=== PATIENT | male | born 1935 | race Caucasian/White ===

== ENCOUNTER 2019-06-16 10:59 | Day surgery (SDC) | payer MEDICARE ==
[~2019-06-16] VITALS: Ht 172.7 cm; Wt 59.6 kg
[~2019-06-16 10:59] MED LIST: ASPI-255 PO; ASPI81TA85 PO; CVS1CAP2 PO; D3 S1CAP PO; EQUALIQ7 PO; FINA5TAB2 PO; FLOM0.4C39 PO; FLUT50SP21 NARES; GABA-1171 PO; LORA-674 PO; MENSTAB PO; METO10TA2 PO; MULT1TAB10 PO; MULTCAP PO; NS 1,000 ML IV ONE; OMEP40CA2 PO; PROBCAP4 PO; RANI1TAB38 PO; SUCR1SUS PO; SUCR1TA PO; VENTAER INH; VITAE20CA PO
[2019-06-16] MEDS ORDERED: LIDOCAINE 2% INJ 100 MG/5 ML SDV (FOR ANES.) As Ordered ONE (12:08)
[2019-06-16] MEDS ORDERED: fentaNYL 100 MCG/2 ML INJECTION (J3010) As Ordered ONE (12:11)
[2019-06-16] MEDS ORDERED: PROPOFOL 200 MG/20 ML VIAL As Ordered ONE (12:11)
[2019-06-16] MEDS ORDERED: KEYT1INJ IV (12:29)
--- NOTE | 2019-06-16 12:59 | ROOR ---
Patient Name: Pablo Blum Procedure Date: 06/16/2019 12:38 PM Date of : 1935 Age: 84 Room: [facility] Gender: Male Note Status: Finalized Procedure: Upper GI endoscopy Indications: Dysphagia Providers: Joshua Delatorre Jr, MD Referring MD: Abdi Mcnulty Requesting Provider: Medicines: Propofol per Anesthesia Complications: No immediate complications. Procedure: Pre-Anesthesia Assessment: - Prior to the procedure, a History and Physical was performed, and patient medications and allergies were reviewed. The patient is competent. The risks and benefits of the procedure and the sedation options and risks were discussed with the patient. All questions were answered and informed consent was obtained. Patient identification and proposed procedure were verified by the physician and the nurse in the pre-procedure area and in the procedure room. Mental Status Examination: alert and oriented. Airway Examination: normal oropharyngeal airway and neck mobility. Respiratory Examination: clear to auscultation. CV Examination: normal. ASA Grade Assessment: II - A patient with mild systemic disease. After reviewing the risks and benefits, the patient was deemed in satisfactory condition to undergo the procedure. The anesthesia plan was to use moderate sedation / analgesia (conscious sedation). Immediately prior to administration of medications, the patient was re-assessed for adequacy to receive sedatives. The heart rate, respiratory rate, oxygen saturations, blood pressure, adequacy of pulmonary ventilation, and response to care were monitored throughout the procedure. The physical status of the patient was re-assessed after the procedure. The Endoscope was introduced through the mouth, and advanced to the second part of duodenum. The upper GI endoscopy was accomplished without difficulty. The patient tolerated the procedure well. Findings: The upper third of the esophagus was normal. An esophago-gastric anastomosis was found in the mid esophagus. A TTS dilator was passed through the scope. Dilation with a 10-11-12 mm balloon dilator was performed to 12 mm. Diffuse moderate inflammation characterized by congestion (edema), erythema, friability and granularity was found in the gastric body, in the gastric antrum and in the prepyloric region of the stomach. The duodenal bulb, first portion of the duodenum and second portion of the duodenum were normal. Impression: - Normal upper third of esophagus. - An esophago-gastric anastomosis was found. Dilated. - Gastritis. - Normal duodenal bulb, first portion of the duodenum and second portion of the duodenum. - No specimens collected. Recommendation: - Discharge patient to home (ambulatory). Joshua Delatorre MD Joshua Delatorre Jr, MD 06/16/2019 12:58:31 PM Electronically signed by Joshua Delatorre Jr, MD Number of Addenda: 0 Note Initiated On: 06/16/2019 12:38 PM Estimated Blood Loss: Estimated blood loss: none.
[2019-06-16 13:45] VITALS: BP 114/72
== END 2019-06-16 13:53 | disposition home or self-care (01) ==
LOC: M OPP 10:59
PROVIDERS: ATTEND Surgery
DX: K29.70 Gastritis, unspecified, without bleeding (principal); Z98.890 Other specified postprocedural states; R13.10 Dysphagia, unspecified; Z79.82 Long term (current) use of aspirin; Z79.899 Other long term (current) drug therapy; Z91.040 Latex allergy status; Z85.118 Personal history of other malignant neoplasm of bronchus and lung; Z92.21 Personal history of antineoplastic chemotherapy; Z87.891 Personal history of nicotine dependence
CPT/HCPCS: 43249; J3010

== ENCOUNTER → 2020-02-23 | Outpatient (REF) | payer MEDICARE ==
[~2020-02-23] MED LIST changes: +FLUT15.820 NARES; -FLUT50SP21 NARES; +KEYT1INJ IV; -NS 1,000 ML IV ONE; -OMEP40CA2 PO; +OMEP40CA97 PO; +SUCR1ORA PO; -SUCR1SUS PO
[2020-02-23 18:00] LABS: C REACTIVE PROTEIN QUANTITATIV < 0.30 MG/DL (0.00-0.30); RHEUMATOID FACTOR QUANT < 10.0 IU/ML (<15.0)
[2020-03-02 10:10] LABS: ANCA-ATYPICAL <1:20 titer (Neg:<1:20); ANGIOTENSIN 1 CONVERTING ENZYM 44 U/L (14-82); ANTINUCLEAR ANTIBODIES DIRECT Negative (Negative); ASPERGILLUS FUMIGATUS AB Negative (Negative); AUREOBASIDIUM PULLULANS Negative (Negative); CYCLIC CITRULLINATED PEPTIDE 10 units (0-19); CYTOPLASMIC NEUTROP AB ANCA-C <1:20 titer (Neg:<1:20); MICROPOLYSPORA FAENI AB Negative (Negative); PERINUCLEAR AB ANCA-P <1:20 titer (Neg:<1:20); PIGEON SERUM AB Negative (Negative); SJOGREN'S ANTI SS-A <0.2 AI (0.0-0.9); SJOGREN'S ANTI SS-B <0.2 AI (0.0-0.9); THERMOACTINOMYCES SACCHARI Negative (Negative); THERMOACTINOMYCES VULGARIS Negative (Negative)
== END ==
LOC: M LAB REF 16:39
PROVIDERS: ATTEND Internal Medicine Pulmonary Disease
DX: J84.10 Pulmonary fibrosis, unspecified (principal)

== ENCOUNTER 2020-11-05 15:57 | Emergency (ER) | payer MEDICARE ==
[~2020-11-05] VITALS: Ht 172.7 cm; Wt 54.5 kg
[~2020-11-05 15:57] MED LIST changes: -ASPI81TA85 PO; +ASPI81TA86 PO
--- OUTSIDE RECORDS SUMMARY | 2020-11-05 16:03 | CCD | Summary of Care ---
Author Author [facility] Organization [facility] Address Unknown Phone Unavailable Care Team Providers Care Fabrication Department Supervisor Name Role Phone Rody Pham MD PCP Reason for Referral * Diagnostic Radiology (Routine) Referred By Contact Referred To Contact Status Reason Specialty Diagnoses / Procedures Lianet Hatfield, [employer]PER[employer] [address] [place] [address] Email: [email or web address] Authorized Radiology Diagnoses Primary adenocarcinoma of right lung P rocedures CT Abdomen Pelvis with Contrast * Diagnostic Radiology (Routine) Referred By Contact Referred To Contact Status Reason Specialty Diagnoses / Procedures Lianet Hatfield, [employer] [address] [place] [address] Email: [email or web address] Authorized Radiology Diagnoses Primary adenocarcinoma of right lung P rocedures CT Thorax with Contrast Reason for Visit * Diagnostic Radiology (Routine) Referred By Contact Referred To Contact Status Reason Specialty Diagnoses / Procedures Lianet Hatfield, [employer] [address] [place] [address] Email: [email or web address] Authorized Radiology Diagnoses Primary adenocarcinoma of right lung P rocedures CT Abdomen Pelvis with Contrast Encounter Details Care Team Description Date Type Department Primary adenocarcinoma of ri ght lung 10/31/[address] [facility] Encounter [address] [id number] Allergies Comments Active Allergy Reactions Severity Noted Date Latex 05/03/2012 documented as of this encounter (statuses as of 11/01/2020) Medications End Date Status Medication Sig Dispensed Refills Start Date Active Tamsulosin HCl (FLOMAX) Take 0.4 mg 0 0.4 MG CAPS by mouth Two Times Daily Active Multiple Take 1 tablet 0 Vitamins-Minerals by mouth (MULTIVITAMIN WITH daily. MINERALS) tablet Active sucralfate (CARAFATE) 1 g TAKE 1 TABLET 3 tablet BY MOUTH 8 BEFORE MEALS DAILY Active finasteride (PROSCAR) 5 Take 5 mg by 3 MG tablet mouth daily 8 Active fluticasone (FLONASE) 50 1 SPRAY IN 3 08/13 MCG/ACT nasal spray EACH NOSTRIL 8 DAILY Active VENTOLIN HFA 108 (90 TAKE 1 PUFF 3 Base) MCG/ACT inhaler BY INHALATION 8 ROUTE EVERY 4 TO 6 HOURS NEEDED Active Cholecalciferol (VITAMIN Take 1 tablet 0 D3) 2000 units TABS by mouth as needed Active aspirin 81 MG tablet Take 81 mg by 0 mouth daily Active Naproxen Sodium (ALEVE) Take 1 0 220 MG CAPS capsule by mouth Two Times Daily Active lidocaine-prilocaine Apply 30 g 3 11/24 (EMLA) cream topically as 9 needed Active gabapentin (NEURONTIN) Take 200 mg 2 01 100 MG capsule by mouth 9 nightly Active loratadine (CLARITIN) 10 TAKE 1 TABLET 5 02/08 MG tablet BY MOUTH ONCE 9 EVERY DAY Active levETIRAcetam 500 MG Oral Take 1 tablet 60 tablet 3 Tablet (KEPPRA) by mouth Two 9 Times Daily Active Sodium Chloride 1 GM Oral Take 1 g by 0 Tablet mouth Three times daily documented as of this encounter (statuses as of 11/01/2020) Active Problems Problem Noted Date Left-sided weakness 10/10/2019 Hyponatremia 10/08/2019 Primary adenocarcinoma of right lung 09/27/2018 Cancer Staging: Clinical: Stage IVB (cT 4, cN3, pM1c) - Signed by Jyoti Florian MD on 10/08/2018 Mass of right lung 09/02/2018 Esophageal cancer 11/01/2013 Spasms right side with hearburn syptoms several month s 05/03/2012 documented as of this encounter (statuses as of 11/01/2020) Immunizations Name Administration Dates Next Due Influenza Quad High Dose 06/07/2020 IM Pres Free >=65YO Influenza Tri High Dose 07/29/2019, 08/04/2018, , 08/12/2016, IM Pres Free >=65YO 08/16/2015 (FLUZONE HD) Influenza, Unspecified 06/07/2020 Pneumococcal Conjugate 06/07/2020, 08/16/2015 PCV13 Pneumococcal 11/19/2004 Polysaccharide PPV23 Tdap 08/16/2015 documented as of this encounter Social History Date Tobacco Use Types Packs/Day Years Used Quit: 1999 Former Smoker Cigarettes 1 43 Smokeless Tobacco: Never Used Comments: PT States he quit smoking in 2 000 Drinks/Week oz/Week Comments Alcohol Use No Sex Assigned at Date Recorded Male 09/01/2018 12:21 PM EST Date Recorded COVID-19 Exposure Response 10/31/2020 12:38 PM EST In the last month, have you been in contact with No / Unsure someone who was confirmed or suspected to have Coronavirus / COVID-19? documented as of this encounter Last Filed Vital Signs Not on filedocumented in this encounter Plan of Treatment Care Team Description Date Type Specialty Colt Garcia MD [facility] [place] [address] [phone] 11/13/2020 Office Visit Hematology and Onco logy Date/Time Name Type Priority Associated Diag noses 10/31/2020 2:[address] Abdomen Pelvis with Imaging Routine Primary adenocarcinoma of Contrast right lung Order Schedule Name Type Priority Associated Diag noses As Needed for 1 Occurrences starting until 10/31/2020 CT Abdomen Pelvis with Imaging Routine Primary adenocarcinoma of Contrast right lung Health Maintenance Due Date Last Done Comments MMR Vaccines (1 of 1 - 1936 Standard series) Varicella Vaccines (1 of 1936 2 - 2-dose childhood series) Zoster Vaccines (1 of 2) 1987 DTaP,Tdap,and Td Vaccines 09/13/2015 08/16/2015 (2 - Td) Influenza Vaccine 07/19/2020 06/07/2020, 06/07/2020, 07/29/2019, Additional history exists Pneumococcal Vaccine: 65+ Completed 06/07/2020, Years 08/16/2015, 11/19/2004 Pneumococcal Vaccine: Completed 06/07/2020, Pediatrics (0 to 5 Years) 08/16/2015, and At-Risk Patients (6 11/19/2004 to 64 Years) HIB Vaccines Aged Out No longer eligible based on patient's age to complete this topic Hepatitis A Vaccines Aged Out No longer eligibl e based on patient's age to complete this topic Hepatitis B Vaccines Aged Out No longer eligibl e based on patient's age to complete this topic IPV Vaccines Aged Out No longer eligible based on patient's age to complete this topic documented as of this encounter Implants Device Identifier Shelf Expiration Date Model / Serial / L ot Implanted Type Area Manufactur er 03/31/2023 [id number] / / [id number] Port- Power P-A-C -10 Fr Dl Lp - Left: Chest STEVE HS [id number] Wall MEDICAL Implanted: Qty: 1 on 10/27/2018 by Zackery Leigh MD at [facility] documented as of this encounter Procedures Comments Procedure Name Priority Date/Time Associated Diag nosis CT THORAX WITH CONTRAST Routine 10/31/2020 [place] [address] 2:21 PM EST right lung documented in this encounter Results * CT Thorax with Contrast (10/31/2020 2:21 PM EST) Specimen Impressions Performed At IMPRESSION: There is an enlarging 4.7 mm in diameter nodule in the left upper [facility] lobe. There are 2 adjacent nodules one of which was not seen previously and the other which has increased in size. Ther e is a 1.1 cm in diameter nodule at the right apex. Its size is unchanged howev er it appears less dense than on the prior examination. Stable pleural-based opacities are seen in the right upper and right middle lobes. Stable prominen t mediastinal lymph nodes are identified. There are new sclerotic foci in the bod y of the sternum. They are worrisome for blastic metastases. Patient is status post esophagectomy wi th gastric pull-through. There is persistent dilatation of the residual n ative esophagus. Mild stable apparent bilateral basilar honeycombing. Narrative Performed At CT thorax. [facility] INDICATION: Primary adenocarcinoma righ t lung. Reevaluate. TECHNIQUE: A CT of the thorax was perfo rmed. 1 mm axial images were made after the intravenous administration of 100 M LO of Omnipaque 300. Comparison is made with an examination dated July 10, 2020. Automated dose reduction techniques and/or adjustment according to patient size were used. FINDINGS: Airway patency is demonstrate d through the segmental level. There is moderate centrilobular emphysema. There is stable scarring at the left yazmin ng apex. Patchy and coarse linear parenchymal densities are present in th e left upper lobe. There is a persistent wedge-shaped pleural-based opacity abut ting the aortic arch. Irregular groundglass densities are also once aga in seen in the left upper lobe. There is a 4.7 mm in nodule in the lateral aspec t of the left upper lobe. It previously measured 3.7 mm. It is currently both l arger and denser than on the prior study. Slightly caudal to this nodule are 2 ad ditional nodules. The larger measures approximately 5 mm. Previously it measu red 3.4 mm. The smaller nodule was not seen previously. There is a stable irre gular predominantly linear pleural-based opacity in the superior segment of the left lower lobe. There is stable scarring at the right l debra apex. There is a pleural-based partially cavitated 1.1 cm in diameter nodule at the right apex. It previously measured 1.1 cm as well. It is subjecti vely less dense than it was on the prior examination. There is a subjacent 6 mm in diameter nodule that previously measured 5 mm. 2 pleural-based opacitie s are identified. The more cephalad appears to be in the anterior segment o f the right upper lobe. It currently measures 1.2 cm. It previously measured 1.1 cm. Second opacity appears to be in the right middle lobe. It measures appr oximately 4 cm. It previously measured 4 cm as well. There is a small less than 5 mm in diameter roughly nodular opacity in the caudal portion of the lateral se gment of the right middle lobe. It is unchanged. A collection of small cystic spaces is seen also in the caudal portion of the right middle lobe. It al so is unchanged. There is a stable roughly triangular pleural-based opacit y in the superior segment of the right lower lobe. A second similar area of pleural-based parenchymal density is seen in the lateral aspect of the right lower lobe. There are apparent bilateral basilar ar eas of honeycombing. Right pleural thickening is noted. Ther e is no evidence of pleural effusion. There are degenerative changes in the t horacic spine. Changes in several of the posterior right ribs suggest prior trau ma and a probable right posterior thoracotomy. There is a stable T8 compression fractu re. There is a stable fracture of the T2 spinous process. There are new scleroti c foci in the body of the sternum. Prominent lymph nodes are again identif ied in the mediastinum. The patient is status post esophagectom y with gastric pull-through. There is persistent dilatation of the residual p roximal esophagus. The intrathoracic portion of the stomach is grossly unrem arkable. For discussion of findings below the diaphragm please refer to the CT ab domen and pelvis done on the same date. There are atherosclerotic changes in th e thoracic aorta and branch vessels. No filling defects are identified in the c entral opacified pulmonary artery segments. Procedure Note Interface, Received Via [employer] [facility] - 10/31/2020 3:[address] thorax. INDICATION: Primary adenocarcinoma right lung. Reevaluate. TECHNIQUE: A CT of the thorax was performed. 1 mm axial images were made after the intravenous administration of 100 MLO of Omnipaque 300. Comparison is made with an examination dated July 10, 2020. Automated dose reduction techniques and/or adjustment according to patient size were used. FINDINGS: Airway patency is demonstrated through the segmental level. There is moderate centrilobular emphysema. There is stable scarring at the left lung apex. Patchy and coarse linear parenchymal densities are present in the left upper lobe. There is a persistent wedge-shaped pleural-based opacity abutting the aortic arch. Irregular groundglass densities are also once again seen in the left upper lobe. There is a 4.7 mm in nodule in the lateral aspect of the left upper lobe. It previously measured 3.7 mm. It is currently both larger and denser than on the prior study. Slightly caudal to this nodule are 2 additional nodules. The larger measures approximately 5 mm. Previously it measured 3.4 mm. The smaller nodule was not seen previously. There is a stable irregular predominantly linear pleural-based opacity in the superior segment of the left lower lobe. There is stable scarring at the right lung apex. There is a pleural-based partially cavitated 1.1 cm in diameter nodule at the right apex. It previously measured 1.1 cm as well. It is subjectively less dense than it was on the prior examination. There is a subjacent 6 mm in diameter nodule that previously measured 5 mm. 2 pleural-based opacities are identified. The more cephalad appears to be in the anterior segment of the right upper lobe. It currently measures 1.2 cm. It previously measured 1.1 cm. Second opacity appears to be in the right middle lobe. It measures approximately 4 cm. It previously measured 4 cm as well. There is a small less than 5 mm in diameter roughly nodular opacity in the caudal portion of the lateral segment of the right middle lobe. It is unchanged. A collection of small cystic spaces is seen also in the caudal portion of the right middle lobe. It also is unchanged. There is a stable roughly triangular pleural-based opacity in the superior segment of the right lower lobe. A second similar area of pleural-based parenchymal density is seen in the lateral aspect of the right lower lobe. There are apparent bilateral basilar areas of honeycombing. Right pleural thickening is noted. There is no evidence of pleural effusion. There are degenerative changes in the thoracic spine. Changes in several of the posterior right ribs suggest prior trauma and a probable right posterior thoracotomy. There is a stable T8 compression fracture. There is a stable fracture of the T2 spinous process. There are new sclerotic foci in the body of the sternum. Prominent lymph nodes are again identified in the mediastinum. The patient is status post esophagectomy with gastric pull-through. There is persistent dilatation of the residual proximal esophagus. The intrathoracic portion of the stomach is grossly unremarkable. For discussion of findings below the diaphragm please refer to the CT abdomen and pelvis done on the same date. There are atherosclerotic changes in the thoracic aorta and branch vessels. No filling defects are identified in the central opacified pulmonary artery segments. IMPRESSION: There is an enlarging 4.7 mm in diameter nodule in the left upper lobe. There are 2 adjacent nodules one of which was not seen previously and the other which has increased in size. There is a 1.1 cm in diameter nodule at the right apex. Its size is unchanged however it appears less dense than on the prior examination. Stable pleural-based opacities are seen in the right upper and right middle lobes. Stable prominent mediastinal lymph nodes are identified. There are new sclerotic foci in the body of the sternum. They are worrisome for blastic metastases. Patient is status post esophagectomy with gastric pull-through. There is persistent dilatation of the residual [place] and [place] esophagus. Mild stable apparent bilateral basilar honeycombing. Performing Organization Address City/State/Zipcode Ph one Number [facility] [address] [place] [address] documented in this encounter Visit Diagnoses Diagnosis Primary adenocarcinoma of right lung documented in this encounter Administered Medications Action Date Dose Rate Site Medication Order [facility] 10/31/2020 1:55 PM EST 20 mLs iohexol (OMNIPAQUE) 240 MG/ML contrast Given 20 mL 20 mL, Oral, IMG once PRN, Contrast, Starting 10/31/20 at 1305, For 1 day , Imaging Protocol, Dilute before administering, Action Date Dose Rate Site Medication Order [facility] 10/31/2020 1:10 PM EST 20 mLs iohexol (OMNIPAQUE) 240 MG/ML contrast Given 20 mL 20 mL, Oral, 1 TIME IMAGING, Wed 1 at 1315, For 1 dose, Imaging Protocol, Dilute before administering, 10/31/2020 2:15 PM EST 100 mLs iohexol (OMNIPAQUE) 300 MG/ML contrast New Bag injection 100 mL 100 mL, Intravenous, 1 TIME IMAGING, We d 10/31/20 at 1330, For 1 dose, Imaging Protocol documented in this encounter
--- OUTSIDE RECORDS SUMMARY | 2020-11-05 16:03 | CCD | Summary of Care ---
Author Author [facility] Organization [facility] Address Unknown Phone Unavailable Care Team Providers Care Polymer Materials Consultant Name Role Phone Rody Pham MD PCP Reason for Visit * Reason Comments Follow-up Encounter Details Care Team Description Date Type Department Colt Garcia MD [address], [place] [id number] Primary adenocarcinoma of right lung (Pr imary Dx) 10/23/2020 Office Visit Hematology Oncology [address] [place] [phone] Allergies Comments Active Allergy Reactions Severity Noted Date Latex 05/03/2012 documented as of this encounter (statuses as of 10/28/2020) Medications End Date Status Medication Sig Dispensed [...] as of this encounter (statuses as of 10/28/2020) Active Problems Problem Noted Date Left-sided weakness 10/10/2019 Hyponatremia 10/08/2019 Primary adenocarcinoma of right lung 09/27/2018 Cancer Staging: Clinical: Stage IVB (cT 4, cN3, pM1c) - Signed by Jyoti Florian MD on 10/08/2018 Mass of right lung 09/02/2018 Esophageal cancer 11/01/2013 Spasms right side with hearburn syptoms several month s 05/03/2012 documented as of this encounter (statuses as of 10/28/2020) Immunizations Name Administration Dates Next Due Influenza Quad High Dose 06/07/2020 IM Pres Free >=65YO Influenza Tri High Dose 07/29/2019, 08/04/2018, , 08/12/2016, IM Pres Free >=65YO 08/16/2015 (FLUZONE HD) Influenza, Unspecified 06/07/2020 Pneumococcal Conjugate 06/07/2020, 08/16/2015 PCV13 Pneumococcal 11/19/2004 Polysaccharide PPV23 Tdap 08/16/2015 documented as of this encounter Social History Date Tobacco Use Types Packs/Day Years Used Quit: 2000 Former Smoker Cigarettes 1 43 Smokeless Tobacco: Never Used Comments: PT States he quit smoking in 2 000 Drinks/Week oz/Week Comments Alcohol Use No Sex Assigned at Date Recorded Male 09/01/2018 12:21 PM EST Date Recorded COVID-19 Exposure Response 10/23/2020 12:35 PM EST In the last month, have you been in contact with No / Unsure someone who was confirmed or suspected to have Coronavirus / COVID-19? documented as of this encounter Last Filed Vital Signs Reading Time Taken Comments Vital Sign 149/66 10/23/2020 3:28 PM EST Blood Pressure 82 10/23/2020 3:28 PM EST Pulse 36.9 C (98.4 F) 10/23/2020 3:28 PM EST Temperature 14 10/23/2020 3:28 PM EST Respiratory Rate 98% 10/23/2020 3:28 PM EST Oxygen Saturation - - Inhaled Oxygen Concentration 58.5 kg (129 lb) 10/23/2020 12:53 PM EST Weight - - Height 19.05 10/08/2019 2:30 AM EST Body Mass Index documented in this encounter Progress Notes * Colt Garcia MD - 10/23/2020 1:00 PM EST I reviewed, examined and discussed the history, exam findings, assessment and pl an with the advanced manager practice during the visit and agree with the diag nosis and treatment plan as documented. He continues to do well on single agent pembrolizumab. We will proceed with treatment today and see him in 3 weeks for reevaluation. He is approaching the 2-year magdiel of his pembrolizumab and if he is doing well after 2 years of therapy we will consider a treatment break. * Lianet Hatfield NP - 10/23/2020 1:00 PM EST Hematology/Oncology Follow Up Note Diagnosis: 1. Primary adenocarcinoma of right lung Date of Cancer Diagnosis: 2007 and 09/2018( Lung) Cancer Stage Primary adenocarcinoma of right lung, Clinical: Stage IVB (cT4, cN3, pM1c) Past Treatment: [No treatment plan] Current Treatment: Treatment Goal: Curative Plan Name: OP KEYTRUDA NON-SMALL CELL LUNG PEMBROLIZUMAB Status: Active Start Date: 10/27/2018 End Date: 11/17/2020 (Planned) Provider: Kathia Matamoros NP Chemotherapy: pembrolizumab (KEYTRUDA) 200 mg in sodium chloride 0.9 % 50 mL brisa mo infusion, 200 mg, Intravenous, Once, 31 of 33 cycles Administration: 200 mg (10/27/2018), 200 mg (11/24/2018), 200 mg (07/20/2019), 200 mg (12/15/2018), 200 mg (01/05/2019), 200 mg (01/26/2019), 200 mg (02/16/2019), 200 mg (03/09/2019), 200 mg (04/12/2019), 200 mg (05/05/2019), 200 mg (06/02/2019), 200 mg (06/28/2019), 200 mg (08/11/2019), 200 mg (09/01/2019), 200 mg (09/22/2019), 200 m g (10/27/2019), 200 mg (11/17/2019), 200 mg (12/13/2019), 200 mg (01/03/2020), 200 mg (01/24/2020), 200 mg (02/14/2020), 200 mg (03/08/2020), 200 mg (03/29/2020), 200 mg (04/19/2020), 200 mg (05/10/2020), 200 mg (05/31/2020), 200 mg (06/21/2020), 200 mg (), 200 mg (08/13/2020), 200 mg (09/03/2020), 200 mg (09/27/2020) ECOG Performance Status: 1- Restricted in physically strenuous activity but ambu latory and able to carry out work of a light or sedentary nature, e.g., light ho use work, office work Oncologic History: Oncologic History Pablo Blum is a 85 y.o. male who used to be a former patient of Dr. Adhikari'casper for a past medical history of esophageal carcinoma s/p neoadjuvant chemoradiati on and esophagectomy in 2007 and stage 1 adenocarcinoma s/p SBRT in 2008. In July 2018, the patient noted that he was progressively short of breath and fatigue. A CT thorax was obtained on 08/20/2018 which showed new bilateral lung field spiculated nodules with a new spiculated mass in the RLL measuring 3.5 x 4.2 x 2.9 cm. He was referred to the [facility] where it was recommended that he undergo a PET scan. A PET scan on 09/06/18 showed multiple bilateral pulmona ry nodules, mediastinal lymphadenopathy, and a T2 spinous process lytic lesion. He underwent an IR guided biopsy of the T2 lesion which came back positive for m etastatic carcinoma.PD-L1 score came back as 90%. He was started on single agent Pembrolizumab on 10/27/2018. The first interval sc an after C4 was done on 01/26/19 and it showed good response to Keytruda.We saw t he patient on 05/05/2019. At that point in time, he is overall doing well. He continued on Keytruda cycle #9.He was seen in our office on 06/02/2019, and at t hat visit, he did receive cycle #10 of Keytruda. He was also noted to be iron d eficient, for which we did need approval for Injectafer. We also did review CT scans, in which a CT of the thorax showed decrease in size and conspicuity of mu ltiple pleural-based and parenchymal nodules/masses, and a CT of the abdomen lukas wed no CT evidence to suggest intra-abdominal metastatic disease.He was seen in our office on 07/20/2019. At that point in time, he did receive his second dose of Injectafer for his iron deficiency. Also received cycle #12 of Keytruda.He was seen in our office on 09/22/2019. At that point in time, he did receive cyc le #15 of Keytruda. We did review his CT scans in which, Dr. Garcia felt they were overall stable. In regard to the new roughly nodule or spiculated opacity in the left lower lobe, the plan was to continue to monitor this. He was overall doing well until October 08, 2019, which he started experiencing slurred speech and left arm numbness. He ended up going to the ED on September. Stroke code was activated. He was evaluated by the neuro team. He had a CT of the head, which showed no acute ischemic stroke or hemorrhage. He w as given tPA in the ED. He was admitted to the hospital. While he was admitted , he was monitored closely. MRI of the brain did not disclose any acute stroke. He was found to be hyponatremic. He was repleted with sodium tablets and also IV fluids. He was eventually discharged on October 13 to rehab.He has been following in our office since that time. Had a repeat imaging on the [facility] 2019 which showed numerous stable pleural-based masses within the right lung , stable scattered prominent mediastinal lymph nodes, stable tiny subpleural nod ule within the lingula. It did show a new, although chronic appearing, moderate T8 compression fracture. Patient was asymptomatic. The plan was to continue w ith Keytruda. He was seen in our office on 03/29/2020. At that point in time we did review CT scans in which the CT of the thorax showed stable appearance of n umerous pulmonary base masses predominantly within the right lung. Mild mediast inal adenopathy without significant change. CT of the abdomen showed no evidenc e of disease progression. The plan was to continue with Keytruda. He presented to our office on 07/19/2020. On that day he did receive cycle 28 of Keytruda. We also did review his CT scan which showed no significant evidence of progressi on of disease. Dr. Sharma did review the minimal growth in the lung nodule al though this did not warrant changing patient's treatment. Plan was to get a rep eat scan in [address] of the abdomen did show cholelithiasis consi dering this he was referred to GI. He did follow-up with the GI doctor and infor ms me a cholecystectomy is not warranted at this time. Most recently was seen i n our office on 09/27/2020 and on that day he did receive cycle #31 of Keytruda. INTERVAL HISTORY: Since his last visit he has been well. He notifies me he did not have any diffi culty with treatment. Unfortunately did miss his CT scans due to weather.In reg ards to his lung cancer continues to have baseline shortness of breath on minima l activity but overall tolerable. Does wear 2 L of oxygen at night. He denies any dysphagia, odynophagia, hoarseness of the voice or hemoptysis. Denies any c ough.Denies any immune related toxicity such as colitis, rash. He comes in today to be further evaluated and assess how he is doing. 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 He reports that he quit sm oking about 21 years ago. His smoking use included cigarettes. He has a 43.00 pa ck-year smoking history. He has never used smokeless tobacco. He reports that he does not drink alcohol or use drugs. Medications and Allergies Allergies Allergen Reactions Latex Current Outpatient Medications on File Prior to Visit Medication Sig Dispense Refill aspirin 81 MG tablet Take 81 mg by mouth daily Cholecalciferol (VITAMIN D3) 2000 units TABS Take 1 tablet by mouth as ne eded finasteride (PROSCAR) 5 MG tablet Take 5 mg by mouth daily 3 fluticasone (FLONASE) 50 MCG/ACT nasal spray 1 SPRAY IN EACH NOSTRIL IMTIAZ Y 3 gabapentin (NEURONTIN) 100 MG capsule Take 200 mg by mouth nightly 2 levETIRAcetam 500 MG Oral Tablet (KEPPRA) Take 1 tablet by mouth Two Time s Daily 60 tablet 3 lidocaine-prilocaine (EMLA) cream Apply topically as needed 30 g 3 loratadine (CLARITIN) 10 MG tablet TAKE 1 TABLET BY MOUTH ONCE EVERY DAY 5 Multiple Vitamins-Minerals (MULTIVITAMIN WITH MINERALS) tablet Take 1 tab let by mouth daily. Naproxen Sodium (ALEVE) 220 MG CAPS Take 1 capsule by mouth Two Times Loni ly Sodium Chloride 1 GM Oral Tablet Take 1 g by mouth Three times daily sucralfate (CARAFATE) 1 g tablet TAKE 1 TABLET BY MOUTH BEFORE MEALS IMTIAZ Y 3 Tamsulosin HCl (FLOMAX) 0.4 MG CAPS Take 0.4 mg by mouth Two Times Daily VENTOLIN HFA 108 (90 Base) MCG/ACT inhaler TAKE 1 PUFF BY INHALATION ROUT E EVERY 4 TO 6 HOURS NEEDED 3 No current facility-administered medications on file prior to visit. Review of Systems Constitutional: Positive for fatigue. Negative for activity change, appetite didier nge, chills, diaphoresis, fever and unexpected weight change. HENT: Negative. Eyes: Negative. Respiratory: Positive for shortness of breath. Negative for apnea, cough, chokin g, chest tightness, wheezing and stridor. " My sob has been the same. I am fine at rest, I usually get sob when I do activities around the house. I still wear oxygen at night." Cardiovascular: Negative. Negative for chest pain, palpitations and leg swellin g. Gastrointestinal: Negative. Negative for abdominal distention, abdominal pain, anal bleeding, blood in stool, constipation, diarrhea, nausea, rectal pain and v omiting. Endocrine: Negative. Genitourinary: Negative. Musculoskeletal: Negative. Skin: Negative. Allergic/Immunologic: Negative. Neurological: Negative. Hematological: Negative. Psychiatric/Behavioral: Negative. All other systems reviewed and are negative. Objective: Vitals: Vitals - 1 value per visit 09/03/2020 09/27/2020 10/23/2020 SYSTOLIC 145 155 119 DIASTOLIC 69 77 68 PULSE 72 71 87 TEMPERATURE 97.3 97.5 97.9 RESPIRATIONS 16 12 12 Weight (kg) 59.058 kg 60.328 kg 58.514 kg HEIGHT - - - SPO2 96 99 95 BODY MASS INDEX 19.23 kg/m2 19.64 kg/m2 19.05 kg/m2 PAIN SCALE - SCORE 0 0 0 PAIN SCALE - LOCATION - - - Some recent data might be hidden Physical Exam Vitals signs reviewed. Constitutional: General: He is not in acute distress. Appearance: Normal appearance. He is not ill-appearing, toxic-appearing or di aphoretic. Comments: Tomiposis,accompanied by SALVADOR: Head: Normocephalic and atraumatic. Right Ear: External ear normal. Left Ear: External ear normal. Nose: Nose normal. No congestion or rhinorrhea. Mouth/Throat: Mouth: Mucous membranes are moist. Pharynx: Oropharynx is clear. No oropharyngeal exudate or posterior oropharyn geal erythema. Eyes: General: No scleral icterus. Right eye: No discharge. Left eye: No discharge. Extraocular Movements: Extraocular movements intact. Conjunctiva/sclera: Conjunctivae normal. Pupils: Pupils are equal, round, and reactive to light. Neck: Musculoskeletal: Normal range of motion and neck supple. No neck rigidity or muscular tenderness. Vascular: No carotid bruit. Cardiovascular: Rate and Rhythm: Normal rate and regular rhythm. Pulses: Normal pulses. Heart sounds: Normal heart sounds. No murmur. No friction rub. No gallop. Pulmonary: Effort: Pulmonary effort is normal. No respiratory distress. Breath sounds: Normal breath sounds. No stridor. No wheezing, rhonchi or rale s. Chest: Chest wall: No tenderness. Abdominal: General: Abdomen is flat. Bowel sounds are normal. There is no distension. Palpations: Abdomen is soft. There is no mass. Tenderness: There is no abdominal tenderness. There is no right CVA tendernes s, left CVA tenderness, guarding or rebound. Hernia: No hernia is present. Musculoskeletal: Normal range of motion. General: No swelling, tenderness, deformity or signs of injury. Right lower leg: No edema. Left lower leg: No edema. Lymphadenopathy: Cervical: No cervical adenopathy. Skin: General: Skin is warm and dry. Coloration: Skin is not jaundiced or pale. Findings: No bruising, erythema, lesion or rash. Comments: Port intact to chest wall Neurological: General: No focal deficit present. Mental Status: He is alert and oriented to person, place, and time. Psychiatric: Mood and Affect: Mood normal. Behavior: Behavior normal. Thought Content: Thought content normal. Judgment: Judgment normal. Imaging Ct Abdomen Pelvis With Contrast Result Date: 07/10/2020 IMPRESSION: No definite evidence of progression of malignancy on the current study. There is mild intrahepatic biliary duct prominence and increasing size of the co mmon bile duct. Cannot exclude filling defects within the common bile duct and c orrelation with an MRCP is suggested as clinically indicated. The liver is other clarke unchanged compared to the most recent previous study. Cholelithiasis and mild gallbladder wall thickening and enhancement. This is unc hanged since the previous study. It could be further evaluated at the time of an MRCP or an ultrasound. Calcifications in the region of the omentum and adjacent to the upper pole of th e spleen. This is most suggestive of old fat necrosis more than treated disease and this was present on the previous study dated 12/19/2008 but has since become c alcified. Status post gastric pull-up with fluid level within it. It is associated with mi ld rim enhancement and thickening which is was present on the previous CT scan. In addition there is a focal area of thickening at the level of the hiatus and t his should be further evaluated to exclude an underlying lesion or inflammation. . It is likely inflammatory in nature since it was present on the previous CT sc an since 12/19/2008 and was also seen on the most recent CT scan dated 03/26/2020. Diverticulosis without evidence of acute diverticulitis. Diffuse osteopenia and mottled appearance of the pelvic bones and proximal femur with multiple areas of lucencies throughout the bones. This could be related to diffuse osteopenia but cannot exclude multiple myeloma or metastatic disease. R ecommend correlation with an MRI and clinical findings. This is present on the m ost recent previous study. Other chronic findings as described above. Ct Thorax With Contrast Result Date: 07/10/2020 IMPRESSION: 1. A mixed solid and groundglass opacity within the left upper lobe has a solid nodular component which has been increasing in size of the past 2 years. These f indings are concerning for primary lung malignancy such as adenocarcinoma. 2. Stable predominantly pleural-based opacities throughout both lungs are noted. 3. Stable lymphadenopathy within the mediastinum. No significant lymphadenopathy within either hilar is identified. 4. No significant change in the irregular lucency and sclerosis within the T2 to the spinous process Lab Review Office Visit on 10/23/2020 Component Date Value Ref Range Status White Blood Cell 10/23/2020 7.9 4 - 10 10*3/uL Final Red Blood Cell 10/23/2020 4.01* 4.6 - 6.1 10*6/uL Final Hemoglobin 10/23/2020 12.7* 13.5 - 18 g/dL Final Hematocrit 10/23/2020 37.0* 41 - 53 % Final Mean Cell Volume 10/23/2020 92.4 80 - 96 fL Final Mean Cell Hemoglobin 10/23/2020 31.7 27 - 33 pg Final Mean Cell Hgb Conc 10/23/2020 34.3 32.0 - 36.0 g/dL Final Red Cell Dist Width 10/23/2020 13.4 11.5 - 14.5 % Final Platelet Count 10/23/2020 219 150 - 400 10*3/uL Final Differential Type 10/23/2020 Automated Diff Final Neutrophil 10/23/2020 74 % Final Lymphocyte 10/23/2020 8 % Final Monocyte 10/23/2020 10 % Final Eosinophil 10/23/2020 7 % Final Basophil 10/23/2020 1 % Final Abs Neutrophil 10/23/2020 5.87 1.8 - 7.0 10*3/uL Final Abs Lymphocyte 10/23/2020 0.60* 1.2 - 4.0 10*3/uL Final Abs Monocyte 10/23/2020 0.78 0 - 0.8 10*3/uL Final Abs Eosinophil 10/23/2020 0.56* 0 - 0.5 10*3/uL Final Abs Basophil 10/23/2020 0.07 0 - 0.2 10*3/uL Final Nucleated Red Blood Cells 10/23/2020 0 0 - 0 /100 Final ] Assessment: The patient is an 85-year-old gentleman, who has past medical history of esophageal carcinoma, status post neoadjuvant chemotherapy and radiation, and esophagectomy in 2018, and stage I adenocarcinoma, status post SBRT in 2008. In early 2017, he was diagnosed with stage IV adenocarcinoma of the lung with ri ght lower lobe mass, mediastinal adenopathy in T2 spinous lesion also, and bilat eral pulmonary nodules T4 N3 M1c, stage IV, PD-L1 expression was 90%. He was st arted on Keytruda since October 2018. He is status post 30 cycles of Keytruda. Patient's recent CT scans from June 2020 overall showed no significant evid ence of progression of disease. Dr. Garcia has reviewed the minimal growth in the lung nodule this does not warrant changing patient's treatment. Considering he is overall doing well and not significantly symptomatic besides stable sob, we will continue with Keytruda with plans to repeat a scan in 3 months time. We plan on proceeding with a total of 2 years of immunotherapy. In regards to the cholelithiasis findings on the CT of the abdomen patient did follow up with GI and informs me cholecystectomy was not warranted at this time. 1. Stage IV Lung cancer. At this present time,we will proceed with cycle #32 of Keytruda. 2. Iron deficiency anemia. S/p 1 dose of Injectafer. Recent ferritin from was 15 5.We will hold on injectafer today. 3. Fatigue/thyroid monitoring while on immunotherapy. TSH from today is pending. 4. Hyponatremia. CMP shows sodium 132. Patient is asymptomatic.No intervention w e will continue to monitor this at his next appt. 5. SOB.Stable since last visit. No further intervention is needed.Patient is on nocturnal oxygen. 6. HTN.Improved. Asymptomatic. We will continue to montior BP moving forward 7. Weight loss. Weight has minimally decreased. We will continue to trend patien t weight moving forward. 8. Cholelithiasis and mild gallbladder wall thickening.Patient informs me he has met with GI and at this point they do not recommend removing his gallbladder. We will further evaluate this on his next ct scan. Plan: Pablo Blum should return in 3 weeks for ov with and Valentino rodriguez Imaging prior to return to clinic?:yes,ct thorax,abdomen and pelvis Labs on return to clinic? yes,cbc,cmp,tsh Medication changes? no Opioid induced constipation? no Meds reconciled? yes Referrals needed? no I did notify if they develop any problems or issues prior to return, they should feel free to give our office a call immediately 24 hours a day. Pt confirms hav ing number to the CC. Certain parts of this note may have been carried over from prior Hematology/Onco logy notes to maintain accuracy of patient's pertinent medical history and kody nuity of care. The details were verified and edited as appropriate. Patient was seen discussed and examined by myself and Dr. Jose Hatfield NP-C documented in this encounter Nursing Notes * Judy Lara RN - 10/23/2020 1:00 PM EST TREATMENT ADMINISTRATION NOTE: Pablo Blum presents to infusion for Cycle 32, Day 1 of Keytruda. See Oncolo gy Nursing Assessment flowsheet for patients assessment.Port flushed easil y and blood return was confirmed before, during, and after treatment. Patient to lerated infusion well. Following infusion, Port discontinued per protocol. VS st able, and as noted below. Patient encouraged to call with any questions or yecenia rns and aware of 24 hour on-call service. AVS provided with next appointment michelle e and time. Patient discharged home, accompanied by . Visit Vitals BP 149/66 (BP Location: Left arm) Pulse 82 Temp 36.9 C (98.4 F) (Oral) Resp 14 Wt 58.5 kg (129 lb) SpO2 98% BMI 19.05 kg/m documented in this encounter Plan of Treatment Care Team Description Date Type Specialty 10/31/2020 Appointment Radiology Colt Garcia MD [facility] [place] [address] [phone] 11/13/2020 Office Visit Hematology and Onco logy Health Maintenance Due Date Last Done Comments [...] Area Manufactur er 03/31/2023 [id number] / / [id number] Port- Power P-A-C -10 Fr Dl Lp - Left: Chest STEVE HS [id number] Wall MEDICAL Implanted: Qty: 1 on 10/27/2018 by Zackery Leigh MD at [facility] documented as of this encounter Procedures Comments Procedure Name Priority Date/Time Associated Diag nosis CBC AND DIFFERENTIAL STAT 10/23/2020 Primary a denocarcinoma of 12:45 PM EST right lung TSH Routine 10/23/2020 Primary adenoca rcinoma of 12:45 PM EST right lung COMPREHENSIVE METABOLIC STAT 10/23/2020 Primar y adenocarcinoma of PANEL 12:45 PM EST right lung documented in this encounter Results * TSH (10/23/2020 12:45 PM EST) TSH 3.280 0.270 - 4.200 [facility] u[IU]/mL CLINICAL PATHOLOGY Specimen Plasma Performing Organization Address [facility] one Number [facility] CLINICAL [address] [place], [place] [address] PATHOLOGY * Comprehensive metabolic panel (10/23/2020 12:45 PM EST) Albumin 4.0 3.5 - 5.2 g/dL [facility] PATHOLOGY Bilirubin, 0.4 <1.2 mg/dL [facility] Total CLINICAL PATHOLOGY Calcium 9.1 8.8 - 10.2 mg/dL [facility] PATHOLOGY Chloride 97 (L) 98 - 107 mmol/L [facility] PATHOLOGY Creatinine 0.83 0.70 - 1.20 mg/dL [facility] Glucose 161 (H) 70 - 140 mg/dL [facility] PATHOLOGY Alkaline 82 40 - 129 U/L [facility] Phosphatase CLINICAL PATHOLOGY Potassium 4.1 3.4 - 5.1 mmol/L [facility] Total Protein 6.6 6.4 - 8.3 g/dL [facility] Sodium 132 (L) 136 - 145 mmol/L [facility] PATHOLOG[facility] AST/SGO 13 <40 U/L [facility] Blood Urea 15 8 - 23 mg/dL [facility] Nitrogen CLINICAL PATHOLOGY Osmolality, Parker 278 275 - 300 mosm/kg [facility] BUN/Cre Ratio 18 [facility] PATHOLOGY Bicarbonate 26 22 - 29 mmol/L [facility] PATHOLOGY ALT/SGP 10 <41 U/L [facility] PATHOLOGY Anion Gap 9 8 - 15 mmol/L [facility] PATHOLOGY GFR Non eGFR is not calculated in >60 mL/min/1.73m2 [facility] 2009 patients <18 or >80 years of CLINICAL CDK-EPI age. PATHOLOGY GFR eGFR is not calculated in >60 mL/min/1.73m2 [facility] 2008 patients <18 or >80 years of CLINICAL CKD-EPI age. PATHOLOGY Specimen Plasma Performing Organization Address [facility] one Number [facility] [address] [place], [place] [address] PATHOLOGY * CBC and differential (10/23/2020 12:45 PM EST) White Blood 7.9 4 - 10 10*3/uL [facility] Clin Pathology Red Blood Cell 4.01 (L) 4.6 - 6.1 10*6/uL [facility] Clin Pathology Hemoglobin 12.7 (L) 13.5 - 18 g/dL [facility] Clin Pathology Hematocrit 37.0 (L) 41 - 53 % [facility] Clin Pathology Mean Cell 92.4 80 - 96 fL [facility] Volume [facility] Clin Pathology Mean Cell 31.7 27 - 33 pg [facility] Hemoglobin [facility] Clin Pathology Mean Cell Hgb 34.3 32.0 - 36.0 g/dL [facility] Clin Pathology Red Cell Dist 13.4 11.5 - 14.5 % [facility] Width [facility] Clin Pathology Platelet Count 219 150 - 400 10*3/uL [facility] Clin Pathology Differential Automated Diff [facility] Type [facility] Clin Pathology Neutrophil 74 % [facility] Clin Pathology Lymphocyte 8 % [facility] Clin Pathology Monocyte 10 % [facility] Clin Pathology Eosinophil 7 % [facility] Clin Pathology Basophil 1 % [facility] Clin Pathology Abs Neutrophil 5.87 1.8 - 7.0 10*3/uL [facility] Clin Pathology Abs Lymphocyte 0.60 (L) 1.2 - 4.0 10*3/uL [facility] Clin Pathology Abs Monocyte 0.78 0 - 0.8 10*3/uL [facility] Clin Pathology Abs Eosinophil 0.56 (H) 0 - 0.5 10*3/uL [facility] Clin Pathology Abs Basophil 0.07 0 - 0.2 10*3/uL [facility] Clin Pathology Nucleated Red 0 0 - 0 /100{WBCs} [facility] Blood Cells [facility] Clin Pathology Specimen EDTA Whole Blood Performing Organization Address City/State/[facility] [place] Ph one Number [facility] [address] [place], [place] [address] PATHOLOGY [facility] [address] [place], [place] [address] Clin Pathology documented in this encounter Visit Diagnoses Diagnosis Primary adenocarcinoma of right lung - Primary documented in this encounter Administered Medications Action Date Dose Rate Site Medication Order MAR Action 10/23/2020 2:27 PM EST 200 mg 100 mL/hr pembrolizumab (KEYTRUDA) 200 mg in New Bag sodium chloride 0.9 % 50 mL chemo infusion 200 mg, Intravenous, Administer over 30 Minutes, Once, 10/23/20 at 1400, For 1 dose documented in this encounter
--- OUTSIDE RECORDS SUMMARY | 2020-11-05 16:03 | CCD ---
Continuity of Care Document (CCD) Created on: 10/09/2020 Pablo Blum External Reference #: [id number] : [id number] Sex: Male Author Pablo Valentine M.D. Organization Unknown Address [facility] [address] [place] [address] Phone [phone] Care Team Providers Care Edge Burnisher Name Role Phone Nenzel Zyngenia AUTM [phone] Problems Active Problems Provider Date Difficulty passing urine Joe Sanchez M.D. Onset: 04/17/20 20 Social History Type Date Description Comments Sex Unknown Tobacco Use Start: Unknown End: Unknown Quit Tobacco Use Start: Unknown Never Smoked Cigars Tobacco Use Start: Unknown Never Smoked A Pipe Smoking Status Reviewed: 06/05/20 Never Smoked A Pipe Tobacco Use Start: Unknown Never Used Smokeless Tobacco ETOH Use Consumes 2 beers per day Tobacco Use Start: Unknown End: Unknown Patient is a former smoker Recreational Drug Use Denies Drug Use Allergies, Adverse Reactions, Alerts Active Allergies Reaction Severity Comments Date NKDA 03/20/2020 Latex 03/20/2020 NKFA 03/20/2020 Medications Active Medications SIG Qnty Indications Ordering Provide r Date Finasteride 5mg Tablets Take 1 Tablet By Mouth Every Day Unknown Tamsulosin HCL 0.4mg Capsules Take 1 Capsule By Mouth Twice A Day Unknown Fluticasone Propionate 50mcg/Act Suspension [place] 1 [place] In Each Nostril Daily Unkno wn Ventolin HFA 108(90Base) mcg/Act A erosol Inhale 1 puff By Mouth Every 1 Hour as Needed Un known Ranitidine HCL 150mg Tablets Take 1 Tablet By Mouth Twice A Day as Needed Unknown 0 Gabapentin 100mg Capsules Please See Attached For Detailed Directions Unknown Loratadine 10mg Tablets Take 1 Tablet By Mouth Every Day Unknown Sodium Chloride 1gm Tablets Take 4 Tablets By Mouth Every Day Unknown Levetiracetam 500mg Tablets Take 1 Tablet By Mouth Twice A Day Unknown Keytruda 100mg/4ML Solution Unknown Richard Aspirin Ec Low Dose 81mg Tab lets DR 1 tab by mouth every day Unknown 0 000 Immunizations Description No Information Available Vital Signs Date Vital Result Comment 10/09/2020 9:42am BP Systolic 136 mmHg BP Diastolic 72 mmHg Heart Rate 60 /min Body Temperature 98.7 F O2 % BldC Oximetry 99 % Weight 148.00 lb Weight 67.133 kg Height 68 inches 5'8" BMI (Body Mass Index) 22.5 kg/m2 BSA (Body Surface Area) 1.80 m2 06/05/2020 9:21am Body Temperature 97.2 F Respiratory Rate 16 /min Weight 153.00 lb Weight 69.401 kg Results Test Acquired Date Facility Test Result H/L Range Note Inhouse Ua 10/09/2020 In Office Ua Color yellow Ua Appearance clear Spec [place] 1.000 Ua PH Test Strip 8 Leukocytes - Ua Nitrate - Ua Protein trace Inhouse Glucose normal Ua Ketones - Urobilinogen normal Ua Bilirubin - Blood - Inhouse Ua 06/05/2020 In Office Ua Color yellow Ua Appearance clear Spec [place] 1.000 Ua PH Test Strip 7 Leukocytes - Ua Nitrate - Ua Protein - Inhouse Glucose normal Ua Ketones - Urobilinogen normal Ua Bilirubin - Blood - Procedures Date Code Description Status 04/17/2020 67180 Measurement Post Voi ding Residual Urine By Ultrasound,Non-Imaging Completed Medical Devices Description No Information Available Encounters Type Date Location Provider Dx Diagnosis Office Visit 10/09/2020 10:00a [facility] Joe Sanchez M.D. N40.1 Benign prostatic hyperplasia with lower urinary tract symp R39.198 Other difficulties with mict urition Assessments Date Code Description Provider 10/09/2020 N40.1 Benign prostatic hyperplasia wit h lower urinary tract symptoms Joe Sanchez M.D. 10/09/2020 R39.198 Other difficulties with micturit ion Joe Sanchez M.D. 06/05/2020 N40.1 Benign prostatic hyperplasia wit h lower urinary tract symptoms ESPERANZA Carlson 04/17/2020 R39.198 Other difficulties with micturit ion ESPERANZA Carlson 04/17/2020 R39.198 Other difficulties with micturit sarah Sanchez M.D. Plan of Treatment 10/09/2020 - Joe Sanchez M.D.* N40.1 Benign prostatic hyperplasia with lower urinary tract symptoms* Comments:* Patient presents to the clinic today with history of BPH with LUTS for surgery discussion.Physical examination done in the office today was unremarkable from a standpoint.Anatomy and functions of male genitourinary system were reviewed with the patient.Pathophysiology of BPH with LUTS was reviewed with the patient at length.Patient is inquiring about urolift surgery. We informed him that urolift is a minimally invasive non-ablative surgical technique for BPH. Urolift holds or lifts the enlarged prostate tissue out of the way so it no longer blocks the urethra. We will also place a catheter while we perform the procedure.Patient is an appropriate candidate for urolift procedure. Pre and post procedure guidelines were explained to the patient; patient agreed to it. We will set him up for urolift procedure. Patient verbalized understanding and agreed to the care plan. All of his questions were answered. Patient was advised to call or RTC if he develops any new concerns or complaints.Follow up to be decided after the urolift is done. * R39.198 Other difficulties with micturition* Comments:* As above. Functional Status Description No Information Available Mental Status Description No Information Available Referrals Description No Information Available
--- OUTSIDE RECORDS SUMMARY | 2020-11-05 16:03 | CCD | Continuity of Care Document ---
Author Author Urology Resource Schedule, D monica Valencia Organization Unknown Address [address] [place] [address] Phone [phone] Care Team Providers Care [employer] Advanced Operator Maintainer Name Role Phone [employer] AUTM [phone] Problems Active Problems Provider Date Difficulty passing [...] A Day Unknown Fluticasone Propionate 50mcg/Act Suspension [place] 1 [place] In Each Nostril Daily Unkno wn Ventolin [...] Ua Color yellow Ua Appearance clear Spec [place] 1.000 Ua PH Test Strip 8 Leukocytes - Ua Nitrate - Ua Protein trace Inhouse Glucose normal Ua Ketones - Urobilinogen normal Ua Bilirubin - Blood - Inhouse Ua 06/05/2020 In Office Ua Color yellow Ua Appearance clear Spec [place] 1.000 Ua PH Test Strip 7 Leukocytes - Ua Nitrate - Ua Protein - Inhouse Glucose normal Ua Ketones - Urobilinogen normal Ua Bilirubin - Blood - Procedures Date Code Description Status 04/17/2020 79517 Measurement Post Voi ding Residual Urine By Ultrasound,Non-Imaging Completed Medical Devices Description No Information Available Encounters Description No Information Available Assessments Date Code Description Provider 06/05/2020 N40.1 Benign prostatic hyperplasia wit h lower urinary tract symptoms ESPERANZA Carlson 04/17/2020 R39.198 Other difficulties with micturit ion ESPERANZA Carlson 04/17/2020 R39.198 Other difficulties with micturit ion Joe Sanchez M.D. Plan of Treatment No Information Available Functional Status Description No Information Available Mental Status Description No Information Available Referrals Description No Information Available
--- OUTSIDE RECORDS SUMMARY | 2020-11-05 16:04 | CCD | Summary of Care ---
Author Author [facility] Organization [facility] Address Unknown Phone Unavailable Care Team Providers Care Bark Grinder Name Role Phone Rody Pham MD PCP Reason for Visit * Reason Comments Follow-up Encounter Details Care Team Description Date Type Department Colt Garcia MD [address], [place] [id number] Primary adenocarcinoma of right lung (Pr imary Dx) 09/03/2020 Office Visit Hematology Oncology [address] [place] [id number] Allergies Comments Active Allergy Reactions Severity Noted Date Latex 05/03/2012 documented as of this encounter (statuses as of 09/06/2020) Medications End Date Status Medication Sig Dispensed Refills Start Date Active Tamsulosin HCl (FLOMAX) Take 0.4 mg 0 0.4 MG CAPS by mouth Two Times Daily Active Multiple Take 1 tablet 0 Vitamins-Minerals by mouth (MULTIVITAMIN WITH daily. MINERALS) tablet Active sucralfate (CARAFATE) 1 g TAKE 1 TABLET 3 9/201 tablet BY MOUTH 8 BEFORE MEALS DAILY Active finasteride (PROSCAR) 5 Take 5 mg by 3 08/07/ 201 MG tablet mouth daily 8 Active fluticasone [...] as of this encounter (statuses as of 09/06/2020) Active Problems Problem Noted Date Left-sided weakness 10/10/2019 Hyponatremia 10/08/2019 Primary adenocarcinoma of right lung 09/27/2018 Cancer Staging: Clinical: Stage IVB (cT 4, cN3, pM1c) - Signed by Jyoti Florian MD on 10/08/2018 Mass of right lung 09/02/2018 Esophageal cancer 11/01/2013 Spasms right side with hearburn syptoms several month s 05/03/2012 documented as of this encounter (statuses as of 09/06/2020) Immunizations Name Administration Dates Next Due Influenza [...] PM EST Date Recorded COVID-19 Exposure Response 09/03/2020 10:58 AM EST In the last month, have you been in contact with No / Unsure someone who was confirmed or suspected to have Coronavirus / COVID-19? documented as of this encounter Last Filed Vital Signs Reading Time Taken Comments Vital Sign 145/69 09/03/2020 1:44 PM EST Blood Pressure 72 09/03/2020 1:44 PM EST Pulse 36.3 C (97.3 F) 09/03/2020 11:54 AM EST Temperature 16 09/03/2020 1:44 PM EST Respiratory Rate 96% 09/03/2020 11:54 AM EST Oxygen Saturation - - Inhaled Oxygen Concentration 59.1 kg (130 lb 3.2 oz) 09/03/2020 11:32 AM EST Weight - - Height 19.23 10/08/2019 2:30 AM EST Body Mass Index documented in this encounter Progress Notes * Colt Garcia MD - 09/03/2020 11:45 AM EST Hematology/Oncology Follow Up Note Diagnosis: 1. Primary adenocarcinoma of right lung Date of Cancer Diagnosis: 2007 and 09/2018( Lung) Cancer Stage Primary adenocarcinoma of right lung, Clinical: Stage IVB (cT4, cN3, pM1c) Past Treatment: [No treatment plan] Current Treatment: Treatment Goal: Curative Plan Name: OP KEYTRUDA NON-SMALL CELL LUNG PEMBROLIZUMAB Status: Active Start Date: 10/27/2018 End Date: 09/28/2020 (Planned) Provider: Kathia Matamoros NP Chemotherapy: pembrolizumab (KEYTRUDA) 200 mg in sodium chloride 0.9 % 50 mL brisa mo infusion, 200 mg, Intravenous, Once, 30 of 31 cycles Administration: 200 mg (10/27/2018), 200 mg [...] mg (05/31/2020), 200 mg (06/21/2020), 200 mg (1 ), 200 mg (08/13/2020), 200 mg (09/03/2020) ECOG Performance Status: 1- Restricted in physically [...] 2.9 cm. He was referred to the [facility] where it was recommended that he undergo a PET scan. A PET scan on 09/06/18 showed multiple bilateral pulmona ry nodules, mediastinal lymphadenopathy, and a T2 spinous process lytic lesion. He underwent an IR guided biopsy of the T2 lesion which came back positive for m etastatic adenocarcinoma.PD-L1 score came back as 90%. He was started on single agent Pembrolizumab on 10/27/2018. The first interval sc an after C4 was done on 01/26/19 and it showed good response to Keytruda.We saw t yuli patient on 05/05/2019. At that point in time, he is overall doing well. He continued on Keytruda cycle #9.He was seen in our office on 06/02/2019, and at t [facility] visit, he did receive cycle #10 of [...] no CT evidence to suggest intra-abdominal metastatic disease. He was seen i n our office on 07/20/2019. At that point in time, he did receive his second do se of Injectafer for his iron deficiency. He was overall doing well until October [...] Had a repeat imaging on the [facility] 2019 which showed numerous stable pleural-based masses within the right lung , stable scattered prominent mediastinal lymph nodes, stable tiny subpleural nod ule within the lingula. It did show a new, although chronic appearing, moderate T8 compression fracture. Patient was asymptomatic. He has now received a total of 29 doses of pembrolizumab last on August 13 0. He comes in today for routine reevaluation his last CT scans were done on 2019. INTERVAL HISTORY: Since I saw him last he continues to do well. His appetite is fine and weight i s stable he does have baseline dyspnea on exertion and uses oxygen at night. He denies any hemoptysis, hoarseness or dysphagia. No cough. He denies any diarr hea or rash. His energy level is good and I would rate his performance status a t 1. No headaches or areas of pain. Subjective: Past Medical History: Diagnosis Date Arthritis [...] reports that he quit sm oking about 20 years ago. His smoking use included cigarettes. [...] Take 200 mg by mouth nightly 2 lidocaine-prilocaine (EMLA) cream Apply topically as needed [...] EVERY 4 TO 6 HOURS NEEDED 3 levETIRAcetam 500 MG Oral Tablet (KEPPRA) Take 1 tablet by mouth Two Time s Daily 60 tablet 3 No current facility-administered medications on file prior to visit. Review of systems: Otherwise unremarkable Objective: Vitals: Vitals - 1 value per visit 07/19/2020 08/13/2020 09/03/2020 SYSTOLIC 126 152 145 DIASTOLIC 71 65 69 PULSE 79 72 72 TEMPERATURE 98 97.6 97.3 RESPIRATIONS 18 16 16 Weight (kg) 59.875 kg 58.968 kg 59.058 kg HEIGHT - - - SPO2 98 98 96 BODY MASS INDEX 19.49 kg/m2 19.2 kg/m2 19.23 kg/m2 PAIN SCALE - SCORE 0 0 0 PAIN SCALE - LOCATION - - - Some recent data might be hidden HEENT: No scleral icterus, No Caorl's syndrome, oral cavity is clear. Neck: no adenopathy, no cervical, supraclavicular or axillary adenopathy. Lungs are robson ar to auscultation. Cardiac exam S1 S2, no murmurs or S3. Abdominal exam soft, non-tender, no masses or hepatosplenomegaly. Extremities without clubbing or e naomi. Imaging Ct Abdomen Pelvis With Contrast Result [...] spinous process Lab Review Office Visit on 09/03/2020 Component Date Value Ref Range Status White Blood Cell 09/03/2020 8.6 4 - 10 10*3/uL Final Red Blood Cell 09/03/2020 4.10* 4.6 - 6.1 10*6/uL Final Hemoglobin 09/03/2020 13.1* 13.5 - 18 g/dL Final Hematocrit 09/03/2020 37.2* 41 - 53 % Final Mean Cell Volume 09/03/2020 90.7 80 - 96 fL Final Mean Cell Hemoglobin 09/03/2020 32.0 27 - 33 pg Final Mean Cell Hgb Conc 09/03/2020 35.3 32.0 - 36.0 g/dL Final Red Cell Dist Width 09/03/2020 13.3 11.5 - 14.5 % Final Platelet Count 09/03/2020 220 150 - 400 10*3/uL Final Differential Type 09/03/2020 Automated Diff Final Neutrophil 09/03/2020 76 % Final Lymphocyte 09/03/2020 7 % Final Monocyte 09/03/2020 9 % Final Eosinophil 09/03/2020 7 % Final Basophil 09/03/2020 1 % Final Abs Neutrophil 09/03/2020 6.53 1.8 - 7.0 10*3/uL Final Abs Lymphocyte 09/03/2020 0.58* 1.2 - 4.0 10*3/uL Final Abs Monocyte 09/03/2020 0.81* 0 - 0.8 10*3/uL Final Abs Eosinophil 09/03/2020 0.60* 0 - 0.5 10*3/uL Final Abs Basophil 09/03/2020 0.10 0 - 0.2 10*3/uL Final Nucleated Red Blood Cells 09/03/2020 0 0 - 0 /100 Final Albumin 09/03/2020 4.2 3.5 - 5.2 g/dL Final Bilirubin, Total 09/03/2020 0.6 <1.2 mg/dL Final Calcium 09/03/2020 9.1 8.8 - 10.2 mg/dL Final Chloride 09/03/2020 96* 98 - 107 mmol/L Final Creatinine 09/03/2020 0.72 0.70 - 1.20 mg/dL Final Glucose 09/03/2020 81 70 - 140 mg/dL Final Alkaline Phosphatase 09/03/2020 80 40 - 129 U/L Final Potassium 09/03/2020 4.0 3.4 - 5.1 mmol/L Final Total Protein 09/03/2020 6.7 6.4 - 8.3 g/dL Final Sodium 09/03/2020 131* 136 - 145 mmol/L Final AST/SGO 09/03/2020 19 <40 U/L Final Blood Urea Nitrogen 09/03/2020 14 8 - 23 mg/dL Final Osmolality, Parker 09/03/2020 271* 275 - 300 mosm/kg Final BUN/Cre Ratio 09/03/2020 19 Final Bicarbonate 09/03/2020 25 22 - 29 mmol/L Final ALT/SGP 09/03/2020 16 <41 U/L Final Anion Gap 09/03/2020 10 8 - 15 mmol/L Final GFR Non 2008 CDK-* 09/03/2020 eGFR is not calculated in patients <18 or >80 years of age. >60 mL/min/1.73m2 Final GFR 2008 CKD-EPI 09/03/2020 eGFR is not calculated in pa tients <18 or >80 years of age. >60 mL/min/1.73m2 Final TSH 09/03/2020 3.160 0.270 - 4.200 u[IU]/mL Final Assessment: The patient is an 85-year-old gentleman, [...] was 90%. He was st arted on pembrolizumab since October 2018. He is status post 29 cycles of Keytru da. The recent CT scans from June 2020 overall showed mild increase in a nodula r lesion in the left upper lobe but after review we did not feel this was signif icant enough to change therapy. We will continue to monitor this and we will pl an his next CAT scan in late September 2020. He continues to tolerate treatment very well with no obvious immune related side effects. We will treat him today with pembrolizumab 200 mg and he will return in 3 weeks for reevaluation. If he is doing well we will plan a total of 2 years of pembrolizumab and then put him on a surveillance schedule. We will plan scans after his next visit. 1. Stage IV Lung cancer. At this present time,we will proceed with cycle #30 of pembrolizumab. 2. Iron deficiency anemia. S/p 1 dose of Injectafer. Recent ferritin from was 15 1. 3. Fatigue/thyroid monitoring while on immunotherapy. TSH from today is 3.16 - i n normal range. 4. Hyponatremia. CMP shows sodium 131. Patient is asymptomatic.No intervention w e will continue to monitor this at his next appt. 5. SOB.Stable since last visit. No further intervention is needed.Patient is on nocturnal oxygen. 6. HTN.Today's BP is in good range. Blood pressure today is 145/69. We will co ntinue to montior BP moving forward 7. Weight loss. Weight has stabilized. We will continue to trend patient weight moving forward. 8. Cholelithiasis and mild gallbladder wall thickening. Patient informs me he h as met with GI and at this point they do not recommend removing his gallbladder. Plan: Pablo Blum should return in 3 weeks Imaging prior to return to clinic?: no, plan for September 2020 Labs on return to clinic? yes,cbc,cmp,tsh Medication changes? no Opioid induced constipation? no Meds reconciled? yes Referrals needed? GI Orders Placed This Encounter CBC and differential Comprehensive metabolic panel TSH Provider Instruction 1 Provider Instruction 2 Nursing Communication pembrolizumab (KEYTRUDA) 200 mg in sodium chloride 0.9 % 50 mL chemo infu alex documented in this encounter Nursing Notes * Krista Henley RN - 09/03/2020 11:45 AM EST TREATMENT ADMINISTRATION NOTE: Pablo Blum presents to infusion for Cycle 30, Day 1, of Keytruda . See Onco logy Nursing Assessment flowsheet for patients assessment.Port initiated w ithout incident. Port flushed easily and blood return was confirmed before, duri ng, and after treatment. Patient tolerated infusion well. Following infusion, Port discontinued per prot ocol. VS stable, and as noted below. Patient encouraged to call with any questio ns or concerns and aware of 24 hour on-call service. AVS provided with next praneeth ointment date and time. Patient discharged home, accompanied by daughter. Visit Vitals BP 145/69 (BP Location: Right arm) Pulse 72 Temp 36.3 C (97.3 F) (Oral) Resp 16 Wt 59.1 kg (130 lb 3.2 oz) SpO2 96% BMI 19.23 kg/m documented in this encounter Plan of Treatment Care Team Description Date Type Specialty Lianet Htafield, ANNETTE [address] [place] [address] [phone] 09/27/2020 Office Visit Hematology and Onco logy Health [...] Area Manufactur er 03/31/2023 [id number] / / [id number] Port- Power P-A-C -10 Fr Dl Lp - Left: Chest STEVE HS [id number] Wall MEDICAL Implanted: Qty: 1 on 10/27/2018 by Zackery Leigh MD at [facility] INPATIENT documented as of this encounter Procedures Comments Procedure Name Priority Date/Time Associated Diag nosis CBC AND DIFFERENTIAL STAT 09/03/2020 Primary a denocarcinoma of 11:03 AM EST right lung TSH Routine 09/03/2020 Primary adenoca rcinoma of 11:03 AM EST right lung COMPREHENSIVE METABOLIC STAT 09/03/2020 Primar y adenocarcinoma of PANEL 11:03 AM EST right lung documented in this encounter Results * TSH (09/03/2020 11:03 AM EST) TSH 3.160 0.270 - 4.200 [facility] u[IU]/mL CLINICAL PATHOLOGY Specimen Plasma Performing Organization Address City[place] Ph one Number [facility] [address], [place] [address] PATHOLOGY * Comprehensive metabolic panel (09/03/2020 11:03 AM EST) Albumin 4.2 3.5 - 5.2 g/dL [facility] CLINICAL PATHOLOGY Bilirubin, 0.6 <1.2 mg/dL [facility] Total CLINICAL PATHOLOGY Calcium 9.1 8.8 - 10.2 mg/dL [facility] CLINICAL PATHOLOGY Chloride 96 (L) 98 - 107 mmol/L [facility] CLINICAL PATHOLOGY Creatinine 0.72 0.70 - 1.20 mg/dL [facility] CLINICAL PATHOLOGY Glucose 81 70 - 140 mg/dL [facility] CLINICAL PATHOLOGY Alkaline 80 40 - 129 U/L [facility] Phosphatase CLINICAL PATHOLOGY Potassium 4.0 3.4 - 5.1 mmol/L [facility] CLINICAL PATHOLOGY Total Protein 6.7 6.4 - 8.3 g/dL [facility] CLINICAL PATHOLOGY Sodium 131 (L) 136 - 145 mmol/L [facility] CLINICAL PATHOLOGY AST/SGO 19 <40 U/L [facility] CLINICAL PATHOLOGY Blood Urea 14 8 - 23 mg/dL [facility] Nitrogen CLINICAL PATHOLOGY Osmolality, Parker 271 (L) 275 - 300 mosm/kg [facility] E CLINICAL PATHOLOGY BUN/Cre Ratio 19 [facility] CLINICAL PATHOLOGY Bicarbonate 25 22 - 29 mmol/L [facility] PATHOLOGY ALT/SGP 16 <41 U/L [facility] PATHOLOGY Anion Gap 10 8 - 15 mmol/L [facility] PATHOLOGY GFR Non eGFR is not calculated in >60 mL/min/1.73m2 [facility] 2009 patients <18 or >80 years of CLINICAL CDK-EPI age. PATHOLOGY GFR eGFR is not calculated in >60 mL/min/1.73m2 [facility] 2008 patients <18 or >80 years of CLINICAL CKD-EPI age. PATHOLOGY Specimen Plasma Performing Organization Address City[place]/[facility] Ph one Number [facility] [address] [place] [id number] PATHOLOGY * CBC and differential (09/03/2020 11:03 AM EST) White Blood 8.6 4 - 10 10*3/uL [facility] Clin Pathology Red Blood Cell 4.10 (L) 4.6 - 6.1 10*6/uL [facility] Clin Pathology Hemoglobin 13.1 (L) 13.5 - 18 g/dL [facility] Clin Pathology Hematocrit 37.2 (L) 41 - 53 % [facility] Clin Pathology Mean Cell 90.7 80 - 96 fL [facility] Volume [facility] Clin Pathology Mean Cell 32.0 27 - 33 pg [facility] Clin Pathology Mean Cell Hgb 35.3 32.0 - 36.0 g/dL [facility] Clin Pathology Red Cell Dist 13.3 11.5 - 14.5 % [facility] Width [facility] Clin Pathology Platelet Count 220 150 - 400 10*3/uL [facility] Clin Pathology Differential Automated Diff [facility] Type [facility] Clin Pathology Neutrophil 76 % [facility] Clin Pathology Lymphocyte 7 % [facility] Clin Pathology Monocyte 9 % [facility] Clin Pathology Eosinophil 7 % [facility] Clin Pathology Basophil 1 % [facility] Clin Pathology Abs Neutrophil 6.53 1.8 - 7.0 10*3/uL [facility] Clin Pathology Abs Lymphocyte 0.58 (L) 1.2 - 4.0 10*3/uL [facility] Clin Pathology Abs Monocyte 0.81 (H) 0 - 0.8 10*3/uL [facility] Clin Pathology Abs Eosinophil 0.60 (H) 0 - 0.5 10*3/uL [facility] Clin Pathology Abs Basophil 0.10 0 - 0.2 10*3/uL [facility] Clin Pathology Nucleated Red 0 0 - 0 /100{WBCs} [facility] Blood Cells [facility] Clin Pathology Specimen EDTA Whole Blood Performing Organization Address City/[facility] Ph one Number [facility] CLINICAL [address], [place] [address] PATHOLOGY [facility] [address], [place] [address] Clin Pathology documented in this encounter Visit Diagnoses Diagnosis Primary adenocarcinoma of right lung - Primary documented in this encounter Administered Medications Action Date Dose Rate Site Medication Order MAR Action 09/03/2020 12:50 PM EST 100 mL/hr pembrolizumab (KEYTRUDA) 200 mg in Rate/Dose sodium chloride 0.9 % 50 mL chemo Verify infusion 200 mg, Intravenous, Administer over 30 Minutes, Once, 09/03/20 at 1215, Fo r 1 dose 200 mg 100 mL/hr New Bag 09/03/2020 12:47 PM EST documented in this encounter
--- OUTSIDE RECORDS SUMMARY | 2020-11-05 16:04 | CCD ---
Author Author [facility] Organization [facility] Address [address] [place] [address] Phone Care Team Providers Care Senior Benefits Analyst Name Role Phone Nandini KIRKLAND, Joshua De La Torre Unavailable Unavailable Jose KIRKLAND, Colt Pedersen Unavailable Unavailable Anival KIRKLAND, Jyoti Valencia Unavailable Unavailable Ankit KIRKLAND, Rody Jamse PP [phone] [facility] Nurse Pract, Nancy Unavailable Unava ilable Marquise KIRKLAND, Bear Unavailable 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 02/09/2018 - 12:00AM Lorrie Mcnulty ANP-BC Active Note: parotid stone surgery Mouth Dryness (Xerostomia) 02/09/2018 - 12:00AM Lorrie Mcnulty ANP-BC Active Osteoporosis 10/06/2017 - 12:00AM Rambo martin MD Active Note: per DEXA 09/04 right f emur neck Aortic Aneurysm 08/18/2017 - 12:00AM Lorrie Mcnulty ANP -BC Active Note: 09/03 measures 3.3 cm Colonic Diverticulosis 08/12/2016 - 12:00AM Lorrie avitia ANP-BC Active Gastritis Bile-induced 02/14/2016 - 12:00AM 08/21/2020 - 1:32PM Norm MATA-C Resolved Note: EGD -, bile gastri tis, was severe gastritis in 2012, restarted Reglan and probiotics in [place] Hyponatremia 02/14/2016 - 12:00AM Lorrie Mcnulty ANP-BC Active Note: sodium is 126 in Intermittent Claudication 02/14/2016 - 12:00AM Lorrie Mcnulty ANP-BC Active Note: dx 02/01, evaluated by Dr. Pagan Neuropathy 02/14/2016 - 12:00AM Lorrie Mcnulty ANP-BC Active Note: of feet associated wit h tingling, and decreased sensation with monofilament testing. in 03/03 Dr. Pagan did not think vascular component Benign Prostatic Hypertrophy 08/16/2015 - :00AM Oj ALMANZAR-BC Active Note: sulcus not preserved, Ischemia Transient 08/16/2015 - :00AM Lorrie Mcnulty ANP-BC Active Note: with numbness left arm /hand, neurology workup, suspicious for TIA, started on aspirin 325mg Diabetes Mellitus Type 2 - Uncomplicated, Controlled B y Diet 08/16/2015 - :00AM Unknown - Unknown Abdi MATA-Madan Resolved Note: A1C 5.1 today Disturbance of Smell Anosmia 08/16/2015 - :00AM Oj ALMANZAR-BC Active Note: dx 12- after viral i llness, saw ENT, Dr Love, CT sinuses and neck was neg, has loss of taste also Esophageal Neoplasm Malignant Carcinoma Squamous Cell 08/16/2015 - 12:00AM Lorrie ALMANZAR-BC Active Note: dx -, with lympha denopathy of abd/periaortic region, rx chemotherapy and radiation 10-26, esophagectomy 12-24, annual PET in December. 5yr dx in 12-02, discharged by Dr Adhikari, now follows with Dr Delatorre, last EGD - Gout 08/16/2015 - 12:00AM 08/21/2020 - 1:33PM Abdi Caldwell Resolved Note: remote, no longer take s allopurinol Hypertension (Systemic) 08/16/2015 - 12:00AM Unknown - Unknown Abdi Mcnulty PA-C Resolved Note: no meds since weight l oss 2008 Osteopenia 08/16/2015 - 12:00AM Lorrie Mcnulty ANP-BC Active Note: DEXA 2014, endocrinolo gy recommended vit D level >50 Large Intestine Neoplasm, Benign - Adenomatous Polyp 08/16/2015 - 12:00AM Lorrie ALMANZAR-BC Active Note: colonoscopy Dr Araceli dave, none in 05/02 Lung Neoplasm Malignant Adenocarcinoma 08/16/2015 - 12:00AM Lorrie ALMANZAR-BC Active Note: incidental finding01-25 , 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 Has stable ground glass opacity lung nodules since 2010, last CT 12-02. 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 in 08-05 with mets to T2 and mediastinal adenopathy Nephrolithiasis 08/16/2015 - 12:00AM Lorrie ALMANZAR -BC Active Note: remote Carotid Artery Stenosis 08/16/2015 - 12:00AM Lorrie martinez ANP-BC Active Note: carotid ultraound-mode rate 16-49% yojana narrowing - Rhinitis 08/16/2015 - 12:00AM 08/21/2020 - 1:33PM Abdi Caldwell Resolved Note: with eating, started A trovent nasal spray in 08-02 Rosacea 08/16/2015 - 12:00AM 08/21/2020 - 1:32PM Abdi Caldwell Resolved Note: uses metronidazole cre am Plan of Treatment Pending Tests Order Diagnosis Results Due Ordering Provi robert Outside Labs CMP Hypo-osmolality and hyponatremia 11/01/19 Abdi Mcnulty PA-C Referral Route 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 1:00PM BENITA Bradford MD Findings Encounter Date Aspirin to be held for 1 week prior to the procedure Pre-op consult for surgery with Abdi Mcnulty PA-C 06/19/2020 The Preoperative History and Physical c ompleted as above. May proceed with the planned procedure. EKG shows right bundle branch block. Caution using medications with cholinergic effects or that may worsen heart block. Patient is having IV sedation, has been evaluated by cardiology as well. Pre-op consult for surgery with Abdi Mcnulty PA-C 06/19/2020 Follow-up visit date 10/25/2019 TCM appointment with Nura Mcnulty [facility] phone call- NO CHARGE with Abdi Mcnulty PA-C 10/21/2019 Transitional care management services with moderate co mplexity decision making [facility] phone call- NO CHARGE with Abdi Mcnulty PA-C 10/21/2019 Visit for: screening for cardiovascular disorders [facility] nnual Wellness SUBSEQUENT visi t(> 1yr since prev. with Lorrie Mcnulty ANP-BC 08/12/2016 Assessments Includes: Assessments for all patient encounters Findings Encounter Date Adenocarcinoma of the lung , currently h aving chemo q 3 weeks until October at which time he'll have a CT and evaluate what is next for him followup with Abdi Mcnulty PA-C 08/21/2020 Benign prostatic hypertrophy , stable flomax/finasteri de followup with Abdi Mcnulty PA-C 08/21/2020 Carotid artery stenosis , following with cardiology fo llowup with Abdi Mcnulty PA-C 08/21/2020 Hyponatremia , is taking 1 gram daily ( he isn't sure exactly how much he is taking as his handles it for him), has been stable around 129-130 followup with Abdi Mcnulty PA-C 08/21/2020 Neuropathy , hands/feet, manages on own followup with Abdi martinez PA-C 08/21/2020 Right bundle branch block , following with cardiology followup with Abdi Mcnulty PA-C 08/21/2020 Routine geriatric history and physical ( 80+ yrs) , follow up in 6 months. Much of his care is in the hands of specialists at this point. He is stable and doing well. Provided ensure shakes for him to help him nutritionally followup with Abdi Mcnulty PA-C 08/21/2020 Salivary secretion disturbance: xerostomia , uses biot in throughout day followup with Abdi Mcnulty PA-C 08/21/2020 Routine geriatric history and physical (80+ yrs) An nual Wellness SUBSEQUENT visi t(> 1yr since prev. with Abdi Mcnulty PA-C 08/21/2020 Tobacco use , quit in 1999, now has lung cancer [facility] Wellness SUBSEQUENT visi t(> 1yr since prev. with Abdi Mcnulty PA-C 08/21/2020 Benign prostatic hypertrophy with obstr uction per Dr. Sanchez's note. EKG performed today as part of pre op. Type of procedure changed so EKG required electrocardiogram with Abdi Mcnulty PA-C 07/12/2020 Right bundle branch block , refer to car diology for evaluation for shortness of breath and ekg abnormalities electrocardiogram with Abdi Mcnulty PA-C 07/12/2020 Benign prostatic hypertrophy with obstr uction per Dr. Sanchez's note. He has been cleared by pulmonology. He has labs q 3 weeks due to his cancer treatments. His labs have been stable Pre-op consult for surgery with Abdi Mcnulty PA-C 06/19/2020 Hyponatremia , most recently sodium was 133 at Oncology. Is still taking 4 sodium tablets daily, no fluid restriction Pre-op consult for surgery with Abdi Mcnulty PA-C 06/19/2020 Working diagnosis of visit for: preopera tive exam , benign prostatic hypertrophy, will be having uro lift Pre-op consult for surgery with Abdi martin PA-C 06/19/2020 Adenocarcinoma of the lung -Recurrence 09/05 bilateral lungs, with metastases to T2 and mediastinum, currently receiving Keytruda every 3 weeks. 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 Will refer to urology for further evaluation and treatment [Benign prostatic hyperplasia with lower urinary tract symptoms] telephone conversation with Rody Pham MD 02/10/2020 Dyspnea In the setting of lung adenocar cinoma and chemotherapy. Will refer to pulmonology for further evaluation and treatment [Shortness of breath] telephone conversation with Rody Pham MD 02/10/2020 Hyponatremia Stable on ensure and 4 mallorie t tabs day [Hypo-osmolality and hyponatremia] telephone conversation with Rody Pham MD 2019 Osteopenia Vitamin D level is 40, prevo iusly tried 1 dose of prolia, was intolerant and reluctant to try other medications. 2018 DEXA shows osteopenia [Other specified disorders of bone density and structure, unspecified site] telephone conversation with Rody Pham MD 02/10/2020 Adenocarcinoma of the lung , is having c hest CT's q 3 months with oncology, next is about a month out. has labs q 3 weeks at oncology as well. Is noting increased shortness of breath over the last several weeks, concerned that his CT may show worsening disease followup with Abdi Mcnulty PA-C 11/29/2019 Hyponatremia , continue ensure, continue 4 salt tabs day. Has been stable for last month with sodium up to 129/130 regularly. Will check cmp again today. Is feeling better. Is also having therapy which has helped with strength. He is scheduled for therapy twice weekly/6 weeks and then he will be re evaluated followup with Abdi Mcnulty PA-C 11/29/2019 Hyponatremia , 2 liters fluid restrictio n with 1 gram salt tabs 3 x day. Will monitor weekly CMP's and adjust fluid restriction/salt tabs accordingly. Would like to keep sodium above 128. Keep follow up with neurologist in 3 months. Will follow up with patient in 1 month to see how he is doing and have weekly labs between now and then. Will alter salt tabs/fluids as needed per labs. If he gets flu like symptoms, i recommend going to the ER. Recommend an ensure a day for nutrition Transitional Care Management HIGH comple xity with Abdi Mcnulty PA-C 10/25/2019 Adenocarcinoma of the lung , on keytruda , currently having treatments q 3 weeks at [facility] and is having a very good experience. Cancer is improving and he is feeling well on treatment followup with Abdi Mcnulty PA-C 08/09/2019 Assessment of xerostomia , uses biotin followup with Abdi avitia PA-C 08/09/2019 Benign prostatic hypertrophy , stable on flomax followup wit h Abdi Mcnulty PA-C 08/09/2019 Bile-induced gastritis , stable with sucralfate followup wit h Abdi MATA-C 08/09/2019 Colonic diverticulosis , stable followup with Abdi MATA- C 08/09/2019 Gout , no recent problems followup with Abdi MATA-C 07/20 Hyponatremia , stable followup with Abdi MATA-C 08/09/20 19 No tobacco use . quit smoking in 1999 Annual Welln ess SUBSEQUENT visi t(> 1yr since prev. with Abdi MATA-C 08/09/2019 Routine senior citizen history and physical (65-80 yrs ) Annual Wellness SUBSEQUENT visi t(> 1yr since prev. with Abdi MATA-C 08/09/2019 Adenocarcinoma of the lung -Recurrence 09/05 bilateral lungs, with metastases to T2 and mediastinum, currently receiving Keytruda every 3 weeks, PET scan was done 2 weeks ago, will retrieve results. Patient is having significant pain over upper thoracic area described as burning, will try gabapentin 100 mg at bedtime, gradually increase by 100mg in 3-5 days increments to see if this will help followup with Lorrie ALMANZAR- 02/08/2019 Aortic aneurysm Was found on Medicare w ellness visit, distal aorta 3.3 cm 09/03 . 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 Delatorre followup with Lorrie LIU 02/08/2019 Carotid artery stenosis -ultrasound 4-1 9, less than 50%, no significant stenosis, unchanged in past 2 years followup with Lorrie ALMANZAR- 02/08/2019 Hyponatremia Sodium level is 123 , this is usual baseline, may be related to cancer diagnosis followup with Lorrie ALMANZAR- 02/08/2019 Neuropathy thought possibly related to chemotherapy or diabetes, has seen in the past, not believed to be vascular in origin followup with Lorrie Darnell [facility] 02/08/2019 Osteopenia Vitamin D level is 40, DEXA worse in 2014, he took 1 dose of prolia, was intolerant and reluctant to try other medications. Will recheck DEXA followup with Lorrie Patrick [facility] 02/08/2019 Salivary secretion disturbance: xerostom ia -usingt biotene dry mouh rinse or sugar free gum which is citrus flavored, followup with Lorrie Darnell [facility] 02/08/2019 Squamous cell carcinoma of the esophagus -Esophagram completed in 12/04 with no evidence of esophagitis or neoplasm, Dr. Delatorre, last balloon dilatation for stricture was 10/03, initial diagnosis 2007 followup with Lorrie Darnell [facility] 02/08/2019 Type 2 diabetes mellitus - uncomplicated , controlled by diet Hemoglobin A1c currently is 6.0- followup with [facility] 02/08/2019 Pulmonary metastases Refer to thoracic surgery for tissue sampling and oncology, Dr. Adhikari, whom patient has followed with in the past [Secondary malignant neoplasm of right lung] sick visit with Rody Pham MD 08/25/2018 Squamous cell carcinoma of the esophagus sick visit with Nancy Pham MD 08/25/2018 Arthralgia of shoulder region s/p fall, obtain x-ray to r/o fracture [Pain in right shoulder] followup with Rody Pham MD 08/13/2018 Cervicalgia s/p fall, obtain x-ray to r /o fracture. Ice, ibuprofen, rest. Refer to PT [Cervicalgia] followup with Rody Pham MD 08/13/2018 Dyspnea Will try ventolin inhaler. Obta in PFT's and CXR. RTC in 4 weeks for follow-up [Shortness of breath] followup with Rody Pham MD 08/13/2018 Presyncope syndrome Advised caution wit h position changes, likely secondary to orthostatic hypotension. Encourage hydration. Will try PT for conditioning [Syncope and collapse] followup with Rody Pham MD 08/13/2018 No tobacco use Annual Wellness SUBSEQUEN T visi t(> 1yr since prev. with Rody Pham MD 08/13/2018 Routine senior citizen history and physi farhan (65-80 yrs) [Encounter for general adult medical examination without abnormal findings] Annual Wellness SUBSEQUENT visi t(> 1yr since prev. with Rody Pham MD 08/13/2018 Adenocarcinoma of the lung Last CT 2013, was negative followup with Lorrie Mcnulty [facility] 02/09/2018 Aortic aneurysm Was found on Medicare w ellness visit, distal aorta 3.3 cm 09/03 . 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 Delatorre, having more diarrhea, consider questran followup with Lorrie Mcnulty [facility] 02/09/2018 Carotid artery stenosis Completed 09/04 , less than 50%, no significant stenosis [facility] Hyponatremia Sodium level is 131 , he d oes not take a diuretic , he does limit water intake, tries to drink tea, Gatorade mixed with water, etc followup with Lorrie Mcnulty [facility] 02/09/2018 Neuropathy thought possibly related to chemotherapy or diabetes, has seen in the past, not believed to be vascular in origin [facility] Osteopenia Vitamin D level is 35, recen t DeXA is worsening, he took 1 dose of proliia, indicates he cannot tolerate it. He was encourages to walk some daily , will try to increase vitamin D to 45-50 followup with Lorrie Mcnulty [facility] 02/09/2018 Salivary secretion disturbance: xerostom ia -start biotene dry mouh rinse or sugar free gum which is citrus flavored, avoid sorbitol products due to diarrhea followup with Lorrie Mcnulty [facility] 02/09/2018 Squamous cell carcinoma of the esophagus -Esophagram completed in 12/04 with no evidence of esophagitis or neoplasm, Dr. Delatorre, last balloon dilatation was 10/03, initial diagnosis 2007 [facility] Type 2 diabetes mellitus - uncomplicated , controlled by diet Hemoglobin A1c currently is 6.3-, he has lost 3 pounds over the past year [facility] Adenocarcinoma of the lung Last CT 2013, was negative followup with Lorrie Patrick [facility] 08/18/2017 Aortic aneurysm Was found on Medicare w ellness visit, 3.3 cm in 09/03 Will repeat [facility] Bile-induced gastritis Patient having m ore symptoms, has seen Dr. Delatorre, barium swallow was done 12/04, no evidence of neoplasm or stenosis followup with Lorrie Patrick [facility] 08/18/2017 Carotid artery stenosis Completed 09/03, no hemodynam ic stenosis-will recheck followup with Lorrie Patrick [facility] 08/18/2017 Hyponatremia Sodium level is 127 , he d oes not take a diuretic , he does limit water intake, tries to drink tea, Gatorade mixed with water, etc followup with Lorrie Darnell [facility] 08/18/2017 Neuropathy Was seen by Dr. Pagan in 02/16 6, did not believe neuropathy had a vascular component, thought possibly related to chemotherapy or diabetes followup with Lorrie Patrick [facility] 08/18/2017 Osteopenia Vitamin D level is 41, has d ecreased from 55, states he recently restarted vitamin D after taking a holiday over the summer , patient is due for DEXA followup with Lorrie Patrick [facility] 08/18/2017 Squamous cell carcinoma of the esophagus -Esophagram completed in 12/04 with no evidence of esophagitis or neoplasm, Dr. Delatorre, last balloon dilatation was 10/03 [facility]2017 Type 2 diabetes mellitus - uncomplicated , controlled by diet Hemoglobin A1c currently is 5.7-, he has lost 3 pounds over the past year followup with Lorrie Patrick [facility] 08/18/2017 No tobacco use Annual Wellness SUBSEQUEN T visi t(> 1yr [facility]. [facility]2017 Routine senior citizen history and physical (65-80 yrs ) Annual Wellness SUBSEQUENT visi t(> 1yr since [facility]. [facility]2017 Benign prostatic hypertrophy With lower tract symptom s followup with Rambo Macario MD 02/10/2017 Carotid artery stenosis which is stable followup with Rambo Macario MD 02/10/2017 Hyponatremia which is improving followup with Rambo Macario MD 02/10/2017 Neuropathy which is stable followup with Rambo corey MD 02/10/2017 Type 2 diabetes mellitus - uncomplicated, controlled b y diet followup with Rambo Macario MD 02/10/2017 Adenocarcinoma of the lung Last CT 2013, was negative followup with Lorrie Mcnulty [facility] 08/12/2016 Bile-induced gastritis Patient having m ore symptoms, has seen Dr. Delatorre, barium swallow was done, will retrieve that report followup with Lorrie Mcnulty [facility] 08/12/2016 Carotid artery stenosis I'm unable to find report sin ce 2012, will research followup with Lorrie Mcnulty [facility] 08/12/2016 Hyponatremia Sodium level has improved to 131, he does limit water intake, tries to drink tea, Gatorade mixed with water, etc [facility]2016 Neuropathy Was seen by Dr. Pagan in 02/16 6, did not believe neuropathy had a vascular component, thought possibly related to chemotherapy or diabetes [facility]/12/2016 Osteopenia Vitamin D level is 55, recommendation was to be greater than 50 [facility]2016 Squamous cell carcinoma of the esophagus -Esophagram completed in 12/04 with no evidence of esophagitis or neoplasm, Dr. Delatorer followup with Lorrie Mcnulty [facility] 08/12/2016 Type 2 diabetes mellitus - uncomplicated, controlled b y diet followup with Lorrie Mcnulty [facility] 08/12/2016 No tobacco use Annual Wellness SUBSEQUEN T visi t(> 1yr since prev. with Lorrie Mcnulty [facility] 08/12/2016 Routine senior citizen history and physical (65-80 yrs ) Annual Wellness SUBSEQUENT visi t(> 1yr since prev. with Lorrie Mcnulty [facility] 08/12/2016 Otitis externa of the left ear sick visit with Jenny braxton 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 Symptoms have improved, not certain he is taking carafate as suggested followup with [facility] 02/14/2016 Carotid artery stenosis last carotid ul trasound was in 2012 with 16-49% stenosis, slight increase since 2005, had neurology workup for TIA symptoms 2012, now on aspirin 325 mg followup with [facility] 02/14/2016 Hyponatremia Na+ level is 126 today, un certain of cause. will limit water intake to 1000 cc per day, other fluids should be gatorade, tea, juice of soda, recheck BMP, obtain urine osmolality.urine sodium and chloride levels, TSH and free T4 in 1 week followup with [facility] 02/14/2016 Intermittent claudication and tingling of feet developed over winter months, will refer to Dr Nogueira followup with [facility] 02/14/2016 Neuropathy -is worsening, will start ga bapentin at 100mg daily and increase depending on improvement of symptom followup with [facility] 02/14/2016 Osteopenia vitamin D level is now at 55 , last DEXA 09/02, is walking more with warm weather followup with [facility] 02/14/2016 Squamous cell carcinoma of the esophagus -has passed 5yr survival, now follows with Dr Delatorre, plans next EGD in 2019 unless symptoms followup with [facility] 02/14/2016 Type 2 diabetes mellitus - uncomplicated, controlled b y diet -HAI is 6.1 followup with [facility] 02/14/2016 Anosmia -continues to take zinc which h as not really helped this symptom which was first noted in 2010, may stop new patient with Lorrie [facility] 08/16/2015 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 Having increased difficulty with balance after taking Reglan, and will discontinue Reglan for now. He developed increased GI symptoms after Reglan stopped in 2012, monitor closely, pt to call if symptoms worsen [facility] 08/16/2015 Hypertension -well controlled without meds since weig ht loss in 2007 new patient [facility] 08/16/2015 Normal routine history and physical adonis or citizen (65-80) -new patient to this office [not annual appointment] [facility] 08/16/2015 Osteopenia -increased osteopenia in 201 3, will recheck DEXA and vitamin D level [facility] 08/16/2015 Rhinitis is profuse and occurs with eating, will try atrovent nasal spray [facility] 08/16/2015 Squamous cell carcinoma of the esophagus -no longer follows with Dr Adhikari in [place] after 5 yr survival [2-14], last seen in fall 2013 new patient with Lorrie Mcnulty [facility] 08/16/2015 Type 2 diabetes mellitus - uncomplicated , 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 [facility] 08/16/2015 Instructions Instructions not supported for this document typeNo Instructions Recorded Medical Equipment - Implanted Devices Includes: Current and historical DevicesNo Medical Equipment Recorded Medications Includes: Current and historical Medications Current Medications (continue as prescribed) levETIRAcetam 500 MG Oral Tablet 07/04/2020 - 12/31/2020 Pro vider: Abdi Mcnulty PA-C Diagnosis: TAKE 1 TABLET BY MOUTH TWICE A DAY Famotidine 40 MG Oral Tablet 06/19/2020 Provider: Abdi Mcnulty PA-C Diagnosis: One PO qhs Sodium Chloride 1 GM Oral Tablet 04/02/2020 Provide r: Abdi Mcnulty PA-C Diagnosis: Hypo-osmolality and hyponatremia 4 PO QD Flonase Allergy Relief 50 MCG/ACT Nasal Suspension 0 Provider: bAdi Mcnulty PA-C Diagnosis: 1 spray each nares qd Gabapentin 100 MG Oral Capsule 02/10/2020 Provider: Rody Pham MD Diagnosis: 2 tabs daily. Loratadine 10 MG Oral Tablet 01/20/2020 Provider: Abdi Mcnulty PA-C Diagnosis: 1 PO QD Finasteride 5 MG Oral Tablet 12/06/2019 - 11/30/2020 Provide r: Abdi Mcnulty PA-C Diagnosis: 1 PO QD Flomax 0.4 MG Oral Capsule 11/29/2019 Provider: Abdi Mcnulty PA-C Diagnosis: 1 PO BID Sucralfate 1GM Oral Tablet 09/09/2019 - 09/03/2020 Provider: Abdi Mcnulty PA-C Diagnosis: Gastritis, unspecifi ed, without bleeding 1 tab before meals Keytruda 100MG/4ML Intravenous Solution 02/08/2019 Provider: Lorrie Mcnulty ANP-BC Diagnosis: given in oncology unit every 3 weeks [facility] Vitamin D 2000 UNIT Capsule, conventional 08/17/2015 Provider: Diagnosis: 1 tab twice daily Past Medications on file Flonase Allergy Relief 50 MCG/ACT Nasal Suspension 0 - 11/29/2019 Provider: Rody Pham MD Diagnosis: 1 spray each nares qd Flonase Allergy Relief 50 MCG/ACT Nasal Suspension 0 - 02/10/2020 Provider: Abdi Mcnulty PA-C Diagnosis: 1 spray each nares qd levETIRAcetam 500 MG Oral Tablet 12/20/2019 - 07/04/2020 Pro vider: Abdi Mcnulty PA-C Diagnosis: 1 PO BID Sodium Chloride 1 GM Oral Tablet 11/29/2019 - 11/29/2019 Pro vider: Abdi Mcnulty PA-C Diagnosis: Hypo-osmolality and hyponatremia 4 PO QD Sodium Chloride 1 GM Oral Tablet 11/15/2019 - 11/29/2019 Pro vider: Abdi Mcnulty PA-C Diagnosis: Hypo-osmolality and hyponatremia 4 PO QD levETIRAcetam 500 MG Oral Tablet 11/10/2019 - 11/29/2019 Pro vider: Abdi Mcnulty PA-C Diagnosis: 1 PO BID Tamiflu 75 MG Oral Capsule 10/25/2019 - 11/08/2019 Provider: Abdi Mcnulty PA-C Diagnosis: Take 1 capsule daily for 14 days Sodium Chloride 1 GM Oral Tablet 10/25/2019 - 10/25/2019 Pro vider: Abdi Mcnulty PA-C Diagnosis: Hypo-osmolality and hyponatremia one tablet 3 x day Loratadine 10MG Oral Tablet 08/17/2019 - 11/29/2019 Provider : Abdi Mcnulty PA-C Diagnosis: 1 PO QD Ventolin HFA 108 (90 Base)MCG/ACT Inhalation Aerosol S olution 08/01/2019 - 11/29/2019 Provider: Rody Pham MD Diagnosis: 1 every 4 - 6 hours as needed Flomax 0.4MG Oral Capsule 07/04/2019 - 11/29/2019 Provider: Rambo Macario MD Diagnosis: 1 PO BID Ventolin HFA 108 (90 Base)MCG/ACT Inhalation Aerosol S olution 05/23/2019 - 02/08/2019 Provider: Rody Pham MD Diagnosis: 1 every 4 - 6 hours as needed Gabapentin 100MG Oral Capsule 03/08/2019 - 02/10/2020 Provid er: Abdi Mcnulty PA-C Diagnosis: 2 tabs daily. After 5 days if needed increase to 2 in the am and 1 at bedtime Finasteride 5MG Oral Tablet 02/08/2019 - 11/29/2019 Provider : Lorrie Mcnulty ANP-BC Diagnosis: 1 PO QD Zantac 150MG Oral Tablet 02/08/2019 - 08/09/2019 Provider: Lorrie Mcnulty ANP-BC Diagnosis: 1 tab twice daily as needed Gabapentin 100MG Oral Capsule 02/08/2019 - 02/08/2019 Provid er: Lorrie Mcnulty ANP-BC Diagnosis: 1 tab at bedtime for 3 days, then increa se to 2 tabs daily. After 5 days if needed increase to 2 in the am and 1 at bedtime Loratadine 10MG Oral Tablet 02/08/2019 - 08/09/2019 Provider : Lorrie Mcnulty ANP-BC Diagnosis: 1 PO QD Flonase Allergy Relief 50MCG/ACT Nasal Suspension 11/17/2018 - 11/29/2019 Provider: Rody Pham MD Diagnosis: 1 spray each nares qd Sucralfate 1GM Oral Tablet 08/19/2018 - 08/09/2019 Provider: Rody Pham MD Diagnosis: Gastritis, unspecifi ed, without bleeding 1 tab before meals Ventolin HFA 108 (90 Base)MCG/ACT Inhalation Aerosol S olution 08/13/2018 - 08/25/2018 Provider: Rody Pham MD Diagnosis: 1 every 4 - 6 hours as needed Flonase Allergy Relief 50MCG/ACT Nasal Suspension 08/13/2018 - 08/25/2018 Provider: Rody Pham MD Diagnosis: 1 spray each nares qd Flomax 0.4MG Oral Capsule 06/08/2018 - 02/08/2019 Provider: Rambo Macario MD Diagnosis: 1 PO BID Loratadine 10MG Oral Tablet 02/23/2018 - 02/08/2019 Provider : Diagnosis: Omeprazole 40MG Oral Capsule Delayed Release 02/09/2018 - Provider: Lorrie Mcnulty ANP-BC Diagnosis: 1 tab once daily Finasteride 5MG Oral Tablet 02/09/2018 - 02/08/2019 Provider : Lorrie Mcnulty ANP-BC Diagnosis: 1 PO QD Finasteride 5MG Oral Tablet 02/08/2018 - 02/09/2018 Provider : Rambo Macario MD Diagnosis: 1 PO QD Prolia 60MG/ML Subcutaneous Solution 10/06/2017 - 02/09/2018 Provider: Lorrie Mcnulty ANP-BC Diagnosis: injection q6 months, started 10-06-17 Sucralfate 1GM Oral Tablet 08/18/2017 - 08/13/2018 Provider: Lorrie Mcnulty ANP-BC Diagnosis: Gastritis, unspecifi ed, without bleeding 1 tab before meals Metoclopramide HCl 10MG Oral Tablet 08/18/2017 - 02/09/2018 Provider: Lorrie Mcnulty ANP-BC Diagnosis: Other specified dise ases of esophagus Take 1 tab before each meal as needed Finasteride 5 MG Tablet 02/10/2017 - 10/06/2017 Provider: Rambo Macario MD Diagnosis: 1 PO QD Flomax 0.4 MG Capsule 02/10/2017 - 10/06/2017 Provider: Rambo Macario MD Diagnosis: 1 PO BID Sucralfate 1 GM Tablet 09/08/2016 - 08/18/2017 [facility]: [facility] Diagnosis: 1 tab before meals Omeprazole 40 MG Capsule Delayed Release 08/12/2016 - 2017 [facility] Diagnosis: Other specified dise ases of esophagus Take 1 tab before evening meal Aspirin 325 MG Tablet 08/12/2016 - 08/09/2019 [facility] Diagnosis: 1 PO QD Gabapentin 100 MG Capsule 08/12/2016 - 08/18/2017 Provider: Lorrie Mcnulty [facility] Diagnosis: Other specified poly neuropathies 1 tab at bedtime for 3 days then increas e to 1 tab every 12 hrs, in 7 d continued sx increase 1 tab 3 times a day Carafate 1 GM Tablet 08/12/2016 - 09/08/2016 Provider: [facility] Diagnosis: 1 tab before meals Metoclopramide HCl 10 MG Tablet 08/12/2016 - 08/18/2017 Prov ider: Lorrie Mcnulty [facility] Diagnosis: Other specified dise ases of esophagus Take 1 tab before each meal Carafate 1 GM Tablet 02/15/2016 - 08/12/2016 [facility] Diagnosis: [address] Delatorre Gabapentin 100 MG Capsule 02/14/2016 - 08/12/2016 Provider: [facility] Diagnosis: 1 tab at bedtime for 3 days then increas e to 1 tab every 12 hrs, in 7 d continued sx increase 1 tab 3 times a day Flomax 0.4 MG Capsule 02/14/2016 - 02/10/2017 Provider: Lorrie Mcnulty [facility] Diagnosis: 1 tab twice daily [facility] Zinc 50 MG Tablet 08/17/2015 - 08/12/2016 Provider: Diagnosis: Magnesium 400 MG Capsule, conventional 08/17/2015 - 08/12/20 16 Provider: Diagnosis: for leg cramps EQ Complete Multivitamin-Adult Tablet 08/17/2015 - 8 Provider: Diagnosis: Aspirin 81 MG Tablet 08/17/2015 - 08/12/2016 Provider: Diagnosis: Reglan 10 MG Tablet 08/16/2015 - 08/12/2016 Provider: Lorrie Mcnulty ANP- Diagnosis: Take 1 tab before each meal and at bedtime Omeprazole 40 MG Capsule, delayed-release 08/16/2015 - 08/12 Provider: Lorrie Mcnulty ANP-BC Diagnosis: Take 1 tab before evening meal Flomax 0.4 MG Capsule, conventional 08/16/2015 - 02/14/2016 Provider: Lorrie Mcnulty ANP-BC Diagnosis: 1 tab twice daily Atrovent 0.03 % Solution 08/16/2015 - 08/12/2016 Provider: Lorrie Mcnulty ANP-BC Diagnosis: instill 2 sprays each nostril once daily Medications Administered Includes: Administered Medications in patient's chartNo Administered Medications Recorded Vital Signs Includes: Vital Signs from 08/22/2019 through 08/22/2020 Vital Name 08/21/2020 12:57P 08/21/2020 12:56P 06/19/2020 11:03A 02/10/2020 03:40P 11/29/2019 12:32P Blood Pressure Sitting R 158/74 158/74 BP Cuff Size Regular Regular Pulse Rate-Sitting (bpm) 80 80 74 71 72 Respiration Rate (breaths/min) 20 20 24 24 Height (in) 65.75 65.75 65.75 65.75 65.75 Weight (lb) 133.25 133.25 135 129 Body Mass Index (kg/m2) 21.7 21.7 22.0 2 1.0 Body Surface Area (m2) 1.68 1.68 1.69 1. 66 Blood Pressure Sitting (mmHg) 136/60 141/76 152/70 Vital Name 10/25/2019 12:28P BP Cuff Size Regular Pulse Rate-Sitting (bpm) 80 Respiration Rate (breaths/min) 20 Height (in) 65.75 Weight (lb) 127 Body Mass Index (kg/m2) 20.7 Body Surface Area (m2) 1.64 Blood Pressure Sitting L 126/68 Results Includes: Results from 08/22/2019 through 08/22/2020 CORONAVIRUS COVID-19 [facility] Ordered by Abdi Mcnulty PA-C on 05/07/2020 Collected: 05/07/2020 Reported: 05/09/2020 14:09 SARS-CoV-2, MELODIE Not Detected (Not Detected) None Note: This test was developed and its pe rformance characteristics determinedby [employer]. This test has not been FDA cleared orapproved. This test has been authorized by FDA under an Emergency UseAuthorization (EUA). This test is only authorized for the duration oftime the declaration that circumstances exist justifying theauthorization of the emergency use of in vitro diagnostic tests fordetection of SARS-CoV-2 virus and/or diagnosis of COVID-19 infectionunder section 564(b)(1) of the Act, 21 U.S.C. 360bbb-3(b)(1), unlessthe authorization is terminated or revoked sooner.When diagnostic testing is negative, the possibility of a falsenegative result should be considered in the context of a patient'srecent exposures and the presence of clinical signs and symptomsconsistent with COVID-19. An individual without symptoms of COVID-19and who is not shedding SARS-CoV-2 virus would expect to have anegative (not detected) result in this assay.Responsible Observer: (rfl) Reviewed by Abdi Mcnulty PA-C on 0; All test results are final unless otherwise noted. Reported Physicians [facility] Ordered by Abdi Mcnulty PA-C on 05/07/2020 Collected: 05/07/2020 Reported: 05/09/2020 14:09 Reported Physicians See Note None Note: Reported Physicians:Ordering: HELIO JOVELAttending: MAURA GLASSonsulting: Mariama PHAM To: Helio Glass Reviewed by Abdi Mcnulty PA-C on 0; All test results are final unless otherwise noted. [facility] Ordered by Abdi Mcnulty PA-C on 11/29/2019 [id number] [place], [address] Collected: 11/29/2019 Reported: 11/29/2019 15:53 tel : ext. [phone] Albumin 4 g/dl (3.4-5.0) None Note: Responsible Observer: AW Alkaline Phos 86 IU/L (39-117) None Note: Responsible Observer: AW ALT 10 IU/L (4-40) None Note: Responsible Observer: AW AST 13 IU/L (4-37) None Note: Responsible Observer: AW Urea Nitrogen 12 mg/dl (6-20) None Note: Responsible Observer: AW Calcium 9.1 mg/dl (8.4-10.2) None Note: Responsible Observer: AW Chloride 95 mmol/L (96-108) L (Low) Note: Responsible Observer: AW CO2 25 mmol/L (23-31) None Note: Responsible Observer: AW Creatinine 0.6 mg/dl (0.5-1.2) None Note: Responsible Observer: AW EGFR - AfricanAm > 60 N/A (-) None Note: Responsible Observer: AW EGFR - Non AF AM > 60 N/A (-) None Note: Responsible Observer: AW Glucose 95 mg/dl (70-105) None Note: Responsible Observer: AW Potassium 3.5 mmol/L (3.2-5.4) None Note: Responsible Observer: AW Sodium 129 mmol/L (133-145) L (Low) Note: Responsible Observer: AW Total Bilirubin 0.5 mg/dl (0.0-1.2) None Note: Responsible Observer: AW Total Protein 5.7 g/dl (6.0-8.0) L (Low) Note: Responsible Observer: AW Reviewed on 11/30/2019; All test result s are final unless otherwise noted. CBC W/AUTOMATED DIFF [facility] Ordered by Rody Pham MD on 10/19/2019 Collected: 10/19/2019 Reported: 10/19/2019 07:26 #BASO 0.05 10\^3/uL (0.00 - 0.20) None Note: Responsible Observer: (CM) #EOS 0.30 10\^3/uL (0.00 - 0.70) None Note: Responsible Observer: (CM) #IG 0.06 10\^3/uL (0.00 - 0.10) None Note: Responsible Observer: (CM) #LYMPH 0.56 10\^3/uL (0.60 - 3.40) L (Low) Note: Responsible Observer: (CM) #MONO 0.76 10\^3/uL (0.00 - 0.90) None Note: Responsible Observer: (CM) #NEUT 6.01 10\^3/uL (2.00 - 6.90) None Note: Responsible Observer: (CM) #NRBC 0.00 10\^3/uL (0.00 - 0.00) None Note: Responsible Observer: (CM) %IG 0.8 % (0.0 - 0.0) H (High) Note: Responsible Observer: (CM) %NRBC 0.0 % (0.0 - 0.0) None Note: Responsible Observer: (CM) BASO 0.6 % (0.0 - 2.0) None Note: Responsible Observer: (CM) CBC W/AUTOMATED DIFF See Note None Note: COMPLETE BLOOD COUNTResponsibl e Observer: (CM) EOS 3.9 % (0.0 - 7.0) None Note: Responsible Observer: (CM) HEMATOCRIT 30.4 % (41.0 - 51.0) L (Low) Note: Responsible Observer: (CM) HEMOGLOBIN 10.3 g/dL (14.0 - 16.0) L (Low) Note: Responsible Observer: (CM) LYMPH 7.2 % (25.0 - 40.0) L (Low) Note: Responsible Observer: (CM) MANUAL DIFF NOT INDICATED None Note: Responsible Observer: (CM) MCH 31.5 pg (27.0 - 34.0) None Note: Responsible Observer: (CM) MCHC 33.9 g/dL (31.0 - 36.0) None Note: Responsible Observer: (CM) MCV 93.0 fL (80.0 - 94.0) None Note: Responsible Observer: (CM) MONO 9.8 % (3.0 - 8.0) H (High) Note: Responsible Observer: (CM) MPV 8.3 fL (7.4 - 10.4) None Note: Responsible Observer: (CM) NEUT 77.7 % (37.0 - 80.0) None Note: Responsible Observer: (CM) PLATELETS 311 10\^3/uL (150 - 450) None Note: Responsible Observer: (CM) RBC 3.27 10\^6/uL (4.50 - 6.30) L (Low) Note: Responsible Observer: (CM) RBC MORPH NOT INDICATED None Note: Responsible Observer: (CM) RDW 14.2 % (11.5 - 14.8) None Note: Responsible Observer: (CM) WBC 7.7 10\^3/uL (4.2 - 11.0) None Note: Responsible Observer: (CM) Reviewed by Rody Pham MD on 10/24; All test results are final unless otherwise noted. Reported Physicians [facility] Ordered by Rody Pham MD on 10/19/2019 Collected: 10/19/2019 Reported: 10/19/2019 07:26 Reported Physicians See Note None Note: Reported Physicians:Ordering: EVELYN STONE AAttending: VINCENT ISSAConsulting: Mariama PHAM To: Evelyn XavierCopladarius To: VINCENT ISSA Reviewed by Rody Pham MD on 10/24; All test results are final unless otherwise noted. BASIC METABOLIC PANEL [facility] Ordered by Rody Pham MD on 10/19/2019 Collected: 10/19/2019 Reported: 10/19/2019 07:57 AFR AMER GFR >60 mL/min None Note: Responsible Observer: (CM) AGE 84 yrs None Note: Responsible Observer: (CM) ANION GAP 10.0 mmol/L (8.0 - 16.0) None Note: Responsible Observer: (CM) BASIC METABOLIC PANEL See Note None Note: BASIC METABOLIC PANELResponsib le Observer: (CM) BUN 9 MG/DL (7 - 21) None Note: Responsible Observer: (CM) BUN/CREAT 11 (8 - 27) None Note: Responsible Observer: (CM) CALCIUM 9.0 MG/DL (8.4 - 10.2) None Note: Responsible Observer: (CM) CHLORIDE 97 mEq/L (98 - 107) L (Low) Note: Responsible Observer: (CM) CO2 27 MEQ/L (22 - 30) None Note: Responsible Observer: (CM) CREATININE 0.8 MG/DL (0.7 - 1.5) None Note: Responsible Observer: (CM) GLUCOSE 114 MG/DL (65 - 110) H (High) Note: Responsible Observer: (CM) NON-AA GFR >60 mL/min None Note: Male GFR Interprentation 20-49 yrs >60 mL/min Normal 50-59 yrs >56 mL/min Normal 60-69 yrs >49 mL/min Normal 70-79yrs >42 mL/min Normal 80 and above >35 mL/min Normal Female GFR Interpretation 20-39 yrs >60 mL/min Normal 40-49 yrs >58 mL/min Normal 50-59 yrs >51 mL/min Normal 60-69 yrs >45 mL/min Normal 70-79 yrs >39 mL/min Normal 80 and above >32 mL/min NormalResponsible Observer: (CM) POTASSIUM 3.9 mEq/L (3.6 - 5.0) None Note: Responsible Observer: (CM) SODIUM 134 mEq/L (134 - 153) None Note: Responsible Observer: (SHON) Reviewed by Rody Pham MD on 10/24; All test results are final unless otherwise noted. Reported Physicians [facility] Ordered by Rody Pham MD on 10/19/2019 Collected: 10/19/2019 Reported: 10/19/2019 07:57 Reported Physicians See Note None Note: Reported Physicians:Ordering: EVELYN STONE AAttending: VINCENT ISSAConsulting: Mariama PHAM To: Tong Xavier To: VINCENT ISSA Reviewed by Rody Pham MD on 10/24; All test results are final unless otherwise noted. COMPREHENSIVE METABOLIC PANEL [facility] Ordered by Jenny Brown RPA on 10/18/2019 Collected: 10/18/2019 Reported: 10/18/2019 11:58 A/G RATIO 1.8 (0.8 - 2.0) None Note: Responsible Observer: DEE DEE) AFR AMER GFR >60 mL/min None Note: Male GFR Interprentation 20- 49 yrs >60 mL/min Normal 50-59 yrs >56 mL/min Normal 60-69 yrs >49 mL/min Normal 70-79yrs >42 mL/min Normal 80 and above >35 mL/min Normal Female GFR Interpretation 20-39 yrs >60 mL/min Normal 40-49 yrs >58 mL/min Normal 50-59 yrs >51 mL/min Normal 60-69 yrs >45 mL/min Normal 70-79 yrs >39 mL/min Normal 80 and above >32 mL/min NormalResponsible Observer: DEE DEE) AGE 84 yrs None Note: Responsible Observer: DEE DEE) ALBUMIN 4.2 G/DL (3.9 - 5.0) None Note: Responsible Observer: DEE DEE) ALKALINE PHOS 112 U/L (38 - 126) None Note: Responsible Observer: DEE DEE) ANION GAP 13.0 mmol/L (8.0 - 16.0) None Note: Responsible Observer: (MD) BUN 10 MG/DL (7 - 21) None Note: Responsible Observer: (MD) BUN/CREAT 13 (8 - 27) None Note: Responsible Observer: (MD) CALCIUM 9.3 MG/DL (8.4 - 10.2) None Note: Responsible Observer: (MD) CHLORIDE 95 mEq/L (98 - 107) L (Low) Note: Responsible Observer: (MD) CO2 24 MEQ/L (22 - 30) None Note: Responsible Observer: () COMPREHENSIVE METABOLIC PANEL See Note None Note: COMPREHENSIVE METABOLIC PANELR esponsible Observer: (MD) CREATININE 0.8 MG/DL (0.7 - 1.5) None Note: Responsible Observer: (MD) GLOBULIN 2.3 GM/DL (2.4 - 3.2) L (Low) Note: Responsible Observer: (MD) GLUCOSE 165 MG/DL (65 - 110) H (High) Note: Responsible Observer: (MD) NON-AA GFR >60 mL/min None Note: Responsible Observer: (MD) POTASSIUM 4.0 mEq/L (3.6 - 5.0) None Note: Responsible Observer: (MD) SGOT/AST 14 U/L (5 - 40) None Note: Responsible Observer: (MD) SGPT/ALT 11 U/L (7 - 56) None Note: Responsible Observer: (MD) SODIUM 132 mEq/L (134 - 153) L (Low) Note: Responsible Observer: (MD) TOTAL BILI <0.7 MG/DL (0.2 - 1.3) None Note: Responsible Observer: () TOTAL PROTEIN 6.5 G/DL (6.3 - 8.2) None Note: Responsible Observer: () Reviewed by Jenny Brown RPA on 10/21; All test results are final unless otherwise noted. Reported Physicians [facility] Ordered by Jenny Brown RPA on 10/18/2019 Collected: 10/18/2019 Reported: 10/18/2019 11:59 Reported Physicians See Note None Note: Reported Physicians:Ordering: DK HANNONding: VINCENT ISSAConsulting: SEBASTIÁN PHAMYNCopladarius To: Alanis CABRERA To: VINCENT ISSA Reviewed by Jenny Brown RPA on 10/21; All test results are final unless otherwise noted. CBC NO DIFF [facility] Ordered by [facility] on 10/18/2019 Collected: 10/18/2019 Reported: 10/18/2019 10:30 CBC NO DIFF See Note None Note: COMPLETE BLOOD COUNTResponsibl e Observer: (BLD) HEMATOCRIT 31.7 % (41.0 - 51.0) L (Low) Note: Responsible Observer: (BLD) HEMOGLOBIN 11.0 g/dL (14.0 - 16.0) L (Low) Note: Responsible Observer: (BLD) MCH 31.9 pg (27.0 - 34.0) None Note: Responsible Observer: (BLD) MCHC 34.7 g/dL (31.0 - 36.0) None Note: Responsible Observer: (BLD) MCV 91.9 fL (80.0 - 94.0) None Note: Responsible Observer: (BLD) MPV 8.0 fL (7.4 - 10.4) None Note: Responsible Observer: (BLD) PLATELETS 321 10\^3/uL (150 - 450) None Note: Responsible Observer: (BLD) RBC 3.45 10\^6/uL (4.50 - 6.30) L (Low) Note: Responsible Observer: (BLD) RDW 14.2 % (11.5 - 14.8) None Note: Responsible Observer: (BLD) WBC 9.5 10\^3/uL (4.2 - 11.0) None Note: Responsible Observer: (BLD) Reviewed by Jenny Brown [facility] on 10/21; All test results are final unless otherwise noted. Reported Physicians [facility] Ordered by [facility] on 10/18/2019 Collected: 10/18/2019 Reported: 10/18/2019 10:30 Reported Physicians See Note None Note: Reported Physicians:Ordering: DK HANNON: VINCENT ISSAConsulting: Mariama PHAM To: Alanis CABRERA To: VINCENT ISSA Reviewed by Jenny Brown RPA on 10/21; All test results are final unless otherwise noted. BASIC METABOLIC PANEL [facility] Ordered by Jenny Brown RPA on 10/17/2019 Collected: 10/17/2019 Reported: 10/17/2019 08:45 AFR AMER GFR >60 mL/min None Note: Responsible Observer: DEE DEE) AGE 84 yrs None Note: Responsible Observer: DEE DEE) ANION GAP 12.0 mmol/L (8.0 - 16.0) None Note: Responsible Observer: () BASIC METABOLIC PANEL See Note None Note: BASIC METABOLIC PANELResponsib le Observer: DEE DEE) BUN 8 MG/DL (7 - 21) None Note: Responsible Observer: DEE DEE) BUN/CREAT 11 (8 - 27) None Note: Responsible Observer: () CALCIUM 9.3 MG/DL (8.4 - 10.2) None Note: Responsible Observer: DEE DEE) CHLORIDE 92 mEq/L (98 - 107) L (Low) Note: Responsible Observer: DEE DEE) CO2 28 MEQ/L (22 - 30) None Note: Responsible Observer: DEE DEE) CREATININE 0.7 MG/DL (0.7 - 1.5) None Note: Responsible Observer: DEE DEE) GLUCOSE 128 MG/DL (65 - 110) H (High) Note: Responsible Observer: () NON-AA GFR >60 mL/min None Note: Male GFR Interprentation 20-49 yrs >60 mL/min Normal 50-59 yrs >56 mL/min Normal 60-69 yrs >49 mL/min Normal 70-79yrs >42 mL/min Normal 80 and above >35 mL/min Normal Female GFR Interpretation 20-39 yrs >60 mL/min Normal 40-49 yrs >58 mL/min Normal 50-59 yrs >51 mL/min Normal 60-69 yrs >45 mL/min Normal 70-79 yrs >39 mL/min Normal 80 and above >32 mL/min NormalResponsible Observer: () POTASSIUM 3.8 mEq/L (3.6 - 5.0) None Note: Responsible Observer: DEE DEE) SODIUM 132 mEq/L (134 - 153) L (Low) Note: Responsible Observer: DEE DEE) Reviewed by Jenny Brown RPA on 10/17; All test results are final unless otherwise noted. Reported Physicians [facility] Ordered by Jenny Brown RPA on 10/17/2019 Collected: 10/17/2019 Reported: 10/17/2019 08:45 Reported Physicians See Note None Note: Reported Physicians:Ordering: EVELYN STONE AAttending: VINCENT ISSAConsulting: RODY PHAMCopladarius To: Tong Xavier To: VINCENT ISSA Reviewed by Jenny Brown RPA on 10/17; All test results are final unless otherwise noted. COMPREHENSIVE METABOLIC PANEL [facility] Ordered by Rody Pham MD on 10/14/2019 Collected: 10/14/2019 Reported: 10/14/2019 06:52 A/G RATIO 1.8 (0.8 - 2.0) None Note: Responsible Observer: (CM) AFR AMER GFR >60 mL/min None Note: Male GFR Interprentation 20- 49 yrs >60 mL/min Normal 50-59 yrs >56 mL/min Normal 60-69 yrs >49 mL/min Normal 70-79yrs >42 mL/min Normal 80 and above >35 mL/min Normal Female GFR Interpretation 20-39 yrs >60 mL/min Normal 40-49 yrs >58 mL/min Normal 50-59 yrs >51 mL/min Normal 60-69 yrs >45 mL/min Normal 70-79 yrs >39 mL/min Normal 80 and above >32 mL/min NormalResponsible Observer: (CM) AGE 84 yrs None Note: Responsible Observer: (CM) ALBUMIN 3.6 G/DL (3.9 - 5.0) L (Low) Note: Responsible Observer: (CM) ALKALINE PHOS 98 U/L (38 - 126) None Note: Responsible Observer: (CM) ANION GAP 11.0 mmol/L (8.0 - 16.0) None Note: Responsible Observer: (CM) BUN 5 MG/DL (7 - 21) L (Low) Note: Responsible Observer: (CM) BUN/CREAT 7 (8 - 27) L (Low) Note: Responsible Observer: (CM) CALCIUM 8.8 MG/DL (8.4 - 10.2) None Note: Responsible Observer: (CM) CHLORIDE 92 mEq/L (98 - 107) L (Low) Note: Responsible Observer: (CM) CO2 26 MEQ/L (22 - 30) None Note: Responsible Observer: (CM) COMPREHENSIVE METABOLIC PANEL See Note None Note: COMPREHENSIVE METABOLIC PANELR esponsible Observer: (CM) CREATININE 0.7 MG/DL (0.7 - 1.5) None Note: Responsible Observer: (CM) GLOBULIN 2.0 GM/DL (2.4 - 3.2) L (Low) Note: Responsible Observer: (CM) GLUCOSE 117 MG/DL (65 - 110) H (High) Note: Responsible Observer: (CM) NON-AA GFR >60 mL/min None Note: Responsible Observer: (CM) POTASSIUM 4.0 mEq/L (3.6 - 5.0) None Note: Responsible Observer: (CM) SGOT/AST 11 U/L (5 - 40) None Note: Responsible Observer: (CM) SGPT/ALT 12 U/L (7 - 56) None Note: Responsible Observer: (CM) SODIUM 129 mEq/L (134 - 153) L (Low) Note: Responsible Observer: (CM) TOTAL BILI <0.7 MG/DL (0.2 - 1.3) None Note: Responsible Observer: (CM) TOTAL PROTEIN 5.6 G/DL (6.3 - 8.2) L (Low) Note: Responsible Observer: (CM) Reviewed by Rody Pham MD on 10/14; All test results are final unless otherwise noted. Reported Physicians [facility] Ordered by Rody Pham MD on 10/14/2019 Collected: 10/14/2019 Reported: 10/14/2019 06:53 Reported Physicians See Note None Note: Reported Physicians:Ordering: VINCENT VALDEZ BAttending: VINCENT ISSAConsulting: Mariama PHAM To: VINCENT ISSA Reviewed by Rody Pham MD on 10/14; All test results are final unless otherwise noted. CBC W/AUTOMATED DIFF [facility] Ordered by Rody Pham MD on 10/14/2019 Collected: 10/14/2019 Reported: 10/14/2019 06:28 #BASO 0.04 10\^3/uL (0.00 - 0.20) None Note: Responsible Observer: (CM) #EOS 0.31 10\^3/uL (0.00 - 0.70) None Note: Responsible Observer: (CM) #IG 0.05 10\^3/uL (0.00 - 0.10) None Note: Responsible Observer: (CM) #LYMPH 0.46 10\^3/uL (0.60 - 3.40) L (Low) Note: Responsible Observer: (CM) #MONO 0.73 10\^3/uL (0.00 - 0.90) None Note: Responsible Observer: (CM) #NEUT 6.06 10\^3/uL (2.00 - 6.90) None Note: Responsible Observer: (CM) #NRBC 0.00 10\^3/uL (0.00 - 0.00) None Note: Responsible Observer: (CM) %IG 0.7 % (0.0 - 0.0) H (High) Note: Responsible Observer: (CM) %NRBC 0.0 % (0.0 - 0.0) None Note: Responsible Observer: (CM) BASO 0.5 % (0.0 - 2.0) None Note: Responsible Observer: (CM) CBC W/AUTOMATED DIFF See Note None Note: COMPLETE BLOOD COUNTResponsibl e Observer: (CM) EOS 4.1 % (0.0 - 7.0) None Note: Responsible Observer: (CM) HEMATOCRIT 26.3 % (41.0 - 51.0) L (Low) Note: Responsible Observer: (CM) HEMOGLOBIN 9.1 g/dL (14.0 - 16.0) L (Low) Note: Responsible Observer: (CM) LYMPH 6.0 % (25.0 - 40.0) L (Low) Note: Responsible Observer: (CM) MANUAL DIFF NOT INDICATED None Note: Responsible Observer: (CM) MCH 31.8 pg (27.0 - 34.0) None Note: Responsible Observer: (CM) MCHC 34.6 g/dL (31.0 - 36.0) None Note: Responsible Observer: (CM) MCV 92.0 fL (80.0 - 94.0) None Note: Responsible Observer: (CM) MONO 9.5 % (3.0 - 8.0) H (High) Note: Responsible Observer: (CM) MPV 8.4 fL (7.4 - 10.4) None Note: Responsible Observer: (CM) NEUT 79.2 % (37.0 - 80.0) None Note: Responsible Observer: (CM) PLATELETS 268 10\^3/uL (150 - 450) None Note: Responsible Observer: (CM) RBC 2.86 10\^6/uL (4.50 - 6.30) L (Low) Note: Responsible Observer: (CM) RBC MORPH NOT INDICATED None Note: Responsible Observer: (CM) RDW 14.6 % (11.5 - 14.8) None Note: Responsible Observer: (CM) WBC 7.7 10\^3/uL (4.2 - 11.0) None Note: Responsible Observer: (CM) Reviewed by Rody Pham MD on 10/14; All test results are final unless otherwise noted. Reported Physicians [facility] Ordered by Rody Pham MD on 10/14/2019 Collected: 10/14/2019 Reported: 10/14/2019 06:28 Reported Physicians See Note None Note: Reported Physicians:Ordering: VINCENT VALDEZtending: VINCENT ISSAConsulting: Mariama PHAM To: VINCENT ISSA Reviewed by Rody Pham MD on 10/14; All test results are final unless otherwise noted. 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 Procedures and Surgical History Includes: Procedures from 08/22/2019 through 08/22/2020 Procedures Code Diagnosis Performing Provider Service Location Service Date [facility] [address] Malignant neoplasm o f unsp part of right bronchus or lung, Pure hyperglyceridemia, Dvrtclos of lg int w/o perforation or abscess w/o bleeding, Benign prostatic hyperplasia without lower urinry tract symp Abdi Mcnulty PA-C [facility] 08/21/2020 CMP-Complete Metabolic Profile 35332 Malignant neoplasm of unsp part of right bronchus or lung, Pure hyperglyceridemia, Dvrtclos of lg int w/o perforation or abscess w/o bleeding, Benign prostatic hyperplasia without lower urinry tract symp Abdi Hamlet [facility], [facility] 020 Venipuncture (routine) 62824 Malignant neoplas m of unsp part of right bronchus or lung, Pure hyperglyceridemia, Dvrtclos of lg int w/o perforation or abscess w/o bleeding, Benign prostatic hyperplasia without lower urinry tract symp Abdiladarius Mcnulty [facility], [facility] 08/21/2020 EKG- Electrocardiogram/12 lead 89717 Malignant neoplasm of unsp part of right bronchus or lung, Pure [facility]glyceridemia [facility] 07/12/2020 EKG- Electrocardiogram/12 lead (Distinct Seperate service-) 55581 Encounter for preprocedural cardiovascular examination, Malignant neoplasm of unsp part of right bronchus or lung, Pure hyperglyceridemia Abdiladarius Mcnulty [facility], [facility] 06/19/2020 CMP-Complete Metabolic Profile 49808 Hypo-osmolality a nd hyponatremia Abdi [facility], [facility] 11/29/2019 Venipuncture (routine) 44454 Hypo-osmolality and hyponatremi a Abdi Mcnulty [facility], [facility] 11/29/2019 no charge procedure [place] Hypo-osmolality and hyponatremia T sánchez Hamlet [facility], [facility] 10/25/2019 Surgical History Last Updated Surgical / procedural history Tonsillec sebas 1942; Removal right parotid gland stone in ; left herniorrhaphy 02-18; 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 All questions answered 08/13/2018 A recent immunization for flu 08/13/2018 Family History Includes: Family History in patient's chart Description Last Updated Fraternal history of diabetes mellitus 08/17/2015 Sororal history of diabetes mellitus 08/17/2015 Brother in good health has DM and APPLE 08/17/2015 Father at age 82 of dementia 08/17/2015 First child is a son healthy 08/17/2015 Mother at age 86 CVA after coumadi n stopped, had MVA in 1978, was wheelchair bound after this 08/17/2015 Second child at age 52 of lung cancer in 2012 Second child is a son 08/17/2015 Second sister in good health has OA 08/17/2015 Sister in good health has DM 08/17/2015 Third child in good health ~ No family history of breast, ovarian, colon or prostate cancer 08/17/2015 Third child is a son 08/17/2015 Review of Systems Review of Systems not supported for this document typeNo Review of Systems Recorded Mental Status Mental Status not supported for this document typeNo Mental Status Recorded Functional Status Functional Status not supported for this document typeNo Functional Status Recorded Physical Exam Physical Exam not supported for this document typeNo Physical Exam Recorded Immunizations Includes: Immunizations in patient's chart Vaccine Dose # Date Site Reaction(s) Status Source Fluzone High Dose 1 08/16/2015 Right Arm Complete (A dministered) [facility] Fluzone High Dose 2 08/12/2016 Left Deltoid Complete (Administered) [facility] Note: VIS Given Fluzone High Dose 3 08/18/2017 Left Deltoid Complete (Administered) [facility] Fluzone High Dose 4 08/04/2018 Complete (Reported) Patient Fluzone High Dose 5 06/07/2020 Complete (Reported) Patient PCV (Pneumovax 23) 1 11/19/2004 Complete (Reported ) Patient [id number] 1 08/16/2015 Right Arm Complete (Administe red) [facility] Note: VIS Given Tdap (> 7 yrs) 1 08/16/2015 Left Arm Complete (Admi nistered) [facility] Allergies Includes: Active, inactive, and resolved Allergies Substance Type Reaction Onset Date - Time Resolved Date - Ti me Status Prolia Intolerance 03/16/2018 - 12:00AM Act juan j Note: increased muscle pain Latex Allergy 08/17/2015 - 12:00AM Acti ve Encounters Includes: Encounters from 08/22/2019 through 08/22/2020 Encounter Provider Location Date Check-In Time Check-Out Time D iagnosis Annual Wellness SUBSEQUENT visi t([facility] 1yr [facility] 12:41PM 2:07PM Routine History and Physical Geriatric (80+ Yrs), Tobacco Use followup Abdi Hamlet [facility] 0 12:41PM 2:07PM Benign Prostatic Hypertrophy, Bundle Bra nch Block Right, Carotid Artery Stenosis, Hyponatremia, Lung Neoplasm Malignant Adenocarcinoma, Neuropathy, 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, Routine History and Physical Geriatric (80+ Yrs) electrocardiogram [facility] 10:31AM 11:16AM Benign Prostatic Hypertrophy , Bundle Branch Block Right Pre-op consult for surgery Abdiladarius Mcnulty [facility] 06/19/2020 10:58AM 11:26AM Benign Prostatic Hyp ertrophy, Working Diagnosis of Visit For: Preoperative Exam, Hyponatremia telephone conversation Rody Pham MD [facility], [facility] 02/10/2020 2:49PM 3:43PM Hyponatremia, Large Intestine Neoplasm, Benign - Adenomatous Polyp, Lung Neoplasm Malignant Adenocarcinoma, Osteopenia, Benign Prostatic Hypertrophy, Difficulty Breathing (Dyspnea) [facility] 12:29PM 1:10PM Hyponatremia, Lung Neoplasm Malignant Ad enocarcinoma Transitional Care Management HIGH complexity Abdi Mcnulty [facility] 10/25/2019 12:12PM 1:30PM Hyponatremia TCMNV phone call- NO CHARGE [facility] 08/09/2019 12:09PM 08/09/2019 11:59PM Insurance Includes: Active Insurance Policies Plan Name Member ID Group # Subscriber Relationship Effective Da adeel 1 - Medicare (NGS) [id number] Pablo Blum Self 2 - [employer] [id number] D monica Navarrete Advance Directives Includes: Current Advance DirectivesNo Advance Directives Recorded Health Concerns Includes: Active Health ConcernsNo Active Health Concerns Recorded Goals Includes: Active GoalsNo Active Goals Recorded Interventions Includes: Interventions for active GoalsNo Interventions Recorded Evaluations & Outcomes Includes: Evaluations & Outcomes for active GoalsNo Outcomes Recorded
--- OUTSIDE RECORDS SUMMARY | 2020-11-05 16:04 | CCD | Summary of Care ---
Author Author [facility] Organization [facility] Address Unknown Phone Unavailable Care Team Providers Care Winch Driver Name Role Phone Rody Pham MD PCP Reason for Referral * Diagnostic Radiology (Routine) Referred By Contact Referred To Contact Status Reason Specialty Diagnoses / Procedures Lianet Hatfield NP [address] [place] [address] Email: [email or web address] Authorized Radiology Diagnoses Primary adenocarcinoma of right lung P rocedures CT Abdomen Pelvis with Contrast * Diagnostic Radiology (Routine) Referred By Contact Referred To Contact Status Reason Specialty Diagnoses / Procedures Lianet Hatfield NP [address] [place] [address] Email: [email or web address] Authorized Radiology Diagnoses Primary adenocarcinoma of right lung P rocedures CT Thorax with Contrast Reason for Visit * Reason Comments Follow-up Encounter Details Care Team Description Date Type Department Lianet Hatfield NP [address] [place] [address] [phone] Primary adenocarcinoma of right lung (Pr imary Dx); Hx of iron deficiency 09/27/2020 Office Visit Hematology Oncology [address] [place] [address] Allergies Comments Active Allergy Reactions Severity Noted Date Latex 05/03/2012 documented as of this encounter (statuses as of 09/28/2020) Medications End Date Status Medication Sig Dispensed [...] as of this encounter (statuses as of 09/28/2020) Active Problems Problem Noted Date Left-sided weakness 10/10/2019 Hyponatremia 10/08/2019 Primary adenocarcinoma of right lung 09/27/2018 Cancer Staging: Clinical: Stage IVB (cT 4, cN3, pM1c) - Signed by Jyoti Florian MD on 10/08/2018 Mass of right lung 09/02/2018 Esophageal cancer 11/01/2013 Spasms right side with hearburn syptoms several month s 05/03/2012 documented as of this encounter (statuses as of 09/28/2020) Immunizations Name Administration Dates Next Due Influenza [...] PM EST Date Recorded COVID-19 Exposure Response 09/27/2020 12:46 PM EST In the last month, have you been in contact with No / Unsure someone who was confirmed or suspected to have Coronavirus / COVID-19? documented as of this encounter Last Filed Vital Signs Reading Time Taken Comments Vital Sign 155/77 09/27/2020 3:48 PM EST Blood Pressure 71 09/27/2020 3:48 PM EST Pulse 36.4 C (97.5 F) 09/27/2020 2:44 PM EST Temperature 12 09/27/2020 1:15 PM EST Respiratory Rate 99% 09/27/2020 2:44 PM EST ra Oxygen Saturation - - Inhaled Oxygen Concentration 60.3 kg (133 lb) 09/27/2020 1:15 PM EST Weight - - Height 19.64 10/08/2019 2:30 AM EST Body Mass Index documented in this encounter Progress Notes * Lianet Hatfield NP - 09/27/2020 2:15 PM EST Hematology/Oncology Follow Up Note Diagnosis: [...] infusion, 200 mg, Intravenous, Once, 30 of 33 cycles Administration: 200 mg (10/27/2018), [...] mg (), 200 mg (08/13/2020), 200 mg (09/03/2020) ECOG Performance Status: 1- Restricted in physically strenuous activity but ambu latory and able to carry out work of a light or sedentary nature, e.g., light ho use work, office work Oncologic History: Oncologic History Pablo Blum is a 85 y.o. male who used to be a former patient of Dr. Armijo for a past medical history of esophageal [...] 2.9 cm. He was referred to the [facility] where it was recommended that he undergo [...] time. Had a repeat imaging on the [facility] 2019 which showed numerous stable pleural-based [...] consi dering this he was referred to GI.He did follow-up with the GI doctor and inform s me a cholecystectomy is not warranted at this time. Most recently was seen in our office on 09/03/2020 and on that day he did receive cycle #30 of Keytruda. INTERVAL HISTORY: Since he was last seen,He notifies me that he tolerated treatment well.He inform s me shortness of breath has been stable. He continues to have shortness of alyssa ath on exertion. He continues with nocturnal oxygen 2l. In regards to his lung cancer he denies any dysphagia, odynophagia, hoarseness of the voice or hemopty sis. Denies any cough. Denies any immune related toxicity such as colitis, jonah h. He comes in today to be further evaluated and assess how he is doing. Subjective: Past Medical History: Diagnosis Date Arthritis Bilateral lung cancer Bilateral lung cancer Blood transfusion without reported diagnosis 2007 Enlarged prostate Non-small cell lung cancer Personal history of esophageal cancer Spinal cord cancer T3 area of spine Family and Social History Pablo Annie Blum family history includes Alzheimer's disease in his [...] chokin g, chest tightness, wheezing and stridor. "I still have sob but this is not new and has not gotten any worse. I still wear oxygen at night." Cardiovascular: [...] Vitals: Vitals - 1 value per visit 08/13/2020 09/03/2020 09/27/2020 SYSTOLIC 152 145 163 DIASTOLIC 65 69 78 PULSE 72 72 76 TEMPERATURE 97.6 97.3 97.2 RESPIRATIONS 16 16 12 Weight (kg) 58.968 kg 59.058 kg 60.328 kg HEIGHT - - - SPO2 98 96 98 BODY MASS INDEX 19.2 kg/m2 19.23 kg/m2 19.64 kg/m2 PAIN SCALE - SCORE 0 0 0 PAIN SCALE - LOCATION - - - Some recent data might be hidden Physical Exam Vitals signs reviewed. Constitutional: General: He is not in acute distress. Appearance: Normal appearance. He is not ill-appearing, toxic-appearing or di aphoretic. Comments: Kyposis,accompanied by SALVADOR: Head: Normocephalic and atraumatic. Nose: Nose normal. No congestion or rhinorrhea. [...] spinous process Lab Review Office Visit on 09/27/2020 Component Date Value Ref Range Status White Blood Cell 09/27/2020 8.1 4 - 10 10*3/uL Final Red Blood Cell 09/27/2020 4.13* 4.6 - 6.1 10*6/uL Final Hemoglobin 09/27/2020 12.8* 13.5 - 18 g/dL Final Hematocrit 09/27/2020 37.7* 41 - 53 % Final Mean Cell Volume 09/27/2020 91.3 80 - 96 fL Final Mean Cell Hemoglobin 09/27/2020 31.1 27 - 33 pg Final Mean Cell Hgb Conc 09/27/2020 34.0 32.0 - 36.0 g/dL Final Red Cell Dist Width 09/27/2020 14.0 11.5 - 14.5 % Final Platelet Count 09/27/2020 220 150 - 400 10*3/uL Final Differential Type 09/27/2020 Automated Diff Final Neutrophil 09/27/2020 71 % Final Lymphocyte 09/27/2020 8 % Final Monocyte 09/27/2020 11 % Final Eosinophil 09/27/2020 9 % Final Basophil 09/27/2020 1 % Final Abs Neutrophil 09/27/2020 5.74 1.8 - 7.0 10*3/uL Final Abs Lymphocyte 09/27/2020 0.68* 1.2 - 4.0 10*3/uL Final Abs Monocyte 09/27/2020 0.89* 0 - 0.8 10*3/uL Final Abs Eosinophil 09/27/2020 0.73* 0 - 0.5 10*3/uL Final Abs Basophil 09/27/2020 0.09 0 - 0.2 10*3/uL Final Nucleated Red Blood Cells 09/27/2020 0 0 - 0 /100 Final ] Assessment: The patient is an 85-year-old gentleman, who has past medical history of esophageal carcinoma, status post neoadjuvant chemotherapy and radiation, and esophagectomy in 2018, and stage I adenocarcinoma, status post SBRT in 2009. In early 2017, he was diagnosed with [...] evid ence of progression of disease. Dr. Gacria has reviewed the minimal growth in the [...] this present time,we will proceed with cycle #31 of Keytruda. 2. Iron deficiency anemia. S/p 1 dose of Injectafer. Recent ferritin from was 15 1.We will hold on injectafer today. We will get a ferritin and tibc today to fu rther evaluate this. 3. Fatigue/thyroid monitoring while on immunotherapy. TSH from today is 3.470 wh ich is in normal range. 4. Hyponatremia. CMP shows sodium 130. Patient is asymptomatic.No intervention w e will continue to monitor this at his next appt. 5. SOB.Stable since last visit. No further intervention is needed.Patient is on nocturnal oxygen. 6. HTN.Stable. Asymptomatic. We will continue to montior BP moving forward 7. Weight loss. Weight has stabilized. We will continue to trend patient weight moving forward. 8. Cholelithiasis and mild gallbladder wall thickening.Patient informs me he has met with GI and at this point they do not recommend removing his gallbladder. I await the progress note from the GI doctor. Plan: Pablo Blum should return in 3 weeks for ov with Martini and Keytruda Imaging prior to return to clinic?:yes,ct thorax,abdomen and pelvis Labs on return to clinic? yes,cbc,cmp,tsh Medication changes? no Opioid induced constipation? no Meds reconciled? yes Referrals needed? GI I did notify if they develop any [...] details were verified and edited as appropriate. Lianet Hatfield NP-C documented in this encounter Nursing Notes * Komal Martinez RN - 09/27/2020 2:15 PM EST TREATMENT ADMINISTRATION NOTE: Pablo Blum presents to infusion for Cycle 31, Day 1, of Keytruda . See Onco logy Nursing Assessment flowsheet for patients assessment.Port initiated w ithout incident. Port flushed easily and blood return was confirmed before, duri ng, and after treatment. Patient tolerated infusion well. Following infusion, Po rt discontinued per protocol. VS stable, and as noted below. Patient encouraged to call with any questions or concerns and aware of 24 hour on-call service.AVS provided with next appointment date and time. Patient discharged home, accompani ed by . Visit Vitals BP 155/77 Pulse 71 Temp 36.4 C (97.5 F) (Oral) Resp 12 Wt 60.3 kg (133 lb) SpO2 99% Comment: ra BMI 19.64 kg/m documented in this encounter Plan of Treatment Care Team Description Date Type Specialty 10/15/2020 Appointment Radiology Colt Garcia [place] [address] [phone] 10/23/2020 Office Visit Hematology and Onco logy Order Schedule Name Type Priority Associated Diag noses Expected: 09/27/2020, Expires: 2 CT Thorax with Contrast Imaging Routine Primar y adenocarcinoma of right lung Expected: 09/27/2020, Expires: 2 CT Abdomen Pelvis with Imaging Routine Primary adenocarcinoma of Contrast right lung Expected: 09/27/2020, Expires: 1 Ferritin Lab Routine Hx of iron defi ciency Expected: 09/27/2020, Expires: 1 Iron and TIBC Lab Routine Hx of iron defi ciency Health Maintenance Due Date Last Done Comments [...] Area Manufactur er 03/31/2023 [id number] / / [id number] Port- Power P-A-C -10 Fr Dl Lp - Left: Chest STEVE [id number] Wall MEDICAL Implanted: Qty: 1 on 10/27/2018 by Zackery Leigh MD at [facility] documented as of this encounter Procedures Comments Procedure Name Priority Date/Time Associated Diag nosis TOTAL FE BINDING CAPACITY Routine 09/27/2020 1:00 PM EST CBC AND DIFFERENTIAL STAT 09/27/2020 Primary a denocarcinoma of 1:00 PM EST right lung TSH Routine 09/27/2020 Primary adenoca rcinoma of 1:00 PM EST right lung FERRITIN LEVEL Routine 09/27/2020 1:00 PM EST COMPREHENSIVE METABOLIC STAT 09/27/2020 Primar y adenocarcinoma of PANEL 1:00 PM EST right lung documented in this encounter Results * Iron and TIBC (09/27/2020 1:00 PM EST) Iron 100 59 - 158 ug/dl [facility] CLINICAL PATHOLOGY Transferrin 222 200 - 360 mg/dL [facility] Serum CLINICAL PATHOLOGY Total Fe Bind 308 228 - 428 ug/dl [facility] Cap CLINICAL PATHOLOGY % Fe Saturation 33.0 20 - 55 % [facility] CLINICAL PATHOLOGY Specimen Plasma Performing Organization Address [facility] Ph one Number [facility] CLINICAL [address] [place] [address] 1321 PATHOLOGY * Ferritin Level (09/27/2020 1:00 PM EST) Ferritin 155 30 - 400 ng/ml [facility] CLINICAL PATHOLOGY Specimen Plasma Performing Organization Address [facility] one Number [address] 1321 PATHOLOGY * TSH (09/27/2020 1:00 PM EST) TSH 3.470 0.270 - 4.200 [facility] u[IU]/mL CLINICAL PATHOLOGY Specimen Plasma Performing Organization Address [facility] Ph one Number [address] 1321 PATHOLOGY * Comprehensive metabolic panel (09/27/2020 1:00 PM EST) Albumin 4.1 3.5 - 5.2 g/dL [facility] PATHOLOGY Bilirubin, 0.5 <1.2 mg/dL [facility] Total CLINICAL PATHOLOGY Calcium 8.7 (L) 8.8 - 10.2 mg/dL [facility] CLINICAL PATHOLOGY Chloride 96 (L) 98 - 107 mmol/L [facility] CLINICAL PATHOLOG[facility] Creatinine 0.75 0.70 - 1.20 mg/dL [facility] CLINICAL PATHOLOGY Glucose 100 70 - 140 mg/dL [facility] CLINICAL PATHOLOGY Alkaline 82 40 - 129 U/L [facility] Phosphatase CLINICAL PATHOLOGY Potassium 4.0 3.4 - 5.1 mmol/L [facility] PATHOLOGY Total Protein 6.3 (L) 6.4 - 8.3 g/dL [facility] CLINICAL PATHOLOGY Sodium 130 (L) 136 - 145 mmol/L [facility] PATHOLOGY AST/SGO 14 <40 U/L [facility] PATHOLOGY Blood Urea 11 8 - 23 mg/dL [facility] Nitrogen CLINICAL PATHOLOGY Osmolality, Parker 269 (L) 275 - 300 mosm/kg [facility] UPSTAT E CLINICAL PATHOLOGY BUN/Cre Ratio 15 [facility] CLINICAL PATHOLOGY Bicarbonate 27 22 - 29 mmol/L [facility] PATHOLOGY ALT/SGP 12 <41 U/L [facility] PATHOLOGY Anion Gap 7 (L) 8 - 15 mmol/L [facility] PATHOLOGY GFR Non eGFR is not calculated in >60 mL/min/1.73m2 [place] [address] patients <18 or >80 years of CLINICAL CDK-EPI age. PATHOLOGY GFR eGFR is not calculated in >60 mL/min/1.73m2 [facility] 2008 patients <18 or >80 years of CLINICAL CKD-EPI age. PATHOLOGY Specimen Plasma Performing Organization Address City/State/[facility] Ph one Number [facility] CLINICAL [address] [place] [address] PATHOLOGY * CBC and differential (09/27/2020 1:00 PM EST) White Blood 8.1 4 - 10 10*3/uL [facility] Univ Clin Pathology Red Blood Cell 4.13 (L) 4.6 - 6.1 10*6/uL [facility] Clin Pathology Hemoglobin 12.8 (L) 13.5 - 18 g/dL [facility] Clin Pathology Hematocrit 37.7 (L) 41 - 53 % [facility] Univ Clin Pathology Mean Cell 91.3 80 - 96 fL [facility] Volume [facility] Univ Clin Pathology Mean Cell 31.1 27 - 33 pg [facility] Hemoglobin Med Univ Clin Pathology Mean Cell Hgb 34.0 32.0 - 36.0 g/dL [facility] Univ Clin Pathology Red Cell Dist 14.0 11.5 - 14.5 % [facility] Width [facility] Clin Pathology Platelet Count 220 150 - 400 10*3/uL [facility] Clin Pathology Differential Automated Diff [facility] Type [facility] Univ Clin Pathology Neutrophil 71 % [facility] Clin Pathology Lymphocyte 8 % [facility] Clin Pathology Monocyte 11 % [facility] Clin Pathology Eosinophil 9 % [facility] Clin Pathology Basophil 1 % [facility] Clin Pathology Abs Neutrophil 5.74 1.8 - 7.0 10*3/uL [facility] Clin Pathology Abs Lymphocyte 0.68 (L) 1.2 - 4.0 10*3/uL [facility] Clin Pathology Abs Monocyte 0.89 (H) 0 - 0.8 10*3/uL [facility] Clin Pathology Abs Eosinophil 0.73 (H) 0 - 0.5 10*3/uL [facility] Clin Pathology Abs Basophil 0.09 0 - 0.2 10*3/uL [facility] Clin Pathology Nucleated Red 0 0 - 0 /100{WBCs} [facility] Blood Cells [facility] Clin Pathology Specimen EDTA Whole Blood Performing Organization Address City/[facility] Ph one Number [facility] CLINICAL [address] [place], [place] 132[address] PATHOLOGY [facility] [address] [place], [place] [address] Clin Pathology documented in this encounter Visit Diagnoses Diagnosis Primary adenocarcinoma of right lung - Primary Hx of iron deficiency Personal history of diseases of blood a nd blood-forming organs documented in this encounter Administered Medications Action Date Dose Rate Site Medication Order MAR Action 09/27/2020 3:09 PM EST 200 mg 100 mL/hr pembrolizumab (KEYTRUDA) 200 mg in New Bag sodium chloride 0.9 % 50 mL chemo infusion 200 mg, Intravenous, Administer over 30 Minutes, Once, Barbara 09/27/20 at 1500, Fo r 1 dose documented in this encounter
--- OUTSIDE RECORDS SUMMARY | 2020-11-05 16:05 | CCD ---
Author Author [facility] Organization [facility] Address [address] [place] [address] Phone Care Team Providers Care Newspaper Copy Editor Name Role Phone Nandini KIRKLAND, Joshua De La Torre Unavailable Unavailable Jose KIRKLAND, Colt Pedersen Unavailable Unavailable Anival KIRKLAND, Jyoti Valencia Unavailable Unavailable Ankit KIRKLAND, Rody James PP [phone] [facility] Nurse Pract, Nancy Unavailable Unava hailee Pagan MD, Dr Sandoval Unavailable Unavailable Alcona III, Willie C Unavailable Unavailable Alysia ORDER CHECKER 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 PROCESSER, Martini A Unavailable Unavailable Reason for Referral [...] cm Colonic Diverticulosis 08/12/2016 - 12:00AM Lorrie Maxwell ser ANP-BC Active Gastritis Bile-induced 02/14/2016 - 12:00AM Lorrie Maxwell ser ANP-BC Active Note: EGD 7-, bile gastri tis, was severe gastritis in 2012, restarted Reglan and probiotics in [place] Hyponatremia 02/14/2016 - 12:00AM Lorrie Mcnulty ANP-BC [...] Benign Prostatic Hypertrophy 08/16/2015 - :00AM Oj Mcnulty ANP-BC Active Note: sulcus not preserved, Ischemia Transient 08/16/2015 - :00AM Lorrie ALMANZAR-BC Active Note: with numbness left arm /hand, neurology workup, suspicious for TIA, started on aspirin 325mg Diabetes Mellitus Type 2 - Uncomplicated, Controlled B y Diet 08/16/2015 - 12:00AM Unknown - Unknown Abdi MATA-C Resolved Note: A1C 5.1 today Disturbance of Smell Anosmia 08/16/2015 - 12:00AM Oj Mcnulty ANP-BC Active Note: dx 12-11 after viral i llness, saw ENT, Dr Love, CT sinuses and neck was neg, has loss of taste also Esophageal Neoplasm Malignant Carcinoma Squamous Cell 08/16/2015 - 12:00AM Lorrie Mcnulty ANP-BC Active Note: dx 12-, with lympha denopathy of abd/periaortic region, rx chemotherapy and radiation 10-26, esophagectomy 12-24, annual PET in December. 5yr dx in 2-, discharged by Dr Adhikari, now follows with Dr Delatorre, last EGD 7-15 Gout 08/16/2015 - 12:00AM Lorrie Mcnulty ANP-BC Active Note: remote, no longer take s allopurinol Hypertension (Systemic) 08/16/2015 - 12:00AM Unknown - Unknown Abdi Mcnulty PA-C Resolved Note: no meds since weight l oss 2007 Osteopenia 08/16/2015 - 12:00AM Lorrie Mcnulty ANP-BC Active Note: DEXA 2014, endocrinolo gy recommended vit D level >50 Large Intestine Neoplasm, Benign - Adenomatous Polyp 08/16/2015 - 12:00AM Lorrie Mcnulty ANP-BC Active Note: colonoscopy Dr Araceli dave, none in 05/02 Lung Neoplasm Malignant Adenocarcinoma 08/16/2015 - 12:00AM Lorrie Mcnulty ANP-BC Active Note: incidental finding01-25 , 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 Has stable ground glass opacity lung nodules since 2010, last CT 12-02. 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 in 08-05 with mets to T2 and mediastinal adenopathy Nephrolithiasis 08/16/2015 - 12:00AM Lorrie Mcnulty ANP -BC Active Note: remote Carotid Artery Stenosis 08/16/2015 - 12:00AM Lorrie martinez ANP-BC Active Note: carotid ultraound-mode rate 16-49% yojana narrowing - Rhinitis 08/16/2015 - 12:00AM Lorrie ALMANZAR-BC Active Note: with eating, started A trovent nasal spray in 08-02 Rosacea 08/16/2015 - 12:00AM Lorrie Mcnulty ANP-BC Active Note: uses metronidazole cre am Plan of Treatment Pending Tests Order Diagnosis Results Due Ordering Provi robert Outside Labs CMP Hypo-osmolality and hyponatremia 11/01/19 Abdi Mcnulty PA-C Lab CBC 02/05/20 Abdi Mcnulty PA-C Lab CMP 02/05/20 Abdi Mcnulty PA-C Referral Medical Office Coordinator Unspecified right bundle-branch block Abdi Mcnulty PA-C Care Programs Accountable Care [facility] [place] Findings Encounter Date Aspirin to be held [...] visit date 10/25/2019 TCM appointment with Nura SPENCENRosalinda phone call- NO CHARGE with Abdi Mcnulty PA-C 10/21/2019 Transitional care management services with moderate co mplexity decision making TCMNV phone call- NO CHARGE with Abdi Mcnulty PA-C 10/21/2019 Visit for: screening for cardiovascular disorders A nnual Wellness SUBSEQUENT visi t(> 1yr since prev. with Lorrie Mcnulty ANP-BC 08/12/2016 Assessments Includes: Assessments for all patient encounters Findings Encounter Date Routine geriatric history and physical (80+ yrs) [...] intolerant and reluctant to try other medications. 2019 DEXA shows osteopenia [Other specified disorders of [...] currently having treatments q 3 weeks at [facility] and is having a very good experience. Cancer is improving and he is feeling well on treatment followup with Abdi Mcnulty PA-C 08/09/2019 Assessment of xerostomia , uses biotin followup with Abdi avitia PA-C 08/09/2019 Benign prostatic hypertrophy , stable on flomax followup wit h Abdi Mcnulty PA-C 08/09/2019 Bile-induced gastritis , stable with sucralfate followup wit h Abdi Mcnulty PA-C 08/09/2019 Colonic diverticulosis , stable followup with Abdi Hager 08/09/2019 Gout , no recent problems followup with Abdi Mcnulty PA-C 07/20 Hyponatremia , stable followup with Abdi Mcnulty PA-C 08/09/20 19 No tobacco use . quit smoking in 1999 Annual Welln ess SUBSEQUENT visi t(> 1yr since prev. with Abdi Mcnulty PA-C 08/09/2019 Routine senior citizen history and physical (65-80 yrs ) Annual Wellness SUBSEQUENT visi t(> 1yr since prev. with Abdi Mcnulty PA-C 08/09/2019 Adenocarcinoma of the lung -Recurrence 09/05 [...] if this will help followup with Lorrie ALMANZAR-THAIS 02/08/2019 Aortic aneurysm Was found on Medicare w ellness visit, distal aorta 3.3 cm 09/03 . 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 Delatorre followup with [facility] 02/08/2019 Carotid artery stenosis -ultrasound 4-1 9, less than 50%, no significant stenosis, unchanged in past 2 years followup with [facility] 02/08/2019 Hyponatremia Sodium level is 123 , this is usual baseline, may be related to cancer diagnosis followup with [facility] 02/08/2019 Neuropathy thought possibly related to chemotherapy or diabetes, has seen in the past, not believed to be vascular in origin followup with [facility] 02/08/2019 Osteopenia Vitamin D level is 40, DEXA worse in 2014, he took 1 dose of prolia, was intolerant and reluctant to try other medications. Will recheck DEXA followup with [facility] 02/08/2019 Salivary secretion disturbance: xerostom ia -usingt biotene dry mouh rinse or sugar free gum which is citrus flavored, followup with [facility] 02/08/2019 Squamous cell carcinoma of the esophagus -Esophagram completed in 12/04 with no evidence of esophagitis or neoplasm, Dr. Delatorre, last balloon dilatation for stricture was 10/03, initial diagnosis 2007 followup with [facility] 02/08/2019 Type 2 diabetes mellitus - uncomplicated , controlled by diet Hemoglobin A1c currently is 6.0- followup with [facility] 02/08/2019 Pulmonary metastases Refer to thoracic surgery for tissue sampling and oncology, Dr. Adhikari, whom patient has followed with in the past [Secondary malignant neoplasm of right lung] sick visit with Rody Pham MD 08/25/2018 Squamous cell carcinoma of the esophagus sick visit with Pablito Pham MD 08/25/2018 Arthralgia of shoulder region [...] CT 2013, was negative [facility] Aortic aneurysm Was found on Medicare w ellness visit, distal aorta 3.3 cm 09/03 . 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 Delatorre, having more diarrhea, consider questran [facility] Carotid artery stenosis Completed 09/04 , less than 50%, no significant stenosis [facility] Hyponatremia Sodium level is 131 , he d oes not take a diuretic , he does limit water intake, tries to drink tea, Gatorade mixed with water, etc [facility] Neuropathy thought possibly related to chemotherapy or diabetes, has seen in the past, not believed to be vascular in origin [facility] Osteopenia Vitamin D level is 35, recen t DeXA is worsening, he took 1 dose of proliia, indicates he cannot tolerate it. He was encourages to walk some daily , will try to increase vitamin D to 45-50 [facility] Salivary secretion disturbance: xerostom ia -start biotene dry mouh rinse or sugar free gum which is citrus flavored, avoid sorbitol products due to diarrhea followup with Lorrie Patrick [facility] 02/09/2018 Squamous cell carcinoma of the esophagus -Esophagram completed in 12/04 with no evidence of esophagitis or neoplasm, Dr. Delatorre, last balloon dilatation was 10/03, initial diagnosis 2007 followup with Lorrie M [facility] 02/09/2018 Type 2 diabetes mellitus - uncomplicated , controlled by diet Hemoglobin A1c currently is 6.3-, he has lost 3 pounds over the past year followup with Lorrie Darnell [facility] 02/09/2018 Adenocarcinoma of the lung Last CT 2013, was negative followup with [facility] 08/18/2017 Aortic aneurysm Was found on Medicare w ellness visit, 3.3 cm in 09/03 Will repeat followup with [facility] 08/18/2017 Bile-induced gastritis Patient having m ore symptoms, has seen Dr. Delatorre, barium swallow was done 12/04, no evidence of neoplasm or stenosis followup with [facility] 08/18/2017 Carotid artery stenosis Completed 09/03, no hemodynam ic stenosis-will recheck followup with [facility] 08/18/2017 Hyponatremia Sodium level is 127 , he d oes not take a diuretic , he does limit water intake, tries to drink tea, Gatorade mixed with water, etc followup with Lebec Darnell [facility] 08/18/2017 Neuropathy Was seen by Dr. Pagan in 02/16 6, did not believe neuropathy had a vascular component, thought possibly related to chemotherapy or diabetes followup with [facility] 08/18/2017 Osteopenia Vitamin D level is 41, has d ecreased from 55, states he recently restarted vitamin D after taking a holiday over the summer , patient is due for DEXA followup with Lorrie Darnell [facility] 08/18/2017 Squamous cell carcinoma of the esophagus -Esophagram completed in 12/04 with no evidence of esophagitis or neoplasm, Dr. Delatorre, last balloon dilatation was 10/03 followup with Lorrie M [facility] 08/18/2017 Type 2 diabetes mellitus - uncomplicated , controlled by diet Hemoglobin A1c currently is 5.7-, he has lost 3 pounds over the past year followup with Lorrie D[facility]ell [facility] 08/18/2017 No tobacco use Annual Wellness SUBSEQUEN T visi t(> 1yr since prev. with Lorrie M [facility] 08/18/2017 Routine senior citizen history and physical (65-80 yrs ) Annual Wellness SUBSEQUENT visi t(> 1yr since prev. with Lorrie LIU 08/18/2017 Benign prostatic hypertrophy With lower tract [...] CT 2013, was negative followup with Lorrie [facility] 08/12/2016 Bile-induced gastritis Patient having m ore symptoms, has seen Dr. Delatorre, barium swallow was done, will retrieve that report [facility] Carotid artery stenosis I'm unable to find report sin ce 2012, will research followup with Lorrie Mcnulty [facility] 08/12/2016 Hyponatremia Sodium level has improved to 131, he does limit water intake, tries to drink tea, Gatorade mixed with water, etc [facility]/12/2016 Neuropathy Was seen by Dr. Pagan in 02/16 6, did not believe neuropathy had a vascular component, thought possibly related to chemotherapy or diabetes [facility]/12[facility]2016 Osteopenia Vitamin D level is 55, recommendation was to be greater than 50 followup with Lorrie Mcnulty [facility] 08/12/2016 Squamous cell carcinoma of the esophagus -Esophagram completed in 12/04 with no evidence of esophagitis or neoplasm, Dr. Delatorre followup with Lorrie [facility] 08/12/2016 Type 2 diabetes mellitus - uncomplicated, controlled b y diet followup with Lorrie [facility] 08/12/2016 No tobacco use Annual Wellness SUBSEQUEN T visi t(> 1yr since prev. with Lorrie Patrick [facility] 08/12/2016 Routine senior citizen history and physical (65-80 yrs ) Annual Wellness SUBSEQUENT visi t(> 1yr since prev. 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 Symptoms have improved, not certain he is taking carafate as suggested followup with [facility] 02/14/2016 Carotid artery stenosis last carotid ul trasound was in 2012 with 16-49% stenosis, slight increase since 2005, had neurology workup for TIA symptoms 2012, now on aspirin 325 mg followup with [facility] 02/14/2016 Hyponatremia Na+ level is 126 today, un certain of cause. will limit water intake to 1000 cc per day, other fluids should be gatorade, tea, juice of soda, recheck BMP, obtain urine osmolality.urine sodium and chloride levels, TSH and free T4 in 1 week followup with [facility] 02/14/2016 Intermittent claudication and tingling of feet developed over winter months, will refer to Dr Nogueira followup with [facility] 02/14/2016 Neuropathy -is worsening, will start ga bapentin at 100mg daily and increase depending on improvement of symptom followup with [facility] 02/14/2016 Osteopenia vitamin D level is now at 55 , last DEXA 09/02, is walking more with warm weather followup with [facility] 02/14/2016 Squamous cell carcinoma of the esophagus -has passed 5yr survival, now follows with Dr Delatorre, plans next EGD in 2019 unless symptoms followup with [facility] 02/14/2016 Type 2 diabetes mellitus - uncomplicated, controlled b y diet -HAI is 6.1 [facility]2016 Anosmia -continues to take zinc which h as not really helped this symptom which was first noted in 2010, may stop [facility]2015 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 Having increased difficulty with balance after taking Reglan, and will discontinue Reglan for now. He developed increased GI symptoms after Reglan stopped in 2012, monitor closely, pt to call if symptoms worsen new patient with Lorrie Mcnulty [facility] 08/16/2015 Hypertension -well controlled without meds since weig ht loss in 2007 new patient with Lorrie Mcnulty [facility] 08/16/2015 Normal routine history and physical adonis or citizen (65-80) -new patient to this office [not annual appointment] [facility] Osteopenia -increased osteopenia in 201 3, will recheck DEXA and vitamin D level [facility]/16[facility]2015 Rhinitis is profuse and occurs with eating, will try atrovent nasal spray [facility]2015 Squamous cell carcinoma of the esophagus -no longer follows with Dr Adhikari in [place] after 5 yr survival [2-14], last seen in fall 2013 [facility]/16/2015 Type 2 diabetes mellitus - uncomplicated , 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16[facility]2015 Instructions Instructions not supported for this [...] Relief 50 MCG/ACT Nasal Suspension 0 Provider: Abdi Mcnulty PA-C Diagnosis: 1 spray [...] 100MG/4ML Intravenous Solution 02/08/2019 Provider: Lorrie Mcnulty ANP- Diagnosis: given in oncology unit every 3 [...] Tablet 02/08/2019 - 08/09/2019 Provider : Lorrie ALMANZAR-BC Diagnosis: 1 PO QD Flonase Allergy Relief [...] Capsule Delayed Release 02/09/2018 - Provider: Lorrie ALMANZAR-BC Diagnosis: 1 tab once daily Finasteride 5MG Oral Tablet 02/09/2018 - 02/08/2019 Provider : Lorrie Mcnulty ANP-BC Diagnosis: 1 PO QD Finasteride 5MG Oral Tablet 02/08/2018 - 02/09/2018 Provider : Rambo Macario MD Diagnosis: 1 PO QD Prolia 60MG/ML Subcutaneous Solution 10/06/2017 - 02/09/2018 Provider: Lorrie Mcnulty ANP-BC Diagnosis: injection q6 months, started 10-06-17 Sucralfate 1GM Oral Tablet 08/18/2017 - 08/13/2018 Provider: Lorrie ALMANZAR-BC Diagnosis: Gastritis, unspecifi ed, without bleeding 1 [...] GM Tablet 09/08/2016 - 08/18/2017 Provider: Lorrie Mcnulty [facility] Diagnosis: 1 tab before meals Omeprazole 40 MG Capsule Delayed Release 08/12/2016 - 2017 Provider: Lorrie Mcnulty [facility] Diagnosis: Other specified dise ases of esophagus Take 1 tab before evening meal Aspirin 325 MG Tablet 08/12/2016 - 08/09/2019 Provider: Lorrie Mcnulty [facility] Diagnosis: 1 PO QD Gabapentin 100 MG Capsule 08/12/2016 - 08/18/2017 Provider: Lorrie Mcnulty [facility] Diagnosis: Other specified poly neuropathies 1 tab at bedtime for 3 days then increas e to 1 tab every 12 hrs, in 7 d continued sx increase 1 tab 3 times a day Carafate 1 GM Tablet 08/12/2016 - 09/08/2016 Provider: Lorrie Mcnulty [facility] Diagnosis: 1 tab before meals Metoclopramide HCl 10 MG Tablet 08/12/2016 - 08/18/2017 Prov ider: Lorrie Mcnulty [facility] Diagnosis: Other specified dise ases of esophagus Take 1 tab before each meal Carafate 1 GM Tablet 02/15/2016 - 08/12/2016 Provider: Lorrie Mcnulty [facility] Diagnosis: [address] Delatorre Gabapentin 100 MG Capsule 02/14/2016 - 08/12/2016 Provider: Lorrie Mcnulty [facility] Diagnosis: 1 tab at bedtime for 3 days then increas e to 1 tab every 12 hrs, in 7 d continued sx increase 1 tab 3 times a day Flomax 0.4 MG Capsule 02/14/2016 - 02/10/2017 Provider: Lorrie Mcnulty [facility] Diagnosis: 1 tab twice daily [facility] Zinc 50 MG Tablet 08/17/2015 - 08/12/2016 Provider: Diagnosis: Magnesium 400 MG Capsule, conventional 08/17/2015 - 08/12/20 16 Provider: Diagnosis: for leg cramps EQ Complete Multivitamin-Adult Tablet 08/17/2015 - 8 Provider: Diagnosis: Aspirin 81 MG Tablet 08/17/2015 - 08/12/2016 Provider: Diagnosis: Reglan 10 MG Tablet 08/16/2015 - 08/12/2016 Provider: Lorrie ALMANZAR-BC Diagnosis: Take 1 tab before each meal and at bedtime Omeprazole 40 MG Capsule, delayed-release 08/16/2015 - 08/12 Provider: Lorrie Mcnulty ANPMitraBC Diagnosis: Take 1 tab before evening meal Flomax 0.4 MG Capsule, conventional 08/16/2015 - 02/14/2016 Provider: Lorrie ALMANZAR-BC Diagnosis: 1 tab twice daily Atrovent 0.03 % Solution 08/16/2015 - 08/12/2016 Provider: Lorrie GEORGEBC Diagnosis: instill 2 sprays each nostril once daily Medications Administered Includes: Administered Medications in patient's chartNo Administered Medications Recorded Vital Signs Includes: Vital Signs from 08/21/2019 through 08/21/2020 Vital Name 08/21/2020 12:57P 08/21/2020 12:56P 06/19/2020 [...] Sitting L 126/68 Results Includes: Results from 08/21/2019 through 08/21/2020 CORONAVIRUS COVID-19 [facility] Ordered by Abdi Mcnulty PA-C on 05/07/2020 Collected: 05/07/2020 Reported: 05/09/2020 14:09 SARS-CoV-2, MELODIE Not Detected (Not Detected) None Note: This test was developed and its pe rformance characteristics determinedby [employer]. This test has not been FDA cleared [...] (not detected) result in this assay.Responsible Observer: (robby) Reviewed by Abdi Mcnulty PA-C on 0; All test results are final unless otherwise noted. Reported Physicians [facility] Ordered by Abdi Mcnulty PA-C on 05/07/2020 Collected: 05/07/2020 Reported: 05/09/2020 14:09 Reported Physicians See Note None Note: Reported Physicians:Ordering: HELIO JOVELAttending: MAURA GLASSonsulting: Mariama PHAM To: Helio Glass Reviewed by Abdi Mcnulty PA-C on 0; All test results are final unless otherwise noted. [facility]-house [facility] Ordered by Abdi Mcnulty PA-C on 11/29/2019 [address] [place], [address] Collected: 11/29/2019 Reported: 11/29/2019 15:53 tel : [...] result s are final unless otherwise noted. BASIC METABOLIC PANEL [facility] Ordered by Rody Pham MD on [...] (134 - 153) None Note: Responsible Observer: (CM) Reviewed by Rody Pham MD on 10/24; All test results are final unless otherwise noted. Reported Physicians [facility] Ordered by Rody Pham MD on 10/19/2019 Collected: 10/19/2019 Reported: 10/19/2019 07:57 Reported Physicians See Note None Note: Reported Physicians:Ordering: ANIKET STONE AAttending: VINCENT ISSAConsulting: Mariama PHAM To: Tong Xavier To: VINCENT ISSA Reviewed by Rody Pham MD on 10/24; All test results are final unless otherwise noted. CBC W/AUTOMATED DIFF [facility] Ordered by Rody Pham MD on [...] (4.2 - 11.0) None Note: Responsible Observer: (SHON) Reviewed by Rody Pham MD on 10/24; All test results are final unless otherwise noted. Reported Physicians [facility] Ordered by Rody Pham MD on 10/19/2019 Collected: 10/19/2019 Reported: 10/19/2019 07:26 Reported Physicians See Note None Note: Reported Physicians:Ordering: ANIKET STONE AAttending: VINCENT ISSAConsulting: RODY PHAMCopldaarius To: Tong Xavier To: VINCENT ISSA Reviewed by Rody Pham MD on 10/24; All test results are final unless otherwise noted. COMPREHENSIVE METABOLIC PANEL [facility] L ab Ordered by Jenny Brown RPA on 10/18/2019 Collected: 10/18/2019 Reported: 10/18/2019 11:58 A/G RATIO 1.8 (0.8 - 2.0) None Note: Responsible Observer: () AFR AMER GFR >60 mL/min None Note: [...] and above >32 mL/min NormalResponsible Observer: () AGE 84 yrs None Note: Responsible Observer: (MD) ALBUMIN 4.2 G/DL (3.9 - 5.0) None Note: Responsible Observer: (MD) ALKALINE PHOS 112 U/L (38 - 126) None Note: Responsible Observer: (MD) ANION GAP 13.0 mmol/L (8.0 - 16.0) None Note: Responsible Observer: (MD) BUN 10 MG/DL (7 - 21) None Note: Responsible Observer: (MD) BUN/CREAT 13 (8 - 27) None Note: Responsible Observer: (MD) CALCIUM 9.3 MG/DL (8.4 - 10.2) None Note: Responsible Observer: () CHLORIDE 95 mEq/L (98 - 107) L (Low) Note: Responsible Observer: (MD) CO2 24 MEQ/L (22 - 30) None Note: Responsible Observer: () COMPREHENSIVE METABOLIC PANEL See Note None Note: COMPREHENSIVE METABOLIC PANELR esponsible Observer: () CREATININE 0.8 MG/DL (0.7 - 1.5) None Note: Responsible Observer: (MD) GLOBULIN 2.3 GM/DL (2.4 - 3.2) L (Low) Note: Responsible Observer: () GLUCOSE 165 MG/DL (65 - 110) H (High) Note: Responsible Observer: () NON-AA GFR >60 mL/min None Note: Responsible Observer: (MD) POTASSIUM 4.0 mEq/L (3.6 - 5.0) None Note: Responsible Observer: () SGOT/AST 14 U/L (5 - 40) None Note: Responsible Observer: () SGPT/ALT 11 U/L (7 - 56) None Note: Responsible Observer: () SODIUM 132 mEq/L (134 - 153) L (Low) Note: Responsible Observer: () TOTAL BILI <0.7 MG/DL (0.2 - 1.3) None Note: Responsible Observer: () TOTAL PROTEIN 6.5 G/DL (6.3 - 8.2) None Note: Responsible Observer: () Reviewed by Jenny Brown RPA on 10/21; All test results are final unless otherwise noted. Reported Physicians [facility] Ordered by [facility] on 10/18/2019 Collected: 10/18/2019 Reported: 10/18/2019 11:59 Reported Physicians See Note None Note: Reported Physicians:Ordering: DK HANNON: VINCENT ISSAConsulting: ANKIT KATHRYNCopladarius To: Alanis CABRERA To: VINCENT ISSA Reviewed by Jenny Brown [facility] on 10/21; All test results are final unless otherwise noted. CBC NO DIFF [facility] Ordered by [facility] on 10/18/2019 Collected: 10/18/2019 Reported: 10/18/2019 10:30 [...] Responsible Observer: (BLD) Reviewed by Jenny Brown RPA on 10/21; All test results are final unless otherwise noted. Reported Physicians [facility] on 10/18/2019 Collected: 10/18/2019 Reported: 10/18/2019 10:30 Reported Physicians See Note None Note: Reported Physicians:Ordering: DK HANNONding: VINCENT ISSAConsulting: PABLITO PHAMHRYNCopladarius To: Alanis CABRERA To: VINCENT ISSA Reviewed by Jenny Brown RPA on 10/21; All test results are final unless otherwise noted. BASIC METABOLIC PANEL [facility] Ordered by Jenny Brown RPA on 10/17/2019 Collected: 10/17/2019 Reported: 10/17/2019 08:45 AFR AMER GFR >60 mL/min None Note: Responsible Observer: () AGE 84 yrs None Note: Responsible Observer: () ANION GAP 12.0 mmol/L (8.0 - 16.0) None Note: Responsible Observer: () BASIC METABOLIC PANEL See Note None Note: BASIC METABOLIC PANELResponsib le Observer: () BUN 8 MG/DL (7 - 21) None Note: Responsible Observer: () BUN/CREAT 11 (8 - 27) None Note: Responsible Observer: () CALCIUM 9.3 MG/DL (8.4 - 10.2) None Note: Responsible Observer: () CHLORIDE 92 mEq/L (98 - 107) L (Low) Note: Responsible Observer: () CO2 28 MEQ/L (22 - 30) None Note: Responsible Observer: () CREATININE 0.7 MG/DL (0.7 - 1.5) None Note: Responsible Observer: () GLUCOSE 128 MG/DL (65 - 110) H [...] (3.6 - 5.0) None Note: Responsible Observer: () SODIUM 132 mEq/L (134 - 153) L (Low) Note: Responsible Observer: () Reviewed by Jenny Brown RPA on 10/17; All test results are final unless otherwise noted. Reported Physicians [facility] Ordered by Jenny Brown RPA on 10/17/2019 Collected: 10/17/2019 Reported: 10/17/2019 08:45 Reported Physicians See Note None Note: Reported Physicians:Ordering: ANIKET STONE AAttending: VINCENT ISSAConsulting: Mariama PHAM To: Tong Xavier To: VINCENT ISSA Reviewed by Jenny Brown RPA on 10/17; All test results are final unless otherwise noted. COMPREHENSIVE METABOLIC PANEL [facility] Ordered by Rody Pham MD [...] are final unless otherwise noted. Reported Physicians [facility] Ordered by Rody Pham MD on 10/14/2019 Collected: 10/14/2019 Reported: 10/14/2019 06:53 Reported Physicians See Note None Note: Reported Physicians:Ordering: VINCENT VALDEZding: VINCENT ISSAConsulting: Mariama PHAM To: VINCENT ISSA Reviewed by Rody Pham MD on 10/14; All test results are final unless otherwise noted. CBC W/AUTOMATED DIFF [facility] Ordered by Rody Pham MD on [...] are final unless otherwise noted. 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, Pure hyperglyceridemia Abdi Mcnulty PA-C [facility], [facility] 07/12/2020 EKG- Electrocardiogram/12 lead (Distinct Seperate service-) 61573 Encounter for preprocedural cardiovascular examination, Malignant neoplasm of unsp part of right bronchus or lung, [facility] 06/19/2020 CMP-Complete Metabolic Profile 21935 Hypo-osmolality a nd hyponatremia [facility] 11/29/2019 Venipuncture (routine) 15142 Hypo-osmolality and [facility]onatremi [facility] 11/29/2019 no charge procedure [place] Hypo-osmolality and hyponatremia T sánchez [facility], [facility] 10/25/2019 Surgical History Last Updated Surgical / procedural history Tonsillec sebas 1942; Removal right parotid gland stone in ; left herniorrhaphy 02-18; 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; Repair of esophagogastric anastomosis leak with redo thoracotomy and debridement of anastomosis and ligation of thoracic duct; Dilatation esophagus in 2007 and 2-2010, 2015, EGD in -15 02/17/2019 Medical History Includes: Medical History in patient's [...] 1 08/16/2015 Right Arm Complete (A dministered) [facility] Fluzone High Dose 2 08/12/2016 Left Deltoid Complete (Administered) [facility] Note: VIS Given Fluzone High Dose 3 08/18/2017 Left Deltoid Complete (Administered) [facility] Fluzone High Dose 4 08/04/2018 Complete (Reported) Patient Fluzone High Dose 5 06/07/2020 Complete (Reported) Patient PCV (Pneumovax 23) 1 11/19/2004 Complete (Reported ) Patient [id number] 1 08/16/2015 Right Arm Complete (Administe red) [facility] Note: VIS Given Tdap (> 7 yrs) 1 08/16/2015 Left Arm Complete (Admi nistered) [facility] Allergies Includes: Active, inactive, and resolved Allergies Substance Type Reaction Onset Date - Time Resolved Date - Ti me Status Prolia Intolerance 03/16/2018 - 12:00AM Act juan j Note: increased muscle pain Latex Allergy 08/17/2015 - 12:00AM Acti ve Encounters Includes: Encounters from 08/21/2019 through 08/21/2020 Encounter Provider Location Date Check-In Time Check-Out Time D iagnosis Annual Wellness SUBSEQUENT visi t(> 1yr since prev. Abdi Mcnulty PA-C [facility], [facility] 08/21/2020 12:41PM 07/12/2020 11:59PM Karen colindres History and Physical Geriatric (80+ Yrs), Tobacco Use followup Abdi Mcnulty PA-C [facility] 0 12:41PM 07/12/2020 11:59PM electrocardiogram Abdi Hamletmario STACK [facility] 07/12/2020 10:31AM 11:16AM Benign Prostatic Hypertrophy , Bundle Branch Block Right Pre-op consult for surgery Abdi Mcnulty PA-C [facility], [facility] 06/19/2020 10:58AM 11:26AM Benign Prostatic Hyp ertrophy, Working Diagnosis of Visit For: Preoperative Exam, Hyponatremia telephone conversation Rody Pham MD [facility], [facility] 02/10/2020 2:49PM 3:43PM Hyponatremia, Large Intestine Neoplasm, Benign - Adenomatous Polyp, Lung Neoplasm Malignant Adenocarcinoma, Osteopenia, Benign Prostatic Hypertrophy, Difficulty Breathing (Dyspnea) followup Abdi Mcnulty PA-C [facility] 0 12:29PM 1:10PM Hyponatremia, Lung Neoplasm Malignant Ad enocarcinoma Transitional Care Management HIGH complexity Abdi Mcnulty PA-C [facility] 10/25/2019 12:12PM 1:30PM Hyponatremia TCMNV phone call- NO CHARGE [facility] 10/21/2019 08/09/2019 12:09PM 08/09/2019 11:59PM Insurance Includes: Active Insurance Policies Plan Name Member ID Group # Subscriber Relationship Effective Da adeel 1 - Medicare ([facility]) [id number] Pablo A Ogborn Self 2 - [employer] [employer] [id number] D onald A Ogborn Self Advance Directives Includes: Current Advance DirectivesNo Advance Directives Recorded Health Concerns Includes: Active Health ConcernsNo Active Health Concerns Recorded Goals Includes: Active GoalsNo Active Goals Recorded Interventions Includes: Interventions for active GoalsNo Interventions Recorded Evaluations & Outcomes Includes: Evaluations & Outcomes for active GoalsNo Outcomes Recorded
--- OUTSIDE RECORDS SUMMARY | 2020-11-05 16:05 | CCD ---
Author Author [facility] Organization [facility] Address [address] [place] [address] Phone Care Team Providers Care Obstetrics Technician Name Role Phone Nandini KIRKLAND, Joshua De La Torre Unavailable Unavailable Jose KIRKLAND, Colt Pedersen Unavailable Unavailable Anival KIRKLAND, Jyoti Valencia Unavailable Unavailable Ankit KIRKLAND, Rody James PP [phone] 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 Has stable ground glass opacity lung nodules since 2010, last CT 12-02. 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 in 08-05 with mets to T2 and mediastinal adenopathy Nephrolithiasis 08/16/2015 - 12:00AM Lorrie ALMANZAR -BC Active Note: remote Carotid Artery Stenosis 08/16/2015 - 12:00AM Lorrie ALMANZAR-BC Active Note: carotid ultraound-mode rate 16-49% yojana narrowing - Rhinitis 08/16/2015 - 12:00AM Lorrie GEORGEBC Active Note: with eating, started A trovent nasal spray in 08-02 Rosacea 08/16/2015 - 12:00AM Lorrie ALMANZAR-BC Active Note: uses metronidazole cre am Plan of Treatment Pending Tests Order Diagnosis Results Due Ordering Provi robert Outside Labs CMP Hypo-osmolality and hyponatremia 11/01/19 Abdi Mcnulty PA-C Referral Museum Assistant Unspecified right bundle-branch block Abdi Mcnulty PA-C Care Programs Accountable Care Organizations Future Appointments Date Time Location Provider followup 08/21/2020 1:00PM BENITA Bradford PA-C Annual Wellness SUBSEQUENT visi t(> 1yr since prev. 0 1:00PM BENITA Bradford PA-C Future Tests Order Diagnosis Results Due Ordering Provid er Lab CBC 02/05/20 Abdi Mcnulty PA-C Lab CMP 02/05/20 Abdi Mcnulty PA-C Findings Encounter Date Aspirin to be held [...] for all patient encounters Findings Encounter Date Benign prostatic hypertrophy with obstr uction per [...] currently having treatments q 3 weeks at [facility] and is having a very good experience. Cancer is improving and he is feeling well on treatment followup with Abdi Mcnulty PA-C 08/09/2019 Assessment of xerostomia , uses biotin followup with Abdi avitia PA-C 08/09/2019 Benign prostatic hypertrophy , stable on flomax followup wit h Abdi MATA-C 08/09/2019 Bile-induced gastritis , stable with sucralfate followup wit h Abdi AMTA-C 08/09/2019 Colonic diverticulosis , stable followup with Abdi MATA- C 08/09/2019 Gout , no recent problems followup with Abdi MATA-C 07/20 Hyponatremia , stable followup with Abdi MATA-C 08/09/20 19 No tobacco use . quit smoking in 1999 Annual Welln ess SUBSEQUENT visi t(> 1yr since prev. 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 Delatorre followup with [facility] 02/08/2019 Carotid artery stenosis -ultrasound 4-1 9, less than 50%, no significant stenosis, unchanged in past 2 years followup with [facility] 02/08/2019 Hyponatremia Sodium level is 123 , this is usual baseline, may be related to cancer diagnosis followup with [facility] 02/08/2019 Neuropathy thought possibly related to chemotherapy or diabetes, has seen in the past, not believed to be vascular in origin followup with [facility] 02/08/2019 Osteopenia Vitamin D level is 40, DEXA worse in 2014, he took 1 dose of prolia, was intolerant and reluctant to try other medications. 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 Delatorre, last balloon dilatation for stricture was 10/03, initial diagnosis 2007 followup with [facility] 02/08/2019 Type 2 diabetes mellitus - uncomplicated , controlled by diet Hemoglobin A1c currently is 6.0- followup with [facility] 02/08/2019 Pulmonary metastases Refer to thoracic surgery [...] CT 2013, was negative [facility] Aortic aneurysm Was found on Medicare w ellness visit, distal aorta 3.3 cm 09/03 . 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 Delatorre, having more diarrhea, consider questran [facility]2018 Carotid artery stenosis Completed 09/04 , less than 50%, no significant stenosis [facility]/09/2018 Hyponatremia Sodium level is 131 , he d oes not take a diuretic , he does limit water intake, tries to drink tea, Gatorade mixed with water, etc [facility] 02/09/2018 Neuropathy thought possibly related to chemotherapy or diabetes, has seen in the past, not believed to be vascular in origin [facility]/09/2018 Osteopenia Vitamin D level is 35, recen t DeXA is worsening, he took 1 dose of proliia, indicates he cannot tolerate it. 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 Delatorre, last balloon dilatation was 10/03, initial diagnosis 2007 followup with Lorrie [facility] 02/09/2018 Type 2 diabetes mellitus - uncomplicated , controlled by diet Hemoglobin A1c currently is 6.3-, he has lost 3 pounds over the past year followup with Lorrie [facility] 02/09/2018 Adenocarcinoma of the lung Last CT 2013, was negative followup with [facility] 08/18/2017 Aortic aneurysm Was found on Medicare w ellness visit, 3.3 cm in 09/03 Will repeat followup with Lorrie [facility] 08/18/2017 Bile-induced gastritis Patient having m ore symptoms, has seen Dr. Delatorre, barium swallow was done 12/04, no evidence of neoplasm or stenosis followup with [facility] 08/18/2017 Carotid artery stenosis Completed 09/03, no hemodynam ic stenosis-will recheck followup with [facility] 08/18/2017 Hyponatremia Sodium level is 127 , he d oes not take a diuretic , he does limit water intake, tries to drink tea, Gatorade mixed with water, etc followup with [place] [facility] 08/18/2017 Neuropathy Was seen by Dr. Pagan in 02/16 6, did not believe neuropathy had a vascular component, thought possibly related to chemotherapy or diabetes followup with [facility] 08/18/2017 Osteopenia Vitamin D level is 41, has d ecreased from 55, states he recently restarted vitamin D after taking a holiday over the summer , patient is due for DEXA followup with [facility] 08/18/2017 Squamous cell carcinoma of the esophagus -Esophagram completed in 12/04 with no evidence of esophagitis or neoplasm, Dr. Delatorre, last balloon dilatation was 10/03 followup with Lorrie [facility] 08/18/2017 Type 2 diabetes mellitus - uncomplicated , controlled by diet Hemoglobin A1c currently is 5.7-, he has lost 3 pounds over the past year followup with Lorrie GEORGE 08/18/2017 No tobacco use Annual Wellness SUBSEQUEN T visi t(> 1yr since prev. with Lorrie [facility] [place] [facility] 08/18/2017 Routine senior citizen history [...] will retrieve that report [facility]/12/2016 Carotid artery stenosis I'm unable to find report sin ce 2012, will research follow[facility] 08/12/2016 Hyponatremia Sodium level has improved to 131, he does limit water intake, tries to drink tea, Gatorade mixed with water, etc [facility] 08/12/2016 Neuropathy Was seen by Dr. Pagan in 02/16 6, did not believe neuropathy had a vascular component, thought possibly related to chemotherapy or diabetes follow[facility] 08/12/2016 Osteopenia Vitamin D level is 55, recommendation was to be greater than 50 followup with Lorrie Mcnulty [facility] 08/12/2016 Squamous cell carcinoma of the esophagus -Esophagram completed in 12/04 with no evidence of esophagitis or neoplasm, Dr. Delatorre followup with Lorrie GEORGE 08/12/2016 Type 2 diabetes mellitus - uncomplicated, controlled b y diet followup with Lorrie GEORGE 08/12/2016 No tobacco use Annual Wellness SUBSEQUEN T visi t(> 1yr since prev. with Lorrie [facility] 08/12/2016 Routine senior citizen history and physical (65-80 yrs ) Annual Wellness SUBSEQUENT visi t(> 1yr since prev. 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 Symptoms have improved, not certain he is taking carafate as suggested followup with [facility] 02/14/2016 Carotid artery stenosis last carotid ul trasound was in 2012 with 16-49% stenosis, slight increase since 2005, had neurology workup for TIA symptoms 2012, now on aspirin 325 mg followup with [facility] 02/14/2016 Hyponatremia Na+ level is 126 today, un certain of cause. will limit water intake to 1000 cc per day, other fluids should be gatorade, tea, juice of soda, recheck BMP, obtain urine osmolality.urine sodium and chloride levels, TSH and free T4 in 1 week followup with [facility] 02/14/2016 Intermittent claudication and tingling of feet developed over winter months, will refer to Dr Nogueira followup with [facility] 02/14/2016 Neuropathy -is worsening, will start ga bapentin at 100mg daily and increase depending on improvement of symptom followup with [facility] 02/14/2016 Osteopenia vitamin D level is now at 55 , last DEXA 09/02, is walking more with warm weather followup with [facility] 02/14/2016 Squamous cell carcinoma of the esophagus -has passed 5yr survival, now follows with Dr Delatorre, plans next EGD in 2019 unless symptoms followup with [facility] 02/14/2016 Type 2 diabetes mellitus - uncomplicated, controlled b y diet -[facility] is 6.1 [facility]/14/2016 Anosmia -continues to take zinc which h as not really helped this symptom which was first noted in 2010, may stop new patient [facility] 08/16/2015 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 Having increased difficulty with balance after taking Reglan, and will discontinue Reglan for now. He developed increased GI symptoms after Reglan stopped in 2012, monitor closely, pt to call if symptoms worsen [facility] 08/16/2015 Hypertension -well controlled without meds since weig ht loss in 2007 new patient with Lorrie Mcnulty [facility] 08/16/2015 Normal routine history and physical adonis or citizen (65-80) -new patient to this office [not annual appointment] [facility] 08/16/2015 Osteopenia -increased osteopenia in 201 3, will recheck DEXA and vitamin D level new patient [facility] 08/16/2015 Rhinitis is profuse and occurs with eating, will try atrovent nasal spray [facility] 08/16/2015 Squamous cell carcinoma of the esophagus -no longer follows with Dr Adhikari in [place] after 5 yr survival [2-14], last seen in fall 2013 [facility] 08/16/2015 Type 2 diabetes mellitus - uncomplicated , 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 patient [facility] 08/16/2015 Instructions Instructions not supported for this [...] Tablet 02/08/2019 - 08/09/2019 Provider : Lorrie GEORGEBC Diagnosis: 1 PO QD Flonase Allergy Relief [...] Tablet 02/09/2018 - 02/08/2019 Provider : Lorrie ALMANZAR-BC Diagnosis: 1 PO QD Finasteride 5MG Oral Tablet 02/08/2018 - 02/09/2018 Provider : Rambo Macario MD Diagnosis: 1 PO QD Prolia 60MG/ML Subcutaneous Solution 10/06/2017 - 02/09/2018 Provider: Lorrie ALMANZAR-BC Diagnosis: injection q6 months, started 10-06-17 Sucralfate 1GM Oral Tablet 08/18/2017 - 08/13/2018 Provider: Lorrie ALMANZAR-BC Diagnosis: Gastritis, unspecifi ed, without bleeding 1 tab before meals Metoclopramide HCl 10MG Oral Tablet 08/18/2017 - 02/09/2018 Provider: Lorrie ALMANZAR-BC Diagnosis: Other specified dise ases of esophagus Take 1 tab before each meal as needed Finasteride 5 MG Tablet 02/10/2017 - 10/06/2017 Provider: Rambo Macario MD Diagnosis: 1 PO QD Flomax 0.4 MG Capsule 02/10/2017 - 10/06/2017 Provider: Rambo Macario MD Diagnosis: 1 PO BID Sucralfate 1 GM Tablet 09/08/2016 - 08/18/2017 Provider: Lorrie Mcnulty [facility] Diagnosis: 1 tab before meals Omeprazole 40 MG Capsule Delayed Release 08/12/2016 - 2017 Provider: Lorrie Mcnulty [facility] Diagnosis: Other specified dise ases of esophagus Take 1 tab before evening meal Aspirin 325 MG Tablet 08/12/2016 - 08/09/2019 Provider: Lorrie Mcnulty [facility] Diagnosis: 1 PO QD Gabapentin 100 MG Capsule 08/12/2016 - 08/18/2017 Provider: Lorrie Mcnulty [facility] Diagnosis: Other specified poly neuropathies 1 tab at bedtime for 3 days then increas e to 1 tab every 12 hrs, in 7 d continued sx increase 1 tab 3 times a day Carafate 1 GM Tablet 08/12/2016 - 09/08/2016 Provider: Lorrie Mcnulty [facility] Diagnosis: 1 tab before meals Metoclopramide HCl 10 MG Tablet 08/12/2016 - 08/18/2017 Prov ider: Lorrie Mcnulty [facility] Diagnosis: Other specified dise ases of esophagus Take 1 tab before each meal Carafate 1 GM Tablet 02/15/2016 - 08/12/2016 Provider: Lorrie Mcnulty [facility] Diagnosis: [address] Delatorre Gabapentin 100 MG Capsule 02/14/2016 - 08/12/2016 Provider: Lorrie Mcnulty [facility] Diagnosis: 1 tab at bedtime for 3 days then increas e to 1 tab every 12 hrs, in 7 d continued sx increase 1 tab 3 times a day Flomax 0.4 MG Capsule 02/14/2016 - 02/10/2017 Provider: Lorrie Mcnulty [facility] Diagnosis: 1 tab twice daily [facility] Zinc 50 MG Tablet 08/17/2015 - 08/12/2016 Provider: Diagnosis: Magnesium 400 MG Capsule, conventional 08/17/2015 - 08/12/20 16 Provider: Diagnosis: for leg cramps EQ Complete Multivitamin-Adult Tablet 08/17/2015 - 02/09/201 8 Provider: Diagnosis: Aspirin 81 MG Tablet 08/17/2015 - 08/12/2016 Provider: Diagnosis: Reglan 10 MG Tablet 08/16/2015 - 08/12/2016 Provider: Lorrie Mcnulty ANP- Diagnosis: Take 1 tab before each meal and at bedtime Omeprazole 40 MG Capsule, delayed-release 08/16/2015 - 08/12 Provider: Lorrie Mcnulty ANP- Diagnosis: Take 1 tab before evening meal Flomax 0.4 MG Capsule, conventional 08/16/2015 - 02/14/2016 Provider: Lorrie Mcnulty ANP- Diagnosis: 1 tab twice daily Atrovent 0.03 % Solution 08/16/2015 - 08/12/2016 Provider: Lorrie Mcnulty ANP- Diagnosis: instill 2 sprays each nostril once daily Medications Administered Includes: Administered Medications in patient's chartNo Administered Medications Recorded Vital Signs Includes: Vital Signs from 08/16/2019 through 08/16/2020 Vital Name 06/19/2020 11:03A 02/10/2020 03:40P 11/29/2019 12:32P 10/25/2019 12:28P Blood Pressure Sitting (mmHg) 136/60 141/76 152/70 Pulse Rate-Sitting (bpm) 74 71 72 80 Respiration Rate (breaths/min) 24 24 20 Height (in) 65.75 65.75 65.75 65.75 Weight (lb) 135 129 127 Body Mass Index (kg/m2) 22.0 21.0 20.7 Body Surface Area (m2) 1.69 1.66 1.64 Blood Pressure Sitting L 126 /68 BP Cuff Size Regular Results Includes: Results from 08/16/2019 through 08/16/2020 CORONAVIRUS COVID-19 [facility] Ordered by Abdi Mcnulty PA-C on 05/07/2020 Collected: 05/07/2020 Reported: 05/09/2020 14:09 SARS-CoV-2, MELODIE Not Detected (Not Detected) None Note: This test was developed and its pe rformance characteristics determinedby [employer]. This test has not been FDA cleared [...] are final unless otherwise noted. Reported Physicians [facility] Ordered by Abdi Mcnulty PA-C on 05/07/2020 Collected: 05/07/2020 Reported: 05/09/2020 14:09 Reported Physicians See Note None Note: Reported Physicians:Ordering: HELIO JOVELAttending: MAURA GLASSonsulting: Mariama PHAM To: Helio Glass Reviewed by Abdi Mcnulty PA-C on 0; All test results are final unless otherwise noted. CMP [facility] Ordered by Abdi Mcnulty PA-C on 11/29/2019 [address] [place], [address] Collected: 11/29/2019 Reported: 11/29/2019 15:53 tel : [...] final unless otherwise noted. BASIC METABOLIC PANEL [facility] Ordered by Rody Pham MD [...] are final unless otherwise noted. Reported Physicians [facility] Ordered by Rody Pham MD on 10/19/2019 Collected: 10/19/2019 Reported: 10/19/2019 07:57 Reported Physicians See Note None Note: Reported Physicians:Ordering: EVELYN STONE AAttending: VINCENT ISSAConsulting: Mariama PHAM To: Tong Xavier To: VINCENT ISSA Reviewed by Rody Pham MD on 10/24; All test results are final unless otherwise noted. CBC W/AUTOMATED DIFF [facility] Ordered by Rody Pham MD [...] are final unless otherwise noted. Reported Physicians [facility] Ordered by Rody Pham MD on 10/19/2019 Collected: 10/19/2019 Reported: 10/19/2019 07:26 Reported Physicians See Note None Note: Reported Physicians:Ordering: EVELYN STONE AAttending: VINCENT ISSAConsulting: Mariama PHAM To: Tong Xavier To: VINCENT ISSA Reviewed by Rody Pham MD on 10/24; All test results are final unless otherwise noted. COMPREHENSIVE METABOLIC PANEL [facility] Ordered by Jenny Brown [...] - 1.5) None Note: Responsible Observer: () GLOBULIN 2.3 GM/DL (2.4 - 3.2) L (Low) Note: Responsible Observer: () GLUCOSE 165 MG/DL (65 - 110) H (High) Note: Responsible Observer: () NON-AA GFR >60 mL/min None Note: Responsible Observer: () POTASSIUM 4.0 mEq/L (3.6 - 5.0) None [...] are final unless otherwise noted. Reported Physicians [facility] Ordered by Jenny Brown RPA on 10/18/2019 Collected: 10/18/2019 Reported: 10/18/2019 11:59 Reported Physicians See Note None Note: Reported Physicians:Ordering: DK HANNON: VINCENT ISSAConsulting: PABLITO PHAMHRYNCopy To: Alanis CABRERA To: VINCENT ISSA Reviewed by Jenny Brown RPA on 10/21; All test results are final unless otherwise noted. CBC NO DIFF [facility] Ordered by Jenny Brown [facility] on 10/18/2019 Collected: 10/18/2019 Reported: 10/18/2019 10:30 [...] Responsible Observer: (BLD) Reviewed by Jenny Brown [facility] on 10/21; All test results are final unless otherwise noted. Reported Physicians [facility] Ordered by [facility] on 10/18/2019 Collected: 10/18/2019 Reported: 10/18/2019 10:30 Reported Physicians See Note None Note: Reported Physicians:Ordering: DK HANNON: VINCENT ISSAConsulting: Mariama PHAM To: Alanis CABRERA To: VINCENT ISSA Reviewed by Jenny Brown [facility] on 10/21; All test results are final unless otherwise noted. BASIC METABOLIC PANEL [facility] Ordered by Jenny Brown RPA [...] are final unless otherwise noted. Reported Physicians [facility] Ordered by Jenny Brown RPA on 10/17/2019 Collected: 10/17/2019 Reported: 10/17/2019 08:45 Reported Physicians See Note None Note: Reported Physicians:Ordering: EVELYN STONE AAttending: VINCENT ISSAConsulting: RODY PHAMCopladarius To: Evelyn XavierCopladarius To: VINCENT ISSA Reviewed by Jenny Brown RPA on 10/17; All test results are final unless otherwise noted. COMPREHENSIVE METABOLIC PANEL [facility] Ordered by Rody Pham MD on [...] are final unless otherwise noted. Reported Physicians [facility] Ordered by Rody Pham MD on 10/14/2019 Collected: 10/14/2019 Reported: 10/14/2019 06:53 Reported Physicians See Note None Note: Reported Physicians:Ordering: VINCENT VALDEZding: VINCENT ISSAConsulting: Mariama PHAM To: VINCENT ISSA Reviewed by Rody Pham MD on 10/14; All test results are final unless otherwise noted. CBC W/AUTOMATED DIFF [facility] Ordered by Rody Pham MD [...] are final unless otherwise noted. 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 Procedures and Surgical History Includes: Procedures from 08/16/2019 through 08/16/2020 Procedures Code Diagnosis Performing Provider Service Location Service Date EKG- Electrocardiogram/12 lead 51758 Malignant neoplasm of unsp part of right bronchus or lung, Pure hyperglyceridemia Abdi Mcnulty PA-C [facility], [facility] 07/12/2020 EKG- Electrocardiogram/12 lead ([facility] service- ) [id number] Encounter for preprocedural cardiovascular examination, Malignant neoplasm of unsp part of right bronchus or lung, Pure hyperglyceridemia Abdi Mcnulty PA-C [facility], [facility] 06/19/2020 CMP-Complete Metabolic Profile [id number] Hypo-osmolality a nd hyponatremia Abdi Mcnulty PA-C [facility], [facility] 11/29/2019 Venipuncture (routine) 64241 Hypo-osmolality and [facility]atremi a [facility] 11/29/2019 no charge procedure [place] Hypo-osmolality and [facility]onat[facility] 10/25/2019 Surgical History Last Updated Surgical / procedural history Tonsillec sebas 194; Removal right parotid gland stone in ; left herniorrhaphy 02-18; Assisted HOWARD-Lionel esophagectomy for SCC 12-21-2007; Repair of esophagogastric anastomosis leak with redo thoracotomy and debridement of anastomosis and ligation of thoracic duct; Dilatation esophagus in 2007 and -2015, EGD in 05-0202/17/2019 Medical History Includes: Medical History in patient's chart Description Last Updated History of colonoscopy 05/03/2015 08/09/2019 Health care proxy on file If no HCP in chart the pt was given our informational handout and FAQ sheet along with a blank HCP form to be brought back at the next visit. All questions answered 08/13/2018 A recent immunization for flu 08/13/2018 Colonoscopy 05/03/2015 08/18/2017 Family History Includes: Family History in patient's [...] 1 08/16/2015 Right Arm Complete (A dministered) [facility] Fluzone High Dose 2 08/12/2016 Left Deltoid Complete (Administered) [facility] Note: VIS Given Fluzone High Dose 3 08/18/2017 Left Deltoid Complete (Administered) [facility] Fluzone High Dose 4 08/04/2018 Complete (Reported) Patient Fluzone High Dose 5 06/07/2020 Complete (Reported) Patient PCV (Pneumovax 23) 1 11/19/2004 Complete (Reported ) Patient [id number] 1 08/16/2015 Right Arm Complete (Administe red) [facility] Note: VIS Given Tdap (> 7 yrs) 1 08/16/2015 Left Arm Complete (Admi nistered) [facility] Allergies Includes: Active, inactive, and resolved Allergies Substance Type Reaction Onset Date - Time Resolved Date - Ti me Status Prolia Intolerance 03/16/2018 - 12:00AM Act juan j Note: increased muscle pain Latex Allergy 08/17/2015 - 12:00AM Acti ve Encounters Includes: Encounters from 08/16/2019 through 08/16/2020 Encounter Provider Location Date Check-In Time Check-Out Time D iagnosis electrocardiogram Abdi Mcnulty PA-C [facility] 07/12/2020 10:31AM 11:16AM Benign Prostatic Hypertrophy , Bundle Branch Block Right Pre-op consult for surgery [facility] 10:58AM 11:26AM Benign Prostatic Hyp ertrophy, Working Diagnosis of Visit For: Preoperative Exam, Hyponatremia telephone conversation Rody Pham MD [facility] Diana parker, [facility] 02/10/2020 2:49PM 3:43PM Hyponatremia, Large Intestine Neoplasm, Benign - Adenomatous Polyp, Lung Neoplasm Malignant Adenocarcinoma, Osteopenia, Benign Prostatic Hypertrophy, Difficulty Breathing (Dyspnea) followup Abdi Mcnulty PA-C [facility], [facility] 0 12:29PM 1:10PM Hyponatremia, Lung Neoplasm Malignant Ad enocarcinoma Transitional Care Management HIGH complexity Abdi Mcnulty PA-C [facility], [facility] 10/25/2019 12:12PM 1:30PM Hyponatremia TCMNV phone call- NO CHARGE Abdiladarius MATAMary [facility] 10/21/2019 08/09/2019 12:09PM 08/09/2019 11:59PM Insurance Includes: Active Insurance Policies Plan Name Member ID Group # Subscriber Relationship Effective Da adeel 1 - Medicare ([facility]) [id number] Pablo Blum Self 2 - [employer] [id number] D monica Navarrete Advance Directives Includes: Current Advance DirectivesNo Advance Directives Recorded Health Concerns Includes: Active Health ConcernsNo Active Health Concerns Recorded Goals Includes: Active GoalsNo Active Goals Recorded Interventions Includes: Interventions for active GoalsNo Interventions Recorded Evaluations & Outcomes Includes: Evaluations & Outcomes for active GoalsNo Outcomes Recorded
--- OUTSIDE RECORDS SUMMARY | 2020-11-05 16:06 | CCD | Continuity of Care Document ---
Author Author Pablo DELATORRE MD Organization Unknown Address [address] [place] [address] Phone [phone] Care Team Providers Care Ui Developer With [employer] Name Role Phone Lorrie Mcnulty AUTM [phone] AUTM Unavailable Rody Alvarez M.D. AUTM [phone] Problems Active Problems Provider Date Sensory function status: taste and smell Justin Love MD Onset: 05/16/2013 Disturbance of salivary secretion Justin Love MD Onset: 05/16/2013 Esophageal dysphagia Justin Love MD Onset: 05/16/2013 Allergic rhinitis due to pollen Justin Love MD Onset: 0 05/16/2013 Chronic rhinitis Aristides Santos II, PA-C Onset: 11/10/2014 Head and neck swelling Aristides Santos II, PA-C Onset: 11/10/19 15 Social History Type Date Description Comments Sex Unknown Tobacco Use Start: Unknown End: Unknown Quit ETOH Use 1-2 A Day beer Recreational Drug Use Denies Drug Use Tobacco Use Start: 10/19/56 End: 10/19/99 Patient is a forme r smoker 1 ppd x's 43 years Smoking Status Reviewed: 06/11/20 Patient is a former smoker 1 ppd x's 43 years Allergies, Adverse Reactions, Alerts Active Allergies Reaction Severity Comments Date Latex 03/07/2013 Medications Active Medications SIG Qnty Indications Ordering Provide r Date Ipratropium [place]/Albuterol Sulfate 0.5-2.5(3)mg/3ML Solution Use 1 Vial Via Nebulizer 4 Times A Day 360ml J47.9 Brenda Hernandez M.D. 02/27/2020 J43.9 Vitamin B12 1000mcg Tablets ER 1 by mouth every day Unknown Levetiracetam 500mg Tablets 1 by mouth every day Unknown Famotidine 40mg Tablets 1 by mouth once a day Unknown Sodium Chloride Powder 1 tab by mouth four times a day Unknown Loratadine 10mg Capsules 1 tab by mouth every day 90caps Unknown Fluticasone Propionate Nasal [place] 24- H our 50mcg/Act Suspension 2 sprays each nostril every day at bedtime Unknown Ventolin HFA 108(90Base) mcg/Act A erosol 2 puffs qid/prn 18gm Unknown Finasteride 5mg Tablets 1 tab by mouth every day Unknown Keytruda 100mg/4ML Solution [id number] for Left Lung Cancer Unknown Carafate 1gm Tablets 1 tab by mouth before meals and at bedtime Unknown Aspirin 81mg Tablets DR 1 tab by mouth every day Unknown Gabapentin 100mg Capsules 2 caps by mouth every night 90caps Unknown Vitamin D-3 2000Unit Tablets 2 tab by mouth every day 4tabs Unknown Tamsulosin HCL 0.4mg Capsules 1 cap by mouth twice a day 90caps Unknown History Medications Anoro Ellipta 62.5-25mcg/Inh Aeros ol 1 puff inhaled every day 60units J84.10 Brenda Hernandez M.D. 05/20 - 07/24/2020 Bevespi Aerosphere 9-4.8mcg/Act Ae rosol 2 puffs by mouth twice a day 10.700gm J47.Brenda Fuentes M.D. 05/16/2020 - 06/11/2020 J84.10 J43.9 Yupelri 175mcg/3ML Solution 1 vial via nebulizer once a day 180ml J43Brenda Cheatham M.D. 2019 - 04/16/2020 Yupelri 175mcg/3ML Solution use 1 vial via nebulizer once a day 180ml J47Brenda Cheatham M.D. 2019 - 05/16/2020 J84.10 J43.9 Stiolto Respimat 2.5-2.5mcg/Act Ae rosol 2 puffs once daily 4gm Brenda Cordero M.D. 02/27/2020 - 02/27/2020 Ipratropium [place]/Albuterol Sulfate 0.5-2.5(3)mg/3ML Solution 1 vial three to four times a day 360ml Brenda Culver M.D. 02/27/2020 - 02/27/2020 Anoro Ellipta 62.5-25mcg/Inh Aeros ol 1 puff inhaled every day 60units Brenda Cordero M.D. 04/2020 - 02/27/2020 Immunizations Description No Information Available Vital Signs Date Vital Result Comment 07/25/2020 1:30pm BP Systolic 132 mmHg BP Diastolic 72 mmHg Height 68 inches 5'8" Weight 133.25 lb BMI (Body Mass Index) 20.3 kg/m2 [place] Body Weight 154 lb Weight 60.442 kg 06/11/2020 10:06am BP Systolic 130 mmHg BP Diastolic 80 mmHg Heart Rate 102 /min O2 % BldC Oximetry 100 % Body Temperature 97.9 F Height 68 inches 5'8" Weight 134.00 lb BMI (Body Mass Index) 20.4 kg/m2 [place] Body Weight 154 lb Weight 60.782 kg Results Test Acquired Date Facility Test Result H/L Range Note Interstitial Lung Disease Pane 02/23/2020 [facility] [address] [place] [address] [phone] Erythrocyte Sedimentation Rate 6 mm/hr Normal 0 -20 Angiotensin 1 Converting Enzym 44 U/L Normal 14-82 Rheumatoid Factor Quant < 10.0 IU/mL Normal <15.0 C Reactive Protein Quantitativ < 0.30 mg/dL Normal 0.00-0.30 Cyclic Citrullinated Peptide 10 units Normal 0-19 1 Antinuclear Antibodies 02/23/2020 [facility] [address] [place] [address] [phone] Antinuclear Antibodies Direct Negative Normal Ne gative Sjogren's Anti SS-A <0.2 AI Normal 0.0-0.9 Sjogren's Anti SS-B <0.2 AI Normal 0.0-0.9 Anti-Neutrophil Cytoplasmic AB 02/23/2020 [facility] [address] [place] [address] [phone] Cytoplasmic Neutrop AB Anca-C <1:20 titer Normal N eg:<1:20 Perinuclear AB Anca-P <1:20 titer Normal Neg:<1:20 2 Anca-Atypical <1:20 titer Normal Neg:<1:20 3 Hypersensitivity Pneumonitis 02/23/2020 [facility] [address] [place] [address] [phone] Aspergillus Fumigatus AB Negative Normal Negativ e Aureobasidium [place] Negative Normal Negative Micropolyspora Faeni AB Negative Normal Negative [place] Serum AB Negative Normal Negative 4 Thermoactinomyces Sacchari Negative Normal Negative Thermoactinomyces Vulgaris Negative Normal Negative FVL/[place] 02/23/2020 [employer] PDFReport SEE IMAGE FVC-Pred 3.57 L FVC-Pre 2.73 L FVC-%Pred-Pre 76 L FVC-LLN 2.69 L Fev1-Pred 2.49 L Fev1-Pre 1.95 L Fev1-%Pred-Pre 78 L Fev1-LLN 1.75 L Fev6-Pred 3.30 L Fev6-Pre 2.73 L Fev6-%Pred-Pre 82 L Fev6-LLN 2.44 L Zkv3leg-Qmqm 71 % Hmq1seh-Jmp 71 % Dwg7vrx-%Pred-Pre 100 % Dpr4nlo-NJN 61 % Yyr6env-Gove 93 % Nqr2ucl-Njf 100 % Yey1ejk-%Pred-Pre 108 % FEFMax-Pred 6.40 L/E/sec FEFMax-Pre 3.68 L/E/sec FEFMax-%Pred-Pre 57 L/E/sec FEFMax-LLN 4.21 L/E/sec Pvl8374-Apcs 1.64 L/E/sec Srj5971-Gln 1.38 L/E/sec Lua1716-%Pred-Pre 84 L/E/sec Shg6056-RTS 0.13 L/E/sec ExpTime-Pre 5.52 sec Knk8voi6-Ytgv 76 % Dzc3twz4-Goe 71 % Cbe7cpg7-%Pred-Pre 94 % Clx4nlm9-BZC 67 % 1 Negative <20 Weak positive 20 - 39 Moderate positive 40 - 59 Strong positive >59 2 The presence of positive flu orescence exhibiting P-ANCA or C-ANCA patterns alone is not specific for the diagnosis of Roberta's Granulomatosis (WG) or microscopic polyangiitis. Decisions about treatment should not be based solely on ANCA IFA results. The International ANCA Group Consensus recommends follow up testing of positive sera with both W[place]- 3 and MPO-ANCA enzyme immunoassays. As m any as 5% serum samples are positive only by EIA. Ref. AM J Clin Pathol 1999;111:507-513. 3 The atypical pANCA pattern h as been observed in a significant percentage of patients with ulcerative colitis, primary sclerosing cholangitis and autoimmune hepatitis. 4 Performed at: [facility] [id number] Track Supervisor: Srikanth Boyce MD, Phone: [phone] Performed at: [facility] [id number] Track Supervisor: Fouzia Zavala MD, Phone: [phone] Procedures Date Code Description Status 06/11/2020 81588 Aerosol Or Vapor Inhalations Com pleted 06/11/2020 67529 Spirometry Completed 04/16/2020 30116 Diffusing Capacity Completed 04/16/2020 19194 Plethysmography Determination Charu ng Volumes & Per Airway Resist Completed 04/16/2020 55756 Maximum Breathing Capacity, Maxi mal Voluntary Ventilation Completed 04/16/2020 53293 Bronchospasm Evaluation Complete d 02/23/2020 05470 Aerosol Or Vapor Inhalations Com pleted 02/23/2020 59859 Spirometry Completed Medical Devices Description No Information Available Encounters Type Date Location Provider Dx Diagnosis Office Visit 06/11/2020 10:30a [facility] Brenda Wolff M.D. 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 06/11/2020 C77.1 Secondary and unspec ified malignant neoplasm of intrathoracic lymph nodes Brenda Hernandez M.D. 06/11/2020 J47.9 Bronchiectasis, uncomplicated Brenda Perkins M.D. 06/11/2020 J43.9 Emphysema, unspecified Rosalinda Hernandez M.D. 06/11/2020 R09.02 Hypoxemia Brenda Hernandez M.D. 04/16/2020 J84.10 Pulmonary fibrosis, unspecified Pulmonary Lab 04/16/2020 C77.1 Secondary and unspec ified malignant neoplasm of intrathoracic lymph nodes Brenda Hernandez M.D. 04/16/2020 J47.9 Bronchiectasis, uncomplicated Brenda Perkins M.D. 04/16/2020 J84.10 Pulmonary fibrosis, unspecified Brenda Hernandez M.D. 04/16/2020 J43.9 Emphysema, unspecified Rosalinda Hernandez M.D. 04/16/2020 R09.02 Hypoxemia Brenda Hernandez M.D. 02/23/2020 C77.1 Secondary and unspec ified malignant neoplasm of intrathoracic lymph nodes Brenda Hernandez M.D. 02/23/2020 J47.9 Bronchiectasis, uncomplicated Brenda Perkins M.D. 02/23/2020 J84.10 Pulmonary fibrosis, unspecified Brenda Hernandez M.D. 02/23/2020 J43.9 Emphysema, unspecified Rosalinda Hernandez M.D. 02/23/2020 R09.02 Hypoxemia Brenda Hernandez M.D. Plan of Treatment Future Appointment(s):* 09/18/2020 10:00 am - Pulmonary Lab at [facility] Pulmonary/Thoracic * 09/18/2020 11:00 am - Brenda Hernandez M.D. at [facility] Pulmonary/Thoracic 07/25/2020 - Joshua Delatorre JR, MD* R10.11 Right upper quadrant pain* Comments: * Patient has some right upper quadrant pain but is not really right upper quadrant pain is really right rib pain is almost costochondritis type pain but given his see previous surgery and previous malignancy most likely this is either pleuritic type chest pain metastatic disease to the chest wall or even possibly to the ribs in this area my recommendation at this time as there is no general surgical issues. And the gallbladder issues are not related to this pain that is a persistent type pain or pain not associated with movement. He does not have any fatty food intolerance no acholic stools no bilirubinuria. * R93.2 Abnormal findings on diagnostic imaging of liver and biliary tract* Comments:* Patient has a few things that are noticed on the CAT scan one is a possibly dilated common bile duct although it's very mild they don't see any intra-biliary duct abnormalities i.e. no stones there not seeing any masses in the head of the pancreas suggesting that this is partially obstructive nor has he reportedly had any significant liver function test abnormalities more importantly the gallbladder wall has minimal thickening and that may be the "shadowing that was described earlier. A from his standpoint he has no evidence of biliary colic no evidence of cholecystitis. Once again from his overall standpoint I do feel that he has some issues which may need to be evaluated and dressed in the future however given his overall other medical issues/prognosis issues I do feel that this is lower down on the list of priorities. If he develops any right upper quadrant pain discomfort or fatty food intolerance I would be glad to reevaluate him. He understands and will contact our office if he is having any questions or concerns. Functional Status Functional Condition Comment Date Status Independent with all ADL's Activ e Independent with all IADL's Acti ve Mental Status Mental Condition Comment Date Status None Active Referrals Refer to Reason for Referral Status Appt Date Nandini GALVAN, Joshua De La Torre MD Created [address] [address] [phone]
--- OUTSIDE RECORDS SUMMARY | 2020-11-05 16:06 | CCD | Continuity of Care Document ---
Author Author Pablo YE MD Organization Unknown Address [address] [place] [address] Phone [phone] Care Team Providers Care Jordan Man Name Role Phone Abdi Mcnulty AUTM [phone] Colt Garcia MD AUTM [phone] Problems Description No Information Available Social History Type Date Description Comments Sex Unknown ETOH Use Consumes 1-2 beers per day Tobacco Use Start: Unknown End: Unknown Patient is a former smoker quit 1999 Recreational Drug Use Denies Drug Use Smoking Status Reviewed: 07/23/20 Patient is a former smoker qu it 1999 Allergies, Adverse Reactions, Alerts Active Allergies Reaction Severity Comments Date Latex 07/24/2020 Medications Active Medications SIG Qnty Indications Ordering Provide r Date Atorvastatin Calcium 20mg Tablets one tab per day 30tabs Ector Kang MD 07/24/2020 Levetiracetam 500mg Tablets Take 1 tablet by mouth Two Times Daily 60tabs Unknown 019 Gabapentin 100mg Capsules Take 200 mg by mouth nightly Unknown 02/08/2019 Loratadine 10mg Tablets Take 1 Tablet By Mouth Once Every Day Unknown 02/08/2019 Ventolin HFA 108(90Base) mcg/Act A erosol Take 1 puff By Inhalation Route Every 4 To 6 Hours as Needed Unknown 08/13/2018 Finasteride 5mg Tablets Take 5 mg by mouth daily Unknown 08/07/2018 Tamsulosin HCL 0.4mg Capsules Take 0.4 mg by mouth Two Times Daily Unknown 0 000 Vitamin D 50mcg (1999 Ut) Tablets Take 1 tablet by mouth as needed Unknown Bufferin Low Dose 81mg Tablets Take 81 mg by mouth daily Unknown Sodium Chloride 1gm Tablets Take 1 g by mouth Three times daily Unknown 00 Vitamin B12 TR 1000mcg Tablets ER 1 by mouth every day Unknown Famotidine 40mg Tablets Unknown Immunizations Description No Information Available Vital Signs Date Vital Result Comment 07/24/2020 2:33pm BP Systolic 118 mmHg BP Diastolic 70 mmHg Heart Rate 84 /min Height 67 inches 5'7" Weight 133.00 lb BMI (Body Mass Index) 20.8 kg/m2 O2 % BldC Oximetry 99 % Results Test Acquired Date Facility Test Result H/L Range Note Order 08/02/2020 [facility] Nuclear Lexiscan/Myoview <pending> Order 07/26/2020 [facility] Echocardiogram <pending> Comprehensive metabolic panel 07/19/2020 N2N/CCD Im port Albumin 4.2 g/dL 3.5 - 5.2 Bilirubin, Total 0.5 mg/dL <1.2 Calcium 9.1 mg/dL 8.8 - 10.2 Chloride 96 mmol/L Low 98 - 107 Creatinine 0.85 mg/dL 0.70 - 1.20 Glucose 227 mg/dL High 70 - 140 Alkaline Phosphatase 86 U/L 40 - 129 Potassium 3.7 mmol/L 3.4 - 5.1 Total Protein 6.7 g/dL 6.4 - 8.3 Sodium 128 mmol/L Low 136 - 145 Ast/Sgo 15 U/L <40 Blood Urea Nitrogen 8 mg/dL 8 - 23 Osmolality, Parker 271 mosm/kg Low 275 - 300 BUN/Cre Ratio 9 Bicarbonate 23 mmol/L 22 - 29 Alt/SGP 9 U/L <41 Anion Gap 9 mmol/L 8 - 15 GFR Non 2008 CDK-Epi eGFR is not calc ulated in patients <18 or >80 years of age. >60 mL/min/1.73m2 GFR 2009 CKD-Epi eGFR is not calculat ed in patients <18 or >80 years of age. >60 mL/min/1.73m2 CBC and differential 07/19/2020 N2N/CCD Import White Blood Cell 9.0 10*3/uL 4 - 10 Red Blood Cell 4.22 10*6/uL Low 4.6 - 6.1 Hemoglobin 13.7 g/dL 13.5 - 18 Hematocrit 38.6 % Low 41 - 53 Mean Cell Volume 91.5 fL 80 - 96 Mean Cell Hemoglobin 32.3 pg 27 - 33 Mean Cell Hgb Conc 35.3 g/dL 32.0 - 36.0 Red Cell Dist Width 13.3 % 11.5 - 14.5 Platelet Count 256 10*3/uL 150 - 400 Differential Type Automated Diff Neutrophil 80 % Lymphocyte 7 % Monocyte 7 % Eosinophil 5 % Basophil 1 % Abs Neutrophil 7.22 10*3/uL High 1.8 - 7.0 Abs Lymphocyte 0.66 10*3/uL Low 1.2 - 4.0 Abs Monocyte 0.64 10*3/uL 0 - 0.8 Abs Eosinophil 0.42 10*3/uL 0 - 0.5 Abs Basophil 0.08 10*3/uL 0 - 0.2 Nucleated Red Blood Cells 0 /100{WBCs} 0 - 0 Procedures Date Code Description Status 08/02/2020 38773 Cardiovascular Stress Test W/Int erpretation & Report Completed 08/02/2020 69199 Myocardial Perfusion Imaging Tomographic (Spect) Multiple Studies Completed 07/26/2020 08045 Echocardiography, Tranthoracic C omplete Image Documentation Completed Medical Devices Description No Information Available Encounters Type Date Location Provider Dx Diagnosis Office Visit 07/24/2020 2:30p [facility] Jennifer Monterroso PA-C I44 .4 Left anterior fascicular block R06.02 Shortness of breath F17.211 Nicotine dependence, cigaret adeel, in remission Assessments Date Code Description Provider 08/02/2020 R06.02 Shortness of breath Luis marvin MD 08/02/2020 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 B rio Ye MD 08/02/2020 F17.211 Nicotine dependence, cigarettes, in remission Luis Ye MD 07/26/2020 F17.211 Nicotine dependence, cigarettes, in remission Eduardo Metcalf MD 07/26/2020 R06.02 Shortness of breath Eduardo Metcalf MD 07/26/2020 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 G tere Metcalf MD 07/24/2020 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 He had a recent CT scan demonstrating coronary artery disease. He has no documented cardiac history. Given his reports of dyspnea as well as recent imaging revealing coronary atherosclerosis, further evaluation is warranted. He will be scheduled for a nuclear stress test as well as echocardiogram in order to assess for evidence of inducible ischemia and structural heart disease respectively. He will be started on Lipitor 20 mg once daily given atherosclerosis on CT scan. We will repeat a fasting lipid profile/hepatic panel in 2 months. Follow-up in one year or sooner if needed. Patient was seen and evaluated with Dr. Camarillo. Functional Status Description No Information Available Mental Status Description No Information Available Referrals Description No Information Available
--- OUTSIDE RECORDS SUMMARY | 2020-11-05 16:06 | CCD | Summary of Care ---
Author Author [facility] Organization [facility] Address Unknown Phone Unavailable Care Team Providers Care Technical System Analyst Name Role Phone Rody Pham MD PCP Reason for Visit * Reason Comments Follow-up Encounter Details Care Team Description Date Type Department Lianet Hatfield, WIRELESS TEAM MEMBER [address], [place] [id number] Primary adenocarcinoma of right lung (Pr imary Dx) 08/13/2020 Office Visit Hematology Oncology [address] [place] [phone] Allergies Comments Active Allergy Reactions Severity Noted Date Latex 05/03/2012 documented as of this encounter (statuses as of 08/17/2020) Medications End Date Status Medication Sig Dispensed [...] as of this encounter (statuses as of 08/17/2020) Active Problems Problem Noted Date Left-sided weakness 10/10/2019 Hyponatremia 10/08/2019 Primary adenocarcinoma of right lung 09/27/2018 Cancer Staging: Clinical: Stage IVB (cT 4, cN3, pM1c) - Signed by Jyoti Florian MD on 10/08/2018 Mass of right lung 09/02/2018 Esophageal cancer 11/01/2013 Spasms right side with hearburn syptoms several month s 05/03/2012 documented as of this encounter (statuses as of 08/17/2020) Immunizations Name Administration Dates Next Due Influenza [...] PM EST Date Recorded COVID-19 Exposure Response 08/13/2020 12:19 PM EDT In the last month, have you been in contact with No / Unsure someone who was confirmed or suspected to have Coronavirus / COVID-19? documented as of this encounter Last Filed Vital Signs Reading Time Taken Comments Vital Sign 152/65 08/13/2020 1:59 PM EDT Blood Pressure 72 08/13/2020 1:59 PM EDT Pulse 36.4 C (97.6 F) 08/13/2020 1:59 PM EDT Temperature 16 08/13/2020 1:59 PM EDT Respiratory Rate 98% 08/13/2020 1:59 PM EDT Oxygen Saturation - - Inhaled Oxygen Concentration 59 kg (130 lb) 08/13/2020 12:49 PM EDT Weight - - Height 19.2 10/08/2019 2:30 AM EST Body Mass Index documented in this encounter Progress Notes * Lianet Hatfield NP - 08/13/2020 1:15 PM EDT Hematology/Oncology Follow Up Note Diagnosis: 1. Primary adenocarcinoma of right lung Date of Cancer Diagnosis: 2007 and 09/2018( Lung) Cancer Stage Primary adenocarcinoma of right lung, Clinical: Stage IVB (cT4, cN3, pM1c) Past Treatment: [No treatment plan] Current Treatment: Treatment Goal: Curative Plan Name: OP KEYTRUDA NON-SMALL CELL LUNG PEMBROLIZUMAB Status: Active Start Date: 10/27/2018 End Date: 10/02/2020 (Planned) Provider: Kathia Matamoros NP Chemotherapy: pembrolizumab (KEYTRUDA) 200 mg in sodium chloride 0.9 % 50 mL brisa mo infusion, 200 mg, Intravenous, Once, 28 of 31 cycles Administration: 200 mg (10/27/2018), [...] (05/31/2020), 200 mg (06/21/2020), 200 mg (1 ) ECOG Performance Status: 1- Restricted in physically [...] 2.9 cm. He was [facility] to the [facility] where it was recommended that he undergo [...] time. Had a repeat imaging on the [facility] 2019 which showed numerous stable pleural-based masses [...] plan was to continue with Keytruda. He most rece ntly presented to our office on 07/19/2020. On that day he did receive cycle 28 of Keytruda. We also did review his CT scan which showed no significant evidenc e of progression of disease. Dr. Sharma did review the minimal growth in the lung nodule although this did not warrant changing patient's treatment. Plan wa s to get a repeat scan in [address] of the abdomen did show cholel ithiasis considering this he was referred to GI. INTERVAL HISTORY: Since he was last seen,He [...] toxicity such as colitis, jonah h. He also notifies me he did follow-up with the GI doctor and informs me a cho lecystectomy is not warranted at this time. Although I do not have the progress note from the financial operations clerk. He comes in today to be further evaluated and assess how he is doing. Subjective: Past Medical History: Diagnosis Date Arthritis Bilateral lung cancer Bilateral lung cancer Blood transfusion without reported diagnosis 2007 Enlarged prostate Non-small cell lung cancer Personal history of esophageal cancer Spinal cord cancer T3 area of spine Family and Social History Pablo Blum family history includes Alzheimer's disease in [...] chest tightness, wheezing and stridor. "I still wear oxygen at night. My sob has been the same since the last time I was here." Cardiovascular: Negative. Negative for chest pain, palpitations and leg swellin g. Gastrointestinal: Negative. Negative for abdominal distention, abdominal pain, anal bleeding, blood in stool, constipation, diarrhea, nausea, rectal pain and v omiting. Endocrine: Negative. Genitourinary: Negative. Musculoskeletal: Negative. Skin: Negative. Allergic/Immunologic: Negative. Neurological: Negative. Hematological: Negative. Psychiatric/Behavioral: Negative. All other systems reviewed and are negative. Objective: Vitals: Vitals - 1 value per visit 06/21/2020 07/19/2020 08/13/2020 SYSTOLIC 142 126 167 DIASTOLIC 74 71 75 PULSE 72 79 79 TEMPERATURE 97.7 98 98.1 RESPIRATIONS 16 18 12 Weight (kg) 59.421 kg 59.875 kg 58.968 kg HEIGHT - - - SPO2 99 98 97 BODY MASS INDEX 19.35 kg/m2 19.49 kg/m2 19.2 kg/m2 PAIN SCALE - SCORE 0 0 0 PAIN SCALE - LOCATION - - - Some recent data might be hidden Physical Exam Vitals signs reviewed. Constitutional: General: He is not in acute distress. Appearance: Normal appearance. He is not ill-appearing, toxic-appearing or di aphoretic. Comments: Augusto,accompanied by SALVADOR: Head: Normocephalic and atraumatic. Nose: [...] spinous process Lab Review Office Visit on 08/13/2020 Component Date Value Ref Range Status White Blood Cell 08/13/2020 8.1 4 - 10 10*3/uL Final Red Blood Cell 08/13/2020 4.02* 4.6 - 6.1 10*6/uL Final Hemoglobin 08/13/2020 13.0* 13.5 - 18 g/dL Final Hematocrit 08/13/2020 36.4* 41 - 53 % Final Mean Cell Volume 08/13/2020 90.5 80 - 96 fL Final Mean Cell Hemoglobin 08/13/2020 32.4 27 - 33 pg Final Mean Cell Hgb Conc 08/13/2020 35.7 32.0 - 36.0 g/dL Final Red Cell Dist Width 08/13/2020 13.4 11.5 - 14.5 % Final Platelet Count 08/13/2020 224 150 - 400 10*3/uL Final Differential Type 08/13/2020 Automated Diff Final Neutrophil 08/13/2020 75 % Final Lymphocyte 08/13/2020 8 % Final Monocyte 08/13/2020 10 % Final Eosinophil 08/13/2020 6 % Final Basophil 08/13/2020 1 % Final Abs Neutrophil 08/13/2020 6.12 1.8 - 7.0 10*3/uL Final Abs Lymphocyte 08/13/2020 0.68* 1.2 - 4.0 10*3/uL Final Abs Monocyte 08/13/2020 0.79 0 - 0.8 10*3/uL Final Abs Eosinophil 08/13/2020 0.48 0 - 0.5 10*3/uL Final Abs Basophil 08/13/2020 0.08 0 - 0.2 10*3/uL Final Nucleated Red Blood Cells 08/13/2020 0 0 - 0 /100 Final Albumin 08/13/2020 4.0 3.5 - 5.2 g/dL Final Bilirubin, Total 08/13/2020 0.4 <1.2 mg/dL Final Calcium 08/13/2020 9.2 8.8 - 10.2 mg/dL Final Chloride 08/13/2020 95* 98 - 107 mmol/L Final Creatinine 08/13/2020 0.76 0.70 - 1.20 mg/dL Final Glucose 08/13/2020 89 70 - 140 mg/dL Final Alkaline Phosphatase 08/13/2020 81 40 - 129 U/L Final Potassium 08/13/2020 3.6 3.4 - 5.1 mmol/L Final Total Protein 08/13/2020 6.6 6.4 - 8.3 g/dL Final Sodium 08/13/2020 133* 136 - 145 mmol/L Final AST/SGO 08/13/2020 16 <40 U/L Final Blood Urea Nitrogen 08/13/2020 10 8 - 23 mg/dL Final Osmolality, Parker 08/13/2020 274* 275 - 300 mosm/kg Final BUN/Cre Ratio 08/13/2020 13 Final Bicarbonate 08/13/2020 28 22 - 29 mmol/L Final ALT/SGP 08/13/2020 15 <41 U/L Final Anion Gap 08/13/2020 9 8 - 15 mmol/L Final GFR Non 2008 CDK-* 08/13/2020 eGFR is not calculated in patients <18 or >80 years of age. >60 mL/min/1.73m2 Final GFR 2008 CKD-EPI 08/13/2020 eGFR is not calculated in pa tients <18 or >80 years of age. >60 mL/min/1.73m2 Final TSH 08/13/2020 3.480 0.270 - 4.200 u[IU]/mL Final ] Assessment: The patient is an 85-year-old gentleman, who has past medical history of esophageal carcinoma, status post neoadjuvant chemotherapy and radiation, and esophagectomy in 2017, and stage I adenocarcinoma, status post SBRT in 2008. In early 2017, he was diagnosed with stage IV adenocarcinoma of the lung with ri ght lower lobe mass, mediastinal adenopathy in T2 spinous lesion also, and bilat eral pulmonary nodules T4 N3 M1c, stage IV, PD-L1 expression was 90%. He was st arted on Keytruda since October 2018. He is status post 28 cycles of Keytruda. Patient's recent CT scans [...] this present time,we will proceed with cycle #29 of Keytruda. 2. Iron deficiency anemia. S/p 1 dose of Injectafer. Recent ferritin from was 15 1.We will hold on injectafer today. 3. Fatigue/thyroid monitoring while on immunotherapy. TSH from today is 3.480 wh ich is in normal range. 4. Hyponatremia. CMP shows sodium 133. Patient is asymptomatic.No intervention w e will continue to monitor this at his next appt. 5. SOB.Stable since last visit. No further intervention is needed.Patient is on nocturnal oxygen. 6. HTN.Today's BP is in good range.Recheck BP is 143/78 We will continue to lucille ior BP moving forward 7. Weight loss. Weight [...] in 3 weeks for ov with Martini on a Thursday an d Keytruda Imaging prior to return to clinic?: no, September 2020 Labs on return to clinic? [...] details were verified and edited as appropriate. GLORIA WallsC documented in this encounter Nursing Notes * Krista Henley, RN - 08/13/2020 1:15 PM EDT TREATMENT ADMINISTRATION NOTE: Pablo Blum presents to infusion for Cycle 29, Day 1, of Keytruda . See Onco logy Nursing Assessment flowsheet for patients assessment.Port initiated w ithout incident. Port flushed easily and blood return was confirmed before, duri ng, and after treatment. Patient tolerated infusion well. Following infusion, P ort discontinued per protocol. VS stable, and as noted below. Patient encouraged to call with any questions or concerns and aware of 24 hour on-call service. A VS provided with next appointment date and time. Patient discharged home, accomp anied by family. Visit Vitals BP (P) 148/71 (BP Location: Left arm) Pulse (P) 86 Temp 36.4 C (97.6 F) (Oral) Resp (P) 16 Wt 59 kg (130 lb) SpO2 (P) 96% BMI 19.20 kg/m documented in this encounter Plan of Treatment Care Team Description Date Type Specialty Colt Garcia MD [address], [place] [id number] 09/03/2020 Office Visit Hematology and Onco logy Colt Garcia MD [address], [place] [phone] 09/24/2020 Office Visit Hematology and Onco logy Health [...] Area Manufactur er 03/31/2023 [id number] / / [id number] Port- Power P-A-C -10 Fr Dl Lp - Left: Chest STEVE HS [id number] Wall MEDICAL Implanted: Qty: 1 on 10/27/2018 by Zackery Leigh MD at [facility] INPATIENT documented as of this encounter Procedures Comments Procedure Name Priority Date/Time Associated Diag nosis CBC AND DIFFERENTIAL STAT 08/13/2020 Primary a denocarcinoma of 12:38 PM EDT right lung TSH Routine 08/13/2020 Primary adenoca rcinoma of 12:38 PM EDT right lung COMPREHENSIVE METABOLIC STAT 08/13/2020 Primar y adenocarcinoma of PANEL 12:38 PM EDT right lung documented in this encounter Results * TSH (08/13/2020 12:38 PM EDT) TSH 3.480 0.270 - 4.200 [facility] u[IU]/mL CLINICAL PATHOLOGY Specimen Plasma Performing Organization Address City/[facility] Ph one Number [facility] CLINICAL [address] [place], [place] [address] PATHOLOGY * Comprehensive metabolic panel (08/13/2020 12:38 PM EDT) Albumin 4.0 3.5 - 5.2 g/dL [facility] CLINICAL PATHOLOGY Bilirubin, 0.4 <1.2 mg/dL [facility] Total CLINICAL PATHOLOGY Calcium 9.2 8.8 - 10.2 mg/dL [facility] CLINICAL PATHOLOGY Chloride 95 (L) 98 - 107 mmol/L [facility] CLINICAL PATHOLOGY Creatinine 0.76 0.70 - 1.20 mg/dL [facility] CLINICAL PATHOLOGY Glucose 89 70 - 140 mg/dL [facility] CLINICAL PATHOLOGY Alkaline 81 40 - 129 U/L [facility] Phosphatase CLINICAL PATHOLOGY Potassium 3.6 3.4 - 5.1 mmol/L [facility] CLINICAL PATHOLOGY Total Protein 6.6 6.4 - 8.3 g/dL [facility] CLINICAL PATHOLOGY Sodium 133 (L) 136 - 145 mmol/L [facility] CLINICAL PATHOLOGY AST/SGO 16 <40 U/L [facility] CLINICAL PATHOLOGY Blood Urea 10 8 - 23 mg/dL [facility] Nitrogen CLINICAL PATHOLOGY Osmolality, Parker 274 (L) 275 - 300 mosm/kg [facility] CLINICAL PATHOLOGY BUN/Cre Ratio 13 [facility] CLINICAL PATHOLOGY Bicarbonate 28 22 - 29 mmol/L [facility] CLINICAL PATHOLOGY ALT/SGP 15 <41 U/L [facility] PATHOLOGY Anion Gap 9 8 - 15 mmol/L [facility] PATHOLOGY GFR Non eGFR is not calculated in >60 mL/min/1.73m2 [facility] 2008 patients <18 or >80 years of CLINICAL CDK-EPI age. PATHOLOGY GFR eGFR is not calculated in >60 mL/min/1.73m2 [facility] 2008 patients <18 or >80 years of CLINICAL CKD-EPI age. PATHOLOGY Specimen Plasma Performing Organization Address City/State/[facility] Ph one Number [facility] [address] [place] [address] PATHOLOGY * CBC and differential (08/13/2020 12:38 PM EDT) White Blood 8.1 4 - 10 10*3/uL [facility] Clin Pathology Red Blood Cell 4.02 (L) 4.6 - 6.1 10*6/uL [facility] Clin Pathology Hemoglobin 13.0 (L) 13.5 - 18 g/dL [facility] Clin Pathology Hematocrit 36.4 (L) 41 - 53 % [facility] Clin Pathology Mean Cell 90.5 80 - 96 fL [facility] Volume [facility] Clin Pathology Mean Cell 32.4 27 - 33 pg [facility] Clin Pathology Mean Cell Hgb 35.7 32.0 - 36.0 g/dL [facility] Clin Pathology Red Cell Dist 13.4 11.5 - 14.5 % [facility] Width [facility] Clin Pathology Platelet Count 224 150 - 400 10*3/uL [facility] Clin Pathology Differential Automated Diff [facility] Type [facility] Clin Pathology Neutrophil 75 % [facility] Clin Pathology Lymphocyte 8 % [facility] Clin Pathology Monocyte 10 % [facility] Clin Pathology Eosinophil 6 % [facility] Clin Pathology Basophil 1 % [facility] Clin Pathology Abs Neutrophil 6.12 1.8 - 7.0 10*3/uL [facility] Clin Pathology Abs Lymphocyte 0.68 (L) 1.2 - 4.0 10*3/uL [facility] Clin Pathology Abs Monocyte 0.79 0 - 0.8 10*3/uL [facility] Clin Pathology Abs Eosinophil 0.48 0 - 0.5 10*3/uL [facility] Clin Pathology Abs Basophil 0.08 0 - 0.2 10*3/uL [facility] Clin Pathology Nucleated Red 0 0 - 0 /100{WBCs} [facility] Blood Cells [facility] Clin Pathology Specimen EDTA Whole Blood Performing Organization Address City/State/[facility] Ph one Number [facility] CLINICAL [address], [place] [address] PATHOLOGY [facility] [address] [place], [place] [address] Clin Pathology documented in this encounter Visit Diagnoses Diagnosis Primary adenocarcinoma of right lung - Primary documented in this encounter Administered Medications Action Date Dose Rate Site Medication Order MAR Action 08/13/2020 2:30 PM EDT 200 mg 100 mL/hr pembrolizumab (KEYTRUDA) 200 mg in New Bag sodium chloride 0.9 % 50 mL chemo infusion 200 mg, Intravenous, Administer over 30 Minutes, Once, 08/13/20 at 1400, Fo r 1 dose documented in this encounter
--- OUTSIDE RECORDS SUMMARY | 2020-11-05 16:06 | CCD | Continuity of Care Document ---
Author Author Pablo MILLER PA-C Organization Unknown Address [address] [place] [phone] Phone [phone] Care Team Providers Care Aircraft Sheet Metal Mechanic Name Role Phone Abdi Mcnulty AUTM [phone] Colt Garcia MD AUTM [phone] Problems Description No Information Available Social History [...] 0 Procedures Date Code Description Status 08/02/2020 03337 Cardiovascular Stress Test W/Int erpretation & Report Completed 08/02/2020 37354 Myocardial Perfusion Imaging Tomographic (Spect) Multiple Studies Completed 07/26/2020 18697 Echocardiography, Tranthoracic C omplete Image Documentation Completed Medical Devices Description No Information Available Encounters Type Date Location Provider Dx Diagnosis Office Visit 07/24/2020 2:30p [facility] Jennifer Miller PA-C I44 .4 Left anterior fascicular block R06.02 Shortness of breath F17.211 Nicotine dependence, cigaret adeel, in remission Assessments Date Code Description Provider 08/02/2020 R06.02 Shortness of breath Luis marvni MD 08/02/2020 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 B rio Alfaro MD 08/02/2020 F17.211 Nicotine dependence, cigarettes, in remission Luis Alfaro MD 07/26/2020 F17.211 Nicotine dependence, cigarettes, in remission Eduardo Metcalf MD 07/26/2020 R06.02 Shortness of breath Eduardo Metcalf MD 07/26/2020 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
--- OUTSIDE RECORDS SUMMARY | 2020-11-05 16:09 | CCD ---
Author Author [facility] Organization [facility] Address Unknown Phone Unavailable Care Team Providers Care Gas Load Dispatcher Name Role Phone Suryadevara, C Taco Unavailable Unavailable Suryadevara, C Taco Unavailable Unavailable Suryadevara, C Taco Unavailable Unavailable Suryadevara, C Taco Unavailable Unavailable Suryadevara, C Taco Unavailable Unavailable Suryadevara, C Taco Unavailable Unavailable Grant, C Adelina DO Unavailable Unavailable Grant, C Adelina DO Unavailable Unavailable Grant, C Adelina DO Unavailable Unavailable Jose, C Adelina DO Unavailable Unavailable Jose, C Adelina DO Unavailable Unavailable Grant, C Adelina DO Unavailable Unavailable Jose, C Adelina DO Unavailable Unavailable Jose, C Adelina DO Unavailable Unavailable Grant, C Adelina DO Unavailable Unavailable Grant, C Adelina DO Unavailable Unavailable Grant, C Adelina DO Unavailable Unavailable Grant, C Adelina DO Unavailable Unavailable Jose, C Adelina DO Unavailable Unavailable Jose, C Adelina DO Unavailable Unavailable Grant, C Adelina DO Unavailable Unavailable Jose, C Adelina DO Unavailable Unavailable Grant, C Adelina DO Unavailable Unavailable Jose, C Adelina DO Unavailable Unavailable Jose, C Adelina DO Unavailable Unavailable Jose, C Adelina DO Unavailable Unavailable Jose, C Adelina DO Unavailable Unavailable Grant, C Adelina DO Unavailable Unavailable Jose, C Adelina DO Unavailable Unavailable Grant, C Adelina DO Unavailable Unavailable Grant, C Adelina DO Unavailable Unavailable Jose, C Adelina DO Unavailable Unavailable Jose, C Adelina DO Unavailable Unavailable Grant, C Adelina DO Unavailable Unavailable Jose, C Adelina DO Unavailable Unavailable Grant, C Adelina DO Unavailable Unavailable Grant, C Adelina DO Unavailable Unavailable Jose, C Adelina DO Unavailable Unavailable Joes, C Adelina DO Unavailable Unavailable Ankit, E Rody MD Unavailable Unavailable Ankit, E Rody MD Unavailable Unavailable Ankit, E Rody MD Unavailable Unavailable Ankit, E Rody MD Unavailable Unavailable Ankit, E Rody MD Unavailable Unavailable Ankit, E Rody MD Unavailable Unavailable Ankit, E Rody MD Unavailable Unavailable Ankit, E Rody MD Unavailable Unavailable Ankit, E Rody MD Unavailable Unavailable Ankit, E Rody MD Unavailable Unavailable Ankit, E Rody MD Unavailable Unavailable Ankit, E Rody MD Unavailable Unavailable Ankit, E Rody MD Unavailable Unavailable Ankit, E Rody MD Unavailable Unavailable Ankit, E Rody MD Unavailable Unavailable Ankit, E Rody MD Unavailable Unavailable Ankit, E Rody MD Unavailable Unavailable Ankit, E Royd MD Unavailable Unavailable Ankit, E Rody MD Unavailable Unavailable Ankit, E Rody MD Unavailable Unavailable Ankit, E Rody MD Unavailable Unavailable Ankit, E Rody MD Unavailable Unavailable Ankit, E Rody MD Unavailable Unavailable Ankit, E Rody MD Unavailable Unavailable Ankit, E Rody MD Unavailable Unavailable Ankit, E Rody MD Unavailable Unavailable Ankit, E Rody MD Unavailable Unavailable Ankit, E Rody MD Unavailable Unavailable Ankit, E Rody MD Unavailable Unavailable Ankit, E Rody MD Unavailable Unavailable Ankit, E Rody MD Unavailable Unavailable Ankit, E Rody MD Unavailable Unavailable Ankit, E Rody MD Unavailable Unavailable Ankit, E Rody MD Unavailable Unavailable Ankit, E Rody MD Unavailable Unavailable Ankit, E Rody MD Unavailable Unavailable Ankit, E Rody MD Unavailable Unavailable Ankit, E Rody MD Unavailable Unavailable Ankit, E Rody MD Unavailable Unavailable Erika Pham MD Unavailable Unavailable Erika Pham MD Unavailable Unavailable Erika Pham MD Unavailable Unavailable Erika Pham MD Unavailable Unavailable Erika Pham MD Unavailable Unavailable Erika Pham MD Unavailable Unavailable OBEN, T JOE MD Unavailable Unavailable OBEN, T JOE MD Unavailable Unavailable OBEN, T JOE MD Unavailable Unavailable OBEN, T JOE MD Unavailable Unavailable OBEN, T JOE MD Unavailable Unavailable OBEN, T JOE MD Unavailable Unavailable OBEN, T JOE MD Unavailable Unavailable OBEN, T JOE MD Unavailable Unavailable OBEN, T JOE MD Unavailable Unavailable OBEN, T JOE MD Unavailable Unavailable OBEN, T JOE MD Unavailable Unavailable OBEN, T JOE MD Unavailable Unavailable OBEN, T JOE MD Unavailable Unavailable OBEN, T JOE MD Unavailable Unavailable OBEN, T JOE MD Unavailable Unavailable OBEN, T JOE MD Unavailable Unavailable OBEN, T JOE MD Unavailable Unavailable OBEN, T JOE MD Unavailable Unavailable OBEN, T JOE MD Unavailable Unavailable OBEN, T JOE MD Unavailable Unavailable OBEN, T JOE MD Unavailable Unavailable OBEN, T JOE MD Unavailable Unavailable OBEN, T JOE MD Unavailable Unavailable OBEN, T JOE MD Unavailable Unavailable OBEN, T JOE MD Unavailable Unavailable OBEN, T JOE MD Unavailable Unavailable OBEN, T JOE MD Unavailable Unavailable OBEN, T JOE MD Unavailable Unavailable OBEN, T JOE MD Unavailable Unavailable OBEN, T JOE MD Unavailable Unavailable OBEN, T JOE MD Unavailable Unavailable OBEN, T JOE MD Unavailable Unavailable OBEN, T JOE MD Unavailable Unavailable OBEN, T JOE MD Unavailable Unavailable OBEN, T JOE MD Unavailable Unavailable OBEN, T JOE MD Unavailable Unavailable OBEN, T JOE MD Unavailable Unavailable OBEN, T JOE MD Unavailable Unavailable OBEN, T JOE MD Unavailable Unavailable OBEN, T JOE MD Unavailable Unavailable OBEN, T JOE MD Unavailable Unavailable OBEN, T JOE MD Unavailable Unavailable OBEN, T JOE MD Unavailable Unavailable OBEN, T JOE MD Unavailable Unavailable OBEN, T JOE MD Unavailable Unavailable OBEN, T JOE MD Unavailable Unavailable OBEN, T JOE MD Unavailable Unavailable OBEN, T JOE MD Unavailable Unavailable Nura BAIRD MD Unavailable Unavailable Nura BAIRD MD Unavailable Unavailable Nura BAIRD MD Unavailable Unavailable Nura BAIRD MD Unavailable Unavailable Nura BAIRD MD Unavailable Unavailable LUIS MANUEL B VINCENT Unavailable Unavailable Brenda Hernandez MD Unavailable Unavailable Brenda Hernandez MD Unavailable Unavailable Brenda Hernandez MD Unavailable Unavailable Brenda Hernandez MD Unavailable Unavailable Brenda Hernandez MD Unavailable Unavailable Brenda Hernandez MD Unavailable Unavailable Brenda Hernandez MD Unavailable Unavailable Brenda Hernandez MD Unavailable Unavailable Brenda Hernandez MD Unavailable Unavailable Brenda Hernandez MD Unavailable Unavailable Brenda Hernandez MD Unavailable Unavailable Brenda Hernandez MD Unavailable Unavailable Brenda Hernandez MD Unavailable Unavailable Brenda Hernandez MD Unavailable Unavailable Brenda Henrandez MD Unavailable Unavailable Brenda Hernandez MD Unavailable Unavailable Brenda Hernandez MD Unavailable Unavailable Brenda Hernandez MD Unavailable Unavailable Brenda Hernandez MD Unavailable Unavailable Brenda Hernandez MD Unavailable Unavailable Brenda Hernandez MD Unavailable Unavailable Brenda Hernandez MD Unavailable Unavailable Brenda Hernandez MD Unavailable Unavailable THABET, MORRIS DISPATCH SUPERVISOR Unavailable Unavailable THABET, MORRIS DISPATCH SUPERVISOR Unavailable Unavailable THABET, MORRIS DISPATCH SUPERVISOR Unavailable Unavailable THABET, MORRIS DISPATCH SUPERVISOR Unavailable Unavailable THABET, MORRIS DISPATCH SUPERVISOR Unavailable Unavailable THABET, MORRIS DISPATCH SUPERVISOR Unavailable Unavailable THABET, MORRSI DISPATCH SUPERVISOR Unavailable Unavailable THABET, MORRIS DISPATCH SUPERVISOR Unavailable Unavailable THABET, MORRIS DISPATCH SUPERVISOR Unavailable Unavailable THABET, MORRIS DISPATCH SUPERVISOR Unavailable Unavailable THABET, MORRIS DISPATCH SUPERVISOR Unavailable Unavailable THABET, MORRIS DISPATCH SUPERVISOR Unavailable Unavailable THABET, MORRIS DISPATCH SUPERVISOR Unavailable Unavailable THABET, MORRIS DISPATCH SUPERVISOR Unavailable Unavailable THABET, MORRIS DISPATCH SUPERVISOR Unavailable Unavailable THABET, MORRIS DISPATCH SUPERVISOR Unavailable Unavailable THABET, MORRIS DISPATCH SUPERVISOR Unavailable Unavailable THABET, MORRIS DISPATCH SUPERVISOR Unavailable Unavailable THABET, MORRIS DISPATCH SUPERVISOR Unavailable Unavailable THABET, MORRIS DISPATCH SUPERVISOR Unavailable Unavailable THABET, MORRIS DISPATCH SUPERVISOR Unavailable Unavailable THABET, MORRIS DISPATCH SUPERVISOR Unavailable Unavailable THABET, MORRIS DISPATCH SUPERVISOR Unavailable Unavailable THABET, MORRIS DISPATCH SUPERVISOR Unavailable Unavailable THABET, MORRIS DISPATCH SUPERVISOR Unavailable Unavailable THABET, MORRIS DISPATCH SUPERVISOR Unavailable Unavailable THABET, MORRIS DISPATCH SUPERVISOR Unavailable Unavailable THABET, MORRIS DISPATCH SUPERVISOR Unavailable Unavailable THABET, MORRIS DISPATCH SUPERVISOR Unavailable Unavailable THABET, MORRIS DISPATCH SUPERVISOR Unavailable Unavailable THABET, MORRIS DISPATCH SUPERVISOR Unavailable Unavailable THABET, MORRIS DISPATCH SUPERVISOR Unavailable Unavailable THABET, MORRIS DISPATCH SUPERVISOR Unavailable Unavailable Hamlet, D Abdi PA Unavailable Unavailable Hamlet, D Abdi PA Unavailable Unavailable Hamlet, D Abdi PA Unavailable Unavailable Hamlet, D Abdi PA Unavailable Unavailable Hamlet, D Abdi PA Unavailable Unavailable Hamlet, D Abdi PA Unavailable Unavailable Hamlet, D Abdi PA Unavailable Unavailable Hamlet, D Abdi PA Unavailable Unavailable Hamlet, D Abdi PA Unavailable Unavailable Hamlet, D Abdi PA Unavailable Unavailable Hamlet, D Abdi PA Unavailable Unavailable Hamlet, D Abdi PA Unavailable Unavailable Hamlet, D Abdi PA Unavailable Unavailable Hamlet, D Abdi PA Unavailable Unavailable Hamlet, D Abdi PA Unavailable Unavailable Hamlet, D Abdi PA Unavailable Unavailable Hamlet, D Abdi PA Unavailable Unavailable Hamlet, D Abdi PA Unavailable Unavailable Hamlet, D Abdi PA Unavailable Unavailable Hamlet, D Abdi PA Unavailable Unavailable ROHIT [id number], E LIGIA [id number] Unavailable Unavailab le ROHIT [id number], E LIGIA [id number] Unavailable Unavailab le ROHIT [id number], E LIGIA [id number] Unavailable Unavailab Annie Agudelo MD Unavailable Unavailable Annie OLGUIN MD Unavailable Unavailable nAnie OLGUIN MD Unavailable Unavailable Annie OLGUIN MD Unavailable Unavailable Annie OLGUIN MD Unavailable Unavailable Annie OLGUIN MD Unavailable Unavailable Annie OLGUIN MD Unavailable Unavailable Annie OLGUIN MD Unavailable Unavailable Erika Pham MD Unavailable Unavailable Erika Pham MD Unavailable Unavailable Erika Pham MD Unavailable Unavailable Erika Pham MD Unavailable Unavailable Erika Pham MD Unavailable Unavailable Erika Pham MD Unavailable Unavailable Erika Pham MD Unavailable Unavailable Erika Pham MD Unavailable Unavailable Erika Pham MD Unavailable Unavailable Erika Pham MD Unavailable Unavailable Erika Pham MD Unavailable Unavailable Erika Pham MD Unavailable Unavailable Ankit, E Rody MD Unavailable Unavailable Ankit, E Rody MD Unavailable Unavailable Ankit, E Rody MD Unavailable Unavailable Ankit, E Rody MD Unavailable Unavailable Ankit, E Rody MD Unavailable Unavailable Ankit, E Rody MD Unavailable Unavailable Ankit, E Rody MD Unavailable Unavailable Ankit, E Rody MD Unavailable Unavailable Ankit, E Rody MD Unavailable Unavailable Ankit, E Rody MD Unavailable Unavailable Ankit, E Rody MD Unavailable Unavailable Ankit, E Rody MD Unavailable Unavailable Ankit, E Rody MD Unavailable Unavailable Ankit, E Rody MD Unavailable Unavailable Ankit, E Rody MD Unavailable Unavailable Ankit, E Rody MD Unavailable Unavailable Ankit, E Rody MD Unavailable Unavailable Ankit, E Rody MD Unavailable Unavailable Ankit, E Rody MD Unavailable Unavailable Ankit, E Rody MD Unavailable Unavailable Ankit, E Rody MD Unavailable Unavailable Ankit, E Rody MD Unavailable Unavailable Ankit, E Rody MD Unavailable Unavailable Ankit, E Rody MD Unavailable Unavailable Ankit, E Rody MD Unavailable Unavailable Ankti, E Rody MD Unavailable Unavailable Ankit, E Rody MD Unavailable Unavailable Ankit, E Rody MD Unavailable Unavailable Ankit, E Rody MD Unavailable Unavailable Ankit, E Rody MD Unavailable Unavailable Ankit, E Rody MD Unavailable Unavailable Ankit, E Rody MD Unavailable Unavailable Ankit, E Rody MD Unavailable Unavailable Monterroso, N Jennifer PA-C Unavailable Unavailable Monterroso, N Jennifer PA-C Unavailable Unavailable Monterroso, N Jennifer PA-C Unavailable Unavailable Monterroso, N Jennifer PA-C Unavailable Unavailable Monterroso, N Jennifer PA-C Unavailable Unavailable Monterroso, N Jennifer PA-C Unavailable Unavailable Nura BAIRD MD Unavailable Unavailable Nura BAIRD MD Unavailable Unavailable Nura BAIRD MD Unavailable Unavailable Nura BAIRD MD Unavailable Unavailable Nura BAIRD MD Unavailable Unavailable Nura BAIRD MD Unavailable Unavailable Nura BAIRD MD Unavailable Unavailable Nura BAIRD MD Unavailable Unavailable Nura BAIRD MD Unavailable Unavailable Nura BAIRD MD Unavailable Unavailable Nura BAIRD MD Unavailable Unavailable Nura BAIRD MD Unavailable Unavailable OBEN, T JOE MD Unavailable Unavailable OBEN, T JOE MD Unavailable Unavailable OBEN, T JOE MD Unavailable Unavailable OBEN, T JOE MD Unavailable Unavailable OBEN, T JOE MD Unavailable Unavailable OBEN, T JOE MD Unavailable Unavailable OBEN, T JOE MD Unavailable Unavailable OBEN, T JOE MD Unavailable Unavailable OBEN, T JOE MD Unavailable Unavailable OBEN, T JOE MD Unavailable Unavailable OBEN, T JOE MD Unavailable Unavailable OBEN, T OJE MD Unavailable Unavailable OBEN, T JOE MD Unavailable Unavailable OBEN, T JOE MD Unavailable Unavailable OBEN, T JOE MD Unavailable Unavailable OBEN, T JOE MD Unavailable Unavailable OBEN, T JOE MD Unavailable Unavailable OBEN, T JOE MD Unavailable Unavailable OBEN, T JOE MD Unavailable Unavailable OBEN, T JOE MD Unavailable Unavailable OBEN, T JOE MD Unavailable Unavailable OBEN, T JOE MD Unavailable Unavailable OBEN, T JOE MD Unavailable Unavailable OBEN, T JOE MD Unavailable Unavailable OBEN, T JOE MD Unavailable Unavailable OBEN, T JOE MD Unavailable Unavailable OBEN, T JOE MD Unavailable Unavailable OBEN, T JOE MD Unavailable Unavailable OBEN, T JOE MD Unavailable Unavailable OBEN, T JOE MD Unavailable Unavailable OBEN, T JOE MD Unavailable Unavailable OBEN, T JOE MD Unavailable Unavailable OBEN, T JOE MD Unavailable Unavailable OBEN, T JOE MD Unavailable Unavailable OBEN, T JOE MD Unavailable Unavailable OBEN, T JOE MD Unavailable Unavailable OBEN, T JOE MD Unavailable Unavailable OBEN, T JOE MD Unavailable Unavailable OBEN, T JOE MD Unavailable Unavailable OBEN, T JOE MD Unavailable Unavailable OBEN, T JOE MD Unavailable Unavailable Jose, L Colt Unavailable Unavailable Jose, L Colt Unavailable Unavailable Jose, L Colt Unavailable Unavailable Jose, L Colt Unavailable Unavailable Jose, L Colt Unavailable Unavailable Jose, L Colt Unavailable Unavailable Jose, L Colt Unavailable Unavailable Jose, L Colt Unavailable Unavailable Jose, L Colt Unavailable Unavailable Jose, L Colt Unavailable Unavailable Jose, L Colt Unavailable Unavailable Jose, L Colt Unavailable Unavailable Jose, L Colt Unavailable Unavailable Jose, L Colt Unavailable Unavailable Jose, L Colt Unavailable Unavailable Jose, L Colt Unavailable Unavailable Jose, L Colt Unavailable Unavailable Jose, L Colt Unavailable Unavailable Jose, L Colt Unavailable Unavailable Jose, L Colt Unavailable Unavailable Jose, L Colt Unavailable Unavailable Jose, L Colt Unavailable Unavailable Jose, L Colt Unavailable Unavailable Jose, L Colt Unavailable Unavailable Jose, L Colt Unavailable Unavailable Jose, L Colt Unavailable Unavailable Jose, L Colt Unavailable Unavailable Jose, L Colt Unavailable Unavailable Jose, L Colt Unavailable Unavailable Jose, L Colt Unavailable Unavailable Jose, L Colt Unavailable Unavailable Jose, L Colt Unavailable Unavailable Jose, L Colt Unavailable Unavailable Jose, L Colt Unavailable Unavailable Jose, L Colt Unavailable Unavailable Jose, L Colt Unavailable Unavailable Jose, L Colt Unavailable Unavailable Jose, L Colt Unavailable Unavailable Jose, L Colt Unavailable Unavailable Jose, L Colt Unavailable Unavailable Jose, L Colt Unavailable Unavailable Jose, L Colt Unavailable Unavailable Jose, L Colt Unavailable Unavailable Jose, L Colt Unavailable Unavailable Jose, L Colt Unavailable Unavailable Jose, L Colt Unavailable Unavailable Jose, L Colt Unavailable Unavailable Jose, L Colt Unavailable Unavailable Jose, L Colt Unavailable Unavailable Jose, L Colt Unavailable Unavailable Jose, L Colt Unavailable Unavailable Jose, L Colt Unavailable Unavailable Jose, L Colt Unavailable Unavailable Jose, L Colt Unavailable Unavailable Jose, L Colt Unavailable Unavailable Jose, L Colt Unavailable Unavailable Jose, L Colt Unavailable Unavailable Jose, L Colt Unavailable Unavailable Jose, L Colt Unavailable Unavailable Jose, L Colt Unavailable Unavailable Jose, L Colt Unavailable Unavailable Jose, L Colt Unavailable Unavailable Monterroso, N Jennifer PA-C Unavailable Unavailable Monterroso, N Jennifer PA-C Unavailable Unavailable Monterroso, N Jennifer PA-C Unavailable Unavailable Monterroso, N Jennifer PA-C Unavailable Unavailable Monterroso, N Jennifer PA-C Unavailable Unavailable Monterroso, N Jennifer PA-C Unavailable Unavailable Bartoszewski, Linda Makenna MS, RPA-C Unavailable Unav ailable Bartoszewski, Linda Makenna MS, RPA-C Unavailable Unav ailable Bartoszewski, Linda Makenna MS, RPA-C Unavailable Unav ailable Bartoszewski, Linda Makenna MS, RPA-C Unavailable Unav ailable Bartoszewski, Linda Makenna MS, RPA-C Unavailable Unav ailable Bartoszewski, Linda Makenna MS, RPA-C Unavailable Unav ailable Bartoszewski, Linda Makenna MS, RPA-C Unavailable Unav ailable Bartoszewski, Linda Makenna MS, RPA-C Unavailable Unav ailable Bartoszewski, Linda Makenna MS, RPA-C Unavailable Unav ailable Bartoszewski, Linda Makenna MS, RPA-C Unavailable Unav ailable Bartoszewski, Linda Makenna MS, RPA-C Unavailable Unav ailable Bartoszewski, Linda Makenna MS, RPA-C Unavailable Unav ailable Bartoszewski, Linda Makenna MS, RPA-C Unavailable Unav ailable Bartoszewski, Linda Makenna MS, RPA-C Unavailable Unav ailable Bartoszewski, Linda Makenna MS, RPA-C Unavailable Unav ailable Bartoszewski, Linda Makenna MS, RPA-C Unavailable Unav ailable Bartoszewski, Linda Makenna MS, RPA-C Unavailable Unav ailable Bartoszewski, Linda Makenna MS, RPA-C Unavailable Unav ailable Bartoszewski, Linda Makenna MS, RPA-C Unavailable Unav ailable Bartoszewski, Linda Makenna MS, RPA-C Unavailable Unav ailable Bartoszewski, Linda Makenna MS, RPA-C Unavailable Unav ailable Bartoszewski, Linda Makenna MS, RPA-C Unavailable Unav ailable Bartoszewski, Linda Makenna MS, RPA-C Unavailable Unav ailable Bartoszewski, Linda Makenna MS, RPA-C Unavailable Unav ailable Bartoszewski, Linda Makenna MS, RPA-C Unavailable Unav ailable Bartoszewski, Linda Makenna MS, RPA-C Unavailable Unav ailable Bartoszewski, Linda Makenna MS, RPA-C Unavailable Unav ailable Bartoszewski, Linda Makenna MS, RPA-C Unavailable Unav ailable Bartoszewski, Linda Makenna MS, RPA-C Unavailable Unav ailable Brown, Jam PA Unavailable Unavailable Brown, Jam PA Unavailable Unavailable Brown, Jam PA Unavailable Unavailable Brown, Jam PA Unavailable Unavailable Brown, Jam PA Unavailable Unavailable Brown, Jam PA Unavailable Unavailable Brown, Jam PA Unavailable Unavailable Brown, Jam PA Unavailable Unavailable Brown, Jam PA Unavailable Unavailable Brown, Jam PA Unavailable Unavailable Brown, Jam PA Unavailable Unavailable Brown, Jam PA Unavailable Unavailable Brown, Jam PA Unavailable Unavailable Brown, Jam PA Unavailable Unavailable Brown, Jam PA Unavailable Unavailable Brown, Jam PA Unavailable Unavailable Brown, Jam PA Unavailable Unavailable Brown, Jam PA Unavailable Unavailable Brown, Jam PA Unavailable Unavailable Brown, Jam PA Unavailable Unavailable Brown, Jam PA Unavailable Unavailable Brown, Jam PA Unavailable Unavailable Brown, Jam PA Unavailable Unavailable Brown, Jam PA Unavailable Unavailable Brown, Jam PA Unavailable Unavailable Brown, Jam PA Unavailable Unavailable Brown, Jam PA Unavailable Unavailable Brown, Jam PA Unavailable Unavailable Brown, Jam PA Unavailable Unavailable Brown, Jam PA Unavailable Unavailable Brown, Jam PA Unavailable Unavailable Brown, Jam PA Unavailable Unavailable Brown, Jam PA Unavailable Unavailable Brown, Jam PA Unavailable Unavailable Brown, Jam PA Unavailable Unavailable Brown, Jam PA Unavailable Unavailable Brown, Jam PA Unavailable Unavailable Brown, Jam PA Unavailable Unavailable Brown, Jam PA Unavailable Unavailable Brown, Jam PA Unavailable Unavailable Brown, Jam PA Unavailable Unavailable Brown, Jam PA Unavailable Unavailable Brown, Jam PA Unavailable Unavailable Brown, Jam PA Unavailable Unavailable Brown, Jam PA Unavailable Unavailable Brown, Jam PA Unavailable Unavailable Brown, Jam PA Unavailable Unavailable Brown, Jam PA Unavailable Unavailable Re-disclosure Warning The records that you are about to access may contain information from federally-assisted alcohol or drug abuse programs. If such information is present, then the following federally mandated warning applies: This information has been disclosed to you from records protected by federal confidentiality rules (42 CFR part 2). The federal rules prohibit you from making any further disclosure of this information unless further disclosure is expressly permitted by the written consent of the person to whom it pertains or as otherwise permitted by 42 CFR part 2. A general authorization for the release of medical or other information is NOT sufficient for this purpose. The Federal rules restrict any use of the information to criminally investigate or prosecute any alcohol or drug abuse patient.The records that you are about to access may contain highly sensitive health information, the redisclosure of which is protected by Article 27-F of the [facility] Public [facility] law. If you continue you may have access to information: Regarding HIV / AIDS; Provided by facilities licensed or operated by the [facility] of Mental Health; or Provided by the [facility] Office for People With Developmental Disabilities. If such information is present, then the following [facility] mandated warning applies: This information has been disclosed to you from confidential records which are protected by state law. State law prohibits you from making any further disclosure of this information without the specific written consent of the person to whom it pertains, or as otherwise permitted by law. Any unauthorized further disclosure in violation of state law may result in a fine or long-term sentence or both. A general authorization for the release of medical or other information is NOT sufficient authorization for further disc losure. Allergies and Adverse Reactions Type Description Substance Reaction Status Data Source(s ) No Known Drug Allergies No Known Drug Allergies [facility] ENVIRONMENTAL LATEX LATEX RASH [facility] Family History Family Member Name Family Member Gender Family Member Status Date o f Status Description Data Source(s) Unknown Female Problem [facility] ([facility]) Encounters Encounter Providers Location Date Indications Data Source(s ) Outpatient Attender: Colt Garcia 11/13/2020 12:00:00 AM [facility] Outpatient Referrer: ALEXANDRA XIE NP 10/31/2020 12 :00:00 AM EST 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 [facility] 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 Outpatient Attender: Colt FritzA-ONCCACTR 10/23 12:00:00 AM EST - 10/23/2020 03:40:16 PM EST 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 [facility] 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 Outpatient Attender: Colt Garcia 10/22/2020 12:00:00 AM [facility] Outpatient Referrer: ALEXANDRA XIE NP 10/15/2020 12:00:00 AM [facility] Outpatient Attender: JOE BAIRD MDConsultant: Rody fraser MD 10/09/2020 09:40:00 AM EST - 10/09/2020 09:40:00 AM [facility] Outpatient Attender: JOE BAIRD MD Family Practice 10/09/2020 09:00:0 0 AM EST [facility] ([facility]) Outpatient Attender: ALEXANDRA XIE ANNETTE FritzA-ONCCACTR 09/18 12:00:00 AM EST - 09/27/2020 04:14:16 PM EST 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 [facility] 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 Outpatient Attender: Colt Garcia 09/24/2020 12:00:00 AM EST [facility] Outpatient Attender: Colt Huizar-ONCCACTR 09/03 12:00:00 AM EST - 09/03/2020 01:46:01 PM EST 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 [facility] 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 Outpatient Attender: Jennifer Monterroso PA-C 08/24/2020 1 1:12:00 AM EST CARDIOMYOPATHY,I42.9 [facility] CARDIOMYOPATHY,I42.9 Outpatient<td ID="encounterTypeDescripti onID1">followup</td><td>Abdi Hager</td><td>[facility], [facility]</td><td>08/21/2020</td><td>12:41PM</td><td>2:07PM</td><td><content ID="encounterDiagnosisID1-0">Benign Prostatic Hypertrophy</content>, <content ID="encounterDiagnosisID1-1">Bundle Branch Block Right</content>, <content ID="encounterDiagnosisID1-2">Carotid Artery Stenosis</content>, <content ID="encounterDiagnosisID1-3">Hyponatremia</content>, <content ID="encounterDiagnosisID1-4">Lung Neoplasm Malignant Adenocarcinoma</content>, <content ID="encounterDiagnosisID1-5">Neuropathy</content>, <content ID="encounterDiagnosisID1-6">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</content>, <content ID="encounterDiagnosisID1-7">Routine History and Physical Geriatric (80+ Yrs)</content></td> Attender: Abdi MATA [facility] 08/21/2020 12:41:00 PM EST - 08/21/2020 02:07:00 PM ES T Routine History and Physical Geriatric (80+ Yrs)Bundle Branch Block Right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NeuropathyHyponatremiaLung Neoplasm Malignant AdenocarcinomaCarotid Artery StenosisBenign Prostatic Hypertrophy [place] ([facility]) Routine History and Physical Geriatric ( 80+ Yrs) 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 Neuropathy Hyponatremia 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 Benign Prostatic Hypertrophy Outpatient<td ID="encounterTypeDescripti onID0"> Annual Wellness SUBSEQUENT visi t(> 1yr since prev.</td><td>Abdi Hong PA-C</td><td>[facility]</td><td>08/21/2020</td><td> 12:41PM</td><td>2:07PM</td><td><content ID="encounterDiagnosisID0-0">Routine History and Physical Geriatric (80+ Yrs)</content>, <content ID="encounterDiagnosisID0-1">Tobacco Use</content></td> Attender: Abdi MATA [facility] 08/21/2020 12:41:00 PM EST - 08/21/2020 02:07:00 PM EST Tobacco UseRoutine History and Physical Geriatric (80+ Yrs)Tobacco UseRoutine History and Physical Geriatric (80+ Yrs) [place] ([facility]) Tobacco Use Routine History and Physical Geriatric ( 80+ Yrs) Tobacco Use Routine History and Physical Geriatric ( 80+ Yrs) Outpatient Attender: ALEXANDRA Huizar-ONCCACTLiliana 07/20 12:00:00 AM EDT - 08/13/2020 03:34:15 PM EDT 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 [facility] 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 Outpatient Attender: Jennifer Monterroso PA-C [facility] 07/24/2020 02:30:00 PM EDT [facility] ([facility]) Outpatient Attender: ALEXANDRA Huizar-ONCCACTLiliana 10/2019 12:00:00 AM EDT - 07/19/2020 01:23:53 PM EDT 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 [facility] 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 Outpatient Attender: Colt Jose 07/17/2020 12:00:00 AM [facility] Outpatient Attender: Colt Chrisiano 07/17/2020 12:00:00 AM T [facility] Outpatient<td ID="encounterTypeDescripti onID2">electrocardiogram</td><td>Abdi Hong PA-C</td><td>[facility], [facility]</td><td>07/12/2020</td><td>10:31AM</td><td>11:16AM</td><td><content ID="encounterDiagnosisID2-0">Benign Prostatic Hypertrophy</content>, <content ID="encounterDiagnosisID2-1">Bundle Branch Block Right</content></td> Attender: Abdi MATA [facility], [facility] 07/12/2020 10:31:00 A EDT - 07/12/2020 11:16:12 AM EDT Bundle Branch Block RightBundle Branch B lock RightBundle Branch Block RightBundle Branch Block RightWorking Diagnosis of Visit For: Preoperative ExamHyponatremiaBenign Prostatic HypertrophyBenign Pro static HypertrophyBenign Prostatic HypertrophyBenign Prostatic HypertrophyBenign Prostatic HypertrophyBenign Prostatic Hypertrophy [place] ([facility]) 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 Working Diagnosis of Visit For: Preopera tive Exam Hyponatremia Benign Prostatic Hypertrophy Benign Prostatic Hypertrophy Benign Prostatic Hypertrophy Benign Prostatic Hypertrophy Benign Prostatic Hypertrophy Benign Prostatic Hypertrophy Outpatient Referrer: ALEXANDRA XIE NP 07/10/2020 12 :00:00 AM EDT 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 [facility] 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 Outpatient Referrer: ALEXANDRA XIE NP 07/10/2020 12:00:00 AM T [facility] Outpatient Attender: JOE BAIRD MDConsultant: Rody fraser MD 07/03/2020 09:28:10 AM EDT - 07/04/2020 08:14:00 AM EDT [facility] Patient discharged. Outpatient Attender: Makenna Glass MS, RPA-CC onsultant: Rody Pham MD 06/30/2020 11:19:34 AM EDT - 07/02/2020 10:56:00 AM EDT [facility] Patient discharged. Outpatient Attender: ALEXANDRA XIE NP 07A-ONCCACTR 12/2019 12:00:00 AM EDT - 06/21/2020 02:08:49 PM EDT 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 [facility] 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 Outpatient<td ID="encounterTypeDescripti onID3">Pre-op consult for surgery</td><td>Abdi Hong PA-C</td><td>[facility], [facility]</td><td>06/19/2020</td><td>10:58AM</td><td>11:26AM</td><td><content ID="encounterDiagnosisID3-0">Benign Prostatic Hypertrophy</content>, <content ID="encounterDiagnosisID3-1">Working Diagnosis of Visit For: Preoperative Exam</content>, <content ID="encounterDiagnosisID3-2">Hyponatremia</content></td> Attender: Abdi MATA [facility], [facility] 06/19/2020 10:58:00 A M EDT - 06/19/2020 11:26:00 AM EDT Working Diagnosis of Visit For: Preopera tive ExamWorking Diagnosis of Visit For: Preoperative ExamWorking Diagnosis of Visit For: Preoperative ExamWorking Diagnosis of Visit For: Preoperative ExamWorking Diagnosis of Visit For: Preoperative ExamWorking Diagnosis of Visit For: Preoperative ExamWorking Diagnosis of Visit For: Preoperative ExamHyponatremiaHyponatremiaHyponatremiaHyponatremiaHyponatremiaHyponatremiaHypo natremiaBenign Prostatic HypertrophyBenign Prostatic HypertrophyBenign Prostatic HypertrophyBenign Prostatic HypertrophyBenign Prostatic HypertrophyBenign Prostatic HypertrophyBenign Prostatic Hypertrophy [facility]) Working Diagnosis of Visit For: Preopera tive Exam Working Diagnosis of Visit For: Preopera tive Exam Working Diagnosis of Visit For: Preopera tive Exam Working Diagnosis of Visit For: Preopera tive Exam Working Diagnosis of Visit For: Preopera tive Exam Working Diagnosis of Visit For: Preopera tive Exam Working Diagnosis of Visit For: Preopera tive Exam Hyponatremia Hyponatremia Hyponatremia Hyponatremia Hyponatremia Hyponatremia Hyponatremia Benign Prostatic Hypertrophy Benign Prostatic Hypertrophy Benign Prostatic Hypertrophy Benign Prostatic Hypertrophy Benign Prostatic Hypertrophy Benign Prostatic Hypertrophy Benign Prostatic Hypertrophy Outpatient Attender: Brenda Love/Meena/Walter/Jono ndl 06/11/2020 10:30:00 AM EDT [facility] ([facility], ) Outpatient Attender: JOE BAIRD MDConsultant: Rody fraser MD 06/05/2020 09:10:00 AM EDT - 06/05/2020 09:10:00 AM EDT [facility] Outpatient Attender: ALEXANDRA QuintanaONCBIJAL 05/19 12:00:00 AM EDT - 05/31/2020 02:45:19 PM EDT 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 [facility] 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 Outpatient Attender: JOE BAIRD MDConsultant: Rody fraser MD 05/11/2020 08:30:00 AM EDT - 05/11/2020 11:49:00 AM EDT [facility] Patient discharged. Outpatient Attender: ALEXANDRA Huizar-ONCCACTLiliana 04/19 12:00:00 AM EDT - 05/10/2020 02:25:18 PM EDT 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 [facility] 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 Outpatient Attender: Makenna Glass MS, RPA-CC onsultant: Rody Pham MD 05/07/2020 10:30:00 AM EDT - 05/07/2020 11:30:00 AM EDT [facility] Patient discharged. Outpatient Attender: ALEXANDRA Huizar-ONCCACTR 11/2019 12:00:00 AM EDT - 04/19/2020 03:13:20 PM EDT Iron deficiency anemia, unspecified [facility] Iron deficiency anemia, unspecified Outpatient Attender: Makenna Turner i MS, RPA-CAttender: JOE BAIRD MDConsultant: Rody Pham MD 04/17/2020 10:58:00 AM EDT - 04/17/2020 10:58:00 AM EDT [facility] Outpatient Attender: Brenda Love/Meena/Walter/Jono ndl 04/16/2020 11:00:00 AM EDT [facility] ([facility]) Outpatient Attender: ALEXANDRA FritzA-ONCCACTLiliana 03/19 12:00:00 AM EDT - 03/29/2020 01:19:16 PM EDT 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 [facility] 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 Outpatient Attender: ALEXANDRA XIE NP 03/29/2020 12:00:00 AM EDT [facility] Outpatient Referrer: ALEXANDRA XIE NP 03/26/2020 12 :00:00 AM EDT 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 [facility] 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 Outpatient Attender: JOE BAIRD MDConsultant: Rody fraser MD 03/20/2020 01:21:00 PM EDT - 03/20/2020 01:21:00 PM EDT [facility] Outpatient Attender: ALEXANDRA FritzA-ONCCACTR 02/17 12:00:00 AM EDT - 03/08/2020 03:47:51 PM EDT 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 [facility] 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 Outpatient Attender: Brenda Love/Meena/Walter/Jono ndl 02/23/2020 01:30:00 PM EDT [facility] ([facility]) Outpatient Attender: [employer] 02/21/2020 12:00:00 AM EDT [facility] Outpatient Attender: ALEXANDRA XIE NPAttender: Colt Leonid Huizar-ONCCACTR 02/14/2020 12:00:00 AM EDT - 02/15/2020 08:32:44 AM EDT 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 [facility] 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 Outpatient<td ID="encounterTypeDescripti onID4">telephone conversation</td><td>Rody Pham MD</td><td>[facility], [facility]</td><td>02/10/2020</td><td>2:49PM</td><td>3:43PM</td><td><content ID="encounterDiagnosisID4-0">Hyponatremia</content>, <content ID="encounterDiagnosisID4-1">Large Intestine Neoplasm, Benign - Adenomatous Polyp</content>, <content ID="encounterDiagnosisID4-2">Lung Neoplasm Malignant Adenocarcinoma</content>, <content ID="encounterDiagnosisID4- 3">Osteopenia</content>, <content ID="encounterDiagnosisID4-4">Benign Prostatic Hypertrophy</content>, <content ID="encounterDiagnosisID4-5">Difficulty Breathing (Dyspnea)</content></td> Attender: Rody Pham MD [facility], [facility] 02/10/2020 02:49:00 PM EDT - 02/10/2020 03:43:55 PM ED T Difficulty Breathing (Dyspnea)Difficulty Breathing (Dyspnea)Difficulty Breathing (Dyspnea)Difficulty Breathing (Dyspnea)Difficulty Breathing (Dyspnea)Difficulty Breathing (Dyspnea)Difficulty Breathing (Dyspnea)Difficulty Breathing (dyspnea) HyponatremiaHyponatremiaHyponatremiaHyponatremiaHyponatremiaHyponatremiaHyponatr emiaHyponatremiaBenign Prostatic HypertrophyOsteopeniaLung Neoplasm Malignant AdenocarcinomaLarge Intestine Neoplasm, Benign - Adenomatous PolypBenign Prostatic HypertrophyOsteopeniaLung Neoplasm Malignant AdenocarcinomaLarge Intestine Neoplasm, Benign - Adenomatous PolypBenign Prostatic HypertrophyOsteopeniaLung Neoplasm Malignant AdenocarcinomaLarge Intestine Neoplasm, Benign - Adenomatous PolypBenign Prostatic HypertrophyOsteopeniaLung Neoplasm Malignant AdenocarcinomaLarge Intestine Neoplasm, Benign - Adenomatous PolypBenign Prostatic HypertrophyOsteopeniaLung Neoplasm Malignant AdenocarcinomaLarge Intestine Neoplasm, Benign - Adenomatous PolypBenign Prostatic HypertrophyOsteopeniaLung Neoplasm Malignant AdenocarcinomaLarge Intestine Neoplasm, Benign - Adenomatous PolypBenign Prostatic HypertrophyOsteopeniaLung Neoplasm Malignant AdenocarcinomaLarge Intestine Neoplasm, Benign - Adenomatous PolypBenign Prostatic HypertrophyOsteopeniaLung Neoplasm Malignant AdenocarcinomaLarge Intestine Neoplasm, Benign - Adenomatous Polyp [place] ([facility]) Difficulty Breathing (Dyspnea) Difficulty Breathing (Dyspnea) Difficulty Breathing (Dyspnea) Difficulty Breathing (Dyspnea) Difficulty Breathing (Dyspnea) Difficulty Breathing (Dyspnea) Difficulty Breathing (Dyspnea) Difficulty Breathing (dyspnea) Hyponatremia Hyponatremia Hyponatremia Hyponatremia Hyponatremia Hyponatremia Hyponatremia Hyponatremia Benign Prostatic Hypertrophy Osteopenia Lung Neoplasm Malignant Adenocarcinoma Large Intestine Neoplasm, Benign - Adeno matous Polyp Benign Prostatic Hypertrophy Osteopenia Lung Neoplasm Malignant Adenocarcinoma Large Intestine Neoplasm, Benign - Adeno matous Polyp Benign Prostatic Hypertrophy Osteopenia Lung Neoplasm Malignant Adenocarcinoma Large Intestine Neoplasm, Benign - Adeno matous Polyp Benign Prostatic Hypertrophy Osteopenia Lung Neoplasm Malignant Adenocarcinoma Large Intestine Neoplasm, Benign - Adeno matous Polyp Benign Prostatic Hypertrophy Osteopenia Lung Neoplasm Malignant Adenocarcinoma Large Intestine Neoplasm, Benign - Adeno matous Polyp Benign Prostatic Hypertrophy Osteopenia Lung Neoplasm Malignant Adenocarcinoma Large Intestine Neoplasm, Benign - Adeno matous Polyp Benign Prostatic Hypertrophy Osteopenia Lung Neoplasm Malignant Adenocarcinoma Large Intestine Neoplasm, Benign - Adeno matous Polyp Benign Prostatic Hypertrophy Osteopenia Lung Neoplasm Malignant Adenocarcinoma Large Intestine Neoplasm, Benign - Adeno matous Polyp Outpatient Attender: Colt Huizar-ONCCACTR 01/23 12:00:00 AM EDT - 01/24/2020 03:55:53 PM EDT 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 [facility] 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 Outpatient Attender: Colt Huizar-ONCCACTR 01/02 12:00:00 AM EDT - 01/03/2020 03:23:54 PM EDT 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 [facility] 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 Outpatient Referrer: Jam MATA 12/27/2019 12:00 :00 AM EDT 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 [facility] 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 Outpatient Referrer: Jam MATA 12/27/2019 12:00:00 AM EDT [facility] Outpatient Attender: Colt Huizar-ONCCACTR 12/13 12:00:00 AM EST - 12/13/2019 03:43:16 PM EST 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 [facility] 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 Outpatient<td ID="encounterTypeDescripti onID5">followup</td><td>Abdi Hager</td><td>[facility], [facility]</td><td>11/29/2019</td><td>12:29PM</td><td>1:10PM</td><td><content ID="encounterDiagnosisID5-0">Hyponatremia</content>, <content ID="encounterDiagnosisID5-1">Lung Neoplasm Malignant Adenocarcinoma</content></td> Attender: Abdi MATA [facility] 11/29/2019 12:29:00 PM EST - 11/29/2019 01:10:00 PM ES T HyponatremiaHyponatremiaHyponatremiaHyponatremiaHyponatremiaHyponatremiaHyponatr Neoplasm Malignant AdenocarcinomaLung Neoplasm Malignant AdenocarcinomaLung Neoplasm Malignant AdenocarcinomaLung Neoplasm Malignant AdenocarcinomaLung Neoplasm Malignant AdenocarcinomaLung Neoplasm Malignant AdenocarcinomaLung Neoplasm Malignant AdenocarcinomaLung Neoplasm Malignant AdenocarcinomaLung Neoplasm Malignant Adenocarcinoma [place] ([facility]) Hyponatremia Hyponatremia Hyponatremia Hyponatremia Hyponatremia Hyponatremia Hyponatremia Hyponatremia Hyponatremia Lung 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 Outpatient Attender: ALEXANDRA FritzA-ONCCACTR 10/21 12:00:00 AM EST - 11/17/2019 02:40:20 PM EST 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 [facility] 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 Outpatient Attender: ALEXANDRA Huizar-ONCCACTR 06/2020 12:00:00 AM EST - 10/27/2019 01:59:26 PM EST 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 [facility] 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 Outpatient<td ID="encounterTypeDescripti onID6">Transitional Care Management HIGH complexity</td><td>Abdi Hong PA-C</td><td>[facility], [facility]</td><td>10/25/2019</td><td>12:12PM</td><td>1:30PM</td><td><content ID="encounterDiagnosisID6-0">Hyponatremia</content></td> Attender: Abdi MATA [facility] 10/25/2019 12:12:00 P M EST - 10/25/2019 01:30:00 PM EST HyponatremiaHyponatremiaHyponatremiaHyponatremiaHyponatremiaHyponatremiaHyponatr emiaHyponatremiaHyponatremiaHyponatremiaHyponatremia [place] ([facility]) Hyponatremia Hyponatremia Hyponatremia Hyponatremia Hyponatremia Hyponatremia Hyponatremia Hyponatremia Hyponatremia Hyponatremia Hyponatremia Outpatient<td ID="encounterTypeDescripti onID7">TCMNV phone call- NO CHARGE</td><td>Abdi Hong PA-C</td><td>[facility]</td><td>10/21/2019</td><td>08/09/2019 12:09PM</td><td>08/09/2019 11:59PM</td><td></td> Attender: Abdi MATA [facility] 10/21/2019 12:09:00 PM EST - 08/09/2019 11:59:00 PM EDT [place] ([facility]) Outpatient Attender: ALEXANDRA Huizar-ONCCACTR 11/2019 12:00:00 AM EST - 10/20/2019 11:37:00 AM EST 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 [facility] 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 Outpatient Attender: ALEXANDRA XIE NP 10/20/2019 12:00:00 AM [facility] Outpatient Attender: ALEXANDRA XIE NP 10/20/2019 12:00:00 AM [facility] Inpatient Attender: VINCENT ISSAConsultant: Rody wiggins MD 10/13/2019 08:00:00 PM EST - 10/19/2019 02:15:00 PM EST [facility] Patient discharged. Inpatient Attender: Adelina MALHOTRA ttender: LIGIA BEE [id number]: PARVEEN OLGUIN MDAdmitter: Adelina Garcia DOReferrer: Adelina Garcia DOConsultant: LIGIA BEE [id number] 10/08/2019 12:00:00 AM EST - 10/13/2019 06:04:00 PM EST Cerebral infarction, unspecified [facility] Cerebral infarction, unspecified Patient discharged. Outpatient Attender: ALEXANDRA XIE NP [id number] 02/2019 12:00:00 AM EST - 09/22/2019 02:18:50 PM EST 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 [facility] 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 Outpatient Referrer: ALEXANDRA XIE NP 09/12/2019 12 :00:00 AM EST 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 [facility] 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 Immunizations Vaccine Date Status Description Data Source(s) Influenza, high dose seasonal 06/07/2020 12:12:00 PM EDT complet ed Fluzone High Dose 5 06/07/2020 Complete (Reported) Patient Levy SM[facility]ASH[facility] ([facility]) Influenza Quad High Dose IM Pres Free >=65YO 06/07/2020 12:0 0:00 AM EDT completed Influenza Quad High Dose IM Pres Free >=65YO 06/07/2020 [facility] This CVX code allows reporting of a vacc ination when formulation is unknown (for example, when recording a Influenza vaccination when noted on a vaccination card) 06/07/2020 12:00:00 AM EDT completed Influenza, Unspecified 06/07/[address] [place] [address] Pneumococcal conjugate PCV 13 06/07/2020 12:00:00 AM EDT complet ed Pneumococcal Conjugate PCV13 06/07/2020, 08/16/2015 [facility] Medications Medication Brand Name Start Date Product Form Dose Route Admi nistrative Instructions Pharmacy Instructions Status Indications Reaction Description Data Source(s) iohexol (OMNIPAQUE) 300 MG/ML contrast injection 100 mL [id number] 10/31/2020 01:30:00 PM EST 100 mL Intravenous completed 100 mL, Intravenous, 1 TIME IMAGING, Thu10/31/20 at 1330, For 1 dose, Imaging Protocol [facility] Medication administered onsite iohexol (OMNIPAQUE) 240 MG/ML contrast 20 mL [id number] 01:15:00 PM EST 20 mL Oral completed 20 mL, Oral, 1 TIME IMAGING, Thu10/31/20 at 1315, For 1 dose, Imaging Protocol
Dilute before administering
[facility] Medication administered onsite iohexol (OMNIPAQUE) 240 MG/ML contrast 20 mL [id number] 01:05:05 PM EST 20 mL Oral active 20 mL, Oral, IMG once PRN, Contrast, Starting Thu10/31/20 at 1305, For 1 day, Imaging Protocol
Dilute before administering
[facility] Medication administered onsite pembrolizumab (KEYTRUDA) 200 mg in sodium chloride 0.9 % 50 mL chemo infusion 10/23/2020 02:00:00 PM EST 200 mg Intravenous c ompleted Primary adenocarcinoma of right lung 200 mg, Intravenous, Admi nister over 30 Minutes, Once, 10/23/20 at 1400, For 1 dose [facility] Primary adenocarcinoma of right lung Medication administered onsite pembrolizumab (KEYTRUDA) 200 mg in sodium chloride 0.9 % 50 mL chemo infusion 09/27/2020 03:00:00 PM EST 200 mg Intravenous c ompleted Primary adenocarcinoma of right lung 200 mg, Intravenous, Admi nister over 30 Minutes, Once, Barbara 09/27/20 at 1500, For 1 dose [facility] Primary adenocarcinoma of right lung Medication administered onsite pembrolizumab (KEYTRUDA) 200 mg in sodium chloride 0.9 % 50 mL chemo infusion 09/03/2020 12:15:00 PM EST 200 mg Intravenous c ompleted Primary adenocarcinoma of right lung 200 mg, Intravenous, Admi nister over 30 Minutes, Once, 09/03/20 at 1215, For 1 dose [facility] Primary adenocarcinoma of right lung Medication administered onsite pembrolizumab (KEYTRUDA) 200 mg in sodium chloride 0.9 % 50 mL chemo infusion 08/13/2020 02:00:00 PM EDT 200 mg Intravenous c ompleted Primary adenocarcinoma of right lung 200 mg, Intravenous, Admi nister over 30 Minutes, Once, Thu08/13/20 at 1400, For 1 dose [facility] Primary adenocarcinoma of right lung Medication administered onsite atorvastatin 20 MG Oral Tablet Atorvastatin Calcium 07/24/2020 1 2:00:00 AM EDT active [facility] ( [facility]) pembrolizumab (KEYTRUDA) 200 mg in sodium chloride 0.9 % 50 mL chemo infusion 07/19/2020 12:00:00 PM EDT 200 mg Intravenous c ompleted Primary adenocarcinoma of right lung 200 mg, Intravenous, Admi nister over 30 Minutes, Once, Barbara 07/19/20 at 1200, For 1 dose [facility] Primary adenocarcinoma of right lung Medication administered onsite iohexol (OMNIPAQUE) 240 MG/ML contrast 20 mL [id number] 12:30:00 PM EDT 20 mL Oral completed 20 mL, Oral, 1 TIME IMAGING, 07/10/20 at 1230, For 1 dose, Imaging Protocol
Dilute before administering
[facility] Medication administered onsite iohexol (OMNIPAQUE) 300 MG/ML contrast injection 100 mL [id number] 1107/10/2020 12:30:00 PM EDT 100 mL Intravenous completed 100 mL, Intravenous, 1 TIME IMAGING, 07/10/20 at 1230, For 1 dose, Imaging Protocol [facility] Medication administered onsite iohexol (OMNIPAQUE) 240 MG/ML contrast 20 mL [id number] 12:20:37 PM EDT 20 mL Oral active 20 mL, Oral, IMG once PRN, Contrast, Starting 07/10/20 at 1220, For 1 day, Imaging Protocol
Dilute before administering
[facility] Medication administered onsite Levetiracetam 500 MG Oral Tablet levETIRAcetam 500 MG Oral Tablet levETIRAcetam 500 MG Oral Tablet 07/04/2020 12:00:00 AM EDT active levetiracetam 500 MG Oral Tablet [place] ([facility]) pembrolizumab (KEYTRUDA) 200 mg in sodium chloride 0.9 % 50 mL chemo infusion 06/21/2020 01:15:00 PM EDT 200 mg Intravenous c ompleted Primary adenocarcinoma of right lung 200 mg, Intravenous, Admi nister over 30 Minutes, Once, Barbara 06/21/20 at 1315, For 1 dose [facility] Primary adenocarcinoma of right lung Medication administered onsite Famotidine 40 MG Oral Tablet Famotidine 40 MG Oral Tablet 12:00:00 AM EDT active famotidine 40 MG Oral Tablet [place] ([facility]) 30 ACTUAT umeclidinium 0.0625 MG/ACTUAT / vilanterol 0.025 MG/ACTUAT Dry Powder Inhaler [Anoro] Anoro Ellipta 06/11/2020 12:00:00 AM EDT RESPIRA TORY completed [facility] ([facility]) pembrolizumab (KEYTRUDA) 200 mg in sodium chloride 0.9 % 50 mL chemo infusion 05/31/2020 01:30:00 PM EDT 200 mg Intravenous c ompleted Primary adenocarcinoma of right lung 200 mg, Intravenous, Admi nister over 30 Minutes, Once, Barbara 05/31/20 at 1330, For 1 dose [facility] Primary adenocarcinoma of right lung Medication administered onsite Bevespi Aerosphere Bevespi Aerosphere 05/16/2020 12:00:00 AM EDT ORAL completed [facility] ([facility]) pembrolizumab (KEYTRUDA) 200 mg in sodium chloride 0.9 % 50 mL chemo infusion 05/10/2020 01:00:00 PM EDT 200 mg Intravenous c ompleted Primary adenocarcinoma of right lung 200 mg, Intravenous, Admi nister over 30 Minutes, Once, Barbara 05/10/20 at 1300, For 1 dose [facility] Primary adenocarcinoma of right lung Medication administered onsite pembrolizumab (KEYTRUDA) 200 mg in sodium chloride 0.9 % 50 mL chemo infusion 04/19/2020 01:30:00 PM EDT 200 mg Intravenous c ompleted Primary adenocarcinoma of right lung 200 mg, Intravenous, Admi nister over 30 Minutes, Once, Barbara 04/19/20 at 1330, For 1 dose [facility] Primary adenocarcinoma of right lung Medication administered onsite Yupelri Yupelri 04/16/2020 12:00:00 AM EDT complet ed [facility] ([facility] ) Yupelri Yupelri 04/16/2020 12:00:00 AM EDT complet ed [facility] ([facility] ) Sodium Chloride 1000 MG Oral Tablet Sodium Chloride 1 GM Oral Tablet Sodium Chloride 1 GM Oral Tablet 04/02/2020 12:00:00 AM EDT 4 active sodium chloride 1000 MG Oral Tablet [place] ([facility]) pembrolizumab (KEYTRUDA) 200 mg in sodium chloride 0.9 % 50 mL chemo infusion 03/29/2020 12:00:00 PM EDT 200 mg Intravenous c ompleted Primary adenocarcinoma of right lung 200 mg, Intravenous, Admi nister over 30 Minutes, Once, Barbara 03/29/20 at 1200, For 1 dose [facility] Primary adenocarcinoma of right lung Medication administered onsite pembrolizumab (KEYTRUDA) 200 mg in sodium chloride 0.9 % 50 mL chemo infusion 03/08/2020 02:15:00 PM EDT 200 mg Intravenous c ompleted Primary adenocarcinoma of right lung 200 mg, Intravenous, Admi nister over 30 Minutes, Once, Barbara 03/08/20 at 1415, For 1 dose [facility] Primary adenocarcinoma of right lung Medication administered onsite Flonase Allergy Relief 50 MCG/ACT Nasal Suspension Carolyn nase Allergy Relief 50 MCG/ACT Nasal Suspension 03/07/2020 12:00:00 AM EDT active fluticasone propionate 0.05 MG/ACTUAT Metered Dose Nasal [place] [Flonase] [place] ([facility]) Flonase Allergy Relief 50 MCG/ACT Nasal Suspension Carolyn nase Allergy Relief 50 MCG/ACT Nasal Suspension 02/29/2020 12:00:00 AM EDT aborted fluticasone propionate 0.05 MG/ACTUAT Metered Dose Nasal [place] [Flonase] [place] ([facility]) Albuterol 0.833 MG/ML / Ipratropium [place] 0.167 MG/M L Inhalant Solution Ipratropium [place]/Albuterol Sulfate 02/27/2020 12:00:00 AM EDT completed [facility] ([facility] ) Stiolto Respimat Stiolto Respimat 02/27/2020 12:00:00 AM EDT RESPIRATORY completed [facility] ([facility], ) Albuterol 0.833 MG/ML / Ipratropium [place] 0.167 MG/M L Inhalant Solution Ipratropium [place]/Albuterol Sulfate 02/27/2020 12:00:00 AM EDT active [facility] ([facility] ) 30 ACTUAT umeclidinium 0.0625 MG/ACTUAT / vilanterol 0.025 MG/ACTUAT Dry Powder Inhaler [Anoro] Anoro Ellipta 02/23/2020 12:00:00 AM EDT RESPIRA TORY completed [facility] ([facility] ) pembrolizumab (KEYTRUDA) 200 mg in sodium chloride 0.9 % 50 mL chemo infusion 02/14/2020 02:00:00 PM EDT 200 mg Intravenous c ompleted Primary adenocarcinoma of right lung 200 mg, Intravenous, Admi nister over 30 Minutes, Once, e 02/14/20 at 1400, For 1 dose [facility] Primary adenocarcinoma of right lung Medication administered onsite ferric carboxymaltose (INJECTAFER) 750 m g in sodium chloride 0.9 % 250 mL infusion 02/14/2020 01:45:00 PM EDT 750 mg Intravenous completed Iron deficiency anemia, unspecified iron deficiency anemia type 750 mg, Intravenous, Administer over 16 Minutes
Once, e 02/14/20 at 1345, For 1 dose [facility] Iron deficiency anemia, unspecified iron deficiency anemia type Medication administered onsite gabapentin 100 MG Oral Capsule Gabapentin 100 MG Oral Capsule Gabapentin 100 MG Oral Capsule 02/10/2020 12:00:00 AM EDT activ e gabapentin 100 MG Oral Capsule [place] ([facility]) pembrolizumab (KEYTRUDA) 200 mg in sodium chloride 0.9 % 50 mL chemo infusion 01/24/2020 02:30:00 PM EDT 200 mg Intravenous c ompleted Primary adenocarcinoma of right lung 200 mg, Intravenous, Admi nister over 30 Minutes, Once, 01/24/20 at 1430, For 1 dose [facility] Primary adenocarcinoma of right lung Medication administered onsite Flonase Allergy Relief 50 MCG/ACT Nasal Suspension Carolyn nase Allergy Relief 50 MCG/ACT Nasal Suspension 01/20/2020 12:00:00 AM EDT aborted fluticasone propionate 0.05 MG/ACTUAT Metered Dose Nasal [place] [Flonase] [facility]) Loratadine 10 MG Oral Tablet Loratadine 10 MG Oral Tablet 12:00:00 AM EDT 1 active loratadine 10 MG Oral Tablet [facility]) pembrolizumab (KEYTRUDA) 200 mg in sodium chloride 0.9 % 50 mL chemo infusion 01/03/2020 01:45:00 PM EDT 200 mg Intravenous c ompleted Primary adenocarcinoma of right lung 200 mg, Intravenous, Admi nister over 30 Minutes, Once, 01/03/20 at 1345, For 1 dose [facility] Primary adenocarcinoma of right lung Medication administered onsite iohexol (OMNIPAQUE) 300 MG/ML contrast injection 50 mL [id number] 12/27/2019 02:45:00 PM EDT 50 mL Given by IV completed 50 mL, Given by IV, 1 TIME IMAGING, 12/27/19 at 1445, For 1 dose [facility] Medication administered onsite Levetiracetam 500 MG Oral Tablet levETIRAcetam 500 MG Oral Tablet levETIRAcetam 500 MG Oral Tablet 12/20/2019 12:00:00 AM EST 1 aborted levetiracetam 500 MG Oral Tablet [place] ([facility]) pembrolizumab (KEYTRUDA) 200 mg in sodium chloride 0.9 % 50 mL chemo infusion 12/13/2019 02:30:00 PM EST 200 mg Intravenous c ompleted Primary adenocarcinoma of right lung 200 mg, Intravenous, Admi nister over 30 Minutes, Once, 12/13/19 at 1430, For 1 dose [facility] Primary adenocarcinoma of right lung Medication administered onsite Finasteride 5 MG Oral Tablet Finasteride 5 MG Oral Tablet 12:00:00 AM EST 1 active finasteride 5 MG Oral Tablet [facility]) Sodium Chloride 1000 MG Oral Tablet Sodium Chloride 1 GM Oral Tablet Sodium Chloride 1 GM Oral Tablet 11/29/2019 12:00:00 AM EST 4 aborted sodium chloride 1000 MG Oral Tablet [place] ([facility]) Tamsulosin hydrochloride 0.4 MG Oral [place] [Flomax] Flomax 0.4 MG Oral Capsule Flomax 0.4 MG Oral Capsule 11/29/2019 12:00:00 AM EST 1 active tamsulosin hydrochloride 0.4 MG Oral Capsule [Flomax] [facility]) pembrolizumab (KEYTRUDA) 200 mg in sodium chloride 0.9 % 50 mL chemo infusion 11/17/2019 01:30:00 PM EST 200 mg Intravenous c ompleted Primary adenocarcinoma of right lung 200 mg, Intravenous, Admi nister over 30 Minutes, Once, Barbara 11/17/19 at 1330, For 1 dose [facility] Primary adenocarcinoma of right lung Medication administered onsite Sodium Chloride 1000 MG Oral Tablet Sodium Chloride 1 GM Oral Tablet Sodium Chloride 1 GM Oral Tablet 11/15/2019 12:00:00 AM EST 4 aborted sodium chloride 1000 MG Oral Tablet [facility]) Levetiracetam 500 MG Oral Tablet levETIRAcetam 500 MG Oral Tablet levETIRAcetam 500 MG Oral Tablet 11/10/2019 12:00:00 AM EST 1 aborted levetiracetam 500 MG Oral Tablet [facility]) pembrolizumab (KEYTRUDA) 200 mg in sodium chloride 0.9 % 50 mL chemo infusion 10/27/2019 12:45:00 PM EST 200 mg Intravenous c ompleted Primary adenocarcinoma of right lung 200 mg, Intravenous, Admi nister over 30 Minutes, Once, Barbara 10/27/19 at 1245, For 1 dose [facility] Primary adenocarcinoma of right lung Medication administered onsite Sodium Chloride 1000 MG Oral Tablet Sodium Chloride 1 GM Oral Tablet Sodium Chloride 1 GM Oral Tablet 10/25/2019 12:00:00 AM EST aborted sodium chloride 1000 MG Oral Tablet [facility]) Oseltamivir 75 MG Oral Capsule [Tamiflu] Tamiflu 75 MG Oral Capsule Tamiflu 75 MG Oral Capsule 10/25/2019 12:00:00 AM EST co mpleted oseltamivir 75 MG Oral Capsule [Tamiflu] [place] ([facility]) pantoprazole 40 MG Delayed Release Oral Tablet pantoprazole (PROTONIX) EC tablet 40 mg pantoprazole (PROTONIX) EC tablet 40 mg 10/14/2019 07:30:[address] 40 mg Oral active 40 mg, Ora l, Before Breakfast, First dose on Thu10/14/19 at 0730, For 28 days
Do not crush or chew
[facility] Medication administered onsite Levetiracetam 500 MG Oral Tablet Levetiracetam 10/13/2019 12:00:00 AM EST ORAL active [facility] ([facility]) Sodium Chloride 1000 MG Oral Tablet Sodium Chloride 1 GM Oral Tablet Sodium Chloride 1 GM Oral Tablet 10/13/2019 12:00:00 AM EST 2 g Oral active Take 2 tablets by mouth Three times daily with meals for 5 days [facility] Levetiracetam 500 MG Oral Tablet levETIRAcetam 500 MG Oral Tablet (KEPPRA) levETIRAcetam 500 MG Oral Tablet (KEPPRA) 10/13/2019 12:00:00 AM EST 500 mg Oral active Take 1 tablet by aileen th Two Times Daily [facility] Azithromycin 250 MG Oral Tablet azithromycin (ZITHROMA X) tablet 500 mg azithromycin (ZITHROMAX) tablet 500 mg 10/12/2019 09:00:00 AM EST 5 00 mg Oral active 500 mg, Oral, D aily Standard, First dose on Thu10/12/19 at 0900, For 3 days [facility] Medication administered onsite potassium chloride (K-DUR,KLOR-CON) dissolvable tablet 40 mE q 51400-490-80 10/12/2019 05:00:00 AM EST 40 meq Oral completed 40 mEq, Oral, 2 Times Daily, First dose on Thu10/12/19 at 0500, For 2 doses
May be dissolved in water for patients with a G-Tube or unable to swallow. If concern for clogging G-Tube, may contact Pharmacy to switch formulation to a powder packet.
[facility] Medication administered onsite pantoprazole (PROTONIX) 2 mg/mL oral suspension 40 mg 10/11/2019 07:30:00 AM EST 40 mg Oral aborted 40 mg, O ral, Before Breakfast, First dose on Thu10/11/19 at 0730, For 30 days [facility] Medication administered onsite 0.4 ML Enoxaparin sodium 100 MG/ML Prefi lled Syringe enoxaparin sodium (LOVENOX) injection 40 mg enoxaparin sodium (LOVENOX) injection 40 mg 10/10/2019 09:00:00 AM EST 40 mg Subcutaneous active 40 mg, Subcutaneous, Daily Standard, First dose on Thu10/10/19 at 0900, For 30 days [facility] Medication administered onsite Ondansetron 4 MG Disintegrating Oral Tab let ondansetron (ZOFRAN-ODT) disintegrating tablet 4 mg ondansetron (ZOFRAN-ODT) disintegrating tablet 4 mg 10/10/2019 08:30:21 AM EST 4 mg Oral active 4 mg, Oral, Every 8 hours PRN, Nausea, Vomiting, Starting Thu10/10/19 at 0830, For 30 days
Dissolve on tongue.
[facility] Medication administered onsite Sodium Chloride 1000 MG Oral Tablet sodium chloride ta blet 2 g sodium chloride tablet 2 g 10/10/2019 08:00:00 AM EST 2 g Oral active 2 g, Oral, Three Times Daily-With Meals, First dose (after last modification) on Thu10/10/19 at 0800, For 88 doses [facility] Medication administered onsite Levetiracetam 500 MG Oral Tablet levETIRAcetam (KEPPRA ) tablet 500 mg levETIRAcetam (KEPPRA) tablet 500 mg 10/09/2019 01:15:00 PM EST 500 m g Oral active 500 mg, Oral, 2 Times Daily, First dose on 10/09/19 at 1315, For 30 days [facility] Medication administered onsite Sodium Chloride 1000 MG Oral Tablet sodium chloride ta blet 1 g sodium chloride tablet 1 g 10/09/2019 01:15:00 PM EST 1 g Oral aborted 1 g, Oral, Three Times Daily-With Meals, First dose on 10/09/19 at 1315, For 30 days [facility] Medication administered onsite Tamsulosin hydrochloride 0.4 MG Oral Capsule tamsulosi n (FLOMAX) capsule 0.4 mg tamsulosin (FLOMAX) capsule 0.4 mg 10/09/2019 09:00:00 AM EST 0.4 mg Oral active 0.4 mg, Oral, Daily Standard, First dose on 10/09/19 at 0900, For 30 days
Swallow whole. Do not crush, chew or open.
[facility] Medication administered onsite atorvastatin 40 MG Oral Tablet atorvastatin (LIPITOR) tablet 40 mg atorvastatin (LIPITOR) tablet 40 mg 10/08/2019 09:00:00 PM EST 40 mg Oral active 40 mg, Oral, Every evening, First dose on 10/08/19 at 2100, For 30 days [facility] Medication administered onsite 1 ML Lorazepam 2 MG/ML Injection LORazepam (ATIVAN) in jection 1 mg LORazepam (ATIVAN) injection 1 mg 10/08/2019 07:00:00 PM EST 1 mg Intraveno us completed 1 mg, Intravenous, Once, Sat at 1900, For 1 dose [facility] Medication administered onsite Ceftriaxone 1000 MG Injection cefTRIAXone (ROCEPHIN) i nfusion 1 g (premix) cefTRIAXone (ROCEPHIN) infusion 1 g (premix) 10/08/2019 10:00:00 AM EST 1 g Intravenous aborted 1 g, Intraven ous, at 100 mL/hr, Every 24 hours, First dose on 10/08/19 at 1000, For 7 days
Discouraged Uses: Empiric treatment of post-surgical meningitis (ceftazidime preferred)
[facility] Medication administered onsite azithromycin (ZITHROMAX) 500 mg in sodium chloride 0.9 % 250 mL (2 mg/mL) IVPB 10/08/2019 10:00:00 AM EST 500 mg Intravenous aborte d 500 mg, Intravenous, at 250 mL/hr, Every 24 hours, First dose on 10/08/19 at 1000, For 5 days [facility] Medication administered onsite NaCl infusion 0.9 % [id number] 10/08/2019 09:30:00 AM EST Intravenous aborted at 75 mL/hr, Intrave nous, Continuous, Starting 10/08/19 at 0930, For 30 days [facility] Medication administered onsite pantoprazole 4 MG/ML Injectable Solution pantoprazole (PROTONIX) injection 40 mg pantoprazole (PROTONIX) injection 40 mg 10/08/2019 09:00:00 AM EST 40 mg Intravenous aborted 40 mg, Intrav enous, Daily Standard, First dose on 10/08/19 at 0900, For 30 days [facility] Medication administered onsite sodium chloride 0.9 % bolus 500 mL [id number] 10/08/2019 06:00:00 AM EST 500 mL Intravenous completed 500 mL, Intravenous, Once, 10/08/19 at 0600, For 1 dose [facility] Medication administered onsite lidocaine (XYLOCAINE) 2 % urojet 10 mL [id number] 03:15:00 AM EST 10 mL Urethral completed 10 mL, Urethr al, Once, 10/08/19 at 0315, For 1 dose [facility] Medication administered onsite 4 ML Labetalol hydrochloride 5 MG/ML [place] labetalol (NORMODYNE,TRANDATE) injection 20 mg labetalol (NORMODYNE,TRANDATE) injection 20 mg 019 02:15:00 AM EST 20 mg Intravenous completed 20 mg, Intravenous, Once, 10/08/19 at 0215, For 1 dose [facility] Medication administered onsite sodium chloride infusion 0.9 % [id number] 10/08/2019 01:45:00 AM ES T 50 mL Intravenous completed Intravenous, Once, 10/08/19 at 0145, For 1 dose
After completion of Alteplase flush line with 50 ml NS at the same rate as the Alteplase infusion.
[facility] Medication administered onsite sodium chloride 0.9 % bolus 500 mL [id number] 09/22/2019 12:15:00 PM EST 500 mL Intravenous completed Hyponatremia 500 m L, Intravenous, Once, Barbara 09/22/19 at 1215, For 1 dose
500cc over 1 hour
[facility] Hyponatremia Medication administered onsite pembrolizumab (KEYTRUDA) 200 mg in sodium chloride 0.9 % 50 mL chemo infusion 09/22/2019 12:00:00 PM EST 200 mg Intravenous c ompleted Primary adenocarcinoma of right lung 200 mg, Intravenous, Admi nister over 30 Minutes, Once, Barbara 09/22/19 at 1200, For 1 dose [facility] Primary adenocarcinoma of right lung Medication administered onsite iohexol (OMNIPAQUE) 240 MG/ML contrast 20 mL [id number] 03:30:00 PM EST 20 mL Oral completed 20 mL, Oral, 1 TIME IMAGING, Thu09/12/19 at 1530, For 1 dose, Imaging Protocol
Dilute before administering
[facility] Medication administered onsite iohexol (OMNIPAQUE) 300 MG/ML contrast injection 100 mL [id number] 09/12/2019 03:30:00 PM EST 100 mL Intravenous completed 100 mL, Intravenous, 1 TIME IMAGING, Thu09/12/19 at 1530, For 1 dose, Imaging Protocol [facility] Medication administered onsite iohexol (OMNIPAQUE) 240 MG/ML contrast 20 mL [id number] 03:15:27 PM EST 20 mL Oral active 20 mL, Oral, IMG once PRN, Contrast, Starting Thu09/12/19 at 1515, For 1 day, Imaging Protocol
Dilute before administering
[facility] Medication administered onsite Sucralfate 1000 MG Oral Tablet Sucralfate 1GM Oral Tab let Sucralfate 1GM Oral Tablet 09/09/2019 12:00:00 AM EST active sucralfate 1000 MG Oral Tablet [place] ([facility]) Loratadine 10 MG Oral Tablet Loratadine 10MG Oral Tabl et Loratadine 10MG Oral Tablet 08/17/2019 12:00:00 AM EDT 1 aborted loratadine 10 MG Oral Tablet [place] ([facility]) 200 ACTUAT Albuterol 0.09 MG/ACTUAT Mete red Dose Inhaler [Ventolin] Ventolin HFA 108 (90 Base)MCG/ACT Inhalation Aerosol Solution Ventolin HFA 108 (90 Base)MCG/ACT Inhalation Aerosol Solution 08/01/2019 12:00:00 AM EDT completed [id number] 200 ACTUAT albuterol 0.09 MG/ACTUAT Metered Dose Inhaler [Ventolin] [place] ([facility]) Tamsulosin hydrochloride 0.4 MG Oral Capsule [Flomax] Flomax 0.4MG Oral Capsule Flomax 0.4MG Oral Capsule 07/04/2019 12:00:00 AM EDT 1 aborted tamsulosin hydrochloride 0.4 MG Oral Capsule [Flomax] [place] ([facility]) gabapentin 100 MG Oral Capsule Gabapentin 100MG Oral C apsule Gabapentin 100MG Oral Capsule 03/08/2019 12:00:00 AM EDT abort ed gabapentin 100 MG Oral Capsule [place] ([facility]) Finasteride 5 MG Oral Tablet Finasteride 5MG Oral Tabl et Finasteride 5MG Oral Tablet 02/08/2019 12:00:00 AM EDT 1 aborted finasteride 5 MG Oral Tablet [place] ([facility]) Ranitidine 150 MG Oral Tablet ranitidine (ZANTAC) 150 MG tablet ranitidine (ZANTAC) 150 MG tablet 02/08/2019 12:00:00 AM EDT aborted TAKE 1 TABLET BY MOUTH TWICE A DAY NEEDED [facility] Flonase Allergy Relief 50MCG/ACT Nasal Suspension Flon ase Allergy Relief 50MCG/ACT Nasal Suspension 11/17/2018 12:00:00 AM EST aborted fluticasone propionate 0.05 MG/ACTUAT Metered Dose Nasal [place] [Flonase] [place] ([facility]) ALPHA LIPOIC ACID PO 250 mg Oral aborted Take 250 mg by mouth [facility] Insurance Providers Payer name Policy type / Coverage type Policy ID Covered libertarian ID Covered libertarian's relationship to [place] Policy [place] Plan Information MEDICARE [id number] SP [id number] V54 [employer] OPTIONS [id number] SP [id number] [facility] U [id number] Self [id number] MEDICARE A [id number] Self [id number] V54 [employer] [place] [id number] 18 [id number] MEDICARE PART A [facility] [place] [id number] 18 [id number] Medicare Part B of [facility] Other 0 Se lf 0 Medicare Part B of [facility] Other 0 Se lf 0 Medicare Part B of [facility] Other 0 Se lf 0 Medicare Part B of [facility] Other 0 Se lf 0 Medicare Part B of [facility] Other 0 Se lf 0 Medicare Part B of [facility] Other 0 Se lf 0 [employer] OPTIONS -O/P [id number] 18 [id number] MEDICARE PART A -O/P [id number] 18 [id number] Medicare Part B of [facility] 0 Se lf 0 AARP U [id number] Self [id number] Medicare Part B of [facility] 0 Se lf 0 Medicare Part B of [facility] 0 Se lf 0 Medicare Part B of [facility] 0 Se lf 0 Medicare Part B of [facility] 0 Se lf 0 MEDICARE -SWING BED [id number] 18 [id number] [employer] HE[employer] CARE OPTIONS -O [id number] 18 [id number] AARP U [id number] Self [id number] Medicare Part B of [facility] 0 Se lf 0 Medicare Part B of [facility] 0 Se lf 0 MEDICARE [id number] SP [id number] A Medicare Part B of [facility] 0 Se lf 0 AARP U [id number] Self [id number] AARP U [id number] Self [id number] Medicare Part B of [facility] 0 Se lf 0 MEDICARE C [id number] S [id number] [id number] AARP O [id number] S [id number] Medicare Part B of [facility] 0 Se lf 0 Medicare Part B of [facility] 0 Se lf 0 MEDICARE C [id number] S [id number] A Medicare Part B of [facility] 0 Se lf 0 Medicare Part B of [facility] 0 Se lf 0 Medicare Part B of [facility] 0 Se lf 0 Medicare Part B of [facility] 0 Se lf 0 Medicare Part B of [facility] 0 Se lf 0 AARP HE[employer] CARE OPTIONS [id number] SP [id number] MEDICARE [id number] SP [id number] A [facility] Medigap Part B Self Medicare [place] Medigap Part B Self BS [place] [employer] Dependent AARP HEALTH CARE OPTIONS [id number] SP [id number] MEDICARE A [id number] Self [id number] A MEDICARE OUTPATIENT M [id number] S [id number] AARP O [id number] S [id number] Problems, Conditions, and Diagnoses Code Display Name Description Problem Type Effective Dates Data Source(s) 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 Branch Block Right Pr oblem 07/18/2020 12:45:00 PM EDT [place] ([facility]) 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 Branch Block Right Pr oblem 07/18/2020 12:45:00 PM EDT [place] ([facility]) 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 Branch Block Right Pr oblem 07/18/2020 12:45:00 PM EDT [place] ([facility]) 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 Branch Block Right Pr oblem 07/18/2020 12:45:00 PM EDT [place] ([facility]) [id number] Difficulty passing urine Difficulty passing urine Prob sergio 04/17/2020 12:00:00 AM EDT [facility]) 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 Problem 02/14/2016 12:00:00 AM EDT - 08/21/2020 12:00:00 AM [facility]) 695.3 Rosacea Rosacea Problem 08/16/2015 12:0 0:00 AM EDT - 08/21/2020 12:00:00 AM [facility]) 472.0 Rhinitis Rhinitis Problem 08/16/2015 12:0 0:00 AM EDT - 08/21/2020 12:00:00 AM [facility]) 274.9 Gout Gout Problem 08/16/2015 12:00:00 AM ED T - 08/21/2020 12:00:00 AM [facility]) Z86.39 Personal history of other endocrine, nut ritional and metabolic disease Personal history of other endocrine, nutritional and metabolic disease Diagnosis 09/27/2020 12:47:26 PM [facility] R53.83 Other fatigue Other fatigue Diagnosis 07/19/2020 10:51:20 AM [facility] R99 Ill-defined and unknown cause of mortali ty Ill-defined and unknown cause of mortality Diagnosis 07/04/2020 08:14:[address] [facility] N401 Benign prostatic hyperplasia with lower urinary tract symptoms Benign prostatic hyperplasia with lower urinary tract symptoms Diagnosis 06/05/2020 09:10:00 AM EDT [facility] E16.2 Hypoglycemia, unspecified Hypoglycemia, unspecified Di agnosis 05/31/2020 12:05:56 PM [facility] [id number] Other specified disorders of bladder Other speci fied disorders of bladder Diagnosis 05/11/2020 08:30:[address] [facility] [id number] Other difficulties with micturition Other diffic ulties with micturition Diagnosis 05/11/2020 08:30:[address] [facility] Z1159 Encounter for screening for other viral diseases Encounter for screening for other viral diseases Diagnosis 05/07/2020 10:30:[address] 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 E559 Vitamin D deficiency, unspecified Vitamin D defi ciency, unspecified Diagnosis 10/13/2019 08:00:00 PM [facility] N400 Benign prostatic hyperplasia without low er urinary tract symptoms Benign prostatic hyperplasia without lower urinary tract symptoms Diagnosis 10/13/2019 08:00:00 PM [facility] R569 Unspecified convulsions Unspecified convulsions Diagno sis 10/13/2019 08:00:00 PM [facility] [id number] Personal history of nicotine dependence Personal history of nicotine dependence Diagnosis 10/13/2019 08:00:00 PM [facility] E8342 Hypomagnesemia Hypomagnesemia Diagnosis 10/13/2019 08:00: 00 PM [facility] 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 Diagnosis 10/13/2019 08:00:00 PM [facility] E871 Hypo-osmolality and hyponatremia Hypo-osmolality and hyponatremia Diagnosis 10/13/2019 08:00:00 PM [facility] M6281 Muscle weakness (generalized) Muscle weakness (general ized) Diagnosis 10/13/2019 08:00:00 PM [facility] I63.9 Cerebral infarction, unspecified Cerebral infarc tion, unspecified Diagnosis 10/11/2019 09:20:04 AM [facility] r/o stroke r/o stroke Diagnosis 10/08/2019 12:29:14 AM [facility] E87.1 Hypo-osmolality and hyponatremia Hypo-osmolality and hyponatremia Diagnosis 09/22/2019 09:56:02 AM [facility] Surgeries/Procedures Procedure Description Date Indications Data Source(s) CT THORAX W/CONTRAST MATERIAL CT THORAX WITH CONTRAST [address] [place] 10/31/2020 2:21 PM EST Primary adenocarcinoma of right lung 10/31/2020 02:21:57 PM EST Primary adenocarcinoma of right lung [facility] Primary adenocarcinoma of right lung BLOOD COUNT COMPLETE AUTO&AUTO DIFRNTL WBC COUNT CBC AND DIFFER ENTIAL STAT 10/23/2020 12:45 PM EST Primary adenocarcinoma of right lung 10/23/2020 12:45:00 PM EST Primary adenocarcinoma of right lung [facility] Primary adenocarcinoma of right lung THYROID STIMULATING HORMONE TSH TSH Routine 10/23/19 12:45 PM EST Primary adenocarcinoma of right lung 10/23/2020 12:45:00 PM EST Primary adenocarcinoma of right lung [facility] Primary adenocarcinoma of right lung COMPREHENSIVE METABOLIC PANEL COMPREHENSIVE METABOLIC PANEL STA T 10/23/2020 12:45 PM EST Primary adenocarcinoma of right lung 10/23/2020 12:45:00 PM EST Primary adenocarcinoma of right lung [facility] Primary adenocarcinoma of right lung IRON TOTAL FE BINDING CAPACITY Routine 09/27/2020 1:00 PM EST 09/27/2020 01:00:00 PM [facility] BLOOD COUNT COMPLETE AUTO&AUTO DIFRNTL WBC COUNT CBC AND DIFFER ENTIAL STAT 09/27/2020 1:00 PM EST Primary adenocarcinoma of right lung 09/27/2020 01:00:00 PM EST Primary adenocarcinoma of right lung [facility] Primary adenocarcinoma of right lung THYROID STIMULATING HORMONE TSH TSH Routine 09/27/20 20 1:00 PM EST Primary adenocarcinoma of right lung 09/27/2020 01:00:00 PM EST Primary adenocarcinoma of right lung [facility] Primary adenocarcinoma of right lung FERRITIN FERRITIN LEVEL Routine 09/27/2020 1:00 PM EST 09/27/2020 01:00:00 PM [facility] COMPREHENSIVE METABOLIC PANEL COMPREHENSIVE METABOLIC PANEL STA T 09/27/2020 1:00 PM EST Primary adenocarcinoma of right lung 09/27/2020 01:00:00 PM EST Primary adenocarcinoma of right lung [facility] Primary adenocarcinoma of right lung BLOOD COUNT COMPLETE AUTO&AUTO DIFRNTL WBC COUNT CBC AND DIFFER ENTIAL STAT 09/03/2020 11:03 AM EST Primary adenocarcinoma of right lung 09/03/2020 11:03:00 AM EST Primary adenocarcinoma of right lung [facility] Primary adenocarcinoma of right lung THYROID STIMULATING HORMONE TSH TSH Routine 09/03/20 20 11:03 AM EST Primary adenocarcinoma of right lung 09/03/2020 11:03:00 AM EST Primary adenocarcinoma of right lung [facility] Primary adenocarcinoma of right lung COMPREHENSIVE METABOLIC PANEL COMPREHENSIVE METABOLIC PANEL STA T 09/03/2020 11:03 AM EST Primary adenocarcinoma of right lung 09/03/2020 11:03:00 AM EST Primary adenocarcinoma of right lung [facility] Primary adenocarcinoma of right lung Venipuncture (routine) Venipuncture (routine) 08/21/2020 12:00:00 A M [facility] ([facility]) CMP-Complete Metabolic Profile CMP-Complete Metabolic Profil e 08/21/2020 12:00:00 AM [facility] CBC CBC 08/21/2020 12:00:00 AM EST [facility] ([facility]) BLOOD COUNT COMPLETE AUTO&AUTO DIFRNTL WBC COUNT CBC AND DIFFER ENTIAL STAT 08/13/2020 12:38 PM EDT Primary adenocarcinoma of right lung 08/13/2020 12:38:00 PM EDT Primary adenocarcinoma of right lung [facility] Primary adenocarcinoma of right lung THYROID STIMULATING HORMONE TSH TSH Routine 08/13/20 20 12:38 PM EDT Primary adenocarcinoma of right lung 08/13/2020 12:38:00 PM EDT Primary adenocarcinoma of right lung [facility] Primary adenocarcinoma of right lung COMPREHENSIVE METABOLIC PANEL COMPREHENSIVE METABOLIC PANEL STA T 08/13/2020 12:38 PM EDT Primary adenocarcinoma of right lung 08/13/2020 12:38:00 PM EDT Primary adenocarcinoma of right lung [facility] Primary adenocarcinoma of right lung Myocardial Perfusion Imaging Tomographic (Spect) Multiple St udies 08/02/2020 12:00:00 AM EDT [facility] ([facility]) Cardiovascular Stress Test W/Interpretation & Report 08/02/2020 12:00:00 AM EDT [facility] ([facility]) Echocardiography, Tranthoracic Complete Image Documentation 07/26/2020 12:00:00 AM EDT [facility] ([facility]) BLOOD COUNT COMPLETE AUTO&AUTO DIFRNTL WBC COUNT CBC AND DIFFER ENTIAL STAT 07/19/2020 10:11 AM EDT Primary adenocarcinoma of right lung 07/19/2020 10:11:00 AM EDT Primary adenocarcinoma of right lung [facility] Primary adenocarcinoma of right lung THYROID STIMULATING HORMONE TSH TSH Routine 07/19/20 20 10:11 AM EDT Primary adenocarcinoma of right lung 07/19/2020 10:11:00 AM EDT Primary adenocarcinoma of right lung [facility] Primary adenocarcinoma of right lung COMPREHENSIVE METABOLIC PANEL COMPREHENSIVE METABOLIC PANEL STA T 07/19/2020 10:11 AM EDT Primary adenocarcinoma of right lung 07/19/2020 10:11:00 AM EDT Primary adenocarcinoma of right lung [facility] Primary adenocarcinoma of right lung EKG- Electrocardiogram/12 lead EKG- Electrocardiogram/12 lois d 07/12/2020 12:00:00 AM EDT [facility]) EKG- Electrocardiogram/12 lead EKG- Electrocardiogram/12 lois d 07/12/2020 12:00:00 AM EDT [facility]) BLOOD COUNT COMPLETE AUTO&AUTO DIFRNTL WBC COUNT CBC AND DIFFER ENTIAL STAT 06/21/2020 12:30 PM EDT Primary adenocarcinoma of right lung 06/21/2020 12:30:00 PM EDT Primary adenocarcinoma of right lung [facility] Primary adenocarcinoma of right lung THYROID STIMULATING HORMONE TSH TSH Routine 06/21/20 20 12:30 PM EDT Primary adenocarcinoma of right lung 06/21/2020 12:30:00 PM EDT Primary adenocarcinoma of right lung [facility] Primary adenocarcinoma of right lung COMPREHENSIVE METABOLIC PANEL COMPREHENSIVE METABOLIC PANEL STA T 06/21/2020 12:30 PM EDT Primary adenocarcinoma of right lung 06/21/2020 12:30:00 PM EDT Primary adenocarcinoma of right lung [facility] Primary adenocarcinoma of right lung EKG- Electrocardiogram/12 lead (Distinct Seperate serv ice-same day) EKG- Electrocardiogram/12 lead (Distinct Seperate service-same day) 06/19/2020 12:00:00 AM EDT [facility]) EKG- Electrocardiogram/12 lead EKG- Electrocardiogram/12 lois d 06/19/2020 12:00:00 AM EDT [facility] ([facility]) Spirometry 06/11/2020 12:00:00 AM EDT [facility] Aerosol Or Vapor Inhalations 06/11/2020 12:00:00 AM ED T [facility] ) GLUCOSE QUANTITATIVE BLOOD XCPT REAGENT STRIP POCT GLUCOSE, DOC KED Routine 05/31/2020 1:39 PM EDT 05/31/2020 01:39:00 PM EDT [facility] GLUCOSE QUANTITATIVE BLOOD XCPT REAGENT STRIP POCT GLUCOSE, DOC KED Routine 05/31/2020 1:18 PM EDT 05/31/2020 01:18:00 PM EDT [facility] BLOOD COUNT COMPLETE AUTO&AUTO DIFRNTL WBC COUNT CBC AND DIFFER ENTIAL STAT 05/31/2020 12:20 PM EDT Primary adenocarcinoma of right lung 05/31/2020 12:20:00 PM EDT Primary adenocarcinoma of right lung [facility] Primary adenocarcinoma of right lung THYROID STIMULATING HORMONE TSH TSH Routine 05/31/20 20 12:20 PM EDT Primary adenocarcinoma of right lung 05/31/2020 12:20:00 PM EDT Primary adenocarcinoma of right lung [facility] Primary adenocarcinoma of right lung COMPREHENSIVE METABOLIC PANEL COMPREHENSIVE METABOLIC PANEL STA T 05/31/2020 12:20 PM EDT Primary adenocarcinoma of right lung 05/31/2020 12:20:00 PM EDT Primary adenocarcinoma of right lung [facility] Primary adenocarcinoma of right lung BLOOD COUNT COMPLETE AUTO&AUTO DIFRNTL WBC COUNT CBC AND DIFFER ENTIAL STAT 05/10/2020 12:10 PM EDT Primary adenocarcinoma of right lung 05/10/2020 04:10:00 PM EDT Primary adenocarcinoma of right lung [facility] Primary adenocarcinoma of right lung THYROID STIMULATING HORMONE TSH TSH Routine 05/10/20 12:10 PM EDT Primary adenocarcinoma of right lung 05/10/2020 04:10:00 PM EDT Primary adenocarcinoma of right lung [facility] Primary adenocarcinoma of right lung COMPREHENSIVE METABOLIC PANEL COMPREHENSIVE METABOLIC PANEL STA T 05/10/2020 12:10 PM EDT Primary adenocarcinoma of right lung 05/10/2020 04:10:00 PM EDT Primary adenocarcinoma of right lung [facility] Primary adenocarcinoma of right lung IRON BINDING CAPACITY TOTAL FE BINDING CAPACITY STAT 04/19 12:35 PM EDT Iron deficiency anemia, unspecified iron deficiency anemia type 04/19/2020 04:35:00 PM EDT Iron deficiency anemia, unspecified iron deficiency an emia type [facility] Iron deficiency anemia, unspecified iron deficiency anemia type BLOOD COUNT COMPLETE AUTO&AUTO DIFRNTL WBC COUNT CBC AND DIFFER ENTIAL STAT 04/19/2020 12:35 PM EDT Primary adenocarcinoma of right lung 04/19/2020 04:35:00 PM EDT Primary adenocarcinoma of right lung [facility] Primary adenocarcinoma of right lung TRIIODOTHYRONINE T3 TOTAL TT3 T3 Routine 04/19/2020 12:35 PM EDT Fatigue, unspecified type 04/19/2020 04:35:00 PM EDT Fatigue , unspecified type [facility] Fatigue, unspecified type THYROID STIMULATING HORMONE TSH TSH Routine 04/19/20 20 12:35 PM EDT Primary adenocarcinoma of right lung 04/19/2020 04:35:00 PM EDT Primary adenocarcinoma of right lung [facility] Primary adenocarcinoma of right lung THYROXINE FREE T4, FREE Routine 04/19/2020 12:35 PM EDT Fatigue, unspecified type 04/19/2020 04:35:00 PM EDT Fatigue , unspecified type [facility] Fatigue, unspecified type FERRITIN FERRITIN LEVEL STAT 04/19/2020 12:35 PM EDT Iron deficiency anemia, unspecified iron deficiency anemia type 04/19/2020 04:35:00 PM EDT Iron deficiency anemia, unspecified iron deficiency an emia type [facility] Iron deficiency anemia, unspecified iron deficiency anemia type COMPREHENSIVE METABOLIC PANEL COMPREHENSIVE METABOLIC PANEL STA T 04/19/2020 12:35 PM EDT Primary adenocarcinoma of right lung 04/19/2020 04:35:00 PM EDT Primary adenocarcinoma of right lung [facility] Primary adenocarcinoma of right lung Measurement Post Voiding Residual Urine By Ultrasound,Non-Im aging 04/17/2020 12:00:00 AM EDT [facility] ([facility]) Bronchospasm Evaluation 04/16/2020 12:00:00 AM EDT [facility] Maximum Breathing Capacity, Maximal Voluntary Ventilation 04/16/2020 12:00:00 AM EDT [facility] ([facility] ) Plethysmography Determination Lung Volumes & Per Airway Resi st 04/16/2020 12:00:00 AM EDT [facility] ([facility] ) DIFFUSING CAPACITY 04/16/2020 12:00:00 AM EDT [facility] ([facility] IRON TOTAL FE BINDING CAPACITY Routine 03/29/2020 10:15 AM EDT 03/29/2020 02:15:00 PM EDT [facility] BLOOD COUNT COMPLETE AUTO&AUTO DIFRNTL WBC COUNT CBC AND DIFFER ENTIAL STAT 03/29/2020 10:15 AM EDT Primary adenocarcinoma of right lung 03/29/2020 02:15:00 PM EDT Primary adenocarcinoma of right lung [facility] Primary adenocarcinoma of right lung THYROID STIMULATING HORMONE TSH TSH Routine 03/29/20 10:15 AM EDT Primary adenocarcinoma of right lung 03/29/2020 02:15:00 PM EDT Primary adenocarcinoma of right lung [facility] Primary adenocarcinoma of right lung FERRITIN FERRITIN LEVEL Routine 03/29/2020 10:15 AM EDT 03/29/2020 02:15:00 PM EDT [facility] COMPREHENSIVE METABOLIC PANEL COMPREHENSIVE METABOLIC PANEL STA T 03/29/2020 10:15 AM EDT Primary adenocarcinoma of right lung 03/29/2020 02:15:00 PM EDT Primary adenocarcinoma of right lung [facility] Primary adenocarcinoma of right lung BLOOD COUNT COMPLETE AUTO&AUTO DIFRNTL WBC COUNT CBC AND DIFFER ENTIAL STAT 03/08/2020 1:20 PM EDT Primary adenocarcinoma of right lung 03/08/2020 05:20:00 PM EDT Primary adenocarcinoma of right lung [facility] Primary adenocarcinoma of right lung THYROID STIMULATING HORMONE TSH TSH Routine 03/08/20 1:20 PM EDT Primary adenocarcinoma of right lung 03/08/2020 05:20:00 PM EDT Primary adenocarcinoma of right lung [facility] Primary adenocarcinoma of right lung COMPREHENSIVE METABOLIC PANEL COMPREHENSIVE METABOLIC PANEL STA T 03/08/2020 1:20 PM EDT Primary adenocarcinoma of right lung 03/08/2020 05:20:00 PM EDT Primary adenocarcinoma of right lung [facility] Primary adenocarcinoma of right lung Spirometry 02/23/2020 12:00:00 AM EDT [facility] Aerosol Or Vapor Inhalations 02/23/2020 12:00:00 AM ED T [facility] ([facility] BLOOD COUNT COMPLETE AUTO&AUTO DIFRNTL WBC COUNT CBC AND DIFFER ENTIAL STAT 02/14/2020 12:38 PM EDT Primary adenocarcinoma of right lung 02/14/2020 04:38:00 PM EDT Primary adenocarcinoma of right lung [facility] Primary adenocarcinoma of right lung THYROID STIMULATING HORMONE TSH TSH Routine 02/14/20 12:38 PM EDT Primary adenocarcinoma of right lung 02/14/2020 04:38:00 PM EDT Primary adenocarcinoma of right lung [facility] Primary adenocarcinoma of right lung COMPREHENSIVE METABOLIC PANEL COMPREHENSIVE METABOLIC PANEL STA T 02/14/2020 12:38 PM EDT Primary adenocarcinoma of right lung 02/14/2020 04:38:00 PM EDT Primary adenocarcinoma of right lung [facility] Primary adenocarcinoma of right lung IRON TOTAL FE BINDING CAPACITY Routine 01/24/2020 1:27 PM EDT 01/24/2020 05:27:00 PM EDT [facility] BLOOD COUNT COMPLETE AUTO&AUTO DIFRNTL WBC COUNT CBC AND DIFFER ENTIAL STAT 01/24/2020 1:27 PM EDT Primary adenocarcinoma of right lung 01/24/2020 05:27:00 PM EDT Primary adenocarcinoma of right lung [facility] Primary adenocarcinoma of right lung THYROID STIMULATING HORMONE TSH TSH Routine 01/24/20 1:27 PM EDT Primary adenocarcinoma of right lung 01/24/2020 05:27:00 PM EDT Primary adenocarcinoma of right lung [facility] Primary adenocarcinoma of right lung FERRITIN FERRITIN LEVEL Routine 01/24/2020 1:27 PM EDT 01/24/2020 05:27:00 PM EDT [facility] COMPREHENSIVE METABOLIC PANEL COMPREHENSIVE METABOLIC PANEL STA T 01/24/2020 1:27 PM EDT Primary adenocarcinoma of right lung 01/24/2020 05:27:00 PM EDT Primary adenocarcinoma of right lung [facility] Primary adenocarcinoma of right lung BLOOD COUNT COMPLETE AUTO&AUTO DIFRNTL WBC COUNT CBC AND DIFFER ENTIAL STAT 01/03/2020 12:05 PM EDT Primary adenocarcinoma of right lung 01/03/2020 04:05:00 PM EDT Primary adenocarcinoma of right lung [facility] Primary adenocarcinoma of right lung TRIIODOTHYRONINE T3 TOTAL TT3 T3 Routine 01/03/2020 12:05 PM EDT 01/03/2020 04:05:00 PM EDT [facility] THYROID STIMULATING HORMONE TSH TSH Routine 01/03/20 12:05 PM EDT Primary adenocarcinoma of right lung 01/03/2020 04:05:00 PM EDT Primary adenocarcinoma of right lung [facility] Primary adenocarcinoma of right lung THYROXINE FREE T4, FREE Routine 01/03/2020 12:05 PM EDT 01/03/2020 04:05:00 PM EDT [facility] COMPREHENSIVE METABOLIC PANEL COMPREHENSIVE METABOLIC PANEL STA T 01/03/2020 12:05 PM EDT Primary adenocarcinoma of right lung 01/03/2020 04:05:00 PM EDT Primary adenocarcinoma of right lung [facility] Primary adenocarcinoma of right lung BLOOD COUNT COMPLETE AUTO&AUTO DIFRNTL WBC COUNT CBC AND DIFFER ENTIAL STAT 12/13/2019 1:00 PM EST Primary adenocarcinoma of right lung 12/13/2019 06:00:00 PM EST Primary adenocarcinoma of right lung [facility] Primary adenocarcinoma of right lung THYROID STIMULATING HORMONE TSH TSH Routine 12/13/19 20 1:00 PM EST Primary adenocarcinoma of right lung 12/13/2019 06:00:00 PM EST Primary adenocarcinoma of right lung [facility] Primary adenocarcinoma of right lung COMPREHENSIVE METABOLIC PANEL COMPREHENSIVE METABOLIC PANEL STA T 12/13/2019 1:00 PM EST Primary adenocarcinoma of right lung 12/13/2019 06:00:00 PM EST Primary adenocarcinoma of right lung [facility] Primary adenocarcinoma of right lung Venipuncture (routine) Venipuncture (routine) 11/29/2019 12:00:00 A M EST [facility] ([facility]) CMP-Complete Metabolic Profile CMP-Complete Metabolic Profil e 11/29/2019 12:00:00 AM EST [facility] BLOOD COUNT COMPLETE AUTO&AUTO DIFRNTL WBC COUNT CBC AND DIFFER ENTIAL STAT 11/17/2019 12:25 PM EST Primary adenocarcinoma of right lung 11/17/2019 05:25:00 PM EST Primary adenocarcinoma of right lung [facility] Primary adenocarcinoma of right lung THYROID STIMULATING HORMONE TSH TSH Routine 11/17/19 20 12:25 PM EST Primary adenocarcinoma of right lung 11/17/2019 05:25:00 PM EST Primary adenocarcinoma of right lung [facility] Primary adenocarcinoma of right lung COMPREHENSIVE METABOLIC PANEL COMPREHENSIVE METABOLIC PANEL STA T 11/17/2019 12:25 PM EST Primary adenocarcinoma of right lung 11/17/2019 05:25:00 PM EST Primary adenocarcinoma of right lung [facility] Primary adenocarcinoma of right lung BLOOD COUNT COMPLETE AUTO&AUTO DIFRNTL WBC COUNT CBC AND DIFFER ENTIAL STAT 10/27/2019 11:43 AM EST Primary adenocarcinoma of right lung 10/27/2019 04:43:00 PM EST Primary adenocarcinoma of right lung [facility] Primary adenocarcinoma of right lung THYROID STIMULATING HORMONE TSH TSH STAT 10/27/19 20 11:43 AM EST Primary adenocarcinoma of right lung Other fatigue 10/27/2019 04:43:00 PM EST Other fatigue Primary adenocarcinoma of right lung [facility] Other fatigue Primary adenocarcinoma of right lung COMPREHENSIVE METABOLIC PANEL COMPREHENSIVE METABOLIC PANEL STA T 10/27/2019 11:43 AM EST Primary adenocarcinoma of right lung 10/27/2019 04:43:00 PM EST Primary adenocarcinoma of right lung [facility] Primary adenocarcinoma of right lung no charge procedure no charge procedure 10/25/2019 12:00:00 AM EST [facility] ([facility]) BLOOD COUNT COMPLETE AUTO&AUTO DIFRNTL WBC COUNT CBC AND DIFFER ENTIAL STAT 10/20/2019 10:55 AM EST Primary adenocarcinoma of right lung 10/20/2019 03:55:00 PM EST Primary adenocarcinoma of right lung [facility] Primary adenocarcinoma of right lung THYROID STIMULATING HORMONE TSH TSH Routine 10/20/19 20 10:55 AM EST Primary adenocarcinoma of right lung 10/20/2019 03:55:00 PM EST Primary adenocarcinoma of right lung [facility] Primary adenocarcinoma of right lung COMPREHENSIVE METABOLIC PANEL COMPREHENSIVE METABOLIC PANEL STA T 10/20/2019 10:55 AM EST Primary adenocarcinoma of right lung 10/20/2019 03:55:00 PM EST Primary adenocarcinoma of right lung [facility] Primary adenocarcinoma of right lung BLOOD COUNT COMPLETE AUTO&AUTO DIFRNTL WBC COUNT CBC AND DIFFER ENTIAL Routine 10/13/2019 1:31 PM EST 10/13/2019 06:31:00 PM [facility] BASIC METABOLIC PANEL CALCIUM TOTAL BASIC METABOLIC PANEL Routi ne 10/13/2019 1:31 PM EST 10/13/2019 06:31:00 PM [facility] BLOOD COUNT COMPLETE AUTO&AUTO DIFRNTL WBC COUNT CBC AND DIFFER ENTIAL Routine 10/12/2019 1:02 AM EST 10/12/2019 06:02:00 AM [facility] BASIC METABOLIC PANEL CALCIUM TOTAL BASIC METABOLIC PANEL Routi ne 10/12/2019 1:02 AM EST 10/12/2019 06:02:00 AM [facility] GLUCOSE QUANTITATIVE BLOOD XCPT REAGENT STRIP POCT GLUCOSE, DOC KED Routine 10/11/2019 4:51 PM EST 10/11/2019 09:51:00 PM [facility] BLOOD COUNT COMPLETE AUTO&AUTO DIFRNTL WBC COUNT CBC AND DIFFER ENTIAL Routine 10/11/2019 4:14 AM EST 10/11/2019 09:14:00 AM [facility] BASIC METABOLIC PANEL CALCIUM TOTAL BASIC METABOLIC PANEL Routi ne 10/11/2019 4:14 AM EST 10/11/2019 09:14:00 AM [facility] COMMUNITY-ACQUIRED DIARRHEA PANEL COMMUNITY-ACQUIRED DIARRHEA P TY Routine 10/10/2019 4:16 PM EST 10/10/2019 09:16:00 PM [facility] OSMOLALITY URINE OSMOLALITY, URINE Routine 10/10/2019 4:16 PM EST 10/10/2019 09:16:00 PM [facility] OVA&PARASITES DIRECT SMEARS CONCENTRATION&ID OVA AND PARASITE S CREEN Routine 10/10/2019 4:16 PM EST 10/10/2019 09:16:00 PM [facility] SODIUM URINE SODIUM, URINE, RANDOM Routine 10/10/2019 6:17 AM EST 10/10/2019 11:17:00 AM [facility] THYROID STIMULATING HORMONE TSH TSH Routine 10/10/2019 5:52 AM EST 10/10/2019 10:52:00 AM [facility] CORTISOL TOTAL CORTISOL Routine 10/10/2019 5:52 AM EST 10/10/2019 10:52:00 AM [facility] BLOOD COUNT COMPLETE AUTO&AUTO DIFRNTL WBC COUNT CBC AND DIFFER ENTIAL Routine 10/10/2019 3:28 AM EST 10/10/2019 08:28:00 AM [facility] BASIC METABOLIC PANEL CALCIUM TOTAL BASIC METABOLIC PANEL Routi ne 10/10/2019 3:28 AM EST 10/10/2019 08:28:00 AM [facility] BLOOD OCCULT FECAL HGB DETER IA QUAL FECES 1-3 FECAL OCCULT BLOOD, LOWER GI (HEMOCCULT-ICT), FIT TESTING, Routine 10/09/2019 6:29 AM EST 10/09/2019 11:29:00 AM [facility] BLOOD COUNT COMPLETE AUTO&AUTO DIFRNTL WBC COUNT CBC AND DIFFER ENTIAL Routine 10/09/2019 4:15 AM EST 10/09/2019 09:15:00 AM [facility] THYROID STIMULATING HORMONE TSH TSH Routine 10/09/2019 4:15 AM EST 10/09/2019 09:15:00 AM [facility] HEMOGLOBIN GLYCOSYLATED A1C HEMOGLOBIN A1C Routine 10/09/2019 4:15 AM EST 10/09/2019 09:15:00 AM [facility] LIPID PANEL LIPID PANEL Routine 10/09/2019 4:15 AM EST 10/09/2019 09:15:00 AM [facility] BASIC METABOLIC PANEL CALCIUM TOTAL BASIC METABOLIC PANEL Routi ne 10/09/2019 4:15 AM EST 10/09/2019 09:15:00 [address] [facility] CT HEAD/BRAIN W/O CONTRAST MATERIAL CT HEAD WITHOUT CONTRAST 70 450 Routine 10/09/2019 1:50 AM EST 10/09/2019 06:50:00 AM [facility] EEG ROUTINE STUDY EEG ROUTINE STUDY Routine 10/08/2019 4:10 PM EST 10/08/2019 09:10:00 PM [facility] BLOOD COUNT COMPLETE AUTOMATED CBC Routine 10/08/2019 2:53 P M EST 10/08/2019 07:53:00 PM [facility] RESPIRATORY PANEL RESPIRATORY PANEL Routine 10/08/2019 9:21 AM EST 10/08/2019 02:21:00 PM [facility] CULTURE BACTERIAL BLOOD AEROBIC W/ID ISOLATES BLOOD CULTURE R outine 10/08/2019 9:21 AM EST 10/08/2019 02:21:00 PM [facility] CULTURE BACTERIAL BLOOD AEROBIC W/ID ISOLATES BLOOD CULTURE R outine 10/08/2019 9:21 AM EST 10/08/2019 02:21:00 PM [facility] MRI BRAIN BRAIN STEM W/O CONTRAST MATERIAL MR BRAIN WITHOUT CONTRAST [id number] STAT 10/08/2019 9:08 AM EST 10/08/2019 02:08:00 PM [facility] ECHO TTHRC R-T 2D W/WOM-MODE COMPL SPEC&COLR DOP ECHOCARDIO GRAM 2D COMPLETE Routine 10/08/2019 7:53 AM EST 10/08/2019 12:53:19 PM [facility] BLOOD COUNT COMPLETE AUTO&AUTO DIFRNTL WBC COUNT CBC AND DIFFER ENTIAL Routine 10/08/2019 6:29 AM EST 10/08/2019 11:29:00 AM [facility] THYROID STIMULATING HORMONE TSH TSH Routine 10/08/2019 6:29 AM EST 10/08/2019 11:29:00 AM [facility] THYROXINE FREE T4, FREE Routine 10/08/2019 6:29 AM EST 10/08/2019 11:29:00 AM [facility] HEMOGLOBIN GLYCOSYLATED A1C HEMOGLOBIN A1C Routine 10/08/2019 6:29 AM EST 10/08/2019 11:29:00 AM [facility] LIPID PANEL LIPID PANEL Routine 10/08/2019 6:29 AM EST 10/08/2019 11:29:00 AM [facility] COMPREHENSIVE METABOLIC PANEL COMPREHENSIVE METABOLIC PANEL Rou mark 10/08/2019 6:29 AM EST 10/08/2019 11:29:00 AM [facility] URNLS DIP STICK/TABLET REAGENT AUTO MICROSCOPY URINALYSIS W ITH MICROSCOPIC STAT 10/08/2019 1:24 AM EST 10/08/2019 06:24:00 AM [facility] XR CHEST FRONTAL ONLY [id number] XR CHEST FRONTAL ONLY [id number] STAT 10/08/2019 1:19 AM EST 10/08/2019 06:19:51 AM [facility] EKG ED PHYSICIAN INTERPRETATION EKG ED PHYSICIAN INTERPRETATION Routine 10/08/2019 1:15 AM EST 10/08/2019 06:15:19 AM [facility] EKG 12-LEAD - CMAXX REPORT EKG 12-LEAD - CMAXX REPORT 10/08/2019 1:10 AM EST 10/08/2019 06:10:27 AM [facility] EKG 12-LEAD - CMAXX REPORT EKG 12-LEAD - CMAXX REPORT 10/08/2019 1:10 AM EST 10/08/2019 06:10:27 AM [facility] EKG 12-LEAD EKG 12-LEAD STAT 10/08/2019 1:10 AM EST 10/08/2019 06:10:27 AM [facility] EKG 12-LEAD - CMAXX REPORT EKG 12-LEAD - CMAXX REPORT 10/08/2019 1:10 AM EST 10/08/2019 06:10:00 AM [facility] THROMBOPLASTIN TIME PARTIAL PLASMA/WHOLE BLOOD PARTIA L THROMBOPLASTIN TIME (PTT) STAT 10/08/2019 12:55 AM EST 10/08/2019 05:55 :00 AM [facility] ACETAMINOPHEN, RANDOM ACETAMINOPHEN, RANDOM STAT 10/08/2019 12:5 5 AM EST 10/08/2019 05:55:00 AM [facility] ETHYL ALCOHOL LEVEL ETHYL ALCOHOL LEVEL STAT 10/08/2019 12:55 AM EST 10/08/2019 05:55:00 AM [facility] PROTHROMBIN TIME PROTIME INR STAT 10/08/2019 12:55 AM EST 10/08/2019 05:55:00 AM [facility] BLOOD COUNT COMPLETE AUTO&AUTO DIFRNTL WBC COUNT CBC AND DIFFER ENTIAL STAT 10/08/2019 12:55 AM EST 10/08/2019 05:55:00 AM [facility] AMMONIA AMMONIA LEVEL STAT 10/08/2019 12:55 AM EST 10/08/2019 05:55:00 AM [facility] SALICYLATE LEVEL SALICYLATE LEVEL STAT 10/08/2019 12:55 AM EST 10/08/2019 05:55:00 AM [facility] COMPREHENSIVE METABOLIC PANEL COMPREHENSIVE METABOLIC PANEL STA T 10/08/2019 12:55 AM EST 10/08/2019 05:55:00 AM [facility] BLOOD GASES ANY COMBINATION PH PCO2 PO2 CO2 HCO3 POCT ISTAT VBG /LAC Routine 10/08/2019 12:52 AM EST 10/08/2019 05:52:00 AM [facility] BASIC METABOLIC PANEL CALCIUM IONIZED POCT ISTAT CHEM8 Routine 10/08/2019 12:51 AM EST 10/08/2019 05:51:[address] [facility] CT ANGIOGRAPHY NECK W/CONTRAST/NONCONTRAST CT ANGIOGRAPHY NECK [id number] STAT 10/08/2019 12:45 AM EST 10/08/2019 05:45:00 AM [facility] CT ANGIOGRAPHY HEAD W/CONTRAST/NONCONTRAST CT ANGIOGRAPHY HEAD [id number] STAT 10/08/2019 12:45 AM EST 10/08/2019 05:45:00 AM [facility] BLOOD COUNT COMPLETE AUTO&AUTO DIFRNTL WBC COUNT CBC AND DIFFER ENTIAL STAT 09/22/2019 10:05 AM EST Primary adenocarcinoma of right lung 09/22/2019 03:05:00 PM EST Primary adenocarcinoma of right lung [facility] Primary adenocarcinoma of right lung TRIIODOTHYRONINE T3 TOTAL TT3 T3 Routine 09/22/2019 10:05 AM EST 09/22/2019 03:05:00 PM [facility] THYROID STIMULATING HORMONE TSH TSH Routine 09/22/20 19 10:05 AM EST Primary adenocarcinoma of right lung 09/22/2019 03:05:00 PM EST Primary adenocarcinoma of right lung [facility] Primary adenocarcinoma of right lung THYROXINE FREE T4, FREE Routine 09/22/2019 10:05 AM EST 09/22/2019 03:05:00 PM [facility] COMPREHENSIVE METABOLIC PANEL COMPREHENSIVE METABOLIC PANEL STA T 09/22/2019 10:05 AM EST Primary adenocarcinoma of right lung 09/22/2019 03:05:00 PM EST Primary adenocarcinoma of right lung [facility] Primary adenocarcinoma of right lung Results ID Date Data Source [id number] 11/01/2020 03:19:14 PM EST [facility] CT ABDOMEN PELVIS WITH CONTRAST [id number] AL RESULTInterpreted by:Kwan Meyer DOINDICATION: History of lung cancer, reassess diseaseTECHNIQUE: Helical axial CT images of the abdomen and pelvis were obtained with intravenous contrast administration. Oral contrast was administered. Sagittal and coronal reconstructions were created from the original axial data. Automated dose lowering techniques and/or adjustment according to patient size were utilized for this exam. COMPARISON: CT abdomen and pelvis dated 07/10/2020.FINDINGS: LUNGS AND MEDIASTINUM: For findings above the diaphragm, please see CT chest performed same day.LIVER: There is small subcentimeter lesions measuring up to 5 mm present within the inferior right hepatic lobe, stable from prior study and too small to accurately characterize. There is mild intrahepatic biliary duct dilation, similar prior study.GALLBLADDER AND BILIARY TREE: There is a 1.5 cm noncalcified gallstone within the gallbladder neck, similar to prior study. There has been herniation of the gallbladder through a right abdominal wall defect which measures approximately 1.7 cm. No pericholecystic fluid or gallbladder wall thickening. The common bile duct measures 0.7 cm.PANCREAS: Unremarkable, no focal lesions. No pancreatic ductal dilatation.SPLEEN: Unremarkable, no focal lesions.ADRENALS: Unremarkable bilaterally.RIGHT KIDNEY: Unremarkable right kidney. No radiographic evidence for hydronephrosis..LEFT KIDNEY: There is a 3 mm hypodense lesion present within the lower pole, too small to fully characterize and stable. No renal calculus or hydronephrosis.BOWEL: There is redemonstration of gastric pull-through. Postsurgical changes are present within the posterior mediastinum and upper abdomen.The small bowel appears unremarkable. No dilated loops of bowel are seen. Colonic diverticulosis is present. There is moderate amount stool present throughout the colon. Appendix is not seen, no secondary signs of appendicitis.FREE AIR/FLUID: No free intraperitoneal air. No significant free fluid.LYMPH NODES: Peripherally calcified structures present adjacent to the spleen, stable from prior studies. Additional peripherally calcified structure is present within the anterior abdomen, stable. These likely represent fat necrosis. Again noted is hypodense mahad caval lymph node. VESSELS: Calcifications are present within the abdominal aorta and its branches. Tortuous appearing abdominal aorta measuring up to 2.5 cm in the transverse dimension on image 132 of 353, stable. Extensive calcifications present within bilateral iliac arteries. Severe narrowing of the proximal right internal iliac artery is noted. Asymmetric heterogeneous hyperdensity/enhancement of the right external iliac vein. This abuts the right internal iliac artery and right common iliac vein on image 209 in the region of hyperdensity/enhancement. BLADDER: Bladder is well distended and unremarkable.REPRODUCTIVE ORGANS: The prostate gland is enlarged and causes impression on the bladder.BODY WALL: Surgical material is present within the left inguinal region. Post repair. Small right fat containing inguinal hernia. BONES: Advanced multilevel degenerative changes are present within the visualized spine. There is diffuse osteopenia. There is interval development of sclerosis present within the left T12 pedicle and transverse process. Bone island within the sacrum is stable. Heterogeneous bone density is seen. No evidence of aggressive lytic lesions.IMPRESSION:1. Interval development of sclerosis within the T12 pedicle and transverse process, this could be degenera tive however, sclerotic metastasis is not entirely excluded.2. Asymmetric heterogeneous hyperdensity/enhancement of the right external iliac vein. This abuts the right internal iliac artery and right common iliac vein on image 209 in the region of hyperdensity/enhancement. This is nonspecific. Communication of the artery and vein cannot be excluded. Correlation with doppler ultrasound or CTA pelvis is recommended. 3. Interval herniation of the gallbladder into the right anterior lateral abdominal wall.4. Other stable finding as above.This document has been electronically signed by Cynthia Estrada MD on 11/01/2020 3:17 PM Name Value Range Interpretation Code Description Data Neva rce(s) Supporting Document(s) ID Date Data Source [id number] 10/31/2020 03:02:02 PM [facility] CT THORAX WITH CONTRAST [id number] RESUL TInterpreted by:Prabhjot Nguyen, MDCT thorax.INDICATION: Primary adenocarcinoma right lung. Reevaluate.TECHNIQUE: A CT of the thorax was performed. 1 mm axial images were made after the intravenous administration of 100 MLO of Omnipaque 300. Comparison is made with an examination dated July 10, 2020. Automated dose reduction techniques and/or adjustment according to patient size were used.FINDINGS: Airway patency is demonstrated through the segmental level. There is moderate centrilobular emphysema.There is stable scarring at the left lung [...] the superior segment of the left lower lobe.There is stable scarring at the right lung apex. There is a pleural-based partially cavitated 1.1 cm in diameter nodule at the right apex. It previously measured 1.1 cm as well. It is subjectively less dense than it was on the prior examination. There is a subjacent 6 mm in diameter nodule that previously measu red 5 mm. 2 pleural-based opacities are identified. [...] the lateral aspect of the right lower lobe.There are apparent bilateral basilar areas of honeycombing.Right pleural thickening is noted. There is no evidence of pleural effusion.There are degenerative changes in the thoracic spine. Changes in several of the posterior right ribs suggest prior trauma and a probable right posterior thoracotomy.There is a stable T8 compression fracture. There is a stable fracture of the T2 spinous process. There are new sclerotic foci in the body of the sternum.Prominent lymph nodes are again identified in the mediastinum.The patient is status post esophagectomy with gastric pull- through. There is persistent dilatation of the residual proximal esophagus. The intrathoracic portion of the stomach is grossly unremarkable. For discussion of findings below the diaphragm please refer to the CT abdomen and pelvis done on the same date.There are atherosclerotic changes in the thoracic aorta and branch vessels. No filling defects are identified in the central opacified pulmonary artery segments.IMPRESSION: There is an enlarging 4.7 mm in diameter nodule in the left upper lobe. There are 2 adjacent nodules one of which was not seen previously and the other which has increased in size. There is a 1.1 cm in diam eter nodule at the right apex. Its size is unchanged however it appears less dense than on the prior examination. Stable pleural-based opacities are seen in the right upper and right middle lobes. Stable prominent mediastinal lymph nodes are identified.There are new sclerotic foci in the body of the sternum. They are worrisome for blastic metastases.Patient is status post esophagectomy with gastric pull-through. There is persistent dilatation of the residual [place] esophagus.Mild stable apparent bilateral basilar honeycombing.This document has been electronically signed by Prabhjot Nguyen MD on 10/31/2020 2:59 PM Name Value Range Interpretation Code Description Data Neva rce(s) Supporting Document(s) ID Date Data Source [id number] 10/28/2020 12:00:33 PM [facility] Name Value Range Interpretation Code Description Data Neva rce(s) Supporting Document(s) Progress Note [facility] UNKRLu0fWzKCGaFn38/RJGfgEYVut3NfIXnuLDz2HOzlWZRcM5QpWHG3vO2uCCP0EKmNRiHdFcEoCSVa [facility] [file] [id number]Sf4JVuI9YHS9sUOnNu5WGOx8QIcICcMhMB3NIQd= ID Date Data Source [id number] 10/28/2020 12:00:28 PM [facility] Name Value Range Interpretation Code Description Data Neva rce(s) Supporting Document(s) Progress Note [facility] IOELFe4pOjIYXgCj42/LHPiqSNKuu5BxAEyxTJp8PTefBJBgR9UoXKF1lT8xWNF1ATmGYvFsUpNaYUGm lbm [file] MzIzOCAwMDAwMCBuDQowMDAwMDQzNTYzIDAwMDAwIG 2HJmIiJUWyTJO2KqRgSJLaBDQxmm9HTGEzLTW3HTDpRkYaSXFoZYToGYghAUFuNAC9BDM9XBTeRPWhZE 8RVoJhYMTuIPSyJDOcYFFmMLNugq0ZAFOaDVA7FFGkORHtHAQiTXQuETxkFXCqQMC3KYy1JJTkNGKhUT 1IWvOlGGNyEWH8LVBmZLItPURvdd4ZPARnJUS4UdA2 BTNrNXPnTPHdHYauYOLxAJV3UOFuSFAxBDEeUH7NKyIsDDCsHNd4DpjmWYLqJQZqyc3KxWBkxTobip7J PZzNWw5BrBymDWYcDZxsGx0ymAJmFOVwZHYKBc2YwqZyIUQsSMZWLGgcHBQlGZuaCMEqQJehPdMfFVW3 JxZsAHT2NZOsYqaqQ2U8ZJF6ScD7Y8GoVpX5N2QfKw ZzDEXiNeS9MVAuEWLhIgO1OmquDwv+WF0zXPh+Lh8Bf1OkkjE1pvKdECe6OIOdCr3CXDETF7DYIi== ID Date Data Source [id number] 10/23/2020 12:53:26 PM [facility] Name Value Range Interpretation Code Description Data Neva e(s) Supporting Document(s) Leukocytes [#/volume] in Blood by Automated count 7.9 10*3/uL 4-10 [facility] Erythrocytes [#/volume] in Blood by Automated count 4.01 10*6/uL 4.6- 6.1 L [facility] Hemoglobin [Mass/volume] in Blood 12.7 g/dL 13.5-18 L [facility] Hematocrit [Volume Fraction] of Blood by Automated count 37.0 % 4 1-53 L [facility] Erythrocyte mean corpuscular volume [Entitic volume] by Auto mated count 92.4 fL 80-96 [facility] Erythrocyte mean corpuscular hemoglobin [Entitic mass] by Automated count 31.7 pg 27-33 [facility] Erythrocyte mean corpuscular hemoglobin concentration [Mass/volume] by Automated count 34.3 g/dL 32.0-[facility] E[facility]th[facility] distribution width [Ratio] by Automated count 13.4 % 11.5-14.5 [facility] Platelets [#/volume] in Blood by Automated count 219 10*3/uL 150-400 [facility] Differential cell count method - Blood [facility] Neutrophils/100 leukocytes in Blood by Automated count 74 % [facility] Lymphocytes/100 leukocytes in Blood by Automated count 8 % [facility] Monocytes/100 leukocytes in Blood by Automated count 10 % [facility] Eosinophils/100 leukocytes in Blood by Automated count 7 % [facility] Basophils/100 leukocytes in Blood by Automated count 1 % [facility] Neutrophils [#/volume] in Blood by Automated count 5.87 10*3/uL 1.8-7 .0 [facility] Lymphocytes [#/volume] in Blood by Automated count 0.60 10*3/uL 1.2-4 .0 L [facility] Monocytes [#/volume] in Blood by Automated count 0.78 10*3/uL 0-0.8 [facility] Eosinophils [#/volume] in Blood by Automated count 0.56 10*3/uL 0-0.5 H [facility] Basophils [#/volume] in Blood by Automated count 0.07 10*3/uL 0-0.2 [facility] Nucleated erythrocytes/100 leukocytes [Ratio] in Blood by Automated count 0 /100{WBCs} 0-0 [facility] ID Date Data Source [id number] 10/23/2020 01:41:25 PM [facility] Name Value Range Interpretation Code Description Data Neva rce(s) Supporting Document(s) Albumin [Mass/volume] in Serum or Plasma by Bromocresol green (BCG) dye binding method 4.0 g/dL 3.5-5.2 [facility] Bilirubin.total [Mass/volume] in Serum or Plasma 0.4 mg/dL <1.2 [facility] Calcium [Mass/volume] in Serum or Plasma 9.1 mg/dL 8.8-10.2 [facility] Chloride [Moles/volume] in Serum or Plasma 97 mmol/L 98-107 L [facility] Creatinine [Mass/volume] in Serum or Plasma 0.83 mg/dL 0.70-1.20 [facility] Glucose [Mass/volume] in Serum or Plasma 161 mg/dL 70-140 H [facility] Alkaline phosphatase [Enzymatic activity/volume] in Serum or Plasma 82 U/L 40-129 [facility] Potassium [Moles/volume] in Serum or Plasma 4.1 mmol/L 3.4-5.1 [facility] Protein [Mass/volume] in Serum or Plasma 6.6 g/dL 6.4-8.3 [facility] Sodium [Moles/volume] in Serum or Plasma 132 mmol/L 136-145 L [facility] Aspartate aminotransferase [Enzymatic activity/volume] in Serum or Plasma 13 U/L <40 [facility] Urea nitrogen [Mass/volume] in Serum or Plasma 15 mg/dL 8-23 [facility] Osmolality of Serum or Plasma by calculation 278 mosm/kg 275-300 [facility] Creatinine/Urea nitrogen [Mass Ratio] in Serum or Plasma 18 [facility] Bicarbonate [Moles/volume] in Serum 26 mmol/L 22-29 [facility] Alanine aminotransferase [Enzymatic activity/volume] in Seru m or Plasma 10 U/L <41 [facility] Anion gap 3 in Serum or Plasma 9 mmol/L 8-15 [facility] Glomerular filtration rate/1.73 sq M pre dicted among non-blacks [Volume Rate/Area] in Serum or Plasma by Creatinine-based formula (MDRD) >6 0 [facility] Glomerular filtration rate/1.73 sq M pre dicted among blacks [Volume Rate/Area] in Serum or Plasma by Creatinine-based formula (MDRD) >60 [facility] ID Date Data Source [id number] 10/23/2020 05:57:47 PM [facility] Name Value Range Interpretation Code Description Data Neva rce(s) Supporting Document(s) Thyrotropin [Units/volume] in Serum or Plasma 3.280 u[IU]/mL 0.270-4. 200 [facility] ID Date Data Source [id number] 10/09/2020 08:00:00 AM EST [facility] ([facility]) Name Value Range Interpretation Code Description Data Neva rce(s) Supporting Document(s) Appearance of Urine Laboratory test result [facility] ([facility]) Color of Urine Laboratory test result [facility] ([facility]) Leukocytes Laboratory test result [facility] ([facility]) Spec [place] 1.000 [facility] ([facility]) pH of Urine by Test strip 8 [facility] NT ([facility]) Protein [Presence] in Urine by Test strip Laboratory test result [facility] ([facility]) Inhouse Glucose Laboratory test result [facility] ([facility]) Nitrate [Presence] in Urine Laboratory test result [facility] ([facility]) Urobilinogen Laboratory test result [facility] ([facility]) Ketones [Presence] in Urine by Test strip Laboratory test result [facility] ([facility]) Bilirubin.total [Presence] in Urine by Test strip Laboratory test res ult [facility] ([facility]) Blood type and Indirect antibody screen panel - Blood Laboratory test result [facility] ([facility]) ID Date Data Source [id number] 09/28/2020 04:45:54 PM [facility] Name Value Range Interpretation Code Description Data Neva rce(s) Supporting Document(s) Progress Note [facility] TVUWCr6yEnJKCfTj48/LPUgdFADij0IoLOovJJr6RHzmQLWpP2YsXDW6mM2rIRQ4XZnQCbUtXiVgIjEj lbm [file] DISPATCH SUPERVISOR/6ALamvfFGQgaVHKLPAy6iSJGvAiNA+zTndkEP9Ehf3uM9H0nkNu8N0p41uLuEYXlGwq9VAMSiNyxi [file] ICAgICAgICAgICAgICAgICAgICAgICAgICAgICAgIC IqNCNySZRqICQeZFEfRTItPKHxYRPoGRLfBIOuFDRdBUUbSEWtNKHiBJFtWAMgIKFpLB6THZHbGBLsDM AgICAgICAgICAgICAgICAgICAgICAgICAgICAgICAgICAgICAgICAgICAgICAgICAgICAgICAgICAgIC AgICAgICAgICAgICAgICAgICAgICAgICAgICAgICAg SY7YHJWrXFBqZSJoIIOwSBKgHFIzRIIqXATyKEFuDTPgWFLvCYDoNIPzWCHdUBLqQLJhAQNbQJZgBSYa MRBiCKNxGGHoUQTcOLHdIAFrWNDeAOKfODNhNTGjVIJlVSCzUYKuLZKsAE1LQIJnUNMgJTYwKCSgOEXq ICAgICAgICAgICAgICAgICAgICAgICAgICAgICAgIC MyYTDgECSdIRDkJJPsMFApASYiCOBoAPVzPJNeNTVuGXGoRBGuRFVmHBOuVBMxZEGbECCcJE2AMORxEP AgICAgICAgICAgICAgICAgICAgICAgICAgICAgICAgICAgICAgICAgICAgICAgICAgICAgICAgICAgIC AgICAgICAgICAgICAgICAgICAgICAgICAgICAgICAg GUOuIH6OXFBnWVYcNTXaIPViDOSzRQXpEWXvXYRzAEBuXSIaRYTgCPUpNSHiOLXyRAQyWKElKYKcJURk RRYnFXNvCAXfPJErXXWyHJTnAUZlOUUsFPGqKEVtQCSqBJTeVSIlXCBcTPHeXZ4DRGKgZNVoNYVuTGQu ICAgICAgICAgICAgICAgICAgICAgICAgICAgICAgIC UjBIYjCBTfZGUuKIRiMOFmGCWmYFPaCHZnMGYqCQUqIIVmFGMlDNLwCUOaTCXgTBZlTJSwMKAuPE7EVJ AgICAgICAgICAgICAgICAgICAgICAgICAgICAgICAgICAgICAgICAgICAgICAgICAgICAgICAgICAgIC AgICAgICAgICAgICAgICAgICAgICAgICAgICAgICAg WZZaCICvYC1ABXBaXRCcCXZrWRRdGXXsWAJsIBZkIQItLUIoGELhXQFkLKOhGUBbEEWyVILvYDJjUBOm GVViYZQrDEVqROYqSWHiDTSyRTJaRUSfDVYwDCSxHGSrJQUyLWIqERCbCPJqUXIoVM1VHPRzRABnRSIk ICAgICAgICAgICAgICAgICAgICAgICAgICAgICAgIC AgICAgICAgICAgICAgICAgICAgICAgICAgICAgICAgICAgICAgICAgICAgICAgICAgICAgICAgICAgIA 5FCD51aCUtx2G7QWOdUH6nygu/Lc8ZENttsoLpnPRdHI9ZJuZjSF7aan5XDnMwIW1lmd4BECyBZuJkD4 L8qFOrZKWjEAYWDgJyO44pKFuiNq36UYfoPTIkSnMi YPn1Nw5VRcNvC0hwEEJaAgL7XWJzEgT7LUSuJsBlIISkAIExVKSwROBHJLZ0AACvVxLcClPvKONxDFzi PHGAGHWfKLQrQiLmTFenKO7Ss4MrjWZ6IEm+Ul3TTQ2ke7ZrYBwzEwToKF4vzz5WNRsBYqBkC3KsjhY5 BDA8HMIvVj4REDGwPUTlsTSjGLXjEYEUKrRmH7ZprI 21CUXBWh7+BIgztfKdIxaKArG3IAQgu9IhEPn1FV1CKGOgZSn5sEJyQEEpJ3Shq7BsHr74WXRsTbukLG ZpWXuvdXRMLUOcYEJqsDxuMsIcARDjVAOpNDYpBtYqSZFlCotoHZWQYVuYZiAoE0Yss0AeNtV9QUZzOj JyKCzoKRZfUkE6IS81oAnuNQ7YOFJpTCZzTV47LPG2 IRZqYd3XEa6IAsGoQK9oup1PZqLzCZ7kuj7EVHbFGhDcE4U4jBQgV9Jdox25MQ3FqSV8nHFbTE7TjK7w WH5Vo0TtAVWyRcNfACAoCHCoCEBnTXMxImJtPI0QMMYiZrSmtSIsGKFrUHceMWJbBsK6IjMdCN3NPWZp EXH7RR3XHL2HEqolN6ARENfraYtiZxFPODN/QUNUSV YXYXrsHPKrP51RM2TGIDfGAsgtCZdIIwjmNi9mWJc+Uc8GSQ5js5RuEDqoFVEmHP1krm9FYArIRvQbC0 H5tIQdM5Q8XFxjOf0KVXHiQHCoSyDpDHUFOEyeNF9ETJ1mhiJ5AV4AoIOxMQEmMMLbeKTmKGv7F71cuX HyJElbCW8PLTY+Delbert+Kc2VPXEcBEMbNFErFcIbIOTE JaTqG6IeN8IKq5VnM0NaRZ22pHaopsZrQLydRL1XCL4bZCUkDVGFEH3OrAKewR8gtpCdZmSjXGMFGxAp H48pzHGyGWWcWPY7HUXxGc0TCLZvZ5VmvyUcsWidupAuNHKtYCUPQB3FEGfolsVglFVveOmbVQ91vUwj UT5ZBn4GCpViPO8eij5EjBNfUa0KHEC6PS6PFQToTI TpPWNuBWR2TQNeHmNzMQabXHWbGXWxNUG8MMVjLHOdHI4IRfJhENNoZJFfGDNlBGJtIUNbzc9PSZBuHT P1WxsmHqWuRGOnGARvQPuaKVIzJTZpTHR5LGXbMJDrUT8EMdOfNOQpBDYiLPIyENQvEORnku2BNFGnFC M9UkU6FgGaVZBnYYEvMAplXSJbCPDvQJE2NQYvYUGt BK6MVzPnRMKoOBu4DhaiXJLvMANdba7JXWHvMYOoSMg7WcFtEBHfEGWdNMzwSTQnVDVvUbPtDGYdOXDl UR0AVtGuDXYkMLJ5XsRkLMApDYJpgi2UJTSsKMSkSLC0WOLcEVCwEVTvBTeqSQKgYQE3TcDqYPFiBLXi HS6PFsAgNZVhVUx0YmYkVDOmOYXtnd0UFWTdYWOaVK tpMbCrJEZqKIVuDYlmQZByPMDlYSytSDLzHBPnOR5XEsTuNXKoJkYlRdxyBTGkNJFfgl2ZBUDjNLJqSu U1HWLzAKWaIMDlMAmxLVRgDJU1MPnjFEOgENXqTK8NDjTtUTVjJvk9ICFlMXJsVXHvfz9FTAZtJJYrDL npQHLtKIHrYLIcFNhiIJOqSHR2HuIfIJWcDTWfSW4Y QeDiJKUsTsd5IRvcERSoMRJsqn1QXHOgBUKcUSU7WVPbAWKuZLKlDWcnWYXxLPBdPPOxONYyAPGoFS9Z UiBlIVSySfRqNPYgDCFjDTMfiq5PHXWjZOUwILK0AHHxJPMkTRBwGUkeVHSfCVAxPEHgXILgUWZnZU9B IgUeEYRpWZYfTHQrMGKqCHQutf6OOTWiYQQ0HvG7CE WdDVUgOKGaPKfaKGTpTDSrIxF1XOLtRQTdDC6TDsIaEBWgZBH2IEBsNUWhCKIakj2EALPaJOA3WLy4WX ZeSBWsXSFrREmcXHOmZBA4IDluDSUvEEHtPG6COkDuSWDjEWEuBrOkYBBuEASyyg7OJYFjYLQ8NGI8Zu OaXLRoJPMqOFnkCTDfNTT0NFDiNCKdTXDdTB2LPaFx KKQjGRrhVxYaRBVeXMIhjt9BKZAyWQR3NmK4WwFeLMEsNMWrGJo5brRjtFIoGIr3VG2YP8KcbaDdBCEO Ie3Sx314WAV3UQTeKp4VN1enSk1wPWUoNZXGWj4FMEp0DUqqLnV0RsggYWKrRYMdEvQ8ROM1VJJlDBL7 WDI7TNP+XGm0N1DgBeygO4SxRLR2C4XhFzR0IBU0I7 QkMEbnJOL2Fy0jUZBXOk8+TEvwcTHatRrbRFBWZzM5GnJ5XEsvWOTJJo4Z ID Date Data Source [id number] 09/27/2020 01:10:27 PM [facility] Name Value Range Interpretation Code Description Data Neva rce(s) Supporting Document(s) Leukocytes [#/volume] in Blood by Automated count 8.1 10*3/uL 4-10 [facility] Erythrocytes [#/volume] in Blood by Automated count 4.13 10*6/uL 4.6- 6.1 L [facility] Hemoglobin [Mass/volume] in Blood 12.8 g/dL 13.5-18 L [facility] Hematocrit [Volume Fraction] of Blood by Automated count 37.7 % 4 1-53 L [facility] Erythrocyte mean corpuscular volume [Entitic volume] by Auto mated count 91.3 fL 80-96 [facility] Erythrocyte mean corpuscular hemoglobin [Entitic mass] by Automated count 31.1 pg 27-33 [facility] Erythrocyte mean corpuscular hemoglobin concentration [Mass/volume] by Automated count 34.0 g/dL 32.0-36.0 [facility] Erythrocyte distribution width [Ratio] by Automated count 14.0 % 11.5-14.5 [facility] Platelets [#/volume] in Blood by Automated count 220 10*3/uL 150-400 [facility] Differential cell count method - Blood [facility] Neutrophils/100 leukocytes in Blood by Automated count 71 % [facility] Lymphocytes/100 leukocytes in Blood by Automated count 8 % [facility] Monocytes/100 leukocytes in Blood by Automated count 11 % [facility] Eosinophils/100 leukocytes in Blood by Automated count 9 % [facility] Basophils/100 leukocytes in Blood by Automated count 1 % [facility] Neutrophils [#/volume] in Blood by Automated count 5.74 10*3/uL 1.8-7 .0 [facility] Lymphocytes [#/volume] in Blood by Automated count 0.68 10*3/uL 1.2-4 .0 L [facility] Monocytes [#/volume] in Blood by Automated count 0.89 10*3/uL 0-0.8 H [facility] Eosinophils [#/volume] in Blood by Automated count 0.73 10*3/uL 0-0.5 H [facility] Basophils [#/volume] in Blood by Automated count 0.09 10*3/uL 0-0.2 [facility] Nucleated erythrocytes/100 leukocytes [Ratio] in Blood by Automated count 0 /100{WBCs} 0-0 [facility] ID Date Data Source [id number] 09/27/2020 01:54:20 PM [facility] Name Value Range Interpretation Code Description Data Neva rce(s) Supporting Document(s) Albumin [Mass/volume] in Serum or Plasma by Bromocresol green (BCG) dye binding method 4.1 g/dL 3.5-5.2 [facility] al Bilirubin.total [Mass/volume] in Serum or Plasma 0.5 mg/dL <1.2 [facility] Calcium [Mass/volume] in Serum or Plasma 8.7 mg/dL 8.8-10.2 L [facility] Chloride [Moles/volume] in Serum or Plasma 96 mmol/L 98-107 L [facility] Creatinine [Mass/volume] in Serum or Plasma 0.75 mg/dL 0.70-1.20 [facility] Glucose [Mass/volume] in Serum or Plasma 100 mg/dL 70-140 [facility] Alkaline phosphatase [Enzymatic activity/volume] in Serum or Plasma 82 U/L 40-129 [facility] Potassium [Moles/volume] in Serum or Plasma 4.0 mmol/L 3.4-5.1 [facility] Protein [Mass/volume] in Serum or Plasma 6.3 g/dL 6.4-8.3 L [facility] Sodium [Moles/volume] in Serum or Plasma 130 mmol/L 136-145 [facility] Aspartate aminotransferase [Enzymatic activity/volume] in Serum or Plasma 14 U/L <40 [facility] Urea nitrogen [Mass/volume] in Serum or Plasma 11 mg/dL 8-23 [facility] Osmolality of Serum or Plasma by calculation 269 mosm/kg 275-300 [facility] Creatinine/Urea nitrogen [Mass Ratio] in Serum or Plasma 15 [facility] Bicarbonate [Moles/volume] in Serum 27 mmol/L 22-29 [facility] Alanine aminotransferase [Enzymatic activity/volume] in Seru m or Plasma 12 U/L <41 [facility] Anion gap 3 in Serum or Plasma 7 mmol/L 8-15 L [facility] Glomerular filtration rate/1.73 sq M pre dicted among non-blacks [Volume Rate/Area] in Serum or Plasma by Creatinine-based formula (MDRD) >6 0 [facility] Glomerular filtration rate/1.73 sq M pre dicted among blacks [Volume Rate/Area] in Serum or Plasma by Creatinine-based formula (MDRD) >60 [facility] ID Date Data Source [id number] 09/27/2020 01:54:20 PM [facility] Name Value Range Interpretation Code Description Data Neva rce(s) Supporting Document(s) Thyrotropin [Units/volume] in Serum or Plasma 3.470 u[IU]/mL 0.270-4. 200 [facility] ID Date Data Source [id number] 09/27/2020 02:18:50 PM [facility] Name Value Range Interpretation Code Description Data Neva rce(s) Supporting Document(s) Ferritin [Mass/volume] in Serum or Plasma 155 ng/ml 30-400 [facility] ID Date Data Source [id number] 09/27/2020 02:46:56 PM [facility] Name Value Range Interpretation Code Description Data Neva rce(s) Supporting Document(s) Iron [Mass/volume] in Serum or Plasma 100 ug/dl 59-158 [facility] Transferrin [Mass/volume] in Serum or Plasma 222 mg/dL 200-360 [facility] Iron binding capacity [Mass/volume] in Serum or Plasma 308 ug/dl 228 -428 [facility] Iron saturation [Mass Fraction] in Serum or Plasma 33.0 % 20-55 [facility] ID Date Data Source [id number] 09/06/2020 09:06:28 AM [facility] Value Range Interpretation Code Description Data Neva rce(s) Supporting Document(s) Progress Note [facility] YQMIJq8sDrUCZkYe49/FDSbhXMFog9VuIFkiYZu4XNofNUAxJ1LuLHX5oQ4kGES0ADaNWcYtGtYgTOO6 lbm [file] Nguyễn/JMQIWYsrouyFZQ3cNom0QRslo6BBCLwt5NGbiECKcBY+dU3uTiYmhlAQ3YKimFf7oP4Ehq3ZSMnI [file] ICAgICAgICAgICAgICAgICAgICAgICAgICAgICAgIC VvRJCoJZRsSWArKKMrYRCiQVMjONBvWCOqKSOlNDNxYR8TMDUySCDxPCUzPLPvYJQxLDXnBLYvMGUvUD AgICAgICAgICAgICAgICAgICAgICAgICAgICAgICAgICAgICAgICAgICAgICAgICAgICAgICAgICAgIC TzCMOuFAGaDPYaKKTdUO1KDJGsVMOdGJGvSNZeOVSd ICAgICAgICAgICAgICAgICAgICAgICAgICAgICAgICAgICAgICAgICAgICAgICAgICAgICAgICAgICAg ZESnZFBaPVJwXCPaJHGtDBLhUWSyBKCfFY2MBIMdOONeWCKfSEXkOBBqLANvQYXiSZExFCNvHQYjGTYw ICAgICAgICAgICAgICAgICAgICAgICAgICAgICAgIC MqHWJsEOIrRMMsSTTpIGXoOTChIVLbDOJcQJOzNEUfMESvLW5LOAQfJISjYSUcHGDcMZDeKZOqZDIyKV AgICAgICAgICAgICAgICAgICAgICAgICAgICAgICAgICAgICAgICAgICAgICAgICAgICAgICAgICAgIC FkKWAoWMCxURXwDCJgYFRrNP0TZDAhRYDrSDYlBQIi ICAgICAgICAgICAgICAgICAgICAgICAgICAgICAgICAgICAgICAgICAgICAgICAgICAgICAgICAgICAg DNTjETZmUSIfFFLnWVEnJODqNGEkGUXcJQOwJX7TMKEyABXgQGUeNREkCAQoPTZlKODmEBHbFSBkKRRs ICAgICAgICAgICAgICAgICAgICAgICAgICAgICAgIC DfMAFsWRLgUGEhMPJnEVBeUMRpXOQsJXEgDSPjDQLnBFGqQBNqMS1MXAPlFAHiMVExCFQpHCLdXSUwFP AgICAgICAgICAgICAgICAgICAgICAgICAgICAgICAgICAgICAgICAgICAgICAgICAgICAgICAgICAgIC BoGAIrZUWxYYDoBSRrDALzZYTnWH0UXQIpOVByTJWs ICAgICAgICAgICAgICAgICAgICAgICAgICAgICAgICAgICAgICAgICAgICAgICAgICAgICAgICAgICAg THBoZCFbRCDnWMArLDDrSXRzRHGeMLQiOEAaEILuOE7YVJNhOVSnSKYbOUVqLUIxQJXtOVBqCNYqZCKm ICAgICAgICAgICAgICAgICAgICAgICAgICAgICAgIC YyTZAxUZZoSJMkIDKcAVLtGSCkAIYzKBQdJHLxGLNxEAYyBJWpDMZyTO5PMO03aGOth2Y3SXBnPX4otc c/Gq9QPSodcuQazTCaVX6LAmDpFQ7mmw9OVrBfUK7doa1APWlCAfRcQ1A5hTBdQOReNEALCnCoI08aAP zdOz98WOkaLMRxIvMsIYe9Pg2QYlIeV5ciNOKdGhH0 NIJiLbY2ZSDrFpEdAFAsJQAoEAWdWBQXIOO2GVEaZzRfZkFkCSAhOBsoIPPYHM2OVhZpM0ZefD32BVsT Cj4+HEfatmWyVwkZWgV2MHHpi9RnVZo6ZB1DHMCjWhzgr0IyPeCvBCDCVEwfBF1JWVB3APQ6XNGvXz0K FUIvN457phIuXR2VBa5CUkTbFL0mwf1DRvAdPFUbVf uZMte1ZDtfDG0KiEPiRUgHvq3xqlBnuzXCq7EcjlQesDYBjAPmtWTyRPyuQ1Turuzyfx4jPQ7WOUV9PA QrEcM8CoNaVbReDBF1PAHlIL9cHPplGD6QEHG1AWzkMICvKIEuD4rWMwOnEMNvDdNzaLpjCK6DIuKyL3 BhcmVudCAzNSAwIFINCj4+DQplbmRvYmoNCjYgMCBv BdmWSux6GOhuTM1DuWXgTC4Dwl9qhLPoM5BivPzaKKOnWBofnsFyKh1kJQIlOKriZDWsTO6bY4eyR2ec L9LbDUBCHkRkF6AwJ2FeHnFeIIC8QPJaEPNnDFE0VCEIHsEfO6MqCSigLvBnJXZUUL8ONbyrLIFeGbaB EVzLI6TXPRrQDOHKIf8WU17FX68SKUKXVH5AK1mFZi spID4+FE7QEa9HZcLbKA7rdn2YGrziFKLaAjlLIyc4LOupOQ0CqVSnS4ChzQWle5iUStNuF0GVDBCfQI QyZt9EPJHtBlHyCNQyNHheBU8zTYWhZELPhGyoyiZ1TX2TCJ3nlsGpWF6EAdJdNg0bVr5VFiItX8YfU1 LkAMDwGEFFXEzqJY6IMLjwHP1eZF2Yq9YUgCYkiF6r bm8PWATnRSUwYixohe5XDplnZ6J3qQzpUFIuQrOyIHWCPZkaXN5ZGYTaKLZ6AYKpKZEyTDEBIrFsA34y OB1CI7Dgv83fIhG8SHAjXqDpDRbuNG35eItzupLjnOOumVkyVE8NLs1+DQplbmRvYmoNCnhyZWYNCjAg IyeKRmMtZOKjSOHhHYHtZfJ5RmLnWu6TBLOmXRNmDA YgUxFdPEDyPANmBGruHCXoKYZyDHB0VDEqIIOiGC2HMsZqZSUjNTLzToHsXHUeLDBuxu3TMFTtSORjCX L7TuGqMXXdOOKyFEzmDSTlPBAhSbD1CTNsWXXpRV5FMnMpPMJyTEI3GsjeLDCiZFAxwe7SZOGqXYIcOr Y2PLNaRQUoZLNxJUypHJJoNVE3WXG5RUVkWDRoKD4J FbSgGVVeRFxoFwPdUTWbWODfmq1QVNLpSUDkYQE0MLSyYNTxIAYnLEjyELXmWBIdOXIqGGHcUDNeAT5C VcOwZEYsIXHlZmteBBXtVWAuyn4ZCPKnKJQuCBTsIsIhDYLqYCZkXElqQPPsFXM7LQH2PJZxGXJmUW1S YnQzQNCmYOnsMlNdRXOrXXSzya1XCBLfYLGpIis4Yb NfDYHkIKTnKCmlXSXaKZYiAJlbFSYkYAXxFE3IJnTmWRIuEbJ8XKNrCQAnYUOlcv0LXYUkEXDjECW8Ov TmSIZmJRIhPAhqZKJtJQS9VPU9GUWpFTSeAD8DKjIyBBUmWlYaHGQkJGVzNYWioo3ILOKtNZLnDiU5Yc LgWQBpHVIxGLkiCJVuKZV4QDH7KSGoUYXyZX3RIrDx UVAaTvn5MSxsNIPrDYNkba8YCLFwBGFsEutuGjFyLROnZTDwVUwrFTKnQOC1XxW7APChOLXoTH3XJnPd SAXhHmo8SLVlTZYkPYVgcq9VZJDjJRHfPYzkARGlDDUaXUWqCQabQVRiKDRyVGGlNCOqUQGbCB7CUkGx WYHoRHFpRLAdHKWrOGSltb5TYBLoRMB2IMT1PTIjUR CeJKBcMAvqMFRqUTJmSuM3QOAzIYTiAJ1LIyUuYUVmSEF5ELYaEBPxVRTtdo0CNSJtGZZ7BAvdKmAkJE IwFJQxNVvnJOYaUCBmFEToNFEmZJAiHV1CMjZrJAObENV4MvUkMAIvBLJliz0GPTEcYYD4JcboOmRqCL JeWNJtOYf9ouSisDZhFOr8RK8UX6RsasRmQzrKXf3Z x513TYB8KLDyZv4JZ9gyRk8vXAGxCDHQSr4AHEt9RNx5BTXoJBA1SBX9JSZ1RHo0WEKaDPrzVeVxTQN7 YzI+REtvMgb8DTK0AJo2OWi8RyHjGWknTxF7NHY1UgDlXtkuLm8qBZLMRx8+DQpzdGFydHhyZWYNCjQ0 PZN8QQawVYRTDk9X ID Date Data Source [id number] 09/03/2020 11:25:07 AM [facility] Name Value Range Interpretation Code Description Data Neva rce(s) Supporting Document(s) Leukocytes [#/volume] in Blood by Automated count 8.6 10*3/uL 4-10 [facility] Erythrocytes [#/volume] in Blood by Automated count 4.10 10*6/uL 4.6- 6.1 L [facility] Hemoglobin [Mass/volume] in Blood 13.1 g/dL 13.5-18 L [facility] Hematocrit [Volume Fraction] of Blood by Automated count 37.2 % 4 1-53 L [facility] Erythrocyte mean corpuscular volume [Entitic volume] by Auto mated count 90.7 fL 80-96 [facility] Erythrocyte mean corpuscular hemoglobin [Entitic mass] by Automated count 32.0 pg 27-33 [facility] Erythrocyte mean corpuscular hemoglobin concentration [Mass/volume] by Automated count 35.3 g/dL 32.0-[facility] distribution width [Ratio] by Automated count 13.3 % 11.5-14.5 [facility] Platelets [#/volume] in Blood by Automated count 220 10*3/uL 150-400 [facility] Differential cell count method - Blood [facility] Neutrophils/100 leukocytes in Blood by Automated count 76 % [facility] Lymphocytes/100 leukocytes in Blood by Automated count 7 % [facility] Monocytes/100 leukocytes in Blood by Automated count 9 % [facility] Eosinophils/100 leukocytes in Blood by Automated count 7 % [facility] Basophils/100 leukocytes in Blood by Automated count 1 % [facility] Neutrophils [#/volume] in Blood by Automated count 6.53 10*3/uL 1.8-7 .0 [facility] Lymphocytes [#/volume] in Blood by Automated count 0.58 10*3/uL 1.2-4 .0 L [facility] Monocytes [#/volume] in Blood by Automated count 0.81 10*3/uL 0-0.8 H [facility] Eosinophils [#/volume] in Blood by Automated count 0.60 10*3/uL 0-0.5 H [facility] Basophils [#/volume] in Blood by Automated count 0.10 10*3/uL 0-0.2 [facility] Nucleated erythrocytes/100 leukocytes [Ratio] in Blood by Automated count 0 /100{WBCs} 0-0 [facility] ID Date Data Source [id number] 09/03/2020 12:06:02 PM [facility] Name Value Range Interpretation Code Description Data Neva rce(s) Supporting Document(s) Thyrotropin [Units/volume] in Serum or Plasma 3.160 u[IU]/mL 0.270-4. 200 [facility] ID Date Data Source [id number] 09/03/2020 12:06:02 PM [facility] Name Value Range Interpretation Code Description Data Neva rce(s) Supporting Document(s) Albumin [Mass/volume] in Serum or Plasma by Bromocresol green (BCG) dye binding method 4.2 g/dL 3.5-5.2 [facility] Bil[facility].total [Mass/volume] in Serum or Plasma 0.6 mg/dL <1.2 [facility] Calcium [Mass/volume] in Serum or Plasma 9.1 mg/dL 8.8-10.2 [facility] Chloride [Moles/volume] in Serum or Plasma 96 mmol/L 98-107 L [facility] Creatinine [Mass/volume] in Serum or Plasma 0.72 mg/dL 0.70-1.20 [facility] Glucose [Mass/volume] in Serum or Plasma 81 mg/dL 70-140 [facility] Alkaline phosphatase [Enzymatic activity/volume] in Serum or Plasma 80 U/L 40-129 [facility] Potassium [Moles/volume] in Serum or Plasma 4.0 mmol/L 3.4-5.1 [facility] Protein [Mass/volume] in Serum or Plasma 6.7 g/dL 6.4-8.3 [facility] Sodium [Moles/volume] in Serum or Plasma 131 mmol/L 136-145 L [facility] Aspartate aminotransferase [Enzymatic activity/volume] in Serum or Plasma 19 U/L <40 [facility] Urea nitrogen [Mass/volume] in Serum or Plasma 14 mg/dL 8-23 [facility] Osmolality of Serum or Plasma by calculation 271 mosm/kg 275-300 L [facility] Creatinine/Urea nitrogen [Mass Ratio] in Serum or Plasma 19 [facility] Bicarbonate [Moles/volume] in Serum 25 mmol/L 22-29 [facility] Alanine aminotransferase [Enzymatic activity/volume] in Seru m or Plasma 16 U/L <41 [facility] Anion gap 3 in Serum or Plasma 10 mmol/L 8-15 [facility] Glomerular filtration rate/1.73 sq M pre dicted among non-blacks [Volume Rate/Area] in Serum or Plasma by Creatinine-based formula (MDRD) >6 0 [facility] Glomerular filtration rate/1.73 sq M pre dicted among blacks [Volume Rate/Area] in Serum or Plasma by Creatinine-based formula (MDRD) >60 [facility] ID Date Data Source [id number] 08/24/2020 02:01:00 PM [facility] [address] [id number] [phone] NAME SEX PT STATUS ACCOUNT NUMBER ANTONIO ABRAMS REG REF [id number] ORDERING PHYSICIAN LOCATION MEDICAL RECORD NO. ESPERANZA FERGUSON [id number] ATTENDING PHYSICIAN DATE OF DATE OF EXAM/TIME Abdi Hong 1935 08/24/201129 TYPE / EXAM NM Cardiac Muga REASON FOR EXAM CARDIOMYOPATHY, UNSPECIFIED MUGA SCAN INDICATION: Chemotherapy, cardiomyopathy, status post lung cancer. PROCEDURE: Blood pooling images were performed after injection of 27.2 millicuries of magnesium pyrophosphate followed by 30.73 millicuries of sodium pertechnetate. Multiple gated images were obtained in SERBIAN projection. Ejection fraction calculated was 54%. FINDINGS: Analysis revealed left ventricular ejection fraction of 54%. IMPRESSION: Normal left ventricular systolic function. Reported By Bear Camarillo MD on 08/24/20 1401 Signed By Bear Camarillo MD on 09/10/20 1737 <<Signature on File>> Date Time CC: Bear Camarillo M.D.; ABDI HONG Techn: GRAMR Trans Dt/Tm: 08/24/20 1432 Trans by: MB Prt Dt/Tm: : Total DLP = 0.00 mGy-cm : Total Radiation Dose = 0.0000 mSv Lifetime Dose: 0 mSv Name Value Range Interpretation Code Description Data Neva rce(s) Supporting Document(s) ID Date Data Source [id number] 08/17/2020 09:06:03 AM [facility] Name Value Range Interpretation Code Description Data Neva rce(s) Supporting Document(s) Progress Note [facility] ZFAUTj1zAbFEYjWz75/KKGdlWUIzz3IkUZkfDGy9QFqnLKMjX4NaGQN4aO5kXRM7NBdIOaHfAiEsENRx lbm [file] ATTENDANCE CLERK+Qf6YBXXhLJb8S4P2JVVbEVq8Y0QEE2TFTYMrPSwbSZcwAXZnSSh0O1A0YDOeU8XIZ1Lgnrizyf6+ AX5XP00OFANkHUv2J4C1qMXaB2R1hPiBqDY3AP8OPK7YhKo2wODilX9+GT5PJ5HIWmGsEJw5K3V4mBYy R5U7iStSnHS6WA6GLC9ZhOBmQBGkxgHzDr1jP5WAGZ gGUuXDKXU3SG5OwVSdAI1MlRLUE4XowPVgCp0mGUwkeLPheE8hWo8xXNbtEC1JTvMJETiUKVS3QU6QoY GcED0KcEUFW7BsyEEbJk9bJKxhhMShru2+VN5LOAKdLn4MPa9+WTdvzxFjWqbDGkB3RSLqk1KqWQo9KQ 2CQR1rwEnwYAD4Om9HoTG6mGQwM8sIRV0BgMZwC77u eOOoZPTiVd9AHfB9rjZaaU0RRT67rUBij8B0AXIrS6gjIErzf21nHAhfEBvABE4zIQZOFLloBTozMPX1 TgQzeuilDXDfTl3SSjLvFZo7xE1egUS9KVQ6MdslrPXvXVnpMjKmFlOyDjK1vAadfxi9VCxmMS2dVRpr czptZXRhLyc+TKwzBLWeCXUnUrbAYPWqhU2iifY1aw WqEYrefOVrYk4nq0w0XtoiKw0fXr4tJPs4SfEdDgRsFFNxQb8hgR81YRglgeVhJg2OMsXfBDY6C8QyLd pSREY+FAylWNmcaQg2pWVbPKZuQu1FASToBSIdTDUqNEKwXRViLIBjOIMgIJRwQRMaPBQqQJUgDZQfGZ AgICAgICAgICAgICAgICAgICAgICAgICAgICAgICAg LQYhQSArOSCiFLUzIIVpCMYrBTEeXIZvRIDaNYVlVE9IIMZuQHEiGHBvRGZdCYUwKKSuXJFmVOUsHFTb ICAgICAgICAgICAgICAgICAgICAgICAgICAgICAgICAgICAgICAgICAgICAgICAgICAgICAgICAgICAg GPAgVYFrIBJhCYCqQH0QGZHrBJBqWODxRMFfRZVqHJ AgICAgICAgICAgICAgICAgICAgICAgICAgICAgICAgICAgICAgICAgICAgICAgICAgICAgICAgICAgIC QxYICpRDBpUSZxSGEaOQTiMDDdXPRsQV6ZHGTdJIOtQPPrPROkDSDmYOEhNQAzPAVkUNZqZDHyKTKvTT AgICAgICAgICAgICAgICAgICAgICAgICAgICAgICAg JJTqFPKeWBNbFHTeRQWlRCHxCVCqBQVwBBGtMUVtTWMxPB1PWVBlFMFyAUUxKXDmGWTtLYQwUHPlSLTq ICAgICAgICAgICAgICAgICAgICAgICAgICAgICAgICAgICAgICAgICAgICAgICAgICAgICAgICAgICAg MZKnWDUmWTLmGMJaVFQfTJ3RYIYaUWEpLCEiZDShMW AgICAgICAgICAgICAgICAgICAgICAgICAgICAgICAgICAgICAgICAgICAgICAgICAgICAgICAgICAgIC XhSGPfDHGwPLHiEQAdQCFyGYAkRWLdTQHmPM5STYOmFWXmENJyWTDaVKHaCVBwAXSaSHYqBUHnWSYsWS AgICAgICAgICAgICAgICAgICAgICAgICAgICAgICAg HNZjDSXdEEJxVZVoBHEkYMHkPXTzPULfVGXoYPQmLKFjYZEeIO5RXDGwUSOaGTSmDFAtJLMyZEPyNOXy ICAgICAgICAgICAgICAgICAgICAgICAgICAgICAgICAgICAgICAgICAgICAgICAgICAgICAgICAgICAg ZTZnTANhCTGxMHVtILJiTOQiYT2DAUFyPHHzFDDgSE AgICAgICAgICAgICAgICAgICAgICAgICAgICAgICAgICAgICAgICAgICAgICAgICAgICAgICAgICAgIC MkGRCoVMBoYAMqQTQmPYBqOQLuKVPwDFJdTUQqKI2XYERlKPDcQORbQGFrKEGtDAUzNSFdRWUbWOLcXB AgICAgICAgICAgICAgICAgICAgICAgICAgICAgICAg XSWkPUMhDDKfEQGfFHCjJEJxKUJaOLFvDBByGKDoVUHbLIHsNPEiVZ6GVE28wHYgz8P2FIFtYD2oock/ Rp0ALBlkweNrvYZnHN0EBmRwXK9jmk6JYdBxIJ1bwj1GKLsUAiVcP7I2lNGrKSUiRXPISpOvW30sNRag Yt87INjeZHMdBpNaMXp5Ud8NYeXrY0lzJDEqQdX3HQ NsAfJ7DXLzYhLzSONvTFMgWOIiMFZIHGY2NZLrIjWiJxTqTNPjQChuKKIENHZdYPQtMxTuZlNvSCYnTF 4XYQRzJ022ozQnPI2DPl9NZxOoYV3ahk7QMcdgABEpIijSRxo0NLxbGR3QkQHtaOQ5TJSdJIMHXaYeA0 ydu2QyGEFgFZLMDSquGG6Bu5MaqFHrXPe+Aw9KSV4m p1OzBOz1EWLzHG1pmf1OBNpWVvVxR6ZfyBbjGDAfa4ekXLPsML1reWBxQNC7RTvsqkTqfK8cSBKPtHAd FBCoTG1TOWN6MQVhFmV1UeZwEiNiRZS4UXMcXE0tIUatMA0XKSO2JEtpYYLmFEGvX8bSSeFiUDOeDsBo wVyyFH9PFsVbV9VsofHfjBWyVSYoBSEOKs2+DQplbm TyNqaJVzMlUNXiEqtWFjy7AJbmUP0ZvZExDJ0Eyn7saICjX9AhhZbnWMGdSIfditSgXd7zRDFuJIjrPG HzFM5uM5euA1flK0IyASKCWzKeX4OnK9AiWtDzKJM1AJBxMNBiKMW3VWYMRbVfB5FuILbyGwUwHASTBA 8PAhgiLHNmZzsIJGrAE1CBFCfUGZHOZg4TS52EG16W WPIPOP4WF6uXDvqiXI7+HC7RDv6LRzKeJS5kvm2NXGLqKUHpVjxQIck1HMrrOL9RkQYgK2GrlVLfo0xT EvWsJ9APATU0PIXtMc5HSOLbXxJcQVVfJJzfTI6uQKXhOJACjCzyomF5GK1CBL1aobVeBS0UQgVqIf0a Lm0WHgPfK5TkJ6GgAFNzHWAXEFbvUI3EWAvaTE9ySV 7Ga6YEhMHcpC7olq8YUCFuHDCeHfukwl7UXqwoM4H1rDslXOCiTaszSGVIAJmzFO2PCDUkRVY8BZEyYT AbAFENYxSbY70iFS9ZU0Fcz14vDdF2GSOqOlTfPDrcCG84oDlagmUhnOUltFxoXZ5HUp4+DQplbmRvYm xVOgzlBQYTVdTjMSRFFlBfQZEkRLKqJOSsPlR5WeBv Gd7JKCUlLHSaZIKcVyTzMVXiDQUsSXdqJZPwBGH1DCToJGBuFHRbNH1XMsZgLDHcARo3VafmYQNmALHp eh1DKNWlEGFwMEM2DqVmYRKeHGZkGRmsLMZxHRLqNoS7EVMnYQDoSP3WFwQjHFQrUJlnBFRbAWGuYPGv qh0HCMXqSULmVdC4QqTfJUIdIOGtOMblAFRfGWD3Wn OfLNVlDVWaRF4MUhNnVXGfPAx2FKRhXFSoQXRtyx1AUHOfWLGaHxCjNGNkGUQkZFFvWWklLBXaTBAzRU PqMJWcIQTwTE8MIrFkQHOjWWC1SBAjWKSiPLMsiu9OXGLmWEYhMSh1LaDlNDLnYFMrVEqfGYEoDEI4BO VhTZOfJULgMF5SFnXwQVLtLNslBXcjSPSjTFUwxn4Y XLEdJXBmWjK2DyKhBXRsFJEzBRjjRJBxUBCtErocHJFrHBAiGR7CWoXmJOAdGoV6WUXkYBHsSJTiyg4D FFYkPTKrVSE6ToZjSRXiJXApYSiqMMLkTDI6BIB9FCZeHQBrZV6HJkXgLKGwAlXpIOWnYLJpZVRgei9I SNYgYPIdLLK8USIzLOWiNAElMLloOSLcEXGzZsCnRB EqXURoDW7HStHmZMRuAaY5SINpTSFpIHEvxj2VJWHfGSZnQRiwHUZpTJYkHWQoEDaeLTFcUAJcUFubQV KoSKCgMN8MCrZhWXNeZxFyDVHwNXDeUHDyph6ZYQJaSNUwQxL7JyJvOTFbFYKvUGnsDJYmCVJhZPFoZC JaSZXdPT0NIkKaBMLeERL7CbHcXUCgLCAumy1BRBOa OWW9ZEB4EQTbLFDwKGScYYldNKCjPZI3KZH2NSPlOBSmWW6POgZrOBNdPHV3KJZtIIQmIGXmuo5CTVUa NEJ3FDikLWMsUUMuKZIxTFlnRWXvRGV2ChU0OQQjNVOdOZ4YKkQzCVCqEAU6EdBxTGCkYKFqpx6EKXTa OBO3EuAnFZBmBVGzFCJvTLkcTVIiRJF9EQI3FZBoDL BtRU8KTjEtTWXnBDgsDxYgETOeFTOaeq3WZGWzHYC9KJO2XRKkYSWxHGBxGXvxWWQiFNL0XPB7CSPzXK FzRG0CYeMjXQsbMVMNJqo5LMgzV9w0SXC4Oo7AZ0Vds1CdHUPuDAISJHthNZ6mejBkUDPsYh1UI1yKCi w2DlUlQxQaYETrZKP3IMvyItPlV9QmCdLiFRNfJbA4 ZU8hQZqcHOHeFUGrXPLjYNL3PaNkLYAeBdUxLjDqZHEyZiYfDiEnLK3PSu8DAeN1ALD9iPAyXt6SDMj9 [id number]= ID Date Data Source [id number] 08/13/2020 12:50:16 PM EDT [facility] Name Value Range Interpretation Code Description Data Neva rce(s) Supporting Document(s) Leukocytes [#/volume] in Blood by Automated count 8.1 10*3/uL 4-10 [facility] Erythrocytes [#/volume] in Blood by Automated count 4.02 10*6/uL 4.6- 6.1 L [facility] Hemoglobin [Mass/volume] in Blood 13.0 g/dL 13.5-18 L [facility] Hematocrit [Volume Fraction] of Blood by Automated count 36.4 % 4 1-53 L [facility] Erythrocyte mean corpuscular volume [Entitic volume] by Auto mated count 90.5 fL 80-96 [facility] Erythrocyte mean corpuscular hemoglobin [Entitic mass] by Automated count 32.4 pg 27-33 [facility] Erythrocyte mean corpuscular hemoglobin concentration [Mass/volume] by Automated count 35.7 g/[facility] width [Ratio] by Automated count 13.4 % 11.5-14.5 [facility] Platelets [#/volume] in Blood by Automated count 224 10*3/uL 150-400 [facility] Differential cell count method - Blood [facility] Neutrophils/100 leukocytes in Blood by Automated count 75 % [facility] Lymphocytes/100 leukocytes in Blood by Automated count 8 % [facility] Monocytes/100 leukocytes in Blood by Automated count 10 % [facility] Eosinophils/100 leukocytes in Blood by Automated count 6 % [facility] Basophils/100 leukocytes in Blood by Automated count 1 % [facility] Neutrophils [#/volume] in Blood by Automated count 6.12 10*3/uL 1.8-7 .0 [facility] Lymphocytes [#/volume] in Blood by Automated count 0.68 10*3/uL 1.2-4 .0 L [facility] Monocytes [#/volume] in Blood by Automated count 0.79 10*3/uL 0-0.8 [facility] [facility] Eosinophils [#/volume] in Blood by Automated count 0.48 10*3/uL 0-0.5 [facility] Basophils [#/volume] in Blood by Automated count 0.08 10*3/uL 0-0.2 [facility] Nucleated erythrocytes/100 leukocytes [Ratio] in Blood by Automated count 0 /100{WBCs} 0-0 [facility] ID Date Data Source [id number] 08/13/2020 01:26:58 PM EDT [facility] Name Value Range Interpretation Code Description Data Neva rce(s) Supporting Document(s) Albumin [Mass/volume] in Serum or Plasma by Bromocresol green (BCG) dye binding method 4.0 g/dL 3.5-5.2 [facility] Bilirubin.total [Mass/volume] in Serum or Plasma 0.4 mg/dL <1.2 [facility] Calcium [Mass/volume] in Serum or Plasma 9.2 mg/dL 8.8-10.2 [facility] Chloride [Moles/volume] in Serum or Plasma 95 mmol/L 98-107 L [facility] Creatinine [Mass/volume] in Serum or Plasma 0.76 mg/dL 0.70-1.20 [facility] Glucose [Mass/volume] in Serum or Plasma 89 mg/dL 70-140 [facility] Alkaline phosphatase [Enzymatic activity/volume] in Serum or Plasma 81 U/L 40-129 [facility] Potassium [Moles/volume] in Serum or Plasma 3.6 mmol/L 3.4-5.1 [facility] Protein [Mass/volume] in Serum or Plasma 6.6 g/dL 6.4-8.3 [facility] Sodium [Moles/volume] in Serum or Plasma 133 mmol/L 136-145 L [facility] Aspartate aminotransferase [Enzymatic activity/volume] in Serum or Plasma 16 U/L <40 [facility] Urea nitrogen [Mass/volume] in Serum or Plasma 10 mg/dL 8-23 [facility] Osmolality of Serum or Plasma by calculation 274 mosm/kg 275-300 L [facility] Creatinine/Urea nitrogen [Mass Ratio] in Serum or Plasma 13 [facility] Bicarbonate [Moles/volume] in Serum 28 mmol/L 22-29 [facility] Alanine aminotransferase [Enzymatic activity/volume] in Seru m or Plasma 15 U/L <41 [facility] Anion gap 3 in Serum or Plasma 9 mmol/L 8-15 [facility] Glomerular filtration rate/1.73 sq M pre dicted among non-blacks [Volume Rate/Area] in Serum or Plasma by Creatinine-based formula (MDRD) >6 0 [facility] Glomerular filtration rate/1.73 sq M pre dicted among blacks [Volume Rate/Area] in Serum or Plasma by Creatinine-based formula (MDRD) >60 [facility] ID Date Data Source [id number] 08/13/2020 01:26:58 PM EDT [facility] Name Value Range Interpretation Code Description Data Neva rce(s) Supporting Document(s) Thyrotropin [Units/volume] in Serum or Plasma 3.480 u[IU]/mL 0.270-4. 200 [facility] ID Date Data Source [id number] 08/02/2020 02:12:00 PM EDT [facility] Name Value Range Interpretation Code Description Data Neva rce(s) Supporting Document(s) Nuclear Lexiscan/Myoview Laboratory test result [facility] ID Date Data Source [id number] 07/26/2020 02:26:00 PM EDT [facility] Name Value Range Interpretation Code Description Data Neva rce(s) Supporting Document(s) Echocardiogram Laboratory test result [facility] ID Date Data Source [id number] 07/19/2020 03:58:41 PM EDT [facility] Name Value Range Interpretation Code Description Data Neva rce(s) Supporting Document(s) Progress Note [facility] [id number] lbm [file] [id number] ID Date Data Source [id number] 07/19/2020 03:53:00 PM EDT [facility] Name Value Range Interpretation Code Description Data Neva rce(s) Supporting Document(s) Albumin [Mass/volume] in Serum or Plasma by Bromocresol green (BCG) dye binding method 4.2 g/dL 3.5-5.2 [facility] Bilirubin.total [Mass/volume] in Serum or Plasma 0.5 mg/dL [facility] Calcium [Mass/volume] in Serum or Plasma 9.1 mg/dL 8.8-10.2 [facility] Glucose [Mass/volume] in Serum or Plasma 227 mg/dL 70-140 Above high normal [facility] Chloride [Moles/volume] in Serum or Plasma 96 mmol/L 98-107 [place] w low normal [facility] Alkaline phosphatase [Enzymatic activity/volume] in Serum or Plasma 86 U/L 40-129 [facility] Creatinine [Mass/volume] in Serum or Plasma 0.85 mg/dL 0.70-1.20 [facility] Sodium [Moles/volume] in Serum or Plasma 128 mmol/L 136-145 Below low normal [facility] Potassium [Moles/volume] in Serum or Plasma 3.7 mmol/L 3.4-5.1 [facility] Protein [Mass/volume] in Serum or Plasma 6.7 g/dL 6.4-8.3 [facility] Creatinine/Urea nitrogen [Mass Ratio] in Serum or Plasma 9 [facility] Aspartate aminotransferase [Enzymatic activity/volume] in Serum or Plasma 15 U/L [facility] Urea nitrogen [Mass/volume] in Serum or Plasma 8 mg/dL 8-23 [facility] Osmolality of Serum or Plasma by calculation 271 mosm/kg 275 -300 Below low normal [facility] Bicarbonate [Moles/volume] in Serum 23 mmol/L 22-29 [facility] Anion gap 3 in Serum or Plasma 9 mmol/L 8-15 [facility] Alanine aminotransferase [Enzymatic activity/volume] in Serum or Plasma 9 U/L [facility] Glomerular filtration rate/1.73 sq M pre dicted among non-blacks [Volume Rate/Area] in Serum or Plasma by Creatinine-based formula (MDRD) Laboratory test result [facility]) Glomerular filtration rate/1.73 sq M pre dicted among blacks [Volume Rate/Area] in Serum or Plasma by Creatinine-based formula (MDRD) Laboratory test result [facility] ID Date Data Source [id number] 07/19/2020 03:24:00 PM EDT [facility] Name Value Range Interpretation Code Description Data Neva rce(s) Supporting Document(s) Leukocytes [#/volume] in Blood by Automated count 9.0 10*3/uL 4-10 [facility] Erythrocytes [#/volume] in Blood by Automated count 4.22 10*6/uL 4.6-6.1 Below low normal [facility] Hematocrit [Volume Fraction] of Blood by Automated count 38.6 % 41-53 Below low normal [facility] Hemoglobin [Mass/volume] in Blood 13.7 g/dL 13.5-18 [facility] Erythrocyte mean corpuscular volume [Entitic volume] by Auto mated count 91.5 fL 80-96 [facility] Erythrocyte mean corpuscular hemoglobin [Entitic mass] by Automated count 32.3 pg 27-33 [facility] Erythrocyte mean corpuscular hemoglobin concentration [Mass/volume] by Automated count 35.3 g/dL 32.0-36.0 [facility] Erythrocyte distribution width [Ratio] by Automated count 13.3 % 11.5-14.5 [facility] Platelets [#/volume] in Blood by Automated count 256 10*3/uL 150-400 [facility] Differential cell count method - Blood Laboratory test result [facility] Lymphocytes/100 leukocytes in Blood by Automated count 7 % [facility] Monocytes/100 leukocytes in Blood by Automated count 7 % [facility] Neutrophils/100 leukocytes in Blood by Automated count 80 % [facility] Lymphocytes [#/volume] in Blood by Automated count 0.66 10*3/uL 1.2-4.0 Below low normal [facility] Neutrophils [#/volume] in Blood by Automated count 7.22 10*3/uL 1.8-7.0 Above high normal [facility] Basophils/100 leukocytes in Blood by Automated count 1 % [facility] Eosinophils/100 leukocytes in Blood by Automated count 5 % [facility] Monocytes [#/volume] in Blood by Automated count 0.64 10*3/uL 0-0.8 [facility] Basophils [#/volume] in Blood by Automated count 0.08 10*3/uL 0-0.2 [facility] Eosinophils [#/volume] in Blood by Automated count 0.42 10*3/uL 0-0.5 [facility] Nucleated erythrocytes/100 leukocytes [Ratio] in Blood by Automated count 0 /100{WBCs} 0-0 [facility] ID Date Data Source [id number] 07/19/2020 11:24:28 AM [facility] Name Value Range Interpretation Code Description Data Neva rce(s) Supporting Document(s) Leukocytes [#/volume] in Blood by Automated count 9.0 10*3/uL 4-10 [facility] Erythrocytes [#/volume] in Blood by Automated count 4.22 10*6/uL 4.6- 6.1 L [facility] Hemoglobin [Mass/volume] in Blood 13.7 g/dL 13.5-18 [facility] Hematocrit [Volume Fraction] of Blood by Automated count 38.6 % 4 1-53 L [facility] Erythrocyte mean corpuscular volume [Entitic volume] by Auto mated count 91.5 fL 80-96 [facility] Erythrocyte mean corpuscular hemoglobin [Entitic mass] by Automated count 32.3 pg 27-33 [facility] Erythrocyte mean corpuscular hemoglobin concentration [Mass/volume] by Automated count 35.3 g/dL 32.0-36.0 [facility] Erythrocyte distribution width [Ratio] by Automated count 13.3 % 11.5-14.5 [facility] Platelets [#/volume] in Blood by Automated count 256 10*3/uL 150-400 [facility] Differential cell count method - Blood [facility] Neutrophils/100 leukocytes in Blood by Automated count 80 % [facility] Lymphocytes/100 leukocytes in Blood by Automated count 7 % [facility] Monocytes/100 leukocytes in Blood by Automated count 7 % [facility] Eosinophils/100 leukocytes in Blood by Automated count 5 % [facility] Basophils/100 leukocytes in Blood by Automated count 1 % [facility] Neutrophils [#/volume] in Blood by Automated count 7.22 10*3/uL 1.8-7 .0 H [facility] Lymphocytes [#/volume] in Blood by Automated count 0.66 10*3/uL 1.2-4 .0 L [facility] Monocytes [#/volume] in Blood by Automated count 0.64 10*3/uL 0-0.8 [facility] Eosinophils [#/volume] in Blood by Automated count 0.42 10*3/uL 0-0.5 [facility] Basophils [#/volume] in Blood by Automated count 0.08 10*3/uL 0-0.2 [facility] Nucleated erythrocytes/100 leukocytes [Ratio] in Blood by Automated count 0 /100{WBCs} 0-0 [facility] ID Date Data Source [id number] 07/19/2020 11:53:43 AM EDT [facility] Name Value Range Interpretation Code Description Data Neva rce(s) Supporting Document(s) Albumin [Mass/volume] in Serum or Plasma by Bromocresol green (BCG) dye binding method 4.2 g/dL 3.5-5.2 [facility] Bilirubin.total [Mass/volume] in Serum or Plasma 0.5 mg/dL <1.2 [facility] Calcium [Mass/volume] in Serum or Plasma 9.1 mg/dL 8.8-10.2 [facility] Chloride [Moles/volume] in Serum or Plasma 96 mmol/L 98-107 L [facility] Creatinine [Mass/volume] in Serum or Plasma 0.85 mg/dL 0.70-1.20 [facility] Glucose [Mass/volume] in Serum or Plasma 227 mg/dL 70-140 H [facility] Alkaline phosphatase [Enzymatic activity/volume] in Serum or Plasma 86 U/L 40-129 [facility] Potassium [Moles/volume] in Serum or Plasma 3.7 mmol/L 3.4-5.1 [facility] Protein [Mass/volume] in Serum or Plasma 6.7 g/dL 6.4-8.3 [facility] Sodium [Moles/volume] in Serum or Plasma 128 mmol/L 136-145 L [facility] Aspartate aminotransferase [Enzymatic activity/volume] in Serum or Plasma 15 U/L <40 [facility] Urea nitrogen [Mass/volume] in Serum or Plasma 8 mg/dL 8-23 [facility] Osmolality of Serum or Plasma by calculation 271 mosm/kg 275-300 L [facility] Creatinine/Urea nitrogen [Mass Ratio] in Serum or Plasma 9 [facility] Bicarbonate [Moles/volume] in Serum 23 mmol/L 22-29 [facility] Alanine aminotransferase [Enzymatic activity/volume] in Seru m or Plasma 9 U/L <41 [facility] Anion gap 3 in Serum or Plasma 9 mmol/L 8-15 [facility] Glomerular filtration rate/1.73 sq M pre dicted among non-blacks [Volume Rate/Area] in Serum or Plasma by Creatinine-based formula (MDRD) >6 0 [facility] Glomerular filtration rate/1.73 sq M pre dicted among blacks [Volume Rate/Area] in Serum or Plasma by Creatinine-based formula (MDRD) >60 [facility] ID Date Data Source [id number] 07/19/2020 11:53:43 AM EDT [facility] Name Value Range Interpretation Code Description Data Neva rce(s) Supporting Document(s) Thyrotropin [Units/volume] in Serum or Plasma 5.550 u[IU]/mL 0.270-4. 200 H [facility] ID Date Data Source [id number] 07/11/2020 04:47:56 PM EDT [facility] CT THORAX WITH CONTRAST [id number] RESUL TInterpreted by:Helene Durham MDINDICATION: History of lung cancer, to reassess disease. 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 Patient also has a more remote history of esophageal cancer, status post neoadjuvant chemotherapy and radiation, with esophagectomy in 2018. Patient also has a history of stage I adenocarcinoma status post SBRT in 2008.TECHNIQUE: Multidetector row helical CT of the chest following IV contrast administration was performed. Coronal and sagittal reformations were obtained. Automated dose lowering techniques and/or adjustment according to patient size were utilized for this exam.COMPARISON: CT thorax 03/26/2020, 09/12/2019 and 08/19/2018.FINDINGS: Chest wall and lower neck: A left-sided port catheter is in place, tip is within the distal SVC.Mediastinum and keaton: Redemonstration of multiple prominent mediastinal lymph nodes at multiple stations, largest of which measures 1.1 cm by short axis located within the left lower paratracheal station. No hilar lymphadenopathy is identified.Postsurgical changes from prior esophagectomy are again noted. There is patulous dilation and air-fluid levels seen within the visualized portions of the stomach, which is pulled through into the mediastinum. These findings appear unchanged as compared to prior examination.Heart and pericardium: Heart size is normal. There is no pericardial disease.Vessels: There are atherosclerotic calcifications within the coronary arteries and thoracic aorta. No aortic aneurysm is identified. The main pulmonary artery is not enlarged.Pleura: There are a few areas of focal pleural thickening along the right costal pleura, unchanged from prior examination. No pleural effusion is identified.Upper abdomen: Please refer to CT abdomen and pelvis dated the same for findings below the diaphragm.Lungs and large airways: The central airways are patent.* No significant change in the multiple nodular opacities throughout the right lung, the majority of which are pleural-based. As a reference the nodular opacity within the right lower lobe measures 1.6 x 1.0 cm (image 137 of 250).* No significant change in the nodular opacity seen within left lower lobe (image 125).* No significant change in the fine reticulation, groundglass opacities and mild bronchiectasis noted within the right middle and lower lobes. To a lesser degree these findings are seen in the periphery of the lingula and left lower lobe. These findings are unchanged from prior examination and most consistent with mild fibrosis on the left and moderate amount of fibrosis on the right.* A mixed groundglass and solid opacity within the left upper lobe is overall unchanged in size as compared to the prior examinations measuring up to 1.7 cm. The nodular solid component was not seen on examinations dated in 2019 and 2018 and has slightly increased in size from the 03/26/2020 scan, now measuring 0.3cm previously measuring 0.2cm (image 112).Bones: Redemonstration of irregular lucency and sclerosis within the T2 spinous process, most consistent with prior metastatic lesion. There are degenerative changes throughout the thoracic spine. Bony bridging of the posterior aspects of the right sixth and seventh ribs are noted. A nonunion fracture within the posterior aspect of the right ninth rib is also seen.IMPRESSION:1. A mixed solid and groundglass opacity within the left upper lobe has a solid nodular component which has been increasing in size of the past 2 years. These findings are concerning for primary lung malignancy such as adenocarcinoma.2. Stable predominantly pleural-based opacities throughout both lungs are noted.3. Stable lymphadenopathy within the mediastinum. No significant lymphadenopathy within either hilar is identified.4. No significant change in the irregular lucency and sclerosis within the T2 to the spinous processThis document has been electronically signed by SHELBI Druham on 07/11/2020 4:45 PM Name Value Range Interpretation Code Description Data Neva rce(s) Supporting Document(s) ID Date Data Source [id number] 07/11/2020 10:51:19 AM [facility] CT ABDOMEN PELVIS WITH CONTRAST [id number] AL RESULTInterpreted by:Karmen Solorio MDINDICATION: hx of lung cancer to reassess disease. TECHNIQUE: Serial axial images of the abdomen and pelvis were obtained. 100cc of Omnipaque 300 intravenous contrast was administered. Oral dilute Omnipaque solution was given. Coronal and sagittal reformations were also obtained. Automated dose lowering techniques and/or adjustment according to patient size were utilized for this examCOMPARISON: 03/26/2020. CT dated 12/19/2008.FINDINGS: Evaluation of bowel and mesentery is suboptimal due lack of oral contrast. Emphysematous changes are present in the lungs. Interstitial prominence is present at the lung bases consistent with chronic lung changes. There is some honeycombing at the lung bases in the peripheral distribution.The heart size is within normal limits. There are no pleural or pericardial effusions.For details above the diaphragm please see CT of the thorax dated the same. The patient is status post gastric pull-through with fluid level within the pull-up. Mild enhancement is present in the wall of the pull-up of uncertain significance. It may be inflammatory in nature. This was present on the previous study and is not significantly changed. There is a focal area of increased thickening at the level of the hiatus which was present on the previous study and cannot exclude underlying lesion but it is likely inflammatory in nature given the chronicity since 2008.There is mild intrahepatic biliary duct dilatation. No focal hepatic masses are demonstrated. This was present on the previous study. The common bile duct is dilated measuring 10 mm. This has increased since the previous study where it measured 7 mm. Cannot exclude filling defects within the common bile duct and further evaluation with an MRCP is suggested as clinically indicated.The spleen, right adrenal gland and right kidney are within normal limits. There is cholelithiasis again seen and mild gallbladder wall thickening. This can be correlated with an ultrasound as clinically indicated. It was present on the previous study and is not significantly changed.The pancreatic head is poorly defined. In this may be technical in nature. No pancreatic ductal dilatation is present.There is mild thickening of the left adrenal gland.Too small to characterize low densities are present in the lower pole of the left kidney.Both kidneys enhance symmetrically and there is symmetric function and excretion. No filling defects are noted within the collecting system or the visualized portions of the ureters.Evaluation of the bowel loops demonstrate the patient to be status post gastric pull-up as described above. There is a fluid level within the gastric pull-up and there is enhancement within the wall as was previously described. This was present on the previous study and etiologies uncertain. It is not significantly changed.The unopacified small bowel loops are unremarkable.Retained stool is present in the colon which limits its evaluation for masses. Diverticulosis is noted in the left colon without evidence of acute diverticulitis.Evaluation of the pelvis demonstrates urinary bladder to be distended but is otherwise unremarkable. The prostate is mildly prominent and projects into the base of the urinary bladder. It measures approximately 4.1 x 5.2 x 4.9 cm. The right greater than left hydrocele is present. There is a small right hydrocele extending into the right inguinal canal.Atherosclerotic changes are present in the abdominal aorta and branch vessels without evidence of an aneurysm or dissection.There is vague ill-defined density in the portacaval space measuring 3.8 x 1.8 cm. It is inseparable from the uncinate process of the pancreas and pancreatic head. It may represent a lymph node. The pancreatic head is suboptimally visualized and could be further evaluated the time of an MRCP.There is a stable calcified mass at the level of the transverse colon measuring 2.5 x 4.1 x 4.5 cm. It is not significantly changed since the most re cent previous study. A similar finding is present at the superior pole of the spleen measuring 2.6 x 1.6 cm. These most likely represent areas of fat necrosis more than treated disease. There were previously demonstrated locules of an inflammatory fat in these regions on the previous CT scan dated 12/19/2008 which has likely subsequently become these calcified lesions.Evaluation of the bony structures demonstrates degenerative changes in the lumbosacral spine associated disc space narrowing at L1-L2 to L4-L5. There is diffuse osteopenia. Lucencies are present throughout the bones especially within the pelvis and proximal femurs, and clinical correlation is recommended to exclude osteopenia versus multiple myeloma or metastatic disease. An MRI may also be of value. These findings are not significantly changed compared to the most recent previous study but are new compared to the previous study dated 12/19/2008. There is a stable sclerotic lesion noted in the sacrum and this was present on the previous study dated 12/19/2008. It is most consistent with a bone island.IMPRESSION:No definite evidence of progression of malignancy on the current study.There is mild intrahepatic biliary duct prominence and increasing size of the common bile duct. Cannot exclude filling defects within the common bile duct and correlation with an MRCP is suggested as clinically indicated. The liver is otherwise unchanged compared to the most recent previous study.Cholelithiasis and mild gallbladder wall thickening and enhancement. This is unchanged since the previous study. It could be further evaluated at the time of an MRCP or an ultrasound.Calcifications in the region of the omentum and adjacent to the upper pole of the spleen. This is most suggestive of old fat necrosis more than treated disease and this was present on the previous study dated 12/19/2008 but has since become calcified.Status post gastric pull-up with fluid level within it. It is associated with mild rim enhancement and thickening which is was present on the previous CT scan. In addition there is a focal area of thickening at the level of the hiatus and this should be further evaluated to exclude an underlying lesion or inflammation.. It is likely inflammatory in nature since it was present on the previous CT scan since 12/19/2008 and was also seen on the most recent CT scan dated 03/26/2020.Diverticulosis without evidence of acute diverticulitis.Diffuse osteopenia and mottled appearance of the pelvic bones and proximal femur with multiple areas of lucencies throughout the bones. This could be related to diffuse osteopenia but cannot exclude multiple myeloma or metastatic disease. Recommend correlation with an MRI and clinical findings. This is present on the most recent previous study.Other chronic findings as described above.This document has been electronically signed by Karmen Solorio MD on 07/11/2020 10:49 AM Name Value Range Interpretation Code Description Data Neva rce(s) Supporting Document(s) ID Date Data Source [id number] 06/24/2020 12:09:13 PM [facility] Name Value Range Interpretation Code Description Data [facility]) Progress Note [facility] [id number]/[id number]O4MXaIVgRrMdVhJON6 [facility] [file] ICAgICAgICAgICAgICAgICAgICAgICAgICAgICAgICAgICAgICAgICAgICAgICAgICAgICAgICAgICAg ICAgICAgICAgICAgICAgICAgICAgICAgICAgICAgDQogICAgICAgICAgICAgICAgICAgICAgICAgICAg ICAgICAgICAgICAgICAgICAgICAgICAgICAgICAgIC AgICAgICAgICAgICAgICAgICAgICAgICAgICAgICAgICAgICAgICAgDQogICAgICAgICAgICAgICAgIC AgICAgICAgICAgICAgICAgICAgICAgICAgICAgICAgICAgICAgICAgICAgICAgICAgICAgICAgICAgIC AgICAgICAgICAgICAgICAgICAgICAgDQogICAgICAg ICAgICAgICAgICAgICAgICAgICAgICAgICAgICAgICAgICAgICAgICAgICAgICAgICAgICAgICAgICAg ICAgICAgICAgICAgICAgICAgICAgICAgICAgICAgICAgDQogICAgICAgICAgICAgICAgICAgICAgICAg ICAgICAgICAgICAgICAgICAgICAgICAgICAgICAgIC AgICAgICAgICAgICAgICAgICAgICAgICAgICAgICAgICAgICAgICAgICAgDQogICAgICAgICAgICAgIC AgICAgICAgICAgICAgICAgICAgICAgICAgICAgICAgICAgICAgICAgICAgICAgICAgICAgICAgICAgIC AgICAgICAgICAgICAgICAgICAgICAgICAgDQogICAg ICAgICAgICAgICAgICAgICAgICAgICAgICAgICAgICAgICAgICAgICAgICAgICAgICAgICAgICAgICAg ICAgICAgICAgICAgICAgICAgICAgICAgICAgICAgICAgICAgDQogICAgICAgICAgICAgICAgICAgICAg ICAgICAgICAgICAgICAgICAgICAgICAgICAgICAgIC AgICAgICAgICAgICAgICAgICAgICAgICAgICAgICAgICAgICAgICAgICAgICAgDQogICAgICAgICAgIC AgICAgICAgICAgICAgICAgICAgICAgICAgICAgICAgICAgICAgICAgICAgICAgICAgICAgICAgICAgIC AgICAgICAgICAgICAgICAgICAgICAgICAgICAgDQog ICAgICAgICAgICAgICAgICAgICAgICAgICAgICAgICAgICAgICAgICAgICAgICAgICAgICAgICAgICAg UZBvYLRlRKTdHBLySNZjXDFyRXEqURFfPJTcMZFtRDDyLKMjLERbZOh9L9hqDCHsATRmHL2mGAv4Qx7+ HNfERrUtCPC8taHuaK4NOG1lm7OpVWniPXUst6VeXO q8LI4STJAhMXklMU3URKzerp4XUGGuGKHswGAMz9kbKhCcRCN6CZOuNhmwQA2VTXVmV2tsowJwUCUbBZ HQGQxsKDNJKGPyZFLfMfPmEcHtFHRvBCChYBJMHUN7CXAtMbRmGGDfEPNsCxWlDSFCWZ2AUxOxV3HoyO 76FAmISt8+JTbybtZdEbbUOnX1SRNhp8HtNCz6VS0M GPXpCwhfk0SuRnyzYCBJQMeiUR8PRSQ2ZIP1LRQySe2XWMMnY428xmUgQX9RNb6YGjDlWC5pdk8FRskx XWQaLnyVRcd3OLrpNA6TcTEmOQoBbe6wjzQlloYBf2SwndPdbCACWyLyxNayRRQrYLncBiF6RYPEIPPj iWN3UvGwOxFyGIPhNRycNSCBWPzQUzAsL4Wvw3PeFp J4OEFtXgQvDLamKDJcWmB2YV40fTqvNY0LVQGtEBEpJK79FAW1PVSpEm5UGl8JRcYvKS3gxt5IDjGoWA 7qse5KPJtOBfFtF3A8jAHxP5Whtt55SG6DfJB8tAGcXC8LgJ9jYW8Uq4UmXUXnKcTiODMsLFHgZETjZH XwZkAkMY9WHDWmAhBfdEQrEQNiKOstOPRuQfG5NqGa KJ4YRHZyYIO5UV0UQD9WDvwcL8QESWytdCwdBdGPYCK/GLALZKORXKomQQKeG95OJ0ZOCYjMNnupDNjE PhguLo4nXMq+Cf8MUK2wt7NuHQcfEJZcOY3lqp7AUElOPoFhJ2I6fHXoY1E9BOmfZk3NXRZpROBxMsTd RVZTAQrcUF5PBO6mwhE1TF3LlZEuUMBnPLBzcJCuJJ e9O12pwFRkVNunTD5DUXM+Delbert+Yh6IWVFoUUQqSGNcRdQkQGDNBpAoI2DtL4LFm2BsL1RdGY89eEdayq RnTOnfYQ3RWX7hPNMyKNIUUT0EeEXfnV6zmtSpHsMyFWRSTsUgU96uqBOaNCPrUVU9RXFdVx1MHSRdN7 OhcfOslXivhxNcZDOjVJSJGG7FLYgbnbBjfMWjaOtr VP27sCyuUZ5EEk0QDmVvPZ6lwe8MxOLoQf9BEQZ8QO6NIBGdNPClINUmXUA4BNSpEuEkCAzkPDZnAURd TKD4KSWvLNIfER0AIoDbRZTuEHFfPoYcOQYiFTOwlz2LDPUeZXT8RtpeWHBxLXLhPFDgDTzuYLDlDKYf HHA1JJThSWNoWB5QBnOxKLGpOFJ8QKZkPQJaBHFpav 4MHFWhBOY0SqC2UnLcMIDqWQAiQHyqJYFtRTBjLkIoFMCpOPGoRZ5SHkMxQFCfCSf5MiawHPHiOWBfbt 6GVHLtAGKtAHPrMJOzJYZbQMMkYXuvWUMkHAQsMTA3JEYqYFAxFE4DTlSyXVFwLXJxHdEpJOWgVFIbhl 6XMRGtAAMbMTUhJJUjNWXoIGVfAEtlLWMyMSV1PTTs ACNmZMQeSQ6TWnRvJVFzCZruFFBtIXEqXHXzds4DZYUbJUCxATI3JmRtLZKhYQRcHQqxRZAaUNUsDAMf GQOaMCKyKE4KNlQyGTJdLoF1JKxkNXRaDHIlzl5PZJNoRHKiFqO1AZAzLCNlWRPoZOrqREVgQOM2TCd3 OIUoJXFzOX2HLzBsYQNiYik8GZWrGFPgREZbpo0YCW ToZWDcKCL1USJeTYOkMDCkYNmiJXTpHHE3BnN8SBHvNWEhVP5QHuWgLBNqHeo1BIHiOPVlKKFxtl1GWX LmWUGgHUDmHZJjXHDfSOJoVLyiBNYcHXXmKAg2EKEmAJLnYJ2OEeLgJFPeBcSkQBOtCJWeROXsve1ISX VuHNCzGND3BZAqTBFxXXDdJZyeJKXzTFRjTRY0YEXj MROoPF2FMnTtAVDmVNCeGeZqEGSuKQYmcl4WVHXaSPA9PwF8FrPySXCiXKEqWIzrGXChNSQoKKldYZOv IHLjFE5FEgGnIHTcPAC3VfwxZBUrGQQges2YTUMfOQT8BBA4EcQsRXExDBJaJDgbIQRgDGL1FRelCVYf WXHrCL1JIrUpIIHjSMItXGtoONGuKANalv5YZHLcBZ N0JUC9QMEjSKVdEROxBEixBSQgYTD3TVHxZOOgRQBhSO5ZItRyBWGuBXrcHmMlJXQhIRDxpe7TEWAtRD E6YyN7PWGcINOrAMAyCNv4cgLkfROcQJg6YO1DN8QstmLqJZGFRr9Rr587EMV2RZKdMx2WA9gsMe5hIH XjWQMBNa1UTEl8TiI5QBWgPOT7TmOiTYS3Lbc6WFVd UZU7K3UuKxc7JWM+VFmwSqdpP4GaBHlbXrTlQAHhZElgYLGqSITqTkFaFiEoOE1uSZMZVd2+DQpzdGFy rUvxBODOOpH8ICucOHjcTZDTUj4M ID Date Data Source [id number] 06/21/2020 12:45:48 PM T [facility] Name Value Range Interpretation Code Description Data Neva rce(s) Supporting Document(s) Leukocytes [#/volume] in Blood by Automated count 7.8 10*3/uL 4-10 [facility] Erythrocytes [#/volume] in Blood by Automated count 4.12 10*6/uL 4.6- 6.1 L [facility] Hemoglobin [Mass/volume] in Blood 13.3 g/dL 13.5-18 L [facility] Hematocrit [Volume Fraction] of Blood by Automated count 37.6 % 4 1-53 L [facility] Erythrocyte mean corpuscular volume [Entitic volume] by Auto mated count 91.2 fL 80-96 [facility] Erythrocyte mean corpuscular hemoglobin [Entitic mass] by Automated count 32.3 pg 27-33 [facility] Erythrocyte mean corpuscular hemoglobin concentration [Mass/volume] by Automated count 35.4 g/dL 32.0-36.0 [facility] Erythrocyte distribution width [Ratio] by Automated count 13.6 % 11.5-14.5 [facility] Platelets [#/volume] in Blood by Automated count 242 10*3/uL 150-400 [facility] Differential cell count method - Blood [facility] Neutrophils/100 leukocytes in Blood by Automated count 71 % [facility] Lymphocytes/100 leukocytes in Blood by Automated count 10 % [facility] Monocytes/100 leukocytes in Blood by Automated count 10 % [facility] Eosinophils/100 leukocytes in Blood by Automated count 8 % [facility] Basophils/100 leukocytes in Blood by Automated count 1 % [facility] Neutrophils [#/volume] in Blood by Automated count 5.59 10*3/uL 1.8-7 .0 [facility] Lymphocytes [#/volume] in Blood by Automated count 0.77 10*3/uL 1.2-4 .0 L [facility] Monocytes [#/volume] in Blood by Automated count 0.78 10*3/uL 0-0.8 [facility] Eosinophils [#/volume] in Blood by Automated count 0.62 10*3/uL 0-0.5 H [facility] Basophils [#/volume] in Blood by Automated count 0.07 10*3/uL 0-0.2 [facility] Nucleated erythrocytes/100 leukocytes [Ratio] in Blood by Automated count 0 /100{WBCs} 0-0 [facility] ID Date Data Source [id number] 06/21/2020 01:43:37 PM EDT [facility] Name Value Range Interpretation Code Description Data Neva rce(s) Supporting Document(s) Albumin [Mass/volume] in Serum or Plasma by Bromocresol green (BCG) dye binding method 4.3 g/dL 3.5-5.2 [facility] al Bilirubin.total [Mass/volume] in Serum or Plasma 0.5 mg/dL <1.2 [facility] Calcium [Mass/volume] in Serum or Plasma 9.1 mg/dL 8.8-10.2 [facility] Chloride [Moles/volume] in Serum or Plasma 99 mmol/L 98-107 [facility] Creatinine [Mass/volume] in Serum or Plasma 0.74 mg/dL 0.70-1.20 [facility] Glucose [Mass/volume] in Serum or Plasma 134 mg/dL 70-140 [facility] Alkaline phosphatase [Enzymatic activity/volume] in Serum or Plasma 82 U/L 40-129 [facility] Potassium [Moles/volume] in Serum or Plasma 3.8 mmol/L 3.4-5.1 [facility] Protein [Mass/volume] in Serum or Plasma 7.0 g/dL 6.4-8.3 [facility] Sodium [Moles/volume] in Serum or Plasma 136 mmol/L 136-145 [facility] Aspartate aminotransferase [Enzymatic activity/volume] in Serum or Plasma 16 U/L <40 [facility] Urea nitrogen [Mass/volume] in Serum or Plasma 11 mg/dL 8-23 [facility] Osmolality of Serum or Plasma by calculation 283 mosm/kg 275-300 [facility] Creatinine/Urea nitrogen [Mass Ratio] in Serum or Plasma 14 [facility] Bicarbonate [Moles/volume] in Serum 26 mmol/L 22-29 [facility] Alanine aminotransferase [Enzymatic activity/volume] in Seru m or Plasma 10 U/L <41 [facility] Anion gap 3 in Serum or Plasma 11 mmol/L 8-15 [facility] Glomerular filtration rate/1.73 sq M pre dicted among non-blacks [Volume Rate/Area] in Serum or Plasma by Creatinine-based formula (MDRD) >6 0 [facility] Glomerular filtration rate/1.73 sq M pre dicted among blacks [Volume Rate/Area] in Serum or Plasma by Creatinine-based formula (MDRD) >60 [facility] ID Date Data Source [id number] 06/21/2020 02:00:17 PM EDT [facility] Name Value Range Interpretation Code Description Data Neva rce(s) Supporting Document(s) Thyrotropin [Units/volume] in Serum or Plasma 2.430 u[IU]/mL 0.270-4. 200 [facility] ID Date Data Source [id number] 06/05/2020 09:42:00 AM EDT [facility]) Name Value Range Interpretation Code Description Data Neva rce(s) Supporting Document(s) Color of Urine Laboratory test result [facility] ([facility]) Spec [place] 1.000 [facility] ([facility]) Appearance of Urine Laboratory test result [facility] ([facility]) pH of Urine by Test strip 7 [facility] NT ([facility]) Nitrate [Presence] in Urine Laboratory test result [facility] ([facility]) Leukocytes Laboratory test result [facility] ([facility]) Ketones [Presence] in Urine by Test strip Laboratory test result [facility] ([facility]) Inhouse Glucose Laboratory test result [facility] ([facility]) Protein [Presence] in Urine by Test strip Laboratory test result [facility] ([facility]) Bilirubin.total [Presence] in Urine by Test strip Laboratory test res ult [facility] ([facility]) Blood type and Indirect antibody screen panel - Blood Laboratory test result [facility] ([facility]) Urobilinogen Laboratory test result [facility] ([facility]) ID Date Data Source [id number] 06/01/2020 08:48:54 AM T [facility] Name Value Range Interpretation Code Description Data Neva rce(s) Supporting Document(s) Progress Note [facility] [id number] lbm [file] [id number] ID Date Data Source [id number] 05/31/2020 01:42:27 PM [facility] Name Value Range Interpretation Code Description Data Neva rce(s) Supporting Document(s) Glucose [Mass/volume] in Capillary blood by Glucometer 83 mg/dL 70- 140 [facility] ID Date Data Source [id number] 05/31/2020 01:42:27 PM [facility] Value Range Interpretation Code Description Data Neva rce(s) Supporting Document(s) Glucose [Mass/volume] in Capillary blood by Glucometer 72 mg/dL 70- 140 [facility] ID Date Data Source [id number] 05/31/2020 12:32:01 PM [facility] Value Range Interpretation Code Description Data Neva rce(s) Supporting Document(s) Leukocytes [#/volume] in Blood by Automated count 9.3 10*3/uL 4-10 [facility] Erythrocytes [#/volume] in Blood by Automated count 3.92 10*6/uL 4.6- 6.1 L [facility] Hemoglobin [Mass/volume] in Blood 12.6 g/dL 13.5-18 L [facility] Hematocrit [Volume Fraction] of Blood by Automated count 36.3 % 4 1-53 L [facility] Erythrocyte mean corpuscular volume [Entitic volume] by Auto mated count 92.7 fL 80-96 [facility] Erythrocyte mean corpuscular hemoglobin [Entitic mass] by Automated count 32.2 pg 27-33 [facility] Erythrocyte mean corpuscular hemoglobin concentration [Mass/volume] by Automated count 34.8 g/dL 32.0-36.0 [facility] Erythrocyte distribution width [Ratio] by Automated count 13.4 % 11.5-14.5 [facility] Platelets [#/volume] in Blood by Automated count 217 10*3/uL 150-400 [facility] Differential cell count method - Blood [facility] Neutrophils/100 leukocytes in Blood by Automated count 77 % [facility] Lymphocytes/100 leukocytes in Blood by Automated count 7 % [facility] Monocytes/100 leukocytes in Blood by Automated count 10 % [facility] Eosinophils/100 leukocytes in Blood by Automated count 5 % [facility] Basophils/100 leukocytes in Blood by Automated count 1 % [facility] Neutrophils [#/volume] in Blood by Automated count 7.17 10*3/uL 1.8-7 .0 H [facility] Lymphocytes [#/volume] in Blood by Automated count 0.65 10*3/uL 1.2-4 .0 L [facility] Monocytes [#/volume] in Blood by Automated count 0.95 10*3/uL 0-0.8 H [facility] Eosinophils [#/volume] in Blood by Automated count 0.44 10*3/uL 0-0.5 [facility] Basophils [#/volume] in Blood by Automated count 0.07 10*3/uL 0-0.2 [facility] Nucleated erythrocytes/100 leukocytes [Ratio] in Blood by Automated count 0 /100{WBCs} 0-0 [facility] ID Date Data Source [id number] 05/31/2020 01:08:05 PM [facility] Name Value Range Interpretation Code Description Data Neav rce(s) Supporting Document(s) Albumin [Mass/volume] in Serum or Plasma by Bromocresol green (BCG) dye binding method 4.1 g/dL 3.5-5.2 [facility] Bilirubin.total [Mass/volume] in Serum or Plasma 0.4 mg/dL <1.2 [facility] Calcium [Mass/volume] in Serum or Plasma 8.7 mg/dL 8.8-10.2 L [facility] Chloride [Moles/volume] in Serum or Plasma 96 mmol/L 98-107 L [facility] Creatinine [Mass/volume] in Serum or Plasma 0.68 mg/dL 0.70-1.20 L [facility] Glucose [Mass/volume] in Serum or Plasma 67 mg/dL 70-140 L [facility] Alkaline phosphatase [Enzymatic activity/volume] in Serum or Plasma 81 U/L 40-129 [facility] Potassium [Moles/volume] in Serum or Plasma 3.7 mmol/L 3.4-5.1 [facility] Protein [Mass/volume] in Serum or Plasma 6.5 g/dL 6.4-8.3 [facility] Sodium [Moles/volume] in Serum or Plasma 133 mmol/L 136-145 L [facility] Aspartate aminotransferase [Enzymatic activity/volume] in Serum or Plasma 17 U/L <40 [facility] Urea nitrogen [Mass/volume] in Serum or Plasma 11 mg/dL 8-23 [facility] Osmolality of Serum or Plasma by calculation 274 mosm/kg 275-300 L [facility] Creatinine/Urea nitrogen [Mass Ratio] in Serum or Plasma 16 [facility] Bicarbonate [Moles/volume] in Serum 29 mmol/L 22-29 [facility] Alanine aminotransferase [Enzymatic activity/volume] in Seru m or Plasma 12 U/L <41 [facility] Anion gap 3 in Serum or Plasma 8 mmol/L 8-15 [facility] Glomerular filtration rate/1.73 sq M pre dicted among non-blacks [Volume Rate/Area] in Serum or Plasma by Creatinine-based formula (MDRD) >6 0 [facility] Glomerular filtration rate/1.73 sq M pre dicted among blacks [Volume Rate/Area] in Serum or Plasma by Creatinine-based formula (MDRD) >60 [facility] ID Date Data Source [id number] 05/31/2020 01:08:05 PM EDT [facility] Name Value Range Interpretation Code Description Data Neva rce(s) Supporting Document(s) Thyrotropin [Units/volume] in Serum or Plasma 3.330 u[IU]/mL 0.270-4. 200 [facility] ID Date Data Source [id number] 05/11/2020 02:41:00 [place] [address] OPERATIVE SUMMARYNAME: JOSE ALBERTO Valencia DATE OF : 1935TTENDING PHYS: JOE BAIRD MD DATE: 05/11/20 MR#: [id number] OF PROCEDURE: 05/11/2020PREOPERATIVE DIAGNOSIS:1. Urinary retention.2. Incomplete bladder emptying.POST-OPERATIVE DIAGNOSIS:1. Urinary retention.2. Incomplete bladder emptying.PROCEDURE PERFORMED:Flexible diagnostic cystoscopy.ATTENDING SURGEON: Dr. Joe Baird.PHYSICIAN CLIENT EXPERIENCE CONSULTANT: ESPERANZA Leon.ANESTHESIA: Local.ESTIMATED BLOOD LOSS: Minimal.COMPLICATIONS: None.DRAINS: None.DISPOSITION: To the Ambulatory Surgical Unit.CONDITION: Stable.INTRAOPERATIVE FINDINGS:Severely trabeculated urinary bladder, bilobar obstruction (kissing) lateral lobes of the prostate.INDICATIONS FOR PROCEDURE:Antonio Abrams is an 85-year-old gentleman previously seen and evaluated with outlet obstruction.He had a post-void residual of 530, and has been having increasing difficulty urinating. Hepresented today for a cystoscopy to evaluate the cause of his obstruction.DETAILS OF PROCEDURE: [address] [place] [address] OPERATIVE SUMMARYNAME: JOSE ALBERTO Valencia DATE OF : 1935TTENDING PHYS: JOE BAIRD MD DATE: 05/11/20 MR#: [id number] a detailed informed consent was obtained from the patient, he was wheeled into the operatingroom and installed on the operating table in the supine position. The penoscrotal area was thencleaned, prepped, and draped in the usual sterile fashion. After the proper time out procedures werecarried out, local anesthesia was then in filtrated into the urethra. Flexible cystoscopy was thenperformed. The findings were as noted above. No other intravesicular tumors or masses were noted.Upon completion, the bladder was then emptied and the cystoscope was withdrawn. The patientwas then transferred back onto a stretcher, on which he was transferred to the Ambulatory SurgicalUnit in a stable condition. The operation was well tolerated, and there were no complications.The patient is going to be seen in two weeks and options of transurethral resection of the prostateand yearly prostate treatment system will be discussed with the patient.Copies of this report to Dr. Nancy Ford.DD: JOE BAIRD MD 05/11/20 13:46DT: DMITRY 05/11/20 14:34DS: JOE BAIRD MD 05/15/20 18:01 2 Name Value Range Interpretation Code Description Data Neva rce(s) Supporting Document(s) ID Date Data Source [id number] 05/11/2020 08:39:46 AM EDT [facility] Name Value Range Interpretation Code Description Data Neva rce(s) Supporting Document(s) Progress Note [facility] [id number] lbm [file] [id number]= ID Date Data Source [id number] 05/10/2020 12:23:56 PM [facility] Name Value Range Interpretation Code Description Data Neva rce(s) Supporting Document(s) Leukocytes [#/volume] in Blood by Automated count 8.0 10*3/uL 4-10 [facility] Erythrocytes [#/volume] in Blood by Automated count 4.36 10*6/uL 4.6- 6.1 L [facility] Hemoglobin [Mass/volume] in Blood 13.9 g/dL 13.5-18 [facility] Hematocrit [Volume Fraction] of Blood by Automated count 40.1 % 4 1-53 L [facility] Erythrocyte mean corpuscular volume [Entitic volume] by Auto mated count 91.9 fL 80-96 [facility] Erythrocyte mean corpuscular hemoglobin [Entitic mass] by Automated count 31.9 pg 27-33 [facility] Erythrocyte mean corpuscular hemoglobin concentration [Mass/volume] by Automated count 34.7 g/dL 32.0-36.0 [facility] Erythrocyte distribution width [Ratio] by Automated count 14.0 % 11.5-14.5 [facility] Platelets [#/volume] in Blood by Automated count 251 10*3/uL 150-400 [facility] Differential cell count method - Blood [facility] Neutrophils/100 leukocytes in Blood by Automated count 74 % [facility] Lymphocytes/100 leukocytes in Blood by Automated count 9 % [facility] Monocytes/100 leukocytes in Blood by Automated count 12 % [facility] Eosinophils/100 leukocytes in Blood by Automated count 4 % [facility] Basophils/100 leukocytes in Blood by Automated count 1 % [facility] Neutrophils [#/volume] in Blood by Automated count 5.93 10*3/uL 1.8-7 .0 [facility] Lymphocytes [#/volume] in Blood by Automated count 0.69 10*3/uL 1.2-4 .0 L [facility] Monocytes [#/volume] in Blood by Automated count 0.91 10*3/uL 0-0.8 H [facility] Eosinophils [#/volume] in Blood by Automated count 0.35 10*3/uL 0-0.5 [facility] Basophils [#/volume] in Blood by Automated count 0.09 10*3/uL 0-0.2 [facility] Nucleated erythrocytes/100 leukocytes [Ratio] in Blood by Automated count 0 /100{WBCs} 0-0 [facility] ID Date Data Source [id number] 05/10/2020 01:00:04 PM EDT [facility] Name Value Range Interpretation Code Description Data Neva rce(s) Supporting Document(s) Albumin [Mass/volume] in Serum or Plasma by Bromocresol green (BCG) dye binding method 4.2 g/dL 3.5-5.2 [facility] Bilirubin.total [Mass/volume] in Serum or Plasma 0.4 mg/dL <1.2 [facility] Calcium [Mass/volume] in Serum or Plasma 9.2 mg/dL 8.8-10.2 [facility] Chloride [Moles/volume] in Serum or Plasma 98 mmol/L 98-107 [facility] Creatinine [Mass/volume] in Serum or Plasma 0.79 mg/dL 0.70-1.20 [facility] Glucose [Mass/volume] in Serum or Plasma 105 mg/dL 70-140 [facility] Alkaline phosphatase [Enzymatic activity/volume] in Serum or Plasma 87 U/L 40-129 [facility] Potassium [Moles/volume] in Serum or Plasma 3.8 mmol/L 3.4-5.1 [facility] Protein [Mass/volume] in Serum or Plasma 6.9 g/dL 6.4-8.3 [facility] Sodium [Moles/volume] in Serum or Plasma 132 mmol/L 136-145 L [facility] Aspartate aminotransferase [Enzymatic activity/volume] in Serum or Plasma 17 U/L <40 [facility] Urea nitrogen [Mass/volume] in Serum or Plasma 10 mg/dL 8-23 [facility] Osmolality of Serum or Plasma by calculation 272 mosm/kg 275-300 L [facility] Creatinine/Urea nitrogen [Mass Ratio] in Serum or Plasma 12 [facility] Bicarbonate [Moles/volume] in Serum 27 mmol/L 22-29 [facility] Alanine aminotransferase [Enzymatic activity/volume] in Seru m or Plasma 10 U/L <41 [facility] Anion gap 3 in Serum or Plasma 7 mmol/L 8-15 L [facility] Glomerular filtration rate/1.73 sq M pre dicted among non-blacks [Volume Rate/Area] in Serum or Plasma by Creatinine-based formula (MDRD) >6 0 [facility] Glomerular filtration rate/1.73 sq M pre dicted among blacks [Volume Rate/Area] in Serum or Plasma by Creatinine-based formula (MDRD) >60 [facility] ID Date Data Source [id number] 05/10/2020 01:00:04 PM EDT [facility] Name Value Range Interpretation Code Description Data Neva rce(s) Supporting Document(s) Thyrotropin [Units/volume] in Serum or Plasma 3.770 u[IU]/mL 0.270-4. 200 [facility] ID Date Data Source [id number] 05/07/2020 10:00:00 AM EDT [facility] Name Value Range Interpretation Code Description Data Neva rce(s) Supporting Document(s) SARS coronavirus 2 RNA [facility] This lab was ordered by [facility] and reported by [facility]. ID Date Data Source [id number] 05/09/2020 02:09:00 PM EDT [facility] Name Value Range Interpretation Code Description Data Neva rce(s) Supporting Document(s) SARS-CoV-2, MELODIE Not Detected Not Detected [facility] This test was developed and its performa nce characteristics determinedby [employer]. This test has not been FDA cleared [...] have anegative (not detected) result in this assay. ID Date Data Source [id number] 05/07/2020 10:00:00 AM EDT [place] ([facility]) Name Value Range Interpretation Code Description Data Neva rce(s) Supporting Document(s) Reported Physicians See Note Reported Physici ans [place] ([facility]) Note: Reported Physicians:Ordering: Darek JOVELending: Soraya GLASSulting: Mariama PHAM To: Makenna Glass ID Date Data Source [id number] 05/07/2020 10:00:00 AM EDT [place] ([facility]) Name Value Range Interpretation Code Description Data Neva rce(s) Supporting Document(s) SARS-CoV-2, MELODIE Not Detected SARS-CoV-2, [place]ELODIE [facility] ([facility]) Note: This test was developed and its pe rformance characteristics determinedby [employer]. This test has not been FDA cleared [...] detected) result in this assay.Responsible Observer: (rfl) ID Date Data Source [id number] 04/19/2020 03:47:51 PM EDT [facility] Name Value Range Interpretation Code Description Data Neva rce(s) Supporting Document(s) Progress Note [facility] [id number] [facility] [file] [id number] office [file] [id number] ID Date Data Source [id number] 04/19/2020 01:13:31 PM EDT [facility] Name Value Range Interpretation Code Description Data Neva e(s) Supporting Document(s) Leukocytes [#/volume] in Blood by Automated count 7.2 10*3/uL 4-10 [facility] Erythrocytes [#/volume] in Blood by Automated count 4.20 10*6/uL 4.6- 6.1 L [facility] Hemoglobin [Mass/volume] in Blood 13.5 g/dL 13.5-18 [facility] Hematocrit [Volume Fraction] of Blood by Automated count 38.5 % 4 1-53 L [facility] Erythrocyte mean corpuscular volume [Entitic volume] by Auto mated count 91.8 fL 80-96 [facility] Erythrocyte mean corpuscular hemoglobin [Entitic mass] by Automated count 32.2 pg 27-33 [facility] Erythrocyte mean corpuscular hemoglobin concentration [Mass/volume] by Automated count 35.1 g/dL 32.0-36.0 [facility] E[facility]th[facility] distribution width [Ratio] by Automated count 14.7 % 11.5-14.5 H [facility] Platelets [#/volume] in Blood by Automated count 215 10*3/uL 150-400 [facility] Differential cell count method - Blood [facility] Neutrophils/100 leukocytes in Blood by Automated count 73 % [facility] Lymphocytes/100 leukocytes in Blood by Automated count 10 % [facility] Monocytes/100 leukocytes in Blood by Automated count 10 % [facility] Eosinophils/100 leukocytes in Blood by Automated count 5 % [facility] Basophils/100 leukocytes in Blood by Automated count 2 % [facility] Neutrophils [#/volume] in Blood by Automated count 5.29 10*3/uL 1.8-7 .0 [facility] Lymphocytes [#/volume] in Blood by Automated count 0.69 10*3/uL 1.2-4 .0 L [facility] Monocytes [#/volume] in Blood by Automated count 0.75 10*3/uL 0-0.8 [facility] Eosinophils [#/volume] in Blood by Automated count 0.38 10*3/uL 0-0.5 [facility] Basophils [#/volume] in Blood by Automated count 0.11 10*3/uL 0-0.2 [facility] Nucleated erythrocytes/100 leukocytes [Ratio] in Blood by Automated count 0 /100{WBCs} 0-0 [facility] ID Date Data Source [id number] 04/19/2020 01:27:29 PM EDT [facility] Name Value Range Interpretation Code Description Data Neva rce(s) Supporting Document(s) Albumin [Mass/volume] in Serum or Plasma by Bromocresol green (BCG) dye binding method 4.2 g/dL 3.5-5.2 [facility] Bilirubin.total [Mass/volume] in Serum or Plasma 0.4 mg/dL <1.2 [facility] Calcium [Mass/volume] in Serum or Plasma 9.1 mg/dL 8.8-10.2 [facility] Chloride [Moles/volume] in Serum or Plasma 93 mmol/L 98-107 L [facility] Creatinine [Mass/volume] in Serum or Plasma 0.69 mg/dL 0.70-1.20 L [facility] Glucose [Mass/volume] in Serum or Plasma 127 mg/dL 70-140 [facility] Alkaline phosphatase [Enzymatic activity/volume] in Serum or Plasma 86 U/L 40-129 [facility] Potassium [Moles/volume] in Serum or Plasma 3.7 mmol/L 3.4-5.1 [facility] Protein [Mass/volume] in Serum or Plasma 6.7 g/dL 6.4-8.3 [facility] Sodium [Moles/volume] in Serum or Plasma 126 mmol/L 136-145 L [facility] Aspartate aminotransferase [Enzymatic activity/volume] in Serum or Plasma 17 U/L <40 [facility] Urea nitrogen [Mass/volume] in Serum or Plasma 8 mg/dL 8-23 [facility] Osmolality of Serum or Plasma by calculation 261 mosm/kg 275-300 L [facility] Creatinine/Urea nitrogen [Mass Ratio] in Serum or Plasma 11 [facility] Bicarbonate [Moles/volume] in Serum 25 mmol/L 22-29 [facility] Alanine aminotransferase [Enzymatic activity/volume] in Seru m or Plasma 11 U/L <41 [facility] Anion gap 3 in Serum or Plasma 8 mmol/L 8-15 [facility] Glomerular filtration rate/1.73 sq M pre dicted among non-blacks [Volume Rate/Area] in Serum or Plasma by Creatinine-based formula (MDRD) >6 0 [facility] Glomerular filtration rate/1.73 sq M pre dicted among blacks [Volume Rate/Area] in Serum or Plasma by Creatinine-based formula (MDRD) >60 [facility] ID Date Data Source 04/19/2020 01:27:29 PM [facility] Value Range Interpretation Code Description Data Neva rce(s) Supporting Document(s) Iron [Mass/volume] in Serum or Plasma 90 ug/dl 59-158 [facility] Transferrin [Mass/volume] in Serum or Plasma 219 mg/dL 200-360 [facility] Iron binding capacity [Mass/volume] in Serum or Plasma 304 ug/dl 228 -428 [facility] Iron saturation [Mass Fraction] in Serum or Plasma 30.0 % 20-55 [facility] ID Date Data Source 04/19/2020 01:29:19 PM [facility] Value Range Interpretation Code Description Data Neva rce(s) Supporting Document(s) Triiodothyronine (T3) [Mass/volume] in Serum or Plasma 86.30 ng/ dL 80.00-200.00 [facility] ID Date Data Source 04/19/2020 01:39:09 PM [facility] Value Range Interpretation Code Description Data Neva rce(s) Supporting Document(s) Ferritin [Mass/volume] in Serum or Plasma 151 ng/ml 30-400 [facility] ID Date Data Source 04/19/2020 01:39:09 PM [facility] Value Range Interpretation Code Description Data Neva rce(s) Supporting Document(s) Thyroxine (T4) free [Mass/volume] in Serum or Plasma 1.41 ng/dL 0.93- 1.70 [facility] ID Date Data Source 04/19/2020 01:39:09 PM [facility] Value Range Interpretation Code Description Data Neva rce(s) Supporting Document(s) Thyrotropin [Units/volume] in Serum or Plasma 4.180 u[IU]/mL 0.270-4. 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 [file] ICAgICAgICAgICAgICAgICAgICAgICAgICAgICAgICAgICAgICAgICAgICAgICAgICAgICAgICAgICAg MFFgQXCfEAAkJFJxQGWdBNNnYJZgJLTtRKQaPOWsELLuJI4AJMUlJKTlPCPnQGUjDNMzGHHxMNUyOQAl ICAgICAgICAgICAgICAgICAgICAgICAgICAgICAgIC MuDPEaTZOdQUNpNLMfQOMfESZfUMNkQZQgBVCqZWNdHUTwGYEfLYBsBTItEQ2CKGMmPKCbRYIoQBScQT AgICAgICAgICAgICAgICAgICAgICAgICAgICAgICAgICAgICAgICAgICAgICAgICAgICAgICAgICAgIC DlZFAuKXSlTKYvSWLsBZWoHDFkRJGiLZMzUD4SBJWc ICAgICAgICAgICAgICAgICAgICAgICAgICAgICAgICAgICAgICAgICAgICAgICAgICAgICAgICAgICAg LUXdBKSdDCLeKUClKJPbXJAyHVLaOOJwGMApDQGpKVKcKWCkDG6HWABtXQVfSUKfUGXqMWTjXTFaJHEs ICAgICAgICAgICAgICAgICAgICAgICAgICAgICAgIC OfPYHmQHTzXUUvDHEeZPObNEHxDLZaFUIwVVOeYTPpRRDgPACeDLKfJCLxEHDuVU6GAIKnUKPcCIFyAM AgICAgICAgICAgICAgICAgICAgICAgICAgICAgICAgICAgICAgICAgICAgICAgICAgICAgICAgICAgIC QlZZXrUJExQOEgDAJzNVFdNLIoDLJbTGTaFSScLF5P ICAgICAgICAgICAgICAgICAgICAgICAgICAgICAgICAgICAgICAgICAgICAgICAgICAgICAgICAgICAg TWCbGNNxNXAnJIIyPAOoAOSzZSFwOJXoHKBvBPWxXFPyMZYxBIHbXA8WYEDrMYSbBMEyQXLySMCeDHKy ICAgICAgICAgICAgICAgICAgICAgICAgICAgICAgIC RoXPMuSECnCPFfQJAcFCYiJOPfRBBoDNOtAFOcHLTlZZMvGYGsSOMbWTAnXFUuXTVsDF6RJJGmCNSkRV AgICAgICAgICAgICAgICAgICAgICAgICAgICAgICAgICAgICAgICAgICAgICAgICAgICAgICAgICAgIC AgICAgICAgICAgICAgICAgICAgICAgICAgICAgICAg FS4SPQVwQWNbXCCnJYByQTSmXKWsCAPdZJEbNQTsUDLpELNpTRQqDJFuQRHfFKYtKPNzXQTgVJJnFKLd WJKnDYXbMDEgSNGtRJZbWZTtCVQiNODrMVWeAVGaMODoZTPqLNEeSAMdXV8VIB54ePRmg1P8SXMiWJ1i dyc/Ul5VEHbeesUdtOItXT8LYjWbSC7cxl4OHtTvDC 2qhl3DHDkVYuEbW5P8nWLiUESwLHTMHhOtV27wQMfnEt97YOkwACOvZoYwZSi5Si0UWrCdA6lbTJTwRs Q2XEKoKvV9QEGpEuCpZCJoXEBnOCMbIBGZDEK5KUSjBgUdDlQaVWScKCxjBCREFXRhHWIjQcQoYDhtUI 0Ge5LvqFV8PKc+Wu6NVK5tl7KuKLufAeFfVZ8tba4U DCvNHfTpZ9QqjoX9SLV0SCIhEt6AQFBvJLRquHFuCZOmIBYKHxVuT6PvqZ88AXVQLg4+DQplbmRvYmoN AyO5FBQmm9YuPUr0LO8PRGPsQOq0qBKjXRGhK0Jhd7LfGy67LVOyIrrbRFZyAQafxHYSBMLyVFFwnGvx ZrWsJSRaNk8kTE4oKMOsXQVyKqDyLSXUTA7BAGHiMF ChsBQnZUNqUVKQCG7CDMtxGRI3YTXppeLpkVLbEItyUS2AJBBlwmQxUbhmHHHZLBe+Nc8BCV0br9YuVC d1RSBkv5LhGAz5WM1ZIJRcCXucKKQmKO7hh4NeW7E1ZwL3yWIrB7xmumkoD5QktzJioxWpSEMsJTWyOW 5LYR2UGG3QFHDjYCdfPW7NNCR4AKz5PeA8HttaRPUg ZCN9Ms5tPMkfMO7XLHr5L2ThB4PTUTKiGQZBIVSirOD2QGBOAr2JB3MKZdnGRQXZLr6EOxXrW6LFA0hK I57FGR0LHKU+PiANCj4+UDzedzOkFzyWTsK3ZIIgg9JsDIg0EE2ROUMmBSqqLX8RGZClhT5eHXtqKZ7W OjVtRKVbBNGBYuQbR65gxYDrVWn6Y3VfThQaKHAtAt lsZXMgPDwvTmFtZXMgWyBdDQogID4+ID4+ERceVI2DPHfqjbJvHCLnIz9COAZeKPFpMK6pUMRbHDUxJ8 Y8eAkcRLJBQlMjG0fmtqwfSK7bUDTyL490zXfzdeSmISF8ACPsZz0WIPJsKPC9NDHafGMyKzIuMLTQBG xxHF6TcRQxCTE9kW8oSDapIZGbRFZjG4qMTnGnmGqc IS70fQycwpVdsDRkQHb+Jw5RMV5be8VcOOf6uxYrWXvhSXIfXMbdJUTqQLZrOOLpMFF8QDE3OFTFTrYv IHEvDGXwFHiqWYCoFGWjsy5HWUUhEEK4BEU9DQWpRTMmYROqQAujQEEnKFK0YXAcPTGfJUIgHT7UZbOc QRDiIMAzJTyzHTJlJORryt8DAYLtVPGrWkCqCfJcGJ GcSTWeLMueISPmSWS3HcP2APTbAWBpIS1APrMaURZcCEJ5RrCzBPNrLMRkar3CIFUaBKOlMQPzEAUqIE AwTRHxUSvzMUEbRIW5TZEoRKEoBDCjGN2UVuDxKRMvXJX3XVUrCHWkJQXtek1VPGKmCCXsOuI9HQKjQT YgWBKjJOnfLRRoJTA9QaN4BFVwGLWwGI3BTgNuHYWg EUS3VXOzAMAeBSEouj4OKYTqDBSyZdz6SPVwXITkNAJyPWkiHGUbJVW5JCQ7LLRoILTtMF8QIyMlKUMf PzRbDPAzBGFcYLHcjn5SFVNxSFVrBqC9BlFsJBByYTSpVWoxXKCpBUR1TKO5TKLfUZFfNB5OGcErDOYz XkOdGtSrGICiSCFcgi9BYYMjYKVtZtU4ZMThUVSuUL HzKXsyWBZkHQM8Qnm9XCPlNGEpJE5BFeBbKKLqNlx6GRVsWUFkKDNnrx7VBNSlSZRuEAq1GJTpFHZwAW NbBFpvJWXkREF1CAK6ALAjDTSnPZ9JXcQfSVDmMdWzGVBjGCOiMJLxyy6MGZZfNKBxOMV8DHMrVRLdLS IvNIoqRQQgTKPkJVupYJKsPLQpPG2JRkBjTQTgKCN3 QTIhTHLdLUDyue5AKEMaTAV1AnTdAHDoQIQmHDCvJKwgWUTiXQSoUGA4GMIfMBWaSQ5AMvShYQDsSUC7 OHysSBPfGXNssr0JNJVbDKL1MsfbIoIjIQNjQOZsWSdfYALwWKBeIei7SYUoVNJwAV4XRbNlOSSdBEA7 AhQlNDYoFVNott8LXTInRJS1DIF7XsHcBHGgKUXqJW ynCRGcNXD0JAUgZTLjYKNpUR7DAhZqTVEpKBRbADPsEQKuPUCvfh3EABYvXQT4LtZzPpOuBSGjWLPyWA iqDKFnMKA7BKV9FYApSXWsWD8KOjLmGCsqIXBJAkw4LAbrL8f6GPB9NE4YE0Mnx0HiAetvQVFEVLpzGU 8ssrPtIFIcRu4MP9jCUeysFXIfFoLeIRBcVBV9I1B9 EII1RZVeXyHeZWT2ZJAfJo6tBYA4ZzE1LXVhRDC5SSnxPHD1AYa3B7JkUTYoZmz0U7CgEbYwVI5TQh6A KnA0ZLG6mBLzKn1NZQG0TUlPMhYdDI2YOCb= ID Date Data Source [id number] 03/29/2020 10:52:46 AM EDT [facility] Name Value Range Interpretation Code Description Data Neva e(s) Supporting Document(s) Leukocytes [#/volume] in Blood by Automated count 8.3 10*3/uL 4-10 [facility] Erythrocytes [#/volume] in Blood by Automated count 4.23 10*6/uL 4.6- 6.1 L [facility] Hemoglobin [Mass/volume] in Blood 13.4 g/dL 13.5-18 L [facility] Hematocrit [Volume Fraction] of Blood by Automated count 38.6 % 4 1-53 L [facility] Erythrocyte mean corpuscular volume [Entitic volume] by Auto mated count 91.3 fL 80-96 [facility] Erythrocyte mean corpuscular hemoglobin [Entitic mass] by Automated count 31.7 pg 27-33 [facility] Erythrocyte mean corpuscular hemoglobin concentration [Mass/volume] by Automated count 34.7 g/dL 32.0-36.0 [facility] Erythrocyte distribution width [Ratio] by Automated count 16.2 % 11.5-14.5 H [facility] Platelets [#/volume] in Blood by Automated count 235 10*3/uL 150-400 [facility] Differential cell count method - Blood [facility] Neutrophils/100 leukocytes in Blood by Automated count 76 % [facility] Lymphocytes/100 leukocytes in Blood by Automated count 8 % [facility] Monocytes/100 leukocytes in Blood by Automated count 10 % [facility] Eosinophils/100 leukocytes in Blood by Automated count 5 % [facility] Basophils/100 leukocytes in Blood by Automated count 1 % [facility] Neutrophils [#/volume] in Blood by Automated count 6.28 10*3/uL 1.8-7 .0 [facility] Lymphocytes [#/volume] in Blood by Automated count 0.67 10*3/uL 1.2-4 .0 L [facility] Monocytes [#/volume] in Blood by Automated count 0.84 10*3/uL 0-0.8 H [facility] Eosinophils [#/volume] in Blood by Automated count 0.45 10*3/uL 0-0.5 [facility] Basophils [#/volume] in Blood by Automated count 0.11 10*3/uL 0-0.2 [facility] Nucleated erythrocytes/100 leukocytes [Ratio] in Blood by Automated count 0 /100{WBCs} 0-0 [facility] ID Date Data Source [id number] 03/29/2020 11:22:56 AM EDT [facility] Name Value Range Interpretation Code Description Data Neva rce(s) Supporting Document(s) Albumin [Mass/volume] in Serum or Plasma by Bromocresol green (BCG) dye binding method 4.3 g/dL 3.5-5.2 [facility] Bilirubin.total [Mass/volume] in Serum or Plasma 0.4 mg/dL <1.2 [facility] Calcium [Mass/volume] in Serum or Plasma 8.9 mg/dL 8.8-10.2 [facility] Chloride [Moles/volume] in Serum or Plasma 95 mmol/L 98-107 L [facility] Creatinine [Mass/volume] in Serum or Plasma 0.77 mg/dL 0.70-1.20 [facility] Glucose [Mass/volume] in Serum or Plasma 148 mg/dL 70-140 H [facility] Alkaline phosphatase [Enzymatic activity/volume] in Serum or Plasma 98 U/L 40-129 [facility] Potassium [Moles/volume] in Serum or Plasma 4.0 mmol/L 3.4-5.1 [facility] Protein [Mass/volume] in Serum or Plasma 7.0 g/dL 6.4-8.3 [facility] Sodium [Moles/volume] in Serum or Plasma 132 mmol/L 136-145 L [facility] Aspartate aminotransferase [Enzymatic activity/volume] in Serum or Plasma 15 U/L <40 [facility] Urea nitrogen [Mass/volume] in Serum or Plasma 7 mg/dL 8-23 L [facility] Osmolality of Serum or Plasma by calculation 275 mosm/kg 275-300 [facility] Creatinine/Urea nitrogen [Mass Ratio] in Serum or Plasma 9 [facility] Bicarbonate [Moles/volume] in Serum 25 mmol/L 22-29 [facility] Alanine aminotransferase [Enzymatic activity/volume] in Seru m or Plasma 9 U/L <41 [facility] Anion gap 3 in Serum or Plasma 12 mmol/L 8-15 [facility] Albumin/Globulin [Mass Ratio] in Serum or Plasma 1.6 [facility] Glomerular filtration rate/1.73 sq M pre dicted among non-blacks [Volume Rate/Area] in Serum or Plasma by Creatinine-based formula (MDRD) >6 0 [facility] Glomerular filtration rate/1.73 sq M pre dicted among blacks [Volume Rate/Area] in Serum or Plasma by Creatinine-based formula (MDRD) >60 [facility] ID Date Data Source [id number] 03/29/2020 11:22:56 AM [facility] Name Value Range Interpretation Code Description Data Neva rce(s) Supporting Document(s) Thyrotropin [Units/volume] in Serum or Plasma 3.000 u[IU]/mL 0.270-4. 200 [facility] ID Date Data Source [id number] 03/29/2020 11:57:57 AM [facility] Value Range Interpretation Code Description Data Neva rce(s) Supporting Document(s) Ferritin [Mass/volume] in Serum or Plasma 338 ng/ml 30-400 [facility] ID Date Data Source [id number] 03/29/2020 11:57:57 AM [facility] Value Range Interpretation Code Description Data Neva rce(s) Supporting Document(s) Iron [Mass/volume] in Serum or Plasma 86 ug/dl 59-158 [facility] Transferrin [Mass/volume] in Serum or Plasma 218 mg/dL 200-360 [facility] Iron binding capacity [Mass/volume] in Serum or Plasma 303 ug/dl 228 -428 [facility] Iron saturation [Mass Fraction] in Serum or Plasma 28.0 % 20-55 [facility] ID Date Data Source [id number] 03/27/2020 09:45:02 AM EDT [facility] CT THORAX WITH CONTRAST [id number] RESUL TInterpreted by:David Jerry MDINDICATION: hx of lung cancer to reassess disease.TECHNIQUE: Multidetector row helical CT of the chest was performed with intravenous contrast. Coronal and sagittal reformations were obtained. Automated dose lowering techniques and/or adjustment according to patient size were utilized for this exam.COMPARISON: CT chest dated 12/27/2019.FINDINGS: Lungs and large airways: Redemonstration of multiple pleural-based pulmonary nodules throughout the right lung, which appear grossly stable to prior study. The largest one measures approximately 2.9 x 1.0 cm. There is a 4 mm nodule in the left lung apex image 135 of 633, unchanged from prior. Additionally, there are several regions of groundglass opacity in left upper lobe, also unchanged from prior study. Stable appearance of pleural- based nodule in the left lower lobe measuring 11 mm. Central airways are patent.Pleura: No significant pleural effusion or pneumothorax. Multiple pleura l-based nodules as described above.Heart and pericardium: Heart size is normal. No pericardial effusion.Mediastinum and keaton: There are several mildly enlarged paratracheal lymph nodes, which appear unchanged from prior study. 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 Moderate atherosclerotic changes in the aorta and coronary arteries.Chest wall and osseous structures: Stable appearance of T8 compression fracture. Moderate degenerative changes of the visualized thoracic spine are noted.Upper abdomen: For findings below the diaphragm, please refer to report for CT abdomen from the same date.IMPRESSION:1. Stable appearance of numerous pleural-based masses, predominantly within the right lung.2. Mild mediastinal lymphadenopathy, without significant interval change.3. Stable appearance of additional pulmonary nodules and groundglass opacities.This document has been electronically signed by David Jerry MD on 03/27/2020 9:42 AM Name Value Range Interpretation Code Description Data Neva rce(s) Supporting Document(s) ID Date Data Source [id number] 03/27/2020 09:10:02 AM EDT [facility] CT ABDOMEN PELVIS WITH CONTRAST [id number] AL RESULTInterpreted by:Chris Priscilla Clark MDINDICATION: 85-year-old male with a history of lung cancer, who presents for CT follow-up.TECHNIQUE: Multidetector row helical CT of the abdomen and pelvis was performed following intravenous administration of 100 mL of Omnipaque-300. Oral dilute Omnipaque solution was administered. Coronal and sagittal reformations were obtained. Automated dose lowering techniques and/or adjustment according to patient size were utilized for this exam.COMPARISON: CT abdomen and pelvis dated 09/12/2019.FINDINGS: LUNGS AND MEDIASTINUM: For details regarding the visualized thorax, see the report for the CT of the thorax obtained on this date.LIVER: There are stable (too small to characterize) hypodense lesions within the right lobe of the liver.There is stable focal area of low-density adjacent to the falciform ligament (segment IVb). The remainder of the liver is normal in density relative to the spleen.The re are no other focal lesions and the remainder of the liver is unchanged and otherwise normal.GALLBLADDER AND BILIARY TREE: There is a relatively stable 1.7 cm noncalcified gallstone noted within the gallbladder neck and the remainder of the gallbladder is otherwise normal.The common bile duct is slightly prominent measuring up to 6.8 mm within the mahad hepatis. There is stable mild prominence of the intrahepatic biliary ducts.PANCREAS: There is mild fatty involution of the pancreas. There are no focal lesions, inflammatory change or ductal dilation and the remainder of the pancreas is unchanged and otherwise normal. The previously described soft tissue density within the portacaval space is not well visualized on this study.SPLEEN: The spleen is unchanged and normal and there are no focal lesions within the spleen.Anterior to the spleen there is a 2.8 x 1.5 x 6.9 cm lobulated soft tissue density focus with rim calcification, which may represent calcified lymph nodes. This appears similar to prior study.ADRENALS: The adrenal glands are unchanged and normal.KIDNEYS/URETERS: There is a stable 5 mm hypodensity noted within the inferior pole the left kidney (too small to characterize).The kidneys are normal in size and shape. There is no evidence of nephrolithiasis, hydronephrosis or perinephric edema.There is normal uptake, concentration and excretion of intravenous contrast and intrarenal and extrarenal collecting systems and visualized ureters are normal.STOMACH: The patient is status gastric post pull-through procedure and there are stable postsurgical changes of the esophageal hiatus.BOWEL: There are stable rim calcified structures remain be located within the omentum just below the transverse colon.The duodenum and small bowel are normal and there is no evidence of obstruction. There is stable moderate to marked diverticulosis without evidence of diverticulitis. There is a moderate amount of stool throughout the colon and the main and large bowel is grossly normal.The cecum is located within the right lateral midabdomen. The appendix is normal and located along the superior margin of the cecum just below the liver.LYMPH NODES: No pathologically enlarged lymph nodes.PERITONEAL SPACE: There is no evidence of free air or free fluid.RETROPERITONEAL SPACE: There is no retroperitoneal and the inferior vena cava is normal. VESSELS: The abdominal aorta is normal in caliber and markedly tortuous with marked diffuse atherosclerotic calcification.There is calcification of the origins of the celiac, superior mesenteric, renal and inferior mesenteric arteries. There is prominent calcifica tion of the iliac arteries throughout the pelvis.BLADDER: The bladder is well distended and unremarkable.REPRODUCTIVE ORGANS: The prostate gland is mildly heterogeneous in density, measuring 33 x 46 x 50 mm and the seminal vesicles are normal.There is retraction of the right testicle into the right inguinal canal below the inguinal ligament and the visualized left testicle is located within the scrotum and both testicles are grossly normal.BODY WALL: There is no significant soft tissue edema. The muscular and visualized soft tissue structures of the body wall, pelvic and hip regions are unchanged and normalBONES: There is stable moderate osteopenia throughout study. There is stable moderate to marked degenerative change throughout the thoracolumbar spine with multilevel disc space narrowing, vacuum phenomena and disc bulging versus disc herniations.There is stable loss of lumbar lordosis with a moderate mid to upper lumbar dextroscoliosis and marked degenerative bony change of the lumbar facet joints.There is stable moderate degenerative change of the sacroiliac joints and hip joints and the remainder of the bony pelvis and sacrum are normal.IMPRESSION:1. There are stable multiple (too small to characterize) hypodense lesions within the right lobe of the liver and adjacent to the falciform ligament.2. There is stable calcified lesions anterior to the spleen and about the anterior omentum that may represent calcified lymph nodes.3. The patient is status post gastric pull-through and there are stable postsurgical changes of the esophageal hiatus.4. The prostate gland is enlarged and hetero geneous and correlation with the patient's PSA level and physical exam is recommended.5. There is no evidence of adenopathy.6. There is diverticulosis with no evidence of diverticulitis.7. The remaining solid organs and remaining bowel are normal.8. Note is made of an atypical location of the cecum and appendix within the inferior right upper quadrant. This should be noted for future references appendicitis may have an atypical presentation in this patient.9. There is retraction of the right testicle into the right inguinal canal lobe of the inguinal ligament there is a nonspecific finding.10. There are additional stable findings as described above.This document has been electronically signed by Chris Morataya MD on 03/27/2020 9:07 AM Name Value Range Interpretation Code Description Data Neva rce(s) Supporting Document(s) ID Date Data Source [id number] 03/20/2020 01:56:00 PM EDT [facility] ([facility]) Name Value Range Interpretation Code Description Data Neva rce(s) Supporting Document(s) Color of Urine Laboratory test result [facility] ([facility]) Spec [place] 1.005 [facility] ([facility]) Appearance of Urine Laboratory test result [facility] ([facility]) pH of Urine by Test strip 8 [facility] NT ([facility]) Protein [Presence] in Urine by Test strip Laboratory test result [facility] ([facility]) Nitrate [Presence] in Urine Laboratory test result [facility] ([facility]) Inhouse Glucose Laboratory test result [facility] ([facility]) Leukocytes Laboratory test result [facility] ([facility]) Bilirubin.total [Presence] in Urine by Test strip Laboratory test res ult [facility] ([facility]) Ketones [Presence] in Urine by Test strip Laboratory test result [facility] ([facility]) Urobilinogen Laboratory test result [facility] ([facility]) Blood type and Indirect antibody screen panel - Blood Laboratory test result [facility] ([facility]) ID Date Data Source [id number] 03/09/2020 10:01:32 AM EDT [facility] Name Value Range Interpretation Code Description Data Neva rce(s) Supporting Document(s) Progress Note [facility] DBCOXd5eItTSIyZw56/YZWyfYCOwt8OfCJnhNUm3KZvtILIyF0HoMXW4hK9nHDH2EXeUThQsVfDwTGAa lbm [file] ICAgICAgICAgICAgICAgICAgICAgICAgICAgICAgICAgICAgICAgICAgICANCiAgICAgICAgICAgICAg ICAgICAgICAgICAgICAgICAgICAgICAgICAgICAgIC AgICAgICAgICAgICAgICAgICAgICAgICAgICAgICAgICAgICAgICAgICAgICAgICAgICAgICANCiAgIC AgICAgICAgICAgICAgICAgICAgICAgICAgICAgICAgICAgICAgICAgICAgICAgICAgICAgICAgICAgIC AgICAgICAgICAgICAgICAgICAgICAgICAgICAgICAg ICAgICANCiAgICAgICAgICAgICAgICAgICAgICAgICAgICAgICAgICAgICAgICAgICAgICAgICAgICAg ICAgICAgICAgICAgICAgICAgICAgICAgICAgICAgICAgICAgICAgICAgICAgICANCiAgICAgICAgICAg ICAgICAgICAgICAgICAgICAgICAgICAgICAgICAgIC AgICAgICAgICAgICAgICAgICAgICAgICAgICAgICAgICAgICAgICAgICAgICAgICAgICAgICAgICANCi AgICAgICAgICAgICAgICAgICAgICAgICAgICAgICAgICAgICAgICAgICAgICAgICAgICAgICAgICAgIC AgICAgICAgICAgICAgICAgICAgICAgICAgICAgICAg ICAgICAgICANCiAgICAgICAgICAgICAgICAgICAgICAgICAgICAgICAgICAgICAgICAgICAgICAgICAg ICAgICAgICAgICAgICAgICAgICAgICAgICAgICAgICAgICAgICAgICAgICAgICAgICANCiAgICAgICAg ICAgICAgICAgICAgICAgICAgICAgICAgICAgICAgIC AgICAgICAgICAgICAgICAgICAgICAgICAgICAgICAgICAgICAgICAgICAgICAgICAgICAgICAgICAgIC ANCiAgICAgICAgICAgICAgICAgICAgICAgICAgICAgICAgICAgICAgICAgICAgICAgICAgICAgICAgIC AgICAgICAgICAgICAgICAgICAgICAgICAgICAgICAg ICAgICAgICAgICANCiAgICAgICAgICAgICAgICAgICAgICAgICAgICAgICAgICAgICAgICAgICAgICAg ICAgICAgICAgICAgICAgICAgICAgICAgICAgICAgICAgICAgICAgICAgICAgICAgICAgICANCjw/eHBh T8qjxRAyxmR9N4agEv8NHw1DAZ9if8QgDUEaRGrxey QlRvjHTuQaVYSjOvqKPfp2KOdxGS0WpVRlE4WiY0DjXKyeWR0DWMCtCVXzlMLuWPNvMFJiQyX8CFWhUJ xcMU3QwQBlOPeyOXAaQWFlGFCxJEQhCBZpTYQYZJBjEGUdIkUiVQZoADUoADDxIZPOQAD6HEQiVmKhZS IsSDPvUC5GJMEfT463wxZkOB9KWc8GDtZlRY6hey4J GcwqIJAwOchIQyj7JSkiEP6HsHPksNXtFQPqAWNHIcIrM2aaj1XyGxjxQUAYASvtXO0Pq6OplIGtJCp+ Hs8WPP4qg5PqNZjxCNLzUK0hww7UJNuHFsYqL7QydElnCIMgv3hvFMFsGY1fqASbVYW7OBgwhoNclA3b LPPEeJBlLYUzOA4XRZQ6UBZtGfVtRhAgGOCdBZc7AF MLKFuHWaYgE8Bzc8KtRaZ5BIWhStBsREjvGSDlKlA2OS31eFxgFI0RGQSxAGOaGY95FIN1OUDyMi2LKm 2PBfLrQP9pfr0VNmQdXO3mlw5KKOkKAbPeH8C3sWEdD7Gwff52ZZ9QfEC6dPDrRD3UiA8sUH0Xx6GfSA ZaEpHyAEZnHUUfBNDgJHLiYxXmLP4LBUNrXsDudMHm FLHfUQurMXSsIbW3AeUhVM1TFINqDIG5GC8VYX8SQqgzN7QKBMejzLcvHkAOIKK/QUNUSVZJVFkmTVJf C07YG4QCKXgSVemtILzZZuqwEx1mWYl+Xo2VQZ1nt8AxXDyzBQHbZU6mnf7XOWoCNxNeK9H4pQFeF6F5 KIjiEy2VAXLaUIXfNxSbZRNZGWovBB3UDX5inhE2ZZ 7ZsQQdELJrNDTzfHSmUQy0X22pqLMfGShiDF2QZOK+Delbert+Lu6QZJOkMDGxGDQbNcSkMZCPLzDvC1KkS1 ZTy7BgS0WwTE41rGswjwXsSPqzQL1KJY4zDRCxCGBIKD5FoEDrxH5zokZsScFgATMKEwEoP03bfTVhOV RzKYD1UBVhWi2SOSPbS2QwrqOjwKmeyhArZZCxXFEO MN8TPRxgfyKzfHGdzFulDE53mEjlEU7MVl6CIfKaBL1vtj2CrJIsVm3WWCR2HE4QVXXdUUCtXGLcMRO0 JASjWvWxGNwxUSLpBEIlXVX8QFLvHIHsGM2MHaHaWLJkNJCpXKIdTHNyNCMiya0UEGMvVCG2TiniDNMn PISiLAUiYKhzGEQfVKXeTTI0EURsONFzXP5XGsTwFT PlEDE3ABAiVNNgHXQpjt0HGNZvEDI2OjG0TbKnEPAiCDMlOFafVUDpALDnQmrnLBHjNBRvTA8ROwRpMG KsZOcdExNmBHAnPSAmpv3MVNOzPEAmHGM9YoSpITXuFSVxBRxsBJCxCBEeKeN1QAWeSVBwWP9RGwVcZG MrMNG7EvJjDUAvNMZudr4WJCRnBQPsWKr1DlGyHWJc EUFqFAkuFOQjBRQ1AVi6PKHgJBUoAK2VMgUrAFFhHOrkIXtkHEUjXOXtcw5ZYFVtYAQnAWV0OYAnLERh NQNyRUdyFLMyIBErEMArWABnQGHdRS6YRnVnQCSkHgIdUKQcYYHxGLCcxb2NORKfLQGfWZB8ZPCtXZWp XCLcGAexNRLsYJP3VGXzJYDsOYCpUU8QRmYrCGMxTy f2LGflMCHeHQIjxf3QYSUdNTBoKUyeOaSzMWEaNKAjWBplVCOxDKY5CsGwETAlCGOkCC2PQlNjEGVoSz g7RyTbPXDiMNTdgw3WUXIhQOMbNUG7ErDzJCWiCBRpJMlvADWsYKExBAQcTSQwVJEuNN8YPtCsDKMwUq HiOQAaTKOrEXVxpc7FDIYnXHYhJYZ3JvDfNVZfSPQp ZNvnUAWfUZLnSOPkMUPtCHDwOX4LSqLgUNKjBXTyODhvYGPbVHMuik8HKKPuDKO4IfW6AiDoILAyOIEr EQghGODjVOQxMuY7TCTbFRVxGA6HYgWyMMRnYHB4QPMuPTYeEBMskz0YNQBmYJM6RGI6LvEvRSLlCQNp LUzfHCLgEWD7DDu7MZSwCJWgPJ9ZOvHdYJVcMXVzUj DsHDVfGSDucz7QDYKmMYS6HSX4WDGtESUnNGYlXYyiOUMjWTX0AOG1SXTrUEMrEG2GIrOqBNGmQLttNl AxSAHcYLCbqc0PAVOpRBF8WaZ5ToKoIOMjUHTrXWu3diMbjLLsEQp5IA7KM5EijtWoSIILIl0Cx475SM B1NANhVg4LY2gjGm5mEMWdMHOUNp9EEXz4NsOsCYY3 G0I3P0DrLzClXBW5LhSjYBQlGDB3ESA3LXY+KVwmV7L1PQo0JqmaWASgY9O6FcCoPtS2LhSpZZNmECP8 Eu3zLVAKWz5+NNvvqKOfeWbtOORHEvJ7SpE4MAtkOAXZRe6J ID Date Data Source [id number] 03/08/2020 01:31:23 PM EDT [facility] Name Value Range Interpretation Code Description Data Neva rce(s) Supporting Document(s) Leukocytes [#/volume] in Blood by Automated count 8.1 10*3/uL 4-10 [facility] Erythrocytes [#/volume] in Blood by Automated count 4.11 10*6/uL 4.6- 6.1 L [facility] Hemoglobin [Mass/volume] in Blood 12.7 g/dL 13.5-18 L [facility] Hematocrit [Volume Fraction] of Blood by Automated count 36.9 % 4 1-53 L [facility] Erythrocyte mean corpuscular volume [Entitic volume] by Auto mated count 89.7 fL 80-96 [facility] Erythrocyte mean corpuscular hemoglobin [Entitic mass] by Automated count 31.0 pg 27-33 [facility] Erythrocyte mean corpuscular hemoglobin concentration [Mass/volume] by Automated count 34.6 g/dL [facility]0-[facility] E[facility]th[facility] distribution width [Ratio] by Automated count 17.5 % 11.5-14.5 H [facility] Platelets [#/volume] in Blood by Automated count 241 10*3/uL 150-400 [facility] Differential cell count method - Blood [facility] Neutrophils/100 leukocytes in Blood by Automated count 73 % [facility] Lymphocytes/100 leukocytes in Blood by Automated count 9 % [facility] Monocytes/100 leukocytes in Blood by Automated count 10 % [facility] Eosinophils/100 leukocytes in Blood by Automated count 7 % [facility] Basophils/100 leukocytes in Blood by Automated count 1 % [facility] Neutrophils [#/volume] in Blood by Automated count 5.91 10*3/uL 1.8-7 .0 [facility] Lymphocytes [#/volume] in Blood by Automated count 0.70 10*3/uL 1.2-4 .0 L [facility] Monocytes [#/volume] in Blood by Automated count 0.77 10*3/uL 0-0.8 [facility] Eosinophils [#/volume] in Blood by Automated count 0.60 10*3/uL 0-0.5 H [facility] Basophils [#/volume] in Blood by Automated count 0.09 10*3/uL 0-0.2 [facility] Nucleated erythrocytes/100 leukocytes [Ratio] in Blood by Automated count 0 /100{WBCs} 0-0 [facility] ID Date Data Source [id number] 03/08/2020 02:13:40 PM EDT [facility] Name Value Range Interpretation Code Description Data Neva rce(s) Supporting Document(s) Albumin [Mass/volume] in Serum or Plasma by Bromocresol green (BCG) dye binding method 4.3 g/dL 3.5-5.2 [facility] Bilirubin.total [Mass/volume] in Serum or Plasma 0.4 mg/dL <1.2 [facility] Calcium [Mass/volume] in Serum or Plasma 9.1 mg/dL 8.8-10.2 [facility] Chloride [Moles/volume] in Serum or Plasma 94 mmol/L 98-107 L [facility] Creatinine [Mass/volume] in Serum or Plasma 0.69 mg/dL 0.70-1.20 L [facility] Glucose [Mass/volume] in Serum or Plasma 113 mg/dL 70-140 [facility] Alkaline phosphatase [Enzymatic activity/volume] in Serum or Plasma 92 U/L 40-129 [facility] Potassium [Moles/volume] in Serum or Plasma 4.1 mmol/L 3.4-5.1 [facility] Protein [Mass/volume] in Serum or Plasma 6.8 g/dL 6.4-8.3 [facility] Sodium [Moles/volume] in Serum or Plasma 127 mmol/L 136-145 L [facility] Aspartate aminotransferase [Enzymatic activity/volume] in Serum or Plasma 20 U/L <40 [facility] Urea nitrogen [Mass/volume] in Serum or Plasma 9 mg/dL 8-23 [facility] Osmolality of Serum or Plasma by calculation 263 mosm/kg 275-300 L [facility] Creatinine/Urea nitrogen [Mass Ratio] in Serum or Plasma 13 [facility] Bicarbonate [Moles/volume] in Serum 24 mmol/L 22-29 [facility] Alanine aminotransferase [Enzymatic activity/volume] in Seru m or Plasma 12 U/L <41 [facility] Anion gap 3 in Serum or Plasma 9 mmol/L 8-15 [facility] Albumin/Globulin [Mass Ratio] in Serum or Plasma 1.7 [facility] Glomerular filtration rate/1.73 sq M pre dicted among non-blacks [Volume Rate/Area] in Serum or Plasma by Creatinine-based formula (MDRD) >6 0 [facility] Glomerular filtration rate/1.73 sq M pre dicted among blacks [Volume Rate/Area] in Serum or Plasma by Creatinine-based formula (MDRD) >60 [facility] ID Date Data Source [id number] 03/08/2020 02:13:40 PM EDT [facility] Name Value Range Interpretation Code Description Data Neva rce(s) Supporting Document(s) Thyrotropin [Units/volume] in Serum or Plasma 2.920 u[IU]/mL 0.270-4. 200 [facility] ID Date Data Source [id number] 02/23/2020 02:27:00 PM EDT [facility] Name Value Range Interpretation Code Description Data Neva rce(s) Supporting Document(s) Micropolyspora Faeni AB Laboratory test result N ormal (applies to non-numeric results) [facility] ) Aspergillus Fumigatus AB Laboratory test result Normal (applies to non-numeric results) [facility] ) Aureobasidium [place] Laboratory test result N ormal (applies to non-numeric results) [facility] ([facility] ) Chaseley Serum AB Laboratory test result Normal (a pplies to non-numeric results) [facility] ([facility] ) Performed at: [facility] [address] [id number] Development Rep: Srikanth Boyce MD, Phone: [phone] Performed at: [facility] [address] [id number] Development Rep: Fouzia Zavala MD, Phone: [phone] Thermoactinomyces Vulgaris Laboratory test result Normal (applies to non- numeric results) [facility] ([facility]) Thermoactinomyces Sacchari Laboratory test result Normal (applies to non- numeric results) [facility]) ID Date Data Source [id number] 02/23/2020 02:27:00 PM EDT [facility]) Name Value Range Interpretation Code Description Data Neva rce(s) Supporting Document(s) Cytoplasmic Neutrop AB Anca-C Laboratory test result Normal (applies to non- numeric results) [facility] ([facility]) Perinuclear AB Anca-P Laboratory test result Nor mal (applies to non-numeric results) [facility] ([facility]) The presence of positive fluorescence ex hibiting P-ANCA or C-ANCA patterns alone is not specific for the diagnosis of Roberta's Granulomatosis (WG) or microscopic polyangiitis. Decisions about treatment should not be based solely on ANCA IFA results. The [employer] ANCA [employer] Consensus recommends follow up testing of positive sera with both [place]- 3 and MPO-ANCA enzyme immunoassays. As m any as 5% serum samples are positive only by EIA. Ref. AM J Clin Pathol 1999;111:507-513. Anca-Atypical Laboratory test result Normal (applies t o non-numeric results) [facility]) The atypical pANCA pattern has been obse rved in a significant percentage of patients with ulcerative colitis, primary sclerosing cholangitis and autoimmune hepatitis. ID Date Data Source [id number] 02/23/2020 02:27:00 PM EDT [facility]) Name Value Range Interpretation Code Description Data Neva rce(s) Supporting Document(s) Antinuclear Antibodies Direct Laboratory test result Normal (applies to non- numeric results) [facility] ([facility]) Sjogren's Anti SS-B Laboratory test result 0.0-0.9 Zaida l (applies to non- numeric results) [facility]) Sjogren's Anti SS-A Laboratory test result 0.0-0.9 Zaida l (applies to non- numeric results) [facility]) ID Date Data Source [id number] 02/23/2020 02:27:00 PM EDT [facility]) Name Value Range Interpretation Code Description Data Neva rce(s) Supporting Document(s) Angiotensin converting enzyme [Enzymatic activity/volu me] in Serum or Plasma 44 U/L 14-82 Normal (applies to non-numeric results) [facility]) Erythrocyte sedimentation rate by Westergren method 6 mm/hr 0-20 Normal (applies to non-numeric results) [facility]) C reactive protein [Mass/volume] in Serum or Plasma by High sensitivity method Laboratory test result 0.00-0.30 Normal (applies to non-numeric results) [facility] ([facility]) Cyclic citrullinated peptide IgG Ab [Units/volume] in Serum or Plasma 10 units 0-19 Normal (applies to non-numeric results) [facility] ([facility]) <content>Negative <20</con tent>
<content>Weak positive 20 - 39</content>
<content>Moderate positive 40 - 59</content>
<content>Strong positive >59</content>
<content></content> Rheumatoid factor [Units/volume] in Serum or Plasma Laboratory t est result Normal (applies to non-numeric results) [facility] ([facility]) ID Date Data Source [id number] 02/23/2020 12:52:00 PM EDT [facility] ([facility]) Name Value Range Interpretation Code Description Data Neva rce(s) Supporting Document(s) FVC-Pred 3.57 L [facility] ([facility]) FVC-%Pred-Pre 76 L [facility] PDFReport Laboratory test result [facility]) FVC-Pre 2.73 L [facility] ([facility]) Fev1-Pre 1.95 L [facility] ([facility]) Fev1-Pred 2.49 L [facility] ([facility]) FVC-LLN 2.69 L [facility] ([facility]) Fev1-LLN 1.75 L [facility] ([facility]) Fev1-%Pred-Pre 78 L [facility] ([facility], ) Fev6-Pred 3.30 L [facility] ([facility]) Fev6-%Pred-Pre 82 L [facility] ([facility]) Fev6-Pre 2.73 L [facility] ([facility]) Fev6-LLN 2.44 L [facility] ([facility]) Jkf2zdb-%Pred-Pre 100 % [facility] ([facility]) Eit5ygr-Yosq 71 % [facility] ([facility]) Guo6kth-Fea 71 % [facility] ([facility]) Kif5cov-EUO 61 % [facility] ([facility]) Nuy4lmv-Rui 100 % [facility] ([facility]) Foz3dsc-Dvfi 93 % [facility] ([facility]) FEFMax-Pre 3.68 L/E/sec [facility] ([facility]) Twu2fsq-%Pred-Pre 108 % [facility] ([facility]) FEFMax-Pred 6.40 L/E/sec [facility] ([facility]) FEFMax-%Pred-Pre 57 L/E/sec [facility] ([facility]) Rll8954-Ouci 1.64 L/E/sec [facility] ([facility]) FEFMax-LLN 4.21 L/E/sec [facility] ([facility]) Hsw3299-Tdt 1.38 L/E/sec [facility] ([facility]) Kks5829-XXF 0.13 L/E/sec [facility] ([facility]) Bdg4981-%Pred-Pre 84 L/E/sec [facility] ([facility]) ExpTime-Pre 5.52 sec [facility] ([facility]) Wbg4amh8-Ncyt 76 % [facility] ([facility], ) Rcz5mko5-%Pred-Pre 94 % [facility] ([facility], ) Hfi8mtb4-Dkp 71 % [facility] ) Rlq6scn9-UUJ 67 % [facility] ([facility] ) ID Date Data Source [id number] 02/15/2020 12:29:18 PM EDT [facility] Name Value Range Interpretation Code Description Data Neva rce(s) Supporting Document(s) Progress Note [facility] QPDDKf3fOmDOBaWo28/UEQezJLXvg5EgFRomMUb8JPfdIBNkK7WpSUX7lJ3qSYI1KLkGQgOlDqGhAQA2 lbm [file] ICAgICAgICAgICAgICAgICAgICAgICAgICAgICAgIC AgICAgICAgICAgICAgICAgICAgICAgICAgICAgICAgICAgDQogICAgICAgICAgICAgICAgICAgICAgIC AgICAgICAgICAgICAgICAgICAgICAgICAgICAgICAgICAgICAgICAgICAgICAgICAgICAgICAgICAgIC AgICAgICAgICAgICAgICAgDQogICAgICAgICAgICAg ICAgICAgICAgICAgICAgICAgICAgICAgICAgICAgICAgICAgICAgICAgICAgICAgICAgICAgICAgICAg ICAgICAgICAgICAgICAgICAgICAgICAgICAgDQogICAgICAgICAgICAgICAgICAgICAgICAgICAgICAg ICAgICAgICAgICAgICAgICAgICAgICAgICAgICAgIC AgICAgICAgICAgICAgICAgICAgICAgICAgICAgICAgICAgICAgDQogICAgICAgICAgICAgICAgICAgIC AgICAgICAgICAgICAgICAgICAgICAgICAgICAgICAgICAgICAgICAgICAgICAgICAgICAgICAgICAgIC AgICAgICAgICAgICAgICAgICAgDQogICAgICAgICAg ICAgICAgICAgICAgICAgICAgICAgICAgICAgICAgICAgICAgICAgICAgICAgICAgICAgICAgICAgICAg ICAgICAgICAgICAgICAgICAgICAgICAgICAgICAgDQogICAgICAgICAgICAgICAgICAgICAgICAgICAg ICAgICAgICAgICAgICAgICAgICAgICAgICAgICAgIC AgICAgICAgICAgICAgICAgICAgICAgICAgICAgICAgICAgICAgICAgDQogICAgICAgICAgICAgICAgIC AgICAgICAgICAgICAgICAgICAgICAgICAgICAgICAgICAgICAgICAgICAgICAgICAgICAgICAgICAgIC AgICAgICAgICAgICAgICAgICAgICAgDQogICAgICAg ICAgICAgICAgICAgICAgICAgICAgICAgICAgICAgICAgICAgICAgICAgICAgICAgICAgICAgICAgICAg ICAgICAgICAgICAgICAgICAgICAgICAgICAgICAgICAgDQogICAgICAgICAgICAgICAgICAgICAgICAg ICAgICAgICAgICAgICAgICAgICAgICAgICAgICAgIC CbFWFgGZPcJFDuUTKcYCFwCMGiSKPcFAVhEKWzSXEaKBVeTLVsOYAqITDzQGc2Q7kwLZPzAAGrHE5zMY d3Jz8+JOdDAuEiLWR5npNqjL6KHW0ni4XkRGywZOWva5ZtPUe2BQ9AQRDbLJgjBW5FUHipux6HTKBsZX MvbQOEs3vyEuHlACB8MMMvGawlXG8YNBSlX3hdyyEj SJFxXDMSPIxnKXRPHMHjLSRkYyHhHiCqZFWwUTStNCDBDGN4WTEnGbJxDKQrVQTtQiIuEYCEQU4QOxVs G0JbqV60BRmMFy7+EXnsbxMfEaqSHlF0SUBbu5RhSXq4TT3AIQZhEoieu0XtBtqxZLRTTWgeDW8GFZI0 TAP2PMMoIm4IYVJlB981nqAmVU9JWq3UMqQtTO7tjy 1ASzipTTJnJyqFHrb2YBmaSW9JzANbNTyDhn8zqyCrvsOZm6YrusMjbJBRCkUemMscYBBhZClnRiT7JP BZNZJzvRF9QlB6FlVsWlNnICO9AYWnPO0bYVezEF8PBCF4HOsiEHYdACLkD2xMCrXbTSGvDmEasIvoCW 0SUcBoG2SktuNbfKFpZgZkPJAXJl7+DQplbmRvYmoN JiUfLTLwMvgYNvt7RJowVG5EaEVlHJ4Axy5caQInX4TetBmaBGKxIRutboCcHl0yHRBwRZhnHQWqQJ6s O0ixF9elX2UfZBEENeJfC4CpO9AyLaSxVIG0ZSSdZKBsLIB5ZFSGEnXbF3ZoQZznAjAbZRQWCQ6TOtec HDJjVjxLHJkDW3FRNBuPCJEWNp3SZ68JQ40TBBBYFU 3UM4xQZzvlIY2+BR8FKa5OSiRpDD9lkw2HPnmgYOQiOtaWJge8KDfbNK5ZlNYhC8IfkMAdc5vOSkMhM6 WCFBB3WFRzFu8UXBMmFhAvXAPfOFpxDY4zSQAnQFXBhAfioyI1DY5VPW5pzkSrKA1SYvFpRh0bEw3DTc YdY9ZdV0HeZPWfGKGBILtxLV8WSGtzVP2hJF9Nk9AO rMIjoO6gcl1FVLKyVBJrAhnkhj9ZQeklZ0D8jDpyFKYdYjvmMWQGSAsiGQ8ZCMCdNXF5WTAvZbRdVAKI BcBkH45yLF8XW1Wdl94xWaM5NNTuJtWpUTtwFW11uMvlgiIzhVRfdHbqYF2TAf9+DQplbmRvYmoNCnhy JEWYWqUwDBIJYoFgIAOqRLMgNVTvAsO8HmZuMq3FZM MaOMRzSTOlHhJaNSDuMBReDHjdJVNxUWE4XTC1EFMoMPIgJM6KMbXhSPFkSMnoIBDcRULxRPHiik0EZG LcMHDgLBK4YjKwBSOsBRBgVVizSBXcQOAvDPBuKIExZDQsAE1YLuSjVSJpKOw2VwHmDHMaGMVpav1YNG HoTXNlSlo1ITAhPWHiDOXgKUjwKAVyEHV9DiR6CNNk YPCxHO1MAcJpXBNrBMy0XNZhOPLfCAKcpy3BNHLoHPUgJGa1FpBoLBPrHIBdDNykNFJtYYOgHKR0IFPj ABYkTZ3HEiRkDDTwGRF2CSWtBACgXTQeme0EISOzEYVvCCLsIJDmFVBnTKGcZRlfWOSbPMW9WXrsGDFp FGGpMG0BTlBxSMAfCFpgMUIjVZPeROMwvp8QGGCsRZ TwOFdzVHQlDEDyAKOoJCaxEFIoZMCpXDH2XYCvQWWaMS2LDwDpBOJhJqJpMberSPImVNGwht7QRIGxED PgWEE2FYHhZYDsZUUcYKndIYMwUZR0IPpjERZrKKWnDA4DHpYwGXXxHacjUQgdHEWiZCFmda6JTIFwNF XbSBK6EBDyOUDxOHZnNJqdHPWwFHYrJxA8ZGCdTXYt NN6OXtXsAGHeVcR7TnieCDRnUTDmoz3BLARgIOCoTYX3OjYnGNCrNWPiCUikCDXgKZUtCIo8GKPgRJJz EW4IOaHsIXYsNsR4RbmcKRUkVDWedx4YUWCsWUB5HyGoMlCvNRRhROFpGYgaEMEkDHDiYKBwPEAxFBHa YG5IYoPxXMHlSYV5GACbNPVuFLDmlh0AHVSjLXH6Rj a1XHFmARXtVLZwHYbzATZwTKF2NWM9ZZOlJZIzFM8EPoNoWZSkWNAmZMJqIFDkNBHyfz9JECYhZSQ1SR F4RVQsEZKgYGQfUHbdUPPbLQV7SLS5TYZwYNZpAW2ZPsWsRDVgNEC3QvQzCBAkFFEmdw8WRZIfQLR7Wn K3MWSpVHEuQWUyYDupZXHzTWU9UXYdZZZzKFZeAS3L CrQzRCWwHEs2AUpnHSTnSGKjnf5JnFFqyWryuu6RVReMSc3AdOkqHFKnQYgmSu1qcHDuLVJxEKQRYe8X cfPwJDLsSZDUQCzgXYMaMPi4Cgk4XFQ9BCLdYhjlVFSpI5Z1P6ZpKaV9XgvuIGZ1OzN3QxIcZXL3VVQ4 IOEzHTUnBORtRSH9TJWhYHqyMVTyGgf+TL2iRIl+Ak9Pk7XvwqY4ozBuQHr5Zuw5Kg8ZVLNEJ7KJRs== ID Date Data Source [id number] 02/14/2020 12:55:11 PM EDT [facility] Name Value Range Interpretation Code Description Data Neva rce(s) Supporting Document(s) Leukocytes [#/volume] in Blood by Automated count 9.1 10*3/uL 4-10 [facility] Erythrocytes [#/volume] in Blood by Automated count 4.35 10*6/uL 4.6- 6.1 L [facility] Hemoglobin [Mass/volume] in Blood 13.0 g/dL 13.5-18 L [facility] Hematocrit [Volume Fraction] of Blood by Automated count 37.5 % 4 1-53 L [facility] Erythrocyte mean corpuscular volume [Entitic volume] by Auto mated count 86.3 fL 80-96 [facility] Erythrocyte mean corpuscular hemoglobin [Entitic mass] by Automated count 30.0 pg 27-33 [facility] Erythrocyte mean corpuscular hemoglobin concentration [Mass/volume] by Automated count 34.7 g/[facility] width [Ratio] by Automated count 15.9 % 11.5-14.5 H [facility] Platelets [#/volume] in Blood by Automated count 239 10*3/uL 150-400 [facility] Differential cell count method - Blood [facility] Neutrophils/100 leukocytes in Blood by Automated count 74 % [facility] Lymphocytes/100 leukocytes in Blood by Automated count 9 % [facility] Monocytes/100 leukocytes in Blood by Automated count 10 % [facility] Eosinophils/100 leukocytes in Blood by Automated count 6 % [facility] Basophils/100 leukocytes in Blood by Automated count 1 % [facility] Neutrophils [#/volume] in Blood by Automated count 6.76 10*3/uL 1.8-7 .0 [facility] Lymphocytes [#/volume] in Blood by Automated count 0.78 10*3/uL 1.2-4 .0 L [facility] Monocytes [#/volume] in Blood by Automated count 0.91 10*3/uL 0-0.8 H [facility] Eosinophils [#/volume] in Blood by Automated count 0.55 10*3/uL 0-0.5 H [facility] Basophils [#/volume] in Blood by Automated count 0.09 10*3/uL 0-0.2 [facility] Nucleated erythrocytes/100 leukocytes [Ratio] in Blood by Automated count 0 /100{WBCs} 0-0 [facility] ID Date Data Source [id number] 02/14/2020 01:23:27 PM EDT [facility] Name Value Range Interpretation Code Description Data Neva rce(s) Supporting Document(s) Thyrotropin [Units/volume] in Serum or Plasma 3.100 u[IU]/mL 0.270-4. 200 [facility] ID Date Data Source [id number] 02/14/2020 01:23:27 PM EDT [facility] Name Value Range Interpretation Code Description Data Neva rce(s) Supporting Document(s) Albumin [Mass/volume] in Serum or Plasma by Bromocresol green (BCG) dye binding method 4.2 g/dL 3.5-5.2 [facility] Bilirubin.total [Mass/volume] in Serum or Plasma 0.5 mg/dL <1.2 [facility] Calcium [Mass/volume] in Serum or Plasma 9.2 mg/dL 8.8-10.2 [facility] Chloride [Moles/volume] in Serum or Plasma 95 mmol/L 98-107 L [facility] Creatinine [Mass/volume] in Serum or Plasma 0.77 mg/dL 0.70-1.20 [facility] Glucose [Mass/volume] in Serum or Plasma 82 mg/dL 70-140 [facility] Alkaline phosphatase [Enzymatic activity/volume] in Serum or Plasma 82 U/L 40-129 [facility] Potassium [Moles/volume] in Serum or Plasma 4.1 mmol/L 3.4-5.1 [facility] Protein [Mass/volume] in Serum or Plasma 6.9 g/dL 6.4-8.3 [facility] Sodium [Moles/volume] in Serum or Plasma 131 mmol/L 136-145 L [facility] Aspartate aminotransferase [Enzymatic activity/volume] in Serum or Plasma 14 U/L <40 [facility] Urea nitrogen [Mass/volume] in Serum or Plasma 11 mg/dL 8-23 [facility] Osmolality of Serum or Plasma by calculation 271 mosm/kg 275-300 L [facility] Creatinine/Urea nitrogen [Mass Ratio] in Serum or Plasma 14 [facility] Bicarbonate [Moles/volume] in Serum 24 mmol/L 22-29 [facility] Alanine aminotransferase [Enzymatic activity/volume] in Seru m or Plasma 8 U/L <41 [facility] Anion gap 3 in Serum or Plasma 11 mmol/L 8-15 [facility] Albumin/Globulin [Mass Ratio] in Serum or Plasma 1.6 [facility] Glomerular filtration rate/1.73 sq M pre dicted among non-blacks [Volume Rate/Area] in Serum or Plasma by Creatinine-based formula (MDRD) >6 0 [facility] Glomerular filtration rate/1.73 sq M pre dicted among blacks [Volume Rate/Area] in Serum or Plasma by Creatinine-based formula (MDRD) >60 [facility] ID Date Data Source [id number] 02/03/2020 12:49:30 PM EDT [facility] Name Value Range Interpretation Code Description Data Neva rce(s) Supporting Document(s) Progress Note [facility] FBNKEf9mLqGPPmAs55/FGUgqEJYrf9VdOKsoZZd8RMitDJOxA7TjDXP6jX9aKOJ4XAnFPhMmHyTrULP2 lbm [file] [id number]eTFQpYvNA4CXKy= ID Date Data Source [id number] 02/03/2020 12:49:25 PM EDT [facility] Name Value Range Interpretation Code Description Data Neva rce(s) Supporting Document(s) Progress Note [facility] ZVFFVu3fGxVDDhIe07/SDBjeXSRow7VkBAgxVYm5RWwhXAVyV5UtUDM8dG0gRDV4YTzLCqCmGiGiXUM6 lbm WeTqkYPlZnEXCeWkcBYcPrKSvrGsofrQTaRA0AuND3YWDrS26oFKYsCKBrM8PpSVYpGSP+Cm4BCDXesA WtHF8CPwsU5V6fh8j0Iv7+M/kkKJG7t4PRIfW08do3MWy3Hwek38tJ12c7Y5TAJcFGAV2EHKV//ZEEKH H10VIFVuCO9t7oT5WcJyfhCGsPTN4B/Od/bODahmGw /N/8j06g3JiW/qyCJz1blvSm6v/aDaAAHVzFrA2vt1v51qmly0loncJqehw2dNRCmxdMzW65KWkpHGi7 lVzYbJW6UX+N1NRfjRjjc9bwtAokj1HhKT9MKh+jdhS494bjOsmVc/meBtOQaSTOuWOuiXOdhIVbaYvF R2wDqaiJmB7jNM167zT9+fDNZpfNTXKufjZrq7uCsu l39RKoomKqMZE1NsWhiHspoYm5zcN+oIy5evM7MoUrskJHqY5Kt+LvOgdd9WrN+T6q7tKq9hYgTLb7HZ EIIEvxfPNylNPwaXmGUtAOpmQhsm6d+Bwop9ea05f8fj8gOPtc4yIc77Uu+0SxHM+vSMr803ljHKs8Py YbxjhSlh7T7mJfSKF564+uzBdzQhsdRbmNoXd3ZCIY roTwhMnOR+9OjtjZoXYuSmWHR/0SJM7pn79BQk8S3cj/nwdynoSdQk5juEGMtOq6ba58bv6iJmwTVq3h 77q60EMvMMz0MP9+m4xYW9DWqFTkG6JShNAOqaNpCZ1xkCDHZNNsLkd3E0cSi4uR0kUJYs1InI6I+t6A 4aAFRBD8k5VPVroLdwnilhAxzyoKWO8DygXCOjSuxR cFJnurh76BnUywUaAvVInrz8DSeS/+KwSH0xbknZkHwbWTR/pqBgqTd3vQI/[place]/r4jkGT9fowKN05KM [file] AgICAgICAgICAgICAgICAgICAgICAgICAgICAgICAgICAgICAgICAgICAgICAgICAgICAgICAgICAgIC AgICAgICAgICAgICAgICAgICAgICAgICAgICAgICAgICAgICAgICANCiAgICAgICAgICAgICAgICAgIC AgICAgICAgICAgICAgICAgICAgICAgICAgICAgICAg ICAgICAgICAgICAgICAgICAgICAgICAgICAgICAgICAgICAgICAgICAgICAgICAgICANCiAgICAgICAg ICAgICAgICAgICAgICAgICAgICAgICAgICAgICAgICAgICAgICAgICAgICAgICAgICAgICAgICAgICAg ICAgICAgICAgICAgICAgICAgICAgICAgICAgICAgIC ANCiAgICAgICAgICAgICAgICAgICAgICAgICAgICAgICAgICAgICAgICAgICAgICAgICAgICAgICAgIC AgICAgICAgICAgICAgICAgICAgICAgICAgICAgICAgICAgICAgICAgICANCiAgICAgICAgICAgICAgIC AgICAgICAgICAgICAgICAgICAgICAgICAgICAgICAg ICAgICAgICAgICAgICAgICAgICAgICAgICAgICAgICAgICAgICAgICAgICAgICAgICAgICANCiAgICAg ICAgICAgICAgICAgICAgICAgICAgICAgICAgICAgICAgICAgICAgICAgICAgICAgICAgICAgICAgICAg ICAgICAgICAgICAgICAgICAgICAgICAgICAgICAgIC AgICANCiAgICAgICAgICAgICAgICAgICAgICAgICAgICAgICAgICAgICAgICAgICAgICAgICAgICAgIC AgICAgICAgICAgICAgICAgICAgICAgICAgICAgICAgICAgICAgICAgICAgICANCiAgICAgICAgICAgIC AgICAgICAgICAgICAgICAgICAgICAgICAgICAgICAg ICAgICAgICAgICAgICAgICAgICAgICAgICAgICAgICAgICAgICAgICAgICAgICAgICAgICAgICANCiAg ICAgICAgICAgICAgICAgICAgICAgICAgICAgICAgICAgICAgICAgICAgICAgICAgICAgICAgICAgICAg ICAgICAgICAgICAgICAgICAgICAgICAgICAgICAgIC AgICAgICANCiAgICAgICAgICAgICAgICAgICAgICAgICAgICAgICAgICAgICAgICAgICAgICAgICAgIC AgICAgICAgICAgICAgICAgICAgICAgICAgICAgICAgICAgICAgICAgICAgICAgICANCjw/jPJaJ8ihdU EtznF7X7fbIp0JTn5KZQ5tm7OxCRAyVZebpzNsTqqW GbSvRFJmNtnGXmp2DCccSD5RbJQzW8CoJ5NzVUhhLE1QTOOuDFPxlTQtOQCpCIStPsP6CJAmDZueJJ0P kWVyZAwvTCZsGLFtKDSjOEBmOJEvWYSXDBIfAZZiPuItNVEeMEMdLWEmBBOTJXM6EBJwHnOwPFLqSQXs GtSzWBGVFS9KAwErD3UgjR92WVxOQc4+DQplbmRvYm bIHiP6PTTsa0WcFWt1MQ5PXXRaHmhak2GyPRWhSFZJWMuyPO0RTQO6VXEgVXHyDj1OUFLrE539myVeCX 5RFt6JOnCbEK1ioo3QKEIqUPCtIfrICsu4CWojOZ7EuUAuMPjAam0mfmGvriZJz2FmjfMhbUXXMbKvtE gzQTKdMYoxByD1SRLHAFEljVC0HyvrEzEwOLMuJctu SOPLZZmPKlLuU9Oav8EhKyU1FTPrYkXpIEdtBASrRzQ2EU18uPscUQ8DZROrISHiAC57EUX6RKAkLh4X Fg2OZcXiFE6gmz5BRyLhXZ1ymx1BCNqEXcTvF1O6mXNgV4Zops12UC1WdNX5eJTzBO1QtI4fQG5Ov5Cf PNZvEbYwPNQlLLZxXZUbJRDiEhQlKQ6KCGTuWrBtnK DcSMZqWFC0OSQtWyJ0OULaLU2EOZUpQUY3LP0WOU5DUsazM7LRITnjpUuqAcFGZCW/QUNUSVZJVFkmTV GmT80DS1PXTOiPJhxtXTcVMgcjIb7yVJv+Rf6QZS0mi5PtEIv5ZFGtML5azb9TPAsZSuNvP9E4iRAfP2 U6SZviVz5IGDWxQKAyHkcoFQUNJQniAR9OHN8sqnP1 SP1GyGJvLJNnROHyqTHzBIv0X30tbBKiFFzkXO2XDNA+Delbert+Sv8HCFIaBRRhLCSuQqJwVAZFTwAnL3Sn L6FAl4MgG1PtGO53cDptszMuQFyzEV2BDO2pVMXnIPHKNY5ZhVUfpI4sztQrKEMtRYFMStVdG41ztSRg JLJsBIN8EOHtXn8HLSPnX7QkdnUjvHdggvKoXGCnVV TAXV1SDFeyxrHccSEqcMhuLH41kNhpJG0TZr6RYbVbYA5clw0LcJJyLd8TZPY1Wv2XIQTiRXJdHQYzHQ R4KSVzTlJoUMmnKXEqAAPgLSO8AIBzMOPkPM3YGkYjCDHfNGW5CEVoMQMbWFPygs9QBZJsGTP1LJK9YX AdMPUwQJYiJYgtNJYbPXSoIMK0JDIoDEFrSZ4YFxCo MOIwIFW5LAZiKHZbLEPzme7ZITWyZWB2BSH7WuSdCFBuIZCeLIdtXODmNTPbNGIvTIUxGQOsVR4UInRj LFRnFYosSiElMDTrDYJrln0DIATqMYCpRWMsFaAnWYCtSCHsDZoyEPUoNGBvMQJwONDyGKJxDB6CUkOr VMVgBWVoRCqiIXPwMREtya4UGOPmOOBvRIc7QtBkHA MyTOKtRTrsGURuTVL6LZG8IXPyAUHtOG6WNgCxOAAbLIetCmffWFJlPPJcep2MLWLgDDDxJVI5LOSrKD DnURLtQRexLKPgSPSjUIrqNWFcJZQzLU4VLkEzODQgHhTmCaubYFNrKTLthx9FCOCkXFLgETK5EwNiVL VyVAOuJQrnPSBdSJQ3LtBbSVPsWKAtOA5KWfQkIKJh IkniIDFvTXExWLLuwa7QGXTqYUCtVZAzOjOfSFToMHNfUWzjPDObQHU1ULN8OSNdTMJzFH0GBqPnACFu YsAlAnOpBJPuEWGajt3TPDKyTDPsIXZcZhRoPUXwTXRsYZdxDTJhYDMnTeM0BFHkXTLtSN4YTbQrVSXi PkF1FGCjCURpJARouf7WNZUhZIQaNkP3ROVkPBWpKP JsTBylAJFdPLAkHZSuAHEkORDiYQ4IOdOdCCBvOyI0MQJhWURrXTAjry3RXFPrVSC1AMW3CVZlDBNhBX ZrTQkdDZDgHIV2YRV2TNWuJJEdDN6HBeUnVVLbAVD6YTSpPNEgAMDphp9XQUShFRD1DXg4WFRdRSZhEO YxCBfeJCIkHSC5LKQkIAHgXVWhYZ3IEtOcLXLyXIAa GCOtVAWqOYMntl4YXWIaMSG9JsR9VyZrGLXsGFPuKPbrWPNpMOR0OTGpOOIcQNUrVF7OSzRhGFPuKGR0 XrvjPFTtCITkix7OHMBvAJT4RDOyYHKeXZJdGKCuQDpqQLZkBLD0OHObDSLqUABfBK6WEsBaKOFdOAh3 DnckEMDxCALjrm0KgGIskVajyy8LWBrYDl2BwEogSY NvMOsmWo0jeDF1ABGeKYNTYu0PvaEcWJZbOBSWGBzwIIBzTHCoBKpyFjKrMINpQiE4AGaeMfBdLZG8SR TaK5DxVkj9WhZ3AITiEXCyUmJ4QGEjTZCiLvVkGzG7ErW9EXWwERTaJfB+JS9cQRc+Kd1Mn8PloxN9rx WoEIy3VFi8Bp9VHHPWR6FLAl== ID Date Data Source [id number] 01/24/2020 01:37:30 PM EDT [facility] Name Value Range Interpretation Code Description Data Neva e(s) Supporting Document(s) Leukocytes [#/volume] in Blood by Automated count 8.3 10*3/uL 4-10 [facility] Erythrocytes [#/volume] in Blood by Automated count 4.23 10*6/uL 4.6- 6.1 L [facility] Hemoglobin [Mass/volume] in Blood 12.5 g/dL 13.5-18 L [facility] Hematocrit [Volume Fraction] of Blood by Automated count 36.1 % 4 1-53 L [facility] Erythrocyte mean corpuscular volume [Entitic volume] by Auto mated count 85.4 fL 80-96 [facility] Erythrocyte mean corpuscular hemoglobin [Entitic mass] by Automated count 29.6 pg 27-33 [facility] Erythrocyte mean corpuscular hemoglobin concentration [Mass/volume] by Automated count 34.7 g/dL 32.0-36.0 [facility] Erythrocyte distribution width [Ratio] by Automated count 14.6 % 11.5-14.5 H [facility] Platelets [#/volume] in Blood by Automated count 224 10*3/uL 150-400 [facility] Differential cell count method - Blood [facility] Neutrophils/100 leukocytes in Blood by Automated count 77 % [facility] Lymphocytes/100 leukocytes in Blood by Automated count 8 % [facility] Monocytes/100 leukocytes in Blood by Automated count 9 % [facility] Eosinophils/100 leukocytes in Blood by Automated count 5 % [facility] Basophils/100 leukocytes in Blood by Automated count 1 % [facility] Neutrophils [#/volume] in Blood by Automated count 6.35 10*3/uL 1.8-7 .0 [facility] Lymphocytes [#/volume] in Blood by Automated count 0.68 10*3/uL 1.2-4 .0 L [facility] Monocytes [#/volume] in Blood by Automated count 0.75 10*3/uL 0-0.8 [facility] Eosinophils [#/volume] in Blood by Automated count 0.42 10*3/uL 0-0.5 [facility] Basophils [#/volume] in Blood by Automated count 0.07 10*3/uL 0-0.2 [facility] Nucleated erythrocytes/100 leukocytes [Ratio] in Blood by Automated count 0 /100{WBCs} 0-0 [facility] ID Date Data Source [id number] 01/24/2020 02:14:47 PM T [facility] Name Value Range Interpretation Code Description Data Neva rce(s) Supporting Document(s) Albumin [Mass/volume] in Serum or Plasma by Bromocresol green (BCG) dye binding method 4.2 g/dL 3.5-5.2 [facility] Bilirubin.total [Mass/volume] in Serum or Plasma 0.5 mg/dL <1.2 [facility] Calcium [Mass/volume] in Serum or Plasma 9.0 mg/dL 8.8-10.2 [facility] Chloride [Moles/volume] in Serum or Plasma 96 mmol/L 98-107 L [facility] Creatinine [Mass/volume] in Serum or Plasma 0.78 mg/dL 0.70-1.20 [facility] Glucose [Mass/volume] in Serum or Plasma 81 mg/dL 70-140 [facility] Alkaline phosphatase [Enzymatic activity/volume] in Serum or Plasma 91 U/L 40-129 [facility] Potassium [Moles/volume] in Serum or Plasma 3.8 mmol/L 3.4-5.1 [facility] Protein [Mass/volume] in Serum or Plasma 6.8 g/dL 6.4-8.3 [facility] Sodium [Moles/volume] in Serum or Plasma 132 mmol/L 136-145 L [facility] Aspartate aminotransferase [Enzymatic activity/volume] in Serum or Plasma 12 U/L <40 [facility] Urea nitrogen [Mass/volume] in Serum or Plasma 10 mg/dL 8-23 [facility] Osmolality of Serum or Plasma by calculation 272 mosm/kg 275-300 L [facility] Creatinine/Urea nitrogen [Mass Ratio] in Serum or Plasma 13 [facility] Bicarbonate [Moles/volume] in Serum 25 mmol/L 22-29 [facility] Alanine aminotransferase [Enzymatic activity/volume] in Seru m or Plasma 10 U/L <41 [facility] Anion gap 3 in Serum or Plasma 11 mmol/L 8-15 [facility] Albumin/Globulin [Mass Ratio] in Serum or Plasma 1.6 [facility] Glomerular filtration rate/1.73 sq M pre dicted among non-blacks [Volume Rate/Area] in Serum or Plasma by Creatinine-based formula (MDRD) >6 0 [facility] Glomerular filtration rate/1.73 sq M pre dicted among blacks [Volume Rate/Area] in Serum or Plasma by Creatinine-based formula (MDRD) >60 [facility] ID Date Data Source [id number] 01/24/2020 02:14:47 PM [facility] Name Value Range Interpretation Code Description Data Neva rce(s) Supporting Document(s) Thyrotropin [Units/volume] in Serum or Plasma 3.590 u[IU]/mL 0.270-4. 200 [facility] ID Date Data Source [id number] 01/24/2020 02:36:23 PM [facility] Value Range Interpretation Code Description Data Neva rce(s) Supporting Document(s) Ferritin [Mass/volume] in Serum or Plasma 23 ng/ml 30-400 L [facility] ID Date Data Source [id number] 01/24/2020 02:36:23 PM [facility] Value Range Interpretation Code Description Data Neva rce(s) Supporting Document(s) Iron [Mass/volume] in Serum or Plasma 105 ug/dl 59-158 [facility] Transferrin [Mass/volume] in Serum or Plasma 306 mg/dL 200-360 [facility] Iron binding capacity [Mass/volume] in Serum or Plasma 425 ug/dl 228 -428 [facility] Iron saturation [Mass Fraction] in Serum or Plasma 25.0 % 20-55 [facility] ID Date Data Source [id number] 01/13/2020 11:13:28 AM EDT [facility] Name Value Range Interpretation Code Description Data Neva rce(s) Supporting Document(s) Progress Note [facility] WFZUSu1qKzZHEcYe01/EQCemIJKwk2BaPHrlIEe9SIsxIKDuJ0AeMRD1cW5mYUK3IDnESdNhQbZcEjQ9 lbm [file] GYJrEFQdINLrHpx8QQMxZwG+UQ1yICs+Cg1Vz5NpiiZ1voOlDPhuJQK1CP8IPNKUL3YNZd== ID Date Data Source [id number] 01/13/2020 11:13:23 AM EDT [facility] Name Value Range Interpretation Code Description Data Neva rce(s) Supporting Document(s) Progress Note [facility] VBMICl2gCnDXHgOy63/PBWkzWCZqo3HjBKbmPCp0YRkkUOCqA1XzQXU5dW9eVAA7ZXmUBaQtLhZgNiD0 lbm [file] y5+w0hM54mAg8pQUlO6jogIO5oJirCC0Crbr/xV5Lmd1bEip3mU3/x6l7BmlUH3npYb/Pt+dzv+evp marketing+[place] [file] 9+wP0P/DyLiqQlmrbyjeAM34NTF7OWhTYiR1IMsfDVzobQvK4//BKuTDzg2O+u7YImT8/Ann-Marie+Ofb9y84 5rl55X/Qgltql8Wffq6n+7P+NUe/2x99//ePevBfru tfs/7Bg5t9y8OnMXXc8/9374obMzn/i0V5CJ30xvI720r1G0zSk1qpjwx1zvDcdVApf6o/PF//V+2BsM Zz/+8D74pMlv8jlQgDN06qkjmgx2o19Sgcz5KDToj7S1YMlWCTL+S2ApeKdxRg5Tn6OYJ+/4bND0BHa9 3scX+7gAvt31K6z97zzyuX0z0jye66T3cP0UDe4j7v [file] 0gDQo+Jt3Ix9MkhnP2uwEiEBk8LEw2Xq7XKJYIU4UKNk== ID Date Data Source [id number] 01/03/2020 12:24:31 PM EDT [facility] Name Value Range Interpretation Code Description Data Neva rce(s) Supporting Document(s) Leukocytes [#/volume] in Blood by Automated count 6.0 10*3/uL 4-10 [facility] Erythrocytes [#/volume] in Blood by Automated count 3.98 10*6/uL 4.6- 6.1 L [facility] Hemoglobin [Mass/volume] in Blood 11.8 g/dL 13.5-18 L [facility] Hematocrit [Volume Fraction] of Blood by Automated count 34.4 % 4 1-53 L [facility] Erythrocyte mean corpuscular volume [Entitic volume] by Auto mated count 86.5 fL 80-96 [facility] Erythrocyte mean corpuscular hemoglobin [Entitic mass] by Automated count 29.8 pg 27-33 [facility] Erythrocyte mean corpuscular hemoglobin concentration [Mass/volume] by Automated count 34.4 g/dL 32.0-36.0 [facility] Erythrocyte distribution width [Ratio] by Automated count 14.1 % 11.5-14.5 [facility] Platelets [#/volume] in Blood by Automated count 211 10*3/uL 150-400 [facility] Differential cell count method - Blood [facility] Neutrophils/100 leukocytes in Blood by Automated count 72 % [facility] Lymphocytes/100 leukocytes in Blood by Automated count 11 % [facility] Monocytes/100 leukocytes in Blood by Automated count 12 % [facility] Eosinophils/100 leukocytes in Blood by Automated count 4 % [facility] Basophils/100 leukocytes in Blood by Automated count 1 % [facility] Neutrophils [#/volume] in Blood by Automated count 4.31 10*3/uL 1.8-7 .0 [facility] Lymphocytes [#/volume] in Blood by Automated count 0.68 10*3/uL 1.2-4 .0 L [facility] Monocytes [#/volume] in Blood by Automated count 0.73 10*3/uL 0-0.8 [facility] Eosinophils [#/volume] in Blood by Automated count 0.22 10*3/uL 0-0.5 [facility] Basophils [#/volume] in Blood by Automated count 0.05 10*3/uL 0-0.2 [facility] Nucleated erythrocytes/100 leukocytes [Ratio] in Blood by Automated count 0 /100{WBCs} 0-0 [facility] ID Date Data Source [id number] 01/03/2020 01:03:35 PM EDT [facility] Name Value Range Interpretation Code Description Data Neva rce(s) Supporting Document(s) Albumin [Mass/volume] in Serum or Plasma by Bromocresol green (BCG) dye binding method 3.9 g/dL 3.5-5.2 [facility] Bilirubin.total [Mass/volume] in Serum or Plasma 0.3 mg/dL <1.2 [facility] Calcium [Mass/volume] in Serum or Plasma 8.5 mg/dL 8.8-10.2 L [facility] Chloride [Moles/volume] in Serum or Plasma 100 mmol/L 98-107 [facility] Creatinine [Mass/volume] in Serum or Plasma 0.73 mg/dL 0.70-1.20 [facility] Glucose [Mass/volume] in Serum or Plasma 87 mg/dL 70-140 [facility] Alkaline phosphatase [Enzymatic activity/volume] in Serum or Plasma 77 U/L 40-129 [facility] Potassium [Moles/volume] in Serum or Plasma 3.6 mmol/L 3.4-5.1 [facility] Protein [Mass/volume] in Serum or Plasma 6.3 g/dL 6.4-8.3 L [facility] Sodium [Moles/volume] in Serum or Plasma 135 mmol/L 136-145 L [facility] Aspartate aminotransferase [Enzymatic activity/volume] in Serum or Plasma 14 U/L <40 [facility] Urea nitrogen [Mass/volume] in Serum or Plasma 13 mg/dL 8-23 [facility] Osmolality of Serum or Plasma by calculation 279 mosm/kg 275-300 [facility] Creatinine/Urea nitrogen [Mass Ratio] in Serum or Plasma 17 [facility] Bicarbonate [Moles/volume] in Serum 25 mmol/L 22-29 [facility] Alanine aminotransferase [Enzymatic activity/volume] in Seru m or Plasma 11 U/L <41 [facility] Anion gap 3 in Serum or Plasma 10 mmol/L 8-15 [facility] Albumin/Globulin [Mass Ratio] in Serum or Plasma 1.6 [facility] Glomerular filtration rate/1.73 sq M pre dicted among non-blacks [Volume Rate/Area] in Serum or Plasma by Creatinine-based formula (MDRD) >6 0 [facility] Glomerular filtration rate/1.73 sq M pre dicted among blacks [Volume Rate/Area] in Serum or Plasma by Creatinine-based formula (MDRD) >60 [facility] ID Date Data Source [id number] 01/03/2020 01:03:35 PM [facility] Name Value Range Interpretation Code Description Data Neva rce(s) Supporting Document(s) Thyrotropin [Units/volume] in Serum or Plasma 5.900 u[IU]/mL 0.270-4. 200 H [facility] ID Date Data Source [id number] 01/03/2020 02:51:49 PM [facility] Name Value Range Interpretation Code Description Data Neva rce(s) Supporting Document(s) Thyroxine (T4) free [Mass/volume] in Serum or Plasma 1.28 ng/dL 0.93- 1.70 [facility] ID Date Data Source [id number] 01/03/2020 03:20:46 PM [facility] Name Value Range Interpretation Code Description Data Neva rce(s) Supporting Document(s) Triiodothyronine (T3) [Mass/volume] in Serum or Plasma 83.50 ng/ dL 80.00-200.00 [facility] ID Date Data Source [id number] 12/29/2019 04:35:34 PM [facility] CT THORAX WITH CONTRAST [id number] RESUL TInterpreted by:Silverio Patel, MDPROCEDURE INFORMATION: Exam: CT Chest With Contrast Exam date and time: 12/27/2019 2:31 PM Age: 84 years old Clinical indication: 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; Condition or disease; Lung condition and disease; Cancer of the lung; Follow-up oncological assessment; No known metastasis; Current or recent treatment: Chemotherapy; Additional info: Reassessment of disease progrwession TECHNIQUE: Imaging protocol: Computed tomography of the chest with intravenous contrast. Radiation optimization: All CT scans at this facility use at least one of these dose optimization techniques: automated exposure control; mA and/or kV adjustment per patient size (includes targeted exams where dose is matched to clinical indication); or iterative reconstruction. Contrast material: OMNIPAQUE 300; Contrast volume: 50 ml; Contrast route: IV; COMPARISON: CT THORAX WITH CONTRAST [id number] 09/12/2019 4:56 PM FINDINGS: Tubes, catheters and devices: There is left subclavian Port-A-Cath with tip at the level of the cavoatrial junction. Lungs: There is mild centrilobular emphysema. There are some scattered linear areas of subpleural atelectasis or scarring. Honeycombing is noted peripherally within the lower lungs. There is stable spiculated right upper lobe pleural-based mass. There is stable spiculated broad based pleural-based mass peripherally within the right upper lobe. Anteriorly within the right upper lobe there is also a smaller pleural-based mass also spiculated. Within the right lower lobe there is pleural-based area of scar-like change with some nodularity noted along the pleural surface also stable. No new nodules or masses. Stable tiny subpleural nodule within the lingula. There is a small area of linear subpleural scarring within the left lower lobe. There is mild peripheral bronchiectasis within right lower lobe. Pleural space: Stable right-sided pleural thickening. Heart: There are coronary arterial calcifications. Aorta: Unremarkable. No aortic aneurysm. 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 Lymph nodes: Stable numerous prominent mediastinal lymph nodes are noted the largest is near the level of the jd measuring about 16 mm, previously measured similar. Gallbladder and bile ducts: There is a large gallstone. Stomach and bowel: Status post gastric pull-through procedure. There is a large amount of stool within the visualized colon indicating a degree of constipation. Bones/joints: Stable chronic deformities of right ribs may be related to remote trauma or post radiation changes. There is a new chronic appearing moderate T8 compression fracture. No retropulsed bone fragment. Stable chronic right rib fracture Soft tissues: Unremarkable. Other findings: Stable partially imaged peripherally calcified mass noted within the upper abdomen mesentery. IMPRESSION: 1. Numerous stable pleural based masses within the right lung. Stable areas of pleural thickening right lung. Findings are consistent with patient's history of neoplasia. 2. Stable scattered prominent mediastinal lymph nodes. 3. Stable tiny subpleural nodule within the lingula.[facility] chest imaging society guidelines do not apply to this patient who has a known malignancy. 4. Pulmonary fibrosis. 5. Stable indeterminate peripherally calcified mass within the upper abdomen mesentery. 6. Cholelithiasis. 7. There is a new although chronic appearing moderate T8 compression fracture. A pathologic fracture cannot entirely be excluded. MRI correlation may be useful. THIS DOCUMENT HAS BEEN ELECTRONICALLY SIGNED BY SILVERIO PATEL MDThis document has been electronically signed by Silverio Patel MD on 12/29/2019 4:35 PM Name Value Range Interpretation Code Description Data Neva rce(s) Supporting Document(s) ID Date Data Source [id number] 12/18/2019 12:08:23 PM [facility] Name Value Range Interpretation Code Description Data Neva rce(s) Supporting Document(s) Progress Note [facility] BSQEXs4mMbIQKmLu42/IUCzjDCUck2YkVLahPSl8AXcvOBWnL5HmQYH3dT2jWEV9YBdCPeWjIvYdVlDg lbm [file] AgICAgICAgICAgICAgICAgICAgICAgICAgICAgICAgICAgICAgICAgICAgICAgICAgICAgICAgICAgIC AgICAgICAgICAgICAgICAgICAgICAgICAgICAgICAgICANCiAgICAgICAgICAgICAgICAgICAgICAgIC AgICAgICAgICAgICAgICAgICAgICAgICAgICAgICAg ICAgICAgICAgICAgICAgICAgICAgICAgICAgICAgICAgICAgICAgICAgICANCiAgICAgICAgICAgICAg ICAgICAgICAgICAgICAgICAgICAgICAgICAgICAgICAgICAgICAgICAgICAgICAgICAgICAgICAgICAg ICAgICAgICAgICAgICAgICAgICAgICAgICANCiAgIC AgICAgICAgICAgICAgICAgICAgICAgICAgICAgICAgICAgICAgICAgICAgICAgICAgICAgICAgICAgIC AgICAgICAgICAgICAgICAgICAgICAgICAgICAgICAgICAgICANCiAgICAgICAgICAgICAgICAgICAgIC AgICAgICAgICAgICAgICAgICAgICAgICAgICAgICAg ICAgICAgICAgICAgICAgICAgICAgICAgICAgICAgICAgICAgICAgICAgICAgICANCiAgICAgICAgICAg ICAgICAgICAgICAgICAgICAgICAgICAgICAgICAgICAgICAgICAgICAgICAgICAgICAgICAgICAgICAg ICAgICAgICAgICAgICAgICAgICAgICAgICAgICANCi AgICAgICAgICAgICAgICAgICAgICAgICAgICAgICAgICAgICAgICAgICAgICAgICAgICAgICAgICAgIC AgICAgICAgICAgICAgICAgICAgICAgICAgICAgICAgICAgICAgICANCiAgICAgICAgICAgICAgICAgIC AgICAgICAgICAgICAgICAgICAgICAgICAgICAgICAg ICAgICAgICAgICAgICAgICAgICAgICAgICAgICAgICAgICAgICAgICAgICAgICAgICANCiAgICAgICAg ICAgICAgICAgICAgICAgICAgICAgICAgICAgICAgICAgICAgICAgICAgICAgICAgICAgICAgICAgICAg ICAgICAgICAgICAgICAgICAgICAgICAgICAgICAgIC ANCiAgICAgICAgICAgICAgICAgICAgICAgICAgICAgICAgICAgICAgICAgICAgICAgICAgICAgICAgIC AgICAgICAgICAgICAgICAgICAgICAgICAgICAgICAgICAgICAgICAgICANCjw/aFMlM2yrmMHxhqO8Z2 qeOt5LYj5YYF7ex1VaDSHsELbyjlNuTaaQFaUrLDBe BtjNBae7RIhtPQ0AaZMvA3UvG1CnITosNS3WFUOeKCRiiLXtUPVzABDfSrL8FXMwJGkxJC8IuXKrQUbn MKMiITPoHG4HSNHaO156cxUwKR3MFt9THuZnGU7dyh3TLFldQYAxIynOTgd8LYwxCX2BkJVciVSfMJXj FANJVkQtY6ehs6PbDnWaOBKFERgaYG1Gp8WpiWMrUI o+Wn6OBX5by9FeFAhpAUVuIJ7cue9SLLnHXpYkQ8CsiPyeMJIdc3isWEWeWM8qhLMxNVR6OLI6MAUqOL 7xSVOJblF0vFUyflbqSUZpSVYyCz5pNX1jOVKuIYObIxT6GMPUHT0PJLBuFPHvaVBcBWInZJDAHI8YPA abRFO1MFAwllDzuAGbUBrsUE9FILXtvkJnCKohSVWW DQo+Ln7JSR6pu4EvJGdoPLItXO3uoy5SXPxOTnWoL4F9zCZgL6U1CFnpHp5TPZQbUBVhRNvjTZMMNCfx PX6MVQ7ewoS0LJ6CkHZpEBXqZNWqrHEzNGg6V73lyYVuUEoqQR7XZUV+Delbert+Fs4KCYDbAIJaMIPtCzIv KIDVYuVtM8XbQ2CQb2YkN5GnNS50iRwivfCaZQqfGH 7EFW4jUHFqTMHUYS9MnEXdjM8kjfCjICXlDWXRGdZwS73gqPJnBYIuIXD9ACEsCc3CLBOcC7GxkrWveH xfwwTzNMSaAYHAGR0EIJfhzlGijQDtvUpnEL32zAlxNK4ESw6VKiAbBR1cya1GhHHmUv5QMAUoWy7JDS GfOBYoXVMnKYB8OTJtYfOlWIayRQRgBIZzSDH9GDUs JIWqUE1SUyMmEVJwPPzhAlTkFCAwTLPpie3QBEZzGRZtJMm2FEWcSUWwLJQgRUyiEXSyGYEiZCW1KJHa UOPvFJ7TTeTkFNEzVUP8XFxzRCQnMQFhgx0BDXAnLAGtYmP1BqJoFQZyEROkTDtgCAUeARZgRFDmNLEl ZRLqOM2OXzSzCFMpVLXnKRnhVHSfDXWuwd1NCTTfLG UzHpSgMVLhGZZyOQQrRRprPQTiYDV8Fob9UHXhLUCcFL0SJpBxEAHeVBA9FHfkLYUaVNJtcz5TVSCgBT BtRVt2DHPvUHSkMELiUZniXPAlCPQ1FVQcWRZpQTZvSX0QWcCgCITjCHB3NAEoOBKeBZZnud8QIUZfUQ SeZlS1KPMpQIAfBNHkBGalSHWnJVU4CQq8EPJeRRJs BH5RGeFkQXJdNTulEXOaBJDqSERxxj0NDBKhFJVlYbA3FEPvVVDkNOVrCVktSZVtAQW1AXq9ZDJpWTDe OP1INzWtQUPhAEt1NDYfUXMdQVVduz5CYEXxODHtZMEfPzIvSPAbAWXvOKf3ltOhpGUwPXj0SZ2DL9Ru tjDgAdEKVn7Tt432MVJpWCSzHu5TY4aqYr9zPAQlBE JUGm8REHy3EHtaNybaLUtwHLRnGPY5ClC1IVCsEVs7KIE5LKZcPkH+SPj5ZNHoY9DcDNA0DTZsGdAoUy VjZ4D0DRhfWeM2CQIsSA3mSVELTz2+BFwnpYDjjIhvBCAJYyD6CrT7BQdgCSHQYw4G ID Date Data Source [id number] 12/13/2019 01:45:39 PM [facility] Name Value Range Interpretation Code Description Data Neva rce(s) Supporting Document(s) Progress Note [facility] YBZQSe9iZpGMSqOm07/VOGtqXSYmx4NtEEjvSTe4LVpeBQAuP1QcVSR2lI4gRBW7NZaTTjYbYvSnYtF4 lbm ZeAxtEJvBfMUTlFimZJqQrLWydWrgirWOdVB4JvBZ6IKCzJ57uOCQaNQUxF1FsTFVyWYE+Ro6JKXSauL DqFU3NRbvZ5A71a3lIEm+/QL/TRwHy6BBR6AGqAEpGwuIiQr4yQ2wrd/pAV0Lk8sEJdioxgb/Kf5dQq8 zN0NymPMSutWUZIfmnHtktx6Zv+6CE0H/+JQaubRiG aM0KD93fkqYj/K17at6zfjmH/LP3Vb9hqsBf/BA59CQcD6CeBSbjUNSWB7VwaMFgGHlAY47lmUW81dji WrCzKkeGeEDJwkDqIX54wJeFIaptZogo+XMx/KNoDcC1lftDf6Arxwu7iVJDwxvEqzdKb8kZeRujT9YB xE022wpGinzLW02gNrd6tLFNtIWAhPrg7EfwRjmcga d+KpfYTEZjoYXtP34jMMAlXi2g4CcAznRIvm6jIMkVNYey2FVLdq+mynMdPXSu1pGgDjLSDaXC6UNVOL KsucMNogTKXn4tWQnPaa0QwN02/tfevtbqeIaC0k/6lYiNL3BbGRHrkB8gniK1Bf0Z5fuMoipQ1SAEb7 v5jjDWOc1mDVr8Eb8EvfwH8G51AXlZaaMSjH41eAEl BQE9YMh3IyhY6AfKyZ6p/EU5fCUVzvPHoVqbG/58wq9xaRLcxNHlBopwKkQzsqZK/h3tXGK9+b+O5uHV a3QJpcIXlCM36na1YdK4PA+9LtoZCItPr6wL6y63U9svWu5E41Ly5FKQJOuWcCNdjbyknHqWuavyxVRw lNLFa/BjWTyuvIn2vxBOtQZndU8DQXM5R3NGsCKaVX B7q8TH9ZYPkovcaTKtX1A43G//zBTkucfYVfauMpQhhNyzbHF+sokZsBTwPI4+CnndvU1JmbUeKsCiAy uKq6ItZDs6KGoBO0XP6WeeixItnFAwJWjnxSf0LKV8GSj7NWU+VhwDXz4vev40H9ocWheyL4PzujmJ5N /X9HdE2JXw+wWz17myXY8Fxg1G5jZZCBxSwj5t+Nisreen [file] VlGI1KGSc= ID Date Data Source [id number] 12/13/2019 01:09:42 PM [facility] Name Value Range Interpretation Code Description Data Neva e(s) Supporting Document(s) Leukocytes [#/volume] in Blood by Automated count 5.8 10*3/uL 4-10 [facility] Erythrocytes [#/volume] in Blood by Automated count 3.91 10*6/uL 4.6- 6.1 L [facility] Hemoglobin [Mass/volume] in Blood 11.8 g/dL 13.5-18 L [facility] Hematocrit [Volume Fraction] of Blood by Automated count 34.3 % 4 1-53 L [facility] Erythrocyte mean corpuscular volume [Entitic volume] by Auto mated count 87.7 fL 80-96 [facility] Erythrocyte mean corpuscular hemoglobin [Entitic mass] by Automated count 30.2 pg 27-33 [facility] Erythrocyte mean corpuscular hemoglobin concentration [Mass/volume] by Automated count 34.4 g/dL 32.0-36.0 [facility] E[facility]th[facility] distribution width [Ratio] by Automated count 13.5 % 11.5-14.5 [facility] Platelets [#/volume] in Blood by Automated count 233 10*3/uL 150-400 [facility] Differential cell count method - Blood [facility] Neutrophils/100 leukocytes in Blood by Automated count 72 % [facility] Lymphocytes/100 leukocytes in Blood by Automated count 11 % [facility] Monocytes/100 leukocytes in Blood by Automated count 12 % [facility] Eosinophils/100 leukocytes in Blood by Automated count 4 % [facility] Basophils/100 leukocytes in Blood by Automated count 1 % [facility] Neutrophils [#/volume] in Blood by Automated count 4.22 10*3/uL 1.8-7 .0 [facility] Lymphocytes [#/volume] in Blood by Automated count 0.62 10*3/uL 1.2-4 .0 L [facility] Monocytes [#/volume] in Blood by Automated count 0.68 10*3/uL 0-0.8 [facility] Eosinophils [#/volume] in Blood by Automated count 0.21 10*3/uL 0-0.5 [facility] Basophils [#/volume] in Blood by Automated count 0.05 10*3/uL 0-0.2 [facility] Nucleated erythrocytes/100 leukocytes [Ratio] in Blood by Automated count 0 /100{WBCs} 0-0 [facility] ID Date Data Source [id number] 12/13/2019 02:05:55 PM [facility] Name Value Range Interpretation Code Description Data Neva rce(s) Supporting Document(s) Albumin [Mass/volume] in Serum or Plasma by Bromocresol green (BCG) dye binding method 4.1 g/dL 3.5-5.2 [facility] Bilirubin.total [Mass/volume] in Serum or Plasma 0.3 mg/dL <1.2 [facility] Calcium [Mass/volume] in Serum or Plasma 8.8 mg/dL 8.8-10.2 [facility] Chloride [Moles/volume] in Serum or Plasma 91 mmol/L 98-107 L [facility] Creatinine [Mass/volume] in Serum or Plasma 0.69 mg/dL 0.70-1.20 L [facility] Glucose [Mass/volume] in Serum or Plasma 102 mg/dL 70-140 [facility] Alkaline phosphatase [Enzymatic activity/volume] in Serum or Plasma 81 U/L 40-129 [facility] Potassium [Moles/volume] in Serum or Plasma 3.8 mmol/L 3.4-5.1 [facility] Protein [Mass/volume] in Serum or Plasma 6.5 g/dL 6.4-8.3 [facility] Sodium [Moles/volume] in Serum or Plasma 128 mmol/L 136-145 L [facility] Aspartate aminotransferase [Enzymatic activity/volume] in Serum or Plasma 14 U/L <40 [facility] Urea nitrogen [Mass/volume] in Serum or Plasma 12 mg/dL 8-23 [facility] Osmolality of Serum or Plasma by calculation 266 mosm/kg 275-300 L [facility] Creatinine/Urea nitrogen [Mass Ratio] in Serum or Plasma 17 [facility] Bicarbonate [Moles/volume] in Serum 26 mmol/L 22-29 [facility] Alanine aminotransferase [Enzymatic activity/volume] in Seru m or Plasma 11 U/L <41 [facility] Anion gap 3 in Serum or Plasma 11 mmol/L 8-15 [facility] Albumin/Globulin [Mass Ratio] in Serum or Plasma 1.7 [facility] Glomerular filtration rate/1.73 sq M pre dicted among non-blacks [Volume Rate/Area] in Serum or Plasma by Creatinine-based formula (MDRD) >6 0 [facility] Glomerular filtration rate/1.73 sq M pre dicted among blacks [Volume Rate/Area] in Serum or Plasma by Creatinine-based formula (MDRD) >60 [facility] ID Date Data Source [id number] 12/13/2019 02:22:31 PM [facility] Name Value Range Interpretation Code Description Data Neva rce(s) Supporting Document(s) Thyrotropin [Units/volume] in Serum or Plasma 4.640 u[IU]/mL 0.270-4. 200 H [facility] ID Date Data Source [id number] 11/29/2019 01:15:00 PM EST [place] ([facility]) Name Value Range Interpretation Code Description Data Neva rce(s) Supporting Document(s) Albumin [Mass/volume] in Blood by Bromocresol purple ( BCP) dye binding method 4 g/dl Albumin [facility] ([facility]) Note: Responsible Observer: AW Alkaline Phos 86 IU/L Alkaline Phos [place] ([facility]) Note: Responsible Observer: AW ALT 10 IU/L ALT [place] ([facility]) Note: Responsible Observer: AW AST 13 IU/L AST [place] ([facility]) Note: Responsible Observer: AW Urea nitrogen [Moles/volume] in Blood 12 mg/dl Urea Nitrogen [place] ([facility]) Note: Responsible Observer: AW Calcium [Moles/volume] in Urine collected for unspecified durati on 9.1 mg/dl Calcium [place] ([facility]) Note: Responsible Observer: AW Chloride [Moles/volume] in Serum, Plasma or Blood 95 mmol/L Below low normal Chloride [place] ([facility]) Note: Responsible Observer: AW CO2 25 mmol/L CO2 [place] ([facility]) Note: Responsible Observer: AW Creatinine [Moles/volume] in Vitreous fluid 0.6 mg/dl Creatinine [place] ([facility]) Note: Responsible Observer: AW EGFR - AfricanAm > 60 N/A [facility] - [facility]Am [facility] Note: Responsible Observer: AW EGFR - Non AF AM > 60 N/A EGFR - Non AF AM [facility]) Note: Responsible Observer: AW Glucose [Mass/volume] in Urine collected for unspecified duration 9 5 mg/dl Glucose [place] ([facility]) Note: Responsible Observer: AW Potassium [Mass/volume] in Blood 3.5 mmol/L Pot assium [place] ([facility]) Note: Responsible Observer: AW Sodium [Moles/volume] in Serum, Plasma or Blood 129 mmol/L Below low normal Sodium [place] ([facility]) Note: Responsible Observer: AW Total Bilirubin 0.5 mg/dl [facility] Note: Responsible Observer: AW Total Protein 5.7 g/dl Below low normal Total Protein [facility] ([facility]) Note: Responsible Observer: AW ID Date Data Source [id number] 11/18/2019 10:14:42 AM [facility] Name Value Range Interpretation Code Description Data Neva rce(s) Supporting Document(s) Progress Note [facility] VFYSAu3oAzJQTsEw96/XGEayNQPbd5WfFBxmBLe5EMuiYCAqM4XuFYL3rU2zICE8AFgBGwUxGfDkPNGy [facility] [file] TDUo+xeMiI/8xrY7Nk1FTkOx/9be9bYStYTUIvf6gvNiGcLsbP7VwEQPPpOaXR/DISPATCH SUPERVISOR/R07JrrteYqGl+d [file] ICAgICAgICAgICAgICAgICAgICAgICAgICAgICAgIC HxTLEhTOJdKUZnWAUdCNXqUJAfCSFdSOSxKZElRXOzLWTaKVBrQLYkFCQvRPNfHI5GGDOdCLZoCZQtWD AgICAgICAgICAgICAgICAgICAgICAgICAgICAgICAgICAgICAgICAgICAgICAgICAgICAgICAgICAgIC ElBYLiUARyRRZaMSVyHQIkCMQyZBXnLOVtCZUiUZ0K ICAgICAgICAgICAgICAgICAgICAgICAgICAgICAgICAgICAgICAgICAgICAgICAgICAgICAgICAgICAg ESGxYTDsQYNyOXZjFARaVIDhEMRzJCIvONNrHXMnYDXdDSVrVAPnFL2KLTKxIKMlNOWhBZZjLVTvGSLl ICAgICAgICAgICAgICAgICAgICAgICAgICAgICAgIC MaRNBsKEYlRDQjTYHoDNSgYHSdOTQlSYMcCURlXLXdAPCkYINtBXLvIJFtJWPtEQKpUJ3UUAXaMDSpLV AgICAgICAgICAgICAgICAgICAgICAgICAgICAgICAgICAgICAgICAgICAgICAgICAgICAgICAgICAgIC AgICAgICAgICAgICAgICAgICAgICAgICAgICAgICAg BE6SWNMmWDNuFIBwOPElFGTcAYIyUCIwLHCpGDMiFLOrKOMeSISwLKDwLEZyJHOtPMWsCNVbSNWdAWZw VLVsCAFjNDMwQQWaNRXtDZQkFPObGHKkKDFgUJHsWHSkGIRsAJHtHAMrFK4RXEOoZVCxQHBkPGWgFBKw ICAgICAgICAgICAgICAgICAgICAgICAgICAgICAgIC FbUMQmDYPhPJXrGSGiHPKiKISgIKNjAUIgXIJbPDRtLYJhDLWpCAJpYZBjPWRjCXGbRTTvOE5DNEOfLX AgICAgICAgICAgICAgICAgICAgICAgICAgICAgICAgICAgICAgICAgICAgICAgICAgICAgICAgICAgIC AgICAgICAgICAgICAgICAgICAgICAgICAgICAgICAg MJGqZS8YPPMjMMIwEOBbUPQcLXKmZIVbTWLiVUPoZSCiVBLbFBReZMSnBBOmRVFqJERiKBXxVIQeTMVy UPVsSIXwZQFbFEDxNBTnDCLsUFUgQZMfNDTiQKKeKEHdYPSrBMJuBSMhMOYtTH9EKDGyNWJuEDAcWQOg ICAgICAgICAgICAgICAgICAgICAgICAgICAgICAgIC EaBGRuGUOgOLZsTQKxDDBdYXRlFXVnLGAsWDQsGONeNNHaZKOoFWTkPBJeZWLyXAUwVBDvXEUwZO0RAN 50hAIhe6T4TYGmCT7aoga/Gm9QPXbctkQtjJKrBS7BSlDdSN6kck1CDeKdAH8ili0FOHsNHjOqM4W3oI CfYIYrWZKHCoIoA49hJXwrBo55IBvuCANqYiWjEDr8 Cj4DKcNhE0qhATJxYwD5TXJhGyM0KMMmYtJoNEGjVQFvHDLgEQZTXOI1NMEqXyDdEtJnBBDvBGxkRBZQ FOBvTJUbBtDxPUpyUX5Vn5CdxHI8YOp+Ae8NBN0sd1ZaBNjjJwVjTD7tiv1WWCkDTrOkD1FlaaP5MGL4 OHPbNi0DFVEvSJZrqDCgQEHqGDOMJpRtD0UkoK93KX ENCj4+WMvyljUsNzsOWtZ3MWDxh5YpLFy8GT2UHYLoCBc9nZVtHMTpK0Eif6IzDm86IGTuVvbcXNGcGB ghaDQPXZXyOTZkyJesPuKcSJMxYY5vZS4gJZRqADVoDlX7HYSJSM9QDMMqRIGsqHUxQWXnFRZSAV0UZQ maNLE9ZRPvlkVezXGnBHyvNP0UXKAkesHdZhlsFRMV DQo+Zu8ADS9og7TcGJx6LLWjd4EqGAp9ZF5XSUClVQmyHOMxXQ9cl3TeZ7X3GpY9fQEoI2rsrvgwL4Ge npLgbeZxYHLkZDDxKU9PLO3CLV5GMZJoVRllKN0HRZB5PYx6PfK0YYKzDIYkHSTsJS1bZMmlUQ7VDQg9 I9QkO1CJFQYjPJPNDPSpxMA3EMFUCt9GN3GYBcnQKG XKDw2PWnTbT0KMB8eNQ54YGO6RBKV+PiANCj4+TDhouxSkFwaFZcX7ENFml6AjYJr5ZF6TUUEjUNbaHF 1FMKLvoP1qQLxwAW9MEpNhTZDbQJCTDhNnJ37pzQJfIKg6B8AeQoZjMYUxAahpWSMpUVasNmFoSLOrVu BdDQogID4+ID4+OBmrBR1APPirwwQjYJXxBv4RROOn LLOkDO7kXRGrFVJsT7W3pLhpFQYODnFuU6mtxmlgYT8fNXDhS206dCtsnjYzTNZ9VVJbSo7WROZzLRF4 YZHenDGnCcWoIYTZYHazOT2VqJLfPTS5bE4fJCadYILlFHMnN4sEMuZsjGroGY77xBdkyeLecGChKFs+ Zl1HFA7yt3IkOQg4gpUeINvzESOqCWsdWQDuOQVgYA QfBMY9UBA4GWDJNnLwBUBrEFDuGYjuORHeFACinp5ZZHUwYUP2HqX3BDXpNVIfOSYqIGzbMVPwJRN0AF m9PRSsVRYpCN9SLgSeUKJyPTZaEBinSTJcLQNapl0NWRQvWSVcCmQfQJOaGCYqXUOuQIwqJHKiBIQ7GX Q2CQGtBBNjIQ4UUlWuADThWPB0JDXlNYCuAXGofv7S ALGtOLHtFsr1XjPdUNOjJCPfEBzhVLVqHYO7IBnjRQEmIHXcAB3IRlLwLXJdNGS6QbZhOWHlTUSowk3B QQPqFDFdJZmzWKBnPTRaFEMrVAlrQVIdQGF3EXDrYGEgDQJpYN0FYdJoHWZaIPH6AjtzXWRvJDTpbi1R WHPaFELkFtt4IACmBMBxZOHsYJijJNNwVMX9NMEtHD LfBMCgMP1FEnHgFXRgJeN1KMBmAOBxMKOsoc9EALBkZIKmPSFuMZRzAEWqWAPcCNmgKSCnJLL0PEK7AX OkGFFgZL5JFyUiHDTqUaGoLzOgQKQaWFYdyh2NVKKzGSBsMuj5LVOkECLjQKBxUMxwVNWyHPT3PUcmWP JlNFKcDE2LBeEgZPMwIrb5VOQkQMMcNRLrcu3IVHYv IYSvVIIvQbWrGTAwQTVvOOfgJTXtSZZ9HkOnIZPsNJYeXR3QXzPgBRXbXucnYivoIECnCRCjna1QFTVq NQRnXPG5NOAzQFZlFBPzLZydYNSxKVN6IdO4LLEeAJHgUD3LJgDxXHMvWJXqBPzgAVCwMPRezr1CUKEn YZK8XCSxCLKtFEGnUNSbWIztTUOfTLSkScSqYKHgJF LaUZ2SIzCgDJHwNOC6MQCmIIAzXHZtry5WOGPaGAZ2DiSsIRRbAQBxNYSvTLvvDGZtHMXjXMjtDOSbUU KmBR6BPpDxIDAwDFLgCnZzDSPeUGFsfg3PYABmJMA8GtUvQTJdFLKgBUZbMLnmBYUkECLsJpV9JVMeGY HgRF4SUdVbVYGyGZQoKPDxXEQmDLLhqt7HKTMkYTR5 XOWqSoFuWJNtOZIrUFxgGAQjBXY9VeNzPIMaZKBkND1OLuQiQPivWBCBOha8PTrlH7t9OKA0KM0UY3Ys o1YgIofbRBQQCWuiBE6mdqKqMXMvDk7OX4pILfrkMdVwBbV5TUboD8IsBwrnLyUzNJAdUAKmPpCxXpR8 Te8zIIFvZcXhKewkICT5UsFyBIRvLxX2ZzY9FOIvLO QmCNMaSvGeRL7YUc0IFpX7VWP7wPJdFa0LTSD0OAZXVzTzNF3FNOv= ID Date Data Source [id number] 11/17/2019 12:47:54 PM EST [facility] Name Value Range Interpretation Code Description Data Neva rce(s) Supporting Document(s) Leukocytes [#/volume] in Blood by Automated count 6.0 10*3/uL 4-10 [facility] Erythrocytes [#/volume] in Blood by Automated count 3.68 10*6/uL 4.6- 6.1 L [facility] Hemoglobin [Mass/volume] in Blood 11.6 g/dL 13.5-18 L [facility] Hematocrit [Volume Fraction] of Blood by Automated count 33.8 % 4 1-53 L [facility] Erythrocyte mean corpuscular volume [Entitic volume] by Auto mated count 91.8 fL 80-96 [facility] Erythrocyte mean corpuscular hemoglobin [Entitic mass] by Automated count 31.4 pg 27-33 [facility] Erythrocyte mean corpuscular hemoglobin concentration [Mass/volume] by Automated count 34.2 g/dL 32.0-36.0 [facility] E[facility]th[facility] distribution width [Ratio] by Automated count 13.5 % 11.5-14.5 [facility] Platelets [#/volume] in Blood by Automated count 234 10*3/uL 150-400 [facility] Differential cell count method - Blood [facility] Neutrophils/100 leukocytes in Blood by Automated count 71 % [facility] Lymphocytes/100 leukocytes in Blood by Automated count 11 % [facility] Monocytes/100 leukocytes in Blood by Automated count 13 % [facility] Eosinophils/100 leukocytes in Blood by Automated count 4 % [facility] Basophils/100 leukocytes in Blood by Automated count 1 % [facility] Neutrophils [#/volume] in Blood by Automated count 4.34 10*3/uL 1.8-7 .0 [facility] Lymphocytes [#/volume] in Blood by Automated count 0.67 10*3/uL 1.2-4 .0 L [facility] Monocytes [#/volume] in Blood by Automated count 0.76 10*3/uL 0-0.8 [facility] Eosinophils [#/volume] in Blood by Automated count 0.22 10*3/uL 0-0.5 [facility] Basophils [#/volume] in Blood by Automated count 0.06 10*3/uL 0-0.2 [facility] Nucleated erythrocytes/100 leukocytes [Ratio] in Blood by Automated count 0 /100{WBCs} 0-0 [facility] ID Date Data Source [id number] 11/17/2019 01:50:19 PM [facility] Name Value Range Interpretation Code Description Data Neva rce(s) Supporting Document(s) Albumin [Mass/volume] in Serum or Plasma by Bromocresol green (BCG) dye binding method 4.0 g/dL 3.5-5.2 [facility] Bilirubin.total [Mass/volume] in Serum or Plasma 0.2 mg/dL <1.2 [facility] Calcium [Mass/volume] in Serum or Plasma 8.6 mg/dL 8.8-10.2 L [facility] Chloride [Moles/volume] in Serum or Plasma 94 mmol/L 98-107 L [facility] Creatinine [Mass/volume] in Serum or Plasma 0.70 mg/dL 0.70-1.20 [facility] Glucose [Mass/volume] in Serum or Plasma 92 mg/dL 70-140 [facility] Alkaline phosphatase [Enzymatic activity/volume] in Serum or Plasma 77 U/L 40-129 [facility] Potassium [Moles/volume] in Serum or Plasma 3.9 mmol/L 3.4-5.1 [facility] Protein [Mass/volume] in Serum or Plasma 6.3 g/dL 6.4-8.3 L [facility] Sodium [Moles/volume] in Serum or Plasma 127 mmol/L 136-145 L [facility] Aspartate aminotransferase [Enzymatic activity/volume] in Serum or Plasma 12 U/L <40 [facility] Urea nitrogen [Mass/volume] in Serum or Plasma 9 mg/dL 8-23 [facility] Osmolality of Serum or Plasma by calculation 262 mosm/kg 275-300 L [facility] Creatinine/Urea nitrogen [Mass Ratio] in Serum or Plasma 13 [facility] Bicarbonate [Moles/volume] in Serum 27 mmol/L 22-29 [facility] Alanine aminotransferase [Enzymatic activity/volume] in Seru m or Plasma 7 U/L <41 [facility] Anion gap 3 in Serum or Plasma 6 mmol/L 8-15 L [facility] Albumin/Globulin [Mass Ratio] in Serum or Plasma 1.7 [facility] Glomerular filtration rate/1.73 sq M pre dicted among non-blacks [Volume Rate/Area] in Serum or Plasma by Creatinine-based formula (MDRD) >6 0 [facility] Glomerular filtration rate/1.73 sq M pre dicted among blacks [Volume Rate/Area] in Serum or Plasma by Creatinine-based formula (MDRD) >60 [facility] ID Date Data Source [id number] 11/17/2019 01:50:19 PM [facility] Name Value Range Interpretation Code Description Data Neva rce(s) Supporting Document(s) Thyrotropin [Units/volume] in Serum or Plasma 5.150 u[IU]/mL 0.270-4. 200 H [facility] ID Date Data Source [id number] 10/28/2019 09:20:18 AM [facility] Name Value Range Interpretation Code Description Data Neva rce(s) Supporting Document(s) Progress Note [facility] [id number] lbm [file] [id number]+[place]/+/xZkQlPSGwnZwdQrju7CmaNipSBf4GVvumvmvJnZtRaWrflhAalf2 [file] [id number]== ID Date Data Source [id number] 10/27/2019 12:15:19 PM [facility] Name Value Range Interpretation Code Description Data [facility](s) Supporting Document(s) Leukocytes [#/volume] in Blood by Automated count 5.8 10*3/uL 4-10 [facility] Erythrocytes [#/volume] in Blood by Automated count 3.36 10*6/uL 4.6- 6.1 L [facility] Hemoglobin [Mass/volume] in Blood 10.8 g/dL 13.5-18 L [facility] Hematocrit [Volume Fraction] of Blood by Automated count 31.1 % 4 1-53 L [facility] Erythrocyte mean corpuscular volume [Entitic volume] by Auto mated count 92.5 fL 80-96 [facility] Erythrocyte mean corpuscular hemoglobin [Entitic mass] by Automated count 32.1 pg 27-33 [facility] Erythrocyte mean corpuscular hemoglobin concentration [Mass/volume] by Automated count 34.7 g/dL 32.0-36.0 [facility] Erythrocyte distribution width [Ratio] by Automated count 14.2 % 11.5-14.5 [facility] Platelets [#/volume] in Blood by Automated count 273 10*3/uL 150-400 [facility] Differential cell count method - Blood [facility] Neutrophils/100 leukocytes in Blood by Automated count 72 % [facility] Lymphocytes/100 leukocytes in Blood by Automated count 12 % [facility] Monocytes/100 leukocytes in Blood by Automated count 11 % [facility] Eosinophils/100 leukocytes in Blood by Automated count 4 % [facility] Basophils/100 leukocytes in Blood by Automated count 1 % [facility] Neutrophils [#/volume] in Blood by Automated count 4.17 10*3/uL 1.8-7 .0 [facility] Lymphocytes [#/volume] in Blood by Automated count 0.69 10*3/uL 1.2-4 .0 L [facility] Monocytes [#/volume] in Blood by Automated count 0.62 10*3/uL 0-0.8 [facility] Eosinophils [#/volume] in Blood by Automated count 0.21 10*3/uL 0-0.5 [facility] Basophils [#/volume] in Blood by Automated count 0.07 10*3/uL 0-0.2 [facility] Nucleated erythrocytes/100 leukocytes [Ratio] in Blood by Automated count 0 /100{WBCs} 0-0 [facility] ID Date Data Source [id number] 10/27/2019 12:42:15 PM [facility] Name Value Range Interpretation Code Description Data Neva rce(s) Supporting Document(s) Albumin [Mass/volume] in Serum or Plasma by Bromocresol green (BCG) dye binding method 3.9 g/dL 3.5-5.2 [facility] al Bilirubin.total [Mass/volume] in Serum or Plasma 0.2 mg/dL <1.2 [facility] Calcium [Mass/volume] in Serum or Plasma 8.8 mg/dL 8.8-10.2 [facility] Chloride [Moles/volume] in Serum or Plasma 93 mmol/L 98-107 L [facility] Creatinine [Mass/volume] in Serum or Plasma 0.71 mg/dL 0.70-1.20 [facility] Glucose [Mass/volume] in Serum or Plasma 123 mg/dL 70-140 [facility] Alkaline phosphatase [Enzymatic activity/volume] in Serum or Plasma 87 U/L 40-129 [facility] Potassium [Moles/volume] in Serum or Plasma 3.6 mmol/L 3.4-5.1 [facility] Protein [Mass/volume] in Serum or Plasma 6.3 g/dL 6.4-8.3 L [facility] Sodium [Moles/volume] in Serum or Plasma 128 mmol/L 136-145 L [facility] Aspartate aminotransferase [Enzymatic activity/volume] in Serum or Plasma 13 U/L <40 [facility] Urea nitrogen [Mass/volume] in Serum or Plasma 8 mg/dL 8-23 [facility] Osmolality of Serum or Plasma by calculation 266 mosm/kg 275-300 L [facility] Creatinine/Urea nitrogen [Mass Ratio] in Serum or Plasma 11 [facility] Bicarbonate [Moles/volume] in Serum 26 mmol/L 22-29 [facility] Alanine aminotransferase [Enzymatic activity/volume] in Seru m or Plasma 10 U/L <41 [facility] Anion gap 3 in Serum or Plasma 9 mmol/L 8-15 [facility] Albumin/Globulin [Mass Ratio] in Serum or Plasma 1.6 [facility] Glomerular filtration rate/1.73 sq M pre dicted among non-blacks [Volume Rate/Area] in Serum or Plasma by Creatinine-based formula (MDRD) >6 0 [facility] Glomerular filtration rate/1.73 sq M pre dicted among blacks [Volume Rate/Area] in Serum or Plasma by Creatinine-based formula (MDRD) >60 [facility] ID Date Data Source [id number] 10/27/2019 12:42:15 PM [facility] Name Value Range Interpretation Code Description Data Neva rce(s) Supporting Document(s) Thyrotropin [Units/volume] in Serum or Plasma 3.190 u[IU]/mL 0.270-4. 200 [facility] ID Date Data Source [id number] 10/21/2019 10:35:13 AM [facility] Name Value Range Interpretation Code Description Data Neva rce(s) Supporting Document(s) Progress Note [facility] XJZVSj2tXwQBKwWz75/CBJguZLMzp5QdXExyRSp5PFdyGJMpV0SnULF4eY6hWZG7DWqMPwBuKeYrXTJn lbm AnNxxETlNrFAYgTgpWGiIwFGllMglejSAxFW7GeDB8KKOoF51qZHEpMXNcK6UtPGQxKts+Jc7HEQZdwM DcGC3IZrdX2G9ve1nVPg/yfe6PC7Lxc6lrHluHc6dqkAjGiuB3TPVuGkT8dMaCAyCTLvzXQg/6AjiAwK 2Hd3O01BrcHNFg4s35k3j/fdwDEGPqn/+wgedYlsWK f1e/ofAv8vv36v4DL3xK1lOeQnSLPMVl2/ESMER/mvkn/1aRRJA440ED6Brc0ytdngIBfvLOlMDrCgf0Lc [file] pS4Xu2c4kbwaifwib9u9erpSpzs5dHBhS23HnPzxU/4Q/OBQRe97wXoYl0+eq2rsfUW2YVOjzy288+claims collector [file] ICAgICAgICAgICAgICAgICAgICAgICAgICAgICAgICAgICAgICAgICAgICAgICAgICAgICAgICAgICAg ICAgICAgICAgICAgICAgICAgICAgICAgICAgDQogICAgICAgICAgICAgICAgICAgICAgICAgICAgICAg ICAgICAgICAgICAgICAgICAgICAgICAgICAgICAgIC AgICAgICAgICAgICAgICAgICAgICAgICAgICAgICAgICAgICAgDQogICAgICAgICAgICAgICAgICAgIC AgICAgICAgICAgICAgICAgICAgICAgICAgICAgICAgICAgICAgICAgICAgICAgICAgICAgICAgICAgIC AgICAgICAgICAgICAgICAgICAgDQogICAgICAgICAg ICAgICAgICAgICAgICAgICAgICAgICAgICAgICAgICAgICAgICAgICAgICAgICAgICAgICAgICAgICAg ICAgICAgICAgICAgICAgICAgICAgICAgICAgICAgDQogICAgICAgICAgICAgICAgICAgICAgICAgICAg ICAgICAgICAgICAgICAgICAgICAgICAgICAgICAgIC AgICAgICAgICAgICAgICAgICAgICAgICAgICAgICAgICAgICAgICAgDQogICAgICAgICAgICAgICAgIC AgICAgICAgICAgICAgICAgICAgICAgICAgICAgICAgICAgICAgICAgICAgICAgICAgICAgICAgICAgIC AgICAgICAgICAgICAgICAgICAgICAgDQogICAgICAg ICAgICAgICAgICAgICAgICAgICAgICAgICAgICAgICAgICAgICAgICAgICAgICAgICAgICAgICAgICAg ICAgICAgICAgICAgICAgICAgICAgICAgICAgICAgICAgDQogICAgICAgICAgICAgICAgICAgICAgICAg ICAgICAgICAgICAgICAgICAgICAgICAgICAgICAgIC AgICAgICAgICAgICAgICAgICAgICAgICAgICAgICAgICAgICAgICAgICAgDQogICAgICAgICAgICAgIC AgICAgICAgICAgICAgICAgICAgICAgICAgICAgICAgICAgICAgICAgICAgICAgICAgICAgICAgICAgIC AgICAgICAgICAgICAgICAgICAgICAgICAgDQogICAg ICAgICAgICAgICAgICAgICAgICAgICAgICAgICAgICAgICAgICAgICAgICAgICAgICAgICAgICAgICAg AYVvWOBwROOoUOYbNQVgPRHpVURxPRNzXXLiGOMwDEExAYJiQSr8J5hrAAAuBUXwVJ6nPLg3Yo1+DQoN YmEvBPW0pnShnB4FTO2an4KrPAykTTYxm1QsIMi9LH 6BPDKvIGteHP3YLJzyzn6LDIBjHXYlfYZOc9enNrRtQDB5FADyHfnfPC8LMKIpT5gxuxUsINBwVTWJYH ppBGNYMGSaMZAlClGqTnBnIDViBFKyGBVAAPW9CLDrEhQiDDHaMDZaBxDoRUHODF9EAxNoX7EduA30HR gNCj4+NMgblqNjXakUYtK7BTZqt4AyYOf2JQ8KHDWl Qvpow6IiBqmiRPFHUCcnME8EXKH1ANI4DWQwEg9UVNFtO721skXsKM3PDn9KNrPgLF5mru4QLtbtRBQo NxnAFqw1AWmjGL1BcIOtMOnThw8zrnLfkkUOl4NfnnQiyVPEQnKdhNuoHRXdFMcaXbF5AWDSLKCxcKOc RhUwQnEpANHxNzwqTDZBCOlWOsCiM5Bki5SrFuV4LP YpQgYkGLhlOJYjFkH1XA36jNmqXC9BERScJCZdIC94ETT7CBGzMb6BLo8AGmQqEJ8wzn2LIoReTB9baw 0LTBrAZpMeD8V6eOKhW6Meab84JH4IuLM5aJYqOS4UwO9oRW3Tk6BhECCjSuBpRUDiLMIhXCSzITJgWp VkAQ7FOGRgVeJfbKQeDLIcLIP2ECYoEsH8EtxsZF9B UVTrCEJ0AJ3LLU7XUrrjL5TGSZgklAmcUgBGCGP/YFLWNOMUWGpaVEDrH12NJ6DISQsYOuxlWUpOIknx Ko5eAHi+Cf7YTC1td1RyTNouOPAqWA0ozy8GGUjSCjEwE3Q9kSVdA8V2OOlcGu2HAKQwIVBiBeAxBQVL OLvhCR3XMV7qswN9FA2UjQSjPFNuKPLorNMwJCo9H8 6rkHCoFTatGC1VLUD+Delbert+Lm4ECIXcYHFyTSWtPjSrSYTINmPvU9PwJ4WAy9DyE7CxHP70lLcrfvOtOI brRQ0XMJ2kRGFpCQSRUZ6XpOPwjV7fxpIoWpIgMDCOYtDpA22jmABfADIiOYU8GURlKt0EYFVmP4Ajsp NvwNzoyeNzNLIpDAOGUE6XQKbhnmLgwGJfdTquZO47 fTfbXW1HWe7JKlZeUT5ufm5VhIRzDe1YXXZ0BJ0EASUpWGLaIZThIFF3AHNsCiTxWRttQDQkPLJmFJE7 TJSwFKGdWI1OZeQaJXMwRPJ2QPNeDDAeFBQxvs3ZKARnGDL4NRU1JqQvLKIxHJSaMWesAIOjLIFlYNR1 XLQhULWcFI2GLlZtVVLqJKK3QNBzWWYuHGBoog9HGX QwRQF2EMF7TFMjXYPhYDLeEJdySVMyJQHlUhT4SXAvXQOsNM4PXrFzPCEwLOxpWxIiVFTpYPNvbv0RNI NyWFVzPJM3KJPjMLSeRFUmLMceOVCwMLSxSmXvJVYeNEEcYH5TGgYoTYInZRV6UkwdNUZcSHUesr4NJA PpHLIgZVKkNuQfWZDbYHEcTJsyVBAqYTT6HgA0MRTb RBNpXD7OFlPnJKDaPUj2EeQyTGNeTHNjjo8SAKWuFZQsMyhoSIRrZQVbSORsUWsvNRLvNEMgWyq2QARi HEDpRQ9XOlSuZOGvVtB2KPOdGXBnNAPxnk9DVNCmNHEnBNv0HNApRTZxZUTsYPyiTQUjQRD3VMN6BTMk DUPeFS4NFfAiJMNvKzM0MyXqLXCiJGBkyk6INZBoVY ZkXnV2OVGaJFXuWCBnAKaiHLFgLSQ7WEKfOLLyEBPeZO9HMeMrSWUeZttkZdkqPYHdNVHnsm1ONHUnGJ CtLKGaKOJlUTUaTMTaGFhlWAFtWMJ2EIyjAROfMSMgJG2DInPqDRJySxo0NgLsZVXeIMMgml1VXAWmAV ItLXh5MGWeVTCwBDTpZNysLQIoORHiOzyoNZKcRTKv RP9VQhYyPZDgPUS7RVLqRJTiFNJbla2YASOgVMT1JQrvDLBxNFLlULReYNjsDKJxLJIlNMy8DYDyNMTy TQ3BYbNsTPQhOGRnSkTfVBBbFKGocv9YCAYwTRP5IpD7ZQVrIPChEXQvMPhzLDMvBGSuRvCkAHJhGEZx QC5LXpKlWRIjKCI8ItOuQCMwRRYqrs8GOCXiEAH8Xv m7TlEgEFDkGKDtOAfkTEVcSPU3LYQjHLVaKVZlKH8KTmDeMGGlDQN1GJQeWDRjOWZnll8IIUMwIWX5GT kxCKHeVJYyBDKeZXy2eaVhoSEeMJv4AZ5YE4JilmJiPHGJFn2Fi484TYV9BZYcKn0FU1jlAz2jVSCsIG YNIf0NHBa3EDOxLAT7OCJiKrI5PoBzSZwdGXVaWRht AFD0IFKpLXq+MXjwD5JbGVUjUxZ1YkasFaQ7JyN9BFEpEUZ9DFytNJS8Nz8jNIUWVr5+DQpzdGFydHhy NKOVBaG8LOa7FHmlXICRIo6V ID Date Data Source [id number] 10/20/2019 03:02:30 PM EST [facility] Name Value Range Interpretation Code Description Data Neva rce(s) Supporting Document(s) ED Provider Note [facility] GATMFj4nOuVQSyFi58/IAFqzWVQap3QqKQljVGi5GOhiNBWfX6LhMJS4wG4cOGY7QTiSMjQkVyZvFFIg lbm [file] SKkOnWa8KDuVwT8fGxY0A1BT+y3Tf2zTMajcmMpcbyVlDjH5sOq/+Hernán+aHonLcP5i+Htbr/+th12O6am hd6EsV1fjciO2YDQKcs2G0/OKkG8uo1cUWv6zF5TybV4ngINrj92KgY2S97M5bfW7Y1WdfPIkoKzocAp 1wOW8mDfPFFWMx94PQ/YmRfJ2uSGgv7QTxc4cxT/F1 do8rwmzmpKL7LoGQlDk/wBFiIlRAHrfG68E7/FtsvzI8tEQu1nOd5pujdC9oss+fxik+QaTQZqvoVDa9 Nb1bfYR29bvgdsBsiDwcU1bCzzLgLACp09H52Qr/1FIQBasEkW8seTSUWZqjpLRJCwcrVkliqEnr5j/e EWS54o2A1cer65eSlcP/aX5QxNURTPA2gSBTsYl6Cz 3ye37Waqmp20hsK1ow6Hi4E2Sdbg+Bz8NcGVq9+vA9kB0GtkKMx4wCDljfdZ727u0OuztsBy/4LP0cFh /iQZiJWv/nmOd9t83+gkdyQRly8pZubwgqVCylq/czgIxiflcddcAC32H0EIdhKnMt5VtuleQccwOJrD IB5c2pEYOSvZfXOO0RYL3lEmMSR+L3Ee+avnyYEtdW QsnA/MIl53DXDw0m43U1987joggxPXdwHerkegXKjhyYyZE1X3fv4AyN9iFgEjhJ/+3G139c5/yef+4q TrnB52hup06OXCRt0ni/vuYd1b/Vietnamese/ktdnGW18NQDRG/lpioelfknBYdwTKy4HHs8Wn5b+Qpe9kNJTkW VZ/r+2ZmbQkJTvOIFjtQQX3NpnuAhOfTm5ctuzdDyq hmBRSoC6F2ib8k50Co75n3Rwc21RJyYwABG7iwUfiA5TQY5ra0OiROlzHgLbVH5pms4PGMG6YN8CZVUk HC9OiROkC8KbQ6WOFjTjNRStKPJfMQ62TUQaZPWJBWixQFDrA5Lij131tfRtfnMrJWGsXi6DAXEzVE2T YCXmZGFbrQEvRSEwITQpFgJ8PEOqMQsqHBCxF6Tggu RgebDdRNZbEBTyAy0LOEMwGJ4Eqe01fMF5VPWgPyKyWIHhnvQoFVXiybI5UG9JDkMhIER8oMGhMxeWLG 3KSOYqeUFiYI7BSZDqoXYmXG4+DQogID4+PHikbzNfCluEBiG7NZHxm7UjRQzhRLk0Z4AfdQTeygZaGo mhzYUJITKmBLUkC5nmxnc8eIGdZUO9Tl4UAnTfm5Os TTXxXEbLrl0lOMPbrzI1o7X8G/mvBMj7R/sSlLVBX4p6hrkt0F3EpC8OBPiXMwZtynMem7ZRkKxiY/Ortez kRLU5OXxkL/9oQ36R7kMj8hEnL/0GPjumVJwrFp0+HgdFpw1LL05R8JZYxgfoFfcDzp9j0t6ivT36ror BT/80NkejXpHn/kEds040xDel79hc2s+164p7FtCL8 9TE20G7oQg3s8k56qZ/ntwmlqy0thHlY4LCOlcA84V8wmid1xS40oBOCCHkfoQa6JsC1LwLqdX2G7+8e 76gId9dMfxGNb63+Vences/j44u3+XmCdjVPnPn7/eiC2OpgzQh2oF97j8lughhT1LAtCA9M+VbDTG/W3Co HbDxeZ0GdCYsgPhPwyTURlx2ICwdtldiEY9VuzS6NB X7Fgl5vVGjxEbw28BUcrMxRf6pfbsfKhUuyBAa9zj9hEaVNt1Ikx+Jameel/dEO9jR7Kvbw2aoMio0cdTt5 [file] [employer] [file] [id number] ID Date Data Source [id number] 10/20/2019 11:05:25 AM [facility] Name Value Range Interpretation Code Description Data Neva e(s) Supporting Document(s) Leukocytes [#/volume] in Blood by Automated count 9.4 10*3/uL 4-10 [facility] Erythrocytes [#/volume] in Blood by Automated count 3.24 10*6/uL 4.6- 6.1 L [facility] Hemoglobin [Mass/volume] in Blood 10.4 g/dL 13.5-18 L [facility] Hematocrit [Volume Fraction] of Blood by Automated count 30.3 % 4 1-53 L [facility] Erythrocyte mean corpuscular volume [Entitic volume] by Auto mated count 93.8 fL 80-96 [facility] Erythrocyte mean corpuscular hemoglobin [Entitic mass] by Automated count 32.2 pg 27-33 [facility] Erythrocyte mean corpuscular hemoglobin concentration [Mass/volume] by Automated count 34.3 g/dL 32.0-[facility].0 [facility] E[facility] distribution width [Ratio] by Automated count 15.1 % 11.5-14.5 H [facility] Platelets [#/volume] in Blood by Automated count 328 10*3/uL 150-400 [facility] Differential cell count method - Blood [facility] Neutrophils/100 leukocytes in Blood by Automated count 80 % [facility] Lymphocytes/100 leukocytes in Blood by Automated count 7 % [facility] Monocytes/100 leukocytes in Blood by Automated count 8 % [facility] Eosinophils/100 leukocytes in Blood by Automated count 4 % [facility] Basophils/100 leukocytes in Blood by Automated count 1 % [facility] Neutrophils [#/volume] in Blood by Automated count 7.48 10*3/uL 1.8-7 .0 H [facility] Lymphocytes [#/volume] in Blood by Automated count 0.65 10*3/uL 1.2-4 .0 L [facility] Monocytes [#/volume] in Blood by Automated count 0.76 10*3/uL 0-0.8 [facility] Eosinophils [#/volume] in Blood by Automated count 0.40 10*3/uL 0-0.5 [facility] Basophils [#/volume] in Blood by Automated count 0.07 10*3/uL 0-0.2 [facility] Nucleated erythrocytes/100 leukocytes [Ratio] in Blood by Automated count 0 /100{WBCs} 0-0 [facility] ID Date Data Source [id number] 10/20/2019 01:11:41 PM [facility] Name Value Range Interpretation Code Description Data Neva rce(s) Supporting Document(s) Albumin [Mass/volume] in Serum or Plasma by Bromocresol green (BCG) dye binding method 3.9 g/dL 3.5-5.2 [facility] Bilirubin.total [Mass/volume] in Serum or Plasma 0.3 mg/dL <1.2 [facility] Calcium [Mass/volume] in Serum or Plasma 8.4 mg/dL 8.8-10.2 L [facility] Chloride [Moles/volume] in Serum or Plasma 98 mmol/L 98-107 [facility] Creatinine [Mass/volume] in Serum or Plasma 0.71 mg/dL 0.70-1.20 [facility] Glucose [Mass/volume] in Serum or Plasma 99 mg/dL 70-140 [facility] Alkaline phosphatase [Enzymatic activity/volume] in Serum or Plasma 98 U/L 40-129 [facility] Potassium [Moles/volume] in Serum or Plasma 4.0 mmol/L 3.4-5.1 [facility] Protein [Mass/volume] in Serum or Plasma 6.3 g/dL 6.4-8.3 L [facility] Sodium [Moles/volume] in Serum or Plasma 131 mmol/L 136-145 L [facility] Aspartate aminotransferase [Enzymatic activity/volume] in Serum or Plasma 14 U/L <40 [facility] Urea nitrogen [Mass/volume] in Serum or Plasma 8 mg/dL 8-23 [facility] Osmolality of Serum or Plasma by calculation 274 mosm/kg 275-300 L [facility] Creatinine/Urea nitrogen [Mass Ratio] in Serum or Plasma 11 [facility] Bicarbonate [Moles/volume] in Serum 24 mmol/L 22-29 [facility] Alanine aminotransferase [Enzymatic activity/volume] in Seru m or Plasma 10 U/L <41 [facility] Anion gap 3 in Serum or Plasma 10 mmol/L 8-15 [facility] Albumin/Globulin [Mass Ratio] in Serum or Plasma 1.6 [facility] Glomerular filtration rate/1.73 sq M pre dicted among non-blacks [Volume Rate/Area] in Serum or Plasma by Creatinine-based formula (MDRD) >6 0 [facility] Glomerular filtration rate/1.73 sq M pre dicted among blacks [Volume Rate/Area] in Serum or Plasma by Creatinine-based formula (MDRD) >60 [facility] ID Date Data Source [id number] 10/20/2019 01:11:41 PM [facility] Name Value Range Interpretation Code Description Data Neva rce(s) Supporting Document(s) Thyrotropin [Units/volume] in Serum or Plasma 4.600 u[IU]/mL 0.270-4. 200 H [facility] ID Date Data Source [id number] 10/19/2019 07:01:00 AM [facility]) Name Value Range Interpretation Code Description Data Neva rce(s) Supporting Document(s) Reported Physicians See Note Reported Physici [place] ([facility]) Note: Reported Physicians:Ordering: EVELYN STONE AAttending: VINCENT ISSAConsulting: Marimaa PHAM To: Morenita LorraineCopy To: VINCENT ISSA ID Date Data Source [id number] 10/19/2019 07:57:00 AM [facility] Name Value Range Interpretation Code Description Data Neva rce(s) Supporting Document(s) BASIC METABOLIC PANEL [facility] BASIC METABOLIC PANEL Sodium [Moles/volume] in Serum or Plasma 134 mEq/L 134 - 153 [facility] Potassium [Moles/volume] in Serum or Plasma 3.9 mEq/L 3.6 - 5.0 [facility] Chloride [Moles/volume] in Serum or Plasma 97 mEq/L 98 - 107 L [facility] Carbon dioxide, total [Moles/volume] in Serum or Plasma 27 MEQ/L 22 - 30 [facility] Glucose [Mass/volume] in Serum or Plasma 114 MG/DL 65 - 110 H [facility] BUN 9 MG/DL 7 - [facility] Creat[facility] [Mass/volume] in Serum or Plasma 0.8 MG/DL 0.7 - 1.5 [facility] BUN/CREAT 11 8 - 27 [facility] [place] al Calcium [Mass/volume] in Serum or Plasma 9.0 MG/DL 8.4 - 10.2 [facility] Anion gap 3 in Serum or Plasma 10.0 mmol/L 8.0 - 16.0 [facility] 84 [facility] GFR >60 mL/min [facility] NON-AA GFR >60 mL/min [facility] Male GFR Inter prentation 20-49 yrs >60 mL/min Normal 50-59 yrs >56 mL/min Normal 60-69 yrs >49 mL/min Normal 70-79yrs >42 mL/min Normal 80 and above >35 mL/min Normal Female GFR Interpretation 20-39 yrs >60 mL/min Normal 40-49 yrs >58 mL/min Normal 50-59 yrs >51 mL/min Normal 60-69 yrs >45 mL/min Normal 70-79 yrs >39 mL/min Normal 80 and above >32 mL/min Normal ID Date Data Source [id number] 10/19/2019 07:26:00 AM EST [facility] Name Value Range Interpretation Code Description Data Neva rce(s) Supporting Document(s) CBC W/AUTOMATED DIFF [facility] COMPLETE BLOOD COUNT Leukocytes [#/volume] in Blood by Automated count 7.7 10^3/uL 4.2 - 1 1.0 [facility] Erythrocytes [#/volume] in Blood by Automated count 3.27 10^6/uL 4. 50 - 6.30 L [facility] Hemoglobin [Mass/volume] in Blood 10.3 g/dL 14.0 - 16.0 L [facility] Hematocrit [Volume Fraction] of Blood by Automated count 30.4 % 4 1.0 - 51.0 L [facility] Erythrocyte mean corpuscular volume [Entitic volume] by Auto mated count 93.0 fL 80.0 - 94.0 [facility] Erythrocyte mean corpuscular hemoglobin [Entitic mass] by Automated count 31.5 pg 27.0 - 34.0 [facility] Erythrocyte mean corpuscular hemoglobin concentration [Mass/volume] by Automated count 33.9 g/dL 31.0 - 36.0 [facility] Erythrocyte distribution width [Ratio] by Automated count 14.2 % 11.5 - 14.8 [facility] Platelets [#/volume] in Blood by Automated count 311 10^3/uL 150 - 45 0 [facility] Platelet mean volume [Entitic volume] in Blood by Automated count 8.3 fL 7.4 - 10.4 [facility] Neutrophils/100 leukocytes in Blood by Automated count 77.7 % 37. 0 - 80.0 [facility] Lymphocytes/100 leukocytes in Blood by Manual count 7.2 % 25.0 - 40.0 L [facility] Monocytes/100 leukocytes in Blood by Automated count 9.8 % 3.0 - 8.0 H [facility] Eosinophils/100 leukocytes in Blood by Automated count 3.9 % 0.0 - 7.0 [facility] Basophils/100 leukocytes in Blood by Automated count 0.6 % 0.0 - 2.0 [facility] %IG 0.8 % 0.0 - 0.0 H [facility] al %NRBC 0.0 % 0.0 - 0.0 [facility] Neutrophils [#/volume] in Blood by Automated count 6.01 10^3/uL 2.00 - 6.90 [facility] Lymphocytes [#/volume] in Blood by Automated count 0.56 10^3/uL 0.60 - 3.40 L [facility] Monocytes [#/volume] in Blood by Automated count 0.76 10^3/uL 0.00 - 0.90 [facility] Eosinophils [#/volume] in Blood by Automated count 0.30 10^3/uL 0.00 - 0.70 [facility] Basophils [#/volume] in Blood by Automated count 0.05 10^3/uL 0.00 - 0.20 [facility] #IG 0.06 10^3/uL 0.00 - 0.10 [facility] #NRBC 0.00 10^3/uL 0.00 - 0.00 [facility] MANUAL DIFF NOT INDICATED [facility] RBC MORPH NOT INDICATED [facility] ID Date Data Source [id number] 10/19/2019 07:01:00 AM EST [place] ([facility]) Name Value Range Interpretation Code Description Data Neva rce(s) Supporting Document(s) AFR AMER GFR >60 mL/min AFR AMER GFR [facility] ([facility]) Note: Responsible Observer: (CM) Egg donor age 84 yrs AGE [facility] ([facility]) Note: Responsible Observer: (CM) Anion gap in Body fluid 10.0 mmol/L ANION GAP [place] ([facility]) Note: Responsible Observer: (CM) BUN 9 MG/DL BUN [facility] ([facility]) Note: Responsible Observer: (CM) Basic metabolic panel - Blood See Note BASIC METABOLIC PANEL [place] ([facility]) Note: BASIC METABOLIC PANELResponsib le Observer: (CM) BUN/CREAT 11 BUN/CREAT [facility] ([facility]) Note: Responsible Observer: (CM) Calcium [Moles/volume] in Urine collected for unspecified durati on 9.0 MG/DL CALCIUM [facility] ([facility]) Note: Responsible Observer: (CM) Chloride [Moles/volume] in Serum, Plasma or Blood 97 mEq/L Below low normal CHLORIDE [facility] ([facility]) Note: Responsible Observer: (CM) CO2 27 MEQ/L CO2 [place] ([facility]) Note: Responsible Observer: (CM) Creatinine [Moles/volume] in Vitreous fluid 0.8 MG/DL CREATININE [place] ([facility]) Note: Responsible Observer: (CM) Glucose [Mass/volume] in Urine collected for unspecified duratio n 114 MG/DL Above high normal GLUCOSE [place] ([facility]) Note: Responsible Observer: (CM) NON-AA GFR >60 mL/min NON-AA GFR [place] ([facility]) Note: Male GFR Interprentation 20-49 yrs >60 mL/min Normal 50-59 yrs >56 mL/min Normal 60-69 yrs >49 mL/min Normal 70-79yrs >42 mL/min Normal 80 and above >35 mL/min Normal Female GFR Interpretation 20-39 yrs >60 mL/min Normal 40-49 yrs >58 mL/min Normal 50- 59 yrs >51 mL/min Normal 60-69 yrs >45 mL/min Normal 70-79 yrs >39 mL/min Normal 80 and above >32 mL/min NormalResponsible Observer: (CM) Potassium [Mass/volume] in Blood 3.9 mEq/L POT ASSIUM [place] ([facility]) Note: Responsible Observer: (CM) Sodium [Moles/volume] in Serum, Plasma or Blood 134 mEq/L SODIUM [place] ([facility]) Note: Responsible Observer: (CM) ID Date Data Source [id number] 10/19/2019 07:01:00 AM EST [place] ([facility]) Name Value Range Interpretation Code Description Data Neva rce(s) Supporting Document(s) Reported Physicians See Note Reported Physici ans [place] ([facility]) Note: Reported Physicians:Ordering: EVELYN STONE AAttending: VINCENT ISSAConsulting: Mariama PHAM To: Evelyn XavierCopladarius To: VINCENT ISSA ID Date Data Source [id number] 10/19/2019 07:01:00 AM EST [place] ([facility]) Name Value Range Interpretation Code Description Data Neva rce(s) Supporting Document(s) #BASO 0.05 10\\^3/uL #BASO [place] ([facility]) Note: Responsible Observer: (CM) #EOS 0.30 10\\^3/uL #EOS [place] ([facility]) Note: Responsible Observer: (CM) #LYMPH 0.56 10\\^3/uL Below low normal #LYMPH [place] [facility] ([facility]) Note: Responsible Observer: (CM) #IG 0.06 10\\^3/uL #IG [place] ([facility]) Note: Responsible Observer: (CM) #MONO 0.76 10\\^3/uL #MONO [place] ([facility]) Note: Responsible Observer: (CM) #NEUT 6.01 10\\^3/uL #NEUT [place] ([facility]) Note: Responsible Observer: (CM) #NRBC 0.00 10\\^3/uL #NRBC [place] ([facility]) Note: Responsible Observer: (CM) %IG 0.8 % Above high normal %IG [place] ([facility]) Note: Responsible Observer: (CM) %NRBC 0.0 % %NRBC [place] ([facility]) Note: Responsible Observer: (CM) BASO 0.6 % BASO [place] ([facility]) Note: Responsible Observer: (CM) CBC W/AUTOMATED DIFF See Note CBC W/AUTOMATED DIFF [place] ([facility]) Note: COMPLETE BLOOD COUNTResponsibl e Observer: (CM) EOS 3.9 % EOS [place] ([facility]) Note: Responsible Observer: (CM) Hematocrit [Pure volume fraction] of Blood by Automated count 30 .4 % Below low normal HEMATOCRIT [place] ([facility]) Note: Responsible Observer: (CM) Hemoglobin [Mass/volume] in Mixed venous blood by Oximetry 10.3 g/dL Below low normal HEMOGLOBIN [place] ([facility]) Note: Responsible Observer: (CM) LYMPH 7.2 % Below low normal LYMPH [place] [facility] [facility] Note: Responsible Observer: (CM) MANUAL DIFF NOT INDICATED MANUAL DIFF [place] ([facility]) Note: Responsible Observer: (CM) MCH 31.5 pg MCH [place] ([facility]) Note: Responsible Observer: (CM) MCV 93.0 fL MCV [place] ([facility]) Note: Responsible Observer: (CM) MCHC 33.9 g/dL MCHC [place] ([facility]) Note: Responsible Observer: (CM) MONO 9.8 % Above high normal MONO [place] ([facility]) Note: Responsible Observer: (CM) MPV 8.3 fL MPV [place] ([facility]) Note: Responsible Observer: (CM) Platelets [#/area] in Blood by Microscopy high power field 311 10\\^ 3/uL PLATELETS [place] ([facility]) Note: Responsible Observer: (CM) NEUT 77.7 % NEUT [place] ([facility]) Note: Responsible Observer: (CM) RBC 3.27 10\\^6/uL Below low normal RBC [place] ([facility]) Note: Responsible Observer: (CM) RBC MORPH NOT INDICATED RBC MORPH [facility] ([facility]) Note: Responsible Observer: (CM) RDW 14.2 % RDW [place] ([facility]) Note: Responsible Observer: (CM) WBC 7.7 10\\^3/uL WBC [place] ([facility]) Note: Responsible Observer: (CM) ID Date Data Source [id number] 10/18/2019 10:15:00 AM EST [place] ([facility]) Name Value Range Interpretation Code Description Data Neva rce(s) Supporting Document(s) Reported Physicians See Note Reported Physici ans [place] ([facility]) Note: Reported Physicians:Ordering: DK HANNON MAttending: VINCENT ISSAConsulting: SEBASTIÁN PHAMYNCopladarius To: Alanis CABRERA To: VINCENT ISSA ID Date Data Source [id number] 10/18/2019 10:15:00 AM EST [place] ([facility]) Name Value Range Interpretation Code Description Data Neva rce(s) Supporting Document(s) CBC NO DIFF See Note CBC NO DIFF [place] ([facility]) Note: COMPLETE BLOOD COUNTResponsibl e Observer: (BLD) Hemoglobin [Mass/volume] in Mixed venous blood by Oximetry 11.0 g/dL Below low normal HEMOGLOBIN [place] ([facility]) Note: Responsible Observer: (BLD) Hematocrit [Pure volume fraction] of Blood by Automated count 31 .7 % Below low normal HEMATOCRIT [place] ([facility]) Note: Responsible Observer: (BLD) MCH 31.9 pg MCH [place] ([facility]) Note: Responsible Observer: (BLD) MCHC 34.7 g/dL MCHC [place] ([facility]) Note: Responsible Observer: (BLD) MCV 91.9 fL MCV [place] ([facility]) Note: Responsible Observer: (BLD) Platelets [#/area] in Blood by Microscopy high power field 321 10\\^ 3/uL PLATELETS [place] ([facility]) Note: Responsible Observer: (BLD) MPV 8.0 fL MPV [place] ([facility]) Note: Responsible Observer: (BLD) RBC 3.45 10\\^6/uL Below low normal RBC [place] ([facility]) Note: Responsible Observer: (BLD) RDW 14.2 % RDW [place] ([facility]) Note: Responsible Observer: (BLD) WBC 9.5 10\\^3/uL WBC [place] ([facility]) Note: Responsible Observer: (BLD) ID Date Data Source [id number] 10/18/2019 10:15:00 AM EST [place] ([facility]) Name Value Range Interpretation Code Description Data Neva rce(s) Supporting Document(s) Reported Physicians See Note Reported Physici ans [place] ([facility]) Note: Reported Physicians:Ordering: DK HANNON MAttending: VINCENT ISSAConsulting: Mariama PHAM To: Alanis CABRERA To: VINCENT ISSA ID Date Data Source [id number] 10/18/2019 10:15:00 AM EST [place] ([facility]) Name Value Range Interpretation Code Description Data Neva rce(s) Supporting Document(s) A/G RATIO 1.8 A/G RATIO [place] ([facility]) Note: Responsible Observer: () AFR AMER GFR >60 mL/min AFR AMER GFR [place] ([facility]) Note: Male GFR Interprentation 20- 49 yrs >60 mL/min Normal 50-59 yrs >56 mL/min Normal 60-69 yrs >49 mL/min Normal 70- 79yrs >42 mL/min Normal 80 and above >35 mL/min Normal Female GFR Interpretation 20-39 yrs >60 mL/min Normal 40-49 yrs >58 mL/min Normal 50-59 yrs >51 mL/min Normal 60-69 yrs >45 mL/min Normal 70-79 yrs >39 mL/min Normal 80 and above >32 mL/min NormalResponsible Observer: () Albumin [Mass/volume] in Blood by Bromocresol purple ( BCP) dye binding method 4.2 G/DL ALBUMIN [place] ([facility]) Note: Responsible Observer: () Egg donor age 84 yrs AGE [facility] ([facility]) Note: Responsible Observer: () ALKALINE PHOS 112 U/L ALKALINE PHOS [place] ([facility]) Note: Responsible Observer: () BUN 10 MG/DL BUN [place] ([facility]) Note: Responsible Observer: () Anion gap in Body fluid 13.0 mmol/L ANION GAP [place] ([facility]) Note: Responsible Observer: () BUN/CREAT 13 BUN/CREAT [place] ([facility]) Note: Responsible Observer: () Chloride [Moles/volume] in Serum, Plasma or Blood 95 mEq/L Below low normal CHLORIDE [place] ([facility]) Note: Responsible Observer: () Calcium [Moles/volume] in Urine collected for unspecified durati on 9.3 MG/DL CALCIUM [place] ([facility]) Note: Responsible Observer: () CO2 24 MEQ/L CO2 [place] ([facility]) Note: Responsible Observer: () COMPREHENSIVE METABOLIC PANEL See Note COMPRE HENSIVE METABOLIC PANEL [place] ([facility]) Note: COMPREHENSIVE METABOLIC PANELR esponsible Observer: () Creatinine [Moles/volume] in Vitreous fluid 0.8 MG/DL CREATININE [place] ([facility]) Note: Responsible Observer: () Globulin [Mass/time] in 24 hour Urine 2.3 GM/DL Below low normal GLOBULIN [place] ([facility]) Note: Responsible Observer: () NON-AA GFR >60 mL/min NON-AA GFR [place] ([facility]) Note: Responsible Observer: () Glucose [Mass/volume] in Urine collected for unspecified duratio n 165 MG/DL Above high normal GLUCOSE [place] ([facility]) Note: Responsible Observer: DEE DEE) Potassium [Mass/volume] in Blood 4.0 mEq/L POT ASSIUM [place] ([facility]) Note: Responsible Observer: () SGOT/AST 14 U/L SGOT/AST [place] ([facility]) Note: Responsible Observer: () Sodium [Moles/volume] in Serum, Plasma or Blood 132 mEq/L Below low normal SODIUM [place] ([facility]) Note: Responsible Observer: () SGPT/ALT 11 U/L SGPT/ALT [place] ([facility]) Note: Responsible Observer: () TOTAL BILI <0.7 MG/DL TOTAL BILI [place] ([facility]) Note: Responsible Observer: DEE DEE) TOTAL PROTEIN 6.5 G/DL TOTAL PROTEIN [place] ([facility]) Note: Responsible Observer: () ID Date Data Source [id number] 10/18/2019 11:58:00 AM EST [facility] Name Value Range Interpretation Code Description Data Neva rce(s) Supporting Document(s) COMPREHENSIVE METABOLIC PANEL [facility] COMPREHENSIVE METABOLIC PANEL Sodium [Moles/volume] in Serum or Plasma 132 mEq/L 134 - 153 L [facility] Potassium [Moles/volume] in Serum or Plasma 4.0 mEq/L 3.6 - 5.0 [facility] Chloride [Moles/volume] in Serum or Plasma 95 mEq/L 98 - 107 L [facility] Carbon dioxide, total [Moles/volume] in Serum or Plasma 24 MEQ/L 22 - 30 [facility] Glucose [Mass/volume] in Serum or Plasma 165 MG/DL 65 - 110 H [facility] B[facility] 10 MG[facility]DL 7 [facility] Creat[facility] [Mass/volume] in Serum or Plasma 0.8 MG/DL 0.7 - 1.5 [facility] BUN/CREAT 13 8 - 27 [facility] [place] al Protein [Mass/volume] in Serum or Plasma 6.5 G/DL 6.3 - 8.2 [facility] Albumin [Mass/volume] in Serum or Plasma 4.2 G/DL 3.9 - 5.0 [facility] Globulin [Mass/volume] in Serum by calculation 2.3 GM/DL 2.4 - 3.2 L [facility] A/G RATIO 1.8 0.8 - 2.0 [facility] [place] al Calcium [Mass/volume] in Serum or Plasma 9.3 MG/DL 8.4 - 10.2 [facility] Bilirubin.total [Mass/volume] in Serum or Plasma <0.7 MG/DL 0.2 - 1.3 [facility] Alkaline phosphatase [Enzymatic activity/volume] in Serum or Plasma 112 U/L 38 - 126 [facility] Aspartate aminotransferase [Enzymatic activity/volume] in Serum or Plasma 14 U/L 5 - 40 [facility] Alanine aminotransferase [Enzymatic activity/volume] in Seru m or Plasma 11 U/L 7 - 56 [facility] Anion gap 3 in Serum or Plasma 13.0 mmol/L 8.0 - 16.0 [facility]GE 84 [facility] >60 mL/min [facility] AFR AMER GFR >60 mL/min [facility] spital Male GFR In terprentation 20-49 yrs >60 mL/min Normal 50-59 yrs >56 mL/min Normal 60-69 yrs >49 mL/min Normal 70-79yrs >42 mL/min Normal 80 and above >35 mL/min Normal Female GFR Interpretation 20-39 yrs >60 mL/min Normal 40-49 yrs >58 mL/min Normal 50-59 yrs >51 mL/min Normal 60-69 yrs >45 mL/min Normal 70-79 yrs >39 mL/min Normal 80 and above >32 mL/min Normal ID Date Data Source [id number] 10/18/2019 10:30:00 AM EST [facility] Name Value Range Interpretation Code Description Data Neva rce(s) Supporting Document(s) CBC NO DIFF [facility] COMPLETE BLOOD COUNT Leukocytes [#/volume] in Blood by Automated count 9.5 10^3/uL 4.2 - 1 1.0 [facility] Erythrocytes [#/volume] in Blood by Automated count 3.45 10^6/uL 4. 50 - 6.30 L [facility] Hemoglobin [Mass/volume] in Blood 11.0 g/dL 14.0 - 16.0 L [facility] Hematocrit [Volume Fraction] of Blood by Automated count 31.7 % 4 1.0 - 51.0 L [facility] Erythrocyte mean corpuscular volume [Entitic volume] by Auto mated count 91.9 fL 80.0 - 94.0 [facility] Erythrocyte mean corpuscular hemoglobin [Entitic mass] by Automated count 31.9 pg 27.0 - 34.0 [facility] Erythrocyte mean corpuscular hemoglobin concentration [Mass/volume] by Automated count 34.7 g/dL 31.0 - 36.0 [facility] Erythrocyte distribution width [Ratio] by Automated count 14.2 % 11.5 - 14.8 [facility] Platelets [#/volume] in Blood by Automated count 321 10^3/uL 150 - 45 0 [facility] Platelet mean volume [Entitic volume] in Blood by Automated count 8.0 fL 7.4 - 10.4 [facility] ID Date Data Source [id number] 10/17/2019 08:02:00 AM [facility] ([facility]) Name Value Range Interpretation Code Description Data Neva rce(s) Supporting Document(s) Reported Physicians See Note Reported Physici ans [place] ([facility]) Note: Reported Physicians:Ordering: EVELYN STONE AAttending: VINCENT ISSAConsulting: RODY PHAMCopladarius To: Evelyn XavierCopladarius To: VINCENT ISSA ID Date Data Source [id number] 10/17/2019 08:02:00 AM [facility] ([facility]) Name Value Range Interpretation Code Description Data Neva rce(s) Supporting Document(s) Egg donor age 84 yrs AGE [place] ([facility]) Note: Responsible Observer: () AFR AMER GFR >60 mL/min AFR AMER GFR [place] ([facility]) Note: Responsible Observer: () Basic metabolic panel - Blood See Note BASIC METABOLIC PANEL [place] ([facility]) Note: BASIC METABOLIC PANELResponsib le Observer: () Anion gap in Body fluid 12.0 mmol/L ANION GAP [place] ([facility]) Note: Responsible Observer: () BUN 8 MG/DL BUN [place] ([facility]) Note: Responsible Observer: () BUN/CREAT 11 BUN/CREAT [place] ([facility]) Note: Responsible Observer: () Calcium [Moles/volume] in Urine collected for unspecified durati on 9.3 MG/DL CALCIUM [place] ([facility]) Note: Responsible Observer: () CO2 28 MEQ/L CO2 [place] ([facility]) Note: Responsible Observer: DEE DEE) Creatinine [Moles/volume] in Vitreous fluid 0.7 MG/DL CREATININE [place] ([facility]) Note: Responsible Observer: () Chloride [Moles/volume] in Serum, Plasma or Blood 92 mEq/L Below low normal CHLORIDE [place] ([facility]) Note: Responsible Observer: () NON-AA GFR >60 mL/min NON-AA GFR [place] ([facility]) Note: Male GFR Interprentation 20-49 yrs >60 mL/min Normal 50-59 yrs >56 mL/min Normal 60-69 yrs >49 mL/min Normal 70-79yrs >42 mL/min Normal 80 and above >35 mL/min Normal Female GFR Interpretation 20-39 yrs >60 mL/min Normal 40-49 yrs >58 mL/min Normal 50- 59 yrs >51 mL/min Normal 60-69 yrs >45 mL/min Normal 70-79 yrs >39 mL/min Normal 80 and above >32 mL/min NormalResponsible Observer: () Glucose [Mass/volume] in Urine collected for unspecified duratio n 128 MG/DL Above high normal GLUCOSE [place] ([facility]) Note: Responsible Observer: DEE DEE) Sodium [Moles/volume] in Serum, Plasma or Blood 132 mEq/L Below low normal SODIUM [place] ([facility]) Note: Responsible Observer: () Potassium [Mass/volume] in Blood 3.8 mEq/L POT ASSIUM [place] ([facility]) Note: Responsible Observer: () ID Date Data Source [id number] 10/17/2019 08:45:00 AM EST [facility] Name Value Range Interpretation Code Description Data Neva rce(s) Supporting Document(s) BASIC METABOLIC PANEL [facility] BASIC METABOLIC PANEL Sodium [Moles/volume] in Serum or Plasma 132 mEq/L 134 - 153 L [facility] Potassium [Moles/volume] in Serum or Plasma 3.8 mEq/L 3.6 - 5.0 [facility] Chloride [Moles/volume] in Serum or Plasma 92 mEq/L 98 - 107 L [facility] Carbon dioxide, total [Moles/volume] in Serum or Plasma 28 MEQ/L 22 - 30 [facility] Glucose [Mass/volume] in Serum or Plasma 128 MG/DL 65 - 110 H [facility] BUN 8 MG/DL 7 - 21 [facility] al Creatinine [Mass/volume] in Serum or Plasma 0.7 MG/DL 0.7 - 1.5 [facility] BUN/CREAT 11 8 - 27 [facility] [place] al Calcium [Mass/volume] in Serum or Plasma 9.3 MG/DL 8.4 - 10.2 [facility] Anion gap 3 in Serum or Plasma 12.0 mmol/L 8.0 - 16.0 [facility] 84 [facility] GFR >60 mL/min [facility] Ho spital NON-AA GFR >60 mL/min [facility] Hosp ital Male GFR Inter prentation 20-49 yrs >60 mL/min Normal 50-59 yrs >56 mL/min Normal 60-69 yrs >49 mL/min Normal 70-79yrs >42 mL/min Normal 80 and above >35 mL/min Normal Female GFR Interpretation 20-39 yrs >60 mL/min Normal 40-49 yrs >58 mL/min Normal 50-59 yrs >51 mL/min Normal 60-69 yrs >45 mL/min Normal 70-79 yrs >39 mL/min Normal 80 and above >32 mL/min Normal ID Date Data Source [id number] 10/14/2019 12:22:21 PM EST [facility] Name Value Range Interpretation Code Description Data Neva rce(s) Supporting Document(s) Discharge Summary [facility] [id number] [file] [id number] ID Date Data Source [id number] 10/14/2019 05:57:00 AM EST [place] ([facility]) Name Value Range Interpretation Code Description Data Neva rce(s) Supporting Document(s) Reported Physicians See Note Reported Physici ans [place] ([facility]) Note: Reported Physicians:Ordering: VINCENT VALDEZding: VINCENT ISSAConsulting: SEBASTIÁN PHAMYNCopladarius To: VINCENT ISSA ID Date Data Source [id number] 10/14/2019 05:57:00 AM EST [place] ([facility]) Name Value Range Interpretation Code Description Data Neva rce(s) Supporting Document(s) #BASO 0.04 10\\^3/uL #BASO [facility] ([facility]) Note: Responsible Observer: (CM) #IG 0.05 10\\^3/uL #IG [place] ([facility]) Note: Responsible Observer: (CM) #LYMPH 0.46 10\\^3/uL Below low normal #LYMPH [address] ([facility]) Note: Responsible Observer: (CM) #EOS 0.31 10\\^3/uL #EOS [place] ([facility]) Note: Responsible Observer: (CM) #NEUT 6.06 10\\^3/uL #NEUT [facility] ([facility]) Note: Responsible Observer: (CM) #MONO 0.73 10\\^3/uL #MONO [facility] ([facility]) Note: Responsible Observer: (CM) #NRBC 0.00 10\\^3/uL #NRBC [place] ([facility]) Note: Responsible Observer: (CM) %IG 0.7 % Above high normal %IG [place] ([facility]) Note: Responsible Observer: (CM) %NRBC 0.0 % %NRBC [place] ([facility]) Note: Responsible Observer: (CM) BASO 0.5 % BASO [place] ([facility]) Note: Responsible Observer: (CM) CBC W/AUTOMATED DIFF See Note CBC W/AUTOMATED DIFF [place] ([facility]) Note: COMPLETE BLOOD COUNTResponsibl e Observer: (CM) EOS 4.1 % EOS [place] ([facility]) Note: Responsible Observer: (CM) Hematocrit [Pure volume fraction] of Blood by Automated count 26 .3 % Below low normal HEMATOCRIT [place] ([facility]) Note: Responsible Observer: (CM) LYMPH 6.0 % Below low normal LYMPH [place] ([facility]) Note: Responsible Observer: (CM) Hemoglobin [Mass/volume] in Mixed venous blood by Oximetry 9.1 g /dL Below low normal HEMOGLOBIN [place] ([facility]) Note: Responsible Observer: (CM) MANUAL DIFF NOT INDICATED MANUAL DIFF [place] ([facility]) Note: Responsible Observer: (CM) MCHC 34.6 g/dL MCHC [place] ([facility]) Note: Responsible Observer: (CM) MCH 31.8 pg MCH [place] ([facility]) Note: Responsible Observer: (CM) MPV 8.4 fL MPV [place] ([facility]) Note: Responsible Observer: (CM) NEUT 79.2 % NEUT [place] ([facility]) Note: Responsible Observer: (CM) MCV 92.0 fL MCV [place] ([facility]) Note: Responsible Observer: (CM) MONO 9.5 % Above high normal MONO [place] ([facility]) Note: Responsible Observer: (CM) RBC 2.86 10\\^6/uL Below low normal RBC [place] ([facility]) Note: Responsible Observer: (CM) Platelets [#/area] in Blood by Microscopy high power field 268 10\\^ 3/uL PLATELETS [place] ([facility]) Note: Responsible Observer: (CM) RDW 14.6 % RDW [place] ([facility]) Note: Responsible Observer: (CM) RBC MORPH NOT INDICATED RBC MORPH [facility] ([facility]) Note: Responsible Observer: (CM) WBC 7.7 10\\^3/uL WBC [place] ([facility]) Note: Responsible Observer: (CM) ID Date Data Source [id number] 10/14/2019 05:57:00 AM EST [place] ([facility]) Name Value Range Interpretation Code Description Data Neva rce(s) Supporting Document(s) Reported Physicians See Note Reported Physici ans [place] ([facility]) Note: Reported Physicians:Ordering: VINCENT VALDEZ BAttending: VINCENT ISSAConsulting: PABLITO PHAMHRYNCopladarius To: VINCENT ISSA ID Date Data Source [id number] 10/14/2019 05:57:00 AM EST [place] ([facility]) Name Value Range Interpretation Code Description Data Neva rce(s) Supporting Document(s) AFR AMER GFR >60 mL/min AFR AMER GFR [place] ([facility]) Note: Male GFR Interprentation 20- 49 yrs >60 mL/min Normal 50-59 yrs >56 mL/min Normal 60-69 yrs >49 mL/min Normal 70- 79yrs >42 mL/min Normal 80 and above >35 mL/min Normal Female GFR Interpretation 20-39 yrs >60 mL/min Normal 40-49 yrs >58 mL/min Normal 50-59 yrs >51 mL/min Normal 60-69 yrs >45 mL/min Normal 70-79 yrs >39 mL/min Normal 80 and above >32 mL/min NormalResponsible Observer: (CM) A/G RATIO 1.8 A/G RATIO [place] ([facility]) Note: Responsible Observer: (CM) Albumin [Mass/volume] in Blood by Bromocresol purple ( BCP) dye binding method 3.6 G/DL Below low normal ALBUMIN [place] ([facility]) Note: Responsible Observer: (CM) Egg donor age 84 yrs AGE [place] ([facility]) Note: Responsible Observer: (CM) ALKALINE PHOS 98 U/L ALKALINE PHOS [place] ([facility]) Note: Responsible Observer: (CM) Anion gap in Body fluid 11.0 mmol/L ANION GAP [place] ([facility]) Note: Responsible Observer: (CM) BUN 5 MG/DL Below low normal BUN [place] ([facility]) Note: Responsible Observer: (CM) BUN/CREAT 7 Below low normal BUN/CREAT [place] ([facility]) Note: Responsible Observer: (CM) Calcium [Moles/volume] in Urine collected for unspecified durati on 8.8 MG/DL CALCIUM [place] ([facility]) Note: Responsible Observer: (CM) Chloride [Moles/volume] in Serum, Plasma or Blood 92 mEq/L Below low normal CHLORIDE [place] ([facility]) Note: Responsible Observer: (CM) COMPREHENSIVE METABOLIC PANEL See Note COMPRE HENSIVE METABOLIC PANEL [place] ([facility]) Note: COMPREHENSIVE METABOLIC PANELR esponsible Observer: (CM) Creatinine [Moles/volume] in Vitreous fluid 0.7 MG/DL CREATININE [place] ([facility]) Note: Responsible Observer: (CM) CO2 26 MEQ/L CO2 [place] ([facility]) Note: Responsible Observer: (CM) Globulin [Mass/time] in 24 hour Urine 2.0 GM/DL Below low normal GLOBULIN [place] ([facility]) Note: Responsible Observer: (CM) Glucose [Mass/volume] in Urine collected for unspecified duratio n 117 MG/DL Above high normal GLUCOSE [place] ([facility]) Note: Responsible Observer: (CM) Potassium [Mass/volume] in Blood 4.0 mEq/L POT ASSIUM [place] ([facility]) Note: Responsible Observer: (CM) NON-AA GFR >60 mL/min NON-AA GFR [place] ([facility]) Note: Responsible Observer: (CM) SGOT/AST 11 U/L SGOT/AST [place] ([facility]) Note: Responsible Observer: (CM) TOTAL BILI <0.7 MG/DL TOTAL BILI [place] ([facility]) Note: Responsible Observer: (CM) SGPT/ALT 12 U/L SGPT/ALT [place] ([facility]) Note: Responsible Observer: (CM) Sodium [Moles/volume] in Serum, Plasma or Blood 129 mEq/L Below low normal SODIUM [place] ([facility]) Note: Responsible Observer: (CM) TOTAL PROTEIN 5.6 G/DL Below low normal [facility] Note: Responsible Observer: (CM) ID Date Data Source [id number] 10/14/2019 06:52:00 AM EST [facility] Name Value Range Interpretation Code Description Data Neva rce(s) Supporting Document(s) COMPREHENSIVE METABOLIC PANEL [facility] COMPREHENSIVE METABOLIC PANEL Sodium [Moles/volume] in Serum or Plasma 129 mEq/L 134 - 153 L [facility] Potassium [Moles/volume] in Serum or Plasma 4.0 mEq/L 3.6 - 5.0 [facility] Chloride [Moles/volume] in Serum or Plasma 92 mEq/L 98 - 107 L [facility] Carbon dioxide, total [Moles/volume] in Serum or Plasma 26 MEQ/L 22 - 30 [facility] Glucose [Mass/volume] in Serum or Plasma 117 MG/DL 65 - 110 H [facility] BUN 5 MG/DL 7 - [address] [facility] al Creatinine [Mass/volume] in Serum or Plasma 0.7 MG/DL 0.7 - 1.5 [facility] BUN/CREAT 7 8 - [address] [facility] [place] al Protein [Mass/volume] in Serum or Plasma 5.6 G/DL 6.3 - 8.2 L [facility] Albumin [Mass/volume] in Serum or Plasma 3.6 G/DL 3.9 - 5.0 L [facility] Globulin [Mass/volume] in Serum by calculation 2.0 GM/DL 2.4 - 3.2 L [facility] A/G RATIO 1.8 0.8 - 2.0 [facility] Calcium [Mass/volume] in Serum or Plasma 8.8 MG/DL 8.4 - 10.2 [facility] Bilirubin.total [Mass/volume] in Serum or Plasma <0.7 MG/DL 0.2 - 1.3 [facility] Alkaline phosphatase [Enzymatic activity/volume] in Serum or Plasma 98 U/L 38 - 126 [facility] Aspartate aminotransferase [Enzymatic activity/volume] in Serum or Plasma 11 U/L 5 - 40 [facility] Alanine aminotransferase [Enzymatic activity/volume] in Seru m or Plasma 12 U/L 7 - 56 [facility] Anion gap 3 in Serum or Plasma 11.0 mmol/L 8.0 - 16.0 [facility] AGE 84 yrs [facility] NON-AA GFR >60 mL/min [facility] ital AFR AMER GFR >60 mL/min [facility] Ho spital Male GFR In terprentation 20-49 yrs >60 mL/min Normal 50-59 yrs >56 mL/min Normal 60-69 yrs >49 mL/min Normal 70-79yrs >42 mL/min Normal 80 and above >35 mL/min Normal Female GFR Interpretation 20-39 yrs >60 mL/min Normal 40-49 yrs >58 mL/min Normal 50-59 yrs >51 mL/min Normal 60-69 yrs >45 mL/min Normal 70-79 yrs >39 mL/min Normal 80 and above >32 mL/min Normal ID Date Data Source [id number] 10/14/2019 06:28:00 AM EST [facility] Name Value Range Interpretation Code Description Data Neva rce(s) Supporting Document(s) CBC W/AUTOMATED DIFF [facility] COMPLETE BLOOD COUNT Leukocytes [#/volume] in Blood by Automated count 7.7 10^3/uL 4.2 - 1 1.0 [facility] Erythrocytes [#/volume] in Blood by Automated count 2.86 10^6/uL 4. 50 - 6.30 L [facility] Hemoglobin [Mass/volume] in Blood 9.1 g/dL 14.0 - 16.0 L [facility] Hematocrit [Volume Fraction] of Blood by Automated count 26.3 % 4 1.0 - 51.0 L [facility] Erythrocyte mean corpuscular volume [Entitic volume] by Auto mated count 92.0 fL 80.0 - 94.0 [facility] Erythrocyte mean corpuscular hemoglobin [Entitic mass] by Automated count 31.8 pg 27.0 - 34.0 [facility] Erythrocyte mean corpuscular hemoglobin concentration [Mass/volume] by Automated count 34.6 g/dL 31.0 - 36.0 [facility] Erythrocyte distribution width [Ratio] by Automated count 14.6 % 11.5 - 14.8 [facility] Platelets [#/volume] in Blood by Automated count 268 10^3/uL 150 - 45 0 [facility] Platelet mean volume [Entitic volume] in Blood by Automated count 8.4 fL 7.4 - 10.4 [facility] Neutrophils/100 leukocytes in Blood by Automated count 79.2 % 37. 0 - 80.0 [facility] Lymphocytes/100 leukocytes in Blood by Manual count 6.0 % 25.0 - 40.0 L [facility] Monocytes/100 leukocytes in Blood by Automated count 9.5 % 3.0 - 8.0 H [facility] Eosinophils/100 leukocytes in Blood by Automated count 4.1 % 0.0 - 7.0 [facility] Basophils/100 leukocytes in Blood by Automated count 0.5 % 0.0 - 2.0 [facility] %IG 0.7 % [facility] % 0.0 - 0.0 [facility] [place] al Neutrophils [#/volume] in Blood by Automated count 6.06 10^3/uL 2.00 - 6.90 [facility] Lymphocytes [#/volume] in Blood by Automated count 0.46 10^3/uL 0.60 - 3.40 L [facility] Monocytes [#/volume] in Blood by Automated count 0.73 10^3/uL 0.00 - 0.90 [facility] Eosinophils [#/volume] in Blood by Automated count 0.31 10^3/uL 0.00 - 0.70 [facility] Basophils [#/volume] in Blood by Automated count 0.04 10^3/uL 0.00 - 0.20 [facility] #IG 0.05 10^3/uL 0.00 - 0.10 [facility] ospital #NRBC 0.00 10^3/uL 0.00 - 0.00 [facility]spital MANUAL DIFF NOT INDICATED [facility] RBC MORPH NOT INDICATED [facility] spital ID Date Data Source [id number] 10/13/2019 01:46:18 PM [facility] Name Value Range Interpretation Code Description Data Neva rce(s) Supporting Document(s) Leukocytes [#/volume] in Blood by Automated count 8.2 10*3/uL 4-10 [facility] Erythrocytes [#/volume] in Blood by Automated count 2.89 10*6/uL 4.6- 6.1 L [facility] Hemoglobin [Mass/volume] in Blood 9.5 g/dL 13.5-18 L [facility] Hematocrit [Volume Fraction] of Blood by Automated count 27.1 % 4 1-53 L [facility] Erythrocyte mean corpuscular volume [Entitic volume] by Auto mated count 93.7 fL 80-96 [facility] Erythrocyte mean corpuscular hemoglobin [Entitic mass] by Automated count 33.0 pg 27-33 [facility] Erythrocyte mean corpuscular hemoglobin concentration [Mass/volume] by Automated count 35.2 g/dL 32.0-36.0 [facility] E[facility]throcyte distribution width [Ratio] by Automated count 15.2 % 11.5-14.5 H [facility] Platelets [#/volume] in Blood by Automated count 292 10*3/uL 150-400 [facility] Differential cell count method - Blood [facility] Neutrophils/100 leukocytes in Blood by Automated count 80 % [facility] Lymphocytes/100 leukocytes in Blood by Automated count 7 % [facility] Monocytes/100 leukocytes in Blood by Automated count 9 % [facility] Eosinophils/100 leukocytes in Blood by Automated count 3 % [facility] Basophils/100 leukocytes in Blood by Automated count 1 % [facility] Neutrophils [#/volume] in Blood by Automated count 6.58 10*3/uL 1.8-7 .0 [facility] Lymphocytes [#/volume] in Blood by Automated count 0.56 10*3/uL 1.2-4 .0 L [facility] Monocytes [#/volume] in Blood by Automated count 0.72 10*3/uL 0-0.8 [facility] Eosinophils [#/volume] in Blood by Automated count 0.23 10*3/uL 0-0.5 [facility] Basophils [#/volume] in Blood by Automated count 0.09 10*3/uL 0-0.2 [facility] Nucleated erythrocytes/100 leukocytes [Ratio] in Blood by Automated count 0 /100{WBCs} 0-0 [facility] ID Date Data Source [id number] 10/13/2019 02:05:47 PM [facility] Name Value Range Interpretation Code Description Data Neva rce(s) Supporting Document(s) Bicarbonate [Moles/volume] in Serum 24 mmol/L 22-29 [facility] Chloride [Moles/volume] in Serum or Plasma 93 mmol/L 98-107 L [facility] Creatinine [Mass/volume] in Serum or Plasma 0.74 mg/dL 0.70-1.20 [facility] Glucose [Mass/volume] in Serum or Plasma 156 mg/dL 70-140 H [facility] Potassium [Moles/volume] in Serum or Plasma 4.0 mmol/L 3.4-5.1 [facility] Sodium [Moles/volume] in Serum or Plasma 127 mmol/L 136-145 L [facility] Urea nitrogen [Mass/volume] in Serum or Plasma 5 mg/dL 8-23 [facility] Anion gap 3 in Serum or Plasma 10 mmol/L 8-15 [facility] Osmolality of Serum or Plasma by calculation 264 mosm/kg 275-300 [facility] Creatinine/Urea nitrogen [Mass Ratio] in Serum or Plasma 7 [facility] Calcium [Mass/volume] in Serum or Plasma 8.5 mg/dL 8.8-10.2 [facility] Glomerular filtration rate/1.73 sq M pre dicted among non-blacks [Volume Rate/Area] in Serum or Plasma by Creatinine-based formula (MDRD) >6 0 [facility] Glomerular filtration rate/1.73 sq M pre dicted among blacks [Volume Rate/Area] in Serum or Plasma by Creatinine-based formula (MDRD) >60 [facility] ID Date Data Source [id number] 10/12/2019 01:25:16 AM [facility] Name Value Range Interpretation Code Description Data Neva e(s) Supporting Document(s) Leukocytes [#/volume] in Blood by Automated count 6.7 10*3/uL 4-10 [facility] Erythrocytes [#/volume] in Blood by Automated count 2.64 10*6/uL 4.6- 6.1 [facility] Hemoglobin [Mass/volume] in Blood 8.7 g/dL 13.5-18 L [facility] Hematocrit [Volume Fraction] of Blood by Automated count 24.7 % 4 1-53 [facility] Erythrocyte mean corpuscular volume [Entitic volume] by Auto mated count 93.4 fL 80-96 [facility] Erythrocyte mean corpuscular hemoglobin [Entitic mass] by Automated count 32.9 pg 27-33 [facility] Erythrocyte mean corpuscular hemoglobin concentration [Mass/volume] by Automated count 35.2 g/dL 32.0-36.0 [facility] Erythrocyte distribution width [Ratio] by Automated count 15.1 % 11.5-14.5 H [facility] Platelets [#/volume] in Blood by Automated count 281 10*3/uL 150-400 [facility] Differential cell count method - Blood [facility] Neutrophils/100 leukocytes in Blood by Automated count 77 % [facility] Lymphocytes/100 leukocytes in Blood by Automated count 9 % [facility] Monocytes/100 leukocytes in Blood by Automated count 10 % [facility] Eosinophils/100 leukocytes in Blood by Automated count 3 % [facility] Basophils/100 leukocytes in Blood by Automated count 1 % [facility] Neutrophils [#/volume] in Blood by Automated count 5.15 10*3/uL 1.8-7 .0 [facility] Lymphocytes [#/volume] in Blood by Automated count 0.60 10*3/uL 1.2-4 .0 L [facility] Monocytes [#/volume] in Blood by Automated count 0.69 10*3/uL 0-0.8 [facility] Eosinophils [#/volume] in Blood by Automated count 0.22 10*3/uL 0-0.5 [facility] Basophils [#/volume] in Blood by Automated count 0.06 10*3/uL 0-0.2 [facility] Nucleated erythrocytes/100 leukocytes [Ratio] in Blood by Automated count 0 /100{WBCs} 0-0 [facility] ID Date Data Source [id number] 10/12/2019 01:54:48 AM [facility] Name Value Range Interpretation Code Description Data Neva rce(s) Supporting Document(s) Bicarbonate [Moles/volume] in Serum 23 mmol/L 22-29 [facility] Chloride [Moles/volume] in Serum or Plasma 95 mmol/L 98-107 L [facility] Creatinine [Mass/volume] in Serum or Plasma 0.59 mg/dL 0.70-1.20 L [facility] Glucose [Mass/volume] in Serum or Plasma 115 mg/dL 70-140 [facility] Potassium [Moles/volume] in Serum or Plasma 3.3 mmol/L 3.4-5.1 L [facility] Sodium [Moles/volume] in Serum or Plasma 129 mmol/L 136-145 L [facility] Urea nitrogen [Mass/volume] in Serum or Plasma 6 mg/dL 8-23 L [facility] Anion gap 3 in Serum or Plasma 11 mmol/L 8-15 [facility] Osmolality of Serum or Plasma by calculation 267 mosm/kg 275-300 L [facility] Creatinine/Urea nitrogen [Mass Ratio] in Serum or Plasma 10 [facility] Calcium [Mass/volume] in Serum or Plasma 8.4 mg/dL 8.8-10.2 L [facility] Glomerular filtration rate/1.73 sq M pre dicted among non-blacks [Volume Rate/Area] in Serum or Plasma by Creatinine-based formula (MDRD) >6 0 [facility] Glomerular filtration rate/1.73 sq M pre dicted among blacks [Volume Rate/Area] in Serum or Plasma by Creatinine-based formula (MDRD) >60 [facility] ID Date Data Source [id number] 10/11/2019 04:54:04 PM [facility] Name Value Range Interpretation Code Description Data Neva rce(s) Supporting Document(s) Glucose [Mass/volume] in Capillary blood by Glucometer 70 mg/dL 70- 140 [facility] ID Date Data Source [id number] 10/11/2019 04:37:54 AM [facility] Name Value Range Interpretation Code Description Data Neva rce(s) Supporting Document(s) Leukocytes [#/volume] in Blood by Automated count 6.7 10*3/uL 4-10 [facility] Erythrocytes [#/volume] in Blood by Automated count 2.82 10*6/uL 4.6- 6.1 L [facility] Hemoglobin [Mass/volume] in Blood 9.3 g/dL 13.5-18 L [facility] Hematocrit [Volume Fraction] of Blood by Automated count 26.2 % 4 1-53 L [facility] Erythrocyte mean corpuscular volume [Entitic volume] by Auto mated count 93.0 fL 80-96 [facility] Erythrocyte mean corpuscular hemoglobin [Entitic mass] by Automated count 33.2 pg 27-33 H [facility] Erythrocyte mean corpuscular hemoglobin concentration [Mass/volume] by Automated count 35.7 g/dL 32.0-36.0 [facility] Erythrocyte distribution width [Ratio] by Automated count 15.5 % 11.5-14.5 H [facility] Platelets [#/volume] in Blood by Automated count 263 10*3/uL 150-400 [facility] Differential cell count method - Blood [facility] Neutrophils/100 leukocytes in Blood by Automated count 78 % [facility] Lymphocytes/100 leukocytes in Blood by Automated count 7 % [facility] Monocytes/100 leukocytes in Blood by Automated count 9 % [facility] Eosinophils/100 leukocytes in Blood by Automated count 5 % [facility] Basophils/100 leukocytes in Blood by Automated count 1 % [facility] Neutrophils [#/volume] in Blood by Automated count 5.23 10*3/uL 1.8-7 .0 [facility] Lymphocytes [#/volume] in Blood by Automated count 0.43 10*3/uL 1.2-4 .0 L [facility] Monocytes [#/volume] in Blood by Automated count 0.62 10*3/uL 0-0.8 [facility] Eosinophils [#/volume] in Blood by Automated count 0.34 10*3/uL 0-0.5 [facility] Basophils [#/volume] in Blood by Automated count 0.05 10*3/uL 0-0.2 [facility] Nucleated erythrocytes/100 leukocytes [Ratio] in Blood by Automated count 0 /100{WBCs} 0-0 [facility] ID Date Data Source [id number] 10/11/2019 05:02:16 AM [facility] Name Value Range Interpretation Code Description Data Neva rce(s) Supporting Document(s) Bicarbonate [Moles/volume] in Serum 25 mmol/L 22-29 [facility] Chloride [Moles/volume] in Serum or Plasma 93 mmol/L 98-107 L [facility] Creatinine [Mass/volume] in Serum or Plasma 0.59 mg/dL 0.70-1.20 L [facility] Glucose [Mass/volume] in Serum or Plasma 123 mg/dL 70-140 [facility] Potassium [Moles/volume] in Serum or Plasma 3.7 mmol/L 3.4-5.1 [facility] Sodium [Moles/volume] in Serum or Plasma 128 mmol/L 136-145 L [facility] Urea nitrogen [Mass/volume] in Serum or Plasma 6 mg/dL 8-23 L [facility] Anion gap 3 in Serum or Plasma 10 mmol/L 8-15 [facility] Osmolality of Serum or Plasma by calculation 265 mosm/kg 275-300 L [facility] Creatinine/Urea nitrogen [Mass Ratio] in Serum or Plasma 10 [facility] Calcium [Mass/volume] in Serum or Plasma 8.5 mg/dL 8.8-10.2 L [facility] Glomerular filtration rate/1.73 sq M pre dicted among non-blacks [Volume Rate/Area] in Serum or Plasma by Creatinine-based formula (MDRD) >6 0 [facility] Glomerular filtration rate/1.73 sq M pre dicted among blacks [Volume Rate/Area] in Serum or Plasma by Creatinine-based formula (MDRD) >60 [facility] ID Date Data Source [id number] 10/10/2019 07:04:04 PM [facility] Name Value Range Interpretation Code Description Data Neva rce(s) Supporting Document(s) [facility] [id number]/PVAfbHWYat1PgMFtjQXy2GNddTBPtY1JxVYE0xE3iBRD5PEpESaXgCPwoVmRm [facility] [file] [id number]+IWmekLUbiMmuCAKOCtO6EUFwYJtzTRRFTe3P ID Date Data Source [id number] 10/13/2019 09:25:30 AM [facility] Service Cmnt XXX-Imp : O+P Stl Conc : Io dine wet mount: NO ova and parasites seen. One negative specimen does not rule out the possibility of a parasitic infection. Routine ova and parasite examination does not include Cryptosporidium, Cyclospora, Cystoisospora, or microsporidia.Trichrome stain:NO ova and parasites seen. One negative specimen does not rule out the possibility of a parasitic infection. Routine ova and parasites examination does not include Cryptosporidium, Cystoisospora (Isospora), or Microsporidium. Name Value Range Interpretation Code Description Data Neva rce(s) Supporting Document(s) ID Date Data Source [id number] 10/11/2019 09:57:25 AM [facility] Service Cmnt XXX-Imp : GI Panel : PCR Re sultsC coli,jej,upsa DNA Stl Ql MELODIE non- probe : Deoxyribonucleic acid of CampylobacterCdiff tox tcdA, tcdB Stl Ql MELODIE non-probe : Not DetectedP shigelloides DNA Stl Ql MELODIE non-probe : Not DetectedS ent, bong DNA Stl Ql MELODIE non-probe : Not DetectedV chol,para,vul DNA Stl Ql MELODIE non-probe : Not DetectedV cholerae DNA Stl Ql MELODIE non-probe : Not DetectedY enterocol DNA Stl Ql MELODIE non-probe : Not DetectedEAEC Harish plas aggR, aatA St MELODIE on-probe : Not DetectedEnteropathogenic E coli : Not DetectedETEC ltA, st1a, st1b tox St MELODIE non-probe : Not DetectedE coli stx1,stx2 Stl Ql MELODIE non-probe : Not DetectedE coli O157 DNA Stl Ql MELODIE non-probe : Not applicableShigella sp,EIEC ipaH St MELODIE non-probe : Not DetectedCryptosp DNA Stl Ql MELODIE non-probe : Not DetectedC cayetanensis DNA Stl Ql MELODIE non-probe : Not DetectedE histolyt DNA Stl Ql MELOIDE non-probe : Not DetectedG lamblia DNA Stl Ql MELODIE non-probe : Not DetectedAdV 40,41 DNA Stl Ql MELODIE non-probe : Not DetectedAstro typ 1to8 RNA Stl Ql MELODIE non-probe : Not DetectedNorovirus GI, II RNA Stl Ql MELODIE non-probe : Not DetectedRotavirus A RNA Stl Ql MELODIE non-probe : Not DetectedSapo I,II,IV,V RNA Stl Ql MELODIE non-probe : Not Detected Name Value Range Interpretation Code Description Data Neva rce(s) Supporting Document(s) ID Date Data Source [id number] 10/10/2019 09:31:21 PM [facility] Name Value Range Interpretation Code Description Data Neva rce(s) Supporting Document(s) Osmolality of Urine 329 mosm/kg 300-1000 [facility] ID Date Data Source [id number] 10/10/2019 03:59:06 PM [facility] Name Value Range Interpretation Code Description Data Neva rce(s) Supporting Document(s) [facility] [id number] lbm [file] [id number]+DTaR0mTH8agb/Livier+OKtoEXYKYj4coKwpfS6E7GFtgVGWxQR1mg3gvkI gZMwaHzv+BkIYXbG5C2GEeIeJlZMAFR7fHpZLfb9yB BK0zuTTMEIOE8qeqlaOaLKE0J2VcUTRknqIn1OKFrhJB6ilOZkFaCNgzvpEWnsAQNbAq8bfw9PV729yE aNGu5AvXEB6It68xKOl7Kt4ONUoMcztMGtEuANllOJcF2CrZUkjb509svpMjoEjoDmLdL1i8joztovnB iGUeG0OBx7aZMaArkX4VOcUtNI3l9IWORmrstpQAH/ uBmwcWORPNYN8AOIYX2pzfWYDMhaZbCoqWsTMilB4FKaDfsVai3RSIFfrxwoZSO/wOjnaOSEZJEK0BGA NF4dsrZFMGpxOxIufUtCGpxF4HDyDahQNL+DDqV5kWSqqJZNnSYi3OEzEkdP5FJuSzlU0oiSIesamyYI ASynmqTSaCxCB1bClkSUfkJICuxlusqh2aPE19qUVe F1oFKp6ZbyvFABg02MQKio1rLMh2OnlhTcTBS8PRzgMJZQCmvNYlHaMZncqg4ylaznMgJB9ggyiCBUTK RsuL2NR6CH971D56Ol7fHIjATSIrkeSaVeB8a+sc4HcS0IiwiLoCQw2wUlzrcNf5KGZjjjoED6zekMmw BubUqXcWMgvogpzu7jGlJCzP2WYkB6SMiCECgirGNF 6rUsj1AWCksdsAN6dahHknHtnPhQxQHxmwnapa3dEjQDxA6ZAaZ3WAxRXVprfPMoh66dfBKnihriWgts [facility]/oyItXPZUi1GYRBwgYzc2LDZNaTF0VLslXBJVA5XMfRgI/eiglRaHnUEFLeTz7ORa5UJ59nvDd4L [file] ICAgICAgICAgICAgICAgICAgICAgICAgICAgICAgICAgICAgICAgICAgICAgICAgICAgICAgICAgICAg CTYoZMByFCJgIMUaSHYaOKKpGMRaBDEfYDQcLZUgAKBaRDQvFF8KHEFjTCMhFABlNTKyUMBeNZKjTCGr ICAgICAgICAgICAgICAgICAgICAgICAgICAgICAgIC IyOUUqQGXfYJVaRDTpNKEcWDFeBDOlIXPhHYGxTHEqCIKjFDGdUURaAWKeWPVuBQ7TVXRrALYjGUHlXK AgICAgICAgICAgICAgICAgICAgICAgICAgICAgICAgICAgICAgICAgICAgICAgICAgICAgICAgICAgIC JbNXOyBEAhOWBjKLWkMQZkVJAgBOQaGRVuGIMrEU3P ICAgICAgICAgICAgICAgICAgICAgICAgICAgICAgICAgICAgICAgICAgICAgICAgICAgICAgICAgICAg JYEaOINvWAYoKVWrNBQfAPHtFPRhPLTmIPQoFUZgDGUmHXFfFBGiQL7QNZEaGXHpNBPfOGQdPLRfDZDp ICAgICAgICAgICAgICAgICAgICAgICAgICAgICAgIC NtKBCtSKCvTRWgYQDiWHUoOMUqVRRbGZPtRUJjYUGfUMQeKULyXCTfHUOwEDIeKZCzOD2DLGIdQBAfHA AgICAgICAgICAgICAgICAgICAgICAgICAgICAgICAgICAgICAgICAgICAgICAgICAgICAgICAgICAgIC AgICAgICAgICAgICAgICAgICAgICAgICAgICAgICAg SC9CYATbCATkVZNyJKNoEHHrMDGxAPMaQVJhINZyIPUdTBAwKHMuTBTuDCChMHTyRREqJMQkZIAfGZDh YBOiDRJzHFTbCUWvUDDzFKAaBMQiEORoNAMvCHAlRPJsKLNiJRFuJNQjTQ2JZZDcBTXhJPGkMVDcVBVz ICAgICAgICAgICAgICAgICAgICAgICAgICAgICAgIC LrEKIhTTXuRUBlBMIrYMYqJJWsWTIcGJGuWDPvINCiBFVfZGEoHSAcYFLeWFRxMISwSKOgBG9EFYBgPC AgICAgICAgICAgICAgICAgICAgICAgICAgICAgICAgICAgICAgICAgICAgICAgICAgICAgICAgICAgIC AgICAgICAgICAgICAgICAgICAgICAgICAgICAgICAg OCVvKD3IBDEmIHUgKSXjVOEwPPOqXKNtVPAqSPVvDQWnUVFzZNLxHCCaKVWbLGFyJCNbDGGoCYDiOIGa BRZsCIAhJWGbOVPpBVUcIKLwGZKhSZAaWCEkGDJmSECnPPKgGDToQSGwPJXqHQ4RGE31jDVhg8D6PTEh ST6lzhl/Qb2ABVfodsEhwTIoQH7UFhHoKY7roc4LLc YlEX0yyf5PUScSRbXwG8K9aFIxLDTlQRVHQrIjA59dBEiwJp34SOifHGOyHhFqXMz7Wh7MGmKeZ6chHW McMhM9MHJlJoL2SSCfBpF9XCGoMqWrAGLfUPNqZUGgZYFLNFM5QVYnBuVaSnYoGTFoNQkwGCFMKJ1CIy EnM2OnrZ08CNqCKr9+RIqxthMvVhtYTlTdZMAmb4On XQt6MH0HDWFeAopav6KpVoOuJRWCAXkdWJ8FLYM7PUP4MDUbFz2PDVIbO951xqUmKN2WQw1THyHmZQ6i za5BHcBhVSPmWvuAXpo2GNbnWC3JbPBbVVgFm04bfDg7qpBdoLNOlKUwz1NzlfZgDhHuUXKwLVOywwfb LJ5FMXJ5EHTpDkUpSeOyEGczOQR2LyFeXL9nSEfgAH 7KGXY4KCiuCTShZSCjH6yODzOiRCYiOuVsmRyzIO6SGpKnC9AilrPajSIwYrFjMHBAVq2+DQplbmRvYm bEGvY9TVHrk3AkGTl8RY9MBNLtDPloHM1AUMBneX4cIBqdDV2HAjIaFDObQKZJQhKpJ08cwBCqCBu2I3 VtYmVkZGVkRmlsZXMgPDwvTmFtZXMgWyBdDQogID4+ ID4+JHecMJ5EICvmqiQbZVZdXu4NQLJzGKSxAU6bZTCiBSLbK0P6fQvoUIHFDrFjB8emmdmyPO6pPMLf J208xWkibkUxYEPlOKOtSg6TRJHgPBA6EHLouAZfDtIiPYHQAHbnOI6DaDKoSNK2tB7dPFwlQJNbVVZl M7sPShJdoXzsOT38yMrwxqTreFJgKTh+Ra1QAR8tz3 JrNKf0qpRuWFufNQS3XSnoPEXmEYUbKIHrPZB2WOJ4NBPOXoKrAUCbIQPpJIwhTMIdTARdex5SOBGsAK P8ViZ5GGHiAMHsJLVkGOfsPERqQRR1KLa9AIIxBOXmWL0HBxKhYHKqXRXmOPdsZSUpWZYbcn2VGLEpEH TmIqa9JDDxGHJyMIRoZPlzCCWcDEY0PTP9XKSmQCSa LD3MUzCzVFJeQCihKWNqKUFpEYKvsi6IRWGdMRMvRPE9WrQtKAPiWYEaSOitUIGhMCIfJCp4IKOlIVBj OL8WZtStOTWhROYoLmzoINIdJIKjfo1PJZUpGTHiUAg1AWDiDUBgWJIhBLxyOJNsQPF5CIKhYRAbSFTn FI5FOsPvRAWhRSz7OFIhXAWmILFmgr3WBQBrZGJvQD c0OlYdCZNsEDXpFXagSVPrQZIdOXItEZXxZCFpKG4KHrPwDMNkNqU1PEXvJFOcMIOcgx0FAZOkWWLxFb C8NGCbIAKlDFHpHNurBFVhBNQ8ArsfIDWhUWQmRP8RPuWpWITgEmmyAzUfETEnWKZlnj0VRDCqCYPzDL T7JuVvUUYuSGIrQIrtLVFhDKW8XsW3CPMeRHHgZY1A MnAeDRRvEyc0BzMvZBOwZPJrrl3DDIXoWUQuLEXqOiMfBFIzWIYqRMhhXJJbATXkHCX5SSYuUOPrSX6E ZuJxZCCwMmW8YrtaSVXrOCTyvp9YWKYbSEPyBGg0UaHhUHSiXCEmFOffCCNnYAFpFfAoQTVnEXEpWU9P IsDtKORkZKV1LDhdEHNyUWUuvf4GFYZfVJU5Hqy2NR UpGQRfTMUqIJvkJUXwOQKuIKE1HAJuTWExKG5TAqFjNHYyIYQwNIKoRIRuXTOeov9AMVVqWJU3UaT5LC PqUQEeRHMdNMmgGJOjCMV0QYL0FCVfRXOcUT7POdXqPXCyAKNbQGOhPSQzORUtdc8NXUPrWRS5QSY2YV BoFWMbXGDjTRz1gjTqkNQmBRm8ZM1UJ2XekuWyQiIW Jj6Ht692LOV6BPXsPi9TE6frGj4zTTZqRUPJCs0NHIl8K2UnXOK1SNNpYOLdVZBvQqEyIHr1CKPlCab7 MTIyNWU+AWfrWfMvZNk0OROpK5Y7DLIoE9KkAYt6WzHtNzVtKuX6BK3bEIALAt5+DQpzdGFydHhyZWYN SeK4HhA8CKhjBRFVTx1C ID Date Data Source [id number] 10/10/2019 07:17:53 AM [facility] Name Value Range Interpretation Code Description Data Neva rce(s) Supporting Document(s) Sodium [Moles/volume] in Urine 105 mmol/L [facility] ID Date Data Source [id number] 10/10/2019 06:45:42 AM [facility] Name Value Range Interpretation Code Description Data Neva rce(s) Supporting Document(s) Thyrotropin [Units/volume] in Serum or Plasma 5.720 u[IU]/mL 0.270-4. 200 H [facility] ID Date Data Source [id number] 10/10/2019 05:46:01 PM [facility] Value Range Interpretation Code Description Data Neva rce(s) Supporting Document(s) Cortisol [Mass/volume] in Serum or Plasma 16.5 ug/dL [facility] Ref range for 6-10 am samples: 6.0-18.4 ug/dLRef range for 4-8 pm samples: 2.7- 10.5 ug/dLRef range not established for other times. ID Date Data Source [id number] 10/10/2019 03:46:35 AM [facility] Value Range Interpretation Code Description Data Neva rce(s) Supporting Document(s) Leukocytes [#/volume] in Blood by Automated count 6.8 10*3/uL 4-10 [facility] [facility] Erythrocytes [#/volume] in Blood by Automated count 2.62 10*6/uL 4.6- 6.1 L [facility] Hemoglobin [Mass/volume] in Blood 8.5 g/dL 13.5-18 L [facility] Hematocrit [Volume Fraction] of Blood by Automated count 24.2 % 4 1-53 L [facility] Erythrocyte mean corpuscular volume [Entitic volume] by Auto mated count 92.4 fL 80-96 [facility] Erythrocyte mean corpuscular hemoglobin [Entitic mass] by Automated count 32.5 pg 27-33 [facility] Erythrocyte mean corpuscular hemoglobin concentration [Mass/volume] by Automated count 35.2 g/dL [facility].0-[facility].0 [facility] width [Ratio] by Automated count 15.0 % 11.5-14.5 H [facility] Platelets [#/volume] in Blood by Automated count 228 10*3/uL 150-400 [facility] Differential cell count method - Blood [facility] Neutrophils/100 leukocytes in Blood by Automated count 73 % [facility] Lymphocytes/100 leukocytes in Blood by Automated count 8 % [facility] Monocytes/100 leukocytes in Blood by Automated count 12 % [facility] Eosinophils/100 leukocytes in Blood by Automated count 6 % [facility] Basophils/100 leukocytes in Blood by Automated count 1 % [facility] Neutrophils [#/volume] in Blood by Automated count 4.99 10*3/uL 1.8-7 .0 [facility] Lymphocytes [#/volume] in Blood by Automated count 0.57 10*3/uL 1.2-4 .0 L [facility] Monocytes [#/volume] in Blood by Automated count 0.78 10*3/uL 0-0.8 [facility] Eosinophils [#/volume] in Blood by Automated count 0.41 10*3/uL 0-0.5 [facility] Basophils [#/volume] in Blood by Automated count 0.07 10*3/uL 0-0.2 [facility] Nucleated erythrocytes/100 leukocytes [Ratio] in Blood by Automated count 0 /100{WBCs} 0-0 [facility] ID Date Data Source [id number] 10/10/2019 04:03:10 AM [facility] Name Value Range Interpretation Code Description Data Neva rce(s) Supporting Document(s) Bicarbonate [Moles/volume] in Serum 23 mmol/L 22-29 [facility] Chloride [Moles/volume] in Serum or Plasma 93 mmol/L 98-107 L [facility] Creatinine [Mass/volume] in Serum or Plasma 0.63 mg/dL 0.70-1.20 L [facility] Glucose [Mass/volume] in Serum or Plasma 120 mg/dL 70-140 [facility] Potassium [Moles/volume] in Serum or Plasma 3.9 mmol/L 3.4-5.1 [facility] Sodium [Moles/volume] in Serum or Plasma 125 mmol/L 136-145 L [facility] Urea nitrogen [Mass/volume] in Serum or Plasma 9 mg/dL 8-23 [facility] Anion gap 3 in Serum or Plasma 9 mmol/L 8-15 [facility] Osmolality of Serum or Plasma by calculation 260 mosm/kg 275-300 L [facility] Creatinine/Urea nitrogen [Mass Ratio] in Serum or Plasma 14 [facility] Calcium [Mass/volume] in Serum or Plasma 8.3 mg/dL 8.8-10.2 L [facility] Glomerular filtration rate/1.73 sq M pre dicted among non-blacks [Volume Rate/Area] in Serum or Plasma by Creatinine-based formula (MDRD) >6 0 [facility] Glomerular filtration rate/1.73 sq M pre dicted among blacks [Volume Rate/Area] in Serum or Plasma by Creatinine-based formula (MDRD) >60 [facility] ID Date Data Source [id number] 10/09/2019 12:28:33 PM [facility] CT HEAD WITHOUT CONTRAST [id number] RESU LTInterpreted by:SHELBI WilhelmIndication: POST TPA 24 HR SCANExam: CT HEAD WITHOUT CONTRAST [id number] Technique: Unenhanced 5.0 mm and thin axial sections were obtained. Automated dose lowering techniques and/or adjustment according to patient size were utilized for this exam.Findings: There is diffuse volume loss and small vessel ischemic changes are present in periventricular white matter. However no acute infarct or hemorrhage identified. 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 Visualized paranasal sinuses are clear.Impression: Diffuse volume loss and small vessel ischemic changes. No acute infarct or hemorrhage is noted. No significant change since previous CT study dated 10/08/2019.This document has been electronically signed by SHELBI Wilhelm on 10/09/2019 12:26 PM Name Value Range Interpretation Code Description Data [facility](s) Supporting Document(s) ID Date Data Source [id number] 10/09/2019 08:13:31 AM [facility] Service Cmnt XXX-Imp : Microorganism XXX Cult : NEGATIVE for fecal occult blood by immunochromatography. This test is not designed to detect bleeding from the upper GI tract. To detect bleeding from the upper tract, order Fecal Occult Blood, Upper GI (Hemoccult-SENSA). Name Value Range Interpretation Code Description Data Neva rce(s) Supporting Document(s) ID Date Data Source [id number] 10/09/2019 05:30:30 AM [facility] Name Value Range Interpretation Code Description Data [facility](s) Supporting Document(s) Hemoglobin A1c/Hemoglobin.total in Blood by HPLC 5.1 % 4.0-6.0 [facility] (NOTE)<5.7% Average risk of diabetes (ADA)5.7-6.4% Increased risk of diabetes(ADA)>/= 6.5% Diagnostic for diabetes(ADA) Glucose mean value [Mass/volume] in Blood Estimated fr om glycated hemoglobin 100 mg/dL <126 [facility] ID Date Data Source [id number] 10/09/2019 05:00:33 AM [facility] Name Value Range Interpretation Code Description Data Neva rce(s) Supporting Document(s) Leukocytes [#/volume] in Blood by Automated count 6.6 10*3/uL 4-10 [facility] Erythrocytes [#/volume] in Blood by Automated count 2.48 10*6/uL 4.6- 6.1 L [facility] Hemoglobin [Mass/volume] in Blood 8.1 g/dL 13.5-18 L [facility] Hematocrit [Volume Fraction] of Blood by Automated count 22.7 % 4 1-53 L [facility] Erythrocyte mean corpuscular volume [Entitic volume] by Auto mated count 91.8 fL 80-96 [facility] Erythrocyte mean corpuscular hemoglobin [Entitic mass] by Automated count 32.8 pg 27-33 [facility] Erythrocyte mean corpuscular hemoglobin concentration [Mass/volume] by Automated count 35.7 g/dL 32.0-36.0 [facility] E[facility]th[facility] distribution width [Ratio] by Automated count 15.4 % 11.5-14.5 H [facility] Platelets [#/volume] in Blood by Automated count 213 10*3/uL 150-400 [facility] Differential cell count method - Blood [facility] Neutrophils/100 leukocytes in Blood by Automated count 78 % [facility] Lymphocytes/100 leukocytes in Blood by Automated count 7 % [facility] Monocytes/100 leukocytes in Blood by Automated count 11 % [facility] Eosinophils/100 leukocytes in Blood by Automated count 3 % [facility] Basophils/100 leukocytes in Blood by Automated count 1 % [facility] Neutrophils [#/volume] in Blood by Automated count 5.24 10*3/uL 1.8-7 .0 [facility] Lymphocytes [#/volume] in Blood by Automated count 0.46 10*3/uL 1.2-4 .0 L [facility] Monocytes [#/volume] in Blood by Automated count 0.71 10*3/uL 0-0.8 [facility] Eosinophils [#/volume] in Blood by Automated count 0.20 10*3/uL 0-0.5 [facility] Basophils [#/volume] in Blood by Automated count 0.05 10*3/uL 0-0.2 [facility] Nucleated erythrocytes/100 leukocytes [Ratio] in Blood by Automated count 0 /100{WBCs} 0-0 [facility] ID Date Data Source [id number] 10/09/2019 05:26:09 AM [facility] Name Value Range Interpretation Code Description Data Neva rce(s) Supporting Document(s) Cholesterol [Mass/volume] in Serum or Plasma 107 mg/dL <200 [facility] Triglyceride [Mass/volume] in Serum or Plasma 59 mg/dL <150 [facility] Cholesterol in HDL [Mass/volume] in Serum or Plasma 50 mg/dL >40 [facility] Cholesterol in LDL [Mass/volume] in Serum or Plasma by calcu lation 45 mg/dL <100 [facility] Cholesterol in VLDL [Mass/volume] in Serum or Plasma by calc ulation 12 mg/dl 16-42 L [facility] Cholesterol non HDL [Mass/volume] in Serum or Plasma 58 mg/dL <130 [facility] ID Date Data Source [id number] 10/09/2019 05:26:09 AM [facility] Name Value Range Interpretation Code Description Data Neva rce(s) Supporting Document(s) Bicarbonate [Moles/volume] in Serum 23 mmol/L 22-29 [facility] Chloride [Moles/volume] in Serum or Plasma 95 mmol/L 98-107 L [facility] Creatinine [Mass/volume] in Serum or Plasma 0.63 mg/dL 0.70-1.20 L [facility] Glucose [Mass/volume] in Serum or Plasma 124 mg/dL 70-140 [facility] Potassium [Moles/volume] in Serum or Plasma 3.7 mmol/L 3.4-5.1 [facility] Sodium [Moles/volume] in Serum or Plasma 127 mmol/L 136-145 L [facility] Urea nitrogen [Mass/volume] in Serum or Plasma 14 mg/dL 8- [facility] Anion gap 3 in Serum or Plasma 9 mmol/L 8-15 [facility] Osmolality of Serum or Plasma by calculation 266 mosm/kg 275-300 L [facility] Creatinine/Urea nitrogen [Mass Ratio] in Serum or Plasma 22 [facility] Calcium [Mass/volume] in Serum or Plasma 7.9 mg/dL 8.8-10.2 L [facility] Glomerular filtration rate/1.73 sq M pre dicted among non-blacks [Volume Rate/Area] in Serum or Plasma by Creatinine-based formula (MDRD) >6 0 [facility] Glomerular filtration rate/1.73 sq M pre dicted among blacks [Volume Rate/Area] in Serum or Plasma by Creatinine-based formula (MDRD) >60 [facility] ID Date Data Source [id number] 10/09/2019 05:26:09 AM [facility] Name Value Range Interpretation Code Description Data Neva rce(s) Supporting Document(s) Thyrotropin [Units/volume] in Serum or Plasma 4.080 u[IU]/mL 0.270-4. 200 [facility] ID Date Data Source [id number] 10/08/2019 03:11:16 PM [facility] Name Value Range Interpretation Code Description Data Neva rce(s) Supporting Document(s) History and Physical [facility] [id number]/WQVfvDWLfu7AiYZhrQSs0DHkzLXGwC2UvVTU7sD5dCIG6RYdCUvUdXMtjMvJx m [file] torpedo specialist+EPfE0/WHmh4wDaGLc6fF8A1Hcb2xdn3ENCyzqv+W7H+re05jlxVlDphBnySCvEXk3O7PzzW5N1kP5 [file] f0QR+Сергей+9T3lPey1jP+zNfeQb+ki/9oapWLYiSUkdQiZF3Uj1qIiyIRtVz0/wbX4dpz5qy37f18hzOL [file] BaPrXwWqLhROT8SJAfTtR9ZIxsOVwpIqHqBQ4HJc6MWoI7LTD6fJXdEk1PMge5HSrNFgTrIS1QALe= ID Date Data Source [id number] 10/08/2019 03:19:40 PM [facility] Name Value Range Interpretation Code Description Data Neva e(s) Supporting Document(s) Leukocytes [#/volume] in Blood by Automated count 9.9 10*3/uL 4-10 [facility] Erythrocytes [#/volume] in Blood by Automated count 2.58 10*6/uL 4.6- 6.1 L [facility] Hemoglobin [Mass/volume] in Blood 8.3 g/dL 13.5-18 L [facility] Hematocrit [Volume Fraction] of Blood by Automated count 23.7 % 4 1-53 L [facility] Erythrocyte mean corpuscular volume [Entitic volume] by Auto mated count 91.8 fL 80-96 [facility] Erythrocyte mean corpuscular hemoglobin [Entitic mass] by Automated count 32.3 pg 27-33 [facility] Erythrocyte mean corpuscular hemoglobin concentration [Mass/volume] by Automated count 35.2 g/dL 32.0-36.0 [facility] Erythrocyte distribution width [Ratio] by Automated count 15.4 % 11.5-14.5 H [facility] Platelets [#/volume] in Blood by Automated count 253 10*3/uL 150-400 [facility] ID Date Data Source [id number] 10/08/2019 12:18:31 PM [facility] MR BRAIN WITHOUT CONTRAST [id number] RES ULTInterpreted by:SHELBI WilhelmEXAMINATION: MR BRAIN WITHOUT CONTRAST [id number] INDICATION: expressive aphasia and left arm numbness.TECHNIQUE: Multiplanar and multisequence MR images of the brain were obtained IV CONTRAST: None.COMPARISON: 10/18/2018 FINDINGS: Some movement artifacts. Small vessel ischemic changes and diffuse volume loss is present. No acute infarct or hemorrhage. No definite evidence of metastasis. Imaged portions of the paranasal sinuses and mastoid air cells are clear. There are no intraocular or extraocular masses shown. IMPRESSION: No acute intracranial hemorrhage, evidence of acute infarction, or other acute intracranial disease process. Some movement artifacts about the no large metastasis identified. No significant change since previous MR study.This document has been electronically signed by SHELBI Wilhelm on 10/08/2019 12:16 PM Name Value Range Interpretation Code Description Data Neva rce(s) Supporting Document(s) ID Date Data Source [id number] 10/08/2019 11:09:03 AM [facility] Name Value Range Interpretation Code Description Data Neva rce(s) Supporting Document(s) EKG [facility] [id number]CpTFCcKIINMX6EdLAs jb2 [file] [id number] ID Date Data Source [id number] 10/13/2019 10:39:32 AM [facility] Service Cmnt XXX-Imp : L BICEPMicroorgan ism XXX Cult : No growth (qualifier value) Name Value Range Interpretation Code Description Data Neva rce(s) Supporting Document(s) ID Date Data Source [id number] 10/13/2019 10:39:32 AM [facility] Service Cmnt XXX-Imp : RT FOREARMMicroor ganism XXX Cult : No growth (qualifier value) Name Value Range Interpretation Code Description Data Neva rce(s) Supporting Document(s) ID Date Data Source [id number] 10/08/2019 11:11:27 AM [facility] Service Cmnt XXX-Imp : Microorganism XXX Cult : Polymerase chain reaction is NEGATIVE for Influenza A H1, H3 and 2009 H1 viruses, Influenza B virus, Respiratory syncytial virus, Human metapneumovirus, Parainfluenza virus 1, 2, 3 and 4, Adenovirus, Rhinovirus/Enterovirus, Coronavirus HKU1, NL63, OC43, and 229E, Bordetella pertussis, Mycoplasma pneumoniae and Chlamydia pneumoniae. Name Value Range Interpretation Code Description Data Neva rce(s) Supporting Document(s) ID Date Data Source [id number] 10/08/2019 08:41:36 AM [facility] CT ANGIOGRAPHY HEAD [id number] RESULTInt erpreted by:Rachel Wilhelm MDINDICATION: Aphasia, and facial droop. Evaluate for stroke.TECHNIQUE: Noncontrast axial head CT was acquired. A contrast-enhanced multidetector helical CTA head and neck was performed after the administration of Omnipaque IV contrast. Pertaining to the extracranial internal carotid arteries (ICAs), the degree of stenosis was accessed using NASCET Criteria. Automated dose lowering techniques and/or adjustment according to patient size were utilized for this exam.COMPARISON: MR brain with and without contrast dated 10/18/2018.FINDINGS:BRAIN:No intraparenchymal hemorrhage, midline shift or mass effect. Kendrick-white matter differentiation is well preserved. No evidence of acute infarct. Moderate prominence of the ventricles and sulci consistent with cortical parenchymal volume loss. Moderate periventricular and subcortical nonspecific white matter hypodensities, most commonly attributed to small vessel ischemia.No extra-axial collections.CTA NECK: There is normal three vessel anatomy of the aortic arch. 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 The extracranial segments of the right vertebral artery are patent.The left vertebral artery origin is patent. The extracranial segments of the left vertebral artery are patent.Redemonstration of right upper lobe 1.2 cm spiculated nodule abutting the pleura. No cervical lymphadenopathy or inflammatory changes of the neck. Degenerative changes of the cervical spine. The thyroid gland is unremarkable. CTA HEAD: There are arthrosclerotic calcification of the intracranial segments of the segments of the ICAs, however are patent.The A1 and A2 segments of the anterior cerebral arteries are patent. The anterior communicating artery is patent.The M1 and M2 segments of the right middle cerebral artery are patent.The M1 and M2 segments of the left middle cerebral artery are patent.The intracranial right vertebral artery is patent. The intracranial left vertebral artery is patent. The basilar artery is patent.The superior cerebellar arteries are patent. There are severe tandem narrowing of the right ATTENDANCE CLERK P2 segment. There is minimal distal reconstitution.Severe narrowing of the left ATTENDANCE CLERK P2 segment with the distal reconstitution.The major dural venous sinuses are patent.IMPRESSION:1. 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 2. Atherosclerotic calcification of bilateral common carotid arteries, however without occlusion or significant stenosis.3. Moderate generalized cerebral volume loss and chronic small vessel ischemic changes.4. Redemonstration of right anterior upper lobe 1.2 cm spiculated nodule abutting the pleura. Please correlate with recent chest CT dated 09/12/2019.Findings were discussed with Dr. Wilkins by Dr. Thomas Mauricio via phone on 10/08/2019 1:30 AM. This document has been electronically signed by SHELBI Wilhelm on 10/08/2019 8:39 AM Name Value Range Interpretation Code Description Data Neva rce(s) Supporting Document(s) ID Date Data Source [id number] 10/08/2019 08:41:36 AM [facility] CT ANGIOGRAPHY NECK [id number] RESULTInt erpreted by:Rachel Wilhelm MDINDICATION: Aphasia, and facial droop. Evaluate for stroke.TECHNIQUE: Noncontrast axial head CT was acquired. A contrast-enhanced multidetector helical CTA head and neck was performed after the administration of Omnipaque IV contrast. Pertaining to the extracranial internal carotid arteries (ICAs), the degree of stenosis was accessed using NASCET Criteria. Automated dose lowering techniques and/or adjustment according to patient size were utilized for this exam.COMPARISON: MR brain with and without contrast dated 10/18/2018.FINDINGS:BRAIN:No intraparenchymal hemorrhage, midline shift or mass effect. Kendrick-white matter differentiation is well preserved. No evidence of acute infarct. Moderate prominence of the ventricles and sulci consistent with cortical parenchymal volume loss. Moderate periventricular and subcortical nonspecific white matter hypodensities, most commonly attributed to small vessel ischemia.No extra-axial collections.CTA NECK: There is normal three vessel anatomy of the aortic arch. 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 The extracranial segments of the right vertebral artery are patent.The left vertebral artery origin is patent. The extracranial segments of the left vertebral artery are patent.Redemonstration of right upper lobe 1.2 cm spiculated nodule abutting the pleura. No cervical lymphadenopathy or inflammatory changes of the neck. Degenerative changes of the cervical spine. The thyroid gland is unremarkable. CTA HEAD: There are arthrosclerotic calcification of the intracranial segments of the segments of the ICAs, however are patent.The A1 and A2 segments of the anterior cerebral arteries are patent. The anterior communicating artery is patent.The M1 and M2 segments of the right middle cerebral artery are patent.The M1 and M2 segments of the left middle cerebral artery are patent.The intracranial right vertebral artery is patent. The intracranial left vertebral artery is patent. The basilar artery is patent.The superior cerebellar arteries are patent. There are severe tandem narrowing of the right ATTENDANCE CLERK P2 segment. There is minimal distal reconstitution.Severe narrowing of the left ATTENDANCE CLERK P2 segment with the distal reconstitution.The major dural venous sinuses are patent.IMPRESSION:1. 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 2. Atherosclerotic calcification of bilateral common carotid arteries, however without occlusion or significant stenosis.3. Moderate generalized cerebral volume loss and chronic small vessel ischemic changes.4. Redemonstration of right anterior upper lobe 1.2 cm spiculated nodule abutting the pleura. Please correlate with recent chest CT dated 09/12/2019.Findings were discussed with Dr. Wilkins by Dr. Thomas Mauricio via phone on 10/08/2019 1:30 AM. This document has been electronically signed by SHELBI Wilhelm on 10/08/2019 8:39 AM Name Value Range Interpretation Code Description Data Neva rce(s) Supporting Document(s) ID Date Data Source [id number] 10/08/2019 07:04:17 AM [facility] Name Value Range Interpretation Code Description Data [facility] rce(s) Supporting Document(s) Leukocytes [#/volume] in Blood by Automated count 12.0 10*3/uL 4-10 H [facility] Erythrocytes [#/volume] in Blood by Automated count 2.92 10*6/uL 4.6- 6.1 L [facility] Hemoglobin [Mass/volume] in Blood 9.4 g/dL 13.5-18 L [facility] Hematocrit [Volume Fraction] of Blood by Automated count 26.8 % 4 1-53 L [facility] Erythrocyte mean corpuscular volume [Entitic volume] by Auto mated count 91.6 fL 80-96 [facility] Erythrocyte mean corpuscular hemoglobin [Entitic mass] by Automated count 32.0 pg 27-33 [facility] Erythrocyte mean corpuscular hemoglobin concentration [Mass/volume] by Automated count 34.9 g/dL 32.0-36.0 [facility] E[facility] distribution width [Ratio] by Automated count 15.4 % 11.5-14.5 H [facility] Platelets [#/volume] in Blood by Automated count 269 10*3/uL 150-400 [facility] Differential cell count method - Blood [facility] Neutrophils/100 leukocytes in Blood by Automated count 88 % [facility] Lymphocytes/100 leukocytes in Blood by Automated count 4 % [facility] Monocytes/100 leukocytes in Blood by Automated count 8 % [facility] Eosinophils/100 leukocytes in Blood by Automated count 0 % [facility] Basophils/100 leukocytes in Blood by Automated count 0 % [facility] Neutrophils [#/volume] in Blood by Automated count 10.62 10*3/uL 1.8- 7.0 H [facility] [facility] Lymphocytes [#/volume] in Blood by Automated count 0.42 10*3/uL 1.2-4 .0 L [facility] Monocytes [#/volume] in Blood by Automated count 0.95 10*3/uL 0-0.8 H [facility] Eosinophils [#/volume] in Blood by Automated count 0.01 10*3/uL 0-0.5 [facility] Basophils [#/volume] in Blood by Automated count 0.04 10*3/uL 0-0.2 [facility] Nucleated erythrocytes/100 leukocytes [Ratio] in Blood by Automated count 0 /100{WBCs} 0-0 [facility] ID Date Data Source [id number] 10/08/2019 07:29:49 AM [facility] Name Value Range Interpretation Code Description Data Neva rce(s) Supporting Document(s) Cholesterol [Mass/volume] in Serum or Plasma 126 mg/dL <200 [facility] Triglyceride [Mass/volume] in Serum or Plasma 62 mg/dL <150 [facility] Cholesterol in HDL [Mass/volume] in Serum or Plasma 61 mg/dL >40 [facility] Cholesterol in LDL [Mass/volume] in Serum or Plasma by calcu lation 53 mg/dL <100 [facility] Cholesterol in VLDL [Mass/volume] in Serum or Plasma by calc ulation 12 mg/dl 16-42 L [facility] Cholesterol non HDL [Mass/volume] in Serum or Plasma 65 mg/dL <130 [facility] ID Date Data Source [id number] 10/08/2019 07:29:49 AM [facility] Name Value Range Interpretation Code Description Data Neva rce(s) Supporting Document(s) Albumin [Mass/volume] in Serum or Plasma by Bromocresol green (BCG) dye binding method 3.7 g/dL 3.5-5.2 [facility] Bilirubin.total [Mass/volume] in Serum or Plasma 0.5 mg/dL <1.2 [facility] Calcium [Mass/volume] in Serum or Plasma 8.3 mg/dL 8.8-10.2 L [facility] Chloride [Moles/volume] in Serum or Plasma 93 mmol/L 98-107 L [facility] Creatinine [Mass/volume] in Serum or Plasma 0.75 mg/dL 0.70-1.20 [facility] Glucose [Mass/volume] in Serum or Plasma 131 mg/dL 70-140 [facility] Alkaline phosphatase [Enzymatic activity/volume] in Serum or Plasma 83 U/L 40-129 [facility] Potassium [Moles/volume] in Serum or Plasma 3.6 mmol/L 3.4-5.1 [facility] Protein [Mass/volume] in Serum or Plasma 5.9 g/dL 6.4-8.3 L [facility] Sodium [Moles/volume] in Serum or Plasma 130 mmol/L 136-145 L [facility] Aspartate aminotransferase [Enzymatic activity/volume] in Serum or Plasma 16 U/L <40 [facility] Urea nitrogen [Mass/volume] in Serum or Plasma 19 mg/dL 8-23 [facility] Osmolality of Serum or Plasma by calculation 274 mosm/kg 275-300 L [facility] Creatinine/Urea nitrogen [Mass Ratio] in Serum or Plasma 25 [facility] Bicarbonate [Moles/volume] in Serum 20 mmol/L 22-29 L [facility] Alanine aminotransferase [Enzymatic activity/volume] in Seru m or Plasma 10 U/L <41 [facility] Anion gap 3 in Serum or Plasma 17 mmol/L 8-15 H [facility] Albumin/Globulin [Mass Ratio] in Serum or Plasma 1.7 [facility] Glomerular filtration rate/1.73 sq M pre dicted among non-blacks [Volume Rate/Area] in Serum or Plasma by Creatinine-based formula (MDRD) >6 0 [facility] Glomerular filtration rate/1.73 sq M pre dicted among blacks [Volume Rate/Area] in Serum or Plasma by Creatinine-based formula (MDRD) >60 [facility] ID Date Data Source [id number] 10/08/2019 07:29:49 AM [facility] Name Value Range Interpretation Code Description Data Neva rce(s) Supporting Document(s) Thyrotropin [Units/volume] in Serum or Plasma 4.590 u[IU]/mL 0.270-4. 200 H [facility] ID Date Data Source [id number] 10/08/2019 11:40:25 AM [facility] Name Value Range Interpretation Code Description Data Neva rce(s) Supporting Document(s) Thyroxine (T4) free [Mass/volume] in Serum or Plasma 1.35 ng/dL 0.93- 1.70 [facility] ID Date Data Source [id number] 10/08/2019 07:51:09 AM [facility] Name Value Range Interpretation Code Description Data Neva rce(s) Supporting Document(s) Hemoglobin A1c/Hemoglobin.total in Blood by HPLC 5.2 % 4.0-6.0 [facility] (NOTE)<5.7% Average risk of diabetes (ADA)5.7-6.4% Increased risk of diabetes(ADA)>/= 6.5% Diagnostic for diabetes(ADA) Glucose mean value [Mass/volume] in Blood Estimated fr om glycated hemoglobin 103 mg/dL <126 [facility] ID Date Data Source [id number] 10/08/2019 01:41:01 AM [facility] XR CHEST FRONTAL ONLY [id number] RESULTI nterpreted by:Yamila Kelly, [facility] INFORMATION: Exam: XR Chest, 1 View Exam date and time: 10/08/2019 1:19 AM Age: 84 years old Clinical indication: Other: Stroke TECHNIQUE: Imaging protocol: XR of the chest Views: 1 view. COMPARISON: DX Xray Chest 2 view PA/LAT 08/13/2018 2:42 PM FINDINGS: Tubes, catheters and devices: A left IJ approach MediPort terminating in the cavoatrial junction. Lungs: Increased interstitial markings bilaterally with pleural based nodular density in the lateral aspect of the right lung which appears similar to the prior study and may be due to underlying COPD and scarring. Superimposed patchy ill-defined hazy airspace opacity in the right lung which may be due to pneumonia. Pleural space: No discernible pneumothorax. No large pleural effusion.Heart/Mediastinum: Multiple surgical clips in the mediastinum. Bones/joints: Unchanged. IMPRESSION: Increased interstitial markings bilaterally with pleural based nodular density in the lateral aspect of the right lung which appears similar to the prior study and may be due to underlying COPD and scarring. Superimposed patchy ill-defined hazy airspace opacity in the right lung which may be due to pneumonia. THIS DOCUMENT HAS BEEN ELECTRONICALLY SIGNED BY YAMILA KELLY MDThis document has been electronically signed by Yamila Kelly MD on 10/08/2019 1:40 AM Name Value Range Interpretation Code Description Data Neva rce(s) Supporting Document(s) ID Date Data Source [id number] 10/08/2019 02:04:54 AM [facility] Name Value Range Interpretation Code Description Data Neva rce(s) Supporting Document(s) Color of Urine [facility] Clarity of Urine [facility] Specific gravity of Urine by Refractometry automated 1.018 1.003 -1.030 [facility] pH of Urine by Automated test strip 8.0 5.0-8.0 [facility] Protein [Mass/volume] in Urine by Automated test strip Neg [facility] Glucose [Mass/volume] in Urine by Automated test strip Neg [facility] Ketones [Mass/volume] in Urine by Automated test strip 5 mg/dL Neg [facility] A [facility] Bilirubin.total [Presence] in Urine by Automated test strip Negative [facility] Hemoglobin [Presence] in Urine by Automated test strip Neg [facility] Leukocyte esterase [Presence] in Urine by Automated test strip Negative [facility] Nitrite [Presence] in Urine by Automated test strip Negati ve [facility] Leukocytes [#/area] in Urine sediment by Automated count 0 -5 [facility] Erythrocytes [#/area] in Urine sediment by Automated count 0 /HPF 0-3 [facility] ID Date Data Source [id number] 10/08/2019 01:32:13 AM [facility] Name Value Range Interpretation Code Description Data Neva rce(s) Supporting Document(s) Ammonia [Moles/volume] in Plasma 17 umol/L 16-60 [facility] ID Date Data Source [id number] 10/08/2019 01:10:03 AM [facility] Value Range Interpretation Code Description Data Neva rce(s) Supporting Document(s) Leukocytes [#/volume] in Blood by Automated count 6.9 10*3/uL 4-10 [facility] Erythrocytes [#/volume] in Blood by Automated count 3.13 10*6/uL 4.6- 6.1 L [facility] Hemoglobin [Mass/volume] in Blood 9.9 g/dL 13.5-18 L [facility] Hematocrit [Volume Fraction] of Blood by Automated count 28.8 % 4 1-53 L [facility] Erythrocyte mean corpuscular volume [Entitic volume] by Auto mated count 92.0 fL 80-96 [facility] Erythrocyte mean corpuscular hemoglobin [Entitic mass] by Automated count 31.7 pg 27-33 [facility] Erythrocyte mean corpuscular hemoglobin concentration [Mass/volume] by Automated count 34.5 g/dL 32.0-36.0 [facility] Erythrocyte distribution width [Ratio] by Automated count 15.6 % 11.5-14.5 H [facility] Platelets [#/volume] in Blood by Automated count 286 10*3/uL 150-400 [facility] Differential cell count method - Blood [facility] Neutrophils/100 leukocytes in Blood by Automated count 77 % [facility] Lymphocytes/100 leukocytes in Blood by Automated count 8 % [facility] Monocytes/100 leukocytes in Blood by Automated count 12 % [facility] Eosinophils/100 leukocytes in Blood by Automated count 3 % [facility] Basophils/100 leukocytes in Blood by Automated count 0 % [facility] Neutrophils [#/volume] in Blood by Automated count 5.33 10*3/uL 1.8-7 .0 [facility] Lymphocytes [#/volume] in Blood by Automated count 0.53 10*3/uL 1.2-4 .0 L [facility] Monocytes [#/volume] in Blood by Automated count 0.79 10*3/uL 0-0.8 [facility] Eosinophils [#/volume] in Blood by Automated count 0.22 10*3/uL 0-0.5 [facility] Basophils [#/volume] in Blood by Automated count 0.02 10*3/uL 0-0.2 [facility] Nucleated erythrocytes/100 leukocytes [Ratio] in Blood by Automated count 0 /100{WBCs} 0-0 [facility] ID Date Data Source [id number] 10/08/2019 01:22:47 AM [facility] Name Value Range Interpretation Code Description Data Neva rce(s) Supporting Document(s) Prothrombin time (PT) 13.6 s 12.5-14.9 [facility] INR in Platelet poor plasma by Coagulation assay 1.01 [facility] Routine intensity oral anticoagulation I NR is typically 2.0-3.0. Target INR must be clinically individualized. ID Date Data Source [id number] 10/08/2019 01:22:47 AM [facility] Value Range Interpretation Code Description Data Neva rce(s) Supporting Document(s) aPTT in Platelet poor plasma by Coagulation assay 28.3 s 24.0-34. 0 [facility] ID Date Data Source [id number] 10/08/2019 01:31:52 AM EST [facility] Name Value Range Interpretation Code Description Data Neva rce(s) Supporting Document(s) Acetaminophen [Mass/volume] in Serum or Plasma 10.0-30.0 L [facility] ID Date Data Source [id number] 10/08/2019 01:31:52 AM EST [facility] Name Value Range Interpretation Code Description Data Neva rce(s) Supporting Document(s) Ethanol [Mass/volume] in Serum or Plasma Negative [facility] ID Date Data Source [id number] 10/08/2019 01:31:52 AM [facility] Name Value Range Interpretation Code Description Data Neva rce(s) Supporting Document(s) Albumin [Mass/volume] in Serum or Plasma by Bromocresol green (BCG) dye binding method 3.9 g/dL 3.5-5.2 [facility] Bilirubin.total [Mass/volume] in Serum or Plasma 0.2 mg/dL <1.2 [facility] Calcium [Mass/volume] in Serum or Plasma 8.8 mg/dL 8.8-10.2 [facility] Chloride [Moles/volume] in Serum or Plasma 91 mmol/L 98-107 L [facility] Creatinine [Mass/volume] in Serum or Plasma 0.80 mg/dL 0.70-1.20 [facility] Glucose [Mass/volume] in Serum or Plasma 121 mg/dL 70-140 [facility] Alkaline phosphatase [Enzymatic activity/volume] in Serum or Plasma 91 U/L 40-129 [facility] Potassium [Moles/volume] in Serum or Plasma 3.6 mmol/L 3.4-5.1 [facility] Protein [Mass/volume] in Serum or Plasma 6.1 g/dL 6.4-8.3 L [facility] Sodium [Moles/volume] in Serum or Plasma 126 mmol/L 136-145 L [facility] Aspartate aminotransferase [Enzymatic activity/volume] in Serum or Plasma 12 U/L <40 [facility] Urea nitrogen [Mass/volume] in Serum or Plasma 17 mg/dL 8-23 [facility] Osmolality of Serum or Plasma by calculation 265 mosm/kg 275-300 L [facility] Creatinine/Urea nitrogen [Mass Ratio] in Serum or Plasma 21 [facility] Bicarbonate [Moles/volume] in Serum 22 mmol/L 22-29 [facility] Alanine aminotransferase [Enzymatic activity/volume] in Seru m or Plasma 11 U/L <41 [facility] Anion gap 3 in Serum or Plasma 13 mmol/L 8-15 [facility] Albumin/Globulin [Mass Ratio] in Serum or Plasma 1.8 [facility] Glomerular filtration rate/1.73 sq M pre dicted among non-blacks [Volume Rate/Area] in Serum or Plasma by Creatinine-based formula (MDRD) >6 0 [facility] Glomerular filtration rate/1.73 sq M pre dicted among blacks [Volume Rate/Area] in Serum or Plasma by Creatinine-based formula (MDRD) >60 [facility] ID Date Data Source [id number] 10/08/2019 01:31:52 AM [facility] Name Value Range Interpretation Code Description Data Neva rce(s) Supporting Document(s) Salicylates [Mass/volume] in Serum or Plasma 3.0-30.0 L [facility] ID Date Data Source [id number] 10/08/2019 01:00:22 AM [facility] Name Value Range Interpretation Code Description Data Neva rce(s) Supporting Document(s) pH of Venous blood 7.55 7.36-7.[address] [facility] Carbon dioxide [Partial pressure] in Venous blood 28 mmHg 40-45 L [facility] Oxygen [Partial pressure] in Venous blood 15 mmHg [facility] Base excess standard in Venous blood by calculation 3 mmol/L [facility] Oxygen saturation Calculated from oxygen partial pressure in Venous blood 25 % 60-85 L [facility] Lactate [Moles/volume] in Venous blood 1.6 mmol/L 0.5-2.2 [facility] Bicarbonate [Moles/volume] in Venous blood 25 mmol/L [facility] ID Date Data Source [id number] 10/08/2019 01:09:26 AM [facility] Name Value Range Interpretation Code Description Data Neva rce(s) Supporting Document(s) Sodium [Moles/volume] in Blood 125 mmol/L 136-145 L [facility] Potassium [Moles/volume] in Blood 3.9 mmol/L 3.4-5.1 [facility] Chloride [Moles/volume] in Blood 95 mmol/L 98-107 L [facility] Carbon dioxide, total [Moles/volume] in Blood 26 mmol/L 22-29 [facility] Calcium.ionized [Moles/volume] in Blood 1.11 mmol/L 1.13-1.32 [facility] Glucose [Mass/volume] in Blood 119 mg/dL 70-140 [facility] Urea nitrogen [Mass/volume] in Blood 20 mg/dL 8-23 [facility] Creatinine [Mass/volume] in Blood 0.8 mg/dL 0.70-1.20 [facility] Hematocrit [Volume Fraction] of Blood 28 % 41-53 [facility] Hemoglobin [Mass/volume] in Blood by calculation 9.5 g/dL 13.5-18.0 [facility] ID Date Data Source [id number] 09/25/2019 10:15:35 AM [facility] Name Value Range Interpretation Code Description Data Neva rce(s) Supporting Document(s) Progress Note [facility] SZQZZa3mLgTSKfFw47/CIOrlNMHst1QsSIqoQGe3UEcyWRKhN1OcQBV6gW7lGTN1QYhLJzXoMChyAeA7 lbm [file] ICAgICAgICAgICAgICAgICAgICAgICAgICAgICAgIC AgICAgICAgICAgICAgICAgICAgICAgICAgICAgICAgICAgICAgICAgICAgICAgICAgICAgICAgICANCi AgICAgICAgICAgICAgICAgICAgICAgICAgICAgICAgICAgICAgICAgICAgICAgICAgICAgICAgICAgIC AgICAgICAgICAgICAgICAgICAgICAgICAgICAgICAg ICAgICAgICANCiAgICAgICAgICAgICAgICAgICAgICAgICAgICAgICAgICAgICAgICAgICAgICAgICAg ICAgICAgICAgICAgICAgICAgICAgICAgICAgICAgICAgICAgICAgICAgICAgICAgICANCiAgICAgICAg ICAgICAgICAgICAgICAgICAgICAgICAgICAgICAgIC AgICAgICAgICAgICAgICAgICAgICAgICAgICAgICAgICAgICAgICAgICAgICAgICAgICAgICAgICAgIC ANCiAgICAgICAgICAgICAgICAgICAgICAgICAgICAgICAgICAgICAgICAgICAgICAgICAgICAgICAgIC AgICAgICAgICAgICAgICAgICAgICAgICAgICAgICAg ICAgICAgICAgICANCiAgICAgICAgICAgICAgICAgICAgICAgICAgICAgICAgICAgICAgICAgICAgICAg ICAgICAgICAgICAgICAgICAgICAgICAgICAgICAgICAgICAgICAgICAgICAgICAgICAgICANCiAgICAg ICAgICAgICAgICAgICAgICAgICAgICAgICAgICAgIC AgICAgICAgICAgICAgICAgICAgICAgICAgICAgICAgICAgICAgICAgICAgICAgICAgICAgICAgICAgIC AgICANCiAgICAgICAgICAgICAgICAgICAgICAgICAgICAgICAgICAgICAgICAgICAgICAgICAgICAgIC AgICAgICAgICAgICAgICAgICAgICAgICAgICAgICAg ICAgICAgICAgICAgICANCiAgICAgICAgICAgICAgICAgICAgICAgICAgICAgICAgICAgICAgICAgICAg ICAgICAgICAgICAgICAgICAgICAgICAgICAgICAgICAgICAgICAgICAgICAgICAgICAgICAgICANCiAg ICAgICAgICAgICAgICAgICAgICAgICAgICAgICAgIC AgICAgICAgICAgICAgICAgICAgICAgICAgICAgICAgICAgICAgICAgICAgICAgICAgICAgICAgICAgIC AgICAgICANCjw/uVJjC1mwiJMopiY2Q9hxWz5LPx2GXL6cw5OwXLPkJDlvviGiCaeZPxSiHCLfLuhKTa i0LGvrGW7FvYXbY7PtH1HpYCoyAU6YVNYoNYSxtHCu MJAzDXNvDgP8JNMxLTceQQ0MsVOzAOffUMZzGJVtOUQiVGBsEXXaCOZOUKDfEDNjGyVbEXLmYAJoBQBb SGRKBJL2ZAKfAwEjXNssIZ8Eq3VvcHQ3QDn+Tc5NAT3pm2JzTUxpQQSdEZ7ekp4ECIlIUfJzV8CflaW8 VXJ7JWRfYx7SFQYiBTAreCXvNwBfIVTAVvYbS5SrbH 81RLGXAh3+YTycwpEbDffICwE8KRSft0KhFIw7GB1JFHQuEOx7fXTqELWeV3Uha9YrNp53NXBdJhvgWM RmBZnfoADLUIKeRLPjeCszAhBkSKBvSUHvNL6yJQC8MNXzTaHmSXRLYD1KRBGlEKPrvTUiVEEgVJHHTQ 9LNPkdFGY4VJSyeiOhaZMsVQufRB8VBTJbzhHhDwXe MCBSDQo+Jf9UIH2zm9VjANu0YRKsf3ZhYNr3DL5DGTYqPXehDLFiGK0bf0AjO2K2CjO9hYUlE7ihpqzk P0XkvjUkdiAsKVNqZTAvDL6FQY5ZDB7EFQZcVGshSU4MHWL8WBu6YwU9OjixTMRhUVH4So1eWXqxNE1X RKl9M6BmX8BTAMWlVZFTIFKxiXW7EJBQPo0NJ3YDTq aHWPFUFd4DUrIuW5HAQ0wZR91RRO0MXRD+PiANCj4+BEafvjBiLbcJVbE4SVQqk9PiUPa1ZE7RZPNxDE geUI8IPPMuwV5cCPjeMG7PVrOfStQaGDLCOvZeZ29xhRStOMn5L8OmXqDfCEYtChdgOKWqVRqfLdBnTQ MgWyBdDQogID4+ID4+CEwlID4HBNurioShYWIuYj9U TXAwCWDlYK0lFKJcHFUyL1I0fOxeZEPXYvMzX6reyddkVE3dSFZfQ349rJatumIzWEX2KUNpZo4GZBDf KCT6DYJeiONyDtHzKBXYUYjkPE9DfMHzBZT0oX0eQYlcZTXwKRZnV8nEHtGovIzfVY87sCcexnQowQQx DQo+Vp0UXW2sl4IbNFu4zeRgZExxFLD0FKwgIYTkMU BtNVRsBOD1RBZ0AAUGKlTpBPGaJYJmURtzUAJjSIScpi8BLOOwMHE1FFm1JtUkMJZcSOXnBWhaREBhAA DfCtzbBDTdAQLpHR1CPyJiWGEeXIZvUAatHJZtZKKowv4UBTSlFWNhUzBfUHZcNSSfBCYpTCqmGVZvSF LcGRWiOEMlOXEjXX8IFmZhIPAeMTH6XADhHZSuKRLl dy6WLRJkALHiGln0VCSuOEEpCSJyJUjtEAHvBPE6DVK3KAGeFWQtDU0UVqFwOPXiTUTiZwoqXJYlOSVh yc9EEKJyBURfSGQ6RxEjXAEjZDNkGQwtKOKcTXC0PsWpXATiKKZxSY4WVzRuTXOzHHK4QfJaGMAiXMAf cj5ZQFXhGDIoGbnlTAWsNFGrNOJqUCskNLQfOMW7JQ HsTNXkCLJlHT7PPkEqBOStVyQ0DnEoOBAoBXHbnd6HZZJyKVLeDtT4TmMpEDNfWIEtEWcsHHKnJQH9Rz RuQKBzFEDxFJ4BOyMuKVWgRuF3ZvWtTXWfCPLgjr2RUEGgZCKtJLAmYaAsBAWpULJmMKonHPWmULA8Sv WoDGRaAVPuIP7JRtDiHJHeIlQ4INLnYYXyZQPcwy1K TWSkRRHsApf0FDNhLDHzKEZjRAqcLOVtIAD4WPR0SNBnGHSuPU3FNwJtJEEhJugwSZMlOQFfWRAvxd9V YLJuXHEqNMJ8HXUrQEBlPEAxBVljUVTjIAW1YSIdNQRiKVKwAV2VPkOuVJYiCvouCHnmNYYwCSLgbf8X XXJwHIZbOXE6IFDkUOSiRNHlGQmbMKDkUOI5GkA2EI KnVOJeUT9MFxFsVMDzJEK1SXenDJIoYDIpwi9TQXPpCFY2OHv9RrAsKXPeRGTsIAyaUYKcQRTzYCA8ON DbXWMdFB5ZYeHzHDCbNRYmXXPoOBJyQODswf8WQDUzUEP9YqkwABAfRYVvOOZeTNzqUFOoMHLjCPqkOR DgNSFjTM9PBaFlVNCfUHYmTSaaZRXmZTZafm2NyYBf oOlwun5LVGcFBe1BeHokTSL6TTekCi0ymEBlOqKnPITLLt3RejPmLVEgPDLKWEjsUDUgABOdXSMsYZcu YKZkDBM3EoA8XDPmVqOfGZR5CUejKSD7QxP3QvC7TQA6WFCwPWDtNOX0CuhmOsN3SVY7YdRsS9L4IdA+ AJ8tHBv+Df3Uo9MotoO5vzRgGCb9FlE5Ls0BMNUJC3YXCe== ID Date Data Source [id number] 09/22/2019 11:00:00 AM [facility] Name Value Range Interpretation Code Description Data Neva e(s) Supporting Document(s) Albumin [Mass/volume] in Serum or Plasma by Bromocresol green (BCG) dye binding method 4.2 g/dL 3.5-5.2 [facility] Bilirubin.total [Mass/volume] in Serum or Plasma 0.5 mg/dL <1.2 [facility] Calcium [Mass/volume] in Serum or Plasma 9.0 mg/dL 8.8-10.2 [facility] Chloride [Moles/volume] in Serum or Plasma 89 mmol/L 98-107 L [facility] Creatinine [Mass/volume] in Serum or Plasma 0.72 mg/dL 0.70-1.20 [facility] Glucose [Mass/volume] in Serum or Plasma 118 mg/dL 70-140 [facility] Alkaline phosphatase [Enzymatic activity/volume] in Serum or Plasma 102 U/L 40-129 [facility] Potassium [Moles/volume] in Serum or Plasma 4.1 mmol/L 3.4-5.1 [facility] Protein [Mass/volume] in Serum or Plasma 6.5 g/dL 6.4-8.3 [facility] Sodium [Moles/volume] in Serum or Plasma 125 mmol/L 136-145 L [facility] Aspartate aminotransferase [Enzymatic activity/volume] in Serum or Plasma 17 U/L <40 [facility] Urea nitrogen [Mass/volume] in Serum or Plasma 14 mg/dL 8-23 [facility] Osmolality of Serum or Plasma by calculation 262 mosm/kg 275-300 L [facility] Creatinine/Urea nitrogen [Mass Ratio] in Serum or Plasma 19 [facility] Bicarbonate [Moles/volume] in Serum 26 mmol/L 22-29 [facility] Alanine aminotransferase [Enzymatic activity/volume] in Seru m or Plasma 10 U/L <41 [facility] Anion gap 3 in Serum or Plasma 10 mmol/L 8-15 [facility] Albumin/Globulin [Mass Ratio] in Serum or Plasma 1.8 [facility] Glomerular filtration rate/1.73 sq M pre dicted among non-blacks [Volume Rate/Area] in Serum or Plasma by Creatinine-based formula (MDRD) >6 0 [facility] Glomerular filtration rate/1.73 sq M pre dicted among blacks [Volume Rate/Area] in Serum or Plasma by Creatinine-based formula (MDRD) >60 [facility] ID Date Data Source [id number] 09/22/2019 11:00:00 AM [facility] Name Value Range Interpretation Code Description Data Neva rce(s) Supporting Document(s) Thyrotropin [Units/volume] in Serum or Plasma 7.740 u[IU]/mL 0.270-4. 200 H [facility] ID Date Data Source [id number] 09/22/2019 11:02:08 AM [facility] Name Value Range Interpretation Code Description Data Neva rce(s) Supporting Document(s) Leukocytes [#/volume] in Blood by Automated count 7.8 10*3/uL 4-10 [facility] Erythrocytes [#/volume] in Blood by Automated count 4.24 10*6/uL 4.6- 6.1 L [facility] Hemoglobin [Mass/volume] in Blood 13.1 g/dL 13.5-18 [facility] Hematocrit [Volume Fraction] of Blood by Automated count 38.0 % 4 1-53 [facility] Erythrocyte mean corpuscular volume [Entitic volume] by Auto mated count 89.7 fL 80-96 [facility] Erythrocyte mean corpuscular hemoglobin [Entitic mass] by Automated count 31.0 pg 27-33 [facility] Erythrocyte mean corpuscular hemoglobin concentration [Mass/volume] by Automated count 34.5 g/dL 32.0-36.0 [facility] Erythrocyte distribution width [Ratio] by Automated count 16.2 % 11.5-14.5 H [facility] Platelets [#/volume] in Blood by Automated count 215 10*3/uL 150-400 [facility] Differential cell count method - Blood [facility] Neutrophils/100 leukocytes in Blood by Automated count 76 % [facility] Lymphocytes/100 leukocytes in Blood by Automated count 9 % [facility] Monocytes/100 leukocytes in Blood by Automated count 10 % [facility] Eosinophils/100 leukocytes in Blood by Automated count 4 % [facility] Basophils/100 leukocytes in Blood by Automated count 1 % [facility] Neutrophils [#/volume] in Blood by Automated count 5.95 10*3/uL 1.8-7 .0 [facility] Lymphocytes [#/volume] in Blood by Automated count 0.71 10*3/uL 1.2-4 .0 L [facility] Monocytes [#/volume] in Blood by Automated count 0.74 10*3/uL 0-0.8 [facility] Eosinophils [#/volume] in Blood by Automated count 0.32 10*3/uL 0-0.5 [facility] Basophils [#/volume] in Blood by Automated count 0.08 10*3/uL 0-0.2 [facility] Nucleated erythrocytes/100 leukocytes [Ratio] in Blood by Automated count 0 /100{WBCs} 0-0 [facility] ID Date Data Source [id number] 09/22/2019 12:56:10 PM [facility] Name Value Range Interpretation Code Description Data Neva rce(s) Supporting Document(s) Thyroxine (T4) free [Mass/volume] in Serum or Plasma 1.35 ng/dL 0.93- 1.70 [facility] ID Date Data Source [id number] 09/22/2019 03:39:37 PM [facility] Name Value Range Interpretation Code Description Data Neva rce(s) Supporting Document(s) Triiodothyronine (T3) [Mass/volume] in Serum or Plasma 75.70 ng/ dL 80.00-200.00 [facility] ID Date Data Source [id number] 09/14/2019 02:13:34 PM [facility] CT THORAX WITH CONTRAST [id number] RESUL TInterpreted by:Prabhjot Nguyen, MDCT thorax.INDICATION: Adenocarcinoma right lung.TECHNIQUE: A CT of the thorax was performed. 1 mm axial images were made after the intravenous administration of 100 MLO of Omnipaque 300. Comparison is made with an examination dated June 02, 2019. Automated dose reduction techniques and/or adjustment according to patient size were used.FINDINGS: There is a left infusion port. Infusion catheter tip terminates at the cavoatrial junction.Airway patency is demonstrated through at least the segmental level.Changes of mild centrilobular emphysema are present.Coarse irregular linear opacities are present in the left upper lobe. There are scattered patchy groundglass opacities in the left upper lobe is well. These findings are unchanged. Stable punctate nodules are seen in the lingula. They may actually be calcified. There are stable small nodules in the superior segment of the left lower lobe. There is a stable coarse predomin antly linear opacity with spiculated margins also in the superior segment of the left lower lobe. There is a new ill-defined nodular opacity in the posterior basilar segment of the left lower lobe. There are fibrotic changes at the left lung base.There is a 1.1 cm in diameter pleural-based nodule in the anterior portion of the right upper lobe. Its size is unchanged. It does however appear more homogeneous and denser than on the prior examination. There is adjacent bronchiectasis. There is a stable 1.7 cm in diameter pleural-based nodule in the anterior segment of the right upper lobe. There is a 4.3 cm pleural-based parenchymal density in the anterior segment of the right upper lobe. It is unchanged. There is a stable irregular, heterogeneous, approximately 1 cm in diameter opacity in the lateral segment of the right middle lobe. Stable pleural-based parenchymal opacities are identified in the superior and anterior basilar segments of the right lower lobe. They are essentially unchanged. There are fibrotic changes in the right lower lobe. They are unchanged.There is no evidence of pleural effusion. Right pleural thickening is present.There are degenerative changes in the thoracic spine. Patient is status post posterior right thoracotomy. There are multiple stable prominent mediastinal lymph nodes. There is a stable 1 cm short axis precarinal lymph node.Patient is status post esophagectomy with gastric pull-through. There is dilatation of the residual [place] upper thoracic esophagus.There are atherosclerotic changes in the thoracic aorta and branch vessels. There are no filling defects in the large central opacified pulmonary artery segments. Prominent collateral vessels are identified in the subcutaneous soft tissues of the right anterior chest wall. The right intercostal vessels are also extremely prominent. There is apparent focal segmental narrowing of the right innominate vein distal to its junction with the left brachiocephalic vein.IMPRESSION: There are stable bilateral parenc hymal changes. There is a new roughly nodular spiculated opacity in the left lower lobe. Radiographic follow-up is recommended.There is a 1.1 cm pleural- based nodule in the right upper lobe. It is unchanged in size but appears denser than on the prior examination. 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 Reassess disease.TECHNIQUE: Multidetector 5 mm and 1.[address] images were obtained from the domes of the diaphragm to the iliac crests and from the iliac crests to the greater trochanters with intravenous contrast. Oral contrast was administered. Coronal and sagittal images were reconstructed from the axial data. Automated dose lowering techniques and/or adjustment according to patient size were utilized for this exam.COMPARISON: CT abdomen pelvis dated 06/02/2019.FINDINGS: Lungs: The lung bases demonstrate emphysematous changes. Chronic interstitial disease is present in the peripheral distribution in the right greater than left lung base. The patient is status post a gastric pull-up which appears grossly unremarkable.The heart size is within normal limits. There are no pleural or pericardial effusions.Please refer to the CT thorax done at the same time for findings above the diaphragm.Liver: Multiple sclerosis too small to characterize areas of low density measuring approximately 5 mm are present in the right lobe of the liver. These were present on the previous study and are not significantly changed. There is no evidence of intrahepatic biliary duct dilatation. A focal area of low density is present adjacent to the falcif orm ligament in segment IVb. This measures 1.9 cm and was present on the previous study. It is not significantly changed in size. It could represent a focal area of fatty infiltration but cannot exclude other etiologies. Recommend continued follow-up. The liver is lower in attenuation than the spleen suggesting diffuse fatty infiltration.There is mild prominence of the pancreatic duct within the pancreatic neck. No discrete pancreatic masses are demonstrated. However, there is vague soft tissue density noted within the portacaval space measuring 2.3 x 1.5 x 2.1 cm. It is inseparable from the pancr eatic head and distal common bile duct. It could represent a lymph node or be related to bowel. Other etiologies are not excluded. Was present on the previous study when it measured 2.3 x 1.6 x 1.7 cm. Recommend continued follow-up and clinical correlation.There is a 2.8 x 4.3 cm mass with rim calcification. The etiology is uncertain. It is located within the mesentery and is inseparable from the adjacent bowel loops. Differential includes a focal area of fat necrosis or calcified lymph node or treated disease.. It is stable compared to the previous study. A 3 x 1.7 cm similar calcified mass is present in the left upper quadrant, it is inseparable from the spleen. It is stable compared to the previous study.The patient is status post a gastric pull-up. There is minimal thickening of the wall through the pull-up. The remainder of the small bowel loops are unremarkable. Retained stool is present throughout the colon which limits its evaluation for masses. Diverticulosis is noted in the left colon wi thout evidence of acute diverticulitis. A normal appendix is present.Evaluation of the pelvis is as described above. In addition there is no evidence of significant lymphadenopathy within the pelvis. No no free fluid is demonstrated.The urinary bladder is unremarkable except for projection of the prostate over the base of the urinary bladder. The prostate is prominent.Degenerative changes are present in the bilateral femoral heads and hip joints and lumbosacral spine.Body wall: The patient is status post a left inguinal hernia repair.Vasculature: Extensive atherosclerotic vascular calcifications are noted within the tortuous descending aorta and the coronary arteries. Atherosclerotic changes are present in the abdominal aorta. The abdominal aorta is ectatic in segments and there is no evidence of dissection.IMPRESSION: Status post a gastric pull-up with mild thickening of the pull-up in the distal portion.Multiple too small to characterize low-density lesions within the liver as described above. They're unchanged compared to the previous study.Findings which could represent a focal area of fatty infiltration adjacent to the falciform ligament. Cannot exclude other etiologies and continued follow-up is recommended. It is stable since previous study.Calcifications within the omentum/mesentery as well as adjacent to the spleen. These could represent treated disease, fat necrosis or calcified lymph nodes. Other etiologies are not excluded and continued follow-up is suggested. These unchanged since the previous study.Prominent prostate.This document has been electronically signed by Karmen Solorio MD on 09/13/2019 4:32 PM Name Value Range Interpretation Code Description Data Neva rce(s) Supporting Document(s) Procedure Social History Code Duration Value Status Description Data Source(s ) Alcohol intake 10/23/2020 12:00:00 AM EST Current non-d judit of alcohol (finding) completed Current non-drinker of alcohol (finding) [facility] Tobacco use and exposure 10/23/2020 12:00:00 AM EST Never used co mpleted Never used [facility] Cigarette pack-years 10/23/2020 12:00:00 AM EST UNK [facility] Cigarettes smoked current (pack per day) - Reported 10/23/19 21 12:00:00 AM EST UNK [facility] Smoking 10/23/2020 12:00:00 AM EST Former smoker completed Former smoker [facility] Alcohol intake 09/27/2020 12:00:00 AM EST Current non-d judit of alcohol (finding) completed Current non-drinker of alcohol (finding) [facility] Alcohol intake 09/03/2020 12:00:00 AM EST Current non-d judit of alcohol (finding) completed Current non-drinker of alcohol (finding) [facility] Alcohol intake 08/13/2020 12:00:00 AM EDT Current non-d judit of alcohol (finding) completed Current non-drinker of alcohol (finding) [facility] Smoking 07/23/2020 12:00:00 AM EDT Patient is a former smoker completed Patient is a former smoker [facility] ([facility]) Alcohol intake 07/19/2020 12:00:00 AM EDT Current non-d judit of alcohol (finding) completed Current non-drinker of alcohol (finding) [facility] Alcohol intake 06/21/2020 12:00:00 AM EDT Current non-d judit of alcohol (finding) completed Current non-drinker of alcohol (finding) [facility] Smoking 06/11/2020 12:00:00 AM EDT Patient is a former smoker completed Patient is a former smoker [facility] Smoking 06/05/2020 12:00:00 AM EDT Never Smoked A Pipe complet ed Never Smoked A Pipe [facility] ([facility]) Alcohol intake 05/31/2020 12:00:00 AM EDT Current non-d judit of alcohol (finding) completed Current non-drinker of alcohol (finding) [facility] Alcohol intake 05/10/2020 12:00:00 AM EDT Current non-d judit of alcohol (finding) completed Current non-drinker of alcohol (finding) [facility] Cigarette pack-years 05/10/2020 12:00:00 AM EDT UNK completed [facility] Cigarettes smoked current (pack per day) - Reported 05/10/20 12:00:00 AM EDT UNK completed [facility] Smoking 05/10/2020 12:00:00 AM EDT Former smoker completed Former smoker [facility] Alcohol intake 04/19/2020 12:00:00 AM EDT Current non-d judit of alcohol (finding) completed Current non-drinker of alcohol (finding) [facility] Cigarette pack-years 04/19/2020 12:00:00 AM EDT UNK [facility] Cigarettes smoked current (pack per day) - Reported 04/19/20 12:00:00 AM EDT UNK completed [facility] Smoking 04/19/2020 12:00:00 AM EDT Former smoker completed Former smoker [facility] Alcohol intake 03/29/2020 12:00:00 AM EDT Current non-d judit of alcohol (finding) completed Current non-drinker of alcohol (finding) [facility] Cigarette pack-years 03/29/2020 12:00:00 AM EDT UNK completed [facility] Cigarettes smoked current (pack per day) - Reported 03/29/20 12:00:00 AM EDT UNK completed [facility] Smoking 03/29/2020 12:00:00 AM EDT Former smoker completed Former smoker [facility] Alcohol intake 03/08/2020 12:00:00 AM EDT Current non-d judit of alcohol (finding) completed Current non-drinker of alcohol (finding) [facility] Cigarette pack-years 03/08/2020 12:00:00 AM EDT UNK completed [facility] Cigarettes smoked current (pack per day) - Reported 03/08/20 12:00:00 AM EDT UNK completed [facility] Smoking 03/08/2020 12:00:00 AM EDT Former smoker completed Former smoker [facility] Alcohol intake 02/14/2020 12:00:00 AM EDT Current non-d judit of alcohol (finding) completed Current non-drinker of alcohol (finding) [facility] Cigarette pack-years 02/14/2020 12:00:00 AM EDT UNK [facility] Cigarettes smoked current (pack per day) - Reported 02/14/20 12:00:00 AM EDT UNK completed [facility] Smoking 02/14/2020 12:00:00 AM EDT Former smoker completed Former smoker [facility] Alcohol intake 02/03/2020 12:00:00 AM EDT Current non-d judit of alcohol (finding) completed Current non-drinker of alcohol (finding) [facility] Cigarette pack-years 02/03/2020 12:00:00 AM EDT UNK completed [facility] Cigarettes smoked current (pack per day) - Reported 02/03/20 12:00:00 AM EDT UNK completed [facility] Smoking 02/03/2020 12:00:00 AM EDT Former smoker completed Former smoker [facility] Alcohol intake 01/13/2020 12:00:00 AM EDT Current non-d judit of alcohol (finding) completed Current non-drinker of alcohol (finding) [facility] Cigarette pack-years 01/13/2020 12:00:00 AM EDT UNK completed [facility] Cigarettes smoked current (pack per day) - Reported 01/13/20 12:00:00 AM EDT UNK completed [facility] Smoking 01/13/2020 12:00:00 AM EDT Former smoker completed Former smoker [facility] Alcohol intake 12/18/2019 12:00:00 AM EST Current non-d judit of alcohol (finding) completed Current non-drinker of alcohol (finding) [facility] Cigarette pack-years 12/18/2019 12:00:00 AM EST UNK completed [facility] Cigarettes smoked current (pack per day) - Reported 12/18/19 12:00:00 AM EST UNK completed [facility] Smoking 12/18/2019 12:00:00 AM EST Former smoker completed Former smoker [facility] Alcohol intake 11/17/2019 12:00:00 AM EST Current non-d judit of alcohol (finding) completed Current non-drinker of alcohol (finding) [facility] Cigarette pack-years 11/17/2019 12:00:00 AM EST UNK completed [facility] Cigarettes smoked current (pack per day) - Reported 11/17/19 12:00:00 AM EST UNK completed [facility] Smoking 11/17/2019 12:00:00 AM EST Former smoker completed Former smoker [facility] Alcohol intake 10/27/2019 12:00:00 AM EST Current non-d judit of alcohol (finding) completed Current non-drinker of alcohol (finding) [facility] Cigarette pack-years 10/27/2019 12:00:00 AM EST UNK completed [facility] Cigarettes smoked current (pack per day) - Reported 10/27/19 12:00:00 AM EST UNK completed [facility] Smoking 10/27/2019 12:00:00 AM EST Former smoker completed Former smoker [facility] Alcohol intake 10/20/2019 12:00:00 AM EST Current non-d judit of alcohol (finding) completed Current non-drinker of alcohol (finding) [facility] Cigarette pack-years 10/20/2019 12:00:00 AM EST UNK completed [facility] Cigarettes smoked current (pack per day) - Reported 10/20/19 12:00:00 AM EST UNK completed [facility] Smoking 10/20/2019 12:00:00 AM EST Former smoker completed Former smoker [facility] Alcohol intake 10/08/2019 12:00:00 AM EST Current non-d judit of alcohol (finding) completed Current non-drinker of alcohol (finding) [facility] Cigarette pack-years 10/08/2019 12:00:00 AM EST UNK [facility] Cigarettes smoked current (pack per day) - Reported 10/08/20 12:00:00 AM EST UNK completed [facility] Smoking 10/08/2019 12:00:00 AM EST Former smoker completed Former smoker [facility] Alcohol intake 09/22/2019 12:00:00 AM EST Current non-d judit of alcohol (finding) completed Current non-drinker of alcohol (finding) [facility] Cigarette pack-years 09/22/2019 12:00:00 AM EST UNK [facility] Cigarettes smoked current (pack per day) - Reported 09/22/20 12:00:00 AM EST UNK completed [facility] Smoking 09/22/2019 12:00:00 AM EST Former smoker completed Former smoker [facility] Vital Signs ID Date Data Source UNK Name Value Range Interpretation Code Description Data Source(s) Body surface area Derived from formula 1.80 m2 1.80 m2 [facility] ([facility]) Body mass index (BMI) [Ratio] 22.5 kg/m2 22.5 k g/m2 [facility] ([facility]) Body height 68 [in_i] 68 [in_i] [facility] ([facility]) 5'8" Body weight 67.133 kg 67.133 kg [facility] ([facility]) Body weight 148.00 [lb_av] 148.00 [lb_av] [facility] ([facility]) Oxygen saturation in Arterial blood by Pulse oximetry 99 % 99 % [facility] ([facility]) Body temperature 98.7 [degF] 98.7 [degF] [facility] ([facility]) Heart rate 60 /min 60 /min [facility] ([facility]) Diastolic blood pressure 72 mm[Hg] 72 mm[Hg] [facility] ([facility]) Systolic blood pressure 136 mm[Hg] 136 mm[Hg] [facility] Body surface area Derived from formula 1.68 m2 1.68 m2 [place] ([facility]) Body mass index (BMI) [Ratio] 21.7 kg/m2 21.7 k g/m2 [place] ([facility]) Body weight 133.25 [lb_av] 133.25 [lb_av] [facility] ([facility]) Body height 65.75 [in_i] 65.75 [in_i] [place] ([facility]) Respiratory rate 20 /min 20 /min [place] ([facility]) Heart rate 80 /min 80 /min [place] ([facility]) Diastolic blood pressure 74 mm[Hg] 74 mm[Hg] [place] ([facility]) Systolic blood pressure 158 mm[Hg] 158 mm[Hg] [facility] ([facility]) Body surface area Derived from formula 1.68 m2 1.68 m2 [place] ([facility]) Body mass index (BMI) [Ratio] 21.7 kg/m2 21.7 k g/m2 [place] ([facility]) Body weight 133.25 [lb_av] 133.25 [lb_av] [facility] ([facility]) Body height 65.75 [in_i] 65.75 [in_i] [place] ([facility]) Respiratory rate 20 /min 20 /min [place] ([facility]) Heart rate 80 /min 80 /min [place] ([facility]) Diastolic blood pressure 74 mm[Hg] 74 mm[Hg] [place] ([facility]) Systolic blood pressure 158 mm[Hg] 158 mm[Hg] [facility] ([facility]) Body weight 60.442 kg 60.442 kg [facility] [place] body weight 154 [lb_av] 154 [lb_av] [facility] ([facility] ) Body mass index (BMI) [Ratio] 20.3 kg/m2 20.3 k g/m2 [facility] Body weight 133.25 [lb_av] 133.25 [lb_av] [facility] ([facility] ) Body height 68 [in_i] 68 [in_i] [facility] 5'8" Diastolic blood pressure 72 mm[Hg] 72 mm[Hg] [facility] Systolic blood pressure 132 mm[Hg] 132 mm[Hg] [facility] Oxygen saturation in Arterial blood by Pulse oximetry 99 % 99 % [facility] Body mass index (BMI) [Ratio] 20.8 kg/m2 20.8 k g/m2 [facility] ([facility]) Body weight 133.00 [lb_av] 133.00 [lb_av] [facility] ([facility]) Body height 67 [in_i] 67 [in_i] [facility] 5'7" Heart rate 84 /min 84 /min [facility] Diastolic blood pressure 70 mm[Hg] 70 mm[Hg] [facility] ([facility]) Systolic blood pressure 118 mm[Hg] 118 mm[Hg] [facility] Body surface area Derived from formula 1.69 m2 1.69 m2 [place] ([facility]) Body mass index (BMI) [Ratio] 22.0 kg/m2 22.0 k g/m2 [place] ([facility]) Body weight 135 [lb_av] 135 [lb_av] [place] ([facility]) Body height 65.75 [in_i] 65.75 [in_i] [place] ([facility]) Respiratory rate 24 /min 24 /min [place] ([facility]) Heart rate 74 /min 74 /min [place] ([facility]) Diastolic blood pressure 60 mm[Hg] 60 mm[Hg] [place] ([facility]) Systolic blood pressure 136 mm[Hg] 136 mm[Hg] [facility] Body weight 60.782 kg 60.782 kg [facility] ([facility], ) [place] body weight 154 [lb_av] 154 [lb_av] [facility] ([facility] ) Body mass index (BMI) [Ratio] 20.4 kg/m2 20.4 k g/m2 [facility] ([facility] ) Body weight 134.00 [lb_av] 134.00 [lb_av] [facility] ([facility]) Body height 68 [in_i] 68 [in_i] [facility] ([facility]) 5'8" Body temperature 97.9 [degF] 97.9 [degF] [facility] ([facility]) Oxygen saturation in Arterial blood by Pulse oximetry 100 % 100 % [facility] ([facility]) Heart rate 102 /min 102 /min [facility] ([facility]) Diastolic blood pressure 80 mm[Hg] 80 mm[Hg] [facility] ([facility]) Systolic blood pressure 130 mm[Hg] 130 mm[Hg] [facility] ([facility]) Body weight 69.401 kg 69.401 kg [facility] Body weight 153.00 [lb_av] 153.00 [lb_av] [facility] ([facility]) Respiratory rate 16 /min 16 /min [facility] ( [facility] [facility]) Body temperature 97.2 [degF] 97.2 [degF] [facility] ([facility]) Oxygen saturation in Arterial blood by Pulse oximetry 97 % 97 % [facility] ([facility]) Respiratory rate 18 /min 18 /min [facility] ( [facility]) Heart rate 82 /min 82 /min [facility] ([facility]) Diastolic blood pressure 92 mm[Hg] 92 mm[Hg] [facility] ([facility]) Systolic blood pressure 186 mm[Hg] 186 mm[Hg] [facility] ([facility]) Systolic blood pressure 118 mm[Hg] 118 mm[Hg] [facility] ([facility]) Body weight 60.329 kg 60.329 kg [facility] ([facility]) Body mass index (BMI) [Ratio] 20.2 kg/m2 20.2 k g/m2 [facility] ([facility]) Body weight 133.00 [lb_av] 133.00 [lb_av] [facility] ([facility]) Body height 68 [in_i] 68 [in_i] [facility] ([facility]) 5'8" Body temperature 97.9 [degF] 97.9 [degF] [facility] Oxygen saturation in Arterial blood by Pulse oximetry 92 % 92 % [facility] ) Heart rate 71 /min 71 /min [facility] ([facility], ) Diastolic blood pressure 68 mm[Hg] 68 mm[Hg] [facility] ([facility] ) Body surface area 1.73 m2 1.73 m2 [facility] ([facility]) Body mass index (BMI) [Ratio] 20.5 kg/m2 20.5 k g/m2 [facility] ([facility]) Body height 68 [in_i] 68 [in_i] [facility] ([facility]) 5'8" Body weight 61.236 kg 61.236 kg [facility] ([facility]) Body weight 135.00 [lb_av] 135.00 [lb_av] [facility] ([facility]) Oxygen saturation in Arterial blood by Pulse oximetry 96 % 96 % [facility]) Respiratory rate 18 /min 18 /min [facility] ( [facility]) Heart rate 75 /min 75 /min [facility] ([facility]) Diastolic blood pressure 81 mm[Hg] 81 mm[Hg] [facility] ([facility]) Systolic blood pressure 153 mm[Hg] 153 mm[Hg] [facility] ([facility]) Body weight 62.597 kg 62.597 kg [facility] ([facility], ) Body mass index (BMI) [Ratio] 21.0 kg/m2 21.0 k g/m2 [facility] ([facility] ) Body weight 138.00 [lb_av] 138.00 [lb_av] [facility] ([facility] ) Body height 68 [in_i] 68 [in_i] [facility] ([facility], ) 5'8" Body temperature 97.5 [degF] 97.5 [degF] [facility] ) Oxygen saturation in Arterial blood by Pulse oximetry 99 % 99 % [facility] ([facility] ) Heart rate 78 /min 78 /min [facility] ) Diastolic blood pressure 70 mm[Hg] 70 mm[Hg] [facility] ([facility] ) Systolic blood pressure 138 mm[Hg] 138 mm[Hg] [facility] Body height 65.75 [in_i] 65.75 [in_i] [place] ([facility]) Heart rate 71 /min 71 /min [place] ([facility]) Diastolic blood pressure 76 mm[Hg] 76 mm[Hg] [place] ([facility]) Systolic blood pressure 141 mm[Hg] 141 mm[Hg] [facility] ([facility]) Body surface area Derived from formula 1.66 m2 1.66 m2 [place] ([facility]) Body mass index (BMI) [Ratio] 21.0 kg/m2 21.0 k g/m2 [place] ([facility]) Body weight 129 [lb_av] 129 [lb_av] [place] ([facility]) Body height 65.75 [in_i] 65.75 [in_i] [place] ([facility]) Respiratory rate 24 /min 24 /min [place] ([facility]) Heart rate 72 /min 72 /min [place] ([facility]) Diastolic blood pressure 70 mm[Hg] 70 mm[Hg] [place] ([facility]) Systolic blood pressure 152 mm[Hg] 152 mm[Hg] [facility] ([employer] [facility]) Body surface area Derived from formula 1.64 m2 1.64 m2 [place] ([facility]) Body mass index (BMI) [Ratio] 20.7 kg/m2 20.7 k g/m2 [place] ([facility]) Body weight 127 [lb_av] 127 [lb_av] [place] ([facility]) Body height 65.75 [in_i] 65.75 [in_i] [place] ([facility]) Respiratory rate 20 /min 20 /min [place] ([facility]) Heart rate 80 /min 80 /min [place] ([facility] [employer] [facility]) Diastolic blood pressure 68 mm[Hg] 68 mm[Hg] [place] ([facility]) Systolic blood pressure 126 mm[Hg] 126 mm[Hg] [facility] ([facility]) ID Date Data Source [id number] 10/28/2020 12:00:33 PM EST [facility] Name Value Range Interpretation Code Description Data Source(s) WEIGHT RECORDED 129 lb 129 lb [facility] ID Date Data Source [id number] 09/28/2020 04:45:54 PM EST [facility] Name Value Range Interpretation Code Description Data Source(s) WEIGHT RECORDED 133 lb 133 lb [facility] ID Date Data Source [id number] 09/06/2020 09:06:28 AM EST [facility] Name Value Range Interpretation Code Description Data Source(s) WEIGHT RECORDED 130.2 lb 130.2 lb [facility] ID Date Data Source [id number] 08/17/2020 09:06:03 AM EDT [facility] Name Value Range Interpretation Code Description Data Source(s) WEIGHT RECORDED 130 lb 130 lb [facility] ID Date Data Source [id number] 07/19/2020 03:58:41 PM EDT [facility] Name Value Range Interpretation Code Description Data Source(s) WEIGHT RECORDED 132 lb 132 lb [facility] ID Date Data Source [id number] 06/24/2020 12:09:13 PM EDT [facility] Name Value Range Interpretation Code Description Data Source(s) WEIGHT RECORDED 131 lb 131 lb [facility] ID Date Data Source [id number] 06/01/2020 08:48:54 AM EDT [facility] Name Value Range Interpretation Code Description Data Source(s) WEIGHT RECORDED 136 lb 136 lb [facility] ID Date Data Source [id number] 06/05/2020 09:10:31 AM EDT [facility] Name Value Range Interpretation Code Description Data Source(s) WEIGHT RECORDED 133.00 pounds 133.00 pounds [facility] Height 69 Inches 069 Inches [facility] ID Date Data Source [id number] 05/11/2020 08:39:46 AM EDT [facility] Name Value Range Interpretation Code Description Data Source(s) WEIGHT RECORDED 133 lb 133 lb [facility] ID Date Data Source [id number] 04/19/2020 03:47:51 PM EDT [facility] Name Value Range Interpretation Code Description Data Source(s) WEIGHT RECORDED 134 lb 134 lb [facility] Hospital ID Date Data Source [id number] 03/30/2020 08:53:55 AM EDT [facility] Name Value Range Interpretation Code Description Data Source(s) WEIGHT RECORDED 134.8 lb 134.8 lb [facility] ID Date Data Source [id number] 03/09/2020 10:01:32 AM EDT [facility] Name Value Range Interpretation Code Description Data Source(s) WEIGHT RECORDED 136 lb 136 lb [facility] Hospital ID Date Data Source [id number] 02/15/2020 12:29:18 PM EDT [facility] Name Value Range Interpretation Code Description Data Source(s) WEIGHT RECORDED 137 lb 137 lb [facility] ID Date Data Source [id number] 02/03/2020 12:49:30 PM EDT [facility] Name Value Range Interpretation Code Description Data Source(s) WEIGHT RECORDED 136 lb 136 lb [facility] Hospital ID Date Data Source [id number] 01/13/2020 11:13:28 AM EDT [facility] Name Value Range Interpretation Code Description Data Source(s) WEIGHT RECORDED 133 lb 133 lb [facility] ID Date Data Source [id number] 12/18/2019 12:08:23 PM EST [facility] Name Value Range Interpretation Code Description Data Source(s) WEIGHT RECORDED 131 lb 131 lb [facility] ID Date Data Source [id number] 11/18/2019 12:09:36 PM EST [facility] Name Value Range Interpretation Code Description Data Source(s) WEIGHT RECORDED 132 lb 132 lb [facility] Hospital ID Date Data Source [id number] 10/28/2019 09:20:18 AM [facility] Name Value Range Interpretation Code Description Data Source(s) WEIGHT RECORDED 127 lb 127 lb [facility] Hospital ID Date Data Source [id number] 10/21/2019 10:35:13 AM EST [facility] Name Value Range Interpretation Code Description Data Source(s) WEIGHT RECORDED 126 lb 126 lb [facility] Hospital ID Date Data Source [id number] 10/24/2019 10:02:41 AM [facility] Name Value Range Interpretation Code Description Data Source(s) WEIGHT RECORDED 124.80 pounds 124.80 pounds [facility] Height 68 Inches 068 Inches [facility] ID Date Data Source [id number] 10/20/2019 03:02:30 PM [facility] Name Value Range Interpretation Code Description Data Source(s) WEIGHT RECORDED 120 lb 120 lb [facility] Body height Measured 69 in 69 in [facility] ID Date Data Source [id number] 09/25/2019 10:42:35 AM [facility] Name Value Range Interpretation Code Description Data Source(s) WEIGHT RECORDED 132 lb 132 lb [facility] Patient Treatment Plan of Care Planned Activity Planned Date Details Description Data Source (s) Levetiracetam 500 MG Oral Tablet 07/04/2020 12:00:00 AM [facility]) Famotidine 40 MG Oral Tablet 06/19/2020 12:00:00 AM [facility]) Sodium Chloride 1000 MG Oral Tablet 04/02/2020 12:00:00 AM [facility]) Flonase Allergy Relief 50 MCG/ACT Nasal Suspension 03/07/2020 12 :00:00 AM [facility]) Flonase Allergy Relief 50 MCG/ACT Nasal Suspension 02/29/2020 12 :00:00 AM [facility]) gabapentin 100 MG Oral Capsule 02/10/2020 12:00:00 AM [facility]) Flonase Allergy Relief 50 MCG/ACT Nasal Suspension 01/20/2020 12 :00:00 AM [facility]) Loratadine 10 MG Oral Tablet 01/20/2020 12:00:00 AM [facility]) Levetiracetam 500 MG Oral Tablet 12/20/2019 12:00:00 AM [facility]) Finasteride 5 MG Oral Tablet 12/06/2019 12:00:00 AM [facility]) Sodium Chloride 1000 MG Oral Tablet 11/29/2019 12:00:00 AM [facility]) Tamsulosin hydrochloride 0.4 MG Oral Capsule [Flomax] 11/29/2019 12:00:00 AM [facility]) Sodium Chloride 1000 MG Oral Tablet 11/15/2019 12:00:00 AM [facility]) Levetiracetam 500 MG Oral Tablet 11/10/2019 12:00:00 AM [facility]) Sodium Chloride 1000 MG Oral Tablet 10/25/2019 12:00:00 AM [facility]) Oseltamivir 75 MG Oral Capsule [Tamiflu] 10/25/2019 12:00:00 AM [facility]) pantoprazole 40 MG Delayed Release Oral Tablet 10/14/2019 07:30:00 AM [facility] Levetiracetam 500 MG Oral Tablet 10/13/2019 12:00:00 AM [facility] Sodium Chloride 1000 MG Oral Tablet 10/13/2019 12:00:00 AM [facility] Ondansetron 4 MG Disintegrating Oral Tablet 10/10/2019 08:30:21 AM [facility] Sucralfate 1000 MG Oral Tablet 09/09/2019 12:00:00 AM [facility]) Loratadine 10 MG Oral Tablet 08/17/2019 12:00:00 AM [facility]) 200 ACTUAT Albuterol 0.09 MG/ACTUAT Metered Dose Inhal er [Ventolin] 08/01/2019 12:00:00 AM [facility] ([facility]) Tamsulosin hydrochloride 0.4 MG Oral Capsule [Flomax] 07/04/2019 12:00:00 AM [facility]) gabapentin 100 MG Oral Capsule 03/08/2019 12:00:00 AM [facility]) Ranitidine 150 MG Oral Tablet 02/08/2019 12:00:00 AM [facility] Finasteride 5 MG Oral Tablet 02/08/2019 12:00:00 AM [facility]) Flonase Allergy Relief 50MCG/ACT Nasal Suspension 11/17/2018 12: 00:00 AM [facility]) ALPHA LIPOIC ACID [facility]
[2020-11-05] MEDS ORDERED: ONDANSETRON 4MG/2ML VIAL IV ONE (17:00)
[2020-11-05] MEDS: MORPHINE 2 MG/ML 1ML VIAL (J2270) IV PRN ×2 (17:03→18:07)
--- OUTSIDE RECORDS SUMMARY | 2020-11-05 17:09 | CCD ---
Author Author [facility] Organization [facility] Address Unknown Phone Unavailable Care Team Providers Care Handle Bender Name Role Phone Suryadevara, C Taco Unavailable Unavailable Suryadevara, C Taco Unavailable Unavailable Suryadevara, C Taco Unavailable Unavailable Suryadevara, C Taco Unavailable Unavailable Suryadevara, C Taco Unavailable Unavailable Suryadevara, C Taco Unavailable Unavailable Worthington, C Adelina DO Unavailable Unavailable Worthington, C Adelina DO Unavailable Unavailable Worthington, C Adelina DO Unavailable Unavailable Jose, C Adelina DO Unavailable Unavailable Jose, C Adelina DO Unavailable Unavailable Worthington, C Adelina DO Unavailable Unavailable Jose, C Adelina DO Unavailable Unavailable Jose, C Adelina DO Unavailable Unavailable Worthington, C Adelina DO Unavailable Unavailable Worthington, C Adelina DO Unavailable Unavailable Worthington, C Adelina DO Unavailable Unavailable Worthington, C Adelina DO Unavailable Unavailable Jose, C Adelina DO Unavailable Unavailable Jose, C Adelina DO Unavailable Unavailable Worthington, C Adelina DO Unavailable Unavailable Jose, C Adelina DO Unavailable Unavailable Worthington, C Adelina DO Unavailable Unavailable Jose, C Adelina DO Unavailable Unavailable Jose, C Adelina DO Unavailable Unavailable Jose, C Adelina DO Unavailable Unavailable Jose, C Adelina DO Unavailable Unavailable Worthington, C Adelina DO Unavailable Unavailable Jose, C Adelina DO Unavailable Unavailable Worthington, C Adelina DO Unavailable Unavailable Worthington, C Adelina DO Unavailable Unavailable Jose, C Adelina DO Unavailable Unavailable Jose, C Adelina DO Unavailable Unavailable Worthington, C Adelina DO Unavailable Unavailable Jose, C Adelina DO Unavailable Unavailable Worthington, C Adelina DO Unavailable Unavailable Worthington, C Adelina DO Unavailable Unavailable Jose, C Adelina DO Unavailable Unavailable Jose, C Adelina DO Unavailable Unavailable Ankit, E [...] Brenda Hernandez MD Unavailable Unavailable THABET, MORRIS VP DELIVERY Unavailable Unavailable THABET, MORRIS VP DELIVERY Unavailable Unavailable THABET, MORRIS VP DELIVERY Unavailable Unavailable THABET, MORRIS VP DELIVERY Unavailable Unavailable THABET, MORRIS VP DELIVERY Unavailable Unavailable THABET, MORRIS VP DELIVERY Unavailable Unavailable THABET, MORRIS VP DELIVERY Unavailable Unavailable THABET, MORRIS VP DELIVERY Unavailable Unavailable THABET, MORRIS VP DELIVERY Unavailable Unavailable THABET, MORRIS VP DELIVERY Unavailable Unavailable THABET, MORRIS VP DELIVERY Unavailable Unavailable THABET, MORRIS VP DELIVERY Unavailable Unavailable THABET, MORRIS VP DELIVERY Unavailable Unavailable THABET, MORRIS VP DELIVERY Unavailable Unavailable THABET, MORRIS VP DELIVERY Unavailable Unavailable THABET, MORRIS VP DELIVERY Unavailable Unavailable THABET, MORRIS VP DELIVERY Unavailable Unavailable THABET, MORRIS VP DELIVERY Unavailable Unavailable THABET, MORRIS VP DELIVERY Unavailable Unavailable THABET, MORRIS VP DELIVERY Unavailable Unavailable THABET, MORRIS VP DELIVERY Unavailable Unavailable THABET, MORRIS VP DELIVERY Unavailable Unavailable THABET, MORRIS VP DELIVERY Unavailable Unavailable THABET, MORRIS VP DELIVERY Unavailable Unavailable THABET, MORRIS VP DELIVERY Unavailable Unavailable THABET, MORRIS VP DELIVERY Unavailable Unavailable THABET, MORRIS VP DELIVERY Unavailable Unavailable THABET, MORRIS VP DELIVERY Unavailable Unavailable THABET, MORRIS VP DELIVERY Unavailable Unavailable THABET, MORRIS VP DELIVERY Unavailable Unavailable THABET, MORRIS VP DELIVERY Unavailable Unavailable THABET, MORRIS VP DELIVERY Unavailable Unavailable THABET, MORRIS VP DELIVERY Unavailable Unavailable Hamlet, D Abdi PA Unavailable [...] Hamlet, D Abdi PA Unavailable Unavailable ROHIT [id number], E LIGIA [id number] Unavailable Unavailab le ROHIT [id number], E LIGIA [id number] Unavailable Unavailab le ROHIT [id number], E LIGIA [id number] Unavailable Unavailab Annie Agudelo MD Unavailable Unavailable [...] Unavailable Ankit, E Rody MD Unavailable Unavailable nAkit, E Rody MD Unavailable Unavailable Ankit, E [...] T JOE MD Unavailable Unavailable OBEN, T JEO MD Unavailable Unavailable OBEN, T JOE MD [...] ailable Brown, Jam PA Unavailable Unavailable Brown, Jma PA Unavailable Unavailable Brown, Jam PA Unavailable [...] is protected by Article 27-F of the [facility] Public Health law. If you continue you may have access to information: Regarding HIV / AIDS; Provided by facilities licensed or operated by the [facility] Office of Mental Health; or Provided by the [facility] Office for People With Developmental Disabilities. If such information is present, then the following [facility] mandated warning applies: This information has been [...] law may result in a fine or mcc sentence or both. A general authorization for the release of medical or other information is NOT sufficient authorization for further disc losure. Allergies and Adverse Reactions Type Description Substance Reaction Status Data Source(s ) No Known Drug Allergies No Known Drug Allergies Health [facility] ENVIRONMENTAL LATEX LATEX RASH [facility] Family History Family Member Name Family Member Gender Family Member Status Date o f Status Description Data Source(s) Unknown Female Problem [facility] ([facility]) Encounters Encounter Providers Location Date Indications Data Source(s ) Outpatient Attender: Colt Garcia 11/13/2020 12:00:00 AM [facility] Outpatient Referrer: ALEXANDRA XIE NP 10/31/2020 12 :00:00 AM EST 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 [facility] 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 Outpatient Attender: Colt FritzA-ONCCACTR 10/23 12:00:00 AM EST - 10/23/2020 03:40:16 PM EST 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 [facility] 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 Outpatient Attender: Colt Garcia 10/22/2020 12:00:00 AM [facility] Outpatient Referrer: ALEXANDRA XIE NP 10/15/2020 12:00:00 AM [facility] Outpatient Attender: JOE BAIRD MDConsultant: Rody fraser MD 10/09/2020 09:40:00 AM EST - 10/09/2020 09:40:00 AM [facility] Outpatient Attender: JOE BAIRD MD Family Practice 10/09/2020 09:00:0 0 AM EST [facility] Outpatient Attender: ALEXANDRA XIE ANNETTE FritzA-ONCCACTR 09/18 12:00:00 AM EST - 09/27/2020 04:14:16 PM EST 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 [facility] 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 Outpatient Attender: Colt Garcia 09/24/2020 12:00:00 AM EST [facility] Outpatient Attender: Colt Huizar-ONCCACTR 09/03 12:00:00 AM EST - 09/03/2020 01:46:01 PM EST 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 [facility] 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 Outpatient Attender: Jennifer Monterroso PA-C 08/24/2020 1 1:12:00 AM EST CARDIOMYOPATHY,I42.9 [facility] CARDIOMYOPATHY,I42.9 Outpatient<td ID="encounterTypeDescripti onID1">followup</td><td>Abdi Hager</td><td>[facility], 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</content>, <content ID="encounterDiagnosisID1-7">Routine History and Physical Geriatric (80+ Yrs)</content></td> Attender: Abdi MATA [facility] 08/21/2020 12:41:00 PM EST - 08/21/2020 02:07:00 PM ES T Routine History and Physical Geriatric (80+ Yrs)Bundle Branch Block Right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NeuropathyHyponatremiaLung Neoplasm Malignant AdenocarcinomaCarotid Artery StenosisBenign Prostatic Hypertrophy [place] ([facility]) Routine History and Physical Geriatric ( 80+ Yrs) 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 Neuropathy Hyponatremia 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 Benign Prostatic Hypertrophy Outpatient<td ID="encounterTypeDescripti onID0"> Annual Wellness SUBSEQUENT visi t(> 1yr since prev.</td><td>Abdi Hong PA-C</td><td>[facility]</td><td>08/21/2020</td><td> 12:41PM</td><td>2:07PM</td><td><content ID="encounterDiagnosisID0-0">Routine History and Physical Geriatric (80+ Yrs)</content>, <content ID="encounterDiagnosisID0-1">Tobacco Use</content></td> Attender: Abdi MATA [facility] 08/21/2020 12:41:00 PM EST - 08/21/2020 02:07:00 PM EST Tobacco UseRoutine History and Physical Geriatric (80+ Yrs)Tobacco UseRoutine History and Physical Geriatric (80+ Yrs) [place] ([facility]) Tobacco Use Routine History and Physical Geriatric ( 80+ Yrs) Tobacco Use Routine History and Physical Geriatric ( 80+ Yrs) Outpatient Attender: ALEXANDRA Huizar-ONCCACTLiliana 07/20 12:00:00 AM EDT - 08/13/2020 03:34:15 PM EDT 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 [facility] 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 Outpatient Attender: Jennifer Monterroso PA-C [facility] 07/24/2020 02:30:00 PM EDT [facility] ([facility]) Outpatient Attender: ALEXANDRA Huizar-ONCCACTLiliana 10/2019 12:00:00 AM EDT - 07/19/2020 01:23:53 PM EDT 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 [facility] 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 Outpatient Attender: Colt Jose 07/17/2020 12:00:00 AM [facility] Outpatient Attender: Colt Chrisiano 07/17/2020 12:00:00 AM T [facility] Outpatient<td ID="encounterTypeDescripti onID2">electrocardiogram</td><td>Abdi Hong PA-C</td><td>[facility], [facility]</td><td>07/12/2020</td><td>10:31AM</td><td>11:16AM</td><td><content ID="encounterDiagnosisID2-0">Benign Prostatic Hypertrophy</content>, <content ID="encounterDiagnosisID2-1">Bundle Branch Block Right</content></td> Attender: Abdi MATA [facility], [facility] 07/12/2020 10:31:00 A EDT - 07/12/2020 11:16:12 AM EDT Bundle Branch Block RightBundle Branch B lock RightBundle Branch Block RightBundle Branch Block RightWorking Diagnosis of Visit For: Preoperative ExamHyponatremiaBenign Prostatic HypertrophyBenign Pro static HypertrophyBenign Prostatic HypertrophyBenign Prostatic HypertrophyBenign Prostatic HypertrophyBenign Prostatic Hypertrophy [place] ([facility]) Bundle Branch Block Right Bundle Branch [...] unspecified part of right bronchus or lung [facility] 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 Outpatient Referrer: ALEXANDRA XIE NP 07/10/2020 12:00:00 AM T [facility] Outpatient Attender: JOE BAIRD MDConsultant: Rody fraser MD 07/03/2020 09:28:10 AM EDT - 07/04/2020 08:14:00 AM EDT [facility] System Patient discharged. Outpatient Attender: Makenna Glass MS, RPA-CC onsultant: Rody Pham MD 06/30/2020 11:19:34 AM EDT - 07/02/2020 10:56:00 AM EDT Health System Patient discharged. Outpatient Attender: ALEXANDRA XIE NP 07A-ONCCACTR 12/2019 12:00:00 AM EDT - 06/21/2020 02:08:49 PM EDT 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 [facility] 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 Outpatient<td ID="encounterTypeDescripti onID3">Pre-op consult for surgery</td><td>Abdi Hong PA-C</td><td>[facility], [facility]</td><td>06/19/2020</td><td>10:58AM</td><td>11:26AM</td><td><content ID="encounterDiagnosisID3-0">Benign Prostatic Hypertrophy</content>, <content ID="encounterDiagnosisID3-1">Working Diagnosis of Visit For: Preoperative Exam</content>, <content ID="encounterDiagnosisID3-2">Hyponatremia</content></td> Attender: Abdi MATA [facility], [facility] 06/19/2020 10:58:00 A M EDT - 06/19/2020 [...] HypertrophyBenign Prostatic HypertrophyBenign Prostatic HypertrophyBenign Prostatic Hypertrophy [facility]) Working Diagnosis of Visit For: Preopera tive [...] Brenda Love/Meena/Walter/Jono ndl 06/11/2020 10:30:00 AM EDT [facility] ([facility], ) Outpatient Attender: JOE BAIRD MDConsultant: Rody fraser MD 06/05/2020 09:10:00 AM EDT - 06/05/2020 09:10:00 AM EDT Health System Outpatient Attender: ALEXANDRA QuintanaONCBIJAL 05/19 12:00:00 AM EDT - 05/31/2020 02:45:19 PM EDT 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 [facility] 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 Outpatient Attender: JOE BAIRD MDConsultant: Rody fraser MD 05/11/2020 08:30:00 AM EDT - 05/11/2020 11:49:00 AM EDT Health System Patient discharged. Outpatient Attender: ALEXANDRA Huizar-ONCCACTLiliana 04/19 12:00:00 AM EDT - 05/10/2020 02:25:18 PM EDT 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 [facility] 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 Outpatient Attender: Makenna Glass MS, RPA-CC onsultant: Rody Pham MD 05/07/2020 10:30:00 AM EDT - 05/07/2020 11:30:00 AM EDT Health System Patient discharged. Outpatient Attender: ALEXANDRA Huizar-ONCCACTR 11/2019 12:00:00 AM EDT - 04/19/2020 03:13:20 PM EDT Iron deficiency anemia, unspecified [facility] Iron deficiency anemia, unspecified Outpatient Attender: Makenna Turner i MS, RPA-CAttender: JOE BAIRD MDConsultant: Rody Pham MD 04/17/2020 10:58:00 AM EDT - 04/17/2020 10:58:00 AM EDT Health System Outpatient Attender: Brenda Love/Meena/Walter/Jono ndl 04/16/2020 11:00:00 AM EDT [facility] ([facility]) Outpatient Attender: ALEXANDRA FritzA-ONCCACTLiliana 03/19 12:00:00 AM EDT - 03/29/2020 01:19:16 PM EDT 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 [facility] 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 Outpatient Attender: ALEXANDRA XIE NP 03/29/2020 12:00:00 AM EDT [facility] Outpatient Referrer: ALEXANDRA XIE NP 03/26/2020 12 :00:00 AM EDT 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 [facility] 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 Outpatient Attender: JOE BAIRD MDConsultant: Rody fraser MD 03/20/2020 01:21:00 PM EDT - 03/20/2020 01:21:00 PM EDT Health System Outpatient Attender: ALEXANDRA FritzA-ONCCACTR 02/17 12:00:00 AM EDT - 03/08/2020 03:47:51 PM EDT 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 [facility] 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 Outpatient Attender: Brenda Love/Meena/Walter/Jono ndl 02/23/2020 01:30:00 PM EDT [facility] ([facility]) Outpatient Attender: [employer] 02/21/2020 12:00:00 AM EDT [facility] Outpatient Attender: ALEXANDRA XIE NPAttender: Colt Leonid Huizar-ONCCACTR 02/14/2020 12:00:00 AM EDT - 02/15/2020 08:32:44 AM EDT 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 [facility] 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 Outpatient<td ID="encounterTypeDescripti onID4">telephone conversation</td><td>Rody Pham MD</td><td>[facility], [facility]</td><td>02/10/2020</td><td>2:49PM</td><td>3:43PM</td><td><content ID="encounterDiagnosisID4-0">Hyponatremia</content>, <content ID="encounterDiagnosisID4-1">Large Intestine Neoplasm, Benign - Adenomatous Polyp</content>, <content ID="encounterDiagnosisID4-2">Lung Neoplasm Malignant Adenocarcinoma</content>, <content ID="encounterDiagnosisID4- 3">Osteopenia</content>, <content ID="encounterDiagnosisID4-4">Benign Prostatic Hypertrophy</content>, <content ID="encounterDiagnosisID4-5">Difficulty Breathing (Dyspnea)</content></td> Attender: Rody Pham MD [facility] 02/10/2020 02:49:00 PM EDT - 02/10/2020 03:43:55 [...] Intestine Neoplasm, Benign - Adenomatous Polyp [place] ([facility]) Difficulty Breathing (Dyspnea) Difficulty Breathing (Dyspnea) [...] part o f right bronchus or lung [facility] 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 Outpatient Attender: Colt Huizar-ONCCACTR 01/02 12:00:00 AM EDT - 01/03/2020 03:23:54 PM EDT 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 [facility] 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 Outpatient Referrer: Jam MATA 12/27/2019 12:00 :00 AM EDT 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 [facility] 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 Outpatient Referrer: Jam MATA 12/27/2019 12:00:00 AM EDT [facility] Outpatient Attender: Colt Huizar-ONCCACTR 12/13 12:00:00 AM EST - 12/13/2019 03:43:16 PM EST 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 [facility] 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 Outpatient<td ID="encounterTypeDescripti onID5">followup</td><td>Abdi Hager</td><td>[facility], [facility]</td><td>11/29/2019</td><td>12:29PM</td><td>1:10PM</td><td><content ID="encounterDiagnosisID5-0">Hyponatremia</content>, <content ID="encounterDiagnosisID5-1">Lung Neoplasm Malignant Adenocarcinoma</content></td> Attender: Abdi MATA [facility] 11/29/2019 12:29:00 PM EST - 11/29/2019 01:10:00 PM ES T HyponatremiaHyponatremiaHyponatremiaHyponatremiaHyponatremiaHyponatremiaHyponatr Neoplasm Malignant AdenocarcinomaLung Neoplasm Malignant AdenocarcinomaLung Neoplasm Malignant AdenocarcinomaLung Neoplasm Malignant AdenocarcinomaLung Neoplasm Malignant AdenocarcinomaLung Neoplasm Malignant AdenocarcinomaLung Neoplasm Malignant AdenocarcinomaLung Neoplasm Malignant AdenocarcinomaLung Neoplasm Malignant Adenocarcinoma [place] ([facility]) Hyponatremia Hyponatremia Hyponatremia Hyponatremia Hyponatremia Hyponatremia [...] part o f right bronchus or lung [facility] 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 Outpatient Attender: ALEXANDRA Huizar-ONCCACTR 06/2020 12:00:00 AM EST - 10/27/2019 01:59:26 PM EST 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 [facility] 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 Outpatient<td ID="encounterTypeDescripti onID6">Transitional Care Management HIGH complexity</td><td>Abdi Hong PA-C</td><td>[facility], [facility]</td><td>10/25/2019</td><td>12:12PM</td><td>1:30PM</td><td><content ID="encounterDiagnosisID6-0">Hyponatremia</content></td> Attender: Abdi MATA [facility] 10/25/2019 12:12:00 P M EST - 10/25/2019 01:30:00 PM EST HyponatremiaHyponatremiaHyponatremiaHyponatremiaHyponatremiaHyponatremiaHyponatr emiaHyponatremiaHyponatremiaHyponatremiaHyponatremia [place] ([facility]) Hyponatremia Hyponatremia Hyponatremia Hyponatremia Hyponatremia Hyponatremia Hyponatremia Hyponatremia Hyponatremia Hyponatremia Hyponatremia Outpatient<td ID="encounterTypeDescripti onID7">TCMNV phone call- NO CHARGE</td><td>Abdi Hong PA-C</td><td>[facility]</td><td>10/21/2019</td><td>08/09/2019 12:09PM</td><td>08/09/2019 11:59PM</td><td></td> Attender: Abdi MATA [facility] 10/21/2019 12:09:00 PM EST - 08/09/2019 11:59:00 PM EDT [place] ([facility]) Outpatient Attender: ALEXANDRA Huizar-ONCCACTR 11/2019 12:00:00 AM EST - 10/20/2019 11:37:00 AM EST 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 [facility] 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 Outpatient Attender: ALEXANDRA XIE NP 10/20/2019 12:00:00 AM [facility] Outpatient Attender: ALEXANDRA XIE NP 10/20/2019 12:00:00 AM [facility] Inpatient Attender: VINCENT ISSAConsultant: Rody wiggins MD 10/13/2019 08:00:00 PM EST - 10/19/2019 02:15:00 PM EST Health System Patient discharged. Inpatient Attender: Adelina MALHOTRA ttender: LIGIA BEE [id number]: PARVEEN OLGUIN MDAdmitter: Adelina Garcia DOReferrer: Adelina Garcia DOConsultant: LIGIA BEE [id number] 10/08/2019 12:00:00 AM EST - 10/13/2019 06:04:00 PM EST Cerebral infarction, unspecified [facility] Cerebral infarction, unspecified Patient discharged. Outpatient Attender: ALEXANDRA XIE NP [id number] 02/2019 12:00:00 AM EST - 09/22/2019 02:18:50 PM EST 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 [facility] 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 Outpatient Referrer: ALEXANDRA XIE NP 09/12/2019 12 :00:00 AM EST 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 [facility] 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 Immunizations Vaccine Date Status Description Data Source(s) Influenza, high dose seasonal 06/07/2020 12:12:00 PM EDT complet ed Fluzone High Dose 5 06/07/2020 Complete (Reported) Patient [facility] [place] ([facility]) Influenza Quad High Dose IM Pres Free >=65YO 06/07/2020 12:0 0:00 AM EDT completed Influenza Quad High Dose IM Pres Free >=65YO 06/07/2020 [facility] This CVX code allows reporting of a vacc ination when formulation is unknown (for example, when recording a Influenza vaccination when noted on a vaccination card) 06/07/2020 12:00:00 AM EDT completed Influenza, Unspecified 06/07/[address] [place] [address] Pneumococcal conjugate PCV 13 06/07/2020 12:00:00 AM EDT complet ed Pneumococcal Conjugate PCV13 06/07/2020, 08/16/2015 [facility] Medications Medication Brand Name Start Date Product Form Dose Route Admi nistrative Instructions Pharmacy Instructions Status Indications Reaction Description Data Source(s) iohexol (OMNIPAQUE) 300 MG/ML contrast injection 100 mL [id number] 10/31/2020 01:30:00 PM EST 100 mL Intravenous completed 100 mL, Intravenous, 1 TIME IMAGING, Thu10/31/20 at 1330, For 1 dose, Imaging Protocol [facility] Medication administered onsite iohexol (OMNIPAQUE) 240 MG/ML contrast 20 mL [id number] 01:15:00 PM EST 20 mL Oral completed 20 mL, Oral, 1 TIME IMAGING, Thu10/31/20 at 1315, For 1 dose, Imaging Protocol
Dilute before administering
[facility] Medication administered onsite iohexol (OMNIPAQUE) 240 MG/ML contrast 20 mL [id number] 01:05:05 PM EST 20 mL Oral active 20 mL, Oral, IMG once PRN, Contrast, Starting Thu10/31/20 at 1305, For 1 day, Imaging Protocol
Dilute before administering
[facility] Medication administered onsite pembrolizumab (KEYTRUDA) 200 mg in sodium chloride 0.9 % 50 mL chemo infusion 10/23/2020 02:00:00 PM EST 200 mg Intravenous c ompleted Primary adenocarcinoma of right lung 200 mg, Intravenous, Admi nister over 30 Minutes, Once, 10/23/20 at 1400, For 1 dose [facility] Primary adenocarcinoma of right lung Medication administered onsite pembrolizumab (KEYTRUDA) 200 mg in sodium chloride 0.9 % 50 mL chemo infusion 09/27/2020 03:00:00 PM EST 200 mg Intravenous c ompleted Primary adenocarcinoma of right lung 200 mg, Intravenous, Admi nister over 30 Minutes, Once, Barbara 09/27/20 at 1500, For 1 dose [facility] Primary adenocarcinoma of right lung Medication administered onsite pembrolizumab (KEYTRUDA) 200 mg in sodium chloride 0.9 % 50 mL chemo infusion 09/03/2020 12:15:00 PM EST 200 mg Intravenous c ompleted Primary adenocarcinoma of right lung 200 mg, Intravenous, Admi nister over 30 Minutes, Once, 09/03/20 at 1215, For 1 dose [facility] Primary adenocarcinoma of right lung Medication administered onsite pembrolizumab (KEYTRUDA) 200 mg in sodium chloride 0.9 % 50 mL chemo infusion 08/13/2020 02:00:00 PM EDT 200 mg Intravenous c ompleted Primary adenocarcinoma of right lung 200 mg, Intravenous, Admi nister over 30 Minutes, Once, Thu08/13/20 at 1400, For 1 dose [facility] Primary adenocarcinoma of right lung Medication administered [...] Barbara 07/19/20 at 1200, For 1 dose [facility] Primary adenocarcinoma of right lung Medication administered onsite iohexol (OMNIPAQUE) 240 MG/ML contrast 20 mL [id number] 12:30:00 PM EDT 20 mL Oral completed 20 mL, Oral, 1 TIME IMAGING, 07/10/20 at 1230, For 1 dose, Imaging Protocol
Dilute before administering
[facility] Medication administered onsite iohexol (OMNIPAQUE) 300 MG/ML contrast injection 100 mL 1775 1107/10/2020 12:30:00 PM EDT 100 mL Intravenous completed 100 mL, Intravenous, 1 TIME IMAGING, 07/10/20 at 1230, For 1 dose, Imaging Protocol [facility] Medication administered onsite iohexol (OMNIPAQUE) 240 MG/ML contrast 20 mL [id number] 12:20:37 PM EDT 20 mL Oral active 20 mL, Oral, IMG once PRN, Contrast, Starting 07/10/20 at 1220, For 1 day, Imaging Protocol
Dilute before administering
[facility] Medication administered onsite Levetiracetam 500 MG Oral Tablet levETIRAcetam 500 MG Oral Tablet levETIRAcetam 500 MG Oral Tablet 07/04/2020 12:00:00 AM EDT active levetiracetam 500 MG Oral Tablet [place] ([facility]) pembrolizumab (KEYTRUDA) 200 mg in sodium chloride 0.9 % 50 mL chemo infusion 06/21/2020 01:15:00 PM EDT 200 mg Intravenous c ompleted Primary adenocarcinoma of right lung 200 mg, Intravenous, Admi nister over 30 Minutes, Once, Barbara 06/21/20 at 1315, For 1 dose [facility] Primary adenocarcinoma of right lung Medication administered onsite Famotidine 40 MG Oral Tablet Famotidine 40 MG Oral Tablet 12:00:00 AM EDT active famotidine 40 MG Oral Tablet [place] ([facility]) 30 ACTUAT umeclidinium 0.0625 MG/ACTUAT / vilanterol 0.025 MG/ACTUAT Dry Powder Inhaler [Anoro] Anoro Ellipta 06/11/2020 12:00:00 AM EDT RESPIRA TORY completed [facility] ([facility]) pembrolizumab (KEYTRUDA) 200 mg in sodium chloride 0.9 % 50 mL chemo infusion 05/31/2020 01:30:00 PM EDT 200 mg Intravenous c ompleted Primary adenocarcinoma of right lung 200 mg, Intravenous, Admi nister over 30 Minutes, Once, Barbara 05/31/20 at 1330, For 1 dose [facility] Primary adenocarcinoma of right lung Medication administered onsite Bevespi Aerosphere Bevespi Aerosphere 05/16/2020 12:00:00 AM EDT ORAL completed [facility] ([facility]) pembrolizumab (KEYTRUDA) 200 mg in sodium chloride 0.9 % 50 mL chemo infusion 05/10/2020 01:00:00 PM EDT 200 mg Intravenous c ompleted Primary adenocarcinoma of right lung 200 mg, Intravenous, Admi nister over 30 Minutes, Once, Barbara 05/10/20 at 1300, For 1 dose [facility] Primary adenocarcinoma of right lung Medication administered onsite pembrolizumab (KEYTRUDA) 200 mg in sodium chloride 0.9 % 50 mL chemo infusion 04/19/2020 01:30:00 PM EDT 200 mg Intravenous c ompleted Primary adenocarcinoma of right lung 200 mg, Intravenous, Admi nister over 30 Minutes, Once, Barbara 04/19/20 at 1330, For 1 dose [facility] Primary adenocarcinoma of right lung Medication administered onsite Yupelri Yupelri 04/16/2020 12:00:00 AM EDT complet ed [facility] ([facility], ) Yupelri Yupelri 04/16/2020 12:00:00 AM EDT complet ed [facility] ([facility], ) Sodium Chloride 1000 MG Oral Tablet Sodium Chloride 1 GM Oral Tablet Sodium Chloride 1 GM Oral Tablet 04/02/2020 12:00:00 AM EDT 4 active sodium chloride 1000 MG Oral Tablet [place] ([facility]) pembrolizumab (KEYTRUDA) 200 mg in sodium chloride 0.9 % 50 mL chemo infusion 03/29/2020 12:00:00 PM EDT 200 mg Intravenous c ompleted Primary adenocarcinoma of right lung 200 mg, Intravenous, Admi nister over 30 Minutes, Once, Barbara 03/29/20 at 1200, For 1 dose [facility] Primary adenocarcinoma of right lung Medication administered onsite pembrolizumab (KEYTRUDA) 200 mg in sodium chloride 0.9 % 50 mL chemo infusion 03/08/2020 02:15:00 PM EDT 200 mg Intravenous c ompleted Primary adenocarcinoma of right lung 200 mg, Intravenous, Admi nister over 30 Minutes, Once, Barbara 03/08/20 at 1415, For 1 dose [facility] Primary adenocarcinoma of right lung Medication administered onsite Flonase Allergy Relief 50 MCG/ACT Nasal Suspension Carolyn nase Allergy Relief 50 MCG/ACT Nasal Suspension 03/07/2020 12:00:00 AM EDT active fluticasone propionate 0.05 MG/ACTUAT Metered Dose Nasal Husser [Flonase] [place] ([facility]) Flonase Allergy Relief 50 MCG/ACT Nasal Suspension Carolyn nase Allergy Relief 50 MCG/ACT Nasal Suspension 02/29/2020 12:00:00 AM EDT aborted fluticasone propionate 0.05 MG/ACTUAT Metered Dose Nasal Husser [Flonase] [place] ([facility]) Albuterol 0.833 MG/ML / Ipratropium [place] 0.167 MG/M L Inhalant Solution Ipratropium [place]/Albuterol Sulfate 02/27/2020 12:00:00 AM EDT completed [facility] ([facility] ) Stiolto Respimat Stiolto Respimat 02/27/2020 12:00:00 AM EDT RESPIRATORY completed [facility] ([facility], ) Albuterol 0.833 MG/ML / Ipratropium [place] 0.167 MG/M L Inhalant Solution Ipratropium [place]/Albuterol Sulfate 02/27/2020 12:00:00 AM EDT active [facility] ([facility] ) 30 ACTUAT umeclidinium 0.0625 MG/ACTUAT / vilanterol 0.025 MG/ACTUAT Dry Powder Inhaler [Anoro] Anoro Ellipta 02/23/2020 12:00:00 AM EDT RESPIRA TORY completed [facility] ([facility], ) pembrolizumab (KEYTRUDA) 200 mg in sodium chloride 0.9 % 50 mL chemo infusion 02/14/2020 02:00:00 PM EDT 200 mg Intravenous c ompleted Primary adenocarcinoma of right lung 200 mg, Intravenous, Admi nister over 30 Minutes, Once, e 02/14/20 at 1400, For 1 dose [facility] Primary adenocarcinoma of right lung Medication administered onsite ferric carboxymaltose (INJECTAFER) 750 m g in sodium chloride 0.9 % 250 mL infusion 02/14/2020 01:45:00 PM EDT 750 mg Intravenous completed Iron deficiency anemia, unspecified iron deficiency anemia type 750 mg, Intravenous, Administer over 16 Minutes
Once, e 02/14/20 at 1345, For 1 dose [facility] Iron deficiency anemia, unspecified iron deficiency anemia type Medication administered onsite gabapentin 100 MG Oral Capsule Gabapentin 100 MG Oral Capsule Gabapentin 100 MG Oral Capsule 02/10/2020 12:00:00 AM EDT activ e gabapentin 100 MG Oral Capsule [place] ([facility]) pembrolizumab (KEYTRUDA) 200 mg in sodium chloride 0.9 % 50 mL chemo infusion 01/24/2020 02:30:00 PM EDT 200 mg Intravenous c ompleted Primary adenocarcinoma of right lung 200 mg, Intravenous, Admi nister over 30 Minutes, Once, 01/24/20 at 1430, For 1 dose [facility] Primary adenocarcinoma of right lung Medication administered onsite Flonase Allergy Relief 50 MCG/ACT Nasal Suspension Carolyn nase Allergy Relief 50 MCG/ACT Nasal Suspension 01/20/2020 12:00:00 AM EDT aborted fluticasone propionate 0.05 MG/ACTUAT Metered Dose Nasal Husser [Flonase] [facility]) Loratadine 10 MG Oral Tablet Loratadine 10 MG Oral Tablet 12:00:00 AM EDT 1 active loratadine 10 MG Oral Tablet [facility]) pembrolizumab (KEYTRUDA) 200 mg in sodium chloride 0.9 % 50 mL chemo infusion 01/03/2020 01:45:00 PM EDT 200 mg Intravenous c ompleted Primary adenocarcinoma of right lung 200 mg, Intravenous, Admi nister over 30 Minutes, Once, 01/03/20 at 1345, For 1 dose [facility] Primary adenocarcinoma of right lung Medication administered onsite iohexol (OMNIPAQUE) 300 MG/ML contrast injection 50 mL [id number] 12/27/2019 02:45:00 PM EDT 50 mL Given by IV completed 50 mL, Given by IV, 1 TIME IMAGING, 12/27/19 at 1445, For 1 dose [facility] Medication administered onsite Levetiracetam 500 MG Oral Tablet levETIRAcetam 500 MG Oral Tablet levETIRAcetam 500 MG Oral Tablet 12/20/2019 12:00:00 AM EST 1 aborted levetiracetam 500 MG Oral Tablet [place] ([facility]) pembrolizumab (KEYTRUDA) 200 mg in sodium chloride 0.9 % 50 mL chemo infusion 12/13/2019 02:30:00 PM EST 200 mg Intravenous c ompleted Primary adenocarcinoma of right lung 200 mg, Intravenous, Admi nister over 30 Minutes, Once, 12/13/19 at 1430, For 1 dose [facility] Primary adenocarcinoma of right lung Medication administered onsite Finasteride 5 MG Oral Tablet Finasteride 5 MG Oral Tablet 12:00:00 AM EST 1 active finasteride 5 MG Oral Tablet [facility]) Sodium Chloride 1000 MG Oral Tablet Sodium Chloride 1 GM Oral Tablet Sodium Chloride 1 GM Oral Tablet 11/29/2019 12:00:00 AM EST 4 aborted sodium chloride 1000 MG Oral Tablet [place] ([facility]) Tamsulosin hydrochloride 0.4 MG Oral Cap lita [Flomax] Flomax 0.4 MG Oral Capsule Flomax 0.4 MG Oral Capsule 11/29/2019 12:00:00 AM EST 1 active tamsulosin hydrochloride 0.4 MG Oral Capsule [Flomax] [facility]) pembrolizumab (KEYTRUDA) 200 mg in sodium chloride 0.9 % 50 mL chemo infusion 11/17/2019 01:30:00 PM EST 200 mg Intravenous c ompleted Primary adenocarcinoma of right lung 200 mg, Intravenous, Admi nister over 30 Minutes, Once, Barbara 11/17/19 at 1330, For 1 dose [facility] Primary adenocarcinoma of right lung Medication administered onsite Sodium Chloride 1000 MG Oral Tablet Sodium Chloride 1 GM Oral Tablet Sodium Chloride 1 GM Oral Tablet 11/15/2019 12:00:00 AM EST 4 aborted sodium chloride 1000 MG Oral Tablet [facility]) Levetiracetam 500 MG Oral Tablet levETIRAcetam 500 MG Oral Tablet levETIRAcetam 500 MG Oral Tablet 11/10/2019 12:00:00 AM EST 1 aborted levetiracetam 500 MG Oral Tablet [facility]) pembrolizumab (KEYTRUDA) 200 mg in sodium chloride 0.9 % 50 mL chemo infusion 10/27/2019 12:45:00 PM EST 200 mg Intravenous c ompleted Primary adenocarcinoma of right lung 200 mg, Intravenous, Admi nister over 30 Minutes, Once, Barbara 10/27/19 at 1245, For 1 dose [facility] Primary adenocarcinoma of right lung Medication administered onsite Sodium Chloride 1000 MG Oral Tablet Sodium Chloride 1 GM Oral Tablet Sodium Chloride 1 GM Oral Tablet 10/25/2019 12:00:00 AM EST aborted sodium chloride 1000 MG Oral Tablet [facility]) Oseltamivir 75 MG Oral Capsule [Tamiflu] Tamiflu 75 MG Oral Capsule Tamiflu 75 MG Oral Capsule 10/25/2019 12:00:00 AM EST co mpleted oseltamivir 75 MG Oral Capsule [Tamiflu] [place] ([facility]) pantoprazole 40 MG Delayed Release Oral Tablet pantoprazole (PROTONIX) EC tablet 40 mg pantoprazole (PROTONIX) EC tablet 40 mg 10/14/2019 07:30:[address] 40 mg Oral active 40 mg, Ora l, Before Breakfast, First dose on Thu10/14/19 at 0730, For 28 days
Do not crush or chew
[facility] Medication administered onsite Levetiracetam 500 MG Oral Tablet Levetiracetam 10/13/2019 12:00:00 AM EST ORAL active [facility] ([facility]) Sodium Chloride 1000 MG Oral Tablet Sodium Chloride 1 GM Oral Tablet Sodium Chloride 1 GM Oral Tablet 10/13/2019 12:00:00 AM EST 2 g Oral active Take 2 tablets by mouth Three times daily with meals for 5 days [facility] Levetiracetam 500 MG Oral Tablet levETIRAcetam 500 MG Oral Tablet (KEPPRA) levETIRAcetam 500 MG Oral Tablet (KEPPRA) 10/13/2019 12:00:00 AM EST 500 mg Oral active Take 1 tablet by aileen th Two Times Daily [facility] Azithromycin 250 MG Oral Tablet azithromycin (ZITHROMA X) tablet 500 mg azithromycin (ZITHROMAX) tablet 500 mg 10/12/2019 09:00:00 AM EST 5 00 mg Oral active 500 mg, Oral, D aily Standard, First dose on Thu10/12/19 at 0900, For 3 days [facility] Medication administered onsite potassium chloride (K-DUR,KLOR-CON) dissolvable tablet 40 mE q [id number] 10/12/2019 05:00:00 AM EST 40 meq Oral completed 40 mEq, Oral, 2 Times Daily, First dose on Thu10/12/19 at 0500, For 2 doses
May be dissolved in water for patients with a G-Tube or unable to swallow. If concern for clogging G-Tube, may contact Pharmacy to switch formulation to a powder packet.
[facility] Medication administered onsite pantoprazole (PROTONIX) 2 mg/mL oral suspension 40 mg 10/11/2019 07:30:00 AM EST 40 mg Oral aborted 40 mg, O ral, Before Breakfast, First dose on Thu10/11/19 at 0730, For 30 days [facility] Medication administered onsite 0.4 ML Enoxaparin sodium 100 MG/ML Prefi lled Syringe enoxaparin sodium (LOVENOX) injection 40 mg enoxaparin sodium (LOVENOX) injection 40 mg 10/10/2019 09:00:00 AM EST 40 mg Subcutaneous active 40 mg, Subcutaneous, Daily Standard, First dose on Thu10/10/19 at 0900, For 30 days [facility] Medication administered onsite Ondansetron 4 MG Disintegrating Oral Tab let ondansetron (ZOFRAN-ODT) disintegrating tablet 4 mg ondansetron (ZOFRAN-ODT) disintegrating tablet 4 mg 10/10/2019 08:30:21 AM EST 4 mg Oral active 4 mg, Oral, Every 8 hours PRN, Nausea, Vomiting, Starting Thu10/10/19 at 0830, For 30 days
Dissolve on tongue.
[facility] Medication administered onsite Sodium Chloride 1000 MG Oral Tablet sodium chloride ta blet 2 g sodium chloride tablet 2 g 10/10/2019 08:00:00 AM EST 2 g Oral active 2 g, Oral, Three Times Daily-With Meals, First dose (after last modification) on Thu10/10/19 at 0800, For 88 doses [facility] Medication administered onsite Levetiracetam 500 MG Oral Tablet levETIRAcetam (KEPPRA ) tablet 500 mg levETIRAcetam (KEPPRA) tablet 500 mg 10/09/2019 01:15:00 PM EST 500 m g Oral active 500 mg, Oral, 2 Times Daily, First dose on 10/09/19 at 1315, For 30 days [facility] Medication administered onsite Sodium Chloride 1000 MG Oral Tablet sodium chloride ta blet 1 g sodium chloride tablet 1 g 10/09/2019 01:15:00 PM EST 1 g Oral aborted 1 g, Oral, Three Times Daily-With Meals, First dose on 10/09/19 at 1315, For 30 days [facility] Medication administered onsite Tamsulosin hydrochloride 0.4 MG Oral Capsule tamsulosi n (FLOMAX) capsule 0.4 mg tamsulosin (FLOMAX) capsule 0.4 mg 10/09/2019 09:00:00 AM EST 0.4 mg Oral active 0.4 mg, Oral, Daily Standard, First dose on 10/09/19 at 0900, For 30 days
Swallow whole. Do not crush, chew or open.
[facility] Medication administered onsite atorvastatin 40 MG Oral Tablet atorvastatin (LIPITOR) tablet 40 mg atorvastatin (LIPITOR) tablet 40 mg 10/08/2019 09:00:00 PM EST 40 mg Oral active 40 mg, Oral, Every evening, First dose on 10/08/19 at 2100, For 30 days [facility] Medication administered onsite 1 ML Lorazepam 2 MG/ML Injection LORazepam (ATIVAN) in jection 1 mg LORazepam (ATIVAN) injection 1 mg 10/08/2019 07:00:00 PM EST 1 mg Intraveno us completed 1 mg, Intravenous, Once, Sat at 1900, For 1 dose [facility] Medication administered onsite Ceftriaxone 1000 MG Injection cefTRIAXone (ROCEPHIN) i nfusion 1 g (premix) cefTRIAXone (ROCEPHIN) infusion 1 g (premix) 10/08/2019 10:00:00 AM EST 1 g Intravenous aborted 1 g, Intraven ous, at 100 mL/hr, Every 24 hours, First dose on 10/08/19 at 1000, For 7 days
Discouraged Uses: Empiric treatment of post-surgical meningitis (ceftazidime preferred)
[facility] Medication administered onsite azithromycin (ZITHROMAX) 500 mg in sodium chloride 0.9 % 250 mL (2 mg/mL) IVPB 10/08/2019 10:00:00 AM EST 500 mg Intravenous aborte d 500 mg, Intravenous, at 250 mL/hr, Every 24 hours, First dose on 10/08/19 at 1000, For 5 days [facility] Medication administered onsite NaCl infusion 0.9 % [id number] 10/08/2019 09:30:00 AM EST Intravenous aborted at 75 mL/hr, Intrave nous, Continuous, Starting 10/08/19 at 0930, For 30 days [facility] Medication administered onsite pantoprazole 4 MG/ML Injectable Solution pantoprazole (PROTONIX) injection 40 mg pantoprazole (PROTONIX) injection 40 mg 10/08/2019 09:00:00 AM EST 40 mg Intravenous aborted 40 mg, Intrav enous, Daily Standard, First dose on 10/08/19 at 0900, For 30 days [facility] Medication administered onsite sodium chloride 0.9 % bolus 500 mL [id number] 10/08/2019 06:00:00 AM EST 500 mL Intravenous completed 500 mL, Intravenous, Once, 10/08/19 at 0600, For 1 dose [facility] Medication administered onsite lidocaine (XYLOCAINE) 2 % urojet 10 mL [id number] 03:15:00 AM EST 10 mL Urethral completed 10 mL, Urethr al, Once, 10/08/19 at 0315, For 1 dose [facility] Medication administered onsite 4 ML Labetalol hydrochloride 5 MG/ML [place] labetalol (NORMODYNE,TRANDATE) injection 20 mg labetalol (NORMODYNE,TRANDATE) injection 20 mg 019 02:15:00 AM EST 20 mg Intravenous completed 20 mg, Intravenous, Once, 10/08/19 at 0215, For 1 dose [facility] Medication administered onsite sodium chloride infusion 0.9 % [id number] 10/08/2019 01:45:00 AM ES T 50 mL Intravenous completed Intravenous, Once, 10/08/19 at 0145, For 1 dose
After completion of Alteplase flush line with 50 ml NS at the same rate as the Alteplase infusion.
[facility] Medication administered onsite sodium chloride 0.9 % bolus 500 mL [id number] 09/22/2019 12:15:00 PM EST 500 mL Intravenous completed Hyponatremia 500 m L, Intravenous, Once, Barbara 09/22/19 at 1215, For 1 dose
500cc over 1 hour
[facility] Hyponatremia Medication administered onsite pembrolizumab (KEYTRUDA) 200 mg in sodium chloride 0.9 % 50 mL chemo infusion 09/22/2019 12:00:00 PM EST 200 mg Intravenous c ompleted Primary adenocarcinoma of right lung 200 mg, Intravenous, Admi nister over 30 Minutes, Once, Barbara 09/22/19 at 1200, For 1 dose [facility] Primary adenocarcinoma of right lung Medication administered onsite iohexol (OMNIPAQUE) 240 MG/ML contrast 20 mL [id number] 03:30:00 PM EST 20 mL Oral completed 20 mL, Oral, 1 TIME IMAGING, Thu09/12/19 at 1530, For 1 dose, Imaging Protocol
Dilute before administering
[facility] Medication administered onsite iohexol (OMNIPAQUE) 300 MG/ML contrast injection 100 mL [id number] 09/12/2019 03:30:00 PM EST 100 mL Intravenous completed 100 mL, Intravenous, 1 TIME IMAGING, Thu09/12/19 at 1530, For 1 dose, Imaging Protocol [facility] Medication administered onsite iohexol (OMNIPAQUE) 240 MG/ML contrast 20 mL [id number] 03:15:27 PM EST 20 mL Oral active 20 mL, Oral, IMG once PRN, Contrast, Starting Thu09/12/19 at 1515, For 1 day, Imaging Protocol
Dilute before administering
[facility] Medication administered onsite Sucralfate 1000 MG Oral Tablet Sucralfate 1GM Oral Tab let Sucralfate 1GM Oral Tablet 09/09/2019 12:00:00 AM EST active sucralfate 1000 MG Oral Tablet [place] ([facility]) Loratadine 10 MG Oral Tablet Loratadine 10MG Oral Tabl et Loratadine 10MG Oral Tablet 08/17/2019 12:00:00 AM EDT 1 aborted loratadine 10 MG Oral Tablet [place] ([facility]) 200 ACTUAT Albuterol 0.09 MG/ACTUAT Mete red Dose Inhaler [Ventolin] Ventolin HFA 108 (90 Base)MCG/ACT Inhalation Aerosol Solution Ventolin HFA 108 (90 Base)MCG/ACT Inhalation Aerosol Solution 08/01/2019 12:00:00 AM EDT completed [id number] 200 ACTUAT albuterol 0.09 MG/ACTUAT Metered Dose Inhaler [Ventolin] [place] ([facility]) Tamsulosin hydrochloride 0.4 MG Oral Capsule [Flomax] Flomax 0.4MG Oral Capsule Flomax 0.4MG Oral Capsule 07/04/2019 12:00:00 AM EDT 1 aborted tamsulosin hydrochloride 0.4 MG Oral Capsule [Flomax] [place] ([facility]) gabapentin 100 MG Oral Capsule Gabapentin 100MG Oral C apsule Gabapentin 100MG Oral Capsule 03/08/2019 12:00:00 AM EDT abort ed gabapentin 100 MG Oral Capsule [place] ([facility]) Finasteride 5 MG Oral Tablet Finasteride 5MG Oral Tabl et Finasteride 5MG Oral Tablet 02/08/2019 12:00:00 AM EDT 1 aborted finasteride 5 MG Oral Tablet [place] ([facility]) Ranitidine 150 MG Oral Tablet ranitidine (ZANTAC) 150 MG tablet ranitidine (ZANTAC) 150 MG tablet 02/08/2019 12:00:00 AM EDT aborted TAKE 1 TABLET BY MOUTH TWICE A DAY NEEDED [facility] Flonase Allergy Relief 50MCG/ACT Nasal Suspension Flon ase Allergy Relief 50MCG/ACT Nasal Suspension 11/17/2018 12:00:00 AM EST aborted fluticasone propionate 0.05 MG/ACTUAT Metered Dose Nasal Husser [Flonase] [place] ([facility]) ALPHA LIPOIC ACID PO 250 mg Oral aborted Take 250 mg by mouth [facility] Insurance Providers Payer name Policy type / Coverage type Policy ID Covered democrat ID Covered democrat's relationship to [place] Policy [place] Plan Information MEDICARE [id number] SP [id number] [id number] [employer] OPTIONS [id number] SP [id number] [facility] U [id number] Self [id number] MEDICARE A [id number] Self [id number] V54 [employer] [place] [id number] 18 [id number] MEDICARE PART A [facility] [id number] 18 [id number] Medicare Part B of [facility] Other 0 Se lf 0 Medicare Part B of [facility] Other 0 Se lf 0 Medicare Part B of [facility] Other 0 Se lf 0 Medicare Part B of [facility] Other 0 Se lf 0 Medicare Part B of [facility] Other 0 Se lf 0 Medicare Part B of [facility] Other 0 Se lf 0 [employer] OPTIONS -O/P [id number] 18 [id number] MEDICARE PART A -O/P [id number] 18 [id number] Medicare Part B of [facility] 0 Se lf 0 AARP U [id number] Self [id number] Medicare Part B of [facility] 0 Se lf 0 Medicare Part B of [facility] 0 Se lf 0 Medicare Part B of [facility] 0 Se lf 0 Medicare Part B of [facility] 0 Se lf 0 MEDICARE -SWING BED [id number] 18 [id number] [employer] HE[employer] CARE OPTIONS -O [id number] 18 [id number] AARP U [id number] Self [id number] Medicare Part B of [facility] 0 Se lf 0 Medicare Part B of [facility] 0 Se lf 0 MEDICARE [id number] SP [id number] A Medicare Part B of [facility] 0 Se lf 0 AARP U [id number] Self [id number] AARP U [id number] Self [id number] Medicare Part B of [facility] 0 Se lf 0 MEDICARE C [id number] S [id number] AARP O [id number] S [id number] Medicare Part B of [facility] 0 Se lf 0 Medicare Part B of [facility] 0 Se lf 0 MEDICARE C [id number] S [id number] A Medicare Part B of [facility] 0 Se lf 0 Medicare Part B of [facility] 0 Se lf 0 Medicare Part B of [facility] 0 Se lf 0 Medicare Part B of [facility] 0 Se lf 0 Medicare Part B of [facility] 0 Se lf 0 AARP HE[employer] CARE OPTIONS [id number] SP [id number] MEDICARE [id number] SP [id number] A [facility] Options Medigap Part B Self Medicare [place] Medigap Part B Self BS [place] [employer] Family Dependent AARP HEALTH CARE OPTIONS [id number] SP [id number] MEDICARE A [id number] Self [id number] A MEDICARE OUTPATIENT M [id number] S [id number] AARP O [id number] S [id number] Problems, Conditions, and Diagnoses Code Display Name Description Problem Type Effective Dates Data Source(s) 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 Branch Block Right Pr oblem 07/18/2020 12:45:00 PM EDT [place] ([facility]) 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 Branch Block Right Pr oblem 07/18/2020 12:45:00 PM EDT [place] ([facility]) 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 Branch Block Right Pr oblem 07/18/2020 12:45:00 PM EDT [place] ([facility]) 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 Branch Block Right Pr oblem 07/18/2020 12:45:00 PM EDT [place] ([facility]) [id number] Difficulty passing urine Difficulty passing urine Prob sergio 04/17/2020 12:00:00 AM EDT [facility]) 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 Problem 02/14/2016 12:00:00 AM EDT - 08/21/2020 12:00:00 AM [facility]) 695.3 Rosacea Rosacea Problem 08/16/2015 12:0 0:00 AM EDT - 08/21/2020 12:00:00 AM [facility]) 472.0 Rhinitis Rhinitis Problem 08/16/2015 12:0 0:00 AM EDT - 08/21/2020 12:00:00 AM [facility]) 274.9 Gout Gout Problem 08/16/2015 12:00:00 AM ED T - 08/21/2020 12:00:00 AM [facility]) Z86.39 Personal history of other endocrine, nut ritional and metabolic disease Personal history of other endocrine, nutritional and metabolic disease Diagnosis 09/27/2020 12:47:26 PM [facility] R53.83 Other fatigue Other fatigue Diagnosis 07/19/2020 10:51:20 AM [facility] R99 Ill-defined and unknown cause of mortali ty Ill-defined and unknown cause of mortality Diagnosis 07/04/2020 08:14:00 AM [facility] N401 Benign prostatic hyperplasia with lower urinary tract symptoms Benign prostatic hyperplasia with lower urinary tract symptoms Diagnosis 06/05/2020 09:10:[facility] E16.2 Hypoglycemia, unspecified Hypoglycemia, unspecified Di agnosis 05/31/2020 12:05:56 PM [facility] N3289 Other specified disorders of bladder Other speci fied disorders of bladder Diagnosis 05/11/2020 08:30:00 AM [facility] [id number] Other difficulties with micturition Other diffic ulties with micturition Diagnosis 05/11/2020 08:30:00 AM [facility] Z1159 Encounter for screening for other viral diseases Encounter for screening for other viral diseases Diagnosis 05/07/2020 10:30:00 AM [facility] D50.9 Iron deficiency anemia, unspecified Iron deficie ncy anemia, unspecified Diagnosis 04/19/2020 12:00:12 PM [facility] D64.9 Anemia, unspecified Anemia, unspecified Diagnosis 0 01/24/2020 01:06:18 PM [facility] Z8501 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 Diagnosis 10/13/2019 08:00:00 PM [facility] E559 Vitamin D deficiency, unspecified Vitamin D defi ciency, unspecified Diagnosis 10/13/2019 08:00:00 PM [facility] N400 Benign prostatic hyperplasia without low er urinary tract symptoms Benign prostatic hyperplasia without lower urinary tract symptoms Diagnosis 10/13/2019 08:00:00 PM [facility] R569 Unspecified convulsions Unspecified convulsions Diagno sis 10/13/2019 08:00:00 PM [facility] [id number] Personal history of nicotine dependence Personal history of nicotine dependence Diagnosis 10/13/2019 08:00:00 PM [facility] E8342 Hypomagnesemia Hypomagnesemia Diagnosis 10/13/2019 08:00: 00 PM [facility] 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 Diagnosis 10/13/2019 08:00:00 PM [facility] E871 Hypo-osmolality and hyponatremia Hypo-osmolality and hyponatremia Diagnosis 10/13/2019 08:00:00 PM [facility] M6281 Muscle weakness (generalized) Muscle weakness (general ized) Diagnosis 10/13/2019 08:00:00 PM [facility] I63.9 Cerebral infarction, unspecified Cerebral infarc tion, unspecified Diagnosis 10/11/2019 09:20:04 AM [facility] r/o stroke r/o stroke Diagnosis 10/08/2019 12:29:14 AM [facility] E87.1 Hypo-osmolality and hyponatremia Hypo-osmolality and hyponatremia Diagnosis 09/22/2019 09:56:02 AM [facility] Surgeries/Procedures Procedure Description Date Indications Data Source(s) CT THORAX W/CONTRAST MATERIAL CT THORAX WITH CONTRAST [id number] [place] 10/31/2020 2:21 PM EST Primary adenocarcinoma of right lung 10/31/2020 02:21:57 PM EST Primary adenocarcinoma of right lung [facility] Primary adenocarcinoma of right lung BLOOD COUNT COMPLETE AUTO&AUTO DIFRNTL WBC COUNT CBC AND DIFFER ENTIAL STAT 10/23/2020 12:45 PM EST Primary adenocarcinoma of right lung 10/23/2020 12:45:00 PM EST Primary adenocarcinoma of right lung [facility] Primary adenocarcinoma of right lung THYROID STIMULATING HORMONE TSH TSH Routine 10/23/19 12:45 PM EST Primary adenocarcinoma of right lung 10/23/2020 12:45:00 PM EST Primary adenocarcinoma of right lung [facility] Primary adenocarcinoma of right lung COMPREHENSIVE METABOLIC PANEL COMPREHENSIVE METABOLIC PANEL STA T 10/23/2020 12:45 PM EST Primary adenocarcinoma of right lung 10/23/2020 12:45:00 PM EST Primary adenocarcinoma of right lung [facility] Primary adenocarcinoma of right lung IRON TOTAL FE BINDING CAPACITY Routine 09/27/2020 1:00 PM EST 09/27/2020 01:00:00 PM [facility] BLOOD COUNT COMPLETE AUTO&AUTO DIFRNTL WBC COUNT CBC AND DIFFER ENTIAL STAT 09/27/2020 1:00 PM EST Primary adenocarcinoma of right lung 09/27/2020 01:00:00 PM EST Primary adenocarcinoma of right lung [facility] Primary adenocarcinoma of right lung THYROID STIMULATING HORMONE TSH TSH Routine 09/27/20 20 1:00 PM EST Primary adenocarcinoma of right lung 09/27/2020 01:00:00 PM EST Primary adenocarcinoma of right lung [facility] Primary adenocarcinoma of right lung FERRITIN FERRITIN LEVEL Routine 09/27/2020 1:00 PM EST 09/27/2020 01:00:00 PM [facility] COMPREHENSIVE METABOLIC PANEL COMPREHENSIVE METABOLIC PANEL STA T 09/27/2020 1:00 PM EST Primary adenocarcinoma of right lung 09/27/2020 01:00:00 PM EST Primary adenocarcinoma of right lung [facility] Primary adenocarcinoma of right lung BLOOD COUNT COMPLETE AUTO&AUTO DIFRNTL WBC COUNT CBC AND DIFFER ENTIAL STAT 09/03/2020 11:03 AM EST Primary adenocarcinoma of right lung 09/03/2020 11:03:00 AM EST Primary adenocarcinoma of right lung [facility] Primary adenocarcinoma of right lung THYROID STIMULATING HORMONE TSH TSH Routine 09/03/20 20 11:03 AM EST Primary adenocarcinoma of right lung 09/03/2020 11:03:00 AM EST Primary adenocarcinoma of right lung [facility] Primary adenocarcinoma of right lung COMPREHENSIVE METABOLIC PANEL COMPREHENSIVE METABOLIC PANEL STA T 09/03/2020 11:03 AM EST Primary adenocarcinoma of right lung 09/03/2020 11:03:00 AM EST Primary adenocarcinoma of right lung [facility] Primary adenocarcinoma of right lung Venipuncture (routine) Venipuncture (routine) 08/21/2020 12:00:00 A M [facility] ([facility]) CMP-Complete Metabolic Profile CMP-Complete Metabolic Profil e 08/21/2020 12:00:00 AM [facility]) CBC CBC 08/21/2020 12:00:00 AM EST [facility] ([facility]) BLOOD COUNT COMPLETE AUTO&AUTO DIFRNTL WBC COUNT CBC AND DIFFER ENTIAL STAT 08/13/2020 12:38 PM EDT Primary adenocarcinoma of right lung 08/13/2020 12:38:00 PM EDT Primary adenocarcinoma of right lung [facility] Primary adenocarcinoma of right lung THYROID STIMULATING HORMONE TSH TSH Routine 08/13/20 20 12:38 PM EDT Primary adenocarcinoma of right lung 08/13/2020 12:38:00 PM EDT Primary adenocarcinoma of right lung [facility] Primary adenocarcinoma of right lung COMPREHENSIVE METABOLIC PANEL COMPREHENSIVE METABOLIC PANEL STA T 08/13/2020 12:38 PM EDT Primary adenocarcinoma of right lung 08/13/2020 12:38:00 PM EDT Primary adenocarcinoma of right lung [facility] Primary adenocarcinoma of right lung Myocardial Perfusion [...] AM EDT Primary adenocarcinoma of right lung [facility] Primary adenocarcinoma of right lung THYROID STIMULATING HORMONE TSH TSH Routine 07/19/20 20 10:11 AM EDT Primary adenocarcinoma of right lung 07/19/2020 10:11:00 AM EDT Primary adenocarcinoma of right lung [facility] Primary adenocarcinoma of right lung COMPREHENSIVE METABOLIC PANEL COMPREHENSIVE METABOLIC PANEL STA T 07/19/2020 10:11 AM EDT Primary adenocarcinoma of right lung 07/19/2020 10:11:00 AM EDT Primary adenocarcinoma of right lung [facility] Primary adenocarcinoma of right lung EKG- Electrocardiogram/12 lead EKG- Electrocardiogram/12 lois d 07/12/2020 12:00:00 AM EDT [facility]) EKG- Electrocardiogram/12 lead EKG- Electrocardiogram/12 lois d 07/12/2020 12:00:00 AM EDT [place] ([facility]) BLOOD COUNT COMPLETE AUTO&AUTO DIFRNTL WBC COUNT CBC AND DIFFER ENTIAL STAT 06/21/2020 12:30 PM EDT Primary adenocarcinoma of right lung 06/21/2020 12:30:00 PM EDT Primary adenocarcinoma of right lung [facility] Primary adenocarcinoma of right lung THYROID STIMULATING HORMONE TSH TSH Routine 06/21/20 20 12:30 PM EDT Primary adenocarcinoma of right lung 06/21/2020 12:30:00 PM EDT Primary adenocarcinoma of right lung [facility] Primary adenocarcinoma of right lung COMPREHENSIVE METABOLIC PANEL COMPREHENSIVE METABOLIC PANEL STA T 06/21/2020 12:30 PM EDT Primary adenocarcinoma of right lung 06/21/2020 12:30:00 PM EDT Primary adenocarcinoma of right lung [facility] Primary adenocarcinoma of right lung EKG- Electrocardiogram/12 lead (Distinct Seperate serv ice-same day) EKG- Electrocardiogram/12 lead (Distinct Seperate service-same day) 06/19/2020 12:00:00 AM EDT [facility]) EKG- Electrocardiogram/12 lead EKG- Electrocardiogram/12 lois d 06/19/2020 12:00:00 AM EDT [place] ([facility]) Spirometry 06/11/2020 12:00:00 AM EDT [facility] ([facility], ) Aerosol Or Vapor Inhalations 06/11/2020 12:00:00 AM ED T [facility] ([facility], ) GLUCOSE QUANTITATIVE BLOOD XCPT REAGENT STRIP POCT GLUCOSE, DOC KED Routine 05/31/2020 1:39 PM EDT 05/31/2020 01:39:00 PM EDT [facility] GLUCOSE QUANTITATIVE BLOOD XCPT REAGENT STRIP POCT GLUCOSE, DOC KED Routine 05/31/2020 1:18 PM EDT 05/31/2020 01:18:00 PM EDT [facility] BLOOD COUNT COMPLETE AUTO&AUTO DIFRNTL WBC COUNT CBC AND DIFFER ENTIAL STAT 05/31/2020 12:20 PM EDT Primary adenocarcinoma of right lung 05/31/2020 12:20:00 PM EDT Primary adenocarcinoma of right lung [facility] Primary adenocarcinoma of right lung THYROID STIMULATING HORMONE TSH TSH Routine 05/31/20 20 12:20 PM EDT Primary adenocarcinoma of right lung 05/31/2020 12:20:00 PM EDT Primary adenocarcinoma of right lung [facility] Primary adenocarcinoma of right lung COMPREHENSIVE METABOLIC PANEL COMPREHENSIVE METABOLIC PANEL STA T 05/31/2020 12:20 PM EDT Primary adenocarcinoma of right lung 05/31/2020 12:20:00 PM EDT Primary adenocarcinoma of right lung [facility] Primary adenocarcinoma of right lung BLOOD COUNT COMPLETE AUTO&AUTO DIFRNTL WBC COUNT CBC AND DIFFER ENTIAL STAT 05/10/2020 12:10 PM EDT Primary adenocarcinoma of right lung 05/10/2020 04:10:00 PM EDT Primary adenocarcinoma of right lung [facility] Primary adenocarcinoma of right lung THYROID STIMULATING HORMONE TSH TSH Routine 05/10/20 12:10 PM EDT Primary adenocarcinoma of right lung 05/10/2020 04:10:00 PM EDT Primary adenocarcinoma of right lung [facility] Primary adenocarcinoma of right lung COMPREHENSIVE METABOLIC PANEL COMPREHENSIVE METABOLIC PANEL STA T 05/10/2020 12:10 PM EDT Primary adenocarcinoma of right lung 05/10/2020 04:10:00 PM EDT Primary adenocarcinoma of right lung [facility] Primary adenocarcinoma of right lung IRON BINDING CAPACITY TOTAL FE BINDING CAPACITY STAT 04/19 12:35 PM EDT Iron deficiency anemia, unspecified iron deficiency anemia type 04/19/2020 04:35:00 PM EDT Iron deficiency anemia, unspecified iron deficiency an emia type [facility] Iron deficiency anemia, unspecified iron deficiency anemia type BLOOD COUNT COMPLETE AUTO&AUTO DIFRNTL WBC COUNT CBC AND DIFFER ENTIAL STAT 04/19/2020 12:35 PM EDT Primary adenocarcinoma of right lung 04/19/2020 04:35:00 PM EDT Primary adenocarcinoma of right lung [facility] Primary adenocarcinoma of right lung TRIIODOTHYRONINE T3 TOTAL TT3 T3 Routine 04/19/2020 12:35 PM EDT Fatigue, unspecified type 04/19/2020 04:35:00 PM EDT Fatigue , unspecified type [facility] Fatigue, unspecified type THYROID STIMULATING HORMONE TSH TSH Routine 04/19/20 20 12:35 PM EDT Primary adenocarcinoma of right lung 04/19/2020 04:35:00 PM EDT Primary adenocarcinoma of right lung [facility] Primary adenocarcinoma of right lung THYROXINE FREE T4, FREE Routine 04/19/2020 12:35 PM EDT Fatigue, unspecified type 04/19/2020 04:35:00 PM EDT Fatigue , unspecified type [facility] Fatigue, unspecified type FERRITIN FERRITIN LEVEL STAT 04/19/2020 12:35 PM EDT Iron deficiency anemia, unspecified iron deficiency anemia type 04/19/2020 04:35:00 PM EDT Iron deficiency anemia, unspecified iron deficiency an emia type [facility] Iron deficiency anemia, unspecified iron deficiency anemia type COMPREHENSIVE METABOLIC PANEL COMPREHENSIVE METABOLIC PANEL STA T 04/19/2020 12:35 PM EDT Primary adenocarcinoma of right lung 04/19/2020 04:35:00 PM EDT Primary adenocarcinoma of right lung [facility] Primary adenocarcinoma of right lung Measurement Post Voiding Residual Urine By Ultrasound,Non-Im aging 04/17/2020 12:00:00 AM EDT [facility] ([facility]) Bronchospasm Evaluation 04/16/2020 12:00:00 AM EDT [facility] ([facility], ) Maximum Breathing Capacity, Maximal Voluntary Ventilation 04/16/2020 12:00:00 AM EDT [facility] ([facility], ) Plethysmography Determination Lung Volumes & Per Airway Resi st 04/16/2020 12:00:00 AM EDT [facility] ([facility], ) DIFFUSING CAPACITY 04/16/2020 12:00:00 AM EDT [facility] ([facility], ) IRON TOTAL FE BINDING CAPACITY Routine 03/29/2020 10:15 AM EDT 03/29/2020 02:15:00 PM EDT [facility] BLOOD COUNT COMPLETE AUTO&AUTO DIFRNTL WBC COUNT CBC AND DIFFER ENTIAL STAT 03/29/2020 10:15 AM EDT Primary adenocarcinoma of right lung 03/29/2020 02:15:00 PM EDT Primary adenocarcinoma of right lung [facility] Primary adenocarcinoma of right lung THYROID STIMULATING HORMONE TSH TSH Routine 03/29/20 10:15 AM EDT Primary adenocarcinoma of right lung 03/29/2020 02:15:00 PM EDT Primary adenocarcinoma of right lung [facility] Primary adenocarcinoma of right lung FERRITIN FERRITIN LEVEL Routine 03/29/2020 10:15 AM EDT 03/29/2020 02:15:00 PM EDT [facility] COMPREHENSIVE METABOLIC PANEL COMPREHENSIVE METABOLIC PANEL STA T 03/29/2020 10:15 AM EDT Primary adenocarcinoma of right lung 03/29/2020 02:15:00 PM EDT Primary adenocarcinoma of right lung [facility] Primary adenocarcinoma of right lung BLOOD COUNT COMPLETE AUTO&AUTO DIFRNTL WBC COUNT CBC AND DIFFER ENTIAL STAT 03/08/2020 1:20 PM EDT Primary adenocarcinoma of right lung 03/08/2020 05:20:00 PM EDT Primary adenocarcinoma of right lung [facility] Primary adenocarcinoma of right lung THYROID STIMULATING HORMONE TSH TSH Routine 03/08/20 1:20 PM EDT Primary adenocarcinoma of right lung 03/08/2020 05:20:00 PM EDT Primary adenocarcinoma of right lung [facility] Primary adenocarcinoma of right lung COMPREHENSIVE METABOLIC PANEL COMPREHENSIVE METABOLIC PANEL STA T 03/08/2020 1:20 PM EDT Primary adenocarcinoma of right lung 03/08/2020 05:20:00 PM EDT Primary adenocarcinoma of right lung [facility] Primary adenocarcinoma of right lung Spirometry 02/23/2020 12:00:00 AM EDT [facility] ([facility], ) Aerosol Or Vapor Inhalations 02/23/2020 12:00:00 AM ED T [facility] ([facility], ) BLOOD COUNT COMPLETE AUTO&AUTO DIFRNTL WBC COUNT CBC AND DIFFER ENTIAL STAT 02/14/2020 12:38 PM EDT Primary adenocarcinoma of right lung 02/14/2020 04:38:00 PM EDT Primary adenocarcinoma of right lung [facility] Primary adenocarcinoma of right lung THYROID STIMULATING HORMONE TSH TSH Routine 02/14/20 12:38 PM EDT Primary adenocarcinoma of right lung 02/14/2020 04:38:00 PM EDT Primary adenocarcinoma of right lung [facility] Primary adenocarcinoma of right lung COMPREHENSIVE METABOLIC PANEL COMPREHENSIVE METABOLIC PANEL STA T 02/14/2020 12:38 PM EDT Primary adenocarcinoma of right lung 02/14/2020 04:38:00 PM EDT Primary adenocarcinoma of right lung [facility] Primary adenocarcinoma of right lung IRON TOTAL FE BINDING CAPACITY Routine 01/24/2020 1:27 PM EDT 01/24/2020 05:27:00 PM EDT [facility] BLOOD COUNT COMPLETE AUTO&AUTO DIFRNTL WBC COUNT CBC AND DIFFER ENTIAL STAT 01/24/2020 1:27 PM EDT Primary adenocarcinoma of right lung 01/24/2020 05:27:00 PM EDT Primary adenocarcinoma of right lung [facility] Primary adenocarcinoma of right lung THYROID STIMULATING HORMONE TSH TSH Routine 01/24/20 1:27 PM EDT Primary adenocarcinoma of right lung 01/24/2020 05:27:00 PM EDT Primary adenocarcinoma of right lung [facility] Primary adenocarcinoma of right lung FERRITIN FERRITIN LEVEL Routine 01/24/2020 1:27 PM EDT 01/24/2020 05:27:00 PM EDT [facility] COMPREHENSIVE METABOLIC PANEL COMPREHENSIVE METABOLIC PANEL STA T 01/24/2020 1:27 PM EDT Primary adenocarcinoma of right lung 01/24/2020 05:27:00 PM EDT Primary adenocarcinoma of right lung [facility] Primary adenocarcinoma of right lung BLOOD COUNT COMPLETE AUTO&AUTO DIFRNTL WBC COUNT CBC AND DIFFER ENTIAL STAT 01/03/2020 12:05 PM EDT Primary adenocarcinoma of right lung 01/03/2020 04:05:00 PM EDT Primary adenocarcinoma of right lung [facility] Primary adenocarcinoma of right lung TRIIODOTHYRONINE T3 TOTAL TT3 T3 Routine 01/03/2020 12:05 PM EDT 01/03/2020 04:05:00 PM EDT [facility] THYROID STIMULATING HORMONE TSH TSH Routine 01/03/20 12:05 PM EDT Primary adenocarcinoma of right lung 01/03/2020 04:05:00 PM EDT Primary adenocarcinoma of right lung [facility] Primary adenocarcinoma of right lung THYROXINE FREE T4, FREE Routine 01/03/2020 12:05 PM EDT 01/03/2020 04:05:00 PM EDT [facility] COMPREHENSIVE METABOLIC PANEL COMPREHENSIVE METABOLIC PANEL STA T 01/03/2020 12:05 PM EDT Primary adenocarcinoma of right lung 01/03/2020 04:05:00 PM EDT Primary adenocarcinoma of right lung [facility] Primary adenocarcinoma of right lung BLOOD COUNT COMPLETE AUTO&AUTO DIFRNTL WBC COUNT CBC AND DIFFER ENTIAL STAT 12/13/2019 1:00 PM EST Primary adenocarcinoma of right lung 12/13/2019 06:00:00 PM EST Primary adenocarcinoma of right lung [facility] Primary adenocarcinoma of right lung THYROID STIMULATING HORMONE TSH TSH Routine 12/13/19 20 1:00 PM EST Primary adenocarcinoma of right lung 12/13/2019 06:00:00 PM EST Primary adenocarcinoma of right lung [facility] Primary adenocarcinoma of right lung COMPREHENSIVE METABOLIC PANEL COMPREHENSIVE METABOLIC PANEL STA T 12/13/2019 1:00 PM EST Primary adenocarcinoma of right lung 12/13/2019 06:00:00 PM EST Primary adenocarcinoma of right lung [facility] Primary adenocarcinoma of right lung Venipuncture (routine) Venipuncture (routine) 11/29/2019 12:00:00 A M EST [place] ([facility]) CMP-Complete Metabolic Profile CMP-Complete Metabolic Profil e 11/29/2019 12:00:00 AM EST [place] ([facility]) BLOOD COUNT COMPLETE AUTO&AUTO DIFRNTL WBC COUNT CBC AND DIFFER ENTIAL STAT 11/17/2019 12:25 PM EST Primary adenocarcinoma of right lung 11/17/2019 05:25:00 PM EST Primary adenocarcinoma of right lung [facility] Primary adenocarcinoma of right lung THYROID STIMULATING HORMONE TSH TSH Routine 11/17/19 20 12:25 PM EST Primary adenocarcinoma of right lung 11/17/2019 05:25:00 PM EST Primary adenocarcinoma of right lung [facility] Primary adenocarcinoma of right lung COMPREHENSIVE METABOLIC PANEL COMPREHENSIVE METABOLIC PANEL STA T 11/17/2019 12:25 PM EST Primary adenocarcinoma of right lung 11/17/2019 05:25:00 PM EST Primary adenocarcinoma of right lung [facility] Primary adenocarcinoma of right lung BLOOD COUNT COMPLETE AUTO&AUTO DIFRNTL WBC COUNT CBC AND DIFFER ENTIAL STAT 10/27/2019 11:43 AM EST Primary adenocarcinoma of right lung 10/27/2019 04:43:00 PM EST Primary adenocarcinoma of right lung [facility] Primary adenocarcinoma of right lung THYROID STIMULATING HORMONE TSH TSH STAT 10/27/19 20 11:43 AM EST Primary adenocarcinoma of right lung Other fatigue 10/27/2019 04:43:00 PM EST Other fatigue Primary adenocarcinoma of right lung [facility] Other fatigue Primary adenocarcinoma of right lung COMPREHENSIVE METABOLIC PANEL COMPREHENSIVE METABOLIC PANEL STA T 10/27/2019 11:43 AM EST Primary adenocarcinoma of right lung 10/27/2019 04:43:00 PM EST Primary adenocarcinoma of right lung [facility] Primary adenocarcinoma of right lung no charge procedure no charge procedure 10/25/2019 12:00:00 AM EST [place] ([facility]) BLOOD COUNT COMPLETE AUTO&AUTO DIFRNTL WBC COUNT CBC AND DIFFER ENTIAL STAT 10/20/2019 10:55 AM EST Primary adenocarcinoma of right lung 10/20/2019 03:55:00 PM EST Primary adenocarcinoma of right lung [facility] Primary adenocarcinoma of right lung THYROID STIMULATING HORMONE TSH TSH Routine 10/20/19 20 10:55 AM EST Primary adenocarcinoma of right lung 10/20/2019 03:55:00 PM EST Primary adenocarcinoma of right lung [facility] Primary adenocarcinoma of right lung COMPREHENSIVE METABOLIC PANEL COMPREHENSIVE METABOLIC PANEL STA T 10/20/2019 10:55 AM EST Primary adenocarcinoma of right lung 10/20/2019 03:55:00 PM EST Primary adenocarcinoma of right lung [facility] Primary adenocarcinoma of right lung BLOOD COUNT COMPLETE AUTO&AUTO DIFRNTL WBC COUNT CBC AND DIFFER ENTIAL Routine 10/13/2019 1:31 PM EST 10/13/2019 06:31:00 PM [facility] BASIC METABOLIC PANEL CALCIUM TOTAL BASIC METABOLIC PANEL Routi ne 10/13/2019 1:31 PM EST 10/13/2019 06:31:00 PM [facility] BLOOD COUNT COMPLETE AUTO&AUTO DIFRNTL WBC COUNT CBC AND DIFFER ENTIAL Routine 10/12/2019 1:02 AM EST 10/12/2019 06:02:00 AM [facility] BASIC METABOLIC PANEL CALCIUM TOTAL BASIC METABOLIC PANEL Routi ne 10/12/2019 1:02 AM EST 10/12/2019 06:02:00 AM [facility] GLUCOSE QUANTITATIVE BLOOD XCPT REAGENT STRIP POCT GLUCOSE, DOC KED Routine 10/11/2019 4:51 PM EST 10/11/2019 09:51:00 PM [facility] BLOOD COUNT COMPLETE AUTO&AUTO DIFRNTL WBC COUNT CBC AND DIFFER ENTIAL Routine 10/11/2019 4:14 AM EST 10/11/2019 09:14:00 AM [facility] BASIC METABOLIC PANEL CALCIUM TOTAL BASIC METABOLIC PANEL Routi ne 10/11/2019 4:14 AM EST 10/11/2019 09:14:00 AM [facility] COMMUNITY-ACQUIRED DIARRHEA PANEL COMMUNITY-ACQUIRED DIARRHEA P TY Routine 10/10/2019 4:16 PM EST 10/10/2019 09:16:00 PM [facility] OSMOLALITY URINE OSMOLALITY, URINE Routine 10/10/2019 4:16 PM EST 10/10/2019 09:16:00 PM [facility] OVA&PARASITES DIRECT SMEARS CONCENTRATION&ID OVA AND PARASITE S CREEN Routine 10/10/2019 4:16 PM EST 10/10/2019 09:16:00 PM [facility] SODIUM URINE SODIUM, URINE, RANDOM Routine 10/10/2019 6:17 AM EST 10/10/2019 11:17:00 AM [facility] THYROID STIMULATING HORMONE TSH TSH Routine 10/10/2019 5:52 AM EST 10/10/2019 10:52:00 AM [facility] CORTISOL TOTAL CORTISOL Routine 10/10/2019 5:52 AM EST 10/10/2019 10:52:00 AM [facility] BLOOD COUNT COMPLETE AUTO&AUTO DIFRNTL WBC COUNT CBC AND DIFFER ENTIAL Routine 10/10/2019 3:28 AM EST 10/10/2019 08:28:00 AM [facility] BASIC METABOLIC PANEL CALCIUM TOTAL BASIC METABOLIC PANEL Routi ne 10/10/2019 3:28 AM EST 10/10/2019 08:28:00 AM [facility] BLOOD OCCULT FECAL HGB DETER IA QUAL FECES 1-3 FECAL OCCULT BLOOD, LOWER GI (HEMOCCULT-ICT), FIT TESTING, Routine 10/09/2019 6:29 AM EST 10/09/2019 11:29:00 AM [facility] BLOOD COUNT COMPLETE AUTO&AUTO DIFRNTL WBC COUNT CBC AND DIFFER ENTIAL Routine 10/09/2019 4:15 AM EST 10/09/2019 09:15:00 AM [facility] THYROID STIMULATING HORMONE TSH TSH Routine 10/09/2019 4:15 AM EST 10/09/2019 09:15:00 AM [facility] HEMOGLOBIN GLYCOSYLATED A1C HEMOGLOBIN A1C Routine 10/09/2019 4:15 AM EST 10/09/2019 09:15:00 AM [facility] LIPID PANEL LIPID PANEL Routine 10/09/2019 4:15 AM EST 10/09/2019 09:15:00 AM [facility] BASIC METABOLIC PANEL CALCIUM TOTAL BASIC METABOLIC PANEL Routi ne 10/09/2019 4:15 AM EST 10/09/2019 09:15:00 AM [facility] CT HEAD/BRAIN W/O CONTRAST MATERIAL CT HEAD WITHOUT CONTRAST 70 450 Routine 10/09/2019 1:50 AM EST 10/09/2019 06:50:00 AM [facility] EEG ROUTINE STUDY EEG ROUTINE STUDY Routine 10/08/2019 4:10 PM EST 10/08/2019 09:10:00 PM [facility] BLOOD COUNT COMPLETE AUTOMATED CBC Routine 10/08/2019 2:53 P M EST 10/08/2019 07:53:00 PM [facility] RESPIRATORY PANEL RESPIRATORY PANEL Routine 10/08/2019 9:21 AM EST 10/08/2019 02:21:00 PM [facility] CULTURE BACTERIAL BLOOD AEROBIC W/ID ISOLATES BLOOD CULTURE R outine 10/08/2019 9:21 AM EST 10/08/2019 02:21:00 PM [facility] CULTURE BACTERIAL BLOOD AEROBIC W/ID ISOLATES BLOOD CULTURE R outine 10/08/2019 9:21 AM EST 10/08/2019 02:21:00 PM [facility] MRI BRAIN BRAIN STEM W/O CONTRAST MATERIAL MR BRAIN WITHOUT CONTRAST [id number] STAT 10/08/2019 9:08 AM EST 10/08/2019 02:08:00 PM [facility] ECHO TTHRC R-T 2D W/WOM-MODE COMPL SPEC&COLR DOP ECHOCARDIO GRAM 2D COMPLETE Routine 10/08/2019 7:53 AM EST 10/08/2019 12:53:19 PM [facility] BLOOD COUNT COMPLETE AUTO&AUTO DIFRNTL WBC COUNT CBC AND DIFFER ENTIAL Routine 10/08/2019 6:29 AM EST 10/08/2019 11:29:00 AM [facility] THYROID STIMULATING HORMONE TSH TSH Routine 10/08/2019 6:29 AM EST 10/08/2019 11:29:00 AM [facility] THYROXINE FREE T4, FREE Routine 10/08/2019 6:29 AM EST 10/08/2019 11:29:00 AM [facility] HEMOGLOBIN GLYCOSYLATED A1C HEMOGLOBIN A1C Routine 10/08/2019 6:29 AM EST 10/08/2019 11:29:00 AM [facility] LIPID PANEL LIPID PANEL Routine 10/08/2019 6:29 AM EST 10/08/2019 11:29:00 AM [facility] COMPREHENSIVE METABOLIC PANEL COMPREHENSIVE METABOLIC PANEL Rou mark 10/08/2019 6:29 AM EST 10/08/2019 11:29:00 AM [facility] URNLS DIP STICK/TABLET REAGENT AUTO MICROSCOPY URINALYSIS W ITH MICROSCOPIC STAT 10/08/2019 1:24 AM EST 10/08/2019 06:24:00 AM [facility] XR CHEST FRONTAL ONLY 30092 XR CHEST FRONTAL ONLY [id number] STAT 10/08/2019 1:19 AM EST 10/08/2019 06:19:51 AM [facility] EKG ED PHYSICIAN INTERPRETATION EKG ED PHYSICIAN INTERPRETATION Routine 10/08/2019 1:15 AM EST 10/08/2019 06:15:19 AM [facility] EKG 12-LEAD - CMAXX REPORT EKG 12-LEAD - CMAXX REPORT 10/08/2019 1:10 AM EST 10/08/2019 06:10:27 AM [facility] EKG 12-LEAD - CMAXX REPORT EKG 12-LEAD - CMAXX REPORT 10/08/2019 1:10 AM EST 10/08/2019 06:10:27 AM [facility] EKG 12-LEAD EKG 12-LEAD STAT 10/08/2019 1:10 AM EST 10/08/2019 06:10:27 AM [facility] EKG 12-LEAD - CMAXX REPORT EKG 12-LEAD - CMAXX REPORT 10/08/2019 1:10 AM EST 10/08/2019 06:10:00 AM [facility] THROMBOPLASTIN TIME PARTIAL PLASMA/WHOLE BLOOD PARTIA L THROMBOPLASTIN TIME (PTT) STAT 10/08/2019 12:55 AM EST 10/08/2019 05:55 :00 AM [facility] ACETAMINOPHEN, RANDOM ACETAMINOPHEN, RANDOM STAT 10/08/2019 12:5 5 AM EST 10/08/2019 05:55:00 AM [facility] ETHYL ALCOHOL LEVEL ETHYL ALCOHOL LEVEL STAT 10/08/2019 12:55 AM EST 10/08/2019 05:55:00 AM [facility] PROTHROMBIN TIME PROTIME INR STAT 10/08/2019 12:55 AM EST 10/08/2019 05:55:00 AM [facility] BLOOD COUNT COMPLETE AUTO&AUTO DIFRNTL WBC COUNT CBC AND DIFFER ENTIAL STAT 10/08/2019 12:55 AM EST 10/08/2019 05:55:00 AM [facility] AMMONIA AMMONIA LEVEL STAT 10/08/2019 12:55 AM EST 10/08/2019 05:55:00 AM [facility] SALICYLATE LEVEL SALICYLATE LEVEL STAT 10/08/2019 12:55 AM EST 10/08/2019 05:55:00 AM [facility] COMPREHENSIVE METABOLIC PANEL COMPREHENSIVE METABOLIC PANEL STA T 10/08/2019 12:55 AM EST 10/08/2019 05:55:00 AM [facility] BLOOD GASES ANY COMBINATION PH PCO2 PO2 CO2 HCO3 POCT ISTAT VBG /LAC Routine 10/08/2019 12:52 AM EST 10/08/2019 05:52:00 AM [facility] BASIC METABOLIC PANEL CALCIUM IONIZED POCT ISTAT CHEM8 Routine 10/08/2019 12:51 AM EST 10/08/2019 05:51:00 AM [facility] CT ANGIOGRAPHY NECK W/CONTRAST/NONCONTRAST CT ANGIOGRAPHY NECK [id number] STAT 10/08/2019 12:45 AM EST 10/08/2019 05:45:00 AM [facility] CT ANGIOGRAPHY HEAD W/CONTRAST/NONCONTRAST CT ANGIOGRAPHY HEAD [id number] STAT 10/08/2019 12:45 AM EST 10/08/2019 05:45:00 AM [facility] BLOOD COUNT COMPLETE AUTO&AUTO DIFRNTL WBC COUNT CBC AND DIFFER ENTIAL STAT 09/22/2019 10:05 AM EST Primary adenocarcinoma of right lung 09/22/2019 03:05:00 PM EST Primary adenocarcinoma of right lung [facility] Primary adenocarcinoma of right lung TRIIODOTHYRONINE T3 TOTAL TT3 T3 Routine 09/22/2019 10:05 AM EST 09/22/2019 03:05:00 PM [facility] THYROID STIMULATING HORMONE TSH TSH Routine 09/22/20 19 10:05 AM EST Primary adenocarcinoma of right lung 09/22/2019 03:05:00 PM EST Primary adenocarcinoma of right lung [facility] Primary adenocarcinoma of right lung THYROXINE FREE T4, FREE Routine 09/22/2019 10:05 AM EST 09/22/2019 03:05:00 PM [facility] COMPREHENSIVE METABOLIC PANEL COMPREHENSIVE METABOLIC PANEL STA T 09/22/2019 10:05 AM EST Primary adenocarcinoma of right lung 09/22/2019 03:05:00 PM EST Primary adenocarcinoma of right lung [facility] Primary adenocarcinoma of right lung Results ID Date Data Source [id number] 11/01/2020 03:19:14 PM EST [facility] CT ABDOMEN PELVIS WITH CONTRAST [id number] AL RESULTInterpreted by:Kwan Meyer DOINDICATION: History of [...] rce(s) Supporting Document(s) ID Date Data Source [id number] 10/31/2020 03:02:[address] [facility] CT THORAX WITH CONTRAST [id number] RESUL TInterpreted by:Prabhjot Nguyen, MDCT thorax.INDICATION: Primary [...] There is persistent dilatation of the residual [place] esophagus.Mild stable apparent bilateral basilar honeycombing.This document has been electronically signed by Prabhjot Nguyen MD on 10/31/2020 2:59 PM Name Value Range Interpretation Code Description Data Neva rce(s) Supporting Document(s) ID Date Data Source [id number] 10/28/2020 12:00:[address] [facility] Name Value Range Interpretation Code Description Data Neva rce(s) Supporting Document(s) Progress Note [facility] JGWCEs2sIxEFRwGo39/ZDKryLKXka1ScJEolMJe3VZvtXPXnL8OgQZN7cF2iBKX4AJhXJuUjPeLpYWGc [facility] [file] KbVRK6TyAvWIOvFOH3LeUxUqPyPD5YJp7UMuK1JZQ6wOQjLi5KZHk5SCbUKaYtST9DXDv= ID Date Data Source [id number] 10/28/2020 12:00:28 PM [facility] Name Value Range Interpretation Code Description Data Neva rce(s) Supporting Document(s) Progress Note [facility] BEYHYe3jWzDPSkMa87/CURsqYQEus7PbHDbrAMq3KVftTOYgP6SmTHA0qX8zAUW3PCdBIbUgCbFbVWGi lbm [file] MzIzOCAwMDAwMCBuDQowMDAwMDQzNTYzIDAwMDAwIG 3NFfQhJGOxVVW1SgYhWJJtFGCarz5UKCVzUSU4EECjTgDpFWOjHSEbVYdfFBHnQYG1COY9FPBqBSRbEP 7GHaXtCPPtIFUvVQUjMIWlBPGznc6ZDRNgTUA5BXGaJENbBSKrIUZyEZquZLYtFFS4QRp9YVFzSBEfNL 6ANzYeVAGvLCO3PRSlNLQmZIMksr6SDERxYVE3KtH9 SICzRINuFDCcWLmwPOBhUSL0YGTmXEYpQOAiUJ5BToMdRRWgHTe7JkdiOSCkVZVjjb8CiCHibVmwws4H NHvBHs6YnUlnESKhHVdlFr6tuRHaPZPsEYHMRb0RrjHoCLGkWAGOAYuyZGCfTUteCVXnGCatQwNxFPJ3 XcCsTOI4LMHrJzmmO7Y1NWS4TvI6X5GdPnO5E0AyKn TcGNIkArW5AVSoTDLqQuR0DjukPna+RT2bACw+Hd7Do8QczsJ8ofPwAQe8CJXqOi8ASUMRY0DFNi== ID Date Data Source [id number] 10/23/2020 12:53:[address] [facility] Name Value Range Interpretation Code Description Data Neva e(s) Supporting Document(s) Leukocytes [#/volume] in Blood by Automated count 7.9 10*3/uL 4-10 [facility] Erythrocytes [#/volume] in Blood by Automated count 4.01 10*6/uL 4.6- 6.1 L [facility] Hemoglobin [Mass/volume] in Blood 12.7 g/dL 13.5-18 L [facility] Hematocrit [Volume Fraction] of Blood by Automated count 37.0 % 4 1-53 L [facility] Erythrocyte mean corpuscular volume [Entitic volume] by Auto mated count 92.4 fL 80-96 [facility] Erythrocyte mean corpuscular hemoglobin [Entitic mass] by Automated count 31.7 pg 27-33 [facility] Erythrocyte mean corpuscular hemoglobin concentration [Mass/volume] by Automated count 34.3 g/dL 32.0-36.0 [facility] width [Ratio] by Automated count 13.4 % 11.5-14.5 [facility] Platelets [#/volume] in Blood by Automated count 219 10*3/uL 150-400 [facility] Differential cell count method - Blood [facility] Neutrophils/100 leukocytes in Blood by Automated count 74 % [facility] Lymphocytes/100 leukocytes in Blood by Automated count 8 % [facility] Monocytes/100 leukocytes in Blood by Automated count 10 % [facility] Eosinophils/100 leukocytes in Blood by Automated count 7 % [facility] Basophils/100 leukocytes in Blood by Automated count 1 % [facility] Neutrophils [#/volume] in Blood by Automated count 5.87 10*3/uL 1.8-7 .0 [facility] Lymphocytes [#/volume] in Blood by Automated count 0.60 10*3/uL 1.2-4 .0 L [facility] Monocytes [#/volume] in Blood by Automated count 0.78 10*3/uL 0-0.8 [facility] Eosinophils [#/volume] in Blood by Automated count 0.56 10*3/uL 0-0.5 H [facility] Basophils [#/volume] in Blood by Automated count 0.07 10*3/uL 0-0.2 [facility] Nucleated erythrocytes/100 leukocytes [Ratio] in Blood by Automated count 0 /100{WBCs} 0-0 [facility] ID Date Data Source [id number] 10/23/2020 01:41:25 PM [facility] Name Value Range Interpretation Code Description Data Neva rce(s) Supporting Document(s) Albumin [Mass/volume] in Serum or Plasma by Bromocresol green (BCG) dye binding method 4.0 g/dL 3.5-5.2 [facility] Bilirubin.total [Mass/volume] in Serum or Plasma 0.4 mg/dL <1.2 [facility] Calcium [Mass/volume] in Serum or Plasma 9.1 mg/dL 8.8-10.2 [facility] Chloride [Moles/volume] in Serum or Plasma 97 mmol/L 98-107 L [facility] Creatinine [Mass/volume] in Serum or Plasma 0.83 mg/dL 0.70-1.20 [facility] Glucose [Mass/volume] in Serum or Plasma 161 mg/dL 70-140 H [facility] Alkaline phosphatase [Enzymatic activity/volume] in Serum or Plasma 82 U/L 40-129 [facility] Potassium [Moles/volume] in Serum or Plasma 4.1 mmol/L 3.4-5.1 [facility] Protein [Mass/volume] in Serum or Plasma 6.6 g/dL 6.4-8.3 [facility] Sodium [Moles/volume] in Serum or Plasma 132 mmol/L 136-145 L [facility] Aspartate aminotransferase [Enzymatic activity/volume] in Serum or Plasma 13 U/L <40 [facility] Urea nitrogen [Mass/volume] in Serum or Plasma 15 mg/dL 8-23 [facility] Osmolality of Serum or Plasma by calculation 278 mosm/kg 275-300 [facility] Creatinine/Urea nitrogen [Mass Ratio] in Serum or Plasma 18 [facility] Bicarbonate [Moles/volume] in Serum 26 mmol/L 22-29 [facility] Alanine aminotransferase [Enzymatic activity/volume] in Seru m or Plasma 10 U/L <41 [facility] Anion gap 3 in Serum or Plasma 9 mmol/L 8-15 [facility] Glomerular filtration rate/1.73 sq M pre dicted among non-blacks [Volume Rate/Area] in Serum or Plasma by Creatinine-based formula (MDRD) >6 0 [facility] Glomerular filtration rate/1.73 sq M pre dicted among blacks [Volume Rate/Area] in Serum or Plasma by Creatinine-based formula (MDRD) >60 [facility] ID Date Data Source [id number] 10/23/2020 05:57:[address] [facility] Name Value Range Interpretation Code Description Data Neva rce(s) Supporting Document(s) Thyrotropin [Units/volume] in Serum or Plasma 3.280 u[IU]/mL 0.270-4. 200 [facility] ID Date Data Source [id number] 10/09/2020 08:00:00 AM EST [facility] ([facility]) Name Value Range Interpretation Code Description Data Neva rce(s) Supporting Document(s) Appearance of Urine Laboratory test result [facility] ([facility]) Color of Urine Laboratory test result [facility] ([facility]) Leukocytes Laboratory test result [facility] ([facility]) Spec [place]pham 1.000 [facility] ([facility]) pH of Urine by Test strip 8 [facility] NT ([facility]) Protein [Presence] in Urine by Test strip Laboratory test result [facility] ([facility]) Inhouse Glucose Laboratory test result [facility] ([facility]) Nitrate [Presence] in Urine Laboratory test result [facility] ([facility]) Urobilinogen Laboratory test result [facility] ([facility]) Ketones [Presence] in Urine by Test strip Laboratory test result [facility] ([facility]) Bilirubin.total [Presence] in Urine by Test strip Laboratory test res ult [facility] ([facility]) Blood type and Indirect antibody screen panel - Blood Laboratory test result [facility] ([facility]) ID Date Data Source [id number] 09/28/2020 04:45:[address] [facility] Name Value Range Interpretation Code Description Data Neva rce(s) Supporting Document(s) Progress Note [facility] PABIGc2fQyZQErAw03/OSIosNSBux1PeTVgyNEs8RSksDIJoO1LoVZH2kH1lXXF0UArEIbPaMgObPpKi lbm [file] VP DELIVERY/8JKezlkBPXepOAIEJIe2fNIWjPnRH+yGgomRZ9Hgr5zV2D4zmCx5D9z80hRiXEQkBvk6MGZHkBqji [file] ICAgICAgICAgICAgICAgICAgICAgICAgICAgICAgIC KkEVNpEXQnBPSxUOTvMPYnAYVxCAYwMXBhBXVlKPRmDXSiOQNgVFGlYKZvBITjHGHlKF5FETGvKFJtIJ AgICAgICAgICAgICAgICAgICAgICAgICAgICAgICAgICAgICAgICAgICAgICAgICAgICAgICAgICAgIC AgICAgICAgICAgICAgICAgICAgICAgICAgICAgICAg FW0FGOUzKLUvTZUrTYKgGCXgEGWrJXMhPQPgONXhBGXrDUGkNQHkOADfYDWjLDJuONKpZAYbWXOiGUGb AALnNYHyBBIuQVXwFMDnFMMzKVGcOJAuVCHuYPVtWVAsONHeTZWyIAKsNK3NWBKpWDZpTAWnAUVrVRBd ICAgICAgICAgICAgICAgICAgICAgICAgICAgICAgIC UbPQYgXMPhAVJhFNYiLFUvQJMrTEDrWEAwFBZwHMTkATHxUOSfWCTbXSSlDKOeXINhONSeWC6IKVWiXJ AgICAgICAgICAgICAgICAgICAgICAgICAgICAgICAgICAgICAgICAgICAgICAgICAgICAgICAgICAgIC AgICAgICAgICAgICAgICAgICAgICAgICAgICAgICAg SCLbEM8KKBMwKSPiIIMcAUAbJDNwAVExGLIiQBVvWWWmJHQxECMmGJByYPNaVROjSLMeTGBaPGVcFECr ZNViBMJrUHPnNAZbOESmPBYuKOYwPSGiFTBzDAAuLJXhJSFhGQXbLKKiUMKqGM2JGVWxMLQnKCDdQIKv ICAgICAgICAgICAgICAgICAgICAgICAgICAgICAgIC PaQJLuLQOgLEAxEOWoFKIhPSTsYIFfLPZpCYEsCLRpCOJiYNXqWFJyKEDeQKFoQMNzUJEjEQEeMI3CLB AgICAgICAgICAgICAgICAgICAgICAgICAgICAgICAgICAgICAgICAgICAgICAgICAgICAgICAgICAgIC AgICAgICAgICAgICAgICAgICAgICAgICAgICAgICAg NWNeUQKsXY6FKTQxUHGlPCCvTUOiSXKnEPAfTPBgUHEhMZVqIWFxWYRzTZDxWSEkEZHlIKJfMJIxDFMt GQRrHVZiQOKmAHHvQXXuQIXhKHUjMEYvJECwCTRwCBTrIRXkEFVlLDRyYXDxVWZePI0TLXHfXUElNDMs ICAgICAgICAgICAgICAgICAgICAgICAgICAgICAgIC AgICAgICAgICAgICAgICAgICAgICAgICAgICAgICAgICAgICAgICAgICAgICAgICAgICAgICAgICAgIA 3DVU81tYLlr4Q2BTYpEF3fxyy/Zw5SQCpptmMweDCrQA7OSgQfJL7mas1WYtWqXJ0vor9CKMdNMnLeB0 P7uYWdDBLsWPKLWuOiZ07pLZiwBs74AUouFCPfPyAe WZj8Mt2MUcEuH9ygUZHsDxT3LOJoMsB7IIJqZiBdJCBoVJFwMHNhCTEBNJK0XHOeUvLdKdJkQLQlEYvq MMYJEKFdDSHwWpOeWPulMG5Fm3IzvDK5OEe+Hz2ALJ4st9KhNSynCwBdOH4cos3PJXfIIkPvQ0YubnM7 HNU1WKUgOr1QPSPaPPVttCZlEJXzFEMRXjSoJ3KziJ 15PTTSEp9+JPmwnmToKywYIeA6XGIjt9SgIRe2IS1RACIiFWa3tRDqUCFeV4Aej1QmTd39UOGtKhjlAQ SdELjvwDALJTBfNLWikAvyNlGsKDEsAKOeLGIdXeRoTPHpFjlwEQBVAKvBNuSiA8Ick4UcRoV1UGTfRm ZrKHahIGUoMpE8MY40iOoaDB5NUGPoMZZnFX68LVG9 XYFyOk4SSf1ANbWiHG6phn9PGlMvWB8cfc0NBNqJTmQiJ4T9pPIvN6Ldcu17HV4PlZO4pUXrCC5BrX1j FU2Jd5MmFTXkWcLmEGAqLVSyAOZxZKHaFdScTS7TEZKqKiYeuCYxQQNdLAguUSEhEoI5FtOjKU0CMNWi HJE6MQ7JTC6XRivzX4NYAWniuPywSeYOGDE/QUNUSV BRPHqqRNHrQ24WQ4KREIqOSbsxNVaYByklQb4pUDk+Fn2DRH9bq4AxJMcqFJRwFD6ykn7ATQzSFjLnG9 T8vBCdS3V0MWxkKt2FOJNqQJOvMcFwIWDGIOlxOM9QDV8nkeY5TZ2OhCQwDTQyFGXfiZXeQZg1A65lfP XaXGvyEA0SBNP+Delbert+Mj3FGINwHTEtFMEwJeYdQYOR CjEcT7RzE4IJm7VdY7QxED22pRdzihLuAEbnQE2VEN8oCKMbWPWJTY0LkNYutM1phhPpGyEnVDGPWtYn E89gsKMtNIEbQBA8BBIqYp9RYQCvM6NsdfAviVrllfQrUKDuNYVKFU8WXHmvfxCjpEBftWiuGV85cYer ON3KGr5WGlHoOX4rzj3JiJSoLg2ARZC8ZB4VWUKbXC JjNJVrDSW7WQXvLbXpNBwdUIHxRFLoDQX6YFIlYGCoUT3EOpAmFGGuVRCbEXJnVBYyKSIxou0YVIDaUM U3YhubPbNbFQKlTXOjRSfoPMFuEWRbNTA7LCRnXVYjWI0LMzIlXOUcQBGnNRNeGATxHEApwr3QFIZvEN T6TvP2CaRsETCcRWLgTPqgQHQoPWAxIJZ8MIYtQPUw TB9KAuMwPMGjMKo2UjjeOZOgHCZbet2WIWEbXVYcUZw4SjSgRUJzOJMbUWffBRMjSJUnYbFtTDLwATQr MD8XZsHxATGhTBW2UsBoZIVoCGVgge7KVTExZOYwBZX5AKRbRHKtFZCyBVozQMXrSGB2OpEvUOPaONKp PZ1AXfBkADInRYy5IdObHSHcGPQwkw5RJFGeIODnTI xzUxIkAKYmAMOjXPauFHEoZTVqYHkbHOQbWUNtIJ3YCmFyQGGfVvDzZphqNLKfFNHcco8AYAWdEYVrPs W7PRGuCVIuKFBrRFaiTCQoNKD0MKrfPQZcWRBhKM9HBuZqHSBgJqa6QEDkDCInVPVqml0VJFIcYILoYF ukEPYqHZDmGQHyKWqrYLFwYGR1BsNyCECaWQNsJX9K TaRrTKYmChl4IPgeHALfTVFttg5WPDUnKVNyWID7KUDiOCLqLDLrHHhnPNDnZFOnMYZvQTXnKTGaCW2H HnJkJZRuPgZcXOEoAANaUZAmgp9SQUSfBPPfTAH1OZJeFTVrXCBjPBduKXRrKFXwCHOnKGGwAVCmHA8F RqKaWONbLJSqNMVxBYWvNJAcag9RGNIeFHA4RxV5FA XfRSRsFZWoASwbDQCqIQUpUfM6JZEbMZQdFH8JPpVbPTJoGLL8SOGrCIMoCLDlqb4UUCQhGPX8OJw5UO XcNMOjZDJcUCeyIGPvXTZ0HUovOORqWNCmCL6VVwQxPMFpPAXyEoNcNFFyDFKaxy4PQDMoZMU0VUN8Nz UuMNEcYXUkAMboWTEmCJD4PAFdHQDgFGPyHG9VJhPj VWQlGVxxXuLwYAWjPQUzfn5YZBVgVKI7NuA3RsHbZSMrACLnEJe9pwJmqUGbUSu9TD8JZ6FjhoIjLUZZ Pp7Jp540RGW4YXGnGs5XY0fhYx2jNZGlASVBVc6UNBe3ISdfOjF6PgsdZIHlTFVyAqE7WST7VTDcHOF2 EWE1PGH+OPk3H5SuPvvkK7HdQBT0S4KgTqN8CLD8O7 KkNHfwXES4Fm0lCPKTEi2+PKvbeQDuqNjaPOISLyJ5UhE0KWktWUTLZt9M ID Date Data Source [id number] 09/27/2020 01:10:[address] [facility] Name Value Range Interpretation Code Description Data Neva rce(s) Supporting Document(s) Leukocytes [#/volume] in Blood by Automated count 8.1 10*3/uL 4-10 [facility] Erythrocytes [#/volume] in Blood by Automated count 4.13 10*6/uL 4.6- 6.1 L [facility] Hemoglobin [Mass/volume] in Blood 12.8 g/dL 13.5-18 L [facility] Hematocrit [Volume Fraction] of Blood by Automated count 37.7 % 4 1-53 L [facility] Erythrocyte mean corpuscular volume [Entitic volume] by Auto mated count 91.3 fL 80-96 [facility] Erythrocyte mean corpuscular hemoglobin [Entitic mass] by Automated count 31.1 pg 27-33 [facility] Erythrocyte mean corpuscular hemoglobin concentration [Mass/volume] by Automated count 34.0 g/dL 32.0-36.0 [facility] Erythrocyte distribution width [Ratio] by Automated count 14.0 % 11.5-14.5 [facility] Platelets [#/volume] in Blood by Automated count 220 10*3/uL 150-400 [facility] Differential cell count method - Blood [facility] Neutrophils/100 leukocytes in Blood by Automated count 71 % [facility] Lymphocytes/100 leukocytes in Blood by Automated count 8 % [facility] Monocytes/100 leukocytes in Blood by Automated count 11 % [facility] Eosinophils/100 leukocytes in Blood by Automated count 9 % [facility] Basophils/100 leukocytes in Blood by Automated count 1 % [facility] Neutrophils [#/volume] in Blood by Automated count 5.74 10*3/uL 1.8-7 .0 [facility] Lymphocytes [#/volume] in Blood by Automated count 0.68 10*3/uL 1.2-4 .0 L [facility] Monocytes [#/volume] in Blood by Automated count 0.89 10*3/uL 0-0.8 H [facility] Eosinophils [#/volume] in Blood by Automated count 0.73 10*3/uL 0-0.5 H [facility] Basophils [#/volume] in Blood by Automated count 0.09 10*3/uL 0-0.2 [facility] Nucleated erythrocytes/100 leukocytes [Ratio] in Blood by Automated count 0 /100{WBCs} 0-0 [facility] ID Date Data Source [id number] 09/27/2020 01:54:20 PM [facility] Name Value Range Interpretation Code Description Data Neva rce(s) Supporting Document(s) Albumin [Mass/volume] in Serum or Plasma by Bromocresol green (BCG) dye binding method 4.1 g/dL 3.5-5.2 [facility] Bilirubin.total [Mass/volume] in Serum or Plasma 0.5 mg/dL <1.2 [facility] Calcium [Mass/volume] in Serum or Plasma 8.7 mg/dL 8.8-10.2 L [facility] Chloride [Moles/volume] in Serum or Plasma 96 mmol/L 98-107 L [facility] Creatinine [Mass/volume] in Serum or Plasma 0.75 mg/dL 0.70-1.20 [facility] Glucose [Mass/volume] in Serum or Plasma 100 mg/dL 70-140 [facility] Alkaline phosphatase [Enzymatic activity/volume] in Serum or Plasma 82 U/L 40-129 [facility] Potassium [Moles/volume] in Serum or Plasma 4.0 mmol/L 3.4-5.1 [facility] Protein [Mass/volume] in Serum or Plasma 6.3 g/dL 6.4-8.3 L [facility] Sodium [Moles/volume] in Serum or Plasma 130 mmol/L 136-145 [facility] Aspartate aminotransferase [Enzymatic activity/volume] in Serum or Plasma 14 U/L <40 [facility] Urea nitrogen [Mass/volume] in Serum or Plasma 11 mg/dL 8-23 [facility] Osmolality of Serum or Plasma by calculation 269 mosm/kg 275-300 [facility] Creatinine/Urea nitrogen [Mass Ratio] in Serum or Plasma 15 [facility] Bicarbonate [Moles/volume] in Serum 27 mmol/L 22-29 [facility] Alanine aminotransferase [Enzymatic activity/volume] in Seru m or Plasma 12 U/L <41 [facility] Anion gap 3 in Serum or Plasma 7 mmol/L 8-15 L [facility] Glomerular filtration rate/1.73 sq M pre dicted among non-blacks [Volume Rate/Area] in Serum or Plasma by Creatinine-based formula (MDRD) >6 0 [facility] Glomerular filtration rate/1.73 sq M pre dicted among blacks [Volume Rate/Area] in Serum or Plasma by Creatinine-based formula (MDRD) >60 [facility] ID Date Data Source [id number] 09/27/2020 01:54:[address] [facility] Name Value Range Interpretation Code Description Data Neva rce(s) Supporting Document(s) Thyrotropin [Units/volume] in Serum or Plasma 3.470 u[IU]/mL 0.270-4. 200 [facility] ID Date Data Source [id number] 09/27/2020 02:18:[address] [facility] Name Value Range Interpretation Code Description Data Neva rce(s) Supporting Document(s) Ferritin [Mass/volume] in Serum or Plasma 155 ng/ml 30-400 [facility] ID Date Data Source [id number] 09/27/2020 02:46:[address] [facility] Name Value Range Interpretation Code Description Data Neva rce(s) Supporting Document(s) Iron [Mass/volume] in Serum or Plasma 100 ug/dl 59-158 [facility] Transferrin [Mass/volume] in Serum or Plasma 222 mg/dL 200-360 [facility] Iron binding capacity [Mass/volume] in Serum or Plasma 308 ug/dl 228 -428 [facility] Iron saturation [Mass Fraction] in Serum or Plasma 33.0 % 20-55 [facility] ID Date Data Source [id number] 09/06/2020 09:06:28 AM Health system Value Range Interpretation Code Description Data Neva rce(s) Supporting Document(s) Progress Note [facility] ZEZEXk8jAiWVHuOs55/JAWcuZEWvf0OsCZsqRLm1MGxkGZKhZ1AwSDF3pG7uIRD3FGxAPgAxJcWnGWG8 lbm [file] Nguyễn/EWSMBNggbhvTXA5cYlr5UDqap5GHOQcs2WAxtLTKhIM+gB1nEmJxryZV8XDaxVf4wX4Fqk1TTVvD [file] ICAgICAgICAgICAgICAgICAgICAgICAgICAgICAgIC FtBVFeZKQkVFXlTOYtYLUjXBPdKWVgNJKfYKIwBCQpHB2ZSXZmMXWmXTVsCZDeWYMgWXKkRVLdTIWuXO AgICAgICAgICAgICAgICAgICAgICAgICAgICAgICAgICAgICAgICAgICAgICAgICAgICAgICAgICAgIC AmLYJoPRIgHUTiQXZoKJ4EFSInYWAhNQHwNWPpDZIb ICAgICAgICAgICAgICAgICAgICAgICAgICAgICAgICAgICAgICAgICAgICAgICAgICAgICAgICAgICAg DREpCHMfLQPtCFHsMQMlQFLqSQViJHLtGW8VLPQdDCOaLWSwTFLyZQTeLQWvFMJiJBVyJRTyOVGzKGTm ICAgICAgICAgICAgICAgICAgICAgICAgICAgICAgIC ZjIXQmUVHmYKQgIZZmABAfUELdIEGhNIUjFXUqBMEgNXRaUF7SCNQeHONvQAHqTTUsAIJdKSEyHYIvOR AgICAgICAgICAgICAgICAgICAgICAgICAgICAgICAgICAgICAgICAgICAgICAgICAgICAgICAgICAgIC UaFWSbCLGoPZLwBWFfVSEqXT2VNKWcGPZjSADeWXQy ICAgICAgICAgICAgICAgICAgICAgICAgICAgICAgICAgICAgICAgICAgICAgICAgICAgICAgICAgICAg BZKwKTYbSXUoUSZcXOLsGKWaSRVkHXMuJOTuDD1VKZLrPWZyGSQcPNKoCFAkKSWoTDLgUYZkPQYlZQEb ICAgICAgICAgICAgICAgICAgICAgICAgICAgICAgIC ZyPKHjEKZbDKLqGOGkDQWgAOYwQQNoYDHeHSVmZGRpHOScORBqSX3THOTvJHQiGIUrDLIyLKReRLKbCH AgICAgICAgICAgICAgICAgICAgICAgICAgICAgICAgICAgICAgICAgICAgICAgICAgICAgICAgICAgIC KaHNPhBXEuHZUgSNVwTVOkFUKoGU3YYVDyOAJjHZLj ICAgICAgICAgICAgICAgICAgICAgICAgICAgICAgICAgICAgICAgICAgICAgICAgICAgICAgICAgICAg RNGtOLQcWWNoEFZlRQRpZAXkOWIeBEWqWRIuCNVhPS0JGRNmKJMfABNxYCYlLANeERYbRBAyDNDaZRMt ICAgICAgICAgICAgICAgICAgICAgICAgICAgICAgIC BaKQHsSJJuWABqRGKsNUQjHMKdRBCxTKGvBOFeDRDoOGPqKOOgEQXsOW0RCM98mNNtp2Y3ZPEsKW4kta c/Ya4HVTuuljSzeXHkGX7EIjNjRG2uma9NZmBuAS2iid6VCZhHDsDjQ3Q5zHKoEWUtSWXUDtTqI45oDF wfFz02EVjsOQWqVsKgGOp6Ds4NLqIaQ6ghCOVtSkY2 RCTyXlR5DLGjTyErELYiXDFpZRLrBKBMOSB1HYArAnAmAmWvFONsZTmfYGBTZN3BXzGpA5DdiL99TWyK Cj4+GJeclbVzCbxJHzB7GDFbn4NmQHm2VJ8IXGPcJbxsq6RyKfDhKTORSWakYQ3WTDE3RGZ7MSLpFw3X LVLqY626ouDsTC3VGg8QRzYfPZ2pjd6QKfBaKRSiTm rYFhw9MJhtOE1WvMPsREoHtb4brsVkaqVHi3HjowMdbIBMqXMyxQTzZNrmY9Uczuhalz8oPC4QGQM2SR ObBiQ9SpBuTfHzKUJ2CFAnPJ8nSMbcMH4WIEE0REwnUYFuEDEhJ4tAXmOqSONfDsKyqWrpAR2CQqQvO1 BhcmVudCAzNSAwIFINCj4+DQplbmRvYmoNCjYgMCBv EweIXja4EIveRD6WsCUoKI4Itz5rrPIqB9SrnLtdDSIfMAbudaVvWp5kQUGzHIinWWDtWU1aO2bsB0nv K0YtBWMKEpNzR5JuX9BkMpGxFBL8IHWgNMRtDTH6KBNMVkOnP8LzWOcwRiDqZDMZWO6UMszmWWLxFgxA SFtPM2BOQBcFFAELAc8XP90UC20YFVSDQJ1BO6oNLj spID4+SA1PEf9RChReXP7oyt0STwezKPThPelAQjk0DAbpCA3RzSIdL4WbeIWvx2hYTxEyR1UKECDxQM JzSe7JZWRiRiBjRQGrBXfgUA4cDKPiKADMuUajcyS7DP4YEU0ohfJfKF4JJaWfDk8nKs5VFzHzR6GcD1 RwPKFmKEIKZKufCE1IVBwoDR7vEM2Qw6YHqHAjmY1f il7IQTNtNYTsJozbyo0SCpckC5P6dMuqIGHlYwTcJCHSSZhdCU4JTVPnSOE8RQRkRQTuLQFISrAiP24q QB5HH8Dlh37aGmO7MFVcHaDeVRcrKS64jNipkwDqwRSuaGsxMP5PAn9+DQplbmRvYmoNCnhyZWYNCjAg SdaFMgGpDLHwIGJmUZNyGfA6FyHzZt7HWZDzKGOnYO TyVpIgCKFeWREqFNyyATYaPQPeUOI6EUFoNAKaPA2YUcXcAHVlNPRhZjVyLEKxBVPaze5TZIYsWNFaJC F7ZgQcIGEuFKDkBUyaLGJcYFWfAbT6RSZbBZSvDU3VCoNpSKUxBMH1MvgkOQWxTQWaxg2ZETKtNOTdUy U7LNOhQJYcBQHqMEnyCNYnDKS5XJV8OJOfKAWuWS1O AoXvUQTnNVinJcWcLSHjLWYthz2YYHSaQVImTPP7IJRaOICjJZRzVGjgCNPaUHMsTDPdLZEmUBXjZT7I FpFwKSTgPLEsCspeWBTbMUQqow6WUUCaOCVyOLQjYzQnXBYqYMRdQSwrTZEsVGO2OQU0RXPoJZKySR3O BeYoXUNmGYaqUsQcHJHdBPKvym8TGMSrGVGcSnb0Zl ZuGPUlYJLkEXjfVFEzFBPwASreCKIoWMHaPD9UCeLxYJMlPgL6IZNoRAOrZAWopw7WLFHtZMAsTBG1Sy HgUDBzDKXjJGmySHQzWHH5DFH2VQXjRBPdIJ4KOjIgXPPpEsLfTOPcCSUfKLWlth6BQXAfXVOtFwK7Ta NzXHPsGQPiTBeiKARpDLZ9GTM5XXNpLNBqYH9RBlLt XSAxIxc8GDzsIBHpUUMolk3CIIPbFBDoNsrsOzIyOKRuEZTtUWcxVEJzVOD2SqG4DZCfPEHgJG4CZpDp PTLnWdp7YVZmWAIoOMXqmn7JLKJbHGJeUKtpMDJtMXRcMXJsHZrjVWTrPRDaCGHeIGMwBNExSB7JCiVz YSIuOAWgDOQlNKHgHOAlql3TXZBdCRH3DIN7EUNxZM RlQKLwIFjpQWFuHXVaHtW4LKPlEHZxGK5ZSgVdTUEcSTL6CBTlBHRkEUIgrh9XJVFmSNR0MRfhCzGkGY XiGHBwPYepGOIqUIMyPGMbHZYbVJGvME8RLlOqKSQjMPY3GwLaXOVyZXWnrg3GJLOnSVN7GedwXkIpQD PcNWCyRLp5bwHqsMKeFHq1PP7PA9KsgoZaEarHKp6E x614JHF7OGTrFa5JV4fiGa0pIRYzBOCSYl8KRHr5SSg7UDNiSLF6YND2MVJ0GPt6KZUuGIagDtPtRVP8 YzI+JVitTzx7CCZ6NGz2JQq3MxIvGUrkOkR4TWN8FdBlThclYw5vHTVGBc6+DQpzdGFydHhyZWYNCjQ0 [id number] ID Date Data Source [id number] 09/03/2020 11:25:[address] [facility] Name Value Range Interpretation Code Description Data Neva rce(s) Supporting Document(s) Leukocytes [#/volume] in Blood by Automated count 8.6 10*3/uL 4-10 [facility] Erythrocytes [#/volume] in Blood by Automated count 4.10 10*6/uL 4.6- 6.1 L [facility] Hemoglobin [Mass/volume] in Blood 13.1 g/dL 13.5-18 L [facility] Hematocrit [Volume Fraction] of Blood by Automated count 37.2 % 4 1-53 L [facility] Erythrocyte mean corpuscular volume [Entitic volume] by Auto mated count 90.7 fL 80-96 [facility] Erythrocyte mean corpuscular hemoglobin [Entitic mass] by Automated count 32.0 pg 27-33 [facility] Erythrocyte mean corpuscular hemoglobin concentration [Mass/volume] by Automated count 35.3 g/dL [facility].0-[facility] width [Ratio] by Automated count 13.3 % 11.5-14.5 [facility] Platelets [#/volume] in Blood by Automated count 220 10*3/uL 150-400 [facility] Differential cell count method - Blood [facility] Neutrophils/100 leukocytes in Blood by Automated count 76 % [facility] Lymphocytes/100 leukocytes in Blood by Automated count 7 % [facility] Monocytes/100 leukocytes in Blood by Automated count 9 % [facility] Eosinophils/100 leukocytes in Blood by Automated count 7 % [facility] Basophils/100 leukocytes in Blood by Automated count 1 % [facility] Neutrophils [#/volume] in Blood by Automated count 6.53 10*3/uL 1.8-7 .0 [facility] Lymphocytes [#/volume] in Blood by Automated count 0.58 10*3/uL 1.2-4 .0 L [facility] Monocytes [#/volume] in Blood by Automated count 0.81 10*3/uL 0-0.8 H [facility] Eosinophils [#/volume] in Blood by Automated count 0.60 10*3/uL 0-0.5 H [facility] Basophils [#/volume] in Blood by Automated count 0.10 10*3/uL 0-0.2 [facility] Nucleated erythrocytes/100 leukocytes [Ratio] in Blood by Automated count 0 /100{WBCs} 0-0 [facility] ID Date Data Source [id number] 09/03/2020 12:06:[address] [facility] Name Value Range Interpretation Code Description Data Neva rce(s) Supporting Document(s) Thyrotropin [Units/volume] in Serum or Plasma 3.160 u[IU]/mL 0.270-4. 200 [facility] ID Date Data Source [id number] 09/03/2020 12:06:[address] [facility] Name Value Range Interpretation Code Description Data Neva rce(s) Supporting Document(s) Albumin [Mass/volume] in Serum or Plasma by Bromocresol green (BCG) dye binding method 4.2 g/dL 3.5-5.2 [facility] Bil[facility].total [Mass/volume] in Serum or Plasma 0.6 mg/dL <1.2 [facility] Calcium [Mass/volume] in Serum or Plasma 9.1 mg/dL 8.8-10.2 [facility] Chloride [Moles/volume] in Serum or Plasma 96 mmol/L 98-107 L [facility] Creatinine [Mass/volume] in Serum or Plasma 0.72 mg/dL 0.70-1.20 [facility] Glucose [Mass/volume] in Serum or Plasma 81 mg/dL 70-140 [facility] Alkaline phosphatase [Enzymatic activity/volume] in Serum or Plasma 80 U/L 40-129 [facility] Potassium [Moles/volume] in Serum or Plasma 4.0 mmol/L 3.4-5.1 [facility] Protein [Mass/volume] in Serum or Plasma 6.7 g/dL 6.4-8.3 [facility] Sodium [Moles/volume] in Serum or Plasma 131 mmol/L 136-145 L [facility] Aspartate aminotransferase [Enzymatic activity/volume] in Serum or Plasma 19 U/L <40 [facility] Urea nitrogen [Mass/volume] in Serum or Plasma 14 mg/dL 8-23 [facility] Osmolality of Serum or Plasma by calculation 271 mosm/kg 275-300 L [facility] Creatinine/Urea nitrogen [Mass Ratio] in Serum or Plasma 19 [facility] Bicarbonate [Moles/volume] in Serum 25 mmol/L 22-29 [facility] Alanine aminotransferase [Enzymatic activity/volume] in Seru m or Plasma 16 U/L <41 [facility] Anion gap 3 in Serum or Plasma 10 mmol/L 8-15 [facility] Glomerular filtration rate/1.73 sq M pre dicted among non-blacks [Volume Rate/Area] in Serum or Plasma by Creatinine-based formula (MDRD) >6 0 [facility] Glomerular filtration rate/1.73 sq M pre dicted among blacks [Volume Rate/Area] in Serum or Plasma by Creatinine-based formula (MDRD) >60 [facility] ID Date Data Source [id number] 08/24/2020 02:01:00 PM [facility] [address] [id number] [phone] NAME SEX PT STATUS ACCOUNT NUMBER ANTONIO ABRAMS REG REF [id number] ORDERING PHYSICIAN LOCATION MEDICAL RECORD NO. ESPERANZA FERGUSON [id number] ATTENDING PHYSICIAN DATE OF DATE OF EXAM/TIME Abdi Hong 1935 08/24/201129 TYPE / EXAM NM Cardiac Muga REASON FOR EXAM CARDIOMYOPATHY, UNSPECIFIED MUGA SCAN INDICATION: Chemotherapy, cardiomyopathy, status post lung cancer. PROCEDURE: Blood pooling images were performed after injection of 27.2 millicuries of magnesium pyrophosphate followed by 30.73 millicuries of sodium pertechnetate. Multiple gated images were obtained in SLOVAK projection. Ejection fraction calculated was 54%. FINDINGS: [...] rce(s) Supporting Document(s) ID Date Data Source [id number] 08/17/2020 09:06:03 AM T [facility] Name Value Range Interpretation Code Description Data Neva rce(s) Supporting Document(s) Progress Note [facility] ABVIFl9kOpSPVzFf68/ARQtxKFWsj6UyMOwlBGz8BVgtHOGlF6PbZTS8mD1tBCR0SSzJQmJnFbObSCIl lbm [file] SR [employer]+Ua7QASPrIAp1X5Y3KSVxTYr9L7XFI3MYMRYwUHllOIabWRKrTXt7Y8P9TEKfG6CBZ0Bqndokdn1+ QO3SD54BUJDuULd1W8H3gQYiH6M0hYxSmJV1YE2YTQ9QvLk3gONjtD6+ZD9AZ6MUSsEkREd4G5Q3hWLm P8X5uIqIlTH9DW8SXR9IgEPrNVWpnpSgCc3cG5KQKP oLFyVRSOJ4QV2ZvHOnMC0ZfCVDS6CbsTXoKd4uXGhpuFPyjH5mPh3dSJjxBW9NVhDCCYfATRM2WX2FcW AzQC9OxTRHB3IgiNEqOw1kBOkouRXyhb3+HP1JPIRyWz8RFy3+IIhgnxJvOjgJQhN1QGDnc6XgVSf6AE 5MMV3eeWnkWFR5Hm5GaCQ5mZXaK4tIBD4LmCAbA97o zDQhLXMoOc1YByA6zjVndT5FAT24sXGct3I5HNHvK4ipBHoub98rHRinSZoCWT9wWLGRZEenDWglSPO2 JiNigqyoFGWoXx9IYhGySAq5hG4feXY4RZQ2KmllwJZyMAfaPjOtZdBqNmG3bGpveyc1QAciUU8bDJxq czptZXRhLyc+OPqqJURnALXfSgcIUPWjpT3ackD6ot NzMFamrOQhKm2ti4i2GumcMs8cKk6iOIy0GuOkZwCzNHAdGs0wdY71BMdrulAkCm3ZNiXpNBI4O0JfWz pSREY+BZidJRrjcKo3xBAePNSzOl8GTDIjPKEuBCQpTJKkJDInILPzOXShDFWjRODoTRAhHEKpKCNdNR AgICAgICAgICAgICAgICAgICAgICAgICAgICAgICAg ITFiVIAcIXVwOQBeAUXcYUPsBJAgVAMvOPCbSMZdFH4PZCEiENIqOBSvMWTzDQOyPJRlSWEtYRNjNFFa ICAgICAgICAgICAgICAgICAgICAgICAgICAgICAgICAgICAgICAgICAgICAgICAgICAgICAgICAgICAg LXJgPGArFSBbSUZePW6VHJRnSDRmBCXeXJQmMUDvHX AgICAgICAgICAgICAgICAgICAgICAgICAgICAgICAgICAgICAgICAgICAgICAgICAgICAgICAgICAgIC UiLYMfLILdRERkLQYbFPHzEVZbTCDjZL6MDVHiWJMuGOXhIJWbYBCbYJUxTUDyRRCgKGLeAZFtBXVsIK AgICAgICAgICAgICAgICAgICAgICAgICAgICAgICAg CSSxZNWyRGGkETRuIXZuYIKpODKnDCHnUNAqMHAcWFKwHT8ZYOUrZCLiOEJwWECnILDlCZPxQHTbYXBf ICAgICAgICAgICAgICAgICAgICAgICAgICAgICAgICAgICAgICAgICAgICAgICAgICAgICAgICAgICAg QDOnGILhPBSkHLJtMUIxPM9LRGLuKLMdIGXbJBJrXE AgICAgICAgICAgICAgICAgICAgICAgICAgICAgICAgICAgICAgICAgICAgICAgICAgICAgICAgICAgIC YxFHKcZTHbBOMtMLBpXYBzGGGaOHUdZMTcGC9BMBUiTSYqQJFmUAUmRNSzZEEhLMQgZHVcXKLzMLMhFQ AgICAgICAgICAgICAgICAgICAgICAgICAgICAgICAg SCUpOPBbMQCjYMKdZZPrOIKvRYNoCSZsYAHeAFTxIXCpUZFkFH4CMDFoPZBfQIQpPFGxZHXlSTYmHRWz ICAgICAgICAgICAgICAgICAgICAgICAgICAgICAgICAgICAgICAgICAgICAgICAgICAgICAgICAgICAg MGRyOMWtEYJqBFHkHKTgYDZhDQ4JBWOzLZAjIQDmXC AgICAgICAgICAgICAgICAgICAgICAgICAgICAgICAgICAgICAgICAgICAgICAgICAgICAgICAgICAgIC GkQRCkSVJkQQZxPFBdUAAwTTXsBOLeJGKoDUXiBL4DKUOfZMXrSTImTVJrHTNpIGKzSGTtLBWlWMOnCU AgICAgICAgICAgICAgICAgICAgICAgICAgICAgICAg OXJvKYNkTWMtKORpQMToYGLkYVJuDBUnOTJbBEJvUFUnLDExTYIgDF7YFG07fPIkr4V2MGZdXI6hzlj/ Pf7MMDlztkWioLSgMD8PZzEsXV8vjw9QZwCoWT4sea4SSYgYYoGvP6O8uLNbTIAcTQSYKjObS13zNLym Lt37VAgkFQArZiXyLGd2Zx2XCbPmH8tjBTHhTmX0TF WgUxW9SUPqNzTxPLJeQBIfSVXrUHZVUID8FTAzWmOuIwSaUECuXJtoNQYWIIWrELXrNnNlObJmLNSiXB 9AKDCeR833dpGgFW7GWg7EXtCaRS3viz6WXuuvWSFfWafAKlx2AEunWP3FjFAqvKT5TDMxOYLPQvXdH7 gyh4JvEBLyMRVXUZcwFF2Pc1WqySGiPAx+Gq8ESE7e g9XdNIv3ZANnEF0tal7VZAkFZpIoA4KnsHmxTVVqb1wmBKYdMM0suTEiKMB5BDsxlnNodH3gJKGNbJUa IZBzMZ9BTYW3HXJlKiS9YgSsNeIqCVV4PBZnGD4eCSkdKR5JKIJ7ZXcfGUMjRXGiY5rFGdEtORKgVcHi lMwbQY4GQhViS0NynmUwmRBvMNAeOHBNQd2+DQplbm CcSoeXZqVaWGUyTbcJJni6YZgkHM0UoRIfNV4Htj1hmLKtZ2ZdxFfwJWAfWCxozhTfIu7tLXFpDXytFL GwDZ6kF9zxK3scE5TxNJCAKeLlN3WpP5MpHvLbPBM0VKQlEVZgQCC0JMRTVcUlO3YlGVvsDnViELTFNP 7VBmiiLWHzIccTBTqVD5IUSQpYZFRSBx5UN64BD37H CKZPSC6MG5uRVnjhVG8+ZE9JTs2MYcLiLS0dqc2NHIQpOEZiYvnUKqh1YNidCZ2UrAAaP5CsiRJti5cG RzRsB5VDJKF5TWMvBi5ZNYPnQkXsTMYiYRglQY0qBZObUIIHzBmqmvL3XF3CLN2aipBfDO9HUlMlTc5b Za5KNxMmQ8NqL0ZiUJZmHOLOPXuoZZ9PNImwYC7tBQ 0Gz4SYoHHqnK5hmc8HCTMeLVTpUiahtr5ZQrolS8N3cMohJJQhLjkdTTEQSTwoNX2ZWYFkIIR4ARCmOK SxWRRXQpBxB39fNI4OD4Ehq56tUuT7IWLkVmYsHSpyMC79dDxnbnPooHWeyEltLE7EXn5+DQplbmRvYm jSEfpgYXBEGmRuEDLJJgVjRAQgOTZxGNOoTbH9JyXv Zv2ISRWzPKZiTMKxBqVkSROcCHXpBCtcTHJoRUT1ZMViWBKgAMDmPT1MHyMzKAFpFAx8FydsWLHoKMWu ri1EYQRnHFElHKI3SvOuAVAdNIJjPVciUKYkEYGkNeC5HSKcZPRoBU8LUaDwBCMsDTaxRGGqRKRmYAAw mn8JYJQtOPYoUvE4ThFaOYSvZBGfHLueKCGeIFS6Xk YjEVYyXDDhKU8MYlSeHNQkZQs1ZLHbHMNoEUFuqd4FPBMdEOAtCyZiCCEqCHYuPARdMYkdVHXkXRPkTH WnVCJzTNBnKH4BBtNyBVYzGGR8TAXsWPDfYMPjil5HRFXdHHHsSTv1XpCpXSImQKBqELesQODpRSE4IU HqRALbYKMzZC5JEzRcTCQhNJsqWSiuWDDpCRInlu4V AODbEABnAdP2OuBwGLLgUATnXUdrPGRmSTQlJsnzXMRcSXNrEC3KZmJmQQPeJxS0OJPhLOSwLTNvkf9U VEJqQLQxDPI1DqBzIFQiOGBtNQyiRKRvDIK3ELM3LUEbXQZhGG7WQpZzDFTmYuBsFYEoSOPsKDDnki0K OYOwPQLlDSN9GCKbQPPlOUEqJZffMPVqAHWuXyZxIB SfDJOmQY9KRvZnPAAiUbW9QBRyYBVgTYBtjf6YERClXDFiAShmXGDbTCHuLYJaEWoxPLYxBBRdGJbbBC AkXFErND0SPlHvRHFyObOiFYTkHWHoCGVxkc7PKIUcBHGiAeT9RzWhTDAoXFWlWEzuEYUxFMXjQDCuER NcIETgAU2YZjHnOSZbWBF1EuDvIYUzIOArxl7HIBSq PZR7YMH2LITtHIUsLQUlSAgfUKErZXJ6SVK8ABLnLSXxTR6DEpUkPREsNBL0GRUfUVWuVNHxma0GABZz RZL2VAafYRMxDUDgYTMvRYbdGIGaQRD2GwZ6RWZcWLZfST0HKnWkFPWjZDU0AeRaCJQhYZOhlz8MWHHn GLM0ThPiNSNnXMLlBTJqWUnmFKEnFRF0LBY1JZInYW FoHF5LLxBjWCIdSKwqKgVkOCIoOWOvgi8FZGNaUXJ2EIB8DZKwHNMpLPYoNTvqZKYrDVC5UWM7ELUaEW WxFE4KIdLvMQplKPDWJvf1YJhkI1n2HAR4Vj3KC8Eon9MkKRWuMHNQWPjhEK2umcCbFPKpKo1RC9bJFp g1MnIdPfBpIAHxHUK3KMffNkMhJ6WeVwDcWHWuAoB7 JT6sXHbfOHZhUIMmAMHqDOC2UmXrUSUjOvTjOaSrHMJaGuGkIeLkDX3TVl3GUlR2FYO0cAHxSx5ZZCu1 CcSFHyYnBB1BTLn= ID Date Data Source [id number] 08/13/2020 12:50:16 PM EDT [facility] Name Value Range Interpretation Code Description Data Neva rce(s) Supporting Document(s) Leukocytes [#/volume] in Blood by Automated count 8.1 10*3/uL 4-10 [facility] Erythrocytes [#/volume] in Blood by Automated count 4.02 10*6/uL 4.6- 6.1 L [facility] Hemoglobin [Mass/volume] in Blood 13.0 g/dL 13.5-18 L [facility] Hematocrit [Volume Fraction] of Blood by Automated count 36.4 % 4 1-53 L [facility] Erythrocyte mean corpuscular volume [Entitic volume] by Auto mated count 90.5 fL 80-96 [facility] Erythrocyte mean corpuscular hemoglobin [Entitic mass] by Automated count 32.4 pg 27-33 [facility] Erythrocyte mean corpuscular hemoglobin concentration [Mass/volume] by Automated count 35.7 g/dL 32.0-36.0 [facility] width [Ratio] by Automated count 13.4 % 11.5-14.5 [facility] Platelets [#/volume] in Blood by Automated count 224 10*3/uL 150-400 [facility] Differential cell count method - Blood [facility] Neutrophils/100 leukocytes in Blood by Automated count 75 % [facility] Lymphocytes/100 leukocytes in Blood by Automated count 8 % [facility] Monocytes/100 leukocytes in Blood by Automated count 10 % [facility] Eosinophils/100 leukocytes in Blood by Automated count 6 % [facility] Basophils/100 leukocytes in Blood by Automated count 1 % [facility] Neutrophils [#/volume] in Blood by Automated count 6.12 10*3/uL 1.8-7 .0 [facility] Lymphocytes [#/volume] in Blood by Automated count 0.68 10*3/uL 1.2-4 .0 L [facility] Monocytes [#/volume] in Blood by Automated count 0.79 10*3/uL 0-0.8 [facility] Eosinophils [#/volume] in Blood by Automated count 0.48 10*3/uL 0-0.5 [facility] Basophils [#/volume] in Blood by Automated count 0.08 10*3/uL 0-0.2 [facility] Nucleated erythrocytes/100 leukocytes [Ratio] in Blood by Automated count 0 /100{WBCs} 0-0 [facility] ID Date Data Source [id number] 08/13/2020 01:26:58 PM EDT [facility] Name Value Range Interpretation Code Description Data Neva rce(s) Supporting Document(s) Albumin [Mass/volume] in Serum or Plasma by Bromocresol green (BCG) dye binding method 4.0 g/dL 3.5-5.2 [facility] Bil[facility].total [Mass/volume] in Serum or Plasma 0.4 mg/dL <1.2 [facility] Calcium [Mass/volume] in Serum or Plasma 9.2 mg/dL 8.8-10.2 [facility] Chloride [Moles/volume] in Serum or Plasma 95 mmol/L 98-107 L [facility] Creatinine [Mass/volume] in Serum or Plasma 0.76 mg/dL 0.70-1.20 [facility] Glucose [Mass/volume] in Serum or Plasma 89 mg/dL 70-140 [facility] Alkaline phosphatase [Enzymatic activity/volume] in Serum or Plasma 81 U/L 40-129 [facility] Potassium [Moles/volume] in Serum or Plasma 3.6 mmol/L 3.4-5.1 [facility] Protein [Mass/volume] in Serum or Plasma 6.6 g/dL 6.4-8.3 [facility] Sodium [Moles/volume] in Serum or Plasma 133 mmol/L 136-145 L [facility] Aspartate aminotransferase [Enzymatic activity/volume] in Serum or Plasma 16 U/L <40 [facility] Urea nitrogen [Mass/volume] in Serum or Plasma 10 mg/dL 8-23 [facility] Osmolality of Serum or Plasma by calculation 274 mosm/kg 275-300 L [facility] Creatinine/Urea nitrogen [Mass Ratio] in Serum or Plasma 13 [facility] Bicarbonate [Moles/volume] in Serum 28 mmol/L 22-29 [facility] Alanine aminotransferase [Enzymatic activity/volume] in Seru m or Plasma 15 U/L <41 [facility] Anion gap 3 in Serum or Plasma 9 mmol/L 8-15 [facility] Glomerular filtration rate/1.73 sq M pre dicted among non-blacks [Volume Rate/Area] in Serum or Plasma by Creatinine-based formula (MDRD) >6 0 [facility] Glomerular filtration rate/1.73 sq M pre dicted among blacks [Volume Rate/Area] in Serum or Plasma by Creatinine-based formula (MDRD) >60 [facility] ID Date Data Source [id number] 08/13/2020 01:26:58 PM EDT [facility] Name Value Range Interpretation Code Description Data Neva rce(s) Supporting Document(s) Thyrotropin [Units/volume] in Serum or Plasma 3.480 u[IU]/mL 0.270-4. 200 [facility] ID Date Data Source [id number] 08/02/2020 02:12:00 PM EDT [facility] Name Value Range Interpretation Code Description Data Neva rce(s) Supporting Document(s) Nuclear Lexiscan/Myoview Laboratory test result [facility] ID Date Data Source [id number] 07/26/2020 02:26:00 PM EDT [facility] Name Value Range Interpretation Code Description Data Neva rce(s) Supporting Document(s) Echocardiogram Laboratory test result [facility] ID Date Data Source [id number] 07/19/2020 03:58:41 PM EDT [facility] Name Value Range Interpretation Code Description Data Neva rce(s) Supporting Document(s) Progress Note [facility] [id number] lbm [file] [id number] ID Date Data Source [id number] 07/19/2020 03:53:00 PM EDT [facility] [...] [facility] ID Date Data Source [id number] 07/19/2020 03:24:00 PM EDT [facility] ([facility] [...] Date Data Source [id number] 07/19/2020 11:24:28 AM [facility] Name Value Range Interpretation Code Description Data Neva rce(s) Supporting Document(s) Leukocytes [#/volume] in Blood by Automated count 9.0 10*3/uL 4-10 [facility] Erythrocytes [#/volume] in Blood by Automated count 4.22 10*6/uL 4.6- 6.1 L [facility] Hemoglobin [Mass/volume] in Blood 13.7 g/dL 13.5-18 [facility] Hematocrit [Volume Fraction] of Blood by Automated count 38.6 % 4 1-53 L [facility] Erythrocyte mean corpuscular volume [Entitic volume] by Auto mated count 91.5 fL 80-96 [facility] Erythrocyte mean corpuscular hemoglobin [Entitic mass] by Automated count 32.3 pg 27-33 [facility] Erythrocyte mean corpuscular hemoglobin concentration [Mass/volume] by Autom[facility] 35.3 g/dL [facility].0[facility] width [Ratio] by Automated count 13.3 % 11.5-14.5 [facility] Platelets [#/volume] in Blood by Automated count 256 10*3/uL 150-400 [facility] Differential cell count method - Blood [facility] Neutrophils/100 leukocytes in Blood by Automated count 80 % [facility] Lymphocytes/100 leukocytes in Blood by Automated count 7 % [facility] Monocytes/100 leukocytes in Blood by Automated count 7 % [facility] Eosinophils/100 leukocytes in Blood by Automated count 5 % [facility] Basophils/100 leukocytes in Blood by Automated count 1 % [facility] Neutrophils [#/volume] in Blood by Automated count 7.22 10*3/uL 1.8-7 .0 H [facility] Lymphocytes [#/volume] in Blood by Automated count 0.66 10*3/uL 1.2-4 .0 L [facility] Monocytes [#/volume] in Blood by Automated count 0.64 10*3/uL 0-0.8 [facility] Eosinophils [#/volume] in Blood by Automated count 0.42 10*3/uL 0-0.5 [facility] Basophils [#/volume] in Blood by Automated count 0.08 10*3/uL 0-0.2 [facility] Nucleated erythrocytes/100 leukocytes [Ratio] in Blood by Automated count 0 /100{WBCs} 0-0 [facility] ID Date Data Source [id number] 07/19/2020 11:53:43 AM EDT [facility] Name Value Range Interpretation Code Description Data Neva rce(s) Supporting Document(s) Albumin [Mass/volume] in Serum or Plasma by Bromocresol green (BCG) dye binding method 4.2 g/dL 3.5-5.2 [facility] Bilirubin.total [Mass/volume] in Serum or Plasma 0.5 mg/dL <1.2 [facility] Calcium [Mass/volume] in Serum or Plasma 9.1 mg/dL 8.8-10.2 [facility] Chloride [Moles/volume] in Serum or Plasma 96 mmol/L 98-107 L [facility] Creatinine [Mass/volume] in Serum or Plasma 0.85 mg/dL 0.70-1.20 [facility] Glucose [Mass/volume] in Serum or Plasma 227 mg/dL 70-140 H [facility] Alkaline phosphatase [Enzymatic activity/volume] in Serum or Plasma 86 U/L 40-129 [facility] Potassium [Moles/volume] in Serum or Plasma 3.7 mmol/L 3.4-5.1 [facility] Protein [Mass/volume] in Serum or Plasma 6.7 g/dL 6.4-8.3 [facility] Sodium [Moles/volume] in Serum or Plasma 128 mmol/L 136-145 L [facility] Aspartate aminotransferase [Enzymatic activity/volume] in Serum or Plasma 15 U/L <40 [facility] Urea nitrogen [Mass/volume] in Serum or Plasma 8 mg/dL 8-23 [facility] Osmolality of Serum or Plasma by calculation 271 mosm/kg 275-300 L [facility] Creatinine/Urea nitrogen [Mass Ratio] in Serum or Plasma 9 [facility] Bicarbonate [Moles/volume] in Serum 23 mmol/L 22-29 [facility] Alanine aminotransferase [Enzymatic activity/volume] in Seru m or Plasma 9 U/L <41 [facility] Anion gap 3 in Serum or Plasma 9 mmol/L 8-15 [facility] Glomerular filtration rate/1.73 sq M pre dicted among non-blacks [Volume Rate/Area] in Serum or Plasma by Creatinine-based formula (MDRD) >6 0 [facility] Glomerular filtration rate/1.73 sq M pre dicted among blacks [Volume Rate/Area] in Serum or Plasma by Creatinine-based formula (MDRD) >60 [facility] ID Date Data Source [id number] 07/19/2020 11:53:43 AM EDT [facility] Name Value Range Interpretation Code Description Data Neva rce(s) Supporting Document(s) Thyrotropin [Units/volume] in Serum or Plasma 5.550 u[IU]/mL 0.270-4. 200 H [facility] ID Date Data Source [id number] 07/11/2020 04:47:56 PM EDT [facility] CT THORAX WITH CONTRAST [id number] RESUL TInterpreted by:Helene Durham MDINDICATION: History of [...] document has been electronically signed by SHELBI Durham on 07/11/2020 4:45 PM Name Value Range Interpretation Code Description Data Neva rce(s) Supporting Document(s) ID Date Data Source [id number] 07/11/2020 10:51:19 AM [facility] CT ABDOMEN PELVIS WITH CONTRAST [id number] RESULTInterpreted by:Karmen Solorio MDINDICATION: hx of [...] rce(s) Supporting Document(s) ID Date Data Source [id number] 06/24/2020 12:09:13 PM [facility] Name Value Range Interpretation Code Description [facility] Supporting Document(s) Progress Note [facility] IJDEZi1gUgFSQyAa24/HFHcwWBKwx9CcSBowUJi5HPuhOOEnV9RlUJX7fW2uORM0OVnMHsGoZuOoZCZ7 [facility] [file] ICAgICAgICAgICAgICAgICAgICAgICAgICAgICAgICAgICAgICAgICAgICAgICAgICAgICAgICAgICAg ICAgICAgICAgICAgICAgICAgICAgICAgICAgICAgDQogICAgICAgICAgICAgICAgICAgICAgICAgICAg ICAgICAgICAgICAgICAgICAgICAgICAgICAgICAgIC AgICAgICAgICAgICAgICAgICAgICAgICAgICAgICAgICAgICAgICAgDQogICAgICAgICAgICAgICAgIC AgICAgICAgICAgICAgICAgICAgICAgICAgICAgICAgICAgICAgICAgICAgICAgICAgICAgICAgICAgIC AgICAgICAgICAgICAgICAgICAgICAgDQogICAgICAg ICAgICAgICAgICAgICAgICAgICAgICAgICAgICAgICAgICAgICAgICAgICAgICAgICAgICAgICAgICAg ICAgICAgICAgICAgICAgICAgICAgICAgICAgICAgICAgDQogICAgICAgICAgICAgICAgICAgICAgICAg ICAgICAgICAgICAgICAgICAgICAgICAgICAgICAgIC AgICAgICAgICAgICAgICAgICAgICAgICAgICAgICAgICAgICAgICAgICAgDQogICAgICAgICAgICAgIC AgICAgICAgICAgICAgICAgICAgICAgICAgICAgICAgICAgICAgICAgICAgICAgICAgICAgICAgICAgIC AgICAgICAgICAgICAgICAgICAgICAgICAgDQogICAg ICAgICAgICAgICAgICAgICAgICAgICAgICAgICAgICAgICAgICAgICAgICAgICAgICAgICAgICAgICAg ICAgICAgICAgICAgICAgICAgICAgICAgICAgICAgICAgICAgDQogICAgICAgICAgICAgICAgICAgICAg ICAgICAgICAgICAgICAgICAgICAgICAgICAgICAgIC AgICAgICAgICAgICAgICAgICAgICAgICAgICAgICAgICAgICAgICAgICAgICAgDQogICAgICAgICAgIC AgICAgICAgICAgICAgICAgICAgICAgICAgICAgICAgICAgICAgICAgICAgICAgICAgICAgICAgICAgIC AgICAgICAgICAgICAgICAgICAgICAgICAgICAgDQog ICAgICAgICAgICAgICAgICAgICAgICAgICAgICAgICAgICAgICAgICAgICAgICAgICAgICAgICAgICAg VZMxEQBhPPCwVKDjOMCbPCOaZZEbKJFuDQAcTRRkVPWkXAIyOFJfGJw2B3gbDMQzOKTzQI6dWMp6Aq1+ AAsZQyRaVHP7hoFozZ7TNR5ep2QcKWnyWUFib1AiOU i8CN7LEBSrLNrcWU5DGOeact8SVZSqMFLmcSGIm7ziKcCfFLH3BJVmIvcuYQ9YMMQlQ0irchSwWVNbEG VRETuhTWFRWKPuVFBbXuOwTsFnJWUyREOoLIDQHRP0OOUvPyQrACHeTYVgXkVbHMEVKY2WLyVsK8KwkT 86XNqYEv2+KJizxeVtYcjDOwF7YALwx4RyWPr4FC6X BXTiZyzgr2UsMjefGRPSPNgfJU7ZTZK7DKK3CKTzVh3NBKDrE042txEqVA3EEg8JOtVqEP3pgm6SBlsj TFGoFbfOKmj3ECwnZG2ZrDUrZDvQnp4yymJrwdFGk3QjchNleYJHCaKnjZxxBSItMFrbYbR1RTYYNHWa qUK1BlVzAzRqGKLmOUoaJOUQZFiTRnGdF3Ror0CyIm L4STZgWfLuPLcbYSIiFxD7MA82uFjxXV6PWMQzLCAyCD79ZEL1UARuLn0DJl8SHbSaRR9xpc2VPlWfZX 8zvg5AFCoIKcLeC3Z7mEZwS9Isfn14UX3CeGT6vSDhIJ9SrO7jOS4Yn0OaNALcMiUoQEUdNKCiBPOwES NfIhUxWK6HAZBjQvDrhXViRKNgXWcmMTQcTzX7LiKr FE7WBWThXXM9MR5LGF0XQhcjB0KPPVpjeXvbNcHSRSJ/DSBNESYGHWrsJKJkL14TC2APYCeUItytPNuW GmklSg1fLSp+Ux3INM4sh5DnVCrgWDTyBJ0vdm2POIkHCyRuS7K9qUCdW5N2JNhrPi2OBJVkJXHbGbRf UPAQPVvbFR1WRQ0rrqY6XZ1FhOJwHTXeOKJpdDLeJT x4U82pvCScDCloOU3GVFL+Delbert+Hr7LYSCeATZlHNHjZbFvAQBAPhOfA3CdK6DEc9JhA7YnQF26tOjmwo KjADjnNH9UEK7qFWBcXUURVM3BuLYqiR0ewcSqRrIzYSCZFyYcI12bvTRbYZQqMYP5UEJsUl7JYYApL0 MwdoCpyDxinlFnLSAsENXNYB6FMDcrmnMgkKAetXpj CT92uKuhIL7YDk0DImEpUG2cvz7HuEWbYv8PFKU4WT3MUOReEFMdZMXnGFF9PHOwYsOtVCzdJHRdZWUc XNX5XNNeQVTqAX4GDvJbMTUiRVIjEhNkWDDrWALekf0UKWLbYKC5IcliBFKeZCKaUCEyQJtaKGRrAZRh ZBW8XSNsECQtJA9JNeOuOWBaVHL2VFYrUSQhYYJafb 1FQREyYCP8IhG5KkLkFJLiLGVoVNigSDHiKCIrHeXvKDVuVWCtVM3PDzZiRMDoEPf1AwmjPNKrHHSqtd 3YVQShVILdWSKePPJsLNOhJJIyYXmuNGWrSHSjSRO3RWRmJTXhEZ2YAiHiLYPlLGOrHmQrKELqAVAtfv 0TTYSmUCBjRRQjEJMsXOJnXNRuQAocFFWoIEP2CZQn OBKsAMTpYQ3TFqGkRCZpRZrsHCUhXKHtASAmyj9LGWScNPNfAOE1VuGhYCAnDLLpAYvmBCOsYNQvFUNh JGLwBKKjTX2XZbNyMNHbXdX0BKvdQXNdSLQzaa6PHBNhEOCjOaM3ZUTfVJPzBBMaGHceXZZlXER0ROp8 NFSbEESwYB1INvEjGDLyAxz8PPScCYVgPJOhod0GAU KuHWQoXFT4ZSBxRBTvCHXsYYqqRNRwYJM7QjP8MKJkXKVhJN5XMeZkEMWtMks4OLScNCAaSBFuxb8OGW KsZWCcKSRkAXOwBGCiNUSdHIfhXAJeAVDqUTp1AETfAMIbYQ4EQyPlDUXcIyYbXFVbOPKpGGZlbj6IZQ JeEOXdLMI9OEAiPJZuESWgCTxtUVJrGMPcAUL8MEVh JYApZK2WRhRzPDBkVYRfEjQuYAVlDMQuor4LDSOxBPH2CkC1AtBlFTDcRCLfDAzdEWHmEDHvSXgeKROz EFIlIW0DJsVgJUJiVJN6GjloQXAlQMIgyl4DZRTjVWJ7WBJ2LiQiNLPiHOGgBPrjPIRcPNZ2JOhsIHJe YWWqDE2DQzEuWHTdSHKzGUczBNEeZECnqs6KOLPoOR V4ING9IKSiFPVtDFMlAVteVCUzHAW4XAUmLLNyLDZgZZ1WRfQvJMDlYWmrYtDxYQPbPVTxjr5MGZYoNQ F2EqS2UBNvRDTqRHMgFZt0awMrnQMzCOn8GW6JZ7OovcNmMYBOMm9Kk857BTV6UVZzYs6WW3gjUu7rRU HaZFZVOh4BZFt3RsY6FVShRCP1CeDgYES6Zsi3AJRd HSC7F5MoEji5VXB+BCdgVfdiO5HuZXctXgXrIAMaOOoiPRFiXUNnWsWtOxAvQF4zCCXMKq6+DQpzdGFy xZapJGXKBpO1FOvmWJqmJAHFSu7G ID Date Data Source [id number] 06/21/2020 12:45:48 PM T [facility] Name Value Range Interpretation Code Description Data Neva rce(s) Supporting Document(s) Leukocytes [#/volume] in Blood by Automated count 7.8 10*3/uL 4-10 [facility] Erythrocytes [#/volume] in Blood by Automated count 4.12 10*6/uL 4.6- 6.1 L [facility] Hemoglobin [Mass/volume] in Blood 13.3 g/dL 13.5-18 L [facility] Hematocrit [Volume Fraction] of Blood by Automated count 37.6 % 4 1-53 L [facility] Erythrocyte mean corpuscular volume [Entitic volume] by Auto mated count 91.2 fL 80-96 [facility] Erythrocyte mean corpuscular hemoglobin [Entitic mass] by Automated count 32.3 pg 27-33 [facility] Erythrocyte mean corpuscular hemoglobin concentration [Mass/volume] by Automated count 35.4 g/dL 32.0-36.0 [facility] Erythrocyte distribution width [Ratio] by Automated count 13.6 % 11.5-14.5 [facility] Platelets [#/volume] in Blood by Automated count 242 10*3/uL 150-400 [facility] Differential cell count method - Blood [facility] Neutrophils/100 leukocytes in Blood by Automated count 71 % [facility] Lymphocytes/100 leukocytes in Blood by Automated count 10 % [facility] Monocytes/100 leukocytes in Blood by Automated count 10 % [facility] Eosinophils/100 leukocytes in Blood by Automated count 8 % [facility] Basophils/100 leukocytes in Blood by Automated count 1 % [facility] Neutrophils [#/volume] in Blood by Automated count 5.59 10*3/uL 1.8-7 .0 [facility] Lymphocytes [#/volume] in Blood by Automated count 0.77 10*3/uL 1.2-4 .0 L [facility] Monocytes [#/volume] in Blood by Automated count 0.78 10*3/uL 0-0.8 [facility] Eosinophils [#/volume] in Blood by Automated count 0.62 10*3/uL 0-0.5 H [facility] Basophils [#/volume] in Blood by Automated count 0.07 10*3/uL 0-0.2 [facility] Nucleated erythrocytes/100 leukocytes [Ratio] in Blood by Automated count 0 /100{WBCs} 0-0 [facility] ID Date Data Source [id number] 06/21/2020 01:43:37 PM EDT [facility] Name Value Range Interpretation Code Description Data Neva rce(s) Supporting Document(s) Albumin [Mass/volume] in Serum or Plasma by Bromocresol green (BCG) dye binding method 4.3 g/dL 3.5-5.2 [facility] Bilirubin.total [Mass/volume] in Serum or Plasma 0.5 mg/dL <1.2 [facility] Calcium [Mass/volume] in Serum or Plasma 9.1 mg/dL 8.8-10.2 [facility] Chloride [Moles/volume] in Serum or Plasma 99 mmol/L 98-107 [facility] Creatinine [Mass/volume] in Serum or Plasma 0.74 mg/dL 0.70-1.20 [facility] Glucose [Mass/volume] in Serum or Plasma 134 mg/dL 70-140 [facility] Alkaline phosphatase [Enzymatic activity/volume] in Serum or Plasma 82 U/L 40-129 [facility] Potassium [Moles/volume] in Serum or Plasma 3.8 mmol/L 3.4-5.1 [facility] Protein [Mass/volume] in Serum or Plasma 7.0 g/dL 6.4-8.3 [facility] Sodium [Moles/volume] in Serum or Plasma 136 mmol/L 136-145 [facility] Aspartate aminotransferase [Enzymatic activity/volume] in Serum or Plasma 16 U/L <40 [facility] Urea nitrogen [Mass/volume] in Serum or Plasma 11 mg/dL 8-23 [facility] Osmolality of Serum or Plasma by calculation 283 mosm/kg 275-300 [facility] Creatinine/Urea nitrogen [Mass Ratio] in Serum or Plasma 14 [facility] Bicarbonate [Moles/volume] in Serum 26 mmol/L 22-29 [facility] Alanine aminotransferase [Enzymatic activity/volume] in Seru m or Plasma 10 U/L <41 [facility] Anion gap 3 in Serum or Plasma 11 mmol/L 8-15 [facility] Glomerular filtration rate/1.73 sq M pre dicted among non-blacks [Volume Rate/Area] in Serum or Plasma by Creatinine-based formula (MDRD) >6 0 [facility] Glomerular filtration rate/1.73 sq M pre dicted among blacks [Volume Rate/Area] in Serum or Plasma by Creatinine-based formula (MDRD) >60 [facility] ID Date Data Source [id number] 06/21/2020 02:00:17 PM EDT [facility] Name Value Range Interpretation Code Description Data Neva rce(s) Supporting Document(s) Thyrotropin [Units/volume] in Serum or Plasma 2.430 u[IU]/mL 0.270-4. 200 [facility] ID Date Data Source [id number] 06/05/2020 09:42:00 AM EDT [facility]) Name Value Range Interpretation Code Description Data Neva rce(s) Supporting Document(s) Color of Urine Laboratory test result [facility] ([facility]) Spec [place] 1.000 [facility] ([facility]) Appearance of Urine Laboratory test result [facility] ([facility]) pH of Urine by Test strip 7 [facility] NT ([facility]) Nitrate [Presence] in Urine Laboratory test result [facility] ([facility]) Leukocytes Laboratory test result [facility] ([facility]) Ketones [Presence] in Urine by Test strip Laboratory test result [facility] ([facility]) Inhouse Glucose Laboratory test result [facility] ([facility]) Protein [Presence] in Urine by Test strip Laboratory test result [facility] ([facility]) Bilirubin.total [Presence] in Urine by Test strip Laboratory test res ult [facility] ([facility]) Blood type and Indirect antibody screen panel - Blood Laboratory test result [facility] ([facility]) Urobilinogen Laboratory test result [facility] ([facility]) ID Date Data Source [id number] 06/01/2020 08:48:54 AM T [facility] Name Value Range Interpretation Code Description Data Neva rce(s) Supporting Document(s) Progress Note [facility] [id number] lbm [file] [id number] ID Date Data Source [id number] 05/31/2020 01:42:27 PM [facility] Name Value Range Interpretation Code Description Data Neva rce(s) Supporting Document(s) Glucose [Mass/volume] in Capillary blood by Glucometer 83 mg/dL 70- 140 [facility] ID Date Data Source [id number] 05/31/2020 01:42:27 PM [facility] Value Range Interpretation Code Description Data Neva rce(s) Supporting Document(s) Glucose [Mass/volume] in Capillary blood by Glucometer 72 mg/dL 70- 140 [facility] ID Date Data Source [id number] 05/31/2020 12:32:01 PM [facility] Value Range Interpretation Code Description Data Neva rce(s) Supporting Document(s) Leukocytes [#/volume] in Blood by Automated count 9.3 10*3/uL 4-10 [facility] Erythrocytes [#/volume] in Blood by Automated count 3.92 10*6/uL 4.6- 6.1 L [facility] Hemoglobin [Mass/volume] in Blood 12.6 g/dL 13.5-18 L [facility] Hematocrit [Volume Fraction] of Blood by Automated count 36.3 % 4 1-53 L [facility] Erythrocyte mean corpuscular volume [Entitic volume] by Auto mated count 92.7 fL 80-96 [facility] Erythrocyte mean corpuscular hemoglobin [Entitic mass] by Automated count 32.2 pg 27-33 [facility] Erythrocyte mean corpuscular hemoglobin concentration [Mass/volume] by Automated count 34.8 g/dL 32.0-36.0 [facility] width [Ratio] by Automated count 13.4 % 11.5-14.5 [facility] Platelets [#/volume] in Blood by Automated count 217 10*3/uL 150-400 [facility] Differential cell count method - Blood [facility] Neutrophils/100 leukocytes in Blood by Automated count 77 % [facility] Lymphocytes/100 leukocytes in Blood by Automated count 7 % [facility] Monocytes/100 leukocytes in Blood by Automated count 10 % [facility] Eosinophils/100 leukocytes in Blood by Automated count 5 % [facility] Basophils/100 leukocytes in Blood by Automated count 1 % [facility] Neutrophils [#/volume] in Blood by Automated count 7.17 10*3/uL 1.8-7 .0 H [facility] Lymphocytes [#/volume] in Blood by Automated count 0.65 10*3/uL 1.2-4 .0 L [facility] Monocytes [#/volume] in Blood by Automated count 0.95 10*3/uL 0-0.8 H [facility] Eosinophils [#/volume] in Blood by Automated count 0.44 10*3/uL 0-0.5 [facility] Basophils [#/volume] in Blood by Automated count 0.07 10*3/uL 0-0.2 [facility] Nucleated erythrocytes/100 leukocytes [Ratio] in Blood by Automated count 0 /100{WBCs} 0-0 [facility] ID Date Data Source [id number] 05/31/2020 01:08:05 PM [facility] Name Value Range Interpretation Code Description Data Neva rce(s) Supporting Document(s) Albumin [Mass/volume] in Serum or Plasma by Bromocresol green (BCG) dye binding method 4.1 g/dL 3.5-5.2 [facility] Bil[facility].total [Mass/volume] in Serum or Plasma 0.4 mg/dL <1.2 [facility] Calcium [Mass/volume] in Serum or Plasma 8.7 mg/dL 8.8-10.2 L [facility] Chloride [Moles/volume] in Serum or Plasma 96 mmol/L 98-107 L [facility] Creatinine [Mass/volume] in Serum or Plasma 0.68 mg/dL 0.70-1.20 L [facility] Glucose [Mass/volume] in Serum or Plasma 67 mg/dL 70-140 L [facility] Alkaline phosphatase [Enzymatic activity/volume] in Serum or Plasma 81 U/L 40-129 [facility] Potassium [Moles/volume] in Serum or Plasma 3.7 mmol/L 3.4-5.1 [facility] Protein [Mass/volume] in Serum or Plasma 6.5 g/dL 6.4-8.3 [facility] Sodium [Moles/volume] in Serum or Plasma 133 mmol/L 136-145 L [facility] Aspartate aminotransferase [Enzymatic activity/volume] in Serum or Plasma 17 U/L <40 [facility] Urea nitrogen [Mass/volume] in Serum or Plasma 11 mg/dL 8-23 [facility] Osmolality of Serum or Plasma by calculation 274 mosm/kg 275-300 L [facility] Creatinine/Urea nitrogen [Mass Ratio] in Serum or Plasma 16 [facility] Bicarbonate [Moles/volume] in Serum 29 mmol/L 22-29 [facility] Alanine aminotransferase [Enzymatic activity/volume] in Seru m or Plasma 12 U/L <41 [facility] Anion gap 3 in Serum or Plasma 8 mmol/L 8-15 [facility] Glomerular filtration rate/1.73 sq M pre dicted among non-blacks [Volume Rate/Area] in Serum or Plasma by Creatinine-based formula (MDRD) >6 0 [facility] Glomerular filtration rate/1.73 sq M pre dicted among blacks [Volume Rate/Area] in Serum or Plasma by Creatinine-based formula (MDRD) >60 [facility] ID Date Data Source [id number] 05/31/2020 01:08:05 PM EDT [facility] Name Value Range Interpretation Code Description Data Neva rce(s) Supporting Document(s) Thyrotropin [Units/volume] in Serum or Plasma 3.330 u[IU]/mL 0.270-4. 200 [facility] ID Date Data Source [id number] 05/11/2020 02:41:00 [place] [address] OPERATIVE SUMMARYNAME: JOSE ALBERTO Valencia DATE OF : 1935TTENDING PHYS: JOE BAIRD MD DATE: 05/11/20 MR#: [id number] PROCEDURE: 05/11/2020PREOPERATIVE DIAGNOSIS:1. Urinary retention.2. Incomplete bladder emptying.POST-OPERATIVE DIAGNOSIS:1. Urinary retention.2. Incomplete bladder emptying.PROCEDURE PERFORMED:Flexible diagnostic cystoscopy.ATTENDING SURGEON: Dr. Joe Baird.PHYSICIAN LINOTYPIST: ESPERANZA Leon.ANESTHESIA: Local.ESTIMATED BLOOD LOSS: Minimal.COMPLICATIONS: None.DRAINS: [...] cause of his obstruction.DETAILS OF PROCEDURE: [address] [place] [address] OPERATIVE SUMMARYNAME: JOSE ALBERTO Valencia DATE OF : 1935TTENDING PHYS: JOE BAIRD MD DATE: 05/11/20 MR#: [id number] a detailed informed consent was obtained from [...] rce(s) Supporting Document(s) ID Date Data Source [id number] 05/11/2020 08:39:46 AM EDT [facility] Name Value Range Interpretation Code Description Data Neva rce(s) Supporting Document(s) Progress Note [facility] [id number] lbm [file] [id number]= ID Date Data Source [id number] 05/10/2020 12:23:56 PM [facility] Name Value Range Interpretation Code Description Data Neva rce(s) Supporting Document(s) Leukocytes [#/volume] in Blood by Automated count 8.0 10*3/uL 4-10 [facility] Erythrocytes [#/volume] in Blood by Automated count 4.36 10*6/uL 4.6- 6.1 L [facility] Hemoglobin [Mass/volume] in Blood 13.9 g/dL 13.5-18 [facility] Hematocrit [Volume Fraction] of Blood by Automated count 40.1 % 4 1-53 L [facility] Erythrocyte mean corpuscular volume [Entitic volume] by Auto mated count 91.9 fL 80-96 [facility] Erythrocyte mean corpuscular hemoglobin [Entitic mass] by Automated count 31.9 pg 27-33 [facility] Erythrocyte mean corpuscular hemoglobin concentration [Mass/volume] by Automated count 34.7 g/dL 32.0-36.0 [facility] distribution width [Ratio] by Automated count 14.0 % 11.5-14.5 [facility] Platelets [#/volume] in Blood by Automated count 251 10*3/uL 150-400 [facility] Differential cell count method - Blood [facility] Neutrophils/100 leukocytes in Blood by Automated count 74 % [facility] Lymphocytes/100 leukocytes in Blood by Automated count 9 % [facility] Monocytes/100 leukocytes in Blood by Automated count 12 % [facility] Eosinophils/100 leukocytes in Blood by Automated count 4 % [facility] Basophils/100 leukocytes in Blood by Automated count 1 % [facility] Neutrophils [#/volume] in Blood by Automated count 5.93 10*3/uL 1.8-7 .0 [facility] Lymphocytes [#/volume] in Blood by Automated count 0.69 10*3/uL 1.2-4 .0 L [facility] Monocytes [#/volume] in Blood by Automated count 0.91 10*3/uL 0-0.8 H [facility] Eosinophils [#/volume] in Blood by Automated count 0.35 10*3/uL 0-0.5 [facility] Basophils [#/volume] in Blood by Automated count 0.09 10*3/uL 0-0.2 [facility] Nucleated erythrocytes/100 leukocytes [Ratio] in Blood by Automated count 0 /100{WBCs} 0-0 [facility] ID Date Data Source [id number] 05/10/2020 01:00:04 PM EDT [facility] Name Value Range Interpretation Code Description Data Neva rce(s) Supporting Document(s) Albumin [Mass/volume] in Serum or Plasma by Bromocresol green (BCG) dye binding method 4.2 g/dL 3.5-5.2 [facility] Bil[facility].total [Mass/volume] in Serum or Plasma 0.4 mg/dL <1.2 [facility] Calcium [Mass/volume] in Serum or Plasma 9.2 mg/dL 8.8-10.2 [facility] Chloride [Moles/volume] in Serum or Plasma 98 mmol/L 98-107 [facility] Creatinine [Mass/volume] in Serum or Plasma 0.79 mg/dL 0.70-1.20 [facility] Glucose [Mass/volume] in Serum or Plasma 105 mg/dL 70-140 [facility] Alkaline phosphatase [Enzymatic activity/volume] in Serum or Plasma 87 U/L 40-129 [facility] Potassium [Moles/volume] in Serum or Plasma 3.8 mmol/L 3.4-5.1 [facility] Protein [Mass/volume] in Serum or Plasma 6.9 g/dL 6.4-8.3 [facility] Sodium [Moles/volume] in Serum or Plasma 132 mmol/L 136-145 L [facility] Aspartate aminotransferase [Enzymatic activity/volume] in Serum or Plasma 17 U/L <40 [facility] Urea nitrogen [Mass/volume] in Serum or Plasma 10 mg/dL 8-23 [facility] Osmolality of Serum or Plasma by calculation 272 mosm/kg 275-300 L [facility] Creatinine/Urea nitrogen [Mass Ratio] in Serum or Plasma 12 [facility] Bicarbonate [Moles/volume] in Serum 27 mmol/L 22-29 [facility] Alanine aminotransferase [Enzymatic activity/volume] in Seru m or Plasma 10 U/L <41 [facility] Anion gap 3 in Serum or Plasma 7 mmol/L 8-15 L [facility] Glomerular filtration rate/1.73 sq M pre dicted among non-blacks [Volume Rate/Area] in Serum or Plasma by Creatinine-based formula (MDRD) >6 0 [facility] Glomerular filtration rate/1.73 sq M pre dicted among blacks [Volume Rate/Area] in Serum or Plasma by Creatinine-based formula (MDRD) >60 [facility] ID Date Data Source [id number] 05/10/2020 01:00:04 PM EDT [facility] Name Value Range Interpretation Code Description Data Neva rce(s) Supporting Document(s) Thyrotropin [Units/volume] in Serum or Plasma 3.770 u[IU]/mL 0.270-4. 200 [facility] ID Date Data Source [id number] 05/07/2020 10:00:00 AM EDT [facility] Name Value Range Interpretation Code Description Data Neva rce(s) Supporting Document(s) SARS coronavirus 2 RNA [facility] This lab was ordered by [facility] and reported by [facility]. ID Date Data Source [id number] 05/09/2020 02:09:00 PM EDT [facility] Name Value Range Interpretation Code Description Data Neva rce(s) Supporting Document(s) SARS-CoV-2, MELODIE Not Detected Not Detected [facility] This test was developed and its performa nce characteristics determinedby [employer]. This test has not been FDA cleared [...] in this assay. ID Date Data Source [id number] 05/07/2020 10:00:00 AM EDT [place] ([facility]) Name Value Range Interpretation Code Description Data Neva rce(s) Supporting Document(s) Reported Physicians See Note Reported Physici ans [place] ([facility]) Note: Reported Physicians:Ordering: Darek JOVELending: Soraya GLASSulting: Mariama PHAM To: Makenna Glass ID Date Data Source [id number] 05/07/2020 10:00:00 AM EDT [place] ([facility]) Name Value Range Interpretation Code Description Data Neva rce(s) Supporting Document(s) SARS-CoV-2, MELODIE Not Detected SARS-CoV-2, MELODIE [facility] ([facility]) Note: This test was developed and its pe rformance characteristics determinedby [employer]. 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 [file] [id number]== ID Date Data Source [id number] 04/19/2020 01:13:31 PM EDT [facility] Name Value Range Interpretation Code Description Data Neva e(s) Supporting Document(s) Leukocytes [#/volume] in Blood by Automated count 7.2 10*3/uL 4-10 [facility] Erythrocytes [#/volume] in Blood by Automated count 4.20 10*6/uL 4.6- 6.1 L [facility] Hemoglobin [Mass/volume] in Blood 13.5 g/dL 13.5-18 [facility] Hematocrit [Volume Fraction] of Blood by Automated count 38.5 % 4 1-53 L [facility] Erythrocyte mean corpuscular volume [Entitic volume] by Auto mated count 91.8 fL 80-96 [facility] Erythrocyte mean corpuscular hemoglobin [Entitic mass] by Automated count 32.2 pg 27-33 [facility] Erythrocyte mean corpuscular hemoglobin concentration [Mass/volume] by Automated count 35.1 g/dL 32.0-36.0 [facility] width [Ratio] by Automated count 14.7 % 11.5-14.5 H [facility] Platelets [#/volume] in Blood by Automated count 215 10*3/uL 150-400 [facility] Differential cell count method - Blood [facility] Neutrophils/100 leukocytes in Blood by Automated count 73 % [facility] Lymphocytes/100 leukocytes in Blood by Automated count 10 % [facility] Monocytes/100 leukocytes in Blood by Automated count 10 % [facility] Eosinophils/100 leukocytes in Blood by Automated count 5 % [facility] Basophils/100 leukocytes in Blood by Automated count 2 % [facility] Neutrophils [#/volume] in Blood by Automated count 5.29 10*3/uL 1.8-7 .0 [facility] Lymphocytes [#/volume] in Blood by Automated count 0.69 10*3/uL 1.2-4 .0 L [facility] Monocytes [#/volume] in Blood by Automated count 0.75 10*3/uL 0-0.8 [facility] Eosinophils [#/volume] in Blood by Automated count 0.38 10*3/uL 0-0.5 [facility] Basophils [#/volume] in Blood by Automated count 0.11 10*3/uL 0-0.2 [facility] Nucleated erythrocytes/100 leukocytes [Ratio] in Blood by Automated count 0 /100{WBCs} 0-0 [facility] ID Date Data Source [id number] 04/19/2020 01:27:29 PM EDT [facility] Name Value Range Interpretation Code Description Data Neva rce(s) Supporting Document(s) Albumin [Mass/volume] in Serum or Plasma by Bromocresol green (BCG) dye binding method 4.2 g[facility].5[facility].2 [facility] Bil[facility].total [Mass/volume] in Serum or Plasma 0.4 mg/dL <1.2 [facility] Calcium [Mass/volume] in Serum or Plasma 9.1 mg/dL 8.8-10.2 [facility] Chloride [Moles/volume] in Serum or Plasma 93 mmol/L 98-107 L [facility] Creatinine [Mass/volume] in Serum or Plasma 0.69 mg/dL 0.70-1.20 L [facility] Glucose [Mass/volume] in Serum or Plasma 127 mg/dL 70-140 [facility] Alkaline phosphatase [Enzymatic activity/volume] in Serum or Plasma 86 U/L 40-129 [facility] Potassium [Moles/volume] in Serum or Plasma 3.7 mmol/L 3.4-5.1 [facility] Protein [Mass/volume] in Serum or Plasma 6.7 g/dL 6.4-8.3 [facility] Sodium [Moles/volume] in Serum or Plasma 126 mmol/L 136-145 L [facility] Aspartate aminotransferase [Enzymatic activity/volume] in Serum or Plasma 17 U/L <40 [facility] Urea nitrogen [Mass/volume] in Serum or Plasma 8 mg/dL 8-23 [facility] Osmolality of Serum or Plasma by calculation 261 mosm/kg 275-300 L [facility] Creatinine/Urea nitrogen [Mass Ratio] in Serum or Plasma 11 [facility] Bicarbonate [Moles/volume] in Serum 25 mmol/L 22-29 [facility] Alanine aminotransferase [Enzymatic activity/volume] in Seru m or Plasma 11 U/L <41 [facility] Anion gap 3 in Serum or Plasma 8 mmol/L 8-15 [facility] Glomerular filtration rate/1.73 sq M pre dicted among non-blacks [Volume Rate/Area] in Serum or Plasma by Creatinine-based formula (MDRD) >6 0 [facility] Glomerular filtration rate/1.73 sq M pre dicted among blacks [Volume Rate/Area] in Serum or Plasma by Creatinine-based formula (MDRD) >60 [facility] ID Date Data Source 04/19/2020 01:27:29 PM [facility] Value Range Interpretation Code Description Data Neva rce(s) Supporting Document(s) Iron [Mass/volume] in Serum or Plasma 90 ug/dl 59-158 [facility] Transferrin [Mass/volume] in Serum or Plasma 219 mg/dL 200-360 [facility] Iron binding capacity [Mass/volume] in Serum or Plasma 304 ug/dl 228 -428 [facility] Iron saturation [Mass Fraction] in Serum or Plasma 30.0 % 20-55 [facility] ID Date Data Source 04/19/2020 01:29:19 PM [facility] Value Range Interpretation Code Description Data Neva rce(s) Supporting Document(s) Triiodothyronine (T3) [Mass/volume] in Serum or Plasma 86.30 ng/ dL 80.00-200.00 [facility] ID Date Data Source 04/19/2020 01:39:09 PM [facility] Value Range Interpretation Code Description Data Neva rce(s) Supporting Document(s) Ferritin [Mass/volume] in Serum or Plasma 151 ng/ml 30-400 [facility] ID Date Data Source 04/19/2020 01:39:09 PM [facility] Value Range Interpretation Code Description Data Neva rce(s) Supporting Document(s) Thyroxine (T4) free [Mass/volume] in Serum or Plasma 1.41 ng/dL 0.93- 1.70 [facility] ID Date Data Source 04/19/2020 01:39:09 PM [facility] Value Range Interpretation Code Description Data Neva rce(s) Supporting Document(s) Thyrotropin [Units/volume] in Serum or Plasma 4.180 u[IU]/mL 0.270-4. 200 [facility] ID Date Data Source [id number] 03/30/2020 08:53:55 AM EDT [facility] Name Value Range Interpretation Code Description Data Neva rce(s) Supporting Document(s) Progress Note [facility] [id number] lbm [file] [id number]/steamfitter apprentice+MxIj4s19 [file] [id number]= ID Date Data Source [id number] 03/29/2020 10:52:46 AM EDT [facility] Name Value Range Interpretation Code Description Data Neva e(s) Supporting Document(s) Leukocytes [#/volume] in Blood by Automated count 8.3 10*3/uL 4-10 [facility] Erythrocytes [#/volume] in Blood by Automated count 4.23 10*6/uL 4.6- 6.1 L [facility] Hemoglobin [Mass/volume] in Blood 13.4 g/dL 13.5-18 L [facility] Hematocrit [Volume Fraction] of Blood by Automated count 38.6 % 4 1-53 L [facility] Erythrocyte mean corpuscular volume [Entitic volume] by Auto mated count 91.3 fL 80-96 [facility] Erythrocyte mean corpuscular hemoglobin [Entitic mass] by Automated count 31.7 pg 27-33 [facility] Erythrocyte mean corpuscular hemoglobin concentration [Mass/volume] by Automated count 34.7 g/dL 32.0-36.0 [facility] E[facility] distribution width [Ratio] by Automated count 16.2 % 11.5-14.5 H [facility] Platelets [#/volume] in Blood by Automated count 235 10*3/uL 150-400 [facility] Differential cell count method - Blood [facility] Neutrophils/100 leukocytes in Blood by Automated count 76 % [facility] Lymphocytes/100 leukocytes in Blood by Automated count 8 % [facility] Monocytes/100 leukocytes in Blood by Automated count 10 % [facility] Eosinophils/100 leukocytes in Blood by Automated count 5 % [facility] Basophils/100 leukocytes in Blood by Automated count 1 % [facility] Neutrophils [#/volume] in Blood by Automated count 6.28 10*3/uL 1.8-7 .0 [facility] Lymphocytes [#/volume] in Blood by Automated count 0.67 10*3/uL 1.2-4 .0 L [facility] Monocytes [#/volume] in Blood by Automated count 0.84 10*3/uL 0-0.8 H [facility] Eosinophils [#/volume] in Blood by Automated count 0.45 10*3/uL 0-0.5 [facility] Basophils [#/volume] in Blood by Automated count 0.11 10*3/uL 0-0.2 [facility] Nucleated erythrocytes/100 leukocytes [Ratio] in Blood by Automated count 0 /100{WBCs} 0-0 [facility] ID Date Data Source [id number] 03/29/2020 11:22:56 AM EDT [facility] Name Value Range Interpretation Code Description Data Neva rce(s) Supporting Document(s) Albumin [Mass/volume] in Serum or Plasma by Bromocresol green (BCG) dye binding method 4.3 g/dL 3.5-5.2 [facility] Bilirubin.total [Mass/volume] in Serum or Plasma 0.4 mg/dL <1.2 [facility] Calcium [Mass/volume] in Serum or Plasma 8.9 mg/dL 8.8-10.2 [facility] Chloride [Moles/volume] in Serum or Plasma 95 mmol/L 98-107 L [facility] Creatinine [Mass/volume] in Serum or Plasma 0.77 mg/dL 0.70-1.20 [facility] Glucose [Mass/volume] in Serum or Plasma 148 mg/dL 70-140 H [facility] Alkaline phosphatase [Enzymatic activity/volume] in Serum or Plasma 98 U/L 40-129 [facility] Potassium [Moles/volume] in Serum or Plasma 4.0 mmol/L 3.4-5.1 [facility] Protein [Mass/volume] in Serum or Plasma 7.0 g/dL 6.4-8.3 [facility] Sodium [Moles/volume] in Serum or Plasma 132 mmol/L 136-145 L [facility] Aspartate aminotransferase [Enzymatic activity/volume] in Serum or Plasma 15 U/L <40 [facility] Urea nitrogen [Mass/volume] in Serum or Plasma 7 mg/dL 8-23 L [facility] Osmolality of Serum or Plasma by calculation 275 mosm/kg 275-300 [facility] Creatinine/Urea nitrogen [Mass Ratio] in Serum or Plasma 9 [facility] Bicarbonate [Moles/volume] in Serum 25 mmol/L 22-29 [facility] Alanine aminotransferase [Enzymatic activity/volume] in Seru m or Plasma 9 U/L <41 [facility] Anion gap 3 in Serum or Plasma 12 mmol/L 8-15 [facility] Albumin/Globulin [Mass Ratio] in Serum or Plasma 1.6 [facility] Glomerular filtration rate/1.73 sq M pre dicted among non-blacks [Volume Rate/Area] in Serum or Plasma by Creatinine-based formula (MDRD) >6 0 [facility] Glomerular filtration rate/1.73 sq M pre dicted among blacks [Volume Rate/Area] in Serum or Plasma by Creatinine-based formula (MDRD) >60 [facility] ID Date Data Source [id number] 03/29/2020 11:22:56 AM [facility] Name Value Range Interpretation Code Description Data Neva rce(s) Supporting Document(s) Thyrotropin [Units/volume] in Serum or Plasma 3.000 u[IU]/mL 0.270-4. 200 [facility] ID Date Data Source [id number] 03/29/2020 11:57:57 AM [facility] Value Range Interpretation Code Description Data Neva rce(s) Supporting Document(s) Ferritin [Mass/volume] in Serum or Plasma 338 ng/ml 30-400 [facility] ID Date Data Source [id number] 03/29/2020 11:57:57 AM [facility] Value Range Interpretation Code Description Data Neva rce(s) Supporting Document(s) Iron [Mass/volume] in Serum or Plasma 86 ug/dl 59-158 [facility] Transferrin [Mass/volume] in Serum or Plasma 218 mg/dL 200-360 [facility] Iron binding capacity [Mass/volume] in Serum or Plasma 303 ug/dl 228 -428 [facility] Iron saturation [Mass Fraction] in Serum or Plasma 28.0 % 20-55 [facility] ID Date Data Source [id number] 03/27/2020 09:45:02 AM EDT [facility] CT THORAX WITH CONTRAST [id number] RESUL TInterpreted by:David Jerry MDINDICATION: hx of [...] rce(s) Supporting Document(s) ID Date Data Source [id number] 03/27/2020 09:10:02 AM EDT [facility] CT ABDOMEN PELVIS WITH CONTRAST [id number] AL RESULTInterpreted by:Chris Priscilla Clark MDINDICATION: 85-year-old [...] rce(s) Supporting Document(s) ID Date Data Source [id number] 03/20/2020 01:56:00 PM EDT [facility] ([facility]) Name Value Range Interpretation Code Description Data Neva rce(s) Supporting Document(s) Color of Urine Laboratory test result [facility] ([facility]) Spec [place] 1.005 [facility] ([facility]) Appearance of Urine Laboratory test result [facility] ([facility]) pH of Urine by Test strip 8 [facility] ([facility]) Protein [Presence] in Urine by Test strip Laboratory test result [facility] ([facility]) Nitrate [Presence] in Urine Laboratory test result [facility] ([facility]) Inhouse Glucose Laboratory test result [facility] ([facility]) Leukocytes Laboratory test result [facility] ([facility]) Bilirubin.total [Presence] in Urine by Test strip Laboratory test res ult [facility] ([facility]) Ketones [Presence] in Urine by Test strip Laboratory test result [facility] ([facility]) Urobilinogen Laboratory test result [facility] ([facility]) Blood type and Indirect antibody screen panel - Blood Laboratory test result [facility] ([facility]) ID Date Data Source [id number] 03/09/2020 10:01:32 AM EDT [facility] Name Value Range Interpretation Code Description Data Neva rce(s) Supporting Document(s) Progress Note [facility] [id number]6OWjTGbBrXrHxGQQx lbm [file] ICAgICAgICAgICAgICAgICAgICAgICAgICAgICAgICAgICAgICAgICAgICANCiAgICAgICAgICAgICAg ICAgICAgICAgICAgICAgICAgICAgICAgICAgICAgIC AgICAgICAgICAgICAgICAgICAgICAgICAgICAgICAgICAgICAgICAgICAgICAgICAgICAgICANCiAgIC AgICAgICAgICAgICAgICAgICAgICAgICAgICAgICAgICAgICAgICAgICAgICAgICAgICAgICAgICAgIC AgICAgICAgICAgICAgICAgICAgICAgICAgICAgICAg ICAgICANCiAgICAgICAgICAgICAgICAgICAgICAgICAgICAgICAgICAgICAgICAgICAgICAgICAgICAg ICAgICAgICAgICAgICAgICAgICAgICAgICAgICAgICAgICAgICAgICAgICAgICANCiAgICAgICAgICAg ICAgICAgICAgICAgICAgICAgICAgICAgICAgICAgIC AgICAgICAgICAgICAgICAgICAgICAgICAgICAgICAgICAgICAgICAgICAgICAgICAgICAgICAgICANCi AgICAgICAgICAgICAgICAgICAgICAgICAgICAgICAgICAgICAgICAgICAgICAgICAgICAgICAgICAgIC AgICAgICAgICAgICAgICAgICAgICAgICAgICAgICAg ICAgICAgICANCiAgICAgICAgICAgICAgICAgICAgICAgICAgICAgICAgICAgICAgICAgICAgICAgICAg ICAgICAgICAgICAgICAgICAgICAgICAgICAgICAgICAgICAgICAgICAgICAgICAgICANCiAgICAgICAg ICAgICAgICAgICAgICAgICAgICAgICAgICAgICAgIC AgICAgICAgICAgICAgICAgICAgICAgICAgICAgICAgICAgICAgICAgICAgICAgICAgICAgICAgICAgIC ANCiAgICAgICAgICAgICAgICAgICAgICAgICAgICAgICAgICAgICAgICAgICAgICAgICAgICAgICAgIC AgICAgICAgICAgICAgICAgICAgICAgICAgICAgICAg ICAgICAgICAgICANCiAgICAgICAgICAgICAgICAgICAgICAgICAgICAgICAgICAgICAgICAgICAgICAg ICAgICAgICAgICAgICAgICAgICAgICAgICAgICAgICAgICAgICAgICAgICAgICAgICAgICANCjw/eHBh V6owhNFnuqH8Y8aoWp9AUu2GZQ9zt0ClNLCsTFdsaz RzFwuUUcIaVMUmQqqHIni2ZLjeSE3OtYNeS4LdU5ReZWepUY3EJDMjHNVjlUKcCBXeHHEjLnF2FMCuLW zvTD5BbMQdSAxeEZPjEODzODMpPMZuGXQfYJUJQDUfDFMfOwGgDVIlKKGzEYTuAUGGASC9SZFhFiPfPI XxZXKnYP8KBZXzJ134wlTgHQ2DAs1PIcGkEK7xrg2P JghwVPToCsdSEbm4BIxeYZ7InZNhjHWnDZRnNRRPVfCjT9xqh9OkRdhoGUJSAJisDR3Pa6BhvMZjTUy+ Nf2TJM7ie4FtLWxpQTOzQW6pax8ISDgKEaWhU4WofTpvTVQoe3mxQNRbLA4caKBsSWR1ZQvxanMzqL5o CJKRmGEpLMGkGU5BTJL4VIDfVeLrOaXgSOTiRHl7HG PVUQnNVhJkG3Dpc2AzSsH0DUFrRzIrWMtqFFXsIbH1CG11lGnsXA7IFXWpZERoQJ85CRP7WJDjUm1MWp 8FEjZtLC6uuf0BBuJaMO5omk0DJRsCAoOkQ3A0oVVyE9Kntz12HA9EkID5qGKjZG1PqR0vKK4Id5QqMN XbJmGpWTSbUBElKTGkMTZfWpIoQL1QSGBuOyMjwXKc ZURhKWtfRSXtKcI2LoMpWG2TYMJjSDJ9HC4UHK8UEekvZ9PWUIszhJwgMrRPIAL/QUNUSVZJVFkmTVJf N30RV2CSWIkYOmewTWgLIvjrBp3gNVc+Hm8WIO9mh1UhKLsgLLYbXI1qhq2JYJgWMjEnZ0Q3rGTuY8F5 OYvfTo1NLAXaRACqHzZiNIENTXldTM5UFN7wulK9WO 5FpSDyZGBoMLRxmPAoWQq8R68gjBAcIQsiED6FSEV+Delbert+Lr3SQDTsRGWmDGNyYtLnBRLYHxQbM2PbU8 EYz2DgN6IpSI48xEdxnqZbRCevEE6PRL4wXRHlDSHLTD1HrHEaqF9iesUrVqGxVAVQDkOkG80jlULyPV VoNUB5GLZwTc8WFWInB0EjkxEncPwohzHyGDVxKKPE CP6PRVmctnQzoGLqmMtzAM50gBaoCW3DHd2BCpQsHT0myt6DfSUnSe8GHDC1EX8RAVBoNPFxCXIjKVH0 GMReVnPzUNomXOVjWMQzTGC7MMRcVPZeLH4UGwYhVMXgPJHtBLGkUUVpQBCbbm8QFAVqNRN3JtldKZWr RDPtFHCfKBeaLMDsZDJdPFU4FBSlOCFoBM2EVuBhZA AzUPR1NXRhCINlKAPgry7EWRUnQLI3PfB2FpBtYWMoOZQzCBhjJXEuYMKeSsguJWAoFMUoYR3ODhYfDD BpJNxmNyVxIXZmSSNlya8JPENtFEUxMNX9EtNsNICeDAHlTQojFNXwDMJwQfJ7VZSfZBWbEM6FDpSeZO SfSSW9QgMgTJNnAFYpnh6MJPIlBCZhNRn6BzFrKRPo TMMnQBsyAOIvHMO4APt1BYDqZAFvND3QMrUvIGIhTZbeBKleZDSpBOJtwd1LVLMmBWRqNHU9GVHxIVIi MIYfENftIOBhYRKqKICaDFAaJPHeUA3RVcNgUJPjQoTbIBKdOAEmIXFtdw6GFEBcNTAuPSQ1VSViOUOl FUZbSDqkCHSgYRO8CBHdTMKsBYCiOK6UQfNbVDElOd s9MMtnJRDsKZKawz6KQKQrTAZlQZqoPrMpIBUrFAXbMFscPQYeFRT8RbMzAVVkAEIpJX6HSoSxLMXwVm z4LmHpJZYtDYEgid2HMSQkIQLbKFO5BzZyVMYhBHEgIRysCFGySGEnVMYaEBNrBGHsHL0ZIhYcGGQaZu DxJHSlCHKxBFQtsc3PSJAzLNJvCCX3AfCwFNExQBTd GUznBMVoZANnITVhFOPaSHPmNJ0HBaHkXBTjJIBlYHuuZTLaTWBlmv8WACGyGUY8YeS2JeAgMDFiYAIo RJtqEJLxRFZvPkI0GPGgUPKpQK0LLnHdWCZtJSU5UBDcKPKgAQCgyj4VAUNqDMA5SKG4GsXsJQHeONVd RCopBTXlSUF4VDe0WETfHRIfZH9YDbCfYXDdKQCrYg IdKXGjZGRgqa7COLZpHGD2LGC2DBGhFTGfYGJxOKbaRQLmUJM6PTE1OSAqSAAeDY7CMhEaVHSkNFsoWf SrITNiZLDayb8BTSGzHTK9PzM2QpSpTDFtJTBsEJc3ekByiODrHNl1QH6KH0WwopNeXBPNSt7Md178PO J9VDSwSo2UR5yeWu8cLCJdJPVCYp4GQDc4UbOtEJC7 C9Z9Q7LgRkGnDRG0BgFjZONgMQB5IBS7NGC+HFqvH1M8TWq3KdsmHUWiZ4Y6OyNaOkQ3TfPcJSGtMSX0 Ej3gZYPDQx1+EShqeJHthXmyECDQHdB3YvG6RZunNXAYSj0C ID Date Data Source [id number] 03/08/2020 01:31:23 PM EDT [facility] Name Value Range Interpretation Code Description Data Neva rce(s) Supporting Document(s) Leukocytes [#/volume] in Blood by Automated count 8.1 10*3/uL 4-10 [facility] Erythrocytes [#/volume] in Blood by Automated count 4.11 10*6/uL 4.6- 6.1 L [facility] Hemoglobin [Mass/volume] in Blood 12.7 g/dL 13.5-18 L [facility] Hematocrit [Volume Fraction] of Blood by Automated count 36.9 % 4 1-53 L [facility] Erythrocyte mean corpuscular volume [Entitic volume] by Auto mated count 89.7 fL 80-96 [facility] Erythrocyte mean corpuscular hemoglobin [Entitic mass] by Automated count 31.0 pg 27-33 [facility] Erythrocyte mean corpuscular hemoglobin concentration [Mass/volume] by Automated count 34.6 g/dL 32.0-36.0 [facility] width [Ratio] by Automated count 17.5 % 11.5-14.5 H [facility] Platelets [#/volume] in Blood by Automated count 241 10*3/uL 150-400 [facility] Differential cell count method - Blood [facility] Neutrophils/100 leukocytes in Blood by Automated count 73 % [facility] Lymphocytes/100 leukocytes in Blood by Automated count 9 % [facility] Monocytes/100 leukocytes in Blood by Automated count 10 % [facility] Eosinophils/100 leukocytes in Blood by Automated count 7 % [facility] Basophils/100 leukocytes in Blood by Automated count 1 % [facility] Neutrophils [#/volume] in Blood by Automated count 5.91 10*3/uL 1.8-7 .0 [facility] Lymphocytes [#/volume] in Blood by Automated count 0.70 10*3/uL 1.2-4 .0 L [facility] Monocytes [#/volume] in Blood by Automated count 0.77 10*3/uL 0-0.8 [facility] Eosinophils [#/volume] in Blood by Automated count 0.60 10*3/uL 0-0.5 H [facility] Basophils [#/volume] in Blood by Automated count 0.09 10*3/uL 0-0.2 [facility] Nucleated erythrocytes/100 leukocytes [Ratio] in Blood by Automated count 0 /100{WBCs} 0-0 [facility] ID Date Data Source [id number] 03/08/2020 02:13:40 PM EDT [facility] Name Value Range Interpretation Code Description Data Neva rce(s) Supporting Document(s) Albumin [Mass/volume] in Serum or Plasma by Bromocresol green (BCG) dye binding method 4.3 g/dL 3.5-5.2 [facility] Bil[facility].total [Mass/volume] in Serum or Plasma 0.4 mg/dL <1.2 [facility] Calcium [Mass/volume] in Serum or Plasma 9.1 mg/dL 8.8-10.2 [facility] Chloride [Moles/volume] in Serum or Plasma 94 mmol/L 98-107 L [facility] Creatinine [Mass/volume] in Serum or Plasma 0.69 mg/dL 0.70-1.20 L [facility] Glucose [Mass/volume] in Serum or Plasma 113 mg/dL 70-140 [facility] Alkaline phosphatase [Enzymatic activity/volume] in Serum or Plasma 92 U/L 40-129 [facility] Potassium [Moles/volume] in Serum or Plasma 4.1 mmol/L 3.4-5.1 [facility] Protein [Mass/volume] in Serum or Plasma 6.8 g/dL 6.4-8.3 [facility] Sodium [Moles/volume] in Serum or Plasma 127 mmol/L 136-145 L [facility] Aspartate aminotransferase [Enzymatic activity/volume] in Serum or Plasma 20 U/L <40 [facility] Urea nitrogen [Mass/volume] in Serum or Plasma 9 mg/dL 8-23 [facility] Osmolality of Serum or Plasma by calculation 263 mosm/kg 275-300 L [facility] Creatinine/Urea nitrogen [Mass Ratio] in Serum or Plasma 13 [facility] Bicarbonate [Moles/volume] in Serum 24 mmol/L 22-29 [facility] Alanine aminotransferase [Enzymatic activity/volume] in Seru m or Plasma 12 U/L <41 [facility] Anion gap 3 in Serum or Plasma 9 mmol/L 8-15 [facility] Albumin/Globulin [Mass Ratio] in Serum or Plasma 1.7 [facility] Glomerular filtration rate/1.73 sq M pre dicted among non-blacks [Volume Rate/Area] in Serum or Plasma by Creatinine-based formula (MDRD) >6 0 [facility] Glomerular filtration rate/1.73 sq M pre dicted among blacks [Volume Rate/Area] in Serum or Plasma by Creatinine-based formula (MDRD) >60 [facility] ID Date Data Source [id number] 03/08/2020 02:13:40 PM EDT [facility] Name Value Range Interpretation Code Description Data Neva rce(s) Supporting Document(s) Thyrotropin [Units/volume] in Serum or Plasma 2.920 u[IU]/mL 0.270-4. 200 [facility] ID Date Data Source [id number] 02/23/2020 02:27:00 PM [facility] Name Value Range Interpretation Code Description Data Neva rce(s) Supporting Document(s) Micropolyspora Faeni AB Laboratory test result N ormal (applies to non-numeric results) [facility] ([facility], ) Aspergillus Fumigatus AB Laboratory test result Normal (applies to non-numeric results) [facility] ([facility], ) Aureobasidium [place] Laboratory test result N ormal (applies to non-numeric results) [facility] ([facility], ) [place] Serum AB Laboratory test result Normal (a pplies to non-numeric results) [facility] ([facility], ) Performed at: [facility] [id number] Counter Person: Srikanth Boyce MD, Phone: [phone] Performed at: [facility] [address] [id number] [employer] Person: Fouzia Zavala MD, Phone: [phone] Thermoactinomyces Vulgaris Laboratory test result Normal (applies to non- numeric results) [facility] ([facility]) Thermoactinomyces Sacchari Laboratory test result Normal (applies to non- numeric results) [facility]) ID Date Data Source [id number] 02/23/2020 02:27:00 PM EDT [facility]) Name Value Range Interpretation Code Description Data Neva rce(s) Supporting Document(s) Cytoplasmic Neutrop AB Anca-C Laboratory test result Normal (applies to non- numeric results) [facility] ([facility]) Perinuclear AB Anca-P Laboratory test result Nor mal (applies to non-numeric results) [facility] ([facility]) The presence of positive fluorescence ex hibiting P-ANCA or C-ANCA patterns alone is not specific for the diagnosis of Roberta's Granulomatosis (WG) or microscopic polyangiitis. Decisions about treatment should not be based solely on ANCA IFA results. The [employer] Consensus recommends follow up testing of positive sera with both CA- 3 and MPO-ANCA enzyme immunoassays. As m any as 5% serum samples are positive only by EIA. Ref. AM J Clin Pathol 1999;111:507-513. Anca-Atypical Laboratory test result Normal (applies t o non-numeric results) [facility]) The atypical pANCA pattern has been obse rved in a significant percentage of patients with ulcerative colitis, primary sclerosing cholangitis and autoimmune hepatitis. ID Date Data Source [id number] 02/23/2020 02:27:00 PM EDT [facility]) Name Value Range Interpretation Code Description Data Neva rce(s) Supporting Document(s) Antinuclear Antibodies Direct Laboratory test result Normal (applies to non- numeric results) [facility] ([facility]) Sjogren's Anti SS-B Laboratory test result 0.0-0.9 Zaida l (applies to non- numeric results) [facility]) Sjogren's Anti SS-A Laboratory test result 0.0-0.9 Zaida l (applies to non- numeric results) [facility]) ID Date Data Source [id number] 02/23/2020 02:27:00 PM EDT [facility]) Name Value Range Interpretation Code Description Data Neva rce(s) Supporting Document(s) Angiotensin converting enzyme [Enzymatic activity/volu me] in Serum or Plasma 44 U/L 14-82 Normal (applies to non-numeric results) [facility] Erythrocyte sedimentation rate by Westergren method 6 mm/hr 0-20 Normal (applies to non-numeric results) [facility] C reactive protein [Mass/volume] in Serum or Plasma by High sensitivity method Laboratory test result 0.00-0.30 Normal (applies to non-numeric results) [facility] ([facility]) Cyclic citrullinated peptide IgG Ab [Units/volume] in Serum or Plasma 10 units 0-19 Normal (applies to non-numeric results) [facility] ([facility]) <content>Negative <20</con tent>
<content>Weak positive 20 - 39</content>
<content>Moderate positive 40 - 59</content>
<content>Strong positive >59</content>
<content></content> Rheumatoid factor [Units/volume] in Serum or Plasma Laboratory t est result Normal (applies to non-numeric results) [facility] ([facility]) ID Date Data Source [id number] 02/23/2020 12:52:00 PM EDT [facility] ([facility]) Name Value Range Interpretation Code Description Data Neva rce(s) Supporting Document(s) FVC-Pred 3.57 L [facility] ([facility]) FVC-%Pred-Pre [address] [facility] PDFReport Laboratory test result [facility]) FVC-Pre 2.73 L [facility] ([facility]) Fev1-Pre 1.95 L [facility] ([facility]) Fev1-Pred 2.49 L [facility] ([facility]) FVC-LLN 2.69 L [facility] ([facility]) Fev1-LLN 1.75 L [facility] ([facility]) Fev1-%Pred-Pre 78 L [facility] ([facility], ) Fev6-Pred 3.30 L [facility] ([facility]) Fev6-%Pred-Pre 82 L [facility] ([facility]) Fev6-Pre 2.73 L [facility] ([facility]) Fev6-LLN 2.44 L [facility] ([facility]) Rvr2ycr-%Pred-Pre 100 % [facility] ([facility]) Wkv9jjb-Obqd 71 % [facility] ([facility]) Lez3ddb-Kuz 71 % [facility] ([facility]) Jaf5vfn-OKZ 61 % [facility] ([facility]) Kdx5xwy-Rou 100 % [facility] ([facility]) Qfy8lbr-Ipwu 93 % [facility] ([facility]) FEFMax-Pre 3.68 L/E/sec [facility] ([facility]) Nzs3ugz-%Pred-Pre 108 % [facility] ([facility]) FEFMax-Pred 6.40 L/E/sec [facility] ([facility]) FEFMax-%Pred-Pre 57 L/E/sec [facility] ([facility]) Kpy4883-Idpc 1.64 L/E/sec [facility] ([facility]) FEFMax-LLN 4.21 L/E/sec [facility] ([facility]) Myq9579-Okt 1.38 L/E/sec [facility] ([facility]) Jog9684-JMI 0.13 L/E/sec [facility] ([facility]) Uzp2573-%Pred-Pre 84 L/E/sec [facility] ([facility]) ExpTime-Pre 5.52 sec [facility] ([facility]) Xbk5blo5-Ugqx 76 % [facility] ([facility], ) Xdk6jlp7-%Pred-Pre 94 % [facility] ([facility], ) Hrf7eoc5-Bdx 71 % [facility] ([facility], ) Bct0bgp3-JHB 67 % [facility] ([facility], ) ID Date Data Source [id number] 02/15/2020 12:29:18 PM EDT [facility] Name Value Range Interpretation Code Description Data Neva rce(s) Supporting Document(s) Progress Note [facility] RDNSXe4kBkLVCrJm51/TEFxtLNEwj7ToDLfrWFh0OUsgZVRuC9PaRCL5sK1vVRM0ZVdFRsRzMqMiCPH2 lbm [file] ICAgICAgICAgICAgICAgICAgICAgICAgICAgICAgIC AgICAgICAgICAgICAgICAgICAgICAgICAgICAgICAgICAgDQogICAgICAgICAgICAgICAgICAgICAgIC AgICAgICAgICAgICAgICAgICAgICAgICAgICAgICAgICAgICAgICAgICAgICAgICAgICAgICAgICAgIC AgICAgICAgICAgICAgICAgDQogICAgICAgICAgICAg ICAgICAgICAgICAgICAgICAgICAgICAgICAgICAgICAgICAgICAgICAgICAgICAgICAgICAgICAgICAg ICAgICAgICAgICAgICAgICAgICAgICAgICAgDQogICAgICAgICAgICAgICAgICAgICAgICAgICAgICAg ICAgICAgICAgICAgICAgICAgICAgICAgICAgICAgIC AgICAgICAgICAgICAgICAgICAgICAgICAgICAgICAgICAgICAgDQogICAgICAgICAgICAgICAgICAgIC AgICAgICAgICAgICAgICAgICAgICAgICAgICAgICAgICAgICAgICAgICAgICAgICAgICAgICAgICAgIC AgICAgICAgICAgICAgICAgICAgDQogICAgICAgICAg ICAgICAgICAgICAgICAgICAgICAgICAgICAgICAgICAgICAgICAgICAgICAgICAgICAgICAgICAgICAg ICAgICAgICAgICAgICAgICAgICAgICAgICAgICAgDQogICAgICAgICAgICAgICAgICAgICAgICAgICAg ICAgICAgICAgICAgICAgICAgICAgICAgICAgICAgIC AgICAgICAgICAgICAgICAgICAgICAgICAgICAgICAgICAgICAgICAgDQogICAgICAgICAgICAgICAgIC AgICAgICAgICAgICAgICAgICAgICAgICAgICAgICAgICAgICAgICAgICAgICAgICAgICAgICAgICAgIC AgICAgICAgICAgICAgICAgICAgICAgDQogICAgICAg ICAgICAgICAgICAgICAgICAgICAgICAgICAgICAgICAgICAgICAgICAgICAgICAgICAgICAgICAgICAg ICAgICAgICAgICAgICAgICAgICAgICAgICAgICAgICAgDQogICAgICAgICAgICAgICAgICAgICAgICAg ICAgICAgICAgICAgICAgICAgICAgICAgICAgICAgIC BrAJNwBOEdKRDxZBQzWLFmAEIvRHVnULVqHZItWDJlJVOlWBLzKOMmIAXtAHv0P3pbQKBsSLEgWQ2jRP d3Jz8+MArJHhDuYPL3vqXlgA9DTB1ke1ZqJCjrBIUni1YhCLd5QR8FHCWmNTgfGJ5ZAHqlin0PDEHrNE YwoREEa2vgKhEmIMX6EZMuYcguYB9EKRWtR4vpnrUt MVGjGHATUMoxIFBJLHMsUHYaYhAeBfDqKYSiQMRvZQABUGH4LGZyPcJhSTDnLUUwIjFrMFMKPZ5HBfEh V7IrjD90KPoPLg5+HNbubxVyHhmBNcK3UZUjt2OyGLr2SJ0BDAAnNovks5FgBsraUPUEAEskKK0KTEG5 VQR8FJLpEi5PDNSeI590fcZiHS8COd7TPiKfQJ2msy 9HPxnvISXmZfdKYqr6AWjzSL0YnIUbIMxTpg2srdUenuMTo6AbwyNsdUYLGrYefYluKUYtRZvtSiQ7GN ZTRWCubPR9OdK6YqFjOjSoYXO6SIFgCP5fHRkhJG3MAGN8IUibEVOsPLCbN0dFKzZdUPGuGnPdgAfaEZ 3GRkKsF7YxwvWdtKEoJoJqKOPARq4+DQplbmRvYmoN LpGdTIOaHrcIZwj5YZutTL0OlCFkTY8Grs3xeACqJ5OerVihOAOeGRwfkrEdIr6mJCFhMKhtDGCuFU4f V0huL0ceT7TzSGZJAkXwV0AjE9HfGfAuGYY3URSfDPQsPHR5FKCPIzVcJ4LxXSldXhShWTXQHL4CGduh FQTvPaaTLTgLW8NBLRuEILPVCh1LS35IX38YYBXUCM 7TM0kIYhyiSM0+BU8ZAb2ZYuOdQA3dri7WLjwxQHHhDavFWgh7EQgfPG7VvUKlB3YusLMvy1lRPyFpE9 XCDRO3GNHwPc9PNKSyFkDfSFApOYkkQA8eSLSdDIDVqVdrqrI9WA9GPZ6lypRdDN0IReCdCj7lUe1PCl WhZ1DzG0EsGHPoMTTUSKknPU8PFPqvUR4cBM1Za1DU sAOhwF3buz4MSCNeXNGgTatwxk3JWhjcJ3N0uGvhGEZhFmxyXKAKCUzfGQ1DQKYvJQI4MJFfYaHiRWRS DbErY26qEM1WW7Ewp52rQsD0ORFtBpVmBThrLW11hPbrzsXjnYEntObkIP5VGu9+DQplbmRvYmoNCnhy OSQUKpKiYPGUTvOkOTEhYIUrJECxRqQ5YdCcMy1MFQ VgQOAoOIRvHaIiPOZbLDOzWPbpCBNrANB6HXC4YYFdTPUrNA5PKgJgCFDlZZtmLYOeJKPwEMQahe9NWC QcIIIhPWW9OkWfGACfAXLqAXzqHCOhTFHfOOKcKJKuMWVpBR4DFcToCUEeAVi1RpIbGTIcKBYlrp4XES MjZOUpJon2YSChHTEmKMHzMNitKDCnUWJ3DrU1XMHf AZPrQD6IVsEnCOPeTFi7IVFuTVFcKEWkxm9HKMZhSKEnZVx4GoOiGYEfNLGiRMrqMPBaPNEhILL6ZLRg WFRuTT1ZUcLfEVCcUBF9GXWhNWYbUSKouf7URYBjROVtKITyYPIpFCQqTGIdFJdyJTJyUDT1YSlsUESw VYLdBI6TVlNcFSZwOVxrZNNpDJDbULUjhe4KWAXvZP ThVXtuMWEzFPNkUNQcANsvQNHqRELfSWL1OZYnWJLiLE9HVzYyRIPrMgPaJzcoSSBuNVEiqn5CJGFwGW AiTZL1TZGeOJXkQHRuEHjdZVUcKJX3RGssUHTtIPBzCI0BTiDkZSUkSbkdHAvtDFGgPTGzfm5INFHnVZ DpIQI4YHDdJMCuUCEnYBswEFGtHPCgZpU3KYOyGPRe XK6OIcVzYLDvCqG0YrzjKXOjNJLfco6FOEFfQJHoZSQ5DjKnUDJiUFLhYXewTYFaCVFkUJo9NLTsBMUz IC4CCiYfGGNxBdT6YzskUSOlGEIuak6MRPYyJSZ8GhZoIaKfDHAoOOQbUXybHLVyAVJbVNZzXCZuWKFp CV0RIwUyPJGwKPN5ZFDiFHYwTFInbj8KLSVzXTH5Vj p7LXZpBSLjHUMgDLfxINFtFFD4WKQ0TDZnNJVeFC4TSzHuOABiYZDfCZZkGCXkDDElrr1YQBMmNHP1UD O7CQDdOXHgTOGjHRimOIFcBMX2AHK9EYBzSAIpZJ7PFqOvJKXjUMR2HeHpDNFtTRGbtj3WBEArBSO9Cz P6TGAzEFGzSESdLNsiSXArHTI7LXDeITEzSAGbXB4W UqQrBWSqCZv4ELsiEVOxHTAhse2RaWKjnOcknz2JTOuUJj0NsGuzERHwAFesKo9dmJMaVEXdWFWSOp5F jsLsZVYiRJMHYRyiXXGpXCr3Zfz0JUZ0LHSoAurhZUBeC4U6O3EqNdC9VmwfMCY2HjL0QjVeETM4MOW9 BNPeCVHcZVXhDFA8CQKgOWilFDBnGic+RL0cSAr+Ks2Na8EwbsZ9ukXwACh8Aig1Wl0BCAPJT3MJJw== ID Date Data Source [id number] 02/14/2020 12:55:11 PM EDT [facility] Name Value Range Interpretation Code Description Data Neva rce(s) Supporting Document(s) Leukocytes [#/volume] in Blood by Automated count 9.1 10*3/uL 4-10 [facility] Erythrocytes [#/volume] in Blood by Automated count 4.35 10*6/uL 4.6- 6.1 L [facility] Hemoglobin [Mass/volume] in Blood 13.0 g/dL 13.5-18 L [facility] Hematocrit [Volume Fraction] of Blood by Automated count 37.5 % 4 1-53 L [facility] Erythrocyte mean corpuscular volume [Entitic volume] by Auto mated count 86.3 fL 80-96 [facility] Erythrocyte mean corpuscular hemoglobin [Entitic mass] by Automated count 30.0 pg 27-33 [facility] Erythrocyte mean corpuscular hemoglobin concentration [Mass/volume] by Automated count 34.7 g/dL 32.0-36.0 [facility] width [Ratio] by Automated count 15.9 % 11.5-14.5 H [facility] Platelets [#/volume] in Blood by Automated count 239 10*3/uL 150-400 [facility] Differential cell count method - Blood [facility] Neutrophils/100 leukocytes in Blood by Automated count 74 % [facility] Lymphocytes/100 leukocytes in Blood by Automated count 9 % [facility] Monocytes/100 leukocytes in Blood by Automated count 10 % [facility] Eosinophils/100 leukocytes in Blood by Automated count 6 % [facility] Basophils/100 leukocytes in Blood by Automated count 1 % [facility] Neutrophils [#/volume] in Blood by Automated count 6.76 10*3/uL 1.8-7 .0 [facility] Lymphocytes [#/volume] in Blood by Automated count 0.78 10*3/uL 1.2-4 .0 L [facility] Monocytes [#/volume] in Blood by Automated count 0.91 10*3/uL 0-0.8 H [facility] Eosinophils [#/volume] in Blood by Automated count 0.55 10*3/uL 0-0.5 H [facility] Basophils [#/volume] in Blood by Automated count 0.09 10*3/uL 0-0.2 [facility] Nucleated erythrocytes/100 leukocytes [Ratio] in Blood by Automated count 0 /100{WBCs} 0-0 [facility] ID Date Data Source [id number] 02/14/2020 01:23:27 PM EDT [facility] Name Value Range Interpretation Code Description Data Neva rce(s) Supporting Document(s) Thyrotropin [Units/volume] in Serum or Plasma 3.100 u[IU]/mL 0.270-4. 200 [facility] ID Date Data Source [id number] 02/14/2020 01:23:27 PM EDT [facility] Name Value Range Interpretation Code Description Data Neva rce(s) Supporting Document(s) Albumin [Mass/volume] in Serum or Plasma by Bromocresol green (BCG) dye binding method 4.2 g/dL 3.5-5.2 [facility] Bil[facility] [Mass/volume] in Serum or Plasma 0.5 mg/dL <1.2 [facility] Calcium [Mass/volume] in Serum or Plasma 9.2 mg/dL 8.8-10.2 [facility] Chloride [Moles/volume] in Serum or Plasma 95 mmol/L 98-107 L [facility] Creatinine [Mass/volume] in Serum or Plasma 0.77 mg/dL 0.70-1.20 [facility] Glucose [Mass/volume] in Serum or Plasma 82 mg/dL 70-140 [facility] Alkaline phosphatase [Enzymatic activity/volume] in Serum or Plasma 82 U/L 40-129 [facility] Potassium [Moles/volume] in Serum or Plasma 4.1 mmol/L 3.4-5.1 [facility] Protein [Mass/volume] in Serum or Plasma 6.9 g/dL 6.4-8.3 [facility] Sodium [Moles/volume] in Serum or Plasma 131 mmol/L 136-145 L [facility] Aspartate aminotransferase [Enzymatic activity/volume] in Serum or Plasma 14 U/L <40 [facility] Urea nitrogen [Mass/volume] in Serum or Plasma 11 mg/dL 8-23 [facility] Osmolality of Serum or Plasma by calculation 271 mosm/kg 275-300 L [facility] Creatinine/Urea nitrogen [Mass Ratio] in Serum or Plasma 14 [facility] Bicarbonate [Moles/volume] in Serum 24 mmol/L 22-29 [facility] Alanine aminotransferase [Enzymatic activity/volume] in Seru m or Plasma 8 U/L <41 [facility] Anion gap 3 in Serum or Plasma 11 mmol/L 8-15 [facility] Albumin/Globulin [Mass Ratio] in Serum or Plasma 1.6 [facility] Glomerular filtration rate/1.73 sq M pre dicted among non-blacks [Volume Rate/Area] in Serum or Plasma by Creatinine-based formula (MDRD) >6 0 [facility] Glomerular filtration rate/1.73 sq M pre dicted among blacks [Volume Rate/Area] in Serum or Plasma by Creatinine-based formula (MDRD) >60 [facility] ID Date Data Source [id number] 02/03/2020 12:49:30 PM EDT [facility] Name Value Range Interpretation Code Description Data Neva rce(s) Supporting Document(s) Progress Note [facility] BUOEMq4eYdKODrHv51/CFAxvOPPit3QbWVfvCRe6UNotKGSzQ7ClKLV3vR3rYPS2VGnFHdQoLuKvFOB1 lbm [file] Fi1WGuB0NQZ6rOEtFt9ROCqjLgAVDyJkTP7NMGg= ID Date Data Source [id number] 02/03/2020 12:49:25 PM EDT [facility] Name Value Range Interpretation Code Description Data Neva rce(s) Supporting Document(s) Progress Note [facility] ECHDQd8zTkJQYzEd48/KSIfrPQAga6JdBBbsIVr1CSwjHDNhB3IaPXT7pJ6cVFT2FCfIWdNfUtSyEZU9 lbm XdMgdPBcDtCDRlWpeAFdDhNMwiWzuvvDCrAI0SoJS0ULTuC99sULEaFYDhF6CkREPrUWK+Af5AMANcaH MlSL8QPrhG3A9wu6h8Xw6+M/fuQAT5v3FXIeY57qc1ROl1Hbpw98wX32n4Z8PIJePJJB1PYKY//ZEEKH Z97IKBLoZV3s5dI8UsOdzcQAqPSP3A/Od/bODahmGw /N/1s48c7GhW/jwKGu0edsOv9q/oFeBOQBcPbS8vu5v26hklt8pcltOlpcq7nPFOcmyCwP37TMjsMNj6 oCjJtHF2ZJ+U9CUqiTdqi3opzDdtl2ZrOF1AXn+yfdN861bvQnaCd/meBtOQaSTOuWOuiXOdhIVbaYvF U4yReujVcG7cMX932eE0+jZDUfhFSMPailYva9rSmo i49WRfllCkZKE3PvKzkQvznSm1tzH+zXd5ouY6KjDdivLEyF1Hy+AwTwry1NzN+H6k2fNk3aLgICf3DN VMSSnahNWgvQIhkXgCCjBNtuYtst2o+Ptom9nx34k7yg1cCOkt8pRn72Lx+0SxHM+sURl899eePKm9Eb NctogEdm8V4uGrWQV491+qhYtjDreoPdkQoFm2EKLJ roTwhMnOR+9OjtjZoXYuSmWHR/7FAP4nb19BUb5Q0po/dpcaxoSyFj6voMPNrOn2xp91jh4oLwoMZc4e 90l32BGbOXt4RF3+d2yYT6CPgAWrZ8LVnPQIzyCjOF4vuEWSKSPkGpi7D1kXb4iE3zHDGj0BjB4F+t6A 7gTAGHX8v1EYOgkNuublbjHimofUTM7YffBBTiBmhP sXIqmyq60SjNvdOmCtVZdjy6NAfN/+VnAE2bbbpEbCmgDQD/ypNniTl1nEK/[place]/e3roJN8bceYD02UX [file] AgICAgICAgICAgICAgICAgICAgICAgICAgICAgICAgICAgICAgICAgICAgICAgICAgICAgICAgICAgIC AgICAgICAgICAgICAgICAgICAgICAgICAgICAgICAgICAgICAgICANCiAgICAgICAgICAgICAgICAgIC AgICAgICAgICAgICAgICAgICAgICAgICAgICAgICAg ICAgICAgICAgICAgICAgICAgICAgICAgICAgICAgICAgICAgICAgICAgICAgICAgICANCiAgICAgICAg ICAgICAgICAgICAgICAgICAgICAgICAgICAgICAgICAgICAgICAgICAgICAgICAgICAgICAgICAgICAg ICAgICAgICAgICAgICAgICAgICAgICAgICAgICAgIC ANCiAgICAgICAgICAgICAgICAgICAgICAgICAgICAgICAgICAgICAgICAgICAgICAgICAgICAgICAgIC AgICAgICAgICAgICAgICAgICAgICAgICAgICAgICAgICAgICAgICAgICANCiAgICAgICAgICAgICAgIC AgICAgICAgICAgICAgICAgICAgICAgICAgICAgICAg ICAgICAgICAgICAgICAgICAgICAgICAgICAgICAgICAgICAgICAgICAgICAgICAgICAgICANCiAgICAg ICAgICAgICAgICAgICAgICAgICAgICAgICAgICAgICAgICAgICAgICAgICAgICAgICAgICAgICAgICAg ICAgICAgICAgICAgICAgICAgICAgICAgICAgICAgIC AgICANCiAgICAgICAgICAgICAgICAgICAgICAgICAgICAgICAgICAgICAgICAgICAgICAgICAgICAgIC AgICAgICAgICAgICAgICAgICAgICAgICAgICAgICAgICAgICAgICAgICAgICANCiAgICAgICAgICAgIC AgICAgICAgICAgICAgICAgICAgICAgICAgICAgICAg ICAgICAgICAgICAgICAgICAgICAgICAgICAgICAgICAgICAgICAgICAgICAgICAgICAgICAgICANCiAg ICAgICAgICAgICAgICAgICAgICAgICAgICAgICAgICAgICAgICAgICAgICAgICAgICAgICAgICAgICAg ICAgICAgICAgICAgICAgICAgICAgICAgICAgICAgIC AgICAgICANCiAgICAgICAgICAgICAgICAgICAgICAgICAgICAgICAgICAgICAgICAgICAgICAgICAgIC AgICAgICAgICAgICAgICAgICAgICAgICAgICAgICAgICAgICAgICAgICAgICAgICANCjw/xBMmH1tqeO BxjlI2I6tdDh9KQa1NLQ2cj9EoLCWhTKohkyRgKrfJ YoRtFNBtVtcSGag6CQfxZR7CnVQrD0OpM8SuEBnaJD8BOUYjAQBjuYNlTHItSUUjIpD1KOGuSQyoKF7A wQYkVLvkNGFsFBHgFFAhDADrWGQjQRDZHUHqCQNnHaWuOTJfQBGhDYKeYVLESEI8ABWkWmNoBGHlLEIl DmMmAOBOXS9BSaTtW4ZfyS56QVdRTs1+DQplbmRvYm yKZiN8AZVrl8PgRWp1LW6QONZpRbbsr9RqPZSpFDSGYTquRZ5OTGS6YDDiFZUaGj2CDWUhK961sbZsDX 4ZXj4KAgVwFD9eji5TTNSwOKLrDvtKZen1NXzjSZ6XwRVuINgJfp2sklJryyZSb1AzhrSgwNKALiZlrW kuOGOyNCdaKlC4SMUCDCAiwJC0CvnsUrCtPXGlVhjo FHYATJtCOgAjG1Wbf0RdPcM1PCLkMsPeMGvcGGXyDaJ6MA17wOqdCL0CQTPpFMYuRV60RXW8WCNkUc6P Bo7GNhTxKX3csh6WMrMbGC5pif3DPJmEWxKuD9J7fSDaF1Dznq82KD3InKL6dOCxZM0VbM7gZP0Mf7Oz FNHyWmOlGZWmCQVuGZCqGECdIdAeGT8GKBDsIsWonX VeDOBwVBM0OVJvEqW7NXXfZO9XPLMnZHL0YU2BDM9WUumxH6SKGKipoPsvVzQZPVD/QUNUSVZJVFkmTV VbU45TE9FECEiUMxnmRQoDFyfyQv3kNPq+Hh7DSV1kf5XlZWn0OHUzRW7uih7HZAfAZfYuD1V1wMAyT2 U7MLuxDh7HKGCiVJDfDhdrZQQZHAdlGU7VXZ2nsdR3 QS7BqPJyHNLbTPLxhQZlIOf7J32ygTIxWPtdSL6RGMH+Delbert+Pu3LYBUfBHBkDTSbGgQrTFSLTjLzF9Bl Y4KWp3SiM5MtZJ15wYzbeqHjSImuCA0FIL7dFULeUQULCL0LlGAsiX2nraUuXPLvBUIGBbYlF19lpJHd CTCvVLD9LEBrDv3YHSYsE9XnxqSlyUcobyVkFRVlMG UAEQ6IPXyeufCnjNUwbJpxSP57nMsbWH7JRf1JXyMsPU4tjv4YfTCxKs6WIEC8Mz6SWKQeUDMrCROqRW D9UMGbOwUyJLozEVVaUZGkWLJ1BZGjBCMmVH2IXcDaQMKkQTX3EBTnVXMqZSMzcp2VDUTyLZS6ILB1NE NpGTOzUUYkGYjpTSSyJQLcGAM6OKIzPHCvHA8DEeAm UVRrEQW7INQaTQNrXAUtsz7NIBHxPUZ1OCM5WbXoVRRkLHGqKHniQBUhYOWiNKKsERIkOQQtUP5GEjTr AFRbLLatAfUcYGZjEPNhco7AMJMgXMRaHETsVcKiXFLbXVAoTGilMKGlEKTlQARaKJYyVHSpXN2MIwZo WIBkSKNbLDvxBMWpKNFcbd6WDWRxCHLxJBk8BzJcOA LfUPKaUBhoVREmLGS4OFR4BLKhBHRpCU3PTrArNPOuYXsqEkhpGBQdZIPbfm1QKSMfKRHfGHR5DKWtPC VeGPZzDZicPZTwJYYeUQatXMMlVEOyDV1HHdAfXBZwYvBpBvlmKTSbLTPzqh9QSNNsJUYuFXM5OiGiDV TtUHVaEYqqRAGaVTK0KkRtZMNbBFYuLE8EFcByZRPh ClbnAWQnCNOjKDNshy1BRVMcGPCwKUOrVdQyVOVsHBVhXZcnFRAmZMD8OVA2YXOmHUKkLG9RKqWhUNVp MwRpKuIrSPGqSHVqlf7ECPSfEOZaDMImXxKxPEHoVGDwBLfmEUGlAGOqHxW7IRNkDRLrNY0NTzDdSSZs FtG6UFThVJNxISBvmw0GHHVuGFTkVmK8YWHxMIOvUD TlQPzpRMMlKUCsZRMdBHKsWQGzDA2RQxPvBOKySoC3OCWcRNCdQUGvpy4SWWTmOTY7FOH9XJXkULHeMY BlOGneARRzMXO9MTR1HKIzHETxRB5FJoPjWPPpVIX5ZEXuQGWhTKFuph8CNGHjVSO4OFo6OMTaWNVhUJ TaZAnjSANcYLC5JABaPLGvOCUiRD7DJcRoMVGrDOZw ZPZyPISkQRHikr0JPBVtLZR5VkB9NyPiGEMxLFGnNWxsMMHwHXA1LVFyHAVrLHRqZF1RPkNiHFEmDAU9 OzznISDuRHQqbn5VAPSeFCV0HRVmTKAtNLGnOPCsFHfiPQQkJMP8RJJnKEZmAMZmQJ7UIgLmDCRxVDm6 UxntFVDiXEMhpj9TxBGzzLyadh4NETrJBu5AnPffEE NbBVhwSr9pkIG8CRCeIRGLBz3ZiwKdYRCoWPGFBTjlGEKcOCCjGIeyAnSpCZWzTtW4UJsqNtRhVRW1YU BfC6AvBvd6ObZ2RFXdGTJfErN1ZNOiIXBiFdUgGpR9LyF0XMChCWYmFeO+ZZ5kSNp+Hq7Ao5KsedQ6xm RaZIj5SDw4Pb3WUBJDG4PHDc== ID Date Data Source [id number] 01/24/2020 01:37:30 PM EDT [facility] Name Value Range Interpretation Code Description Data Neva e(s) Supporting Document(s) Leukocytes [#/volume] in Blood by Automated count 8.3 10*3/uL 4-10 [facility] Erythrocytes [#/volume] in Blood by Automated count 4.23 10*6/uL 4.6- 6.1 L [facility] Hemoglobin [Mass/volume] in Blood 12.5 g/dL 13.5-18 L [facility] Hematocrit [Volume Fraction] of Blood by Automated count 36.1 % 4 1-53 L [facility] Erythrocyte mean corpuscular volume [Entitic volume] by Auto mated count 85.4 fL 80-96 [facility] Erythrocyte mean corpuscular hemoglobin [Entitic mass] by Automated count 29.6 pg 27-33 [facility] Erythrocyte mean corpuscular hemoglobin concentration [Mass/volume] by Automated count 34.7 g/dL 32.0-36.0 [facility] width [Ratio] by Automated count 14.6 % 11.5-14.5 H [facility] Platelets [#/volume] in Blood by Automated count 224 10*3/uL 150-400 [facility] Differential cell count method - Blood [facility] Neutrophils/100 leukocytes in Blood by Automated count 77 % [facility] Lymphocytes/100 leukocytes in Blood by Automated count 8 % [facility] Monocytes/100 leukocytes in Blood by Automated count 9 % [facility] Eosinophils/100 leukocytes in Blood by Automated count 5 % [facility] Basophils/100 leukocytes in Blood by Automated count 1 % [facility] Neutrophils [#/volume] in Blood by Automated count 6.35 10*3/uL 1.8-7 .0 [facility] Lymphocytes [#/volume] in Blood by Automated count 0.68 10*3/uL 1.2-4 .0 L [facility] Monocytes [#/volume] in Blood by Automated count 0.75 10*3/uL 0-0.8 [facility] Eosinophils [#/volume] in Blood by Automated count 0.42 10*3/uL 0-0.5 [facility] Basophils [#/volume] in Blood by Automated count 0.07 10*3/uL 0-0.2 [facility] Nucleated erythrocytes/100 leukocytes [Ratio] in Blood by Automated count 0 /100{WBCs} 0-0 [facility] ID Date Data Source [id number] 01/24/2020 02:14:47 PM T [facility] Name Value Range Interpretation Code Description Data Neva rce(s) Supporting Document(s) Albumin [Mass/volume] in Serum or Plasma by Bromocresol green (BCG) dye binding method 4.2 g/dL 3.5-5.2 [facility] Bil[facility].total [Mass/volume] in Serum or Plasma 0.5 mg/dL <1.2 [facility] Calcium [Mass/volume] in Serum or Plasma 9.0 mg/dL 8.8-10.2 [facility] Chloride [Moles/volume] in Serum or Plasma 96 mmol/L 98-107 L [facility] Creatinine [Mass/volume] in Serum or Plasma 0.78 mg/dL 0.70-1.20 [facility] Glucose [Mass/volume] in Serum or Plasma 81 mg/dL 70-140 [facility] Alkaline phosphatase [Enzymatic activity/volume] in Serum or Plasma 91 U/L 40-129 [facility] Potassium [Moles/volume] in Serum or Plasma 3.8 mmol/L 3.4-5.1 [facility] Protein [Mass/volume] in Serum or Plasma 6.8 g/dL 6.4-8.3 [facility] Sodium [Moles/volume] in Serum or Plasma 132 mmol/L 136-145 L [facility] Aspartate aminotransferase [Enzymatic activity/volume] in Serum or Plasma 12 U/L <40 [facility] Urea nitrogen [Mass/volume] in Serum or Plasma 10 mg/dL 8-23 [facility] Osmolality of Serum or Plasma by calculation 272 mosm/kg 275-300 L [facility] Creatinine/Urea nitrogen [Mass Ratio] in Serum or Plasma 13 [facility] Bicarbonate [Moles/volume] in Serum 25 mmol/L 22-29 [facility] Alanine aminotransferase [Enzymatic activity/volume] in Seru m or Plasma 10 U/L <41 [facility] Anion gap 3 in Serum or Plasma 11 mmol/L 8-15 [facility] Albumin/Globulin [Mass Ratio] in Serum or Plasma 1.6 [facility] Glomerular filtration rate/1.73 sq M pre dicted among non-blacks [Volume Rate/Area] in Serum or Plasma by Creatinine-based formula (MDRD) >6 0 [facility] Glomerular filtration rate/1.73 sq M pre dicted among blacks [Volume Rate/Area] in Serum or Plasma by Creatinine-based formula (MDRD) >60 [facility] ID Date Data Source [id number] 01/24/2020 02:14:47 PM [facility] Name Value Range Interpretation Code Description Data Neva rce(s) Supporting Document(s) Thyrotropin [Units/volume] in Serum or Plasma 3.590 u[IU]/mL 0.270-4. 200 [facility] ID Date Data Source [id number] 01/24/2020 02:36:23 PM [facility] Value Range Interpretation Code Description Data Neva rce(s) Supporting Document(s) Ferritin [Mass/volume] in Serum or Plasma 23 ng/ml 30-400 L [facility] ID Date Data Source [id number] 01/24/2020 02:36:23 PM [facility] Value Range Interpretation Code Description Data Neva rce(s) Supporting Document(s) Iron [Mass/volume] in Serum or Plasma 105 ug/dl 59-158 [facility] Transferrin [Mass/volume] in Serum or Plasma 306 mg/dL 200-360 [facility] Iron binding capacity [Mass/volume] in Serum or Plasma 425 ug/dl 228 -428 [facility] Iron saturation [Mass Fraction] in Serum or Plasma 25.0 % 20-55 [facility] ID Date Data Source [id number] 01/13/2020 11:13:28 AM EDT [facility] Name Value Range Interpretation Code Description Data Neva rce(s) Supporting Document(s) Progress Note [facility] OBDXJt4oEzJKXbGs40/BRBakXEDtk7WiYNqpEDa9FBfrJKFpM1PrEBR9nZ9jRBK5HIaIImPgZoLoVaR6 lbm [file] RVTkLYNxPRRqOti2ZDOxQxR+DJ3vITh+Zi0Rz0BmauU5hkSpJZqcZPG3ZL3KSXKIF4LLUw== ID Date Data Source [id number] 01/13/2020 11:13:23 AM EDT [facility] Name Value Range Interpretation Code Description Data Neva rce(s) Supporting Document(s) Progress Note [facility] FSFJOx7dAjMOGjOp87/RMDzbCXUzn3PmRQtrRCi5UAcpGOKjL5SsJNA5eD0lOBK4TRvYJvZcPcHoWyH1 lbm [file] y5+f3vE45kEp8cBFqB6yaiHI3eBfnTG8Sngk/sJ8Vut2xHld3cN2/v4x4AjhRB8yxUy/Pt+dzv+vp home health+[place] [file] 9+wP0P/DqWcqIxdtuwmhFX38MFK8JUzMKmN8QDurMUoxrXlR1//FDqKBvn8K+z0PQcA2/Ann-Marie+Zoq5o14 5rl55X/Bqbshp6Qkyy8m+7P+NUe/2x99//ePevBfru tfs/3Nm6s7h3YfARLu1/9374obMzn/a4I6GI82ofH405z9E0bQo6vwsqr2jcWbgODji0c/PF//V+2BsM Zz/+0K02cDid2caTiPF20wkissk2c90Qrft9PIDhd8N1TGdPVNC+V6PrmCekNz9Ch4BQZ+/4qIK9YEu0 3scX+7cFwu75T1a56pgutO5t4eiy42O3qE3FRr8j7w [file] 0gDQo+Zb1Dn6SnerH0hjWcMFr1NHg8Io6SZXCPU0EFFy== ID Date Data Source [id number] 01/03/2020 12:24:31 PM EDT [facility] Name Value Range Interpretation Code Description Data Neva rce(s) Supporting Document(s) Leukocytes [#/volume] in Blood by Automated count 6.0 10*3/uL 4-10 [facility] Erythrocytes [#/volume] in Blood by Automated count 3.98 10*6/uL 4.6- 6.1 L [facility] Hemoglobin [Mass/volume] in Blood 11.8 g/dL 13.5-18 L [facility] Hematocrit [Volume Fraction] of Blood by Automated count 34.4 % 4 1-53 L [facility] Erythrocyte mean corpuscular volume [Entitic volume] by Auto mated count 86.5 fL 80-96 [facility] Erythrocyte mean corpuscular hemoglobin [Entitic mass] by Automated count 29.8 pg 27-33 [facility] Erythrocyte mean corpuscular hemoglobin concentration [Mass/volume] by Automated count 34.4 g/dL 32.0-36.0 [facility] width [Ratio] by Automated count 14.1 % 11.5-14.5 [facility] Platelets [#/volume] in Blood by Automated count 211 10*3/uL 150-400 [facility] Differential cell count method - Blood [facility] Neutrophils/100 leukocytes in Blood by Automated count 72 % [facility] Lymphocytes/100 leukocytes in Blood by Automated count 11 % [facility] Monocytes/100 leukocytes in Blood by Automated count 12 % [facility] Eosinophils/100 leukocytes in Blood by Automated count 4 % [facility] Basophils/100 leukocytes in Blood by Automated count 1 % [facility] Neutrophils [#/volume] in Blood by Automated count 4.31 10*3/uL 1.8-7 .0 [facility] Lymphocytes [#/volume] in Blood by Automated count 0.68 10*3/uL 1.2-4 .0 L [facility] Monocytes [#/volume] in Blood by Automated count 0.73 10*3/uL 0-0.8 [facility] Eosinophils [#/volume] in Blood by Automated count 0.22 10*3/uL 0-0.5 [facility] Basophils [#/volume] in Blood by Automated count 0.05 10*3/uL 0-0.2 [facility] Nucleated erythrocytes/100 leukocytes [Ratio] in Blood by Automated count 0 /100{WBCs} 0-0 [facility] ID Date Data Source [id number] 01/03/2020 01:03:35 PM EDT [facility] Name Value Range Interpretation Code Description Data Neva rce(s) Supporting Document(s) Albumin [Mass/volume] in Serum or Plasma by Bromocresol green (BCG) dye binding method 3.9 g/dL 3.5[facility].2 [facility] Bil[facility] [Mass/volume] in Serum or Plasma 0.3 mg/dL <1.2 [facility] Calcium [Mass/volume] in Serum or Plasma 8.5 mg/dL 8.8-10.2 L [facility] Chloride [Moles/volume] in Serum or Plasma 100 mmol/L 98-107 [facility] Creatinine [Mass/volume] in Serum or Plasma 0.73 mg/dL 0.70-1.20 [facility] Glucose [Mass/volume] in Serum or Plasma 87 mg/dL 70-140 [facility] Alkaline phosphatase [Enzymatic activity/volume] in Serum or Plasma 77 U/L 40-129 [facility] Potassium [Moles/volume] in Serum or Plasma 3.6 mmol/L 3.4-5.1 [facility] Protein [Mass/volume] in Serum or Plasma 6.3 g/dL 6.4-8.3 L [facility] Sodium [Moles/volume] in Serum or Plasma 135 mmol/L 136-145 L [facility] Aspartate aminotransferase [Enzymatic activity/volume] in Serum or Plasma 14 U/L <40 [facility] Urea nitrogen [Mass/volume] in Serum or Plasma 13 mg/dL 8-23 [facility] Osmolality of Serum or Plasma by calculation 279 mosm/kg 275-300 [facility] Creatinine/Urea nitrogen [Mass Ratio] in Serum or Plasma 17 [facility] Bicarbonate [Moles/volume] in Serum 25 mmol/L 22-29 [facility] Alanine aminotransferase [Enzymatic activity/volume] in Seru m or Plasma 11 U/L <41 [facility] Anion gap 3 in Serum or Plasma 10 mmol/L 8-15 [facility] Albumin/Globulin [Mass Ratio] in Serum or Plasma 1.6 [facility] Glomerular filtration rate/1.73 sq M pre dicted among non-blacks [Volume Rate/Area] in Serum or Plasma by Creatinine-based formula (MDRD) >6 0 [facility] Glomerular filtration rate/1.73 sq M pre dicted among blacks [Volume Rate/Area] in Serum or Plasma by Creatinine-based formula (MDRD) >60 [facility] ID Date Data Source [id number] 01/03/2020 01:03:35 PM [facility] Name Value Range Interpretation Code Description Data Neva rce(s) Supporting Document(s) Thyrotropin [Units/volume] in Serum or Plasma 5.900 u[IU]/mL 0.270-4. 200 H [facility] ID Date Data Source [id number] 01/03/2020 02:51:49 PM [facility] Name Value Range Interpretation Code Description Data Neva rce(s) Supporting Document(s) Thyroxine (T4) free [Mass/volume] in Serum or Plasma 1.28 ng/dL 0.93- 1.70 [facility] ID Date Data Source [id number] 01/03/2020 03:20:46 PM [facility] Name Value Range Interpretation Code Description Data Neva rce(s) Supporting Document(s) Triiodothyronine (T3) [Mass/volume] in Serum or Plasma 83.50 ng/ dL 80.00-200.00 [facility] ID Date Data Source [id number] 12/29/2019 04:35:34 PM [facility] CT THORAX WITH CONTRAST [id number] RESUL TInterpreted by:Silverio Patel, MDPROCEDURE INFORMATION: Exam: [...] route: IV; COMPARISON: CT THORAX WITH CONTRAST [id number] 09/12/2019 4:56 PM FINDINGS: Tubes, catheters and [...] 3. Stable tiny subpleural nodule within the lingula.[facility] chest imaging society guidelines do not apply [...] rce(s) Supporting Document(s) ID Date Data Source [id number] 12/18/2019 12:08:[address] [facility] Name Value Range Interpretation Code Description Data Neva rce(s) Supporting Document(s) Progress Note [facility] UNRGAa9uWxAIApMz87/XJLuwHXEwz9PlQQzaLTp5JIeqBRGbM7KiOIX4sZ5wTIA6BRfIEaYzXvVfElWw lbm [file] AgICAgICAgICAgICAgICAgICAgICAgICAgICAgICAgICAgICAgICAgICAgICAgICAgICAgICAgICAgIC AgICAgICAgICAgICAgICAgICAgICAgICAgICAgICAgICANCiAgICAgICAgICAgICAgICAgICAgICAgIC AgICAgICAgICAgICAgICAgICAgICAgICAgICAgICAg ICAgICAgICAgICAgICAgICAgICAgICAgICAgICAgICAgICAgICAgICAgICANCiAgICAgICAgICAgICAg ICAgICAgICAgICAgICAgICAgICAgICAgICAgICAgICAgICAgICAgICAgICAgICAgICAgICAgICAgICAg ICAgICAgICAgICAgICAgICAgICAgICAgICANCiAgIC AgICAgICAgICAgICAgICAgICAgICAgICAgICAgICAgICAgICAgICAgICAgICAgICAgICAgICAgICAgIC AgICAgICAgICAgICAgICAgICAgICAgICAgICAgICAgICAgICANCiAgICAgICAgICAgICAgICAgICAgIC AgICAgICAgICAgICAgICAgICAgICAgICAgICAgICAg ICAgICAgICAgICAgICAgICAgICAgICAgICAgICAgICAgICAgICAgICAgICAgICANCiAgICAgICAgICAg ICAgICAgICAgICAgICAgICAgICAgICAgICAgICAgICAgICAgICAgICAgICAgICAgICAgICAgICAgICAg ICAgICAgICAgICAgICAgICAgICAgICAgICAgICANCi AgICAgICAgICAgICAgICAgICAgICAgICAgICAgICAgICAgICAgICAgICAgICAgICAgICAgICAgICAgIC AgICAgICAgICAgICAgICAgICAgICAgICAgICAgICAgICAgICAgICANCiAgICAgICAgICAgICAgICAgIC AgICAgICAgICAgICAgICAgICAgICAgICAgICAgICAg ICAgICAgICAgICAgICAgICAgICAgICAgICAgICAgICAgICAgICAgICAgICAgICAgICANCiAgICAgICAg ICAgICAgICAgICAgICAgICAgICAgICAgICAgICAgICAgICAgICAgICAgICAgICAgICAgICAgICAgICAg ICAgICAgICAgICAgICAgICAgICAgICAgICAgICAgIC ANCiAgICAgICAgICAgICAgICAgICAgICAgICAgICAgICAgICAgICAgICAgICAgICAgICAgICAgICAgIC AgICAgICAgICAgICAgICAgICAgICAgICAgICAgICAgICAgICAgICAgICANCjw/hJQxB3uczXXagqT0A2 jqVv6ANb3SPG3ku1GzLQPpBEniiqRqPgzXElSeSMJu JfvMMzj2PNtlBF9YyUEiN6LpG9KqUPweBZ5ZGJLiXCGvpYWmQESxYYZsDoX2QBTdTSxlCM6WbPFyZNzl MCPxPMSiJY0VXENwY812zuPsZT0DIb8UJoYwWU9sui6PLMkhDPSyAdzDHyy3AZcnWP6QhCLhbPNrBTIa IYCBNiDoT7why7CxLbYtCTYTAFtnCK9El7HnbBPbQT o+Wr4PGR3pc4LyUEvcEAFsWZ3ywq4BTFkFDwOcM2QaiDfaAEIrs3siLPRkEX7bjQJcPGI7LLL4SZEpDL 5sIGQPilI8jDVoyfeyDSTnWTPiMx4gRO2iKEGvWLBvReH4EHTANF4HUPHmGHRrlMEkMTBhUJHZUR0BAS soSUC0PTHlrhDcrSBeNPfkLM5VLKLxnlAxLQycTACY DQo+Al2WIQ9pc1OxLSchLYAlUU9iyp0RSLdLSgTcZ7V4wDXlR1W9EQfmVc9RUOBxVRRvHKweUAJHFWal RB9XSZ3lbkG2TF0ApLPdPRZjFIVhbBQnJAq7Y02fuGVpTJufFT9MGQZ+Delbert+Ga7PLLDzHWBvCILhNpZo QLVAEwVrB9FiG7NCn3BuT7RbEE97hMvitcRpJPfdEX 4WOQ6mWTLuEDVQHH2CiDQtlW4kmhRzVFZpGFMAElGxP64jeRGbVELvQXN5USQuBb9KNOCbF1XwlnSgtN ybidCvHNZlIQMFOY0VDWndqzSedKItpMaaVM28vMhjIL9ZRh0MBdLnFD5lrt3HzHXdVl0DDJRoWl5CFF XzSECiKGLzEQY0OXEiKxWcVOiiMEVxPUMnWGU1GHZd CLHyWW3YBuOkTROpYDofYmKjJKFjLBEiur4EKNZrSTVeGQc4VPJyKHMnMUYoEVxsCNSoPKVeIGE8JFMb YEJfZO1XUjPkMUOhMUC9PKdqMFArFJAgrg0EUJKwVULzDyN3HhNeGQWgIXSgJCvxKVVpGWPrGBIoYMEv ERUhVP4RGoZpUYGaDUAqAAnmLBIwNQCrvk6TQNVeVR AfWjAeTQJqUACsSDTkAEzxWSAgIYL2Vcq3UZWmOQAnVD6RGiRnVQCtPMF4SMktRBDeEPIbvu0EHATvEQ RdKIw4DSDoEGIcUNYuRJjpXEObWCY5HWXdVEMwMDNfZP9ADsNiEHZzFOR4MGCbUULaJGSzvu5WJFSlEJ HhGzS7GWQaCZXtWSEvUWpzEPDeVZM4PGh8CHDxSCGs WG4ALkDsAYTvJYopDIVkMXTrOTPbcs8LEEDrGPOsLbW9LXEyKSJfKGIfSHhgRMChNFM7FRu2QRHoNUOt ZZ6KKrNiZBGqZXb7XJInFVFjFXKvru1LNGYyDZUbTCVvKlYeGWHlABKfWXv6rzPxlDFbCJk5IH4IL0Ap wxMyRmKYKx4Pk429FZQeEBHlNg3ZB7ytGh6jUQZlJX WTXf5ESPm6HVokJltlKIhuZELdUPR9ZuV6GFUeAGv3KVP2RXSgBnG+CEo2IFKvO3LkURF8NELiTjHpPn SuN1J1SPlxGuV5RPSyBP6vJMDJBz5+MWicwWIsiWesOCTSXoS2HqS8FZmhPLDSPj4L ID Date Data Source [id number] 12/13/2019 01:45:[address] [facility] Name Value Range Interpretation Code Description Data Neva rce(s) Supporting Document(s) Progress Note [facility] OYQJTj6fZpMLQhYl18/QKGjkBZSdb0FbUGtlWXg1GHfoYXCrR5WyZHE7zC5gHML8RHkGJaZhKyMeOaD2 lbm YiIpqXDkLrWSJrVjwJPzPxUNtgNztcqLNoXJ5TqJG5KMHbD01uXSOrBHTqI4GeHZZyFIR+Ln9LUXOmsN UvHL8DEwlJ5W03j5tWBp+/QL/OIkIh5PHO5GHkDWvSdkVqVt9qR4ith/cSG9Do1bYCahraru/Bq3cPq9 qA8JtrIFFllBWUYvkkBxixp2As+6CE0H/+JQaubRiG tS7ED93gbhTb/J39hu4xqolJ/GZ5Kw3dmvPd/IN24ULiW6UwTXqhKXUGC2GrpKHwOKwBB00ucOG42kdx OmOsEojZeDRLlnZuQY11nUeKFortRikv+XMx/UIxWzQ3ubjGu9Fyche0aERZrupYdgeFy3tImIvpK5GO yK297lqFojiHR98dNyx7vFKOjYQNwHyn6XsrClnmdb d+AvtGQARshXQlC87wKCJzWl3o5LsFpiMRmn7jCGzULGsg3KMNch+oolNzWRNo1yIrKhDIOoOP3RAAIP QigdYCpmWJYe9iRIjWet2XmH44/ibqaqtnkAfQ6s/2nKdEO5BjGYUnaP2nbrP7Aq5S0iuZittY7ERPr9 c6xdAECs4sWEd9Ri4WyjwX8K10EWuNunNKnX88kMAm MSG8DAq2WjgK8ItZkA5f/RX7fZTJmzYOrKhaM/00gj5abRTlfKGoGzfsJeBkssKH/e1pOEX1+b+O5uHV m5XOoiMQoEJ38jl1KbE9WV+0NiuRGVgNj2fL3x31E4ciLf7Q77Nw1NSRAKcMcKUqbqofxCeXzjnfnLOm lNLFa/TuRExtrDf4wiZRkVJkyR5IRDE5B0WDbWJsCR J2x3RY9XVUwyvrvPKvX2P41W//zBTkucfYVfauMpQhhNyzbHF+sokZsBTwPI4+QolnoH8AwnNgUgBkLa qFn8CsRVa9XXgFN0KV4TkrctVeeCMrXIxqrUg7VTD8TTr1LST+NupDVu0zda16R5ruZgmmD7UrwecD2T /N9QxP6NGm+qMa71qwKI0Ois4X9nDUYYgDhb1s+Nisreen [file] [id number]= ID Date Data Source [id number] 12/13/2019 01:09:[address] [facility] Name Value Range Interpretation Code Description Data Neva e(s) Supporting Document(s) Leukocytes [#/volume] in Blood by Automated count 5.8 10*3/uL 4-10 [facility] Erythrocytes [#/volume] in Blood by Automated count 3.91 10*6/uL 4.6- 6.1 L [facility] Hemoglobin [Mass/volume] in Blood 11.8 g/dL 13.5-18 L [facility] Hematocrit [Volume Fraction] of Blood by Automated count 34.3 % 4 1-53 L [facility] Erythrocyte mean corpuscular volume [Entitic volume] by Auto mated count 87.7 fL 80-96 [facility] Erythrocyte mean corpuscular hemoglobin [Entitic mass] by Automated count 30.2 pg 27-33 [facility] Erythrocyte mean corpuscular hemoglobin concentration [Mass/volume] by Automated count 34.4 g/dL 32.0-36.0 [facility] distribution width [Ratio] by Automated count 13.5 % 11.5-14.5 [facility] Platelets [#/volume] in Blood by Automated count 233 10*3/uL 150-400 [facility] Differential cell count method - Blood [facility] Neutrophils/100 leukocytes in Blood by Automated count 72 % [facility] Lymphocytes/100 leukocytes in Blood by Automated count 11 % [facility] Monocytes/100 leukocytes in Blood by Automated count 12 % [facility] Eosinophils/100 leukocytes in Blood by Automated count 4 % [facility] Basophils/100 leukocytes in Blood by Automated count 1 % [facility] Neutrophils [#/volume] in Blood by Automated count 4.22 10*3/uL 1.8-7 .0 [facility] Lymphocytes [#/volume] in Blood by Automated count 0.62 10*3/uL 1.2-4 .0 L [facility] Monocytes [#/volume] in Blood by Automated count 0.68 10*3/uL 0-0.8 [facility] Eosinophils [#/volume] in Blood by Automated count 0.21 10*3/uL 0-0.5 [facility] Basophils [#/volume] in Blood by Automated count 0.05 10*3/uL 0-0.2 [facility] Nucleated erythrocytes/100 leukocytes [Ratio] in Blood by Automated count 0 /100{WBCs} 0-0 [facility] ID Date Data Source [id number] 12/13/2019 02:05:55 PM [facility] Name Value Range Interpretation Code Description Data Neva rce(s) Supporting Document(s) Albumin [Mass/volume] in Serum or Plasma by Bromocresol green (BCG) dye binding method 4.1 g/dL 3.5-5.2 [facility] Bil[facility].total [Mass/volume] in Serum or Plasma 0.3 mg/dL <1.2 [facility] Calcium [Mass/volume] in Serum or Plasma 8.8 mg/dL 8.8-10.2 [facility] Chloride [Moles/volume] in Serum or Plasma 91 mmol/L 98-107 L [facility] Creatinine [Mass/volume] in Serum or Plasma 0.69 mg/dL 0.70-1.20 L [facility] Glucose [Mass/volume] in Serum or Plasma 102 mg/dL 70-140 [facility] Alkaline phosphatase [Enzymatic activity/volume] in Serum or Plasma 81 U/L 40-129 [facility] Potassium [Moles/volume] in Serum or Plasma 3.8 mmol/L 3.4-5.1 [facility] Protein [Mass/volume] in Serum or Plasma 6.5 g/dL 6.4-8.3 [facility] Sodium [Moles/volume] in Serum or Plasma 128 mmol/L 136-145 L [facility] Aspartate aminotransferase [Enzymatic activity/volume] in Serum or Plasma 14 U/L <40 [facility] Urea nitrogen [Mass/volume] in Serum or Plasma 12 mg/dL 8-23 [facility] Osmolality of Serum or Plasma by calculation 266 mosm/kg 275-300 L [facility] Creatinine/Urea nitrogen [Mass Ratio] in Serum or Plasma 17 [facility] Bicarbonate [Moles/volume] in Serum 26 mmol/L 22-29 [facility] Alanine aminotransferase [Enzymatic activity/volume] in Seru m or Plasma 11 U/L <41 [facility] Anion gap 3 in Serum or Plasma 11 mmol/L 8-15 [facility] Albumin/Globulin [Mass Ratio] in Serum or Plasma 1.7 [facility] Glomerular filtration rate/1.73 sq M pre dicted among non-blacks [Volume Rate/Area] in Serum or Plasma by Creatinine-based formula (MDRD) >6 0 [facility] Glomerular filtration rate/1.73 sq M pre dicted among blacks [Volume Rate/Area] in Serum or Plasma by Creatinine-based formula (MDRD) >60 [facility] ID Date Data Source [id number] 12/13/2019 02:22:[address] [facility] Name Value Range Interpretation Code Description Data Neva rce(s) Supporting Document(s) Thyrotropin [Units/volume] in Serum or Plasma 4.640 u[IU]/mL 0.270-4. 200 H [facility] ID Date Data Source [id number] 11/29/2019 01:15:00 PM EST [place] ([facility]) Name Value Range Interpretation Code Description Data Neva rce(s) Supporting Document(s) Albumin [Mass/volume] in Blood by Bromocresol purple ( BCP) dye binding method 4 g/dl Albumin [place] ([facility]) Note: Responsible Observer: AW Alkaline Phos 86 IU/L Alkaline Phos [place] ([facility]) Note: Responsible Observer: AW ALT 10 IU/L ALT [place] ([facility]) Note: Responsible Observer: AW AST 13 IU/L AST [place] ([facility]) Note: Responsible Observer: AW Urea nitrogen [Moles/volume] in Blood 12 mg/dl Urea Nitrogen [place] ([facility]) Note: Responsible Observer: AW Calcium [Moles/volume] in Urine collected for unspecified durati on 9.1 mg/dl Calcium [place] ([facility]) Note: Responsible Observer: AW Chloride [Moles/volume] in Serum, Plasma or Blood 95 mmol/L Below low normal Chloride [place] ([facility]) Note: Responsible Observer: AW CO2 25 mmol/L CO2 [place] ([facility]) Note: Responsible Observer: AW Creatinine [Moles/volume] in Vitreous fluid 0.6 mg/dl Creatinine [place] ([facility]) Note: Responsible Observer: AW EGFR - AfricanAm > 60 N/A EGFR - AfricanAm [facility] ([facility]) Note: Responsible Observer: AW EGFR - Non AF AM > 60 N/A EGFR - Non AF AM [facility] ([facility]) Note: Responsible Observer: AW Glucose [Mass/volume] in Urine collected for unspecified duration 9 5 mg/dl Glucose [place] ([facility]) Note: Responsible Observer: AW Potassium [Mass/volume] in Blood 3.5 mmol/L Pot assium [place] ([facility]) Note: Responsible Observer: AW Sodium [Moles/volume] in Serum, Plasma or Blood 129 mmol/L Below low normal Sodium [place] ([facility]) Note: Responsible Observer: AW Total Bilirubin 0.5 mg/dl [facility] Bil[facility] Note: Responsible Observer: AW Total Protein 5.7 g/dl Below low normal Total Protein [facility] ([facility]) Note: Responsible Observer: AW ID Date Data Source [id number] 11/18/2019 10:14:[address] [facility] Name Value Range Interpretation Code Description Data Neva rce(s) Supporting Document(s) Progress Note [facility] OPVLUv0iVxVLWwEw71/ZDQhyADVro7LaHBvdOEw3PGkaBAExS6TgHFJ7dU4xQQQ1OLgYWrYlMyDwMGZf [facility] [file] TDUo+xeMiI/5ueP7Ig4BNbMo/8sy5nYVjSUSWso9blFeGdCpvJ7XtVHGRcYnCJ/VP DELIVERY/V56JogccWrNk+d [file] ICAgICAgICAgICAgICAgICAgICAgICAgICAgICAgIC BsNCAgKNXdOQAkYNIvRIOuZWNxDNElJAGoVKPpSZLxSCOuWOKrFFZoABWlCEVnJT4XHFCtJGKjZYOhZS AgICAgICAgICAgICAgICAgICAgICAgICAgICAgICAgICAgICAgICAgICAgICAgICAgICAgICAgICAgIC VuQQCwGUWhXHPxWPPxQEEbOIRdKVAcWNOnIGYrZC8N ICAgICAgICAgICAgICAgICAgICAgICAgICAgICAgICAgICAgICAgICAgICAgICAgICAgICAgICAgICAg LSGmFKZfZRMoXMTbXTBmCQTjEUViEUSfLOKmBKJxJQPvXCTzEVAxJI8HXSXdCGVwRKBfRFQmYDGpJXTr ICAgICAgICAgICAgICAgICAgICAgICAgICAgICAgIC UkMKOrOTQpLGUyVPCwWYOeHOEgGFKrHKVpFXWxPVPbFTPaYCWoSOMvRSTlOJGoMDSiYE2SCSVdNQWrLA AgICAgICAgICAgICAgICAgICAgICAgICAgICAgICAgICAgICAgICAgICAgICAgICAgICAgICAgICAgIC AgICAgICAgICAgICAgICAgICAgICAgICAgICAgICAg ZV0NTTYiAUWuZQZlSXWvKBObBXFdGDHuEJUoBBGrWKZvADCjKKYjSJZuTBMiSZBwLSTxGBNaDKLdHBZd TBXfSFYcFHGuMAHkIBUiADVkQORvIZDlCZGeUOHgCQSsCHMfKIBkMKFmNP8MIACaLIYoJONkQOAjOLMw ICAgICAgICAgICAgICAgICAgICAgICAgICAgICAgIC WtFWHvLVAyTWFuXDYbILOjFBXvQWArZIGtNJNnHGMpPOZzTKQrXEFlTKAxTUIjKPYkVKWrZI3CSDXlZF AgICAgICAgICAgICAgICAgICAgICAgICAgICAgICAgICAgICAgICAgICAgICAgICAgICAgICAgICAgIC AgICAgICAgICAgICAgICAgICAgICAgICAgICAgICAg IKNbZD3UZEIsCLEkYDKtZZLuDKJiLZXyRJQkHFZdWKUrMDDeBNIlUEBsADBwJLFvCZVvINRqTMDeGDMa UABrNVCvMMAwNWNcSJTmKLQzXRPkKCSaOYWhMAUrTHGdFLDlZTAkDGDqUCUnXW1PCKQzDTWuTUOmTLIp ICAgICAgICAgICAgICAgICAgICAgICAgICAgICAgIC WeTAUcAWGpVLEoJIZeBYPrZFUcFCYnHVElHDLvWQNyCOYtIDKqGXVxKEJaRKGpBRUvCDVqESDkXX5YHD 47iUPvy3L2PXTnHL6apzr/Jo7BBPnhtiBmtCFdWQ1EQpZlWB0hge3VTkZyDL8gdz9BZDbWPaCeT8N8yT KbJBXcSTXSNcBmD02uANhnLu96ZOwbZMBzOnPyTMy5 Wy8PAxNpS4poXLXdUxI5ULFxYhK1VELbVrNcFWLfZOGrSIBwTQTZFUX3VCPxOtVwUnObEXJyLZdiPYNF AQKxLSAuUzZwMOxpSY4Ce5KnsEC0ZNs+Gy5VHY5hy2HoBXmsLiIdYU9wsz3QSTfUWmPgD2OhsuT7FKF2 MIDbEj2DHBBgERDfnMTwPWVeVHCUUgWmO0XfjH02FX ENCj4+KXxmfgRfJcmZDwC2DOGed8InLUa4VS6XXBFuKPx1pQBuWNCrZ6Iot6EaTz59RDCpRntbWWFhJM synFVBVBQxAXZyiIlfGjNuOKOjGW6jMA7yGUAlVQMxLbL2NFIXYF6WNXPtVZAmhQDzXVNqLSGXRS0OXO woGFB8OSQbeoJzfENdQRynUO5GQSEbubAbLeqeCBRP DQo+Vy1ITX3yg9SwRMb7TMBlm5IfFMm5QT2IQTWjLMifZVYmWZ6ll8LdD7Q1WtB5rMDfL8rimnjkI9Yt iiJrrrCmMLWrJBFoRR3GSS8WZS6MIOIhGAslWW6GRGQ2NLh4GyD9BXVgSEQnNJBbAI8aDPlxUU0XVTf3 U3ClT7GRVCKdMDIHIDDdqTV4JKCADh5WW2RRTedPOS SJUw6OSyYrD7END8eHB59HXB1XZDZ+PiANCj4+QOgibrBqVecGQsZ2CSNeo7DqCXq6HN2AWDZyLSopMW 5NBFDjbW6yLBtnCU8KIqLoWTDnBRTNSnMbH26lsHMrAXb8D5HcWtAnMFWsMermNAAuZEwrBqCwFFYhEw BdDQogID4+ID4+VZuiNH3KWKdpuhDkIWMdQq3MIZCb EEByWS1tHVHvCHOuN6O9oVorVGJSHfMaZ3pvvoawOE3lKLZlC764hCuzdiQoNRN1MEIdVf7YMKMdNGU8 MHWryWVeGhUkXTHUUBlqRU7TlIStABN1sX2mGYqjYXNvNKIaP1tRUbBtwTtqVD59gJsajhLcdXZuEKa+ Kf8WQU1mn3WjYTi1weLyORprRWSqMQsjWTJzXRDvIL FyYBA8QQP1NSTGPiVkGGClJDQqZGvmRDVvCPDdfs8XIVAvFTE1GvH5ENTrONSlKNSmKCdjAFSuCDY9TQ j1REYvOSPvNF1KLyIjFHHyMPExHRpdHZPyFQXwfl1GXUPsTKVwOuPeYSBlNQTaFLInUXueBFAcDKM2XF Z2AQBmLVPtVF6JNlIaRRNoNJJ4LSIbMLQzFYOjhm1F ADJoWDMvDug1HbOyONFnXRHrVSbqVIZpHGW4OImhRUVjKOWvWK2UEmWjYVDrABS0UkLqNGSbUAXpic3T NVUqSNNwOVbcBSVjTTAaLMExZZuyIKOiQEA7NYImRJQtYBLqAQ6KTkPoBSKkWXU5EkukZRYzZNBlvm9X QTYfGHStCbu9GOLeDPViJMUiKXjzEAQnWXQ1XTJrCG OqKGYxAV2OCfJfNXLaKqD2VPTcGEAuGHPdpz1WASFxVUKeLNVpOQQfPEYbTZCqMIawCZAuFQE8RUA6VL VxXITdFB4VDdQoXLYhZhAzYgDbDTPeAJIjll8AYJQzQYEfMnw9BIBhRPEgGHUyNBjwOEBdBAU7BMowQI VuNXGoEI9HNuVrVJOqLbn4CNPzVAUfDSNeph4JVDEc TXIlNESbXyPhNSAlHOCsBAvgSLIvTDP7LoAaUXWgAOPpLZ3KWpBuNAIlRaznAvtyOPQmBFLjvt3WQTEj NTJoRXU6RZEhYAEsVINbHRsnWEGiWPP6IeE4SLMrCMBjRO1KZjDeAOPrVYXtTFhkIRKsSZNhdw2QJGTb KWJ5NSCbVNPxJUCeLTZnUYcdOEOqHGCdKyWaEMEkRX IuAH8ETcSjWJNvXYE9NXBgBQXuBTSqlf8PTNCxRVQ1CaDuDZHbAFOqDNVmLXzsLBYpGBHpJGnwNFUgQH MfVY4EDuZiETYhFUMzNdFqLMGoDVQrbo1ULGIrQXP5HkYvMDRiEIWrTEMqOEwnQVEvWWJzVeW3GRQzOG TpPI0ZVfBsZGNzKHScJATqKJWjRQZhyg3UELVtXRD5 BCStYvSnDTNzSGUoADgcTZDbEGY3ExWyQXHcVPMeCG3KMrSjHKmzYVNKXxu9DTfjX9r2MEH8KD3PQ0Fx p5GnDorhCITOGTljMS5gygVhWRRsYk6RJ8gJWxqvNtIrIdV0YQubQ1BbNelvNsEvTBXaNYSxUlPbEqQ3 Nb5gTNJcMaDbAmsiNYO5JhGbCCTeWpO2KzJ1MTKpTI UaVRQkKlJaSI8VJl1OHqQ7HTO0pDIhCk4NTXB1BICVLkReCJ5RFFb= ID Date Data Source [id number] 11/17/2019 12:47:54 PM EST [facility] Name Value Range Interpretation Code Description Data Neva rce(s) Supporting Document(s) Leukocytes [#/volume] in Blood by Automated count 6.0 10*3/uL 4-10 [facility] Erythrocytes [#/volume] in Blood by Automated count 3.68 10*6/uL 4.6- 6.1 L [facility] Hemoglobin [Mass/volume] in Blood 11.6 g/dL 13.5-18 L [facility] Hematocrit [Volume Fraction] of Blood by Automated count 33.8 % 4 1-53 L [facility] Erythrocyte mean corpuscular volume [Entitic volume] by Auto mated count 91.8 fL 80-96 [facility] Erythrocyte mean corpuscular hemoglobin [Entitic mass] by Automated count 31.4 pg 27-33 [facility] Erythrocyte mean corpuscular hemoglobin concentration [Mass/volume] by Autom[facility] 34.2 g/[facility].0[facility] width [Ratio] by Automated count 13.5 % 11.5-14.5 [facility] Platelets [#/volume] in Blood by Automated count 234 10*3/uL 150-400 [facility] Differential cell count method - Blood [facility] Neutrophils/100 leukocytes in Blood by Automated count 71 % [facility] Lymphocytes/100 leukocytes in Blood by Automated count 11 % [facility] Monocytes/100 leukocytes in Blood by Automated count 13 % [facility] Eosinophils/100 leukocytes in Blood by Automated count 4 % [facility] Basophils/100 leukocytes in Blood by Automated count 1 % [facility] Neutrophils [#/volume] in Blood by Automated count 4.34 10*3/uL 1.8-7 .0 [facility] Lymphocytes [#/volume] in Blood by Automated count 0.67 10*3/uL 1.2-4 .0 L [facility] Monocytes [#/volume] in Blood by Automated count 0.76 10*3/uL 0-0.8 [facility] Eosinophils [#/volume] in Blood by Automated count 0.22 10*3/uL 0-0.5 [facility] Basophils [#/volume] in Blood by Automated count 0.06 10*3/uL 0-0.2 [facility] Nucleated erythrocytes/100 leukocytes [Ratio] in Blood by Automated count 0 /100{WBCs} 0-0 [facility] ID Date Data Source [id number] 11/17/2019 01:50:19 PM [facility] Name Value Range Interpretation Code Description Data Neva rce(s) Supporting Document(s) Albumin [Mass/volume] in Serum or Plasma by Bromocresol green (BCG) dye binding method 4.0 g/dL 3.5-5.2 [facility] Bilirubin.total [Mass/volume] in Serum or Plasma 0.2 mg/dL <1.2 [facility] Calcium [Mass/volume] in Serum or Plasma 8.6 mg/dL 8.8-10.2 L [facility] Chloride [Moles/volume] in Serum or Plasma 94 mmol/L 98-107 L [facility] Creatinine [Mass/volume] in Serum or Plasma 0.70 mg/dL 0.70-1.20 [facility] Glucose [Mass/volume] in Serum or Plasma 92 mg/dL 70-140 [facility] Alkaline phosphatase [Enzymatic activity/volume] in Serum or Plasma 77 U/L 40-129 [facility] Potassium [Moles/volume] in Serum or Plasma 3.9 mmol/L 3.4-5.1 [facility] Protein [Mass/volume] in Serum or Plasma 6.3 g/dL 6.4-8.3 L [facility] Sodium [Moles/volume] in Serum or Plasma 127 mmol/L 136-145 L [facility] Aspartate aminotransferase [Enzymatic activity/volume] in Serum or Plasma 12 U/L <40 [facility] Urea nitrogen [Mass/volume] in Serum or Plasma 9 mg/dL 8-23 [facility] Osmolality of Serum or Plasma by calculation 262 mosm/kg 275-300 L [facility] Creatinine/Urea nitrogen [Mass Ratio] in Serum or Plasma 13 [facility] Bicarbonate [Moles/volume] in Serum 27 mmol/L 22-29 [facility] Alanine aminotransferase [Enzymatic activity/volume] in Seru m or Plasma 7 U/L <41 [facility] Anion gap 3 in Serum or Plasma 6 mmol/L 8-15 L [facility] Albumin/Globulin [Mass Ratio] in Serum or Plasma 1.7 [facility] Glomerular filtration rate/1.73 sq M pre dicted among non-blacks [Volume Rate/Area] in Serum or Plasma by Creatinine-based formula (MDRD) >6 0 [facility] Glomerular filtration rate/1.73 sq M pre dicted among blacks [Volume Rate/Area] in Serum or Plasma by Creatinine-based formula (MDRD) >60 [facility] ID Date Data Source [id number] 11/17/2019 01:50:[address] [facility] Name Value Range Interpretation Code Description Data Neva rce(s) Supporting Document(s) Thyrotropin [Units/volume] in Serum or Plasma 5.150 u[IU]/mL 0.270-4. 200 [facility] ID Date Data Source [id number] 10/28/2019 09:20:[address] [facility] Name Value Range Interpretation Code Description Data Neva rce(s) Supporting Document(s) Progress Note [facility] TKQMQv5hDlHEQxIp75/GCHopGLJdm0RrLLjrIFr2FOuqMMVuK9MbQZN6eO2qWCK2CDpWIyVyQoExFOSg lbm [file] [id number]/[id number]+Hernán/+/zVpSaUJShfYtjQmvq6HusMrsXIj5DFthdtukFnPwGcMmvngCmly5 [file] [id number]== ID Date Data Source [id number] 10/27/2019 12:15:[address] [facility] Name Value Range Interpretation Code Description Data [facility](s) Supporting Document(s) Leukocytes [#/volume] in Blood by Automated count 5.8 10*3/uL 4-10 [facility] Erythrocytes [#/volume] in Blood by Automated count 3.36 10*6/uL 4.6- 6.1 L [facility] Hemoglobin [Mass/volume] in Blood 10.8 g/dL 13.5-18 L [facility] Hematocrit [Volume Fraction] of Blood by Automated count 31.1 % 4 1-53 L [facility] Erythrocyte mean corpuscular volume [Entitic volume] by Auto mated count 92.5 fL 80-96 [facility] Erythrocyte mean corpuscular hemoglobin [Entitic mass] by Automated count 32.1 pg 27-33 [facility] Erythrocyte mean corpuscular hemoglobin concentration [Mass/volume] by Automated count 34.7 g/dL 32.0-36.0 [facility] Erythrocyte distribution width [Ratio] by Automated count 14.2 % 11.5-14.5 [facility] Platelets [#/volume] in Blood by Automated count 273 10*3/uL 150-400 [facility] Differential cell count method - Blood [facility] Neutrophils/100 leukocytes in Blood by Automated count 72 % [facility] Lymphocytes/100 leukocytes in Blood by Automated count 12 % [facility] Monocytes/100 leukocytes in Blood by Automated count 11 % [facility] Eosinophils/100 leukocytes in Blood by Automated count 4 % [facility] Basophils/100 leukocytes in Blood by Automated count 1 % [facility] Neutrophils [#/volume] in Blood by Automated count 4.17 10*3/uL 1.8-7 .0 [facility] Lymphocytes [#/volume] in Blood by Automated count 0.69 10*3/uL 1.2-4 .0 L [facility] Monocytes [#/volume] in Blood by Automated count 0.62 10*3/uL 0-0.8 [facility] Eosinophils [#/volume] in Blood by Automated count 0.21 10*3/uL 0-0.5 [facility] Basophils [#/volume] in Blood by Automated count 0.07 10*3/uL 0-0.2 [facility] Nucleated erythrocytes/100 leukocytes [Ratio] in Blood by Automated count 0 /100{WBCs} 0-0 [facility] ID Date Data Source [id number] 10/27/2019 12:42:[address] [facility] Name Value Range Interpretation Code Description Data Neva rce(s) Supporting Document(s) Albumin [Mass/volume] in Serum or Plasma by Bromocresol green (BCG) dye binding method 3.9 g/dL 3.5-5.2 [facility] al Bilirubin.total [Mass/volume] in Serum or Plasma 0.2 mg/dL <1.2 [facility] Calcium [Mass/volume] in Serum or Plasma 8.8 mg/dL 8.8-10.2 [facility] Chloride [Moles/volume] in Serum or Plasma 93 mmol/L 98-107 L [facility] Creatinine [Mass/volume] in Serum or Plasma 0.71 mg/dL 0.70-1.20 [facility] Glucose [Mass/volume] in Serum or Plasma 123 mg/dL 70-140 [facility] Alkaline phosphatase [Enzymatic activity/volume] in Serum or Plasma 87 U/L 40-129 [facility] Potassium [Moles/volume] in Serum or Plasma 3.6 mmol/L 3.4-5.1 [facility] Protein [Mass/volume] in Serum or Plasma 6.3 g/dL 6.4-8.3 L [facility] Sodium [Moles/volume] in Serum or Plasma 128 mmol/L 136-145 L [facility] Aspartate aminotransferase [Enzymatic activity/volume] in Serum or Plasma 13 U/L <40 [facility] Urea nitrogen [Mass/volume] in Serum or Plasma 8 mg/dL 8-23 [facility] Osmolality of Serum or Plasma by calculation 266 mosm/kg 275-300 L [facility] Creatinine/Urea nitrogen [Mass Ratio] in Serum or Plasma 11 [facility] Bicarbonate [Moles/volume] in Serum 26 mmol/L 22-29 [facility] Alanine aminotransferase [Enzymatic activity/volume] in Seru m or Plasma 10 U/L <41 [facility] Anion gap 3 in Serum or Plasma 9 mmol/L 8-15 [facility] Albumin/Globulin [Mass Ratio] in Serum or Plasma 1.6 [facility] Glomerular filtration rate/1.73 sq M pre dicted among non-blacks [Volume Rate/Area] in Serum or Plasma by Creatinine-based formula (MDRD) >6 0 [facility] Glomerular filtration rate/1.73 sq M pre dicted among blacks [Volume Rate/Area] in Serum or Plasma by Creatinine-based formula (MDRD) >60 [facility] ID Date Data Source [id number] 10/27/2019 12:42:[address] [facility] Name Value Range Interpretation Code Description Data Neva rce(s) Supporting Document(s) Thyrotropin [Units/volume] in Serum or Plasma 3.190 u[IU]/mL 0.270-4. 200 [facility] ID Date Data Source [id number] 10/21/2019 10:35:[address] [facility] Name Value Range Interpretation Code Description Data Neva rce(s) Supporting Document(s) Progress Note [facility] ZIVFJt8kOhBMJnTo99/ETRvoECJqh2WdDOfnJAy7IKkcQVNbQ1ZoABW6fC0xOFW2WLgETkZyEcHtCEXg lbm SfWspMAwVtJQWoPubXLfUaTXasDkczlDHwVD5QbOH1WTZfH72cVYYlZLUrY8YtABKwZxz+Kw3DTEVdlU JeQY5OVuaN3Q8ts9sLQp/rpo6FR8Exn4mbXfnZl5rrvVgTmyR2MJWjPeB2wYgFYjMVIwiLAi/6AjiAwK 3Ob6R30DmdLXTq3n50r8i/fdwDEGPqn/+wgedYlsWK f1e/tdLl6me29o7DD8tB8pLoXcRXKUOv4/ESMER/mvkn/6qYVIP425DY3Oef8czclaVRylUJjNAyVjw8Ui [file] wV6Yp6e1cxlzzprin0v0lbtJtdk6vPFkV01CfAvsY/4Q/RXBWa35lJdNf1+pm2lqxTZ6FSWqqc822+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 [file] ICAgICAgICAgICAgICAgICAgICAgICAgICAgICAgICAgICAgICAgICAgICAgICAgICAgICAgICAgICAg ICAgICAgICAgICAgICAgICAgICAgICAgICAgDQogICAgICAgICAgICAgICAgICAgICAgICAgICAgICAg ICAgICAgICAgICAgICAgICAgICAgICAgICAgICAgIC AgICAgICAgICAgICAgICAgICAgICAgICAgICAgICAgICAgICAgDQogICAgICAgICAgICAgICAgICAgIC AgICAgICAgICAgICAgICAgICAgICAgICAgICAgICAgICAgICAgICAgICAgICAgICAgICAgICAgICAgIC AgICAgICAgICAgICAgICAgICAgDQogICAgICAgICAg ICAgICAgICAgICAgICAgICAgICAgICAgICAgICAgICAgICAgICAgICAgICAgICAgICAgICAgICAgICAg ICAgICAgICAgICAgICAgICAgICAgICAgICAgICAgDQogICAgICAgICAgICAgICAgICAgICAgICAgICAg ICAgICAgICAgICAgICAgICAgICAgICAgICAgICAgIC AgICAgICAgICAgICAgICAgICAgICAgICAgICAgICAgICAgICAgICAgDQogICAgICAgICAgICAgICAgIC AgICAgICAgICAgICAgICAgICAgICAgICAgICAgICAgICAgICAgICAgICAgICAgICAgICAgICAgICAgIC AgICAgICAgICAgICAgICAgICAgICAgDQogICAgICAg ICAgICAgICAgICAgICAgICAgICAgICAgICAgICAgICAgICAgICAgICAgICAgICAgICAgICAgICAgICAg ICAgICAgICAgICAgICAgICAgICAgICAgICAgICAgICAgDQogICAgICAgICAgICAgICAgICAgICAgICAg ICAgICAgICAgICAgICAgICAgICAgICAgICAgICAgIC AgICAgICAgICAgICAgICAgICAgICAgICAgICAgICAgICAgICAgICAgICAgDQogICAgICAgICAgICAgIC AgICAgICAgICAgICAgICAgICAgICAgICAgICAgICAgICAgICAgICAgICAgICAgICAgICAgICAgICAgIC AgICAgICAgICAgICAgICAgICAgICAgICAgDQogICAg ICAgICAgICAgICAgICAgICAgICAgICAgICAgICAgICAgICAgICAgICAgICAgICAgICAgICAgICAgICAg MXJrQHPwZVLgNIRaXHMaGNTmZUHqULCiXOFyRATfVHPzBXRbQVz4K3dtGTTqGQTaFP9vSUl4Ob5+DQoN FyLeKTG2bqBwfI5TWO3mi0HiQYbdPPFkw4NcQEu9HD 6NJIWmYPrwJC8BSKjjbv0EJVUnQBXfsFYUp6bsRtCyDTV2GHJxKtnsWP5EEASnR8oyetWoVWGjOMHOSA uyVKCLKWHbLDZkMuTuFzAtNKQbWLSwBDGQDHT5LCYqVyDqJZVlOVQoOfUjMKTQTW0ETlXjX7EcdP79BF gNCj4+PKzaexRiYdlBOpQ2LJMxe5TdYMv2CD3VQOBg Baxby5NmOsdkFXMFWLxoNM8KBXA7UWJ0QRKcIw2VUKIoI805pfDvRZ5FNq2WYwTnPH1uxm3IXgrpNJSo IvwMZll3ZGgpSC8DqTOdMGiIzu3peaCyysDEu1NbxyRvxKCBGbBffBukMQBnUWjrIiT7THIJOXDcsLXi ZfDhDyMcONEjQpcnHQGGXPwEWiFrT8Mzi5KcFlI8IF DlMzLaHQdrGFVaSkS1LY19jMqsKJ7GUZStBUNiFO74ZYZ9BMUrDy2HAi1AAgNnWY5pfl5STsAlCY9pdc 8SFRcMBpDiZ5R6bKAtI8Arra99LC2ZbCM4gDJfBL3HqF0jKL7Tk0PsRHEhAdXpCQLpMIBqBWClKCStFy OdEB7TKGUnLjQlyHFiGRTdUVO0EWXbQoX5GoxxFT3W YCLaYHM0GL9UEH7PNuofS2XZWDliyXpuPySJBLE/XRWTJHMDNImyXYAbB28NT8CBIHrKXstsIGuSQycu Ur3oZVg+Wy5YGP0ny2KzTDfnITQiQT5aad4RXGpDMhRyR1X8cBTdW1W3FDgsJc3XBRNpGWVaNmHmRQUI AQwnTZ1IMQ1ascS1LX5BcZEqOQIpKBKclOKuAEo7E5 2ygBAcBQxtWH0SXVT+Delbert+Bo6TIHJaAVJgCCVpJuMtPOPYZnCaC7YkL8FDe0DmW2GoDR85uJqwjdIaNI nbVQ8VBV4yLBXiRIYALM9YrVLhhZ2befFbKpQyLETNFcQuD36bhSUyOBMfMID4NTHlUp0IGIBjB9Izdq SxqNahdyJkZZMlQUSHHZ1PTFxydtAqvMHjeRgqLS28 jEgjAH0ADs2QGnMnVE3llz1HlOCpCs7TPEO5GE7CMVUcMDHrGHCzHZW9RTUiPqRhDNicWHQjRGGmOVB8 BEGhJOAjIX8NXgAhRLYkZWJ9RPIuDUUaEMMgud8ZXNJkQBJ8GXN1JwDgHIWdRGUkPFyuRVWsKRNsKHQ9 WAYhTHXwYR9CHlKhYXJhLNO5NKOgRRVlIBAdic9UDQ LvVPV3KVZ8OAQsZYJaJRBzUUeoFDHbCUKiAiD5DWKgGTNtBA7HYqYpDYMxNBaxGnRxYOBwDZZowt3RDD FgMYMxIOE1WOGcJYQkAEEdLYjnXIKsLWWvDcJaCWMlVKXiHZ1CNzKuEQWwTPD2ZtjzOYAsZNXesa6ZWN WfARKmFXGoJsYqXPFyNIWnBVikHKTiLRP8FvS3MCVj NYVwIH5EWmJaNWPiCAi9FiAhTWFaWZKeeu3KDRYwBUPsIwgwYCTuEGFwJNXtHPfdADBuOWUzVxj5TXYn WOHwYX0WDkKcYGXaInB1TLLgBYUwXZOtxv4PJRKpEUUwNHt5NFNlPTCmMLOsHYuoDSErMXY0SVL5RPRj IFCqLW5BWoVtAIVrMwF1FiHwCCYuAPJfvu2GNSVuOG MlDdY2QAQxVGBuLLPjVXboICRcRDT4BLJiMAEgKKVaSJ5DKxZhLREpMxbqTottEZKaVFYtfx9JONRlKH IeQNYhXTJuCPVsXLMuWSbnJNDbLQO1ZJgvVAIjPAIePS5LHhCdHPYhFus4DrHiXPKkQRNzje4SUVRvNF MmHJc6TKJoEXSrTSJeVBrlWTErXODuXlcvZSEnGLPg BA0WMqYhZLTkDSR3KUCaXYLtFWUnbj6EOFUbBPR3FHozFPMxGAQfONUqOCnaPTGrMULkZPk9TMNeVQEt ZE1IBrEuYZQvGLOkKtAfMUJnOBCjxb1SANQaGKE5DvN5EMFpJTMgCBMlZNztGHZnDHVeJgYgWZXwCCSd MU6QMnCbGTWgBJF6NvExVVBfCIXwpj8GXVHzSBD7Gm m4IeTuHPCjPEYkFSbjBMLsSGI0VNMgWFNcOUCaFW8TAqXiFNQtXMQ7AJXvGBHrADEwes0YJZGlPRZ3WL xbIQMrMHThZLZoSZc4maWczZAeODk1CL4JH8DybjYlSZJQFj2Hx159OFV0NAHjYo0PR8umOy6fUZWgPX PNHm7MBZc1URZzIJL5BLJsXjV8VeYrPPvqINIcLEld SEJ9XWWuWTo+HUbkM4EfZYGsTiF8BepqDvC0XpR6ILSeLHB7AUpaSPY2Ip8wDEODSy5+DQpzdGFydHhy DSWSRiR8ZSj6TEtgWBLRNt2Q ID Date Data Source [id number] 10/20/2019 03:02:30 PM EST [facility] Name Value Range Interpretation Code Description Data Neva rce(s) Supporting Document(s) ED Provider Note [facility] WUNFGs0aFoRIYbCb10/ENVuoQLIdb1OiDHzlTJs5IVfjIFZzP3LqFNM1lZ3lWFT5YTbPBcYlIeZjTNYi lbm [file] KEwVaCi6WMlWoY7bQnD9W5RA+j5Ar4bOJlthpGecdyIyXiO1aBq/+Hernán+dDrpOdN0w+Htbr/+tn52U9sk wt5FrE1abbuP3JEDZgw7Z7/AMtK9oo0dXRk5uT1IyfQ0edPZpz24UlW8Q94F4daV1W9VmgSKysBsuzYi 5dCY4zXyXZVUHd22FV/DqQhI7sPOap1RHer8fzQ/F1 zn6iiwrxiDB1EcNQxTu/sHLjRkGJXiuE47X8/UnmxcQ7zAEe2fAw7lileD4lyl+fxik+QaTQZqvoVDa9 Jq2oaNH60jqkfsEziKfhC2yXkbCkSAHg52N25Vn/5DWVQfeMvC8leFBFSDrrrUMYEwcjKgdksTpq6c/e FLC22g6S2ajm59rOlkL/mO1HuKHHRMC2fTGNnGw0Fu 7ai55Nupxa30jtX1mm3Lw4T7Cwvr+Vs4HoEIb2+rI9dZ1CagGNh9pEFcxgnF366n8WbydnPq/6TN8mPs /iQZiJWv/gjXv2h50+lqbzIOss5eKcauswSEizk/zvcXvwaffgkrRN86M3BLahRwHe1OhfawCsucBKnN ZA2y0iUCSElFxSQY8IRQ6sJpJYP+L3Ee+avnyYEtdW QsnA/ZFv63ZFTk3a71V3126lkczbLAgkZxeazjJUylvNyKL8J6ao9MxX0wNuOubF/+7S001c6/yef+4q JfnG19jvi14NGCVv5qo/vuYd1b/Occitan/irvvDW87PVGSQ/olsrkgbnhNUghKYf5KQo9Ej0y+Ylj4gWFWnM VZ/r+7CsuAfBOzZWCawIBM2ZhmyUsDoFu4dqcffGys goKJFfZ4S1sl0a90Yn18h0Qjc49ITpLvDUD9clOjiD1OQR6ay7RwQRafTqPxVD3myy2XGHS8WT1PEFWx ZR5SxRJgB3RpD2CAMyTcBYHiUGCcIB82SYMoACUGBKscETLoC6Gsu918twDylfInQMCiLk5AJAAlHG8J GNMdIZGkwYWyUCAiVQFzYeT5TBKsSViwEDXjS1Eueq RrynZaLDBoFGVoPv5TSZAdIP0Ruo71jZV4FVEsXcUoCVLbznOqYMQehoD2XV4MEeUnJVF9eSBcLxzLCE 0MPRPzoBEmBS2BKQIkvQQlRK1+DQogID4+ZNhcatAjXjfIZjN7JAUzm3GaAWamSWx4D9KqyTXnyxGyLu pdpVEZIACnYCHdW1yvijg5bMIfBYB7Qt9UVaGwo7Cr VRLxRKqDis5lXMXkreL3s3J3Q/fvBYs5M/oDiXWTG7h0lsdo2B1TfM4WEWkUIlMrzrYvu2NFpUzcD/Ortez bHJK1DKwwS/8dW94U5aCh0bSuV/5RMlcvIRarIx5+SfuMkx3SV96D0FBVladfBugLke8t6g3drM05htj BT/80NkejXpHn/oJmy595gNrk03go1p+202f7WmVY0 6GF63M7wGf4k9z56iO/voruhdo3zyThD5UCWuqF96A9eqhs9qW38qHFESVlzsUo2QdF8CwCuwE0E0+8e 39dPr7uBklWUt76+Vences/j44u3+XmCdjVPnPn7/cmM6ZxppXb6nB91n4xyymmC0CPeHU1H+VbDTG/W3Co OuMxxY6CcGGdtUkDtqABAmi9BFsaizbzTS4EdnV5VG E8Wiv4cJOuhWie85PFacMdXu3bgtzkQuQpbXMb4tx0hXeGQr0Qne+Jameel/dZL5nU4Rkvf7tjUrz1xvVq4 [file] [employer] 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 Name Value Range Interpretation Code Description Data Neva e(s) Supporting Document(s) Leukocytes [#/volume] in Blood by Automated count 9.4 10*3/uL 4-10 [facility] Erythrocytes [#/volume] in Blood by Automated count 3.24 10*6/uL 4.6- 6.1 L [facility] Hemoglobin [Mass/volume] in Blood 10.4 g/dL 13.5-18 L [facility] Hematocrit [Volume Fraction] of Blood by Automated count 30.3 % 4 1-53 L [facility] Erythrocyte mean corpuscular volume [Entitic volume] by Auto mated count 93.8 fL 80-96 [facility] Erythrocyte mean corpuscular hemoglobin [Entitic mass] by Automated count 32.2 pg 27-33 [facility] Erythrocyte mean corpuscular hemoglobin concentration [Mass/volume] by Automated count 34.3 g/dL 32.0-[facility] width [Ratio] by Automated count 15.1 % 11.5-14.5 H [facility] Platelets [#/volume] in Blood by Automated count 328 10*3/uL 150-400 [facility] Differential cell count method - Blood [facility] Neutrophils/100 leukocytes in Blood by Automated count 80 % [facility] Lymphocytes/100 leukocytes in Blood by Automated count 7 % [facility] Monocytes/100 leukocytes in Blood by Automated count 8 % [facility] Eosinophils/100 leukocytes in Blood by Automated count 4 % [facility] Basophils/100 leukocytes in Blood by Automated count 1 % [facility] Neutrophils [#/volume] in Blood by Automated count 7.48 10*3/uL 1.8-7 .0 H [facility] Lymphocytes [#/volume] in Blood by Automated count 0.65 10*3/uL 1.2-4 .0 L [facility] Monocytes [#/volume] in Blood by Automated count 0.76 10*3/uL 0-0.8 [facility] Eosinophils [#/volume] in Blood by Automated count 0.40 10*3/uL 0-0.5 [facility] Basophils [#/volume] in Blood by Automated count 0.07 10*3/uL 0-0.2 [facility] Nucleated erythrocytes/100 leukocytes [Ratio] in Blood by Automated count 0 /100{WBCs} 0-0 [facility] ID Date Data Source [id number] 10/20/2019 01:11:[address] [facility] Name Value Range Interpretation Code Description Data Neva rce(s) Supporting Document(s) Albumin [Mass/volume] in Serum or Plasma by Bromocresol green (BCG) dye binding method 3.9 g/dL 3.5-5.2 [facility] Bil[facility] [Mass/volume] in Serum or Plasma 0.3 mg/dL <1.2 [facility] Calcium [Mass/volume] in Serum or Plasma 8.4 mg/dL 8.8-10.2 L [facility] Chloride [Moles/volume] in Serum or Plasma 98 mmol/L 98-107 [facility] Creatinine [Mass/volume] in Serum or Plasma 0.71 mg/dL 0.70-1.20 [facility] Glucose [Mass/volume] in Serum or Plasma 99 mg/dL 70-140 [facility] Alkaline phosphatase [Enzymatic activity/volume] in Serum or Plasma 98 U/L 40-129 [facility] Potassium [Moles/volume] in Serum or Plasma 4.0 mmol/L 3.4-5.1 [facility] Protein [Mass/volume] in Serum or Plasma 6.3 g/dL 6.4-8.3 L [facility] Sodium [Moles/volume] in Serum or Plasma 131 mmol/L 136-145 L [facility] Aspartate aminotransferase [Enzymatic activity/volume] in Serum or Plasma 14 U/L <40 [facility] Urea nitrogen [Mass/volume] in Serum or Plasma 8 mg/dL 8-23 [facility] Osmolality of Serum or Plasma by calculation 274 mosm/kg 275-300 L [facility] Creatinine/Urea nitrogen [Mass Ratio] in Serum or Plasma 11 [facility] Bicarbonate [Moles/volume] in Serum 24 mmol/L 22-29 [facility] Alanine aminotransferase [Enzymatic activity/volume] in Seru m or Plasma 10 U/L <41 [facility] Anion gap 3 in Serum or Plasma 10 mmol/L 8-15 [facility] Albumin/Globulin [Mass Ratio] in Serum or Plasma 1.6 [facility] Glomerular filtration rate/1.73 sq M pre dicted among non-blacks [Volume Rate/Area] in Serum or Plasma by Creatinine-based formula (MDRD) >6 0 [facility] Glomerular filtration rate/1.73 sq M pre dicted among blacks [Volume Rate/Area] in Serum or Plasma by Creatinine-based formula (MDRD) >60 [facility] ID Date Data Source [id number] 10/20/2019 01:11:[address] [facility] Name Value Range Interpretation Code Description Data Neva rce(s) Supporting Document(s) Thyrotropin [Units/volume] in Serum or Plasma 4.600 u[IU]/mL 0.270-4. 200 [facility] ID Date Data Source [id number] 10/19/2019 07:01:00 AM [facility] ([facility]) Name Value Range Interpretation Code Description Data Neva rce(s) Supporting Document(s) Reported Physicians See Note Reported [facility]ici [place] ([facility]) Note: Reported Physicians:Ordering: EVELYN STONE AAttending: VINCENT ISSAConsulting: Mariama PHAM To: Morenita LorraineCopy To: VINCENT ISSA ID Date Data Source [id number] 10/19/2019 07:57:00 AM [facility] Name Value Range Interpretation Code Description Data Neva rce(s) Supporting Document(s) BASIC METABOLIC PANEL [facility] BASIC METABOLIC PANEL Sodium [Moles/volume] in Serum or Plasma 134 mEq/L 134 - 153 [facility] Potassium [Moles/volume] in Serum or Plasma 3.9 mEq/L 3.6 - 5.0 [facility] Chloride [Moles/volume] in Serum or Plasma 97 mEq/L 98 - 107 [facility] Carbon dioxide, total [Moles/volume] in Serum or Plasma 27 MEQ/L 22 - 30 [facility] Glucose [Mass/volume] in Serum or Plasma 114 MG/DL 65 - 110 [facility] BUN 9 MG[facility]DL 7 - [facility] Creat[facility] [Mass/volume] in Serum or Plasma 0.8 MG/DL 0.7 - 1.5 [facility] BUN/CREAT 11 8 - 27 [facility] Calcium [Mass/volume] in Serum or Plasma 9.0 MG/DL 8.4 - 10.2 [facility] Anion gap 3 in Serum or Plasma 10.0 mmol/L 8.0 - 16.0 [facility] 84 [facility] AMER GFR >60 mL/min [facility] NON-AA GFR >60 mL/min [facility] Male GFR Inter prentation 20-49 [...] >32 mL/min Normal ID Date Data Source [id number] 10/19/2019 07:26:00 AM EST [facility] Name Value Range Interpretation Code Description Data Neva rce(s) Supporting Document(s) CBC W/AUTOMATED DIFF [facility] COMPLETE BLOOD COUNT Leukocytes [#/volume] in Blood by Automated count 7.7 10^3/uL 4.2 - 1 1.0 [facility] Erythrocytes [#/volume] in Blood by Automated count 3.27 10^6/uL 4. 50 - 6.30 [facility] Hemoglobin [Mass/volume] in Blood 10.3 g/dL 14.0 - 16.0 [facility] Hematocrit [Volume Fraction] of Blood by Automated count 30.4 % 4 1.0 - 51.0 [facility] Erythrocyte mean corpuscular volume [Entitic volume] by Auto mated count 93.0 fL 80.0 - 94.0 [facility] Erythrocyte mean corpuscular hemoglobin [Entitic mass] by Automated count 31.5 pg 27.0 - 34.0 [facility] Erythrocyte mean corpuscular hemoglobin concentration [Mass/volume] by Automated count 33.9 g/dL 31.0 - 36.0 [facility] Erythrocyte distribution width [Ratio] by Automated count 14.2 % 11.5 - 14.8 [facility] Platelets [#/volume] in Blood by Automated count 311 10^3/uL 150 - 45 0 [facility] Platelet mean volume [Entitic volume] in Blood by Automated count 8.3 fL 7.4 - 10.4 [facility] Neutrophils/100 leukocytes in Blood by Automated count 77.7 % 37. 0 - 80.0 [facility] Lymphocytes/100 leukocytes in Blood by Manual count 7.2 % 25.0 - 40.0 L [facility] Monocytes/100 leukocytes in Blood by Automated count 9.8 % 3.0 - 8.0 H [facility] Eosinophils/100 leukocytes in Blood by Automated count 3.9 % 0.0 - 7.0 [facility] Basophils/100 leukocytes in Blood by Automated count 0.6 % 0.0 - 2.0 [facility] %IG 0.8 % 0.0 - 0.0 [facility] %NRBC 0.0 % 0.0 - 0.0 [facility] Neutrophils [#/volume] in Blood by Automated count 6.01 10^3/uL 2.00 - 6.90 [facility] Lymphocytes [#/volume] in Blood by Automated count 0.56 10^3/uL 0.60 - 3.40 [facility] Monocytes [#/volume] in Blood by Automated count 0.76 10^3/uL 0.00 - 0.90 [facility] Eosinophils [#/volume] in Blood by Automated count 0.30 10^3/uL 0.00 - 0.70 [facility] Basophils [#/volume] in Blood by Automated count 0.05 10^3/uL 0.00 - 0.20 [facility] #IG 0.06 10^3/uL 0.00 - 0.10 [facility] #NRBC 0.00 10^3/uL 0.00 - 0.00 [facility] MANUAL DIFF NOT INDICATED [facility] RBC MORPH NOT INDICATED [facility] ID Date Data Source [id number] 10/19/2019 07:01:00 AM EST [place] ([facility]) Name Value Range Interpretation Code Description Data Neva rce(s) Supporting Document(s) AFR AMER GFR >60 mL/min AFR AMER GFR [place] ([facility]) Note: Responsible Observer: (CM) Egg donor age 84 yrs AGE [place] ([facility]) Note: Responsible Observer: (CM) Anion gap in Body fluid 10.0 mmol/L ANION GAP [place] ([facility]) Note: Responsible Observer: (CM) BUN 9 MG/DL BUN [place] ([facility]) Note: Responsible Observer: (CM) Basic metabolic panel - Blood See Note BASIC METABOLIC PANEL [place] ([facility]) Note: BASIC METABOLIC PANELResponsib le Observer: (CM) BUN/CREAT 11 BUN/CREAT [place] ([facility]) Note: Responsible Observer: (CM) Calcium [Moles/volume] in Urine collected for unspecified durati on 9.0 MG/DL CALCIUM [place] ([facility]) Note: Responsible Observer: (CM) Chloride [Moles/volume] in Serum, Plasma or Blood 97 mEq/L Below low normal CHLORIDE [place] ([facility]) Note: Responsible Observer: (CM) CO2 27 MEQ/L CO2 [place] ([facility]) Note: Responsible Observer: (CM) Creatinine [Moles/volume] in Vitreous fluid 0.8 MG/DL CREATININE [place] ([facility]) Note: Responsible Observer: (CM) Glucose [Mass/volume] in Urine collected for unspecified duratio n 114 MG/DL Above high normal GLUCOSE [place] ([facility]) Note: Responsible Observer: (CM) NON-AA GFR >60 mL/min NON-AA GFR [place] ([facility]) Note: Male GFR Interprentation 20-49 yrs >60 [...] [Mass/volume] in Blood 3.9 mEq/L POT ASSIUM [place] ([facility]) Note: Responsible Observer: (CM) Sodium [Moles/volume] in Serum, Plasma or Blood 134 mEq/L SODIUM [place] ([facility]) Note: Responsible Observer: (CM) ID Date Data Source [id number] 10/19/2019 07:01:00 AM EST [place] ([facility]) Name Value Range Interpretation Code Description Data Neva rce(s) Supporting Document(s) Reported Physicians See Note Reported Physici ans [place] ([facility]) Note: Reported Physicians:Ordering: EVELYN STONE AAttending: VINCENT ISSAConsulting: Mariama PHAM To: Evelyn XavierCopladarius To: VINCENT ISSA ID Date Data Source [id number] 10/19/2019 07:01:00 AM EST [place] ([facility]) Name Value Range Interpretation Code Description Data Neva rce(s) Supporting Document(s) #BASO 0.05 10\\^3/uL #BASO [place] ([facility]) Note: Responsible Observer: (CM) #EOS 0.30 10\\^3/uL #EOS [place] ([facility]) Note: Responsible Observer: (CM) #LYMPH 0.56 10\\^3/uL Below low normal #LYMPH [place] ([facility]) Note: Responsible Observer: (CM) #IG 0.06 10\\^3/uL #IG [place] ([facility]) Note: Responsible Observer: (CM) #MONO 0.76 10\\^3/uL #MONO [place] ([facility]) Note: Responsible Observer: (CM) #NEUT 6.01 10\\^3/uL #NEUT [place] ([facility]) Note: Responsible Observer: (CM) #NRBC 0.00 10\\^3/uL #NRBC [place] ([facility]) Note: Responsible Observer: (CM) %IG 0.8 % Above high normal %IG [place] ([facility]) Note: Responsible Observer: (CM) %NRBC 0.0 % %NRBC [place] ([facility]) Note: Responsible Observer: (CM) BASO 0.6 % BASO [place] ([facility]) Note: Responsible Observer: (CM) CBC W/AUTOMATED DIFF See Note CBC W/AUTOMATED DIFF [place] ([facility]) Note: COMPLETE BLOOD COUNTResponsibl e Observer: (CM) EOS 3.9 % EOS [place] ([facility]) Note: Responsible Observer: (CM) Hematocrit [Pure volume fraction] of Blood by Automated count 30 .4 % Below low normal HEMATOCRIT [place] ([facility]) Note: Responsible Observer: (CM) Hemoglobin [Mass/volume] in Mixed venous blood by Oximetry 10.3 g/dL Below low normal HEMOGLOBIN [place] ([facility]) Note: Responsible Observer: (CM) LYMPH 7.2 % Below low normal LYMPH [place] ([facility]) Note: Responsible Observer: (CM) MANUAL DIFF NOT INDICATED MANUAL DIFF [place] ([facility]) Note: Responsible Observer: (CM) MCH 31.5 pg MCH [place] ([facility]) Note: Responsible Observer: (CM) MCV 93.0 fL MCV [place] ([facility]) Note: Responsible Observer: (CM) MCHC 33.9 g/dL MCHC [place] ([facility]) Note: Responsible Observer: (CM) MONO 9.8 % Above high normal MONO [place] ([facility]) Note: Responsible Observer: (CM) MPV 8.3 fL MPV [place] ([facility]) Note: Responsible Observer: (CM) Platelets [#/area] in Blood by Microscopy high power field 311 10\\^ 3/uL PLATELETS [place] ([facility]) Note: Responsible Observer: (CM) NEUT 77.7 % NEUT [place] ([facility]) Note: Responsible Observer: (CM) RBC 3.27 10\\^6/uL Below low normal RBC [place] ([facility]) Note: Responsible Observer: (CM) RBC MORPH NOT INDICATED RBC MORPH [place] ([facility]) Note: Responsible Observer: (CM) RDW 14.2 % RDW [place] ([facility]) Note: Responsible Observer: (CM) WBC 7.7 10\\^3/uL WBC [place] ([facility]) Note: Responsible Observer: (CM) ID Date Data Source [id number] 10/18/2019 10:15:00 AM EST [place] ([facility]) Name Value Range Interpretation Code Description Data Neva rce(s) Supporting Document(s) Reported Physicians See Note Reported Physici ans [place] ([facility]) Note: Reported Physicians:Ordering: DK HANNON MAttending: VINCENT ISSAConsulting: SEBASTIÁN PHAMYNCopladarius To: Alanis CABRERA To: VINCENT ISSA ID Date Data Source [id number] 10/18/2019 10:15:00 AM EST [place] ([facility]) Name Value Range Interpretation Code Description Data Neva rce(s) Supporting Document(s) CBC NO DIFF See Note CBC NO DIFF [place] ([facility]) Note: COMPLETE BLOOD COUNTResponsibl e Observer: (BLD) Hemoglobin [Mass/volume] in Mixed venous blood by Oximetry 11.0 g/dL Below low normal HEMOGLOBIN [place] ([facility]) Note: Responsible Observer: (BLD) Hematocrit [Pure volume fraction] of Blood by Automated count 31 .7 % Below low normal HEMATOCRIT [place] ([facility]) Note: Responsible Observer: (BLD) MCH 31.9 pg MCH [place] ([facility]) Note: Responsible Observer: (BLD) MCHC 34.7 g/dL MCHC [place] ([facility]) Note: Responsible Observer: (BLD) MCV 91.9 fL MCV [place] ([facility]) Note: Responsible Observer: (BLD) Platelets [#/area] in Blood by Microscopy high power field 321 10\\^ 3/uL PLATELETS [place] ([facility]) Note: Responsible Observer: (BLD) MPV 8.0 fL MPV [place] ([facility]) Note: Responsible Observer: (BLD) RBC 3.45 10\\^6/uL Below low normal RBC [place] ([facility]) Note: Responsible Observer: (BLD) RDW 14.2 % RDW [place] ([facility]) Note: Responsible Observer: (BLD) WBC 9.5 10\\^3/uL WBC [place] ([facility]) Note: Responsible Observer: (BLD) ID Date Data Source [id number] 10/18/2019 10:15:00 AM EST [place] ([facility]) Name Value Range Interpretation Code Description Data Neva rce(s) Supporting Document(s) Reported Physicians See Note Reported Physici ans [place] ([facility]) Note: Reported Physicians:Ordering: DK HANNON MAttending: VINCENT ISSAConsulting: Mariama PHAM To: Alanis CABRERA To: VINCENT ISSA ID Date Data Source [id number] 10/18/2019 10:15:00 AM EST [place] ([facility]) Name Value Range Interpretation Code Description Data Neva rce(s) Supporting Document(s) A/G RATIO 1.8 A/G RATIO [place] ([facility]) Note: Responsible Observer: () AFR AMER GFR >60 mL/min AFR AMER GFR [place] ([facility]) Note: Male GFR Interprentation 20- 49 yrs [...] dye binding method 4.2 G/DL ALBUMIN [place] ([facility]) Note: Responsible Observer: () Egg donor age 84 yrs AGE [place] ([facility]) Note: Responsible Observer: () ALKALINE PHOS 112 U/L ALKALINE PHOS [place] ([facility]) Note: Responsible Observer: () BUN 10 MG/DL BUN [place] ([facility]) Note: Responsible Observer: () Anion gap in Body fluid 13.0 mmol/L ANION GAP [place] ([facility]) Note: Responsible Observer: () BUN/CREAT 13 BUN/CREAT [place] ([facility]) Note: Responsible Observer: () Chloride [Moles/volume] in Serum, Plasma or Blood 95 mEq/L Below low normal CHLORIDE [place] ([facility]) Note: Responsible Observer: () Calcium [Moles/volume] in Urine collected for unspecified durati on 9.3 MG/DL CALCIUM [place] ([facility]) Note: Responsible Observer: () CO2 24 MEQ/L CO2 [place] ([facility]) Note: Responsible Observer: () COMPREHENSIVE METABOLIC PANEL See Note COMPRE HENSIVE METABOLIC PANEL [place] ([facility]) Note: COMPREHENSIVE METABOLIC PANELR esponsible Observer: () Creatinine [Moles/volume] in Vitreous fluid 0.8 MG/DL CREATININE [place] ([facility]) Note: Responsible Observer: () Globulin [Mass/time] in 24 hour Urine 2.3 GM/DL Below low normal GLOBULIN [place] ([facility]) Note: Responsible Observer: () NON-AA GFR >60 mL/min NON-AA GFR [place] ([facility]) Note: Responsible Observer: () Glucose [Mass/volume] in Urine collected for unspecified duratio n 165 MG/DL Above high normal GLUCOSE [place] ([facility]) Note: Responsible Observer: DEE DEE) Potassium [Mass/volume] in Blood 4.0 mEq/L POT ASSIUM [place] ([facility]) Note: Responsible Observer: () SGOT/AST 14 U/L SGOT/AST [place] ([facility]) Note: Responsible Observer: () Sodium [Moles/volume] in Serum, Plasma or Blood 132 mEq/L Below low normal SODIUM [place] ([facility]) Note: Responsible Observer: () SGPT/ALT 11 U/L SGPT/ALT [place] ([facility]) Note: Responsible Observer: () TOTAL BILI <0.7 MG/DL TOTAL BILI [place] ([facility]) Note: Responsible Observer: DEE DEE) TOTAL PROTEIN 6.5 G/DL TOTAL PROTEIN [place] ([facility]) Note: Responsible Observer: () ID Date Data Source [id number] 10/18/2019 11:58:00 AM EST [facility] Name Value Range Interpretation Code Description Data Neva rce(s) Supporting Document(s) COMPREHENSIVE METABOLIC PANEL [facility] COMPREHENSIVE METABOLIC PANEL Sodium [Moles/volume] in Serum or Plasma 132 mEq/L 134 - 153 L [facility] Potassium [Moles/volume] in Serum or Plasma 4.0 mEq/L 3.6 - 5.0 [facility] Chloride [Moles/volume] in Serum or Plasma 95 mEq/L 98 - 107 L [facility] Carbon dioxide, total [Moles/volume] in Serum or Plasma 24 MEQ/L 22 - 30 [facility] Glucose [Mass/volume] in Serum or Plasma 165 MG/DL 65 - 110 H [facility] BUN 10 MG/DL 7 - [facility] Creatinine [Mass/volume] in Serum or Plasma 0.8 MG/DL 0.7 - 1.5 [facility] BUN/CREAT 13 8 - 27 [facility] al Protein [Mass/volume] in Serum or Plasma 6.5 G/DL 6.3 - 8.2 [facility] Albumin [Mass/volume] in Serum or Plasma 4.2 G/DL 3.9 - 5.0 [facility] Globulin [Mass/volume] in Serum by calculation 2.3 GM/DL 2.4 - 3.2 L [facility] A/G RATIO 1.8 0.8 - 2.0 [facility] Calcium [Mass/volume] in Serum or Plasma 9.3 MG/DL 8.4 - 10.2 [facility] Bilirubin.total [Mass/volume] in Serum or Plasma <0.7 MG/DL 0.2 - 1.3 [facility] Alkaline phosphatase [Enzymatic activity/volume] in Serum or Plasma 112 U/L 38 - 126 [facility] Aspartate aminotransferase [Enzymatic activity/volume] in Serum or Plasma 14 U/L 5 - 40 [facility] Alanine aminotransferase [Enzymatic activity/volume] in Seru m or Plasma 11 U/L 7 - 56 [facility] Anion gap 3 in Serum or Plasma 13.0 mmol/L 8.0 - 16.0 [facility] 84 [facility] NON-AA GFR >60 mL/min [facility] AFR AMER GFR >60 mL/min [facility] Male GFR In terprentation 20-49 [...] >32 mL/min Normal ID Date Data Source [id number] 10/18/2019 10:30:00 AM EST [facility] Name Value Range Interpretation Code Description Data Neva rce(s) Supporting Document(s) CBC NO DIFF [facility] COMPLETE BLOOD COUNT Leukocytes [#/volume] in Blood by Automated count 9.5 10^3/uL 4.2 - 1 1.0 [facility] Erythrocytes [#/volume] in Blood by Automated count 3.45 10^6/uL 4. 50 - 6.30 L [facility] Hemoglobin [Mass/volume] in Blood 11.0 g/dL 14.0 - 16.0 L [facility] Hematocrit [Volume Fraction] of Blood by Automated count 31.7 % 4 1.0 - 51.0 L [facility] Erythrocyte mean corpuscular volume [Entitic volume] by Auto mated count 91.9 fL 80.0 - 94.0 [facility] Erythrocyte mean corpuscular hemoglobin [Entitic mass] by Automated count 31.9 pg 27.0 - 34.0 [facility] Erythrocyte mean corpuscular hemoglobin concentration [Mass/volume] by Automated count 34.7 g/dL 31.0 - 36.0 [facility] Erythrocyte distribution width [Ratio] by Automated count 14.2 % 11.5 - 14.8 [facility] Platelets [#/volume] in Blood by Automated count 321 10^3/uL 150 - 45 0 [facility] Platelet mean volume [Entitic volume] in Blood by Automated count 8.0 fL 7.4 - 10.4 [facility] ID Date Data Source [id number] 10/17/2019 08:02:00 AM [facility] ([facility]) Name Value Range Interpretation Code Description Data Neva rce(s) Supporting Document(s) Reported Physicians See Note Reported Physici ans [place] ([facility]) Note: Reported Physicians:Ordering: EVELYN STONE AAttending: VINCENT ISSAConsulting: RODY PHAMCopladarius To: Evelyn XavierCopladarius To: VINCENT ISSA ID Date Data Source [id number] 10/17/2019 08:02:00 AM [facility] ([facility]) Name Value Range Interpretation Code Description Data Neva rce(s) Supporting Document(s) Egg donor age 84 yrs AGE [place] ([facility]) Note: Responsible Observer: () AFR AMER GFR >60 mL/min AFR AMER GFR [place] ([facility]) Note: Responsible Observer: () Basic metabolic panel - Blood See Note BASIC METABOLIC PANEL [place] ([facility]) Note: BASIC METABOLIC PANELResponsib le Observer: () Anion gap in Body fluid 12.0 mmol/L ANION GAP [place] ([facility]) Note: Responsible Observer: () BUN 8 MG/DL BUN [place] ([facility]) Note: Responsible Observer: () BUN/CREAT 11 BUN/CREAT [place] ([facility]) Note: Responsible Observer: () Calcium [Moles/volume] in Urine collected for unspecified durati on 9.3 MG/DL CALCIUM [place] ([facility]) Note: Responsible Observer: () CO2 28 MEQ/L CO2 [place] ([facility]) Note: Responsible Observer: DEE DEE) Creatinine [Moles/volume] in Vitreous fluid 0.7 MG/DL CREATININE [place] ([facility]) Note: Responsible Observer: () Chloride [Moles/volume] in Serum, Plasma or Blood 92 mEq/L Below low normal CHLORIDE [place] ([facility]) Note: Responsible Observer: () NON-AA GFR >60 mL/min NON-AA GFR [place] ([facility]) Note: Male GFR Interprentation 20-49 yrs >60 [...] n 128 MG/DL Above high normal GLUCOSE [place] ([facility]) Note: Responsible Observer: DEE DEE) Sodium [Moles/volume] in Serum, Plasma or Blood 132 mEq/L Below low normal SODIUM [place] ([facility]) Note: Responsible Observer: () Potassium [Mass/volume] in Blood 3.8 mEq/L POT ASSIUM [place] ([facility]) Note: Responsible Observer: () ID Date Data Source [id number] 10/17/2019 08:45:00 AM EST [facility] Name Value Range Interpretation Code Description Data Neva rce(s) Supporting Document(s) BASIC METABOLIC PANEL [facility] BASIC METABOLIC PANEL Sodium [Moles/volume] in Serum or Plasma 132 mEq/L 134 - 153 L [facility] Potassium [Moles/volume] in Serum or Plasma 3.8 mEq/L 3.6 - 5.0 [facility] Chloride [Moles/volume] in Serum or Plasma 92 mEq/L 98 - 107 L [facility] Carbon dioxide, total [Moles/volume] in Serum or Plasma 28 MEQ/L 22 - 30 [facility] Glucose [Mass/volume] in Serum or Plasma 128 MG/DL 65 - 110 H [facility] BUN 8 MG/DL 7 - 21 [facility] al Creatinine [Mass/volume] in Serum or Plasma 0.7 MG/DL 0.7 - 1.5 [facility] BUN/CREAT 11 8 - 27 [facility] Calcium [Mass/volume] in Serum or Plasma 9.3 MG/DL 8.4 - 10.2 [facility] Anion gap 3 in Serum or Plasma 12.0 mmol/L 8.0 - 16.0 [facility] 84 [facility] A[facility] AMER GFR >60 mL/min [facility] NON-AA GFR >60 mL/min [facility] Male GFR Inter prentation 20-49 [...] >32 mL/min Normal ID Date Data Source [id number] 10/14/2019 12:22:21 PM EST [facility] Name Value Range Interpretation Code Description Data Neva rce(s) Supporting Document(s) Discharge Summary [facility] [id number] [file] [id number] ID Date Data Source [id number] 10/14/2019 05:57:00 AM EST [place] ([facility]) Name Value Range Interpretation Code Description Data Neva rce(s) Supporting Document(s) Reported Physicians See Note Reported Physici ans [place] ([facility]) Note: Reported Physicians:Ordering: VINCENT VALDEZding: VINCENT ISSAConsulting: SEBASTIÁN PHAMYNCopladarius To: VINCENT ISSA ID Date Data Source [id number] 10/14/2019 05:57:00 AM EST [place] ([facility]) Name Value Range Interpretation Code Description Data Neva rce(s) Supporting Document(s) #BASO 0.04 10\\^3/uL #BASO [place] ([facility]) Note: Responsible Observer: (CM) #IG 0.05 10\\^3/uL #IG [place] ([facility]) Note: Responsible Observer: (CM) #LYMPH 0.46 10\\^3/uL Below low normal #LYMPH [place] [address] ([facility]) Note: Responsible Observer: (CM) #EOS 0.31 10\\^3/uL #EOS [place] ([facility]) Note: Responsible Observer: (CM) #NEUT 6.06 10\\^3/uL #NEUT [place] ([facility]) Note: Responsible Observer: (CM) #MONO 0.73 10\\^3/uL #MONO [place] ([facility]) Note: Responsible Observer: (CM) #NRBC 0.00 10\\^3/uL #NRBC [place] ([facility]) Note: Responsible Observer: (CM) %IG 0.7 % Above high normal %IG [place] ([facility]) Note: Responsible Observer: (CM) %NRBC 0.0 % %NRBC [place] ([facility]) Note: Responsible Observer: (CM) BASO 0.5 % BASO [place] ([facility]) Note: Responsible Observer: (CM) CBC W/AUTOMATED DIFF See Note CBC W/AUTOMATED DIFF [place] ([facility]) Note: COMPLETE BLOOD COUNTResponsibl e Observer: (CM) EOS 4.1 % EOS [place] ([facility]) Note: Responsible Observer: (CM) Hematocrit [Pure volume fraction] of Blood by Automated count 26 .3 % Below low normal HEMATOCRIT [place] ([facility]) Note: Responsible Observer: (CM) LYMPH 6.0 % Below low normal LYMPH [place] ([facility]) Note: Responsible Observer: (CM) Hemoglobin [Mass/volume] in Mixed venous blood by Oximetry 9.1 g /dL Below low normal HEMOGLOBIN [place] ([facility]) Note: Responsible Observer: (CM) MANUAL DIFF NOT INDICATED MANUAL DIFF [place] ([facility]) Note: Responsible Observer: (CM) MCHC 34.6 g/dL MCHC [place] ([facility]) Note: Responsible Observer: (CM) MCH 31.8 pg MCH [place] ([facility]) Note: Responsible Observer: (CM) MPV 8.4 fL MPV [place] ([facility]) Note: Responsible Observer: (CM) NEUT 79.2 % NEUT [place] ([facility]) Note: Responsible Observer: (CM) MCV 92.0 fL MCV [place] ([facility]) Note: Responsible Observer: (CM) MONO 9.5 % Above high normal MONO [place] ([facility]) Note: Responsible Observer: (CM) RBC 2.86 10\\^6/uL Below low normal RBC [place] ([facility]) Note: Responsible Observer: (CM) Platelets [#/area] in Blood by Microscopy high power field 268 10\\^ 3/uL PLATELETS [place] ([facility]) Note: Responsible Observer: (CM) RDW 14.6 % RDW [place] ([facility]) Note: Responsible Observer: (CM) RBC MORPH NOT INDICATED RBC MORPH [place] ([facility]) Note: Responsible Observer: (CM) WBC 7.7 10\\^3/uL WBC [place] ([facility]) Note: Responsible Observer: (CM) ID Date Data Source [id number] 10/14/2019 05:57:00 AM EST [place] ([facility]) Name Value Range Interpretation Code Description Data Neva rce(s) Supporting Document(s) Reported Physicians See Note Reported Physici ans [place] ([facility]) Note: Reported Physicians:Ordering: VINCENT VALDEZ BAttending: VINCENT ISSAConsulting: PABLITO PHAMHRYNCopladarius To: VINCENT ISSA ID Date Data Source [id number] 10/14/2019 05:57:00 AM EST [place] ([facility]) Name Value Range Interpretation Code Description Data Neva rce(s) Supporting Document(s) AFR AMER GFR >60 mL/min AFR AMER GFR [place] ([facility]) Note: Male GFR Interprentation 20- 49 yrs [...] (CM) A/G RATIO 1.8 A/G RATIO [place] ([facility]) Note: Responsible Observer: (CM) Albumin [Mass/volume] in Blood by Bromocresol purple ( BCP) dye binding method 3.6 G/DL Below low normal ALBUMIN [place] ([facility]) Note: Responsible Observer: (CM) Egg donor age 84 yrs AGE [place] ([facility]) Note: Responsible Observer: (CM) ALKALINE PHOS 98 U/L ALKALINE PHOS [place] ([facility]) Note: Responsible Observer: (CM) Anion gap in Body fluid 11.0 mmol/L ANION GAP [place] ([facility]) Note: Responsible Observer: (CM) BUN 5 MG/DL Below low normal BUN [place] ([facility]) Note: Responsible Observer: (CM) BUN/CREAT 7 Below low normal BUN/CREAT [place] ([facility]) Note: Responsible Observer: (CM) Calcium [Moles/volume] in Urine collected for unspecified durati on 8.8 MG/DL CALCIUM [place] ([facility]) Note: Responsible Observer: (CM) Chloride [Moles/volume] in Serum, Plasma or Blood 92 mEq/L Below low normal CHLORIDE [place] ([facility]) Note: Responsible Observer: (CM) COMPREHENSIVE METABOLIC PANEL See Note COMPRE HENSIVE METABOLIC PANEL [place] ([facility]) Note: COMPREHENSIVE METABOLIC PANELR esponsible Observer: (CM) Creatinine [Moles/volume] in Vitreous fluid 0.7 MG/DL CREATININE [place] ([facility]) Note: Responsible Observer: (CM) CO2 26 MEQ/L CO2 [place] ([facility]) Note: Responsible Observer: (CM) Globulin [Mass/time] in 24 hour Urine 2.0 GM/DL Below low normal GLOBULIN [place] ([facility]) Note: Responsible Observer: (CM) Glucose [Mass/volume] in Urine collected for unspecified duratio n 117 MG/DL Above high normal GLUCOSE [place] ([facility]) Note: Responsible Observer: (CM) Potassium [Mass/volume] in Blood 4.0 mEq/L POT ASSIUM [place] ([facility]) Note: Responsible Observer: (CM) NON-AA GFR >60 mL/min NON-AA GFR [place] ([facility]) Note: Responsible Observer: (CM) SGOT/AST 11 U/L SGOT/AST [place] ([facility]) Note: Responsible Observer: (CM) TOTAL BILI <0.7 MG/DL TOTAL BILI [place] ([facility]) Note: Responsible Observer: (CM) SGPT/ALT 12 U/L SGPT/ALT [place] ([facility]) Note: Responsible Observer: (CM) Sodium [Moles/volume] in Serum, Plasma or Blood 129 mEq/L Below low normal SODIUM [place] ([facility]) Note: Responsible Observer: (CM) TOTAL PROTEIN 5.6 G/DL Below low normal [facility] Note: Responsible Observer: (CM) ID Date Data Source [id number] 10/14/2019 06:52:00 AM EST [facility] Name Value Range Interpretation Code Description Data Neva rce(s) Supporting Document(s) COMPREHENSIVE METABOLIC PANEL [facility] COMPREHENSIVE METABOLIC PANEL Sodium [Moles/volume] in Serum or Plasma 129 mEq/L 134 - 153 L [facility] Potassium [Moles/volume] in Serum or Plasma 4.0 mEq/L 3.6 - 5.0 [facility] Chloride [Moles/volume] in Serum or Plasma 92 mEq/L 98 - 107 L [facility] Carbon dioxide, total [Moles/volume] in Serum or Plasma 26 MEQ/L 22 - 30 [facility] Glucose [Mass/volume] in Serum or Plasma 117 MG/DL 65 - 110 H [facility] BUN 5 MG/DL 7 - 21 L [facility] Creatinine [Mass/volume] in Serum or Plasma 0.7 MG/DL 0.7 - 1.5 [facility] BUN/CREAT 7 8 - 27 L [facility] Protein [Mass/volume] in Serum or Plasma 5.6 G/DL 6.3 - 8.2 L [facility] Albumin [Mass/volume] in Serum or Plasma 3.6 G/DL 3.9 - 5.0 L [facility] Globulin [Mass/volume] in Serum by calculation 2.0 GM/DL 2.4 - 3.2 L [facility] A/G RATIO 1.8 0.8 - 2.0 [facility] Calcium [Mass/volume] in Serum or Plasma 8.8 MG/DL 8.4 - 10.2 [facility] Bilirubin.total [Mass/volume] in Serum or Plasma <0.7 MG/DL 0.2 - 1.3 [facility] Alkaline phosphatase [Enzymatic activity/volume] in Serum or Plasma 98 U/L 38 - 126 [facility] Aspartate aminotransferase [Enzymatic activity/volume] in Serum or Plasma 11 U/L 5 - 40 [facility] Alanine aminotransferase [Enzymatic activity/volume] in Seru m or Plasma 12 U/L 7 - 56 [facility] Anion gap 3 in Serum or Plasma 11.0 mmol/L 8.0 - 16.0 [facility] AGE 84 yrs [facility] NON-AA GFR >60 mL/min [facility] AFR AMER GFR >60 mL/min [facility] Male GFR In terprentation 20-49 [...] >32 mL/min Normal ID Date Data Source [id number] 10/14/2019 06:28:00 AM EST [facility] Name Value Range Interpretation Code Description Data Neva rce(s) Supporting Document(s) CBC W/AUTOMATED DIFF [facility] COMPLETE BLOOD COUNT Leukocytes [#/volume] in Blood by Automated count 7.7 10^3/uL 4.2 - 1 1.0 [facility] Erythrocytes [#/volume] in Blood by Automated count 2.86 10^6/uL 4. 50 - 6.30 L [facility] Hemoglobin [Mass/volume] in Blood 9.1 g/dL 14.0 - 16.0 L [facility] Hematocrit [Volume Fraction] of Blood by Automated count 26.3 % 4 1.0 - 51.0 L [facility] Erythrocyte mean corpuscular volume [Entitic volume] by Auto mated count 92.0 fL 80.0 - 94.0 [facility] Erythrocyte mean corpuscular hemoglobin [Entitic mass] by Automated count 31.8 pg 27.0 - 34.0 [facility] [facility] Erythrocyte mean corpuscular hemoglobin concentration [Mass/volume] by Automated count 34.6 g/dL 31.0 - 36.0 [facility] Erythrocyte distribution width [Ratio] by Automated count 14.6 % 11.5 - 14.8 [facility] Platelets [#/volume] in Blood by Automated count 268 10^3/uL 150 - 45 0 [facility] Platelet mean volume [Entitic volume] in Blood by Automated count 8.4 fL 7.4 - 10.4 [facility] Neutrophils/100 leukocytes in Blood by Automated count 79.2 % 37. 0 - 80.0 [facility] Lymphocytes/100 leukocytes in Blood by Manual count 6.0 % 25.0 - 40.0 L [facility] Monocytes/100 leukocytes in Blood by Automated count 9.5 % 3.0 - 8.0 H [facility] Eosinophils/100 leukocytes in Blood by Automated count 4.1 % 0.0 - 7.0 [facility] Basophils/100 leukocytes in Blood by Automated count 0.5 % 0.0 - 2.0 [facility] %IG 0.7 % 0.0 - [facility] % 0.0 - 0.0 [facility] al Neutrophils [#/volume] in Blood by Automated count 6.06 10^3/uL 2.00 - 6.90 [facility] Lymphocytes [#/volume] in Blood by Automated count 0.46 10^3/uL 0.60 - 3.40 L [facility] Monocytes [#/volume] in Blood by Automated count 0.73 10^3/uL 0.00 - 0.90 [facility] Eosinophils [#/volume] in Blood by Automated count 0.31 10^3/uL 0.00 - 0.70 [facility] Basophils [#/volume] in Blood by Automated count 0.04 10^3/uL 0.00 - 0.20 [facility] #IG 0.05 10^3/uL 0.00 - 0.10 [facility]ital #NRBC 0.00 10^3/uL 0.00 - 0.00 [facility] MANUAL DIFF NOT INDICATED [facility] RBC MORPH NOT INDICATED [facility] spital ID Date Data Source [id number] 10/13/2019 01:46:[address] [facility] Name Value Range Interpretation Code Description Data Neva rce(s) Supporting Document(s) Leukocytes [#/volume] in Blood by Automated count 8.2 10*3/uL 4-10 [facility] Erythrocytes [#/volume] in Blood by Automated count 2.89 10*6/uL 4.6- 6.1 L [facility] Hemoglobin [Mass/volume] in Blood 9.5 g/dL 13.5-18 L [facility] Hematocrit [Volume Fraction] of Blood by Automated count 27.1 % 4 1-53 L [facility] Erythrocyte mean corpuscular volume [Entitic volume] by Auto mated count 93.7 fL 80-96 [facility] Erythrocyte mean corpuscular hemoglobin [Entitic mass] by Automated count 33.0 pg 27-33 [facility] Erythrocyte mean corpuscular hemoglobin concentration [Mass/volume] by Automated count 35.2 g/dL 32.0-36.0 [facility] [Ratio] by Automated count 15.2 % 11.5-14.5 H [facility] Platelets [#/volume] in Blood by Automated count 292 10*3/uL 150-400 [facility] Differential cell count method - Blood [facility] Neutrophils/100 leukocytes in Blood by Automated count 80 % [facility] Lymphocytes/100 leukocytes in Blood by Automated count 7 % [facility] Monocytes/100 leukocytes in Blood by Automated count 9 % [facility] Eosinophils/100 leukocytes in Blood by Automated count 3 % [facility] Basophils/100 leukocytes in Blood by Automated count 1 % [facility] Neutrophils [#/volume] in Blood by Automated count 6.58 10*3/uL 1.8-7 .0 [facility] Lymphocytes [#/volume] in Blood by Automated count 0.56 10*3/uL 1.2-4 .0 L [facility] Monocytes [#/volume] in Blood by Automated count 0.72 10*3/uL 0-0.8 [facility] Eosinophils [#/volume] in Blood by Automated count 0.23 10*3/uL 0-0.5 [facility] Basophils [#/volume] in Blood by Automated count 0.09 10*3/uL 0-0.2 [facility] Nucleated erythrocytes/100 leukocytes [Ratio] in Blood by Automated count 0 /100{WBCs} 0-0 [facility] ID Date Data Source [id number] 10/13/2019 02:05:47 PM [facility] Name Value Range Interpretation Code Description Data Neva rce(s) Supporting Document(s) Bicarbonate [Moles/volume] in Serum 24 mmol/L 22-29 [facility] Chloride [Moles/volume] in Serum or Plasma 93 mmol/L 98-107 L [facility] Creatinine [Mass/volume] in Serum or Plasma 0.74 mg/dL 0.70-1.20 [facility] Glucose [Mass/volume] in Serum or Plasma 156 mg/dL 70-140 H [facility] Potassium [Moles/volume] in Serum or Plasma 4.0 mmol/L 3.4-5.1 [facility] Sodium [Moles/volume] in Serum or Plasma 127 mmol/L 136-145 L [facility] Urea nitrogen [Mass/volume] in Serum or Plasma 5 mg/dL 8-23 [facility] Anion gap 3 in Serum or Plasma 10 mmol/L 8-15 [facility] Osmolality of Serum or Plasma by calculation 264 mosm/kg 275-300 [facility] Creatinine/Urea nitrogen [Mass Ratio] in Serum or Plasma 7 [facility] Calcium [Mass/volume] in Serum or Plasma 8.5 mg/dL 8.8-10.2 [facility] Glomerular filtration rate/1.73 sq M pre dicted among non-blacks [Volume Rate/Area] in Serum or Plasma by Creatinine-based formula (MDRD) >6 0 [facility] Glomerular filtration rate/1.73 sq M pre dicted among blacks [Volume Rate/Area] in Serum or Plasma by Creatinine-based formula (MDRD) >60 [facility] ID Date Data Source [id number] 10/12/2019 01:25:[address] [facility] Name Value Range Interpretation Code Description Data Neva e(s) Supporting Document(s) Leukocytes [#/volume] in Blood by Automated count 6.7 10*3/uL 4-10 [facility] Erythrocytes [#/volume] in Blood by Automated count 2.64 10*6/uL 4.6- 6.1 [facility] Hemoglobin [Mass/volume] in Blood 8.7 g/dL 13.5-18 L [facility] Hematocrit [Volume Fraction] of Blood by Automated count 24.7 % 4 1-53 [facility] Erythrocyte mean corpuscular volume [Entitic volume] by Auto mated count 93.4 fL 80-96 [facility] Erythrocyte mean corpuscular hemoglobin [Entitic mass] by Automated count 32.9 pg 27-33 [facility] Erythrocyte mean corpuscular hemoglobin concentration [Mass/volume] by Automated count 35.2 g/dL 32.0-36.0 [facility] width [Ratio] by Automated count 15.1 % 11.5-14.5 H [facility] Platelets [#/volume] in Blood by Automated count 281 10*3/uL 150-400 [facility] Differential cell count method - Blood [facility] Neutrophils/100 leukocytes in Blood by Automated count 77 % [facility] Lymphocytes/100 leukocytes in Blood by Automated count 9 % [facility] Monocytes/100 leukocytes in Blood by Automated count 10 % [facility] Eosinophils/100 leukocytes in Blood by Automated count 3 % [facility] Basophils/100 leukocytes in Blood by Automated count 1 % [facility] Neutrophils [#/volume] in Blood by Automated count 5.15 10*3/uL 1.8-7 .0 [facility] Lymphocytes [#/volume] in Blood by Automated count 0.60 10*3/uL 1.2-4 .0 L [facility] Monocytes [#/volume] in Blood by Automated count 0.69 10*3/uL 0-0.8 [facility] Eosinophils [#/volume] in Blood by Automated count 0.22 10*3/uL 0-0.5 [facility] Basophils [#/volume] in Blood by Automated count 0.06 10*3/uL 0-0.2 [facility] Nucleated erythrocytes/100 leukocytes [Ratio] in Blood by Automated count 0 /100{WBCs} 0-0 [facility] ID Date Data Source [id number] 10/12/2019 01:54:48 AM [facility] Name Value Range Interpretation Code Description Data Neva rce(s) Supporting Document(s) Bicarbonate [Moles/volume] in Serum 23 mmol/L 22-29 [facility] Chloride [Moles/volume] in Serum or Plasma 95 mmol/L 98-107 L [facility] Creatinine [Mass/volume] in Serum or Plasma 0.59 mg/dL 0.70-1.20 L [facility] Glucose [Mass/volume] in Serum or Plasma 115 mg/dL 70-140 [facility] Potassium [Moles/volume] in Serum or Plasma 3.3 mmol/L 3.4-5.1 L [facility] Sodium [Moles/volume] in Serum or Plasma 129 mmol/L 136-145 L [facility] Urea nitrogen [Mass/volume] in Serum or Plasma 6 mg/dL 8-23 L [facility] Anion gap 3 in Serum or Plasma 11 mmol/L 8-15 [facility] Osmolality of Serum or Plasma by calculation 267 mosm/kg 275-300 L [facility] Creatinine/Urea nitrogen [Mass Ratio] in Serum or Plasma 10 [facility] Calcium [Mass/volume] in Serum or Plasma 8.4 mg/dL 8.8-10.2 L [facility] Glomerular filtration rate/1.73 sq M pre dicted among non-blacks [Volume Rate/Area] in Serum or Plasma by Creatinine-based formula (MDRD) >6 0 [facility] Glomerular filtration rate/1.73 sq M pre dicted among blacks [Volume Rate/Area] in Serum or Plasma by Creatinine-based formula (MDRD) >60 [facility] ID Date Data Source [id number] 10/11/2019 04:54:[address] [facility] Name Value Range Interpretation Code Description Data Neva rce(s) Supporting Document(s) Glucose [Mass/volume] in Capillary blood by Glucometer 70 mg/dL 70- 140 [facility] ID Date Data Source [id number] 10/11/2019 04:37:[address] [facility] Name Value Range Interpretation Code Description Data Neva rce(s) Supporting Document(s) Leukocytes [#/volume] in Blood by Automated count 6.7 10*3/uL 4-10 [facility] Erythrocytes [#/volume] in Blood by Automated count 2.82 10*6/uL 4.6- 6.1 L [facility] Hemoglobin [Mass/volume] in Blood 9.3 g/dL 13.5-18 L [facility] Hematocrit [Volume Fraction] of Blood by Automated count 26.2 % 4 1-53 L [facility] Erythrocyte mean corpuscular volume [Entitic volume] by Auto mated count 93.0 fL 80-96 [facility] Erythrocyte mean corpuscular hemoglobin [Entitic mass] by Automated count 33.2 pg 27-33 H [facility] Erythrocyte mean corpuscular hemoglobin concentration [Mass/volume] by Automated count 35.7 g/dL 32.0-36.0 [facility] width [Ratio] by Automated count 15.5 % 11.5-14.5 H [facility] Platelets [#/volume] in Blood by Automated count 263 10*3/uL 150-400 [facility] Differential cell count method - Blood [facility] Neutrophils/100 leukocytes in Blood by Automated count 78 % [facility] Lymphocytes/100 leukocytes in Blood by Automated count 7 % [facility] Monocytes/100 leukocytes in Blood by Automated count 9 % [facility] Eosinophils/100 leukocytes in Blood by Automated count 5 % [facility] Basophils/100 leukocytes in Blood by Automated count 1 % [facility] Neutrophils [#/volume] in Blood by Automated count 5.23 10*3/uL 1.8-7 .0 [facility] Lymphocytes [#/volume] in Blood by Automated count 0.43 10*3/uL 1.2-4 .0 L [facility] Monocytes [#/volume] in Blood by Automated count 0.62 10*3/uL 0-0.8 [facility] Eosinophils [#/volume] in Blood by Automated count 0.34 10*3/uL 0-0.5 [facility] Basophils [#/volume] in Blood by Automated count 0.05 10*3/uL 0-0.2 [facility] Nucleated erythrocytes/100 leukocytes [Ratio] in Blood by Automated count 0 /100{WBCs} 0-0 [facility] ID Date Data Source [id number] 10/11/2019 05:02:[address] [facility] Name Value Range Interpretation Code Description Data Neva rce(s) Supporting Document(s) Bicarbonate [Moles/volume] in Serum 25 mmol/L 22-29 [facility] Chloride [Moles/volume] in Serum or Plasma 93 mmol/L 98-107 L [facility] Creatinine [Mass/volume] in Serum or Plasma 0.59 mg/dL 0.70-1.20 L [facility] Glucose [Mass/volume] in Serum or Plasma 123 mg/dL 70-140 [facility] Potassium [Moles/volume] in Serum or Plasma 3.7 mmol/L 3.4-5.1 [facility] Sodium [Moles/volume] in Serum or Plasma 128 mmol/L 136-145 L [facility] Urea nitrogen [Mass/volume] in Serum or Plasma 6 mg/dL 8-23 L [facility] Anion gap 3 in Serum or Plasma 10 mmol/L 8-15 [facility] Osmolality of Serum or Plasma by calculation 265 mosm/kg 275-300 L [facility] Creatinine/Urea nitrogen [Mass Ratio] in Serum or Plasma 10 [facility] Calcium [Mass/volume] in Serum or Plasma 8.5 mg/dL 8.8-10.2 L [facility] Glomerular filtration rate/1.73 sq M pre dicted among non-blacks [Volume Rate/Area] in Serum or Plasma by Creatinine-based formula (MDRD) >6 0 [facility] Glomerular filtration rate/1.73 sq M pre dicted among blacks [Volume Rate/Area] in Serum or Plasma by Creatinine-based formula (MDRD) >60 [facility] ID Date Data Source [id number] 10/10/2019 07:04:[address] [facility] Name Value Range Interpretation Code Description Data Neva rce(s) Supporting Document(s) [facility] [id number] [facility] [file] [id number] ID Date Data Source [id number] 10/13/2019 09:25:[address] [facility] Service Cmnt XXX-Imp : O+P Stl [...] rce(s) Supporting Document(s) ID Date Data Source [id number] 10/11/2019 09:57:[address] [facility] XXX-Imp : GI Panel [...] : Not DetectedE histolyt DNA Stl Ql MELODIE non-probe : Not DetectedG lamblia DNA Stl [...] rce(s) Supporting Document(s) ID Date Data Source [id number] 10/10/2019 09:31:[address] [facility] Name Value Range Interpretation Code Description Data Neva rce(s) Supporting Document(s) Osmolality of Urine 329 mosm/kg 300-1000 [facility] ID Date Data Source [id number] 10/10/2019 03:59:[address] [facility] Name Value Range Interpretation Code Description Data Neva rce(s) Supporting Document(s) [facility] [id number]OI3kP3rRXO4LGiFLqMtLLbkIzLb lbm [file] mjyeqXKXGfEo9TPK2414Kg+TWmU0jKV2fod/Livier+WHjyVGOSDp9maXpdkM1K3ADypFLHoAK8lj6njuJ gZMwaHzv+FsWQAuI4A6YApRhXlNZDOM8vFoMZrp7tY QJ9fvMUCPRVX9fwushShWWD4R8HuFADdnnGt5YXInaLK6laVMmZtZLskilXCvvHUBkAi1vrt4OJ365dL fQLh0AoBVM7Nq47qZCx0To3IMUaWfkmOPcSqXIxlTYiE4HwQKfyh101cqwCjuQgmPzOpP0g7olvppxfY fPGoY2YYg6iYMjVpjA6XGcUgYM8x0GCGFnarkeANF/ dBmuvXYZGKID3SPKNB9joiZGZRpaQvGxdTfCNroC0YMfKzkUfp4BYXPzwmerWSV/lXzosIIINWXU7OWG OG6awnJHYIjfPbRpfHjZPqlN6RPdRltPOR+TSyC1cAVzmKSFmOYk7JMnJxsR5YVlYlpP8lbAPjttlaVT ONdxwkUHaFcWB0zIkjOZqmNWPswntrez1aWC10pSTx K3bQEn1HjefTYTl61MBOba7cSLo9OnyfGkVBB9BLgcZIUUMayHXsTuNXmcyu3ihpesAfGV3xpwxQEEMZ NufL2EM2ZY264F30Xk0tKWcCGZMwenRvXyS8c+je4SpA3PaskWnYPu6hOovrpFe0TBSeaouPQ5waeYhv UjzUfTeRSiizeugb4pJmAAjS3KLdM1DBfBYNjsoSOX 7aCbe5XNUdhydME9yewWbpKmrCdUjSUquzvlaj9zLhCDzA1TWfX0TXzUFOgvlUYjt69bmRRyuouvEqai [facility]/kgQpCRZBz6VCTNfjEqa9KRDYfNY2AFdqHBVDM6WCkJgS/efkcAqIdXYOTsFj0ZXd5JK62dnXi5C [file] [id number] ID Date Data Source [id number] 10/10/2019 07:17:53 AM [facility] Name Value Range Interpretation Code Description Data Neva rce(s) Supporting Document(s) Sodium [Moles/volume] in Urine 105 mmol/L [facility] ID Date Data Source [id number] 10/10/2019 06:45:[address] [facility] Name Value Range Interpretation Code Description Data Neva rce(s) Supporting Document(s) Thyrotropin [Units/volume] in Serum or Plasma 5.720 u[IU]/mL 0.270-4. 200 H [facility] ID Date Data Source [id number] 10/10/2019 05:46:01 PM [facility] Value Range Interpretation Code Description Data Neva rce(s) Supporting Document(s) Cortisol [Mass/volume] in Serum or Plasma 16.5 ug/dL [facility] Ref range for 6-10 am samples: 6.0-18.4 ug/dLRef range for 4-8 pm samples: 2.7- 10.5 ug/dLRef range not established for other times. ID Date Data Source [id number] 10/10/2019 03:46:35 AM [facility] system Value Range Interpretation Code Description Data Neva rce(s) Supporting Document(s) Leukocytes [#/volume] in Blood by Automated count 6.8 10*3/uL 4-10 [facility] Erythrocytes [#/volume] in Blood by Automated count 2.62 10*6/uL 4.6- 6.1 L [facility] Hemoglobin [Mass/volume] in Blood 8.5 g/dL 13.5-18 L [facility] Hematocrit [Volume Fraction] of Blood by Automated count 24.2 % 4 1-53 L [facility] Erythrocyte mean corpuscular volume [Entitic volume] by Auto mated count 92.4 fL 80-96 [facility] Erythrocyte mean corpuscular hemoglobin [Entitic mass] by Automated count 32.5 pg 27-33 [facility] Erythrocyte mean corpuscular hemoglobin concentration [Mass/volume] by Automated count 35.2 g/dL 32.0-36.0 [facility] width [Ratio] by Automated count 15.0 % 11.5-14.5 H [facility] Platelets [#/volume] in Blood by Automated count 228 10*3/uL 150-400 [facility] Differential cell count method - Blood [facility] Neutrophils/100 leukocytes in Blood by Automated count 73 % [facility] Lymphocytes/100 leukocytes in Blood by Automated count 8 % [facility] Monocytes/100 leukocytes in Blood by Automated count 12 % [facility] Eosinophils/100 leukocytes in Blood by Automated count 6 % [facility] Basophils/100 leukocytes in Blood by Automated count 1 % [facility] Neutrophils [#/volume] in Blood by Automated count 4.99 10*3/uL 1.8-7 .0 [facility] Lymphocytes [#/volume] in Blood by Automated count 0.57 10*3/uL 1.2-4 .0 L [facility] Monocytes [#/volume] in Blood by Automated count 0.78 10*3/uL 0-0.8 [facility] Eosinophils [#/volume] in Blood by Automated count 0.41 10*3/uL 0-0.5 [facility] Basophils [#/volume] in Blood by Automated count 0.07 10*3/uL 0-0.2 [facility] Nucleated erythrocytes/100 leukocytes [Ratio] in Blood by Automated count 0 /100{WBCs} 0-0 [facility] ID Date Data Source [id number] 10/10/2019 04:03:[address] [facility] Name Value Range Interpretation Code Description Data Neva rce(s) Supporting Document(s) Bicarbonate [Moles/volume] in Serum 23 mmol/L 22-29 [facility] Chloride [Moles/volume] in Serum or Plasma 93 mmol/L 98-107 L [facility] Creatinine [Mass/volume] in Serum or Plasma 0.63 mg/dL 0.70-1.20 L [facility] Glucose [Mass/volume] in Serum or Plasma 120 mg/dL 70-140 [facility] Potassium [Moles/volume] in Serum or Plasma 3.9 mmol/L 3.4-5.1 [facility] Sodium [Moles/volume] in Serum or Plasma 125 mmol/L 136-145 L [facility] Urea nitrogen [Mass/volume] in Serum or Plasma 9 mg/dL 8-23 [facility] Anion gap 3 in Serum or Plasma 9 mmol/L 8-15 [facility] Osmolality of Serum or Plasma by calculation 260 mosm/kg 275-300 L [facility] Creatinine/Urea nitrogen [Mass Ratio] in Serum or Plasma 14 [facility] Calcium [Mass/volume] in Serum or Plasma 8.3 mg/dL 8.8-10.2 L [facility] Glomerular filtration rate/1.73 sq M pre dicted among non-blacks [Volume Rate/Area] in Serum or Plasma by Creatinine-based formula (MDRD) >6 0 [facility] Glomerular filtration rate/1.73 sq M pre dicted among blacks [Volume Rate/Area] in Serum or Plasma by Creatinine-based formula (MDRD) >60 [facility] ID Date Data Source [id number] 10/09/2019 12:28:[address] [facility] CT HEAD WITHOUT CONTRAST [id number] RESU LTInterpreted by:SHELBI WilhelmIndication: POST TPA 24 HR SCANExam: CT HEAD WITHOUT CONTRAST [id number] Technique: Unenhanced 5.0 mm and thin axial [...] Name Value Range Interpretation Code Description Data [facility](s) Supporting Document(s) ID Date Data Source [id number] 10/09/2019 08:13:[address] [facility] Service Cmnt XXX-Imp : Microorganism XXX Cult : NEGATIVE for fecal occult blood by immunochromatography. This test is not designed to detect bleeding from the upper GI tract. To detect bleeding from the upper tract, order Fecal Occult Blood, Upper GI (Hemoccult-SENSA). Name Value Range Interpretation Code Description Data Neva rce(s) Supporting Document(s) ID Date Data Source [id number] 10/09/2019 05:30:[address] [facility] Name Value Range Interpretation Code Description Data [facility](s) Supporting Document(s) Hemoglobin A1c/Hemoglobin.total in Blood by HPLC 5.1 % 4.0-6.0 [facility] (NOTE)<5.7% Average risk of diabetes (ADA)5.7-6.4% Increased risk of diabetes(ADA)>/= 6.5% Diagnostic for diabetes(ADA) Glucose mean value [Mass/volume] in Blood Estimated fr om glycated hemoglobin 100 mg/dL <126 [facility] ID Date Data Source [id number] 10/09/2019 05:00:[address] [facility] Name Value Range Interpretation Code Description Data Neva rce(s) Supporting Document(s) Leukocytes [#/volume] in Blood by Automated count 6.6 10*3/uL 4-10 [facility] Erythrocytes [#/volume] in Blood by Automated count 2.48 10*6/uL 4.6- 6.1 L [facility] Hemoglobin [Mass/volume] in Blood 8.1 g/dL 13.5-18 L [facility] Hematocrit [Volume Fraction] of Blood by Automated count 22.7 % 4 1-53 L [facility] Erythrocyte mean corpuscular volume [Entitic volume] by Auto mated count 91.8 fL 80-96 [facility] Erythrocyte mean corpuscular hemoglobin [Entitic mass] by Automated count 32.8 pg 27-33 [facility] Erythrocyte mean corpuscular hemoglobin concentration [Mass/volume] by Automated count 35.7 g/dL 32.0-36.0 [facility] width [Ratio] by Automated count 15.4 % 11.5-14.5 H [facility] Platelets [#/volume] in Blood by Automated count 213 10*3/uL 150-400 [facility] Differential cell count method - Blood [facility] Neutrophils/100 leukocytes in Blood by Automated count 78 % [facility] Lymphocytes/100 leukocytes in Blood by Automated count 7 % [facility] Monocytes/100 leukocytes in Blood by Automated count 11 % [facility] Eosinophils/100 leukocytes in Blood by Automated count 3 % [facility] Basophils/100 leukocytes in Blood by Automated count 1 % [facility] Neutrophils [#/volume] in Blood by Automated count 5.24 10*3/uL 1.8-7 .0 [facility] Lymphocytes [#/volume] in Blood by Automated count 0.46 10*3/uL 1.2-4 .0 L [facility] Monocytes [#/volume] in Blood by Automated count 0.71 10*3/uL 0-0.8 [facility] Eosinophils [#/volume] in Blood by Automated count 0.20 10*3/uL 0-0.5 [facility] Basophils [#/volume] in Blood by Automated count 0.05 10*3/uL 0-0.2 [facility] Nucleated erythrocytes/100 leukocytes [Ratio] in Blood by Automated count 0 /100{WBCs} 0-0 [facility] ID Date Data Source [id number] 10/09/2019 05:26:[address] [facility] Name Value Range Interpretation Code Description Data Neva rce(s) Supporting Document(s) Cholesterol [Mass/volume] in Serum or Plasma 107 mg/dL <200 [facility] Triglyceride [Mass/volume] in Serum or Plasma 59 mg/dL <150 [facility] Cholesterol in HDL [Mass/volume] in Serum or Plasma 50 mg/dL >40 [facility] Cholesterol in LDL [Mass/volume] in Serum or Plasma by calcu lation 45 mg/dL <100 [facility] Cholesterol in VLDL [Mass/volume] in Serum or Plasma by calc ulation 12 mg/dl 16-42 L [facility] Cholesterol non HDL [Mass/volume] in Serum or Plasma 58 mg/dL <130 [facility] ID Date Data Source [id number] 10/09/2019 05:26:[address] [facility] Name Value Range Interpretation Code Description Data Neva rce(s) Supporting Document(s) Bicarbonate [Moles/volume] in Serum 23 mmol/L 22-29 [facility] Chloride [Moles/volume] in Serum or Plasma 95 mmol/L 98-107 L [facility] Creatinine [Mass/volume] in Serum or Plasma 0.63 mg/dL 0.70-1.20 L [facility] Glucose [Mass/volume] in Serum or Plasma 124 mg/dL 70-140 [facility] Potassium [Moles/volume] in Serum or Plasma 3.7 mmol/L 3.4-5.1 [facility] Sodium [Moles/volume] in Serum or Plasma 127 mmol/L 136-145 L [facility] Urea nitrogen [Mass/volume] in Serum or Plasma 14 mg/dL 8- [facility] Anion gap 3 in Serum or Plasma 9 mmol/L 8-15 [facility] Osmolality of Serum or Plasma by calculation 266 mosm/kg 275-300 L [facility] Creatinine/Urea nitrogen [Mass Ratio] in Serum or Plasma 22 [facility] Calcium [Mass/volume] in Serum or Plasma 7.9 mg/dL 8.8-10.2 L [facility] Glomerular filtration rate/1.73 sq M pre dicted among non-blacks [Volume Rate/Area] in Serum or Plasma by Creatinine-based formula (MDRD) >6 0 [facility] Glomerular filtration rate/1.73 sq M pre dicted among blacks [Volume Rate/Area] in Serum or Plasma by Creatinine-based formula (MDRD) >60 [facility] ID Date Data Source [id number] 10/09/2019 05:26:[address] [facility] Name Value Range Interpretation Code Description Data Neva rce(s) Supporting Document(s) Thyrotropin [Units/volume] in Serum or Plasma 4.080 u[IU]/mL 0.270-4. 200 [facility] ID Date Data Source [id number] 10/08/2019 03:11:[address] 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 Name Value Range Interpretation Code Description Data Neva e(s) Supporting Document(s) Leukocytes [#/volume] in Blood by Automated count 9.9 10*3/uL 4-10 [facility] Erythrocytes [#/volume] in Blood by Automated count 2.58 10*6/uL 4.6- 6.1 L [facility] Hemoglobin [Mass/volume] in Blood 8.3 g/dL 13.5-18 L [facility] Hematocrit [Volume Fraction] of Blood by Automated count 23.7 % 4 1-53 L [facility] Erythrocyte mean corpuscular volume [Entitic volume] by Auto mated count 91.8 fL 80-96 [facility] Erythrocyte mean corpuscular hemoglobin [Entitic mass] by Automated count 32.3 pg 27-33 [facility] Erythrocyte mean corpuscular hemoglobin concentration [Mass/volume] by Automated count 35.2 g/dL 32.0-[facility].0 [facility] width [Ratio] by Automated count 15.4 % 11.5-14.5 H [facility] Platelets [#/volume] in Blood by Automated count 253 10*3/uL 150-400 [facility] ID Date Data Source [id number] 10/08/2019 12:18:[address] [facility] MR BRAIN WITHOUT CONTRAST [id number] RES ULTInterpreted by:SHELBI WilhelmEXAMINATION: MR BRAIN WITHOUT CONTRAST [id number] INDICATION: expressive aphasia and left arm numbness.TECHNIQUE: [...] rce(s) Supporting Document(s) ID Date Data Source [id number] 10/08/2019 11:09:[address] [facility] Name Value Range Interpretation Code Description Data Neva rce(s) Supporting Document(s) EKG [facility] TAGMVf1uGdMCDoKkc8ExIpXlWAEpCD0dlhd8P8R5xZZmB5NeeGJmn3fqD4YxB3UqMBBhDFKXFV0QyAUh jb2 [file] 9htZF6CGQcSfyNWm1Cj9AhjaP1gqTuGnq6WWL4IcGzRC7B ID Date Data Source [id number] 10/13/2019 10:39:[address] [facility] Service Cmnt XXX-Imp : L BICEPMicroorgan ism XXX Cult : No growth (qualifier value) Name Value Range Interpretation Code Description Data Neva rce(s) Supporting Document(s) ID Date Data Source [id number] 10/13/2019 10:39:[address] [facility] XXX-Imp : RT FOREARMMicroor ganism XXX Cult : No growth (qualifier value) Name Value Range Interpretation Code Description Data Neva rce(s) Supporting Document(s) ID Date Data Source [id number] 10/08/2019 11:11:[address] [facility] Service [facility] XXX-Imp : Microorganism XXX [...] rce(s) Supporting Document(s) ID Date Data Source [id number] 10/08/2019 08:41:[address] [facility] CT ANGIOGRAPHY HEAD [id number] RESULTInt erpreted by:Rachel Wilhelm MDINDICATION: Aphasia, and [...] are severe tandem narrowing of the right [employer] P2 segment. There is minimal distal reconstitution.Severe narrowing of the left [employer] P2 segment with the distal reconstitution.The major dural venous sinuses are patent.IMPRESSION:1. 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 2. [...] rce(s) Supporting Document(s) ID Date Data Source [id number] 10/08/2019 08:41:[address] [facility] CT ANGIOGRAPHY NECK [id number] RESULTInt erpreted by:Rachel Wilhelm MDINDICATION: Aphasia, and [...] are severe tandem narrowing of the right [employer] P2 segment. There is minimal distal reconstitution.Severe narrowing of the left [employer] P2 segment with the distal reconstitution.The major dural venous sinuses are patent.IMPRESSION:1. 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 2. [...] rce(s) Supporting Document(s) ID Date Data Source [id number] 10/08/2019 07:04:[address] [facility] Name Value Range Interpretation Code Description Data [facility] rce(s) Supporting Document(s) Leukocytes [#/volume] in Blood by Automated count 12.0 10*3/uL 4-10 H [facility] Erythrocytes [#/volume] in Blood by Automated count 2.92 10*6/uL 4.6- 6.1 L [facility] Hemoglobin [Mass/volume] in Blood 9.4 g/dL 13.5-18 L [facility] Hematocrit [Volume Fraction] of Blood by Automated count 26.8 % 4 1-53 L [facility] Erythrocyte mean corpuscular volume [Entitic volume] by Auto mated count 91.6 fL 80-96 [facility] Erythrocyte mean corpuscular hemoglobin [Entitic mass] by Automated count 32.0 pg 27-33 [facility] Erythrocyte mean corpuscular hemoglobin concentration [Mass/volume] by Automated count 34.9 g/dL 32.0-36.0 [facility] width [Ratio] by Automated count 15.4 % 11.5-14.5 H [facility] Platelets [#/volume] in Blood by Automated count 269 10*3/uL 150-400 [facility] Differential cell count method - Blood [facility] Neutrophils/100 leukocytes in Blood by Automated count 88 % [facility] Lymphocytes/100 leukocytes in Blood by Automated count 4 % [facility] Monocytes/100 leukocytes in Blood by Automated count 8 % [facility] Eosinophils/100 leukocytes in Blood by Automated count 0 % [facility] Basophils/100 leukocytes in Blood by Automated count 0 % [facility] Neutrophils [#/volume] in Blood by Automated count 10.62 10*3/uL 1.8- 7.0 H [facility] Lymphocytes [#/volume] in Blood by Automated count 0.42 10*3/uL 1.2-4 .0 L [facility] Monocytes [#/volume] in Blood by Automated count 0.95 10*3/uL 0-0.8 H [facility] Eosinophils [#/volume] in Blood by Automated count 0.01 10*3/uL 0-0.5 [facility] Basophils [#/volume] in Blood by Automated count 0.04 10*3/uL 0-0.2 [facility] Nucleated erythrocytes/100 leukocytes [Ratio] in Blood by Automated count 0 /100{WBCs} 0-0 [facility] ID Date Data Source [id number] 10/08/2019 07:29:[address] [facility] Name Value Range Interpretation Code Description Data Neva rce(s) Supporting Document(s) Cholesterol [Mass/volume] in Serum or Plasma 126 mg/dL <200 [facility] Triglyceride [Mass/volume] in Serum or Plasma 62 mg/dL <150 [facility] Cholesterol in HDL [Mass/volume] in Serum or Plasma 61 mg/dL >40 [facility] Cholesterol in LDL [Mass/volume] in Serum or Plasma by calcu lation 53 mg/dL <100 [facility] Cholesterol in VLDL [Mass/volume] in Serum or Plasma by calc ulation 12 mg/dl 16-42 L [facility] Cholesterol non HDL [Mass/volume] in Serum or Plasma 65 mg/dL <130 [facility] ID Date Data Source [id number] 10/08/2019 07:29:[address] [facility] Name Value Range Interpretation Code Description Data Neva rce(s) Supporting Document(s) Albumin [Mass/volume] in Serum or Plasma by Bromocresol green (BCG) dye binding method 3.7 g/dL 3.5-5.2 [facility] Bilirubin.total [Mass/volume] in Serum or Plasma 0.5 mg/dL <1.2 [facility] Calcium [Mass/volume] in Serum or Plasma 8.3 mg/dL 8.8-10.2 L [facility] Chloride [Moles/volume] in Serum or Plasma 93 mmol/L 98-107 L [facility] Creatinine [Mass/volume] in Serum or Plasma 0.75 mg/dL 0.70-1.20 [facility] Glucose [Mass/volume] in Serum or Plasma 131 mg/dL 70-140 [facility] Alkaline phosphatase [Enzymatic activity/volume] in Serum or Plasma 83 U/L 40-129 [facility] Potassium [Moles/volume] in Serum or Plasma 3.6 mmol/L 3.4-5.1 [facility] Protein [Mass/volume] in Serum or Plasma 5.9 g/dL 6.4-8.3 L [facility] Sodium [Moles/volume] in Serum or Plasma 130 mmol/L 136-145 L [facility] Aspartate aminotransferase [Enzymatic activity/volume] in Serum or Plasma 16 U/L <40 [facility] Urea nitrogen [Mass/volume] in Serum or Plasma 19 mg/dL 8-23 [facility] Osmolality of Serum or Plasma by calculation 274 mosm/kg 275-300 L [facility] Creatinine/Urea nitrogen [Mass Ratio] in Serum or Plasma 25 [facility] Bicarbonate [Moles/volume] in Serum 20 mmol/L 22-29 L [facility] Alanine aminotransferase [Enzymatic activity/volume] in Seru m or Plasma 10 U/L <41 [facility] Anion gap 3 in Serum or Plasma 17 mmol/L 8-15 H [facility] Albumin/Globulin [Mass Ratio] in Serum or Plasma 1.7 [facility] Glomerular filtration rate/1.73 sq M pre dicted among non-blacks [Volume Rate/Area] in Serum or Plasma by Creatinine-based formula (MDRD) >6 0 [facility] Glomerular filtration rate/1.73 sq M pre dicted among blacks [Volume Rate/Area] in Serum or Plasma by Creatinine-based formula (MDRD) >60 [facility] ID Date Data Source [id number] 10/08/2019 07:29:[address] [facility] Name Value Range Interpretation Code Description Data Neva rce(s) Supporting Document(s) Thyrotropin [Units/volume] in Serum or Plasma 4.590 u[IU]/mL 0.270-4. 200 [facility] ID Date Data Source [id number] 10/08/2019 11:40:[address] [facility] Name Value Range Interpretation Code Description Data Neva rce(s) Supporting Document(s) Thyroxine (T4) free [Mass/volume] in Serum or Plasma 1.35 ng/dL 0.93- 1.70 [facility] ID Date Data Source [id number] 10/08/2019 07:51:[address] [facility] Name Value Range Interpretation Code Description Data Neva rce(s) Supporting Document(s) Hemoglobin A1c/Hemoglobin.total in Blood by HPLC 5.2 % 4.0-6.0 [facility] (NOTE)<5.7% Average risk of diabetes (ADA)5.7-6.4% Increased risk of diabetes(ADA)>/= 6.5% Diagnostic for diabetes(ADA) Glucose mean value [Mass/volume] in Blood Estimated fr om glycated hemoglobin 103 mg/dL <126 [facility] ID Date Data Source [id number] 10/08/2019 01:41:[address] [facility] XR CHEST FRONTAL ONLY [id number] RESULTI nterpreted by:Yamila Kelly, [facility] INFORMATION: Exam: XR Chest, 1 View Exam [...] rce(s) Supporting Document(s) ID Date Data Source [id number] 10/08/2019 02:04:[address] [facility] Name Value Range Interpretation Code Description Data Neva rce(s) Supporting Document(s) Color of Urine [facility] Clarity of Urine [facility] Specific gravity of Urine by Refractometry automated 1.018 1.003 -1.030 [facility] pH of Urine by Automated test strip 8.0 5.0-8.0 [facility] Protein [Mass/volume] in Urine by Automated test strip Neg [facility] Glucose [Mass/volume] in Urine by Automated test strip Neg [facility] Ketones [Mass/volume] in Urine by Automated test strip 5 mg/dL Neg [facility] A [facility] Bilirubin.total [Presence] in Urine by Automated test strip Negative [facility] Hemoglobin [Presence] in Urine by Automated test strip Neg [facility] Leukocyte esterase [Presence] in Urine by Automated test strip Negative [facility] Nitrite [Presence] in Urine by Automated test strip Negati ve [facility] Leukocytes [#/area] in Urine sediment by Automated count 0 -5 [facility] Erythrocytes [#/area] in Urine sediment by Automated count 0 /HPF 0-3 [facility] ID Date Data Source [id number] 10/08/2019 01:32:[address] [facility] Name Value Range Interpretation Code Description Data Neva rce(s) Supporting Document(s) Ammonia [Moles/volume] in Plasma 17 umol/L 16-60 [facility] ID Date Data Source [id number] 10/08/2019 01:10:03 AM Health system Value Range Interpretation Code Description Data Neva rce(s) Supporting Document(s) Leukocytes [#/volume] in Blood by Automated count 6.9 10*3/uL 4-10 [facility] Erythrocytes [#/volume] in Blood by Automated count 3.13 10*6/uL 4.6- 6.1 L [facility] Hemoglobin [Mass/volume] in Blood 9.9 g/dL 13.5-18 L [facility] Hematocrit [Volume Fraction] of Blood by Automated count 28.8 % 4 1-53 L [facility] Erythrocyte mean corpuscular volume [Entitic volume] by Auto mated count 92.0 fL 80-96 [facility] Erythrocyte mean corpuscular hemoglobin [Entitic mass] by Automated count 31.7 pg 27-33 [facility] Erythrocyte mean corpuscular hemoglobin concentration [Mass/volume] by Automated count 34.5 g/dL 32.0-36.0 [facility] E[facility] distribution width [Ratio] by Automated count 15.6 % 11.5-14.5 H [facility] Platelets [#/volume] in Blood by Automated count 286 10*3/uL 150-400 [facility] Differential cell count method - Blood [facility] Neutrophils/100 leukocytes in Blood by Automated count 77 % [facility] Lymphocytes/100 leukocytes in Blood by Automated count 8 % [facility] Monocytes/100 leukocytes in Blood by Automated count 12 % [facility] Eosinophils/100 leukocytes in Blood by Automated count 3 % [facility] Basophils/100 leukocytes in Blood by Automated count 0 % [facility] Neutrophils [#/volume] in Blood by Automated count 5.33 10*3/uL 1.8-7 .0 [facility] Lymphocytes [#/volume] in Blood by Automated count 0.53 10*3/uL 1.2-4 .0 L [facility] Monocytes [#/volume] in Blood by Automated count 0.79 10*3/uL 0-0.8 [facility] Eosinophils [#/volume] in Blood by Automated count 0.22 10*3/uL 0-0.5 [facility] Basophils [#/volume] in Blood by Automated count 0.02 10*3/uL 0-0.2 [facility] Nucleated erythrocytes/100 leukocytes [Ratio] in Blood by Automated count 0 /100{WBCs} 0-0 [facility] ID Date Data Source [id number] 10/08/2019 01:22:[address] [facility] Name Value Range Interpretation Code Description Data Neva rce(s) Supporting Document(s) Prothrombin time (PT) 13.6 s 12.5-14.9 [facility] INR in Platelet poor plasma by Coagulation assay 1.01 [facility] Routine intensity oral anticoagulation I NR is typically 2.0-3.0. Target INR must be clinically individualized. ID Date Data Source [id number] 10/08/2019 01:22:47 AM Health system Value Range Interpretation Code Description Data Neva rce(s) Supporting Document(s) aPTT in Platelet poor plasma by Coagulation assay 28.3 s 24.0-34. 0 [facility] ID Date Data Source [id number] 10/08/2019 01:31:52 AM EST [facility] Name Value Range Interpretation Code Description Data Neva rce(s) Supporting Document(s) Acetaminophen [Mass/volume] in Serum or Plasma 10.0-30.0 L [facility] ID Date Data Source [id number] 10/08/2019 01:31:52 AM EST [facility] Name Value Range Interpretation Code Description Data Neva rce(s) Supporting Document(s) Ethanol [Mass/volume] in Serum or Plasma Negative [facility] ID Date Data Source [id number] 10/08/2019 01:31:[address] [facility] Name Value Range Interpretation Code Description Data Neva rce(s) Supporting Document(s) Albumin [Mass/volume] in Serum or Plasma by Bromocresol green (BCG) dye binding method 3.9 g/dL 3.5-5.2 [facility] Bilirubin.total [Mass/volume] in Serum or Plasma 0.2 mg/dL <1.2 [facility] Calcium [Mass/volume] in Serum or Plasma 8.8 mg/dL 8.8-10.2 [facility] Chloride [Moles/volume] in Serum or Plasma 91 mmol/L 98-107 L [facility] Creatinine [Mass/volume] in Serum or Plasma 0.80 mg/dL 0.70-1.20 [facility] Glucose [Mass/volume] in Serum or Plasma 121 mg/dL 70-140 [facility] Alkaline phosphatase [Enzymatic activity/volume] in Serum or Plasma 91 U/L 40-129 [facility] Potassium [Moles/volume] in Serum or Plasma 3.6 mmol/L 3.4-5.1 [facility] Protein [Mass/volume] in Serum or Plasma 6.1 g/dL 6.4-8.3 L [facility] Sodium [Moles/volume] in Serum or Plasma 126 mmol/L 136-145 L [facility] Aspartate aminotransferase [Enzymatic activity/volume] in Serum or Plasma 12 U/L <40 [facility] Urea nitrogen [Mass/volume] in Serum or Plasma 17 mg/dL 8-23 [facility] Osmolality of Serum or Plasma by calculation 265 mosm/kg 275-300 L [facility] Creatinine/Urea nitrogen [Mass Ratio] in Serum or Plasma 21 [facility] Bicarbonate [Moles/volume] in Serum 22 mmol/L 22-29 [facility] Alanine aminotransferase [Enzymatic activity/volume] in Seru m or Plasma 11 U/L <41 [facility] Anion gap 3 in Serum or Plasma 13 mmol/L 8-15 [facility] Albumin/Globulin [Mass Ratio] in Serum or Plasma 1.8 [facility] Glomerular filtration rate/1.73 sq M pre dicted among non-blacks [Volume Rate/Area] in Serum or Plasma by Creatinine-based formula (MDRD) >6 0 [facility] Glomerular filtration rate/1.73 sq M pre dicted among blacks [Volume Rate/Area] in Serum or Plasma by Creatinine-based formula (MDRD) >60 [facility] ID Date Data Source [id number] 10/08/2019 01:31:[address] [facility] Name Value Range Interpretation Code Description Data Neva rce(s) Supporting Document(s) Salicylates [Mass/volume] in Serum or Plasma 3.0-30.0 L [facility] ID Date Data Source [id number] 10/08/2019 01:00:[address] [facility] Name Value Range Interpretation Code Description Data Neva rce(s) Supporting Document(s) pH of Venous blood 7.55 7.36-7.41 H [facility] Carbon dioxide [Partial pressure] in Venous blood 28 mmHg 40-45 L [facility] Oxygen [Partial pressure] in Venous blood 15 mmHg [facility] Base excess standard in Venous blood by calculation 3 mmol/L [facility] Oxygen saturation Calculated from oxygen partial pressure in Venous blood 25 % 60-85 L [facility] Lactate [Moles/volume] in Venous blood 1.6 mmol/L 0.5-2.2 [facility] Bicarbonate [Moles/volume] in Venous blood 25 mmol/L [facility] ID Date Data Source [id number] 10/08/2019 01:09:[address] [facility] Name Value Range Interpretation Code Description Data Neva rce(s) Supporting Document(s) Sodium [Moles/volume] in Blood 125 mmol/L 136-145 L [facility] Potassium [Moles/volume] in Blood 3.9 mmol/L 3.4-5.1 [facility] Chloride [Moles/volume] in Blood 95 mmol/L 98-107 L [facility] Carbon dioxide, total [Moles/volume] in Blood 26 mmol/L 22-29 [facility] Calcium.ionized [Moles/volume] in Blood 1.11 mmol/L 1.13-1.32 [facility] Glucose [Mass/volume] in Blood 119 mg/dL 70-140 [facility] Urea nitrogen [Mass/volume] in Blood 20 mg/dL 8-23 [facility] Creatinine [Mass/volume] in Blood 0.8 mg/dL 0.70-1.20 [facility] Hematocrit [Volume Fraction] of Blood 28 % 41-53 [facility] Hemoglobin [Mass/volume] in Blood by calculation 9.5 g/dL 13.5-18.0 [facility] ID Date Data Source [id number] 09/25/2019 10:15:[address] [facility] Name Value Range Interpretation Code Description Data Neva rce(s) Supporting Document(s) Progress Note [facility] BOBMPp5fBnABIjXc14/VCAvkYXOlh2YxTMeqXLn8BWgxZNEpW9XsFUH7tQ8lTZK3YMqJFsIbLDanLgC7 lbm [file] rQu86M5tYOvq8FlUEYJ3zVVZEjU2Uaiv7/UfZ+vp home health/jhlW1adSf8iTBggV/v9KuFK8v0f7zSksyj++Wne [file] ICAgICAgICAgICAgICAgICAgICAgICAgICAgICAgIC AgICAgICAgICAgICAgICAgICAgICAgICAgICAgICAgICAgICAgICAgICAgICAgICAgICAgICAgICANCi AgICAgICAgICAgICAgICAgICAgICAgICAgICAgICAgICAgICAgICAgICAgICAgICAgICAgICAgICAgIC AgICAgICAgICAgICAgICAgICAgICAgICAgICAgICAg ICAgICAgICANCiAgICAgICAgICAgICAgICAgICAgICAgICAgICAgICAgICAgICAgICAgICAgICAgICAg ICAgICAgICAgICAgICAgICAgICAgICAgICAgICAgICAgICAgICAgICAgICAgICAgICANCiAgICAgICAg ICAgICAgICAgICAgICAgICAgICAgICAgICAgICAgIC AgICAgICAgICAgICAgICAgICAgICAgICAgICAgICAgICAgICAgICAgICAgICAgICAgICAgICAgICAgIC ANCiAgICAgICAgICAgICAgICAgICAgICAgICAgICAgICAgICAgICAgICAgICAgICAgICAgICAgICAgIC AgICAgICAgICAgICAgICAgICAgICAgICAgICAgICAg ICAgICAgICAgICANCiAgICAgICAgICAgICAgICAgICAgICAgICAgICAgICAgICAgICAgICAgICAgICAg ICAgICAgICAgICAgICAgICAgICAgICAgICAgICAgICAgICAgICAgICAgICAgICAgICAgICANCiAgICAg ICAgICAgICAgICAgICAgICAgICAgICAgICAgICAgIC AgICAgICAgICAgICAgICAgICAgICAgICAgICAgICAgICAgICAgICAgICAgICAgICAgICAgICAgICAgIC AgICANCiAgICAgICAgICAgICAgICAgICAgICAgICAgICAgICAgICAgICAgICAgICAgICAgICAgICAgIC AgICAgICAgICAgICAgICAgICAgICAgICAgICAgICAg ICAgICAgICAgICAgICANCiAgICAgICAgICAgICAgICAgICAgICAgICAgICAgICAgICAgICAgICAgICAg ICAgICAgICAgICAgICAgICAgICAgICAgICAgICAgICAgICAgICAgICAgICAgICAgICAgICAgICANCiAg ICAgICAgICAgICAgICAgICAgICAgICAgICAgICAgIC AgICAgICAgICAgICAgICAgICAgICAgICAgICAgICAgICAgICAgICAgICAgICAgICAgICAgICAgICAgIC AgICAgICANCjw/oRQfN9hfmUYyokT0E1spHv6BUp0ZOA0ui2TyZWHvPTphoeNdHjbNDqMxCURoJhkLRu j9IGrdHF7YtOCaS8EuU5LtCRfaBQ6DQTBnFBAccEMj NDWvIQBeUeE6XSIgSQtxLL2OtYReENkjPDHoNENkGMQeVDJbNBIoXRMOYSOnBKUpXbPxMRQvDPCeACYf RENCPXZ5UQYvRfSyOTglXN1Qt6PrwYF6UJe+Id6QZA3jq1GvVHjwLNNtZK9zbx0EKZdCUpVyV5NvedM9 LZZ4AUZaLi5VHGYsKQFsnSRcAaQwANBZOpFeP3HezB 45JDOWVt3+CEcwcjBhIxzRZnG8ZYBzi9WpHGl5OQ4UYJLaYZz3uKYmMOWkI8Txm3SqFl90FAYvRkhhMU ZpMZlvwRAMYTVlEEUszBqbRvHpFXUiHDBpQZ1wVAN5YXVzUdDwLEDSOO3GESIfRKFydVHxDBFaTOWIWD 7CUExjAVS1FEVqubXibLOgAIxqXR0VHFTqohEiPdJy MCBSDQo+Tg2PSG0vx6NcZNs9UFClw0CeJKy3JB3QDKBgDYjoMTFxIR5kt8IjT0U6RcG0sXWkA3xqtxre W3QsgpMmpuYfTRIzZHLjLZ7BHI0DLO4QCLDfSMctSQ7HJGK1FUx2KkT7YftzIMIvFJQ2Kz0dFYhkBK2E KSc1Q9FhV1XWDMTpZRBDHQGihQK0QFTULf8LN7PEHm rHDQZMBf6OHrDpP0DJB4uZJ31XPA0QLIW+PiANCj4+DTzkhyCnVckPQiP1RDThw8PsVWg3OU3RJGPnFY roGA5PEOKqdD9tMHukTT9AGmSxJePmNGWPJaGlJ16sbQLuVAf6C0TzDvYaTKDxNdedJZMxMWenImTfTI MgWyBdDQogID4+ID4+ABhqQZ3WKBjvwgNfUMQwOw3M DLNxXGItEQ5wZRCgKLKiD6A9zUdbSLPDJnNkE3wogdvgBQ5wGSZkH722kPplukIsXGK8KAKzIj1NTGGy QQJ3CZMbeHPfNrAjGLPZNWkjLW7XdAAlTXU6aR9pUBdpOCJkMJFaG1zUAnUeiMdlVH44oCidqdUapHVx DQo+Ob2IIC2bz5JoBTf2afBkRKfhYBD6LAcgXOKeGX CgNMVtCUA4BQW1GXZPHrGbSXUyKXKcBPgfTYZtTXHsrz6UPITnKVC3CKk7DwZlUGSlAPJlQQozIMWbNF HgKaukAKXnRNRpNX9CPkYiFBOiUVEeGQfeECIbMXWvem3JFXWgALTmNkXuQPOkYWYaXEOwSJtfGYTqWQ ChDTOcVWFtQFIhQH5PHiWuKFBdWZC6TOCkIEJpVDCo nh6NPHKzJJBoAnj3MIWrYTDyMILaLAymJRIeAKZ5GPE8GTCxCRUhND2FIxXoLIOtGEMtTobvXDAnUUEn kz6FEVRzXIXsIWV8QpMtPSEaVCYnWCvxQLYqMVW5EoJoCLBhLMIuGT4NLjJwMGUuGFZ1MxBxRJAcBCEt mg6BHENxUCYhOkpeEBDpXMMlBPHfCMzlFNNgHVC6WM NwQXKyNGYvVH4GFfUoLZNrRfK3JlMdTRFsFMMzta1RESNsLNKpLcG3SeClZTBeURLnLVnkQPGoITD1Zz WpCDPnECPbEE5ZFmMfSXMcHdH5UvChFEEbXQZgec0KOMFkECGeETSiBnOtGNAfHVSqJUpyCFLgXQP4Hd OyYZQhTYJlFN6WDbWlGCUaGoX9QFLhKTQyDFTfyp3Q BHWoKVRnMys8DBDwMYNiUCDkYZtcGRZmTAG0QRS2EQOzZCChLX5PLySlAGKiUmygFQPzFGSrXKVpko8F ILAwSCSvFAD4PWVrCZCeBZElJPnlHYSbARH3ZVMgIGTuYZQaZH8MEeNeRFYqRqyxDDadCAYwRTDbsi2Z YGYoSBPtKNF6YXBtGWZxFAWnOLevJOFxDRR2EwC8NV DdZLSlOZ4KHuXiIEPcYDS0JYeeKIXkPAGmbk0DHRQoDUS9VKp5LgZaSNMwFVWgPKibVOZdCWTrOFV2TZ PzPYMbSB8NNlKgPBUoDJOnMVAgNMZaKXVmky7MQXTqDCD8MzklAYKbLOOnZGClFBmlSMOaHWExTOzxRO UdSPJrAU9XAuWsTMOlERAhGMvyZMFlZBAdtd9GlTOl uWclye4CMBkHSx2ZdMbyCWV5DDzjHx3vcTAeLoGjFBSPHz8ZsdGlTWEaIDFWJYxeLYFaBXKpYIPgMYog [id number]== ID Date Data Source [id number] 09/22/2019 11:00:[address] [facility] Name Value Range Interpretation Code Description Data Neva e(s) Supporting Document(s) Albumin [Mass/volume] in Serum or Plasma by Bromocresol green (BCG) dye binding method 4.2 g/dL 3.5[facility]5.2 [facility] Bil[facility].total [Mass/volume] in Serum or Plasma 0.5 mg/dL <1.2 [facility] Calcium [Mass/volume] in Serum or Plasma 9.0 mg/dL 8.8-10.2 [facility] Chloride [Moles/volume] in Serum or Plasma 89 mmol/L 98-107 L [facility] Creatinine [Mass/volume] in Serum or Plasma 0.72 mg/dL 0.70-1.20 [facility] Glucose [Mass/volume] in Serum or Plasma 118 mg/dL 70-140 [facility] Alkaline phosphatase [Enzymatic activity/volume] in Serum or Plasma 102 U/L 40-129 [facility] Potassium [Moles/volume] in Serum or Plasma 4.1 mmol/L 3.4-5.1 [facility] Protein [Mass/volume] in Serum or Plasma 6.5 g/dL 6.4-8.3 [facility] Sodium [Moles/volume] in Serum or Plasma 125 mmol/L 136-145 L [facility] Aspartate aminotransferase [Enzymatic activity/volume] in Serum or Plasma 17 U/L <40 [facility] Urea nitrogen [Mass/volume] in Serum or Plasma 14 mg/dL 8-23 [facility] Osmolality of Serum or Plasma by calculation 262 mosm/kg 275-300 L [facility] Creatinine/Urea nitrogen [Mass Ratio] in Serum or Plasma 19 [facility] Bicarbonate [Moles/volume] in Serum 26 mmol/L 22-29 [facility] Alanine aminotransferase [Enzymatic activity/volume] in Seru m or Plasma 10 U/L <41 [facility] Anion gap 3 in Serum or Plasma 10 mmol/L 8-15 [facility] Albumin/Globulin [Mass Ratio] in Serum or Plasma 1.8 [facility] Glomerular filtration rate/1.73 sq M pre dicted among non-blacks [Volume Rate/Area] in Serum or Plasma by Creatinine-based formula (MDRD) >6 0 [facility] Glomerular filtration rate/1.73 sq M pre dicted among blacks [Volume Rate/Area] in Serum or Plasma by Creatinine-based formula (MDRD) >60 [facility] ID Date Data Source [id number] 09/22/2019 11:00:[address] [facility] Name Value Range Interpretation Code Description Data Neva rce(s) Supporting Document(s) Thyrotropin [Units/volume] in Serum or Plasma 7.740 u[IU]/mL 0.270-4. 200 [facility] ID Date Data Source [id number] 09/22/2019 11:02:[address] [facility] Name Value Range Interpretation Code Description Data Neva rce(s) Supporting Document(s) Leukocytes [#/volume] in Blood by Automated count 7.8 10*3/uL 4-10 [facility] Erythrocytes [#/volume] in Blood by Automated count 4.24 10*6/uL 4.6- 6.1 L [facility] Hemoglobin [Mass/volume] in Blood 13.1 g/dL 13.5-18 [facility] Hematocrit [Volume Fraction] of Blood by Automated count 38.0 % 4 1-53 [facility] Erythrocyte mean corpuscular volume [Entitic volume] by Auto mated count 89.7 fL 80-96 [facility] Erythrocyte mean corpuscular hemoglobin [Entitic mass] by Automated count 31.0 pg 27-33 [facility] Erythrocyte mean corpuscular hemoglobin concentration [Mass/volume] by Automated count 34.5 g/dL 32.0-36.0 [facility] E[facility]th[facility] distribution width [Ratio] by Automated count 16.2 % 11.5-14.5 H [facility] Platelets [#/volume] in Blood by Automated count 215 10*3/uL 150-400 [facility] Differential cell count method - Blood [facility] Neutrophils/100 leukocytes in Blood by Automated count 76 % [facility] Lymphocytes/100 leukocytes in Blood by Automated count 9 % [facility] Monocytes/100 leukocytes in Blood by Automated count 10 % [facility] Eosinophils/100 leukocytes in Blood by Automated count 4 % [facility] Basophils/100 leukocytes in Blood by Automated count 1 % [facility] Neutrophils [#/volume] in Blood by Automated count 5.95 10*3/uL 1.8-7 .0 [facility] Lymphocytes [#/volume] in Blood by Automated count 0.71 10*3/uL 1.2-4 .0 L [facility] Monocytes [#/volume] in Blood by Automated count 0.74 10*3/uL 0-0.8 [facility] Eosinophils [#/volume] in Blood by Automated count 0.32 10*3/uL 0-0.5 [facility] Basophils [#/volume] in Blood by Automated count 0.08 10*3/uL 0-0.2 [facility] Nucleated erythrocytes/100 leukocytes [Ratio] in Blood by Automated count 0 /100{WBCs} 0-0 [facility] ID Date Data Source [id number] 09/22/2019 12:56:[address] [facility] Name Value Range Interpretation Code Description Data Neva rce(s) Supporting Document(s) Thyroxine (T4) free [Mass/volume] in Serum or Plasma 1.35 ng/dL 0.93- 1.70 [facility] ID Date Data Source [id number] 09/22/2019 03:39:[address] [facility] Name Value Range Interpretation Code Description Data Neva rce(s) Supporting Document(s) Triiodothyronine (T3) [Mass/volume] in Serum or Plasma 75.70 ng/ dL 80.00-200.00 [facility] ID Date Data Source [id number] 09/14/2019 02:13:[address] [facility] CT THORAX WITH CONTRAST [id number] RESUL TInterpreted by:Prabhjot Nguyen, MDCT thorax.INDICATION: Adenocarcinoma [...] pull-through. There is dilatation of the residual [place] upper thoracic esophagus.There are atherosclerotic changes in [...] rce(s) Supporting Document(s) ID Date Data Source [id number] 09/13/2019 04:34:[address] [facility] CT ABDOMEN PELVIS WITH CONTRAST [id number] RESULTInterpreted by:Teofilo Shelton MDINDICATION: 84-year-old male [...] (finding) completed Current non-drinker of alcohol (finding) [facility] Tobacco use and exposure 10/23/2020 12:00:00 AM EST Never used co mpleted Never used [facility] Cigarette pack-years 10/23/2020 12:00:[address] [facility] Cigarettes smoked current (pack per day) - Reported 10/23/19 21 12:00:00 AM EST UNK [facility] Smoking 10/23/2020 12:00:00 AM EST Former smoker completed Former smoker [facility] Alcohol intake 09/27/2020 12:00:00 AM EST Current non-d judit of alcohol (finding) completed Current non-drinker of alcohol (finding) [facility] Alcohol intake 09/03/2020 12:00:00 AM EST Current non-d judit of alcohol (finding) completed Current non-drinker of alcohol (finding) [facility] Alcohol intake 08/13/2020 12:00:00 AM EDT Current non-d judit of alcohol (finding) completed Current non-drinker of alcohol (finding) [facility] Smoking 07/23/2020 12:00:00 AM EDT Patient is a former smoker completed Patient is a former smoker [facility] ([facility]) Alcohol intake 07/19/2020 12:00:00 AM EDT Current non-d judit of alcohol (finding) completed Current non-drinker of alcohol (finding) [facility] Alcohol intake 06/21/2020 12:00:00 AM EDT Current non-d judit of alcohol (finding) completed Current non-drinker of alcohol (finding) [facility] Smoking 06/11/2020 12:00:00 AM EDT Patient is a former smoker completed Patient is a former smoker [facility] ([facility], ) Smoking 06/05/2020 12:00:00 AM EDT Never Smoked A Pipe complet ed Never Smoked A Pipe [facility] ([facility]) Alcohol intake 05/31/2020 12:00:00 AM EDT Current non-d judit of alcohol (finding) completed Current non-drinker of alcohol (finding) [facility] Alcohol intake 05/10/2020 12:00:00 AM EDT Current non-d judit of alcohol (finding) completed Current non-drinker of alcohol (finding) [facility] Cigarette pack-years 05/10/2020 12:00:00 AM EDT UNK completed [facility] Cigarettes smoked current (pack per day) - Reported 05/10/20 12:00:00 AM EDT UNK completed [facility] Smoking 05/10/2020 12:00:00 AM EDT Former smoker completed Former smoker [facility] Alcohol intake 04/19/2020 12:00:00 AM EDT Current non-d judit of alcohol (finding) completed Current non-drinker of alcohol (finding) [facility] Cigarette pack-years 04/19/2020 12:00:[address] [facility] Cigarettes smoked current (pack per day) - Reported 04/19/20 12:00:00 AM EDT UNK completed [facility] Smoking 04/19/2020 12:00:00 AM EDT Former smoker completed Former smoker [facility] Alcohol intake 03/29/2020 12:00:00 AM EDT Current non-d judit of alcohol (finding) completed Current non-drinker of alcohol (finding) [facility] Cigarette pack-years 03/29/2020 12:00:00 AM EDT UNK completed [facility] Cigarettes smoked current (pack per day) - Reported 03/29/20 12:00:00 AM EDT UNK completed [facility] Smoking 03/29/2020 12:00:00 AM EDT Former smoker completed Former smoker [facility] Alcohol intake 03/08/2020 12:00:00 AM EDT Current non-d judit of alcohol (finding) completed Current non-drinker of alcohol (finding) [facility] Cigarette pack-years 03/08/2020 12:00:00 AM EDT UNK completed [facility] Cigarettes smoked current (pack per day) - Reported 03/08/20 12:00:00 AM EDT UNK completed [facility] Smoking 03/08/2020 12:00:00 AM EDT Former smoker completed Former smoker [facility] Alcohol intake 02/14/2020 12:00:00 AM EDT Current non-d judit of alcohol (finding) completed Current non-drinker of alcohol (finding) [facility] Cigarette pack-years 02/14/2020 12:00:[address] [facility] Cigarettes smoked current (pack per day) - Reported 02/14/20 12:00:00 AM EDT UNK completed [facility] Smoking 02/14/2020 12:00:00 AM EDT Former smoker completed Former smoker [facility] Alcohol intake 02/03/2020 12:00:00 AM EDT Current non-d judit of alcohol (finding) completed Current non-drinker of alcohol (finding) [facility] Cigarette pack-years 02/03/2020 12:00:00 AM EDT UNK completed [facility] Cigarettes smoked current (pack per day) - Reported 02/03/20 12:00:00 AM EDT UNK completed [facility] Smoking 02/03/2020 12:00:00 AM EDT Former smoker completed Former smoker [facility] Alcohol intake 01/13/2020 12:00:00 AM EDT Current non-d judit of alcohol (finding) completed Current non-drinker of alcohol (finding) [facility] Cigarette pack-years 01/13/2020 12:00:00 AM EDT UNK completed [facility] Cigarettes smoked current (pack per day) - Reported 01/13/20 12:00:00 AM EDT UNK completed [facility] Smoking 01/13/2020 12:00:00 AM EDT Former smoker completed Former smoker [facility] Alcohol intake 12/18/2019 12:00:00 AM EST Current non-d judit of alcohol (finding) completed Current non-drinker of alcohol (finding) [facility] Cigarette pack-years 12/18/2019 12:00:00 AM EST UNK completed [facility] Cigarettes smoked current (pack per day) - Reported 12/18/19 12:00:00 AM EST UNK completed [facility] Smoking 12/18/2019 12:00:00 AM EST Former smoker completed Former smoker [facility] Alcohol intake 11/17/2019 12:00:00 AM EST Current non-d judit of alcohol (finding) completed Current non-drinker of alcohol (finding) [facility] Cigarette pack-years 11/17/2019 12:00:00 AM EST UNK completed [facility] Cigarettes smoked current (pack per day) - Reported 11/17/19 12:00:00 AM EST UNK completed [facility] Smoking 11/17/2019 12:00:00 AM EST Former smoker completed Former smoker [facility] Alcohol intake 10/27/2019 12:00:00 AM EST Current non-d judit of alcohol (finding) completed Current non-drinker of alcohol (finding) [facility] Cigarette pack-years 10/27/2019 12:00:00 AM EST UNK completed [facility] Cigarettes smoked current (pack per day) - Reported 10/27/19 12:00:00 AM EST UNK completed [facility] Smoking 10/27/2019 12:00:00 AM EST Former smoker completed Former smoker [facility] Alcohol intake 10/20/2019 12:00:00 AM EST Current non-d judit of alcohol (finding) completed Current non-drinker of alcohol (finding) [facility] Cigarette pack-years 10/20/2019 12:00:00 AM EST UNK completed [facility] Cigarettes smoked current (pack per day) - Reported 10/20/19 12:00:00 AM EST UNK completed [facility] Smoking 10/20/2019 12:00:00 AM EST Former smoker completed Former smoker [facility] Alcohol intake 10/08/2019 12:00:00 AM EST Current non-d judit of alcohol (finding) completed Current non-drinker of alcohol (finding) [facility] Cigarette pack-years 10/08/2019 12:00:[address] [facility] Cigarettes smoked current (pack per day) - Reported 10/08/20 12:00:00 AM EST UNK completed [facility] Smoking 10/08/2019 12:00:00 AM EST Former smoker completed Former smoker [facility] Alcohol intake 09/22/2019 12:00:00 AM EST Current non-d judit of alcohol (finding) completed Current non-drinker of alcohol (finding) [facility] Cigarette pack-years 09/22/2019 12:00:[address] [facility] Cigarettes smoked current (pack per day) - Reported 09/22/20 12:00:00 AM EST UNK completed [facility] Smoking 09/22/2019 12:00:00 AM EST Former smoker completed Former smoker [facility] Vital Signs ID Date Data Source UNK Name Value Range Interpretation Code Description Data Source(s) Body surface area Derived from formula 1.80 m2 1.80 m2 [facility] ([facility]) Body mass index (BMI) [Ratio] 22.5 kg/m2 22.5 k g/m2 [facility] ([facility]) Body height 68 [in_i] 68 [in_i] [facility] ([facility]) 5'8" Body weight 67.133 kg 67.133 kg [facility] ([facility]) Body weight 148.00 [lb_av] 148.00 [lb_av] [facility] ([facility]) Oxygen saturation in Arterial blood by Pulse oximetry 99 % 99 % [facility] ([facility]) Body temperature 98.7 [degF] 98.7 [degF] [facility] ([facility]) Heart rate 60 /min 60 /min [facility] ([facility]) Diastolic blood pressure 72 mm[Hg] 72 mm[Hg] [facility] ([facility]) Systolic blood pressure 136 mm[Hg] 136 [facility]] [facility] Body surface area Derived from formula 1.68 m2 1.68 m2 [place] ([facility]) Body mass index (BMI) [Ratio] 21.7 kg/m2 21.7 k g/m2 [place] ([facility]) Body weight 133.25 [lb_av] 133.25 [lb_av] [facility] ([facility]) Body height 65.75 [in_i] 65.75 [in_i] [place] ([facility]) Respiratory rate 20 /min 20 /min [place] ([facility]) Heart rate 80 /min 80 /min [place] ([facility]) Diastolic blood pressure 74 mm[Hg] 74 mm[Hg] [place] ([facility]) Systolic blood pressure 158 mm[Hg] 158 mm[Hg] [facility] ([facility]) Body surface area Derived from formula 1.68 m2 1.68 m2 [place] ([facility]) Body mass index (BMI) [Ratio] 21.7 kg/m2 21.7 k g/m2 [place] ([facility]) Body weight 133.25 [lb_av] 133.25 [lb_av] [facility] ([facility]) Body height 65.75 [in_i] 65.75 [in_i] [place] ([facility]) Respiratory rate 20 /min 20 /min [place] ([facility]) Heart rate 80 /min 80 /min [place] ([facility]) Diastolic blood pressure 74 mm[Hg] 74 mm[Hg] [place] ([facility]) Systolic blood pressure 158 mm[Hg] 158 mm[Hg] [facility] ([facility]) Body weight 60.442 kg [facility] [place] body weight 154 [lb_av] 154 [lb_av] [facility] ([facility], ) Body mass index (BMI) [Ratio] 20.3 kg/m2 20.3 k g[facility]2 [facility] Body weight 133.25 [lb_av] 133.25 [lb_av] [facility] ([facility], ) Body height 68 [in_i] 68 [in_i] [facility] 5'8" Diastolic blood pressure 72 mm[Hg] 72 mm[Hg] [facility] Systolic blood pressure 132 mm[Hg] 132 mm[Hg] [facility] Oxygen saturation in Arterial blood by Pulse oximetry 99 % 99 % [facility] Body mass index (BMI) [Ratio] 20.8 kg/m2 20.8 k g/m2 [facility] ([facility]) Body weight 133.00 [lb_av] 133.00 [lb_av] [facility] ([facility]) Body height 67 [in_i] 67 [in_i] [facility] 5'7" Heart rate 84 /min 84 /min [facility] Diastolic blood pressure 70 mm[Hg] 70 mm[Hg] [facility] ([facility]) Systolic blood pressure 118 mm[Hg] 118 mm[Hg] [facility] Body surface area Derived from formula 1.69 m2 1.69 m2 [place] ([facility]) Body mass index (BMI) [Ratio] 22.0 kg/m2 22.0 k g/m2 [place] ([facility]) Body weight 135 [lb_av] 135 [lb_av] [place] ([facility]) Body height 65.75 [in_i] 65.75 [in_i] [place] ([facility]) Respiratory rate 24 /min 24 /min [place] ([facility]) Heart rate 74 /min 74 /min [place] ([facility]) Diastolic blood pressure 60 mm[Hg] 60 mm[Hg] [place] ([facility]) Systolic blood pressure 136 mm[Hg] 136 mm[Hg] [facility] Body weight 60.782 kg 60.782 kg [facility] ([facility], ) [place] body weight 154 [lb_av] 154 [lb_av] [facility] ([facility], ) Body mass index (BMI) [Ratio] 20.4 kg/m2 20.4 k g/m2 [facility] ([facility], ) Body weight 134.00 [lb_av] 134.00 [lb_av] [facility] ([facility]) Body height 68 [in_i] 68 [in_i] [facility] ([facility]) 5'8" Body temperature 97.9 [degF] 97.9 [degF] [facility] ([facility]) Oxygen saturation in Arterial blood by Pulse oximetry 100 % 100 % [facility] ([facility]) Heart rate 102 /min 102 /min [facility] ([facility]) Diastolic blood pressure 80 mm[Hg] 80 mm[Hg] [facility] ([facility]) Systolic blood pressure 130 mm[Hg] 130 mm[Hg] [facility] ([facility]) Body weight 69.401 kg [facility].[address] [facility] Body weight 153.00 [lb_av] 153.00 [lb_av] [facility] ([facility]) Respiratory rate 16 /min 16 /min [facility] ( [facility]) Body temperature 97.2 [degF] 97.2 [degF] [facility] ([facility]) Oxygen saturation in Arterial blood by Pulse oximetry 97 % 97 % [facility] ([facility]) Respiratory rate 18 /min 18 /min [facility] ( [facility]) Heart rate 82 /min 82 /min [facility] ([facility]) Diastolic blood pressure 92 mm[Hg] 92 mm[Hg] [facility] ([facility]) Systolic blood pressure 186 mm[Hg] 186 mm[Hg] [facility] ([facility]) Systolic blood pressure 118 mm[Hg] 118 mm[Hg] [facility] ([facility]) Body weight 60.329 kg 60.329 kg [facility] ([facility]) Body mass index (BMI) [Ratio] 20.2 kg/m2 20.2 k g/m2 [facility] ([facility]) Body weight 133.00 [lb_av] 133.00 [lb_av] [facility] ([facility]) Body height 68 [in_i] 68 [in_i] [facility] ([facility]) 5'8" Body temperature 97.9 [degF] 97.9 [degF] [facility] Oxygen saturation in Arterial blood by Pulse oximetry 92 % 92 % [facility] ([facility], ) Heart rate 71 /min 71 /min [facility] ([facility], ) Diastolic blood pressure 68 mm[Hg] 68 mm[Hg] [facility] Body surface area 1.73 m2 1.73 m2 [facility] ([facility]) Body mass index (BMI) [Ratio] 20.5 kg/m2 20.5 k g/m2 [facility] ([facility]) Body height 68 [in_i] 68 [in_i] [facility] ([facility]) 5'8" Body weight 61.236 kg 61.236 kg [facility] ([facility]) Body weight 135.00 [lb_av] 135.00 [lb_av] [facility] ([facility]) Oxygen saturation in Arterial blood by Pulse oximetry 96 % 96 % [facility] Respiratory rate 18 /min 18 /min [facility] ( [facility]) Heart rate 75 /min 75 /min [facility] ([facility]) Diastolic blood pressure 81 mm[Hg] 81 mm[Hg] [facility] ([facility]) Systolic blood pressure 153 mm[Hg] 153 mm[Hg] M [facility] ([facility]) Body weight 62.597 kg 62.597 kg [facility] ([facility], ) Body mass index (BMI) [Ratio] 21.0 kg/m2 21.0 k g/m2 [facility] ([facility], ) Body weight 138.00 [lb_av] 138.00 [lb_av] [facility] ([facility], ) Body height 68 [in_i] 68 [in_i] [facility] ([facility], ) 5'8" Body temperature 97.5 [degF] 97.5 [degF] [facility] ([facility], ) Oxygen saturation in Arterial blood by Pulse oximetry 99 % 99 % [facility] ([facility], ) Heart rate 78 /min 78 /[facility], [facility] Diastolic blood pressure 70 mm[Hg] 70 mm[Hg] [facility] ([facility], ) Systolic blood pressure 138 mm[Hg] 138 mm[Hg] [facility] Body height 65.75 [in_i] 65.75 [in_i] [place] ([facility]) Heart rate 71 /min 71 /min [place] ([facility]) Diastolic blood pressure 76 mm[Hg] 76 mm[Hg] [place] ([facility]) Systolic blood pressure 141 mm[Hg] 141 mm[Hg] [facility] ([facility]) Body surface area Derived from formula 1.66 m2 1.66 m2 [place] ([facility]) Body mass index (BMI) [Ratio] 21.0 kg/m2 21.0 k g/m2 [place] ([facility]) Body weight 129 [lb_av] 129 [lb_av] [place] ([facility]) Body height 65.75 [in_i] 65.75 [in_i] [place] ([facility]) Respiratory rate 24 /min 24 /min [place] ([facility]) Heart rate 72 /min 72 /min [place] ([facility]) Diastolic blood pressure 70 mm[Hg] 70 mm[Hg] [place] ([facility]) Systolic blood pressure 152 mm[Hg] 152 mm[Hg] [facility] ([employer] [facility]) Body surface area Derived from formula 1.64 m2 1.64 m2 [place] ([facility]) Body mass index (BMI) [Ratio] 20.7 kg/m2 20.7 k g/m2 [place] ([facility]) Body weight 127 [lb_av] 127 [lb_av] [place] ([facility]) Body height 65.75 [in_i] 65.75 [in_i] [place] ([facility]) Respiratory rate 20 /min 20 /min [place] ([facility]) Heart rate 80 /min 80 /min [place] ([facility]) Diastolic blood pressure 68 mm[Hg] 68 mm[Hg] [place] ([facility]) Systolic blood pressure 126 mm[Hg] 126 mm[Hg] [facility] ([facility]) ID Date Data Source [id number] 10/28/2020 12:00:33 PM EST [facility] Name Value Range Interpretation Code Description Data Source(s) WEIGHT RECORDED 129 lb 129 lb [facility] ID Date Data Source [id number] 09/28/2020 04:45:54 PM EST [facility] Name Value Range Interpretation Code Description Data Source(s) WEIGHT RECORDED 133 lb 133 lb [facility] ID Date Data Source [id number] 09/06/2020 09:06:28 AM EST [facility] Name Value Range Interpretation Code Description Data Source(s) WEIGHT RECORDED 130.2 lb 130.2 lb [facility] ID Date Data Source [id number] 08/17/2020 09:06:03 AM EDT [facility] Name Value Range Interpretation Code Description Data Source(s) WEIGHT RECORDED 130 lb 130 lb [facility] ID Date Data Source [id number] 07/19/2020 03:58:41 PM EDT [facility] Name Value Range Interpretation Code Description Data Source(s) WEIGHT RECORDED 132 lb 132 lb [facility] ID Date Data Source [id number] 06/24/2020 12:09:13 PM EDT [facility] Name Value Range Interpretation Code Description Data Source(s) WEIGHT RECORDED 131 lb 131 lb [facility] ID Date Data Source [id number] 06/01/2020 08:48:54 AM EDT [facility] Name Value Range Interpretation Code Description Data Source(s) WEIGHT RECORDED 136 lb 136 lb [facility] ID Date Data Source [id number] 06/05/2020 09:10:31 AM EDT [facility] Name Value Range Interpretation Code Description Data Source(s) WEIGHT RECORDED 133.00 pounds 133.00 pounds [facility] Height 69 Inches 069 Inches [facility] ID Date Data Source [id number] 05/11/2020 08:39:46 AM EDT [facility] Name Value Range Interpretation Code Description Data Source(s) WEIGHT RECORDED 133 lb 133 lb [facility] ID Date Data Source [id number] 04/19/2020 03:47:51 PM EDT [facility] Name Value Range Interpretation Code Description Data Source(s) WEIGHT RECORDED 134 lb 134 lb [facility] ID Date Data Source [id number] 03/30/2020 08:53:55 AM EDT [facility] Name Value Range Interpretation Code Description Data Source(s) WEIGHT RECORDED 134.8 lb 134.8 lb [facility] ID Date Data Source [id number] 03/09/2020 10:01:32 AM EDT [facility] Name Value Range Interpretation Code Description Data Source(s) WEIGHT RECORDED 136 lb 136 lb [facility] ID Date Data Source [id number] 02/15/2020 12:29:18 PM EDT [facility] Name Value Range Interpretation Code Description Data Source(s) WEIGHT RECORDED 137 lb 137 lb [facility] ID Date Data Source [id number] 02/03/2020 12:49:30 PM EDT [facility] Name Value Range Interpretation Code Description Data Source(s) WEIGHT RECORDED 136 lb 136 lb [facility] ID Date Data Source [id number] 01/13/2020 11:13:28 AM EDT [facility] Name Value Range Interpretation Code Description Data Source(s) WEIGHT RECORDED 133 lb 133 lb [facility] ID Date Data Source [id number] 12/18/2019 12:08:23 PM EST [facility] Name Value Range Interpretation Code Description Data Source(s) WEIGHT RECORDED 131 lb 131 lb [facility] ID Date Data Source [id number] 11/18/2019 12:09:36 PM EST [facility] Name Value Range Interpretation Code Description Data Source(s) WEIGHT RECORDED 132 lb 132 lb [facility] ID Date Data Source [id number] 10/28/2019 09:20:18 AM [facility] Name Value Range Interpretation Code Description Data Source(s) WEIGHT RECORDED 127 lb 127 lb [facility] ID Date Data Source [id number] 10/21/2019 10:35:13 AM EST [facility] Name Value Range Interpretation Code Description Data Source(s) WEIGHT RECORDED 126 lb 126 lb [facility] ID Date Data Source [id number] 10/24/2019 10:02:41 AM [facility] Name Value Range Interpretation Code Description Data Source(s) WEIGHT RECORDED 124.80 pounds 124.80 pounds [facility] Height 68 Inches 068 Inches [facility] ID Date Data Source [id number] 10/20/2019 03:02:[address] [facility] Name Value Range Interpretation Code Description Data Source(s) WEIGHT RECORDED 120 lb 120 lb [facility] Body height Measured 69 in 69 in [facility] ID Date Data Source [id number] 09/25/2019 10:42:[address] [facility] Name Value Range Interpretation Code Description Data Source(s) WEIGHT RECORDED 132 lb 132 lb [facility] Patient Treatment Plan of Care Planned Activity Planned Date Details Description Data Source (s) Levetiracetam 500 MG Oral Tablet 07/04/2020 12:00:00 AM [facility]) Famotidine 40 MG Oral Tablet 06/19/2020 12:00:00 AM [facility]) Sodium Chloride 1000 MG Oral Tablet 04/02/2020 12:00:00 AM [facility]) Flonase Allergy Relief 50 MCG/ACT Nasal Suspension 03/07/2020 12 :00:00 AM [facility]) Flonase Allergy Relief 50 MCG/ACT Nasal Suspension 02/29/2020 12 :00:00 AM [facility]) gabapentin 100 MG Oral Capsule 02/10/2020 12:00:00 AM [facility]) Flonase Allergy Relief 50 MCG/ACT Nasal Suspension 01/20/2020 12 :00:00 AM [facility]) Loratadine 10 MG Oral Tablet 01/20/2020 12:00:00 AM [facility]) Levetiracetam 500 MG Oral Tablet 12/20/2019 12:00:00 AM [facility]) Finasteride 5 MG Oral Tablet 12/06/2019 12:00:00 AM [facility]) Sodium Chloride 1000 MG Oral Tablet 11/29/2019 12:00:00 AM [facility]) Tamsulosin hydrochloride 0.4 MG Oral Capsule [Flomax] 11/29/2019 12:00:00 AM [facility]) Sodium Chloride 1000 MG Oral Tablet 11/15/2019 12:00:00 AM [facility]) Levetiracetam 500 MG Oral Tablet 11/10/2019 12:00:00 AM [facility]) Sodium Chloride 1000 MG Oral Tablet 10/25/2019 12:00:00 AM [facility]) Oseltamivir 75 MG Oral Capsule [Tamiflu] 10/25/2019 12:00:00 AM [facility]) pantoprazole 40 MG Delayed Release Oral Tablet 10/14/2019 07:30:00 AM [facility] Levetiracetam 500 MG Oral Tablet 10/13/2019 12:00:00 AM [facility] Sodium Chloride 1000 MG Oral Tablet 10/13/2019 12:00:00 AM [facility] Ondansetron 4 MG Disintegrating Oral Tablet 10/10/2019 08:30:21 AM [facility] Sucralfate 1000 MG Oral Tablet 09/09/2019 12:00:00 AM [facility]) Loratadine 10 MG Oral Tablet 08/17/2019 12:00:00 AM [facility]) 200 ACTUAT Albuterol 0.09 MG/ACTUAT Metered Dose Inhal er [Ventolin] 08/01/2019 12:00:00 AM [facility] ([facility]) Tamsulosin hydrochloride 0.4 MG Oral Capsule [Flomax] 07/04/2019 12:00:00 AM [facility]) gabapentin 100 MG Oral Capsule 03/08/2019 12:00:00 AM [facility]) Ranitidine 150 MG Oral Tablet 02/08/2019 12:00:00 AM [facility] Finasteride 5 MG Oral Tablet 02/08/2019 12:00:00 AM [facility]) Flonase Allergy Relief 50MCG/ACT Nasal Suspension 11/17/2018 12: 00:00 AM [facility]) ALPHA LIPOIC ACID [facility]
--- NOTE | 2020-11-05 17:35 | REP ---
INDICATION: pre-op. COMPARISON: None TECHNIQUE: Portable FINDINGS: The technique utilized in obtaining the radiograph has magnified the cardiac silhouette and attenuated the interstitial markings. There is an asymmetric possibly spiculated nodular density seen all long the right mid lung field laterally. This measures approximately 3 cm. There is a possible right apical nodule measuring 2 cm. Fibrotic changes are suspected throughout the lung renee. There is a MediPort device in place the tip of which is in the superior vena cava. The heart is not enlarged. The osseous structures are within normal limits for the patient's age. IMPRESSION: 1. Abnormal lung field findings as described above. CT examination of the chest is recommended so as it can be compared to the prior CT examination of the chest of 12/27/2019. Malignancy cannot be ruled out. I have no history on this patient. 2. Chronic fibrotic changes are suspected. 3. Other findings as described above. <Electronically signed by Matt Wagner > 11/05/20 [id number]
[2020-11-05 18:18] LABS: HEMATOCRIT 36.5 % (42.0-52.0); HEMOGLOBIN 12.8 g/dl (13.5-17.5); MEAN CORPUSCULAR HEMOGLOBIN 31.6 pg (27.0-33.0); MEAN CORPUSCULAR HGB CONC 35.1 g/dl (32.0-36.5); MEAN CORPUSCULAR VOLUME 90.1 fl (80.0-96.0); PLATELET COUNT, AUTOMATED 216 10^3/uL (150-450); RED BLOOD COUNT 4.05 10^6/uL (4.30-6.10); WHITE BLOOD COUNT 8.1 10^3/uL (4.0-10.0)
--- NOTE | 2020-11-05 18:26 | REP ---
INDICATION: trauma. COMPARISON: None TECHNIQUE: AP pelvis and two views of the right hip FINDINGS: AP view of the pelvis shows moderate bilateral asymmetric hip joint space narrowing and degenerative changes seen involving the sacroiliac joints and imaged portion of the spine. The bones are demineralized. There is a fracture of the right acetabulum. This extends into the base of the superior pubic ramus. Two views of the right hip show degenerative changes. There is an acute fracture of the right acetabulum extending into the superior pubic ramus without dislocation, or subluxation. IMPRESSION: Right hip fracture and chronic changes as described above. <Electronically signed by Matt Wagner > 11/05/20 [id number]
[2020-11-05 18:33] LABS: BLOOD UREA NITROGEN 12 MG/DL (7-18); CALCIUM LEVEL 9.3 MG/DL (8.8-10.2); CARBON DIOXIDE LEVEL 29 MEQ/L (21-32); CHLORIDE LEVEL 92 MEQ/L (98-107); CREATININE FOR GFR 0.89 MG/DL (0.70-1.30); GLOMERULAR FILTRATION RATE > 60.0 (>35); GLUCOSE, FASTING 111 MG/DL (70-100); POTASSIUM SERUM 3.7 MEQ/L (3.5-5.1); SODIUM LEVEL 127 MEQ/L (136-145)
[2020-11-05 18:55] LABS: RSV AMPLIFICATION NEGATIVE (NEGATIVE)
[2020-11-05] MEDS ORDERED: MORPHINE 2 MG/ML 1ML VIAL (J2270) As Ordered ONE (22:48)
[2020-11-05 22:58] VITALS: BP 164/74
[2020-11-05] MEDS ORDERED: MORPHINE 2 MG/ML 1ML VIAL (J2270) IV ONE (23:00)
== END 2020-11-05 23:01 | disposition short-term general hospital (02) ==
LOC: M ED 15:57
DX: S32.401A Unspecified fracture of right acetabulum, initial encounter for closed fracture (principal); W10.8XXA Fall (on) (from) other stairs and steps, initial encounter; R91.1 Solitary pulmonary nodule; Z91.040 Latex allergy status; Y92.009 Unspecified place in unspecified non-institutional (private) residence as the place of occurrence of the external cause; Y93.9 Activity, unspecified; Y99.9 Unspecified external cause status
CPT/HCPCS: 71045; 73502; 80048; 85027; 87631; 96374; 96375; 96376; 99285; J2270; J2405

== ENCOUNTER → 2021-01-01 | Outpatient (REF) | payer MEDICARE | LOC: M LAB REF 17:02 | PROVIDERS: ATTEND Internal Medicine Pulmonary Disease | DX: J47.9 Bronchiectasis, uncomplicated (principal) ==

== ENCOUNTER 2021-01-31 18:12 | Inpatient (IN) | payer MEDICARE ==
[~2021-01-31] VITALS: Ht 172.7 cm; Wt 59.7 kg
[2021-01-31 20:20] VITALS: BP 178/80
[2021-01-31] MEDS ORDERED: diphenhydrAMINE 50MG/ML VIAL (J1200) IV ONE (21:30)
[2021-01-31 21:42] VITALS: BP 142/78
[2021-01-31 22:00] VITALS: O2SAT 99
[2021-01-31] MEDS: NS 1,000 ML IV SCH (22:11)
[2021-01-31] MEDS ORDERED: MAALOX 30 ML SUSP *UDC PO PRN (22:50)
[2021-01-31] MEDS ORDERED: MOM 30ML SUSPENSION UDC PO PRN (22:50)
[2021-01-31] MEDS ORDERED: ACETAMINOPHEN TAB 650MG DOSE (2X325MG) PO PRN (22:50)
--- NOTE | 2021-01-31 22:56 | HPEPDOC ---
[facility] Medical History & Physical Date of Admission Jan 31, 2021 Date of Service: Jan 31, 2021 Attending Physician: NEERAJ HENNESSY MD History and Physical CHIEF COMPLAINT: Swelling of the lips and tongue HISTORY OF PRESENT ILLNESS: Rommel is a pleasant 86yo male w/ notable PMHx of right lung ca (completed 2yrs of Keytruda), esophageal ca s/p resection sx w/ esophagogastric anastomosis, right hip fracture 11/05/20 w/ non-sx mgmt, COPD on home qhs 2L o2, and hypoNa, who was a direct transfer from [facility] on 01/31/21 for continued management of idiopathic angioedema. The patient awoke this morning and noticed around 9 AM that his lips were getting red. By Noon, both his upper and lower lips, tongue, and all began to swell. The swelling gradually progressed through the early afternoon until around 3 PM when the patient presented to the [facility] emergency department. At no point during the day. The patient experience any difficulty breathing. He also denied any fever, rash, or altered consciousness. All he had to eat or drink the entire day were 2 cups of black coffee and a raspberry turnover morning. He denies use of any new lotions, soaps, shampoos, detergents, and has remained relatively homebound over the past week. He did report that around 2:30 AM today, he woke up to go to the bathroom and encountered a large spider. He was able to gather the spider and kill it, but denied ever being bitten. Medications he took today were loratadine 10 mg, finasteride 5 mg, daily. Tamsulosin 0.4 mg, a sodium, chloride tablet, and used his home Anoro inhaler.. His only known allergy is to latex in the form of skin blisters. He has never experienced swelling like this before. In the [place] ED, a CT of the neck and soft tissues with contrast was performed, and he was subsequently administered 125 mg IV push of Solu-Medrol, 25 mg IV push of Benadryl, oral famotidine, and racemic epinephrine nebulizer treatment. The swelling seemed to improve soon after the medications were given. He was subsequently transferred to [facility] with the CT neck, report pending and for possible ENT evaluation should decompensation occur. Upon transfer evaluation in the PCU, the patient had no specific symptoms. He feels as though his swelling has improved considerably since prior to treatment at [place] and is resting comfortably with his typical nighttime supplemental oxygen via [place]. He was administered IV Benadryl and started on IV fluids. Upon questioning, patient was open to being intubated should he have recurrence of angioedema compromising his airway. As such, a new molst form was completed indicating DO NOT RESUSCITATE with a trial intubation. The new form was signed and placed in pt's chart. In addition, preliminary report returned on the [place]. CT of the neck showing a patent airway with unremarkable epiglottis and no prevertebral soft tissue swelling with no lymphadenopathy PAST MEDICAL HISTORY: Lung cancer, status post 2 years Keytruda q3wk; he completed the 2 years of treatment just 2 months ago in November 2020 Esophageal cancer 2007; s/p surgical resection with esophagogastric anastomoses that has required multiple EGD dilations (most recent May [address] 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 He is a former smoker, and quit in 1979. Prior to that he smoked for approximately 25 years. He currently drinks alcohol on average one beer every night. He denies any history of hospitalization for alcohol and oxygenation. He denies any current or former illicit or IV drug use FAMILY HISTORY: Father: ; Alzheimer's disease Mother: ; CVA Brother: Living; unspecified heart disease with recent pacemaker implantation Sisters (2): No significant medical hx Oldest son: ; lung cancer ALLERGIES: Please see below. REVIEW OF SYSTEMS: CONSTITUTIONAL: Denies fever, chills, night sweats. HEENT: Reports chronic dry mouth. Denies double vision, blurry vision, tinnitus, dysphagia, or odynophagia CARDIOVASCULAR: Reports some intermittent palpitations over the past week or so. Denies chest pain, chest pressure. RESPIRATORY: Denies shortness of breath, increased work of breathing, or pleuritic chest pain GASTROINTESTINAL: GENITOURINARY: Reports chronic slow urinary stream. SKIN: Denies rash, pruritus, bleeding MUSCULOSKELETAL: Reports some recent right-sided rib cage pain and lying right lateral recumbent NEUROLOGICAL: Denies any numbness or tingling of extremities or oral area her face HEMATOLOGIC: Denies easy bleeding or bruising. LYMPHATIC: Denies any lumps or bumps. HOME MEDICATIONS: Please see below. PHYSICAL EXAMINATION: VITAL SIGNS: See below. GENERAL APPEARANCE: Pleasant, elderly, male lying upright in bed. Thin habitus, somewhat frail. On supplemental oxygen. No acute distress. Alert and oriented 3. HEENT: Normocephalic. Noninjected, anicteric sclerae. PERRLA. No significant conjunctival pallor. MOUTH & ORAL CAVITY: Moderate swelling of upper lip with no significant erythema or induration. There is no significant glossitis. Both upper and lower dentures are in place. No significant fragile erythema or exudate. NECK: Supple with no lymphadenopathy appreciated. Trachea midline. No significant swelling. CHEST: No chest wall tenderness. There is a port present in the left upper chest. CARDIOVASCULAR: Tachycardic rate, regular rhythm. On monitor, patient is running sinus tachycardia. Normal S1, S2. No significant murmurs or rubs appreciated. LUNGS: On supplemental oxygen, 2L. some mild bibasilar rhonchi, otherwise no adventitious breath sounds appreciated. Speaking full sentences. Richter chest expansion. ABDOMEN: Soft. Mild suprapubic tenderness. No rigidity. Normoactive bowel sounds throughout. EXTREMITIES: Bilateral lower extremities free of edema. 2+ radial pulses bilater ally. NEUROLOGICAL: Alert and oriented 3. No focal deficits appreciated. No dysarthric speech. PSYCHIATRIC: Pleasant mood. Affect appears appropriate. LABORATORY DATA: Please see below. IMAGING: No imaging obtained here at [facility]. Preliminary report from [facility] for a CT soft tissue of the neck with contrast- . Airway patent. Degenerative changes cervical spine. No lymphadenopathy. No prevertebral soft tissue swelling. Epiglottis unremarkable. MICROBIOLOGY: Please see below. ASSESSMENT & PLAN: This is an 86yo male w/ h/o right lung CA s/p Keytruda tx, esophageal CA s/p esophagogastric anastomosis w/ repeat dilatations, rt hip fx w/ non-sx mgmt (Oct), GERD w/ gastritis, and hypoNa who is a direct transfer from [facility] after experiencing idiopathic angioedema with lip and tongue swelling and receiving racemic epinephrine, IV steroids, and IV Benadryl. Main reason for transfer was higher level of care with ENT services should decompensation occur. #Idiopathic angioedema -Patient administered IV Solu-Medrol, Benadryl, and nebulizer racemic epinephrine at [place] ED with considerable improvement -At no point did patient have any respiratory compromise -Preliminary report of CT of neck/soft tissues with contrast shows an unremarka ble epiglottis with a patent airway and no prevertebral soft tissue swelling. -Upon arrival to [facility], IV fluids initiated with no dose of IV Benadryl -Discussing history with patient and his , there is no identifiable trigger. He has never had such a reaction before. Only known allergy is skin blisters with latex. -Patient is agreeable to intubation should respiratory compromise occurred any point -Monitoring via telemetry, continuous pulse ox -Clear liquid diet for now #Sinus tachycardia -likely 2/2 dehydration due to decreased po intake during the day in the setting of angioedema, and possibly as a result of racemic epinephrine's effects on beta receptors -on telemetry #Esopohageal CA s/p resection w/ esophagogastric anastomosis -Patient has a history of dysphagia from anastomosis narrowing acquiring EGD dilations; last such dilation was 2018 -He is denying any dysphagia or odynophagia -Currently on clear liquid diet; can advance diet with continued stability s/p angioedema #H/o GERD with gastritis -Patient is on famotidine at home. At this point, med reconciliation has not been completed. Once finished, continue home med #BPH -On finasteride and tamsulosin at home. -Ones med reconciliation is completed by pharmacy, will continue home meds #History of hyponatremia -sNa at [place] was 130. -currently receiving NS -Morning metabolic panel ordered -will assess based off repeat bmp and likely c/w home NaCl tabs once meds are reconciled byu pharmacy #DVT prophylaxis: sc Lovenox Code status: DNR with trial intubation; new MOLST completed and placed in chart reflecting this. Vital Signs Vital Signs Date Time Temp Pulse Resp B/P (MAP) Pulse Ox O2 Delivery O2 Flow Rate FiO2 4/15/21 20:20 98.2 105 24 178/80 (112) 97 Nasal Cannula 3.0 Laboratory Data Labs 24H Laboratory Tests 2 01/31/21 22:02: Troponin I < 0.02 Home Medications Scheduled Aspirin (Aspirin EC) 81 Mg Tablet.dr, 162 MG PO DAILY Cholecalciferol (Vitamin D3) (Vitamin D3) 1,000 Unit Tablet, 2,000 UNITS PO BID Cyanocobalamin (Vitamin B-12) (Vitamin B-12) 1,000 Mcg Capsule, 1,000 MCG PO DAILY Famotidine (Famotidine) 40 Mg Tablet, 40 MG PO QHS Finasteride (Finasteride) 5 Mg Tablet, 5 MG PO DAILY Fluticasone Propionate (Flonase Allergy Relief) 9.9 Ml Preble.susp, 1 SPRAY NA DAILY Gabapentin (Gabapentin) 100 Mg Capsule, 200 MG PO QHS Loratadine (Loratadine) 10 Mg Tablet, 10 MG PO DAILY Prednisone (Prednisone) 2.5 Mg Tablet, 2.5 MG PO BID Sodium Chloride (Sodium Chloride) 1 Gm Tablet, 1 GM PO QID Sucralfate (Sucralfate) 1 Gm Tablet, 1 GM PO ACHS Tamsulosin HCl (Flomax) 0.4 Mg Capsule, 0.4 MG PO BID Umeclidinium Brm/Vilanterol Tr (Anoro Ellipta 62.5-25 Mcg INH) 1 Each Blst.w.dev, 1 PUFF INH DAILY Scheduled PRN Ipratropium/Albuterol Sulfate (Iprat-Albut 0.5-3(2.5) mg/3 ml) 3 Ml Ampul.neb, 3 ML INH TID PRN for SHORTNESS OF BREATH Allergies Coded Allergies: latex (Verified Allergy, Unknown, rash, 06/08/19) A-FIB/CHADSVASC A-FIB History Current/History of A-Fib/PAF?: No Current PO Anticoag Therapy: No GME ATTESTATION GME ATTESTATION My faculty preceptor for this patient encounter was physically present during the encounter and was fully available. All aspects of the patient interview, examination, medical decision making process, and medical care plan development were reviewed and approved by the faculty preceptor. The faculty preceptor is aware and concurs with the plan as stated in the body of this note and will attest to such by his/her cosignature. ATTENDING NOTE time of service 901pm Mr. Wood is an 86 yr old w a hx of SCC, lung CA, esophageal and stomach CA requiring anastomosis & complicated by dysphagia, COPD, O2 dependence who was transferred from [place] for evaluation of lip swelling; he will be admitted for management of angioedema & we will d/c his Gabapentin, which can cause angioedema, complete the work up for angioedema & order PRN prophylactic meds. rest per 's H&P GENA BLOUNT D.O. Jan 31, 2021 22:56 NEERAJ HENNESSY MD Feb 01, 2021 06:55
[2021-01-31 23:00] VITALS: O2SAT 98
[2021-02-01] VITALS (10 sets, daily range): BP systolic 138–151; BP diastolic 66–82; O2SAT 91–99
[2021-02-01 05:59] LABS: HEMATOCRIT 37.7 % (42.0-52.0); HEMOGLOBIN 13.1 g/dl (13.5-17.5); MEAN CORPUSCULAR HEMOGLOBIN 30.6 pg (27.0-33.0); MEAN CORPUSCULAR HGB CONC 34.7 g/dl (32.0-36.5); MEAN CORPUSCULAR VOLUME 88.1 fl (80.0-96.0); PLATELET COUNT, AUTOMATED 256 10^3/uL (150-450); RED BLOOD COUNT 4.28 10^6/uL (4.30-6.10); WHITE BLOOD COUNT 7.4 10^3/uL (4.0-10.0)
[2021-02-01 06:29] LABS: ALBUMIN 3.4 GM/DL (3.2-5.2); ALT/SGPT 18 U/L (12-78); BILIRUBIN,TOTAL 0.7 MG/DL (0.2-1.0); BLOOD UREA NITROGEN 13 MG/DL (7-18); CALCIUM LEVEL 9.4 MG/DL (8.8-10.2); CARBON DIOXIDE LEVEL 27 MEQ/L (21-32); CHLORIDE LEVEL 96 MEQ/L (98-107); CREATININE FOR GFR 0.75 MG/DL (0.70-1.30); GLOMERULAR FILTRATION RATE > 60.0 (>35); GLUCOSE, FASTING 151 MG/DL (70-100); SODIUM LEVEL 130 MEQ/L (136-145); TOTAL PROTEIN 6.7 GM/DL (6.4-8.2)
[2021-02-01] MEDS ORDERED: diphenhydrAMINE 50MG/ML VIAL (J1200) IV PRN (07:00)
[2021-02-01] MEDS ORDERED: FAMOTIDINE IV BAG 20 MG in IV 1 EA IV PRN (07:00)
[2021-02-01] MEDS ORDERED: methylPREDNISolone 125MG 2ML VIAL IV PRN (07:00)
[2021-02-01] MEDS: NS 1,000 ML IV SCH (08:09)
[2021-02-01 08:49] LABS: C REACTIVE PROTEIN QUANTITATIV 0.43 MG/DL (0.00-0.30); COMPLEMENT C4 20 MG/DL (10-40)
[2021-02-01] MEDS ORDERED: ENOXAPARIN 40MG/0.4ML SYRINGE (J1650 PER 10MG) SC SCH (09:00)
[2021-02-01 09:11] LABS: ERYTHROCYTE SEDIMENTATION RATE 14 mm/hr (0-20)
[2021-02-01] MEDS ORDERED: SUCR1TAB56 PO (09:13)
[2021-02-01] MEDS ORDERED: ASPI81TA26 PO (09:13)
[2021-02-01] MEDS ORDERED: D31000TA2 PO (09:13)
[2021-02-01] MEDS ORDERED: FLOM0.4C39 PO (09:13)
[2021-02-01] MEDS ORDERED: GABA-1171 PO (09:13)
[2021-02-01] MEDS ORDERED: LORA-674 PO (09:13)
[2021-02-01] MEDS ORDERED: ANOR1AER INH (09:13)
[2021-02-01] MEDS ORDERED: FAMO40TA3 PO (09:13)
[2021-02-01] MEDS ORDERED: B-12100010 PO (09:13)
[2021-02-01] MEDS ORDERED: IPRA0.00 INH (09:13)
[2021-02-01] MEDS ORDERED: FLON1SPR (09:13)
[2021-02-01] MEDS ORDERED: FINA5TAB2 PO (09:13)
[2021-02-01] MEDS ORDERED: SODI1TAB6 PO (09:13)
[2021-02-01] MEDS ORDERED: PRED25TA PO (11:19)
--- NOTE | 2021-02-01 11:46 | DS.PDOC ---
Discharge Summary General Date of Admission Jan 31, 2021 at 20:23 Date of Discharge 02/01/2021 Attending Physician: FER SALINAS MD Discharge Summary PROCEDURES PERFORMED DURING STAY: [None]. ADMITTING DIAGNOSES: 1.Idiopathic angioedema 2.Sinus tachycardia 3.Esophageal CA s/p resection w/ esophagogastric anastomosis 4.H/o GERD with gastritis 5.BPH 6.History of hyponatremia DISCHARGE DIAGNOSES: 1.Idiopathic angioedema 2.Esophageal CA s/p resection w/ esophagogastric anastomosis 3.H/o GERD with gastritis 4.BPH 5.History of hyponatremia COMPLICATIONS/CHIEF COMPLAINT: Angioedema. HISTORY OF PRESENT ILLNESS: Patient is a 86yo M w/PMHx of right lung ca (small cell lung cancer, dx 2019, completed 2yrs of Keytruda on 11/2020, not in remission with repeat chest CT q2 yrs, no mets), esophageal ca s/p resection surgery w/ esophagogastric anastomosis, right hip fracture 11/05/20 w/ conservative management, COPD (home O2 qhs 2L/min), and chronic hyponatremia, who was a direct transfer from [facility] on 01/31/21 for continued management of idiopathic angioedema. The patient woke up 01/31 morning and noticed around 9 AM that his lips were getting red. By Noon, both his upper and lower lips, tongue, and all began to swell. The swelling gradually progressed through the early afternoon until around 3 PM when the patient presented to the [facility] emergency department. Patient denied SOB, fever, rash, or altered consciousness. Prior to symptom onset, he only had 2 cups of black coffee and a raspberry turnover. He denies use of any new lotions, soaps, sha mpoos, detergents, and has remained relatively homebound over the past week. He did report that around 2:30 AM on 01/31, he woke up and encountered a large spider in the bathroom. He was able to gather the spider and kill it, but denied ever being bitten. He reported taking his morning meds prior to symptoms onset, including loratadine 10 mg, finasteride 5 mg, daily. Tamsulosin 0.4 mg, a sodium chloride tablet, and used his home Anoro inhaler. His only known allergy is to latex in the form of skin blisters. He has never experienced swelling like this before. In the [facility] ED, a CT of the neck and soft tissues with contrast was performed, and he was subsequently administered 125 mg IV push of Solu-Medrol, 25 mg IV push of Benadryl, oral famotidine, and racemic epinephrine nebulizer treatment. The swelling seemed to improve soon after the medications were given. He was subsequently transferred to [facility] for ENT support in the case of acute decompensation. HOSPITAL COURSE: Upon transfer evaluation in the PCU on evening of 01/31, the patient had no specific symptoms. He feels as though his swelling has improved considerably since prior to treatment at [facility] and is resting comfortably with his typical nighttime supplemental oxygen via [place]. He was administered IV Benadryl and started on IV fluids for hyponatremia (130). Patient's neck CT preliminary reported revealed: "a patent airway with unremarkable epiglottis and no prevertebral soft tissue swelling with no lymphadenopathy". Code status was discussed with patient and patient stated DNR with trial of intubation, molst form signed. On the day of discharge, patient reported improvement in swelling but residual swelling in upper lip and tongue. He continued to deny SOB, CP, fever, chills, N/V/D, dizziness, abd pain, leg swelling and urinary symptoms. Patient was on clear liquid diet for breakfast and tolerated well. He was advanced to regular diet for lunch and reported no issues. He was subsequently discharged with small tappering dose of prednisone and continuation of his home medication. Immunologic workup was started, C4 level normal (20) and functional/non-functional C1 esterase inhibitor level pending. Upon discharge, patient will need follow up with PCP for further immunologic workup. DISCHARGE MEDICATIONS: Please see below. ALLERGIES: Please see below. PHYSICAL EXAMINATION ON DISCHARGE: VITAL SIGNS: See below GENERAL APPEARANCE: Revealed 86 y/o M appears as stated age sitting at bed side, alert & oriented x3, in No Acute Distress. HEENT Exam: Normocephalic and atraumatic, PERRLA, conjunctiva & lids normal, EOMI, without sclera icteric, mucous membr. moist/pink, pharynx normal, nares patent. Upper and lower dentures noted. Mild to moderate swelling on the upper lip with mild tongue swelling. NECK: Supple without lymphadenopathy, JVD, thyromegaly LUNGS: Clear to auscultation bilaterally with full breath sounds without rales, wheezing, and crackles. Port noted on left upper chest wall. CARDIOVASCULAR: Regular rate and rhythm, normal S1 & S2 without gallops, murmurs, rubs ABDOMEN: Soft, non-tender, non-distended with normal bowel sounds. No masses or ecchymosis or hepatosplenomegaly. EXTREMITIES: 2+ pulses in all extremities. No clubbing, cyanosis, edema, tenderness SKIN: Normal turgor and temperature. No rash, lesion MUSCULOSKELETAL: Strength +5/5 in all extremities without tenderness. NEUROLOGICAL: Normal speech with intact sensation, cranial nerves III-XII normal, no gross focal neurologic deficit noted. PSYCHIATRIC: Normal mood and affect LABORATORY DATA: Please see below. IMAGING: No imaging obtained here at [facility]. Preliminary report from [facility] for a CT soft tissue of the neck with contrast: Airway patent. Degenerative changes cervical spine. No lymphadenopathy. No prevertebral soft tissue swelling. Epiglottis unremarkable. PROGNOSIS: Fair ACTIVITY: As tolerated DIET: Regular DISCHARGE PLAN: Patient was discharged with small tappering dose of prednisone and continuation of his home medication. Immunologic workup was started, C4 level normal (20) and functional/non-functional C1 esterase inhibitor level pending. Upon discharge, patient will need follow up with PCP for further immunologic workup. DISPOSITION: Home DISCHARGE INSTRUCTIONS: 1. Please start taking prednisone with the following instructions: a. Take 1 tablet of 2.5mg prednisone by mouth twice daily for the next four days b. After 4 days, lower your medication dose by taking 1 tablet of 2.5mg prednisone by mouth DAILY in the morning only for two more days c. You should be finished with your prednisone medications in 6 days after discharge 2. Please return to the ED if your symptoms worsen. 3. Please follow up with your primary care physician in 1 week. ITEMS TO FOLLOWUP ON ON OUTPATIENT: 1. functional serum C1 esterase inhibitor level 2. Non-functional serum C1 esterase inhibitor level DISCHARGE CONDITION: Stable. TIME SPENT ON DISCHARGE: Greater than 30 minutes. Vital Signs/I&Os Vital Signs Date Time Temp Pulse Resp B/P (MAP) Pulse Ox O2 Delivery O2 Flow Rate FiO2 02/01/21 08:00 97.6 96 20 140/81 (100) 97 Nasal Cannula 2.0 I&O- Last 24 Hours up to 6 AM 02/01/21 06:00 Intake Total 200 ml Output Total 1300 ml Balance -1100 ml Laboratory Data Labs 24H Laboratory Tests 2 01/31/21 22:02: Troponin I < 0.02 02/01/21 05:41: Nucleated Red Blood Cells % (auto) 0.0, Erythrocyte Sedimentation Rate 14, Anion Gap 7L, Glomerular Filtration Rate > 60.0, Calcium Level 9.4, Total Bilirubin 0.7, Aspartate Amino Transf (AST/SGOT) 9, Alanine Aminotransferase (ALT/SGPT) 18, Alkaline Phosphatase 138H, C-Reactive Protein, Quantitative 0.43H, Total Protein 6.7, Albumin 3.4, Albumin/Globulin Ratio 1.0, Complement C4 20 02/01/21 06:56: CBC/BMP Laboratory Tests 02/01/21 05:41 Discharge Medications Scheduled Aspirin (Aspirin EC) 81 Mg Tablet.dr, 162 MG PO DAILY, (Reported) Cholecalciferol (Vitamin D3) (Vitamin D3) 1,000 Unit Tablet, 2,000 UNITS PO BID, (Reported) Cyanocobalamin (Vitamin B-12) (Vitamin B-12) 1,000 Mcg Capsule, 1,000 MCG PO DAILY, (Reported) Famotidine (Famotidine) 40 Mg Tablet, 40 MG PO QHS, (Reported) Finasteride (Finasteride) 5 Mg Tablet, 5 MG PO DAILY, (Reported) Fluticasone Propionate (Flonase Allergy Relief) 9.9 Ml [place].susp, 1 SPRAY NA DAILY, (Reported) Gabapentin (Gabapentin) 100 Mg Capsule, 200 MG PO QHS, (Reported) Loratadine (Loratadine) 10 Mg Tablet, 10 MG PO DAILY, (Reported) Prednisone (Prednisone) 2.5 Mg Tablet, 2.5 MG PO BID Sodium Chloride (Sodium Chloride) 1 Gm Tablet, 1 GM PO QID, (Reported) Sucralfate (Sucralfate) 1 Gm Tablet, 1 GM PO ACHS, (Reported) Tamsulosin HCl (Flomax) 0.4 Mg Capsule, 0.4 MG PO BID, (Reported) Umeclidinium Brm/Vilanterol Tr (Anoro Ellipta 62.5-25 Mcg INH) 1 Each Blst.w.dev, 1 PUFF INH DAILY, (Reported) Scheduled PRN Ipratropium/Albuterol Sulfate (Iprat-Albut 0.5-3(2.5) mg/3 ml) 3 Ml Ampul.neb, 3 ML INH TID PRN for SHORTNESS OF BREATH, (Reported) Allergies Coded Allergies: latex (Verified Allergy, Unknown, rash, 06/08/19) GME ATTESTATION GME ATTESTATION My faculty preceptor for this patient encounter was physically present during the encounter and was fully available. All aspects of the patient interview, examination, medical decision making process, and medical care plan development were reviewed and approved by the faculty preceptor. The faculty preceptor is aware and concurs with the plan as stated in the body of this note and will attest to such by his/her cosignature. ATTENDING NOTE I, Fer Salinas MD, have independently examined this patient and performed my own physical exam, as well as reviewed the documentation and edited where necessary. I have discussed in detail with the resident / student the findings and plan of treatment as documented by the resident / student and edited their note. I agree with their findings and treatment plan and have edited their documentation. Total time spent on this patient including coordination of care, review of chart documentation and actual patient contact is around 35 minutes ANNEMARIE LASSITER OMS-3 Feb 01, 2021 11:46 FER SALINAS MD Feb 01, 2021 15:59
--- NOTE | 2021-02-02 20:42 | ECGEPIP ---
[facility] Test Date: 2021-01-31 Pat Name: ANTONIO ABRAMS Department: Room: [place] [address] Gender: Male [employer]: [id number] : [id number] Requested By: GENA BLOUNT D.O. Order Number: [id number] Reading MD: Livan Allan Measurements Intervals [place] Rate: 103 P: 73 MI: 158 QRS: -49 QRSD: 118 T: 140 QT: 364 QTc: 476 Interpretive Statements Sinus tachycardia with premature supraventricular complexes Left anterior fascicular block Possible Septal infarct , age undetermined No prior tracing in the system Electronically Signed on 02-02-2021 20:42:19 EDT by Livan Allan
== END 2021-02-01 14:42 | disposition home or self-care (01) | DRG 916 ==
LOC: M PCU 20:23
PROVIDERS: ADMIT General Practice; ATTEND Internal Medicine
DX: T78.3XXA Angioneurotic edema, initial encounter (principal); C34.90 Malignant neoplasm of unspecified part of unspecified bronchus or lung; E87.1 Hypo-osmolality and hyponatremia; K21.9 Gastro-esophageal reflux disease without esophagitis; N40.0 Benign prostatic hyperplasia without lower urinary tract symptoms; K29.70 Gastritis, unspecified, without bleeding; J44.9 Chronic obstructive pulmonary disease, unspecified; Z91.040 Latex allergy status; Z79.82 Long term (current) use of aspirin; Z79.899 Other long term (current) drug therapy; Z87.891 Personal history of nicotine dependence; Z99.81 Dependence on supplemental oxygen

== ENCOUNTER → 2023-02-10 | Outpatient (CLI) | payer MEDICARE ==
[~2023-02-10] MED LIST changes: +ANOR1AER INH; +ASPI81TA26 PO; +B-12100010 PO; +FAMO40TA3 PO; +FLON1SPR; +IPRA0.00 INH; +OMEP40CA4 PO; -OMEP40CA97 PO; +PRED25TA PO; +SODI1TAB6 PO; +SUCR1TAB56 PO; +VITA100093 PO
== END ==
LOC: M CARPUL 12:58
PROVIDERS: ATTEND Internal Medicine Critical Care Medicine
DX: J84.10 Pulmonary fibrosis, unspecified (principal); T78.3XXA Angioneurotic edema, initial encounter; Z99.81 Dependence on supplemental oxygen; Z79.899 Other long term (current) drug therapy

== ENCOUNTER → 2023-02-27 | Outpatient (CLI) | payer MEDICARE ==
[2023-02-27 12:39] LABS: ABG BASE EXCESS -1.2 (-2.0-2.0); ABG HCO3 22.3 MMOL/L (22.0-26.0); ABG O2 SATURATION 97.4 % (95.0-99.0); ABG PARTIAL PRESSURE CO2 33.8 mmHg (35.0-45.0); ABG PARTIAL PRESSURE O2 94.1 mmHg (75.0-100.0); ABG STANDARD HCO3 23.5 MMOL/L. (22.0-26.0); ABG TOTAL CO2 23.3 MMOL/L (23.0-31.0); ABG pH (ARTERIAL) 7.437 UNITS (7.350-7.450)
== END ==
LOC: M LAB 12:17
PROVIDERS: ATTEND Internal Medicine Critical Care Medicine
DX: R09.02 Hypoxemia (principal)

== ENCOUNTER 2023-12-02 08:22 | Day surgery (SDC) | payer MEDICARE ==
[~2023-12-02] VITALS: Ht 172.7 cm; Wt 55.5 kg
[~2023-12-02 08:22] MED LIST changes: +LORA-1041 PO; -LORA-674 PO; +MIDAZOLAM 5MG/ML 1ML VIAL As Ordered ONE; +PHENYLEPHRINE 10% OPHTH SOL 5ML OS PRN; +SODI1TAB12 PO
[2023-12-02] MEDS: LIDOCAINE 3.5 % 1ML OPHTH TOPICAL GEL OU ONE (08:45)
[2023-12-02] MEDS: OFLOXACIN 0.3 % (OCUFLOX) OPTH SOL 5ML OS ONE (08:45)
[2023-12-02] MEDS: CYCLOPENTOLATE 1% OPHTH SOLN 2ML BTL OS SCH (09:05)
[2023-12-02] MEDS: TROPICAMIDE 1% OPHTH SOLN 15ML OS SCH (09:06)
[2023-12-02] MEDS: PHENYLEPHRINE 2.5% OPHTH SOL 2ML OS SCH (09:06)
[2023-12-02] MEDS: CEFUROXIME 1MG/0.1ML INTRACAMERAL INJ As Ordered ONE (09:38)
[2023-12-02] MEDS: BSS IRRIG/VANCO(10MG)/TOBRA(5MG)/EPINEPH(1:1000-0.5CC)500ML BAG-ORONLY As Ordered ONE (09:38)
[2023-12-02] MEDS: LIDOCAINE 1% SDV 5ML VIAL As Ordered ONE (09:38)
[2023-12-02 09:54] VITALS: BP 149/70; TEMP 97.8; O2SAT 99
== END 2023-12-02 08:23 | disposition home or self-care (01) ==
LOC: M SDC 08:22
PROVIDERS: ATTEND Ophthalmology
DX: H25.12 Age-related nuclear cataract, left eye (principal); H57.03 Miosis; Z91.040 Latex allergy status; Z85.01 Personal history of malignant neoplasm of esophagus; Z85.118 Personal history of other malignant neoplasm of bronchus and lung; Z87.891 Personal history of nicotine dependence; Z79.82 Long term (current) use of aspirin; Z79.899 Other long term (current) drug therapy
CPT/HCPCS: 66982; 92015; J0697; J2250; V2632

== ENCOUNTER 2023-12-09 07:46 | Day surgery (SDC) | payer MEDICARE ==
[~2023-12-09] VITALS: Ht 172.7 cm; Wt 55.6 kg
[~2023-12-09 07:46] MED LIST changes: -MIDAZOLAM 5MG/ML 1ML VIAL As Ordered ONE; +PHENYLEPHRINE 10% OPHTH SOL 5ML OD PRN; -PHENYLEPHRINE 10% OPHTH SOL 5ML OS PRN
[2023-12-09] MEDS: CYCLOPENTOLATE 1% OPHTH SOLN 2ML BTL OD SCH (09:05)
[2023-12-09] MEDS: OFLOXACIN 0.3 % (OCUFLOX) OPTH SOL 5ML OD ONE (09:05)
[2023-12-09] MEDS: TROPICAMIDE 1% OPHTH SOLN 15ML OD SCH (09:05)
[2023-12-09] MEDS: PHENYLEPHRINE 2.5% OPHTH SOL 2ML OD SCH (09:05)
[2023-12-09] MEDS: LIDOCAINE 3.5 % 1ML OPHTH TOPICAL GEL OU ONE (09:06)
[2023-12-09] MEDS: LIDOCAINE 1% SDV 5ML VIAL As Ordered ONE (09:37)
[2023-12-09] MEDS: BSS IRRIG/VANCO(10MG)/TOBRA(5MG)/EPINEPH(1:1000-0.5CC)500ML BAG-ORONLY As Ordered ONE (09:37)
[2023-12-09] MEDS: CEFUROXIME 1MG/0.1ML INTRACAMERAL INJ As Ordered ONE (09:37)
[2023-12-09 09:40] VITALS: BP 163/73; TEMP 97.6; O2SAT 97
[2023-12-09] MEDS ORDERED: fentaNYL 100 MCG/2 ML INJECTION As Ordered ONE (09:41)
[2023-12-09] MEDS ORDERED: MIDAZOLAM INJ 2MG/2ML VIAL As Ordered ONE (09:41)
== END 2023-12-09 10:00 | disposition home or self-care (01) ==
LOC: M SDC 07:46
PROVIDERS: ATTEND Ophthalmology
DX: H25.11 Age-related nuclear cataract, right eye (principal); H57.03 Miosis; N40.0 Benign prostatic hyperplasia without lower urinary tract symptoms; Z79.82 Long term (current) use of aspirin; Z79.899 Other long term (current) drug therapy; Z85.01 Personal history of malignant neoplasm of esophagus; Z85.118 Personal history of other malignant neoplasm of bronchus and lung; Z87.891 Personal history of nicotine dependence; Z90.49 Acquired absence of other specified parts of digestive tract
CPT/HCPCS: 66982; 92015; J0697; J2250; J3010; V2632

== ENCOUNTER 2024-06-15 17:14 | Inpatient (IN) | payer MEDICARE ==
[~2024-06-15] VITALS: Ht 172.7 cm; Wt 56.8 kg
[~2024-06-15 17:14] MED LIST changes: -PHENYLEPHRINE 10% OPHTH SOL 5ML OD PRN
[2024-06-15] MEDS ORDERED: CVSTAB PO (17:28)
[2024-06-15] MEDS ORDERED: CALC600C3 PO (17:28)
[2024-06-15] MEDS ORDERED: OMEG350C PO (17:28)
[2024-06-15] MEDS ORDERED: ISOVUE-370 76% 100ML VIAL As Ordered ONE (17:36)
[2024-06-15 17:49] LABS: BASO % 0.6 % (0.0-1.0); EOS # 0.3 10^3/uL (0.0-0.5); EOS % 3.8 % (0.0-3.0); HEMATOCRIT 37.9 % (42.0-52.0); LYMPH # 0.8 10^3/uL (1.5-5.0); LYMPH % 10.9 % (24.0-44.0); MEAN CORPUSCULAR HEMOGLOBIN 31.5 pg (27.0-33.0); MEAN CORPUSCULAR HGB CONC 34.3 g/dl (32.0-36.5); MEAN CORPUSCULAR VOLUME 91.8 fl (80.0-96.0); MONO # 0.8 10^3/uL (0.0-0.8); MONO % 10.7 % (2.0-8.0); NEUTROPHILS # 5.3 10^3/uL (1.5-8.5); NEUTROPHILS % 73.6 % (36.0-66.0); PLATELET COUNT, AUTOMATED 219 10^3/uL (150-450); RED BLOOD COUNT 4.13 10^6/uL (4.30-6.10); WHITE BLOOD COUNT 7.2 10^3/uL (4.0-10.0)
[2024-06-15 18:16] LABS: ALBUMIN 3.7 G/DL (3.2-5.2); ALKALINE PHOSPHATASE 85 U/L (46-116); ALT/SGPT 14 U/L (7.0-40); AST/SGOT < 8 U/L (<34); BILIRUBIN,DIRECT 0.2 MG/DL (<0.4); BILIRUBIN,TOTAL 0.6 MG/DL (0.3-1.2); BLOOD UREA NITROGEN 19 MG/DL (9-23); CALCIUM LEVEL 9.6 MG/DL (8.3-10.6); CARBON DIOXIDE LEVEL 33 MMOL/L (20-31); CHLORIDE LEVEL 102 MMOL/L (98-107); CREATININE FOR GFR 0.79 MG/DL (0.70-1.30); GLOMERULAR FILTRATION RATE > 60.0 (>35); GLUCOSE, FASTING 92 MG/DL (74-106); POTASSIUM SERUM 3.7 MMOL/L (3.5-5.1); SODIUM LEVEL 138 MMOL/L (136-145); TOTAL PROTEIN 6.5 G/DL (5.7-8.2)
[2024-06-15 18:31] LABS: INR 1.03; PARTIAL THROMBOPLASTIN TIME 30.7 SECONDS (24.8-34.2); PROTHROMBIN TIME 13.2 SECONDS (12.5-14.5)
[2024-06-15] MEDS ORDERED: ALBU2.5V10 NEB (19:52)
[2024-06-15] MEDS ORDERED: AZEL0.05 OU (19:52)
[2024-06-15] MEDS ORDERED: HOME MED LIST COMPLETE! XX SCH (19:55)
[2024-06-15] MEDS ORDERED: MOM 30ML SUSPENSION UDC PO PRN (21:10)
[2024-06-15] MEDS ORDERED: ACETAMINOPHEN TAB 650MG DOSE (2X325MG) PO PRN (21:10)
[2024-06-15] MEDS ORDERED: MAALOX 30 ML SUSP *UDC PO PRN (21:10)
[2024-06-15 21:44] LABS: CHOLESTEROL LEVEL 156 MG/DL (<200); CHOLESTEROL RISK RATIO 2.41 (<5); HDL CHOLESTEROL 64.5 MG/DL (>40); LDL CHOLESTEROL 79.5 MG/DL (<100); NON-HDL-C 91.5 MG/DL; TRIGLYCERIDES LEVEL 60 MG/DL (<150)
[2024-06-15] MEDS: ATORVASTATIN 20 MG TAB PO ONE (23:10)
[2024-06-15] MEDS: CLOPIDOGREL 75 MG TAB PO SCH (23:15)
[2024-06-16] VITALS (19 sets, daily range): BP systolic 117–174; BP diastolic 62–124; TEMP 96.9–97.9; O2SAT 89–100
[2024-06-16] MEDS: LR 1,000 ML IV SCH (06:44)
[2024-06-16 08:39] LABS: BASO % 0.5 % (0.0-1.0); EOS # 0.3 10^3/uL (0.0-0.5); EOS % 3.1 % (0.0-3.0); HEMOGLOBIN 13.9 g/dl (13.5-17.5); LYMPH # 0.7 10^3/uL (1.5-5.0); LYMPH % 8.7 % (24.0-44.0); MEAN CORPUSCULAR HEMOGLOBIN 31.2 pg (27.0-33.0); MEAN CORPUSCULAR HGB CONC 34.8 g/dl (32.0-36.5); MEAN CORPUSCULAR VOLUME 89.9 fl (80.0-96.0); MONO # 0.8 10^3/uL (0.0-0.8); MONO % 9.3 % (2.0-8.0); NEUTROPHILS # 6.4 10^3/uL (1.5-8.5); PLATELET COUNT, AUTOMATED 233 10^3/uL (150-450); RED BLOOD COUNT 4.45 10^6/uL (4.30-6.10); WHITE BLOOD COUNT 8.2 10^3/uL (4.0-10.0)
[2024-06-16 08:55] LABS: BLOOD UREA NITROGEN 14 MG/DL (9-23); CALCIUM LEVEL 9.5 MG/DL (8.3-10.6); CARBON DIOXIDE LEVEL 30 MMOL/L (20-31); CHLORIDE LEVEL 101 MMOL/L (98-107); CREATININE FOR GFR 0.67 MG/DL (0.70-1.30); GLOMERULAR FILTRATION RATE > 60.0 (>35); GLUCOSE, FASTING 113 MG/DL (74-106); MAGNESIUM LEVEL 1.8 MG/DL (1.8-2.4); POTASSIUM SERUM 3.7 MMOL/L (3.5-5.1); SODIUM LEVEL 135 MMOL/L (136-145)
[2024-06-16] MEDS: ATORVASTATIN 20 MG TAB PO SCH (09:00)
[2024-06-16] MEDS: CYANOCOBALAMIN 500 MCG TAB PO SCH (09:00)
[2024-06-16] MEDS ORDERED: AZELASTINE 137MCG NASAL SPY 30 ML (ASTELIN) SCH (09:00)
[2024-06-16] MEDS: LORATADINE 10 MG TAB PO SCH (09:00)
[2024-06-16] MEDS: ASPIRIN 81MG ENTERIC TABLET PO SCH (09:00)
[2024-06-16] MEDS: ENOXAPARIN 40MG/0.4ML SYRINGE (J1650 PER 10MG) SC SCH (09:01)
[2024-06-16] MEDS: VITAMIN D 1,000 INTERNATIONAL UNITS TABLET PO SCH (09:01)
[2024-06-16] MEDS: TAMSULOSIN 0.4 MG CAP PO SCH (09:01)
[2024-06-16] MEDS: FINASTERIDE 5MG TAB PO SCH (09:01)
[2024-06-16] MEDS: SODIUM CHLORIDE 1 GM TAB PO SCH (09:58)
[2024-06-16 12:33] LABS: HEMOGLOBIN A1c 5.6 % (4.0-6.0)
[2024-06-16] MEDS: FLUTICASONE PROP 0.05% NASAL SPRAY 16 GM (FLONASE) SCH (20:18)
[2024-06-16] MEDS: FAMOTIDINE 20 MG TAB PO SCH (20:21)
[2024-06-16] MEDS: GABAPENTIN 100 MG CAP PO SCH (20:21)
[2024-06-17] VITALS (12 sets, daily range): BP systolic 122–164; BP diastolic 66–82; TEMP 96.6–97.7; O2SAT 85–98
[2024-06-17 07:37] LABS: HEMATOCRIT 38.4 % (42.0-52.0); HEMOGLOBIN 13.6 g/dl (13.5-17.5); MEAN CORPUSCULAR HEMOGLOBIN 31.6 pg (27.0-33.0); MEAN CORPUSCULAR HGB CONC 35.4 g/dl (32.0-36.5); MEAN CORPUSCULAR VOLUME 89.3 fl (80.0-96.0); PLATELET COUNT, AUTOMATED 230 10^3/uL (150-450); WHITE BLOOD COUNT 8.1 10^3/uL (4.0-10.0)
[2024-06-17 07:57] LABS: BLOOD UREA NITROGEN 12 MG/DL (9-23); CALCIUM LEVEL 9.5 MG/DL (8.3-10.6); CARBON DIOXIDE LEVEL 31 MMOL/L (20-31); CHLORIDE LEVEL 102 MMOL/L (98-107); GLOMERULAR FILTRATION RATE > 60.0 (>35); GLUCOSE, FASTING 115 MG/DL (74-106); MAGNESIUM LEVEL 1.7 MG/DL (1.8-2.4); SODIUM LEVEL 135 MMOL/L (136-145)
[2024-06-17] MEDS: DONEPEZIL 5 MG TAB PO SCH (08:46)
[2024-06-17] MEDS ORDERED: ARIC1TAB PO (10:03)
[2024-06-17] MEDS ORDERED: ATOR1TAB21 PO (10:03)
[2024-06-17] MEDS ORDERED: CLOP75TA2 PO (10:03)
[2024-06-17] MEDS ORDERED: ASPI81TA26 PO (11:30)
== END 2024-06-17 12:39 | disposition home or self-care (01) | DRG 65 ==
LOC: M ED 17:14 → EDBD 17:14 → M ED INP 20:48 → M ICU 06-16 09:28
PROVIDERS: ADMIT Family Medicine; ATTEND Family Medicine
PROC: B246ZZZ Ultrasonography of Right and Left Heart (ICD-10-PCS; principal; 2024-06-16)
DX: I63.9 Cerebral infarction, unspecified (principal); E87.1 Hypo-osmolality and hyponatremia; K21.9 Gastro-esophageal reflux disease without esophagitis; J44.9 Chronic obstructive pulmonary disease, unspecified; N40.0 Benign prostatic hyperplasia without lower urinary tract symptoms; R47.01 Aphasia; I10 Essential (primary) hypertension; G62.9 Polyneuropathy, unspecified; Z79.82 Long term (current) use of aspirin; Z79.899 Other long term (current) drug therapy; Z91.040 Latex allergy status; Z99.81 Dependence on supplemental oxygen; Z85.118 Personal history of other malignant neoplasm of bronchus and lung; Z87.891 Personal history of nicotine dependence; Z86.003 Personal history of in-situ neoplasm of oral cavity, esophagus and stomach; Z98.42 Cataract extraction status, left eye; Z90.49 Acquired absence of other specified parts of digestive tract

== ENCOUNTER → 2025-08-23 | Outpatient (CLI) | payer MEDICARE ==
[~2025-08-23] MED LIST changes: +ALBU2.5V10 NEB; +ARIC1TAB PO; +ATOR1TAB21 PO; +AZEL0.05 OU; +CALC600C3 PO; +CLOP75TA2 PO; +CVSTAB PO; -FLOM0.4C39 PO; -KEYT1INJ IV; +OMEG350C PO; +PEMB100V2 IV; +TAMS-18 PO
[2025-08-23 15:13] LABS: CALCIUM LEVEL 9.0 MG/DL (8.3-10.6); CARBON DIOXIDE LEVEL 33 MMOL/L (20-31); CHLORIDE LEVEL 97 MMOL/L (98-107); CREATININE FOR GFR 0.65 MG/DL (0.70-1.30); GLOMERULAR FILTRATION RATE > 90.0 (>35); POTASSIUM SERUM 3.8 MMOL/L (3.5-5.1); SODIUM LEVEL 138 MMOL/L (136-145)
== END ==
LOC: M WUC 12:47
PROVIDERS: ATTEND Nurse Practitioner Family
DX: M81.0 Age-related osteoporosis without current pathological fracture (principal); E55.9 Vitamin D deficiency, unspecified

== ENCOUNTER → 2025-08-23 | Outpatient (CLI) | payer MEDICARE ==
[2025-08-23 14:40] LABS: BASO # 0.1 10^3/uL (0.0-0.2); BASO % 0.6 % (0.0-1.0); EOS # 0.3 10^3/uL (0.0-0.5); EOS % 2.5 % (0.0-3.0); LYMPH # 0.8 10^3/uL (1.5-5.0); LYMPH % 8.0 % (24.0-44.0); MONO # 0.8 10^3/uL (0.0-0.8); MONO % 7.5 % (2.0-8.0); NEUTROPHILS # 8.2 10^3/uL (1.5-8.5); NEUTROPHILS % 81.1 % (36.0-66.0); PLATELET COUNT, AUTOMATED 327 10^3/uL (150-450)
[2025-08-23 15:13] LABS: ALT/SGPT 19.0 U/L (7.0-40); AST/SGOT 18.0 U/L (<34); CALCIUM LEVEL 9.5 MG/DL (8.3-10.6); CARBON DIOXIDE LEVEL 32.0 MMOL/L (20-31); CHLORIDE LEVEL 99.0 MMOL/L (98-107); CREATININE FOR GFR 0.73 MG/DL (0.70-1.30); GLOMERULAR FILTRATION RATE 87.5 (>35); POTASSIUM SERUM 4.0 MMOL/L (3.5-5.1); SODIUM LEVEL 140.0 MMOL/L (136-145)
[2025-08-23 15:15] LABS: VITAMIN B12 LEVEL 598.0 PG/ML (211-911)
== END ==
LOC: M WUC 12:49
PROVIDERS: ATTEND Psychiatry & Neurology Neurology
DX: E53.8 Deficiency of other specified B group vitamins (principal); M81.0 Age-related osteoporosis without current pathological fracture; E55.9 Vitamin D deficiency, unspecified; E53.1 Pyridoxine deficiency; E51.9 Thiamine deficiency, unspecified; I63.9 Cerebral infarction, unspecified; R41.3 Other amnesia